=== PATIENT | female | born 1960 | race Caucasian/White ===

== ENCOUNTER 2022-03-09 12:44 | Observation (INO) | payer OTHER, SELFPAY ==
[2022-03-09] VITALS (26 sets, daily range): BP systolic 130–159; BP diastolic 63–118; PULSE 62–88; RESP 18–22; TEMP 36.6–36.8; O2SAT 92–100; BMI 20.3
--- NOTE | ~2022-03-09 | XR_ITS ---
XR chest 1V portable DATE: 03/10/2022 11:59 INDICATION: Shortness of breath. History of COPD, bronchitis TECHNIQUE: Portable upright AP chest on 03/10/2022 at 1153 hours COMPARISON: 03/09/2022 PA and lateral chest 03/04/2019 2 view chest FINDINGS: There is 11 mm soft tissue mass overlying the right apical area. On 2 previous chest radiog raphic examinations of 03/09/2022 and 03/04/2019 this corresponded in location to the first costochondral junction, but with different angulation on this portable view this does not project over the first c ostochondral junction and is presumably pulmonary. CT thorax is recommended. It does not appear to apple ve changed in size since 03/04/2019 and may be calcified, but CT thorax is recommended for more definit rodo assessment, particularly given the history of COPD. Bilateral hyperinflation, consistent with history of COPD. No pulmonary infiltrate or consolidation, pleural effusion or pulmonary vascular congestion or pneumothorax is detected. Heart size is within normal limits. No hilar or mediastinal enlargement is noted. There is diffuse osteopenia. IMPRESSION: 11 mm right apical mass; CT thorax is recommended COPD Osteopenia Reviewed, dictated and finalized at location A.
--- NOTE | ~2022-03-09 | XR_ITS ---
EXAMINATION: XR chest 2V DATE: 03/09/2022 14:20 INDICATION: Shortness of breath. Cough. TECHNIQUE: Frontal and lateral views of the chest were obtained. COMPARISON: None. FINDINGS: The lungs are hyperexpanded, consistent with emphysema. There is mild scarring at the lung apices. No pleural effusion or pneumothorax. The heart size is normal. Again seen is sclerosis of the junction of the right first rib and sternum. There is a chronic compression fracture at thoracolumba r junction. IMPRESSION: 1. Emphysema. 2. Stable mild scarring at the lung apices. Reviewed, dictated and finalized at location A.
--- NOTE | 2022-03-09 13:20 | ECG_ITS ---
Measurements Intervals [place] Rate: 62 P: 43 KS: 141 QRS: 40 QRSD: 102 T: 56 QT: 358 QTc: 364 Interpretive Statements SINUS RHYTHM NONSPECIFIC T-WAVE ABNORMALITY COMPARED TO ECG 03/04/2019 16:17:13 SINUS RHYTHM NOW PRESENT T-WAVE ABNORMALITY NOW PRESENT Electronically Signed On 03-09-2022 15:38:56 CDT by Cristi Meyer MD
[2022-03-09 13:36] LABS: Basophils Percent Auto 0.3 % (0.2-1.2); Eosinophils Absolute Auto 0.1 K/mm3 (0-0.3); Eosinophils Percent Auto 0.9 % (0-4.4); Hematocrit 33.3 % (37.0-47.0); Hemoglobin 10.6 g/dL (12.0-15.0); Immature Granulocyte Absolute 0.02 K/mm3 (0.00-0.031); Immature Granulocyte Percent A 0.3 % (0-0.5); Lymphocytes Absolute Auto 1.39 K/mm3 (0.9-3.2); Lymphocytes Percent Auto 17.5 % (18.3-44.2); Mean Corpuscular HGB Conc 31.8 g/dl (32-36); Mean Corpuscular Hemoglobin 27.5 pg (26-34); Mean Corpuscular Volume 86.5 fl (80-100); Mean Platelet Volume 9.5 fl (7.4-10.4); Monocytes Absolute Auto 0.6 K/mm3 (0.1-0.6); Monocytes Percent Auto 8.1 % (2.6-8.5); Neutrophils Absolute Auto 5.8 K/mm3 (1.3-6.7); Neutrophils Percent Auto 72.9 % (45.5-73.1); Platelet Count Result 259 k/mm3 (150-375); Red Blood Count 3.85 M/mm3 (4.2-5.4)
[2022-03-09 13:49] LABS: Alanine Aminotransferase 22 U/L (6-35); Albumin Level 3.4 g/dL (3.5-5.1); Alkaline Phosphatase 67 U/L (38-126); Anion Gap 5 mmol/L (8-16); Aspartate Amino Transferase 29 U/L (14-36); Bilirubin,Total 0.4 mg/dL (0.2-1.3); Blood Urea Nitrogen 3 mg/dL (7-17); Calcium 7.9 mg/dL (8.4-10.2); Carbon Dioxide 30 mmol/L (22-30); Chloride 105 mmol/L (98-107); Estimated CRCL calculation 82 ml/min; Estimated Glomerular Filt Rate > 60; Glucose 103 mg/dL (65-110); Potassium 2.7 mmol/L (3.4-5.0); Sodium 140 mmol/L (137-145)
--- NOTE | 2022-03-09 14:40 | ED.SOB ---
HPI - SOB/Dyspnea General Chief Complaint: Shortness of Breath/Dyspnea Stated Complaint: cough up phlegm Time Seen by Provider: 03/09/22 14:13 Source: RN notes reviewed History of Present Illness HPI Narrative: Patient presents emergency department from home for shortness of breath. Patient states that she is had an upper respiratory infection for the past 1 week. States that she has had a cough this been productive of green phlegm also states has had subjective fevers at home but does not have a thermometer patient states that she was concerned she was developing pneumonia and came to the emergency department for further evaluation. She denies any chest pain abdominal pain nausea vomiting or any other symptoms. States she has had the COVID vaccination and booster Related Data Allergies Allergy/AdvReac Type Severity Reaction Status Date / Time meperidine Allergy Unknown anaphlaxis Verified 11/19/21 16:52 orange Allergy Unknown Verified 11/19/21 16:52 Review of Systems Review of Systems: Gen.: Denies fevers or chills ENT: Denies congestion Respiratory: See HPI CV: Denies chest pain or palpitations GI: Denies abdominal pain nausea, emesis or diarrhea Musculoskeletal: Denies back pain or muscle pain Neuro: Denies numbness, tingling, weakness or focal weakness Skin: Denies rash Except as documented, all other systems reviewed and negative [facility] Past Medical History Medical History (Updated 03/09/22 @ 16:46 by Zuhair Cruz DO) COPD (chronic obstructive pulmonary disease) Social History Social History (Updated 03/09/22 @ 14:41 by Zuhair Cruz DO) Smoking status: Former smoker Exam Narrative: APPEARANCE: No acute distress, nontoxic, resting in bed EYES: EOMI HEENT: Normocephalic, atraumatic, OMM RESPIRATORY: No respiratory distress decreased breath sounds at the bilateral lung waddell with mild wheezing in the upper lung waddell no rhonchi CARDIOVASCULAR: Regular rate and rhythm without murmurs rubs or gallops. ABDOMINAL: Soft, nontender, nondistended, no rebound or guarding MUSCULOSKELETAl: Moves all extremities. No clubbing, cyanosis or edema. NEURO: Awake and alert. Following commands, speech normal, no focal deficits SKIN:: Warm, dry. No rashes lesions or abrasions PSYCHIATRIC: Normal affect/mood, Course Course Emergency Course: Discussed with MAUREEN Patricia for Dr. Murrell presentation work-up agrees with plan for admission with replacement of potassium Discussed with patient and family results of workup and diagnosis. Discussed need for admission. Patient and family understand and agree to current treatment plan Vital Signs Vital signs: Vital Signs Temperature 97.9 F 03/09/22 13:16 Pulse Rate 76 03/09/22 13:16 Respiratory Rate 22 H 03/09/22 13:16 Blood Pressure 156/80 H 03/09/22 13:16 Pulse Oximetry 95 03/09/22 13:16 Oxygen Delivery Room Air 03/09/22 13:16 Temperature 97.9 F 03/09/22 13:16 Pulse Rate 75 03/09/22 15:37 Respiratory Rate 18 03/09/22 15:37 Blood Pressure 130/106 H 03/09/22 16:33 Pulse Oximetry 92 03/09/22 16:33 Oxygen Delivery Room Air 03/09/22 13:16 MDM - SOB/Dyspnea Lab Data Result diagrams: 03/09/22 13:28 03/09/22 13:28 Labs: Lab Results 03/09/22 03/09/22 03/09/22 Range/Units 13:28 13:28 13:28 WBC 8.0 (4.5-10.0) K/mm3 RBC 3.85 L (4.2-5.4) M/mm3 Hgb 10.6 L (12.0-15.0) g/dL Hct 33.3 L (37.0-47.0) % MCV 86.5 (80-100) fl MCH 27.5 (26-34) pg MCHC 31.8 L (32-36) g/dl RDW 15.0 H (11.5-14.5) % Plt Count 259 (150-375) k/mm3 MPV 9.5 (7.4-10.4) fl Immature Gran % (Auto) 0.3 (0-0.5) % Neut % (Auto) 72.9 (45.5-73.1) % Lymph % (Auto) 17.5 L (18.3-44.2) % [place] % (Auto) 8.1 (2.6-8.5) % Eos % (Auto) 0.9 (0-4.4) % Baso % (Auto) 0.3 (0.2-1.2) % Lymph # (Auto) 1.39 (0.9-3.2) K/mm3 [place] # (Auto) 0.6 (0.1-0.6) K/mm3 Eos
[2022-03-09 14:50] LABS: Magnesium 1.8 mg/dL (1.6-2.3)
[2022-03-09] MEDS: KCL 40 MEQ/WATER 100 ML 100 ML 25 ML IVPB (14:55)
[2022-03-09] MEDS: POTASSIUM CHLORIDE 20 MEQ TABLET 40 MEQ PO (14:56)
[2022-03-09 15:14] LABS: SARS-CoV-2 RNA PCR Negative
[2022-03-09] MEDS: ALBUTEROL SULFATE NEB 2.5 MG/3 ML INH 5 MG INHALATION ×2 (15:25→21:00)
[2022-03-09] MEDS: IPRATROPIUM BR 0.02% INH SOLN 0.5 MG/2.5 ML VIAL INHALATION ×2 (15:25→21:01)
[2022-03-09] MEDS: methylPREDNISolone SOD SUCC 125 MG VIAL IV PUSH (17:10)
--- NOTE | 2022-03-09 17:41 | ADMGEN ---
This patient, Roxanne Zavala, was admitted to Medical Room 347-. Patient/family oriented to hospital policies and general routines including ID bracelet, bed and alarms, visiting hours, pain management, procedures, bathroom and other care routines, personal items, smoking policy, room service/diet, and visiting hours. Information on how to activate the Rapid Response Team has been discussed. Patient/Family are encouraged to report perceived risks to care and to ask questions if they do not understand what they are told or what they should do.
[2022-03-09] MEDS: SODIUM CHLORIDE 0.9% IV 250 ML 10 ML (19:42)
--- NOTE | 2022-03-09 20:29 | PM.IMHP ---
H&P: HPI History of Present Illness Date/Time: Patient was placed observation status for expected length of stay less than 23 hours for management, will plan to re-evaluate tomorrow for improvement. 03/09/22 20:29 Chief Complaint: Shortness of breath Narrative: Ms. Zavala is a 62-year-old female who presented emergency room with complaints shortness of breath and cough x1 week. Patient states she has a known history of COPD and she has had increasing cough over the last week. Patient states her COPD has been very well controlled with daily MDI eyes, but over the last week she has had used her rescue nebulizer 3 times, which she has not had a doing quite some time. Patient denies any fever or chills. Patient denies having to use any oxygen at home. Patient states that 3 days ago she did have multiple episodes of diarrhea, but she has had no recurrence of this. Patient denies any nausea vomiting. Patient denies any chest pain, lightheadedness, dizziness, syncopal, or near syncopal episodes. Patient states she has been taking all medications without difficulty. Patient states she has a known history of COPD, HIV, and cavernous hemangioma. Patient does have very erratic movements of her upper and lower extremities and she states that she sees neurology for this and it is secondary to this cavernous hemangioma. Review of Systems Review of Systems: A 12 point review of systems was completed patient all pertinent positive and negative per HPI the remainder are unremarkable. [facility] Past Medical History Medical History (Updated 03/09/22 @ 20:39 by Belem Macario APRN) Cavernous hemangioma COPD (chronic obstructive pulmonary disease) HIV (human immunodeficiency virus infection) Surgical History Surgical History (Updated 03/09/22 @ 20:39 by Belem Macario APRN) History of hysterectomy History of tonsillectomy Social History Social History Smoking packs per day: 1 Smoking cigarettes per day: 20.0 Years smoked: 55 Smoking pack-years: 55.00 Smoking status: Former smoker Tobacco type: cigarettes Second hand tobacco smoke exposure: Yes Smoking end date: 02/01/22 Alcohol intake: former Substance use: never Spiritual care concerns: No Meds Home Medications and Allergies Home Medications Medication Instructions Recorded Confirmed Type budesonide-formoterol HFA 80 2 puff inhalation BID 03/09/22 03/09/22 History mcg-4.5 mcg/actuation aerosol inhaler (Symbicort) darunavir ethanolate 800 mg tablet 800 mg PO DAILY 03/09/22 03/09/22 History (Prezista) emtricitabine-tenofovir (TDF) See Rx Instructions .Route .COMPLEX 03/09/22 03/09/22 History ritonavir 100 mg capsule 100 mg PO DAILY 03/09/22 03/09/22 History Allergies Allergy/AdvReac Type Severity Reaction Status Date / Time meperidine Allergy Unknown anaphlaxis Verified 11/19/21 16:52 orange Allergy Unknown Verified 11/19/21 16:52 Vital Signs Vital Signs - 24 hr 03/09/22 13:16 03/09/22 14:23 03/09/22 15:25 Temperature 36.6 C Pulse Rate 76 62 Respiratory Rate 22 H 22 H 20 Blood Pressure 156/80 H 145/63 H Pulse Oximetry 95 92 Oxygen Delivery Room Air 03/09/22 15:37 03/09/22 14:28 03/09/22 14:30 Temperature Pulse Rate 75 Respiratory Rate 18 Blood Pressure 155/72 H Pulse Oximetry 96 96 Oxygen Delivery 03/09/22 14:31 03/09/22 14:32 03/09/22 14:45 Temperature Pulse Rate Respiratory Rate Blood Pressure 150/92 H Pulse Oximetry 92 95 92 Oxygen Delivery 03/09/22 14:47 03/09/22 15:00 03/09/22 15:01 Temperature Pulse Rate Respiratory Rate Blood Pressure 145/79 H 159/92 H Pulse Oximetry 93 92 93 Oxygen Delivery 03/09/22 15:25 03/09/22 15:30 03/09/22 15:32 Temperature Pulse Rate Respiratory Rate Blood Pressure 145/99 H Pulse Oximetry 93 100 100 Oxygen Delivery 03/09/22
[2022-03-09] MEDS: EMTRICITABINE-TENOFOVIR 100 MG-150 MG TABLET 2 TAB PO (22:04)
[2022-03-09] MEDS: methylPREDNISolone SOD SUCC 125 MG VIAL 60 MG IV PUSH (22:05)
[2022-03-10] VITALS (15 sets, daily range): BP systolic 126–142; BP diastolic 63–80; PULSE 68–91; RESP 16–22; TEMP 36.6–37; O2SAT 91–98
[2022-03-10] MEDS: ALBUTEROL SULFATE NEB 2.5 MG/3 ML INH 5 MG INHALATION ×4 (02:36→19:50)
[2022-03-10] MEDS: IPRATROPIUM BR 0.02% INH SOLN 0.5 MG/2.5 ML VIAL INHALATION ×4 (02:36→19:51)
[2022-03-10] MEDS: methylPREDNISolone SOD SUCC 125 MG VIAL 60 MG IV PUSH (05:41)
[2022-03-10 05:42] LABS: Hematocrit 36.7 % (37.0-47.0); Hemoglobin 11.5 g/dL (12.0-15.0); Mean Corpuscular HGB Conc 31.3 g/dl (32-36); Mean Corpuscular Hemoglobin 27.1 pg (26-34); Mean Corpuscular Volume 86.4 fl (80-100); Mean Platelet Volume 9.8 fl (7.4-10.4); Platelet Count Result 276 k/mm3 (150-375); Red Blood Count 4.25 M/mm3 (4.2-5.4); Red Cell Distribution Width 15.2 % (11.5-14.5); White Blood Count 5.9 K/mm3 (4.5-10.0)
[2022-03-10 05:52] LABS: Alanine Aminotransferase 23 U/L (6-35); Albumin Level 3.7 g/dL (3.5-5.1); Alkaline Phosphatase 70 U/L (38-126); Anion Gap 3 mmol/L (8-16); Aspartate Amino Transferase 27 U/L (14-36); Bilirubin,Total 0.2 mg/dL (0.2-1.3); Blood Urea Nitrogen 3 mg/dL (7-17); Calcium 8.3 mg/dL (8.4-10.2); Carbon Dioxide 29 mmol/L (22-30); Chloride 106 mmol/L (98-107); Estimated CRCL calculation 100 ml/min; Estimated Glomerular Filt Rate > 60; Glucose 177 mg/dL (65-110); Potassium 3.9 mmol/L (3.4-5.0); Sodium 138 mmol/L (137-145)
[2022-03-10 06:49] LABS: Anisocytosis 1+ (NORMAL); Band Neutrophils Percent 5 % (0-6); Hypochromasia 1+ (NORMAL); Lymphocytes Absolute Manual 0.23 K/mm3 (1.1-4.5); Monocytes Absolute Manual 0.05 K/mm3 (0.1-0.90); Monocytes Percent Manual 1 % (3-9); Neutrophils Percent Manual 90 % (46-73); Platelet Estimate Adequate (Adequate); Poikilocytosis 1+ (NORMAL); Total Cells Counted 100
[2022-03-10] MEDS: FLUTICASONE/SALMETEROL 45-21 MCG INHALER 1 PUFF 2 PUFF INHALATION ×2 (08:18→19:51)
--- NOTE | 2022-03-10 09:00 | PM.IMPN ---
Progress Note: A&P Assessment and Plan (1) Acute hypokalemia: Code(s): E87.6 - Hypokalemia Status: Acute Assessment and Plan: K is 2.7 IV and PO supplementations given in ED Currently K is 3.9 Could be secondary to diarrhea from a few days ago Trend labs (2) Acute exacerbation of chronic obstructive airways disease: Code(s): J44.1 - Chronic obstructive pulmonary disease with (acute) exacerbation Status: Acute Assessment and Plan: Reports increased shortness of breath, sputum production, and wheezes Change to prednisone 40mg PO x 4 days Neb treatments Restart home Symbicort and albuterol when symptoms improves No notable hypoxia, currently on room air Chest xray shows ?Emphysema, Stable mild scarring at the lung apices. Chest xray repeat due to shortness of breath WBC normal Start azithromycin PO (3) HIV (human immunodeficiency virus infection): Code(s): B20 - Human immunodeficiency virus [HIV] disease Status: Acute Assessment and Plan: Continue home medications will follow up outpatient for further management Time Spent With Patient Time with patient: Greater than 35 minutes Subjective Date/time seen: 03/10/22 09:00 Interval history: 03/10/22 09 Patient stated that she is feeling better. However she is still having some shortness of breath issues along with thick green alejo sputum. She also claims have increased wheezes and she has been urinating a lot. She denies any urinating symptoms like frequency or urgency she does states that she urinates quite a bit and she does feel like she fully empties. She does deny chest pain, weakness or fatigue. She does have an active productive cough. Labs and vital signs appear stable at this time patient should be stable for discharge tomorrow. 03/09/22? 20:29 Ms. Zavala is a 62-year-old female who presented emergency room with complaints shortness of breath and cough x1 week.? Patient states she has a known history of COPD and she has had increasing cough over the last week.? Patient states her COPD has been very well controlled with daily MDI eyes, but over the last week she has had used her rescue nebulizer 3 times, which she has not had a doing quite some time.? Patient denies any fever or chills.? Patient denies having to use any oxygen at home.? Patient states that 3 days ago she did have multiple episodes of diarrhea, but she has had no recurrence of this.? Patient denies any nausea vomiting.? Patient denies any chest pain, lightheadedness, dizziness, syncopal, or near syncopal episodes.? Patient states she has been taking all medications without difficulty. Patient states she has a known history of COPD, HIV, and cavernous hemangioma.? Patient does have very erratic movements of her upper and lower extremities and she states that she sees neurology for this and it is secondary to this cavernous hemangioma. Review of Systems Review of Systems: All systems reviewed & are unremarkable except as noted in HPI and below Exam Const: General: cooperative, no acute distress, well developed, alert and awake Nutritional Appearance: well nourished Orientation/consciousness: oriented to person, oriented to place, oriented to time and patient oriented x3 Limitations: no limitations HENMT: Head: normal to inspection Ears: hearing grossly normal bilaterally General nose exam: Normal external nose present Mouth: Yes Normal oral and palatal mucosa present, Yes lip normal and Yes tongue normal Teeth and gingiva: abnormal tooth and associated gingiva and poor dentition Eyes: General: appearance normal, both eyes and all related structures Neck: Neck: normal visual inspection, full ROM, trachea midline and supple Chest: Chest palpation & inspection: normal inspection of the chest Resp: Effort & Inspection: able to speak in complete sentences, Actively coughing productive
--- NOTE | 2022-03-10 09:32 | PM.DS ---
DS: Admitting Diagnosis Discharge Date 03/10/22 DS: Summary Time Spent with Patient Time attestation: Total time spent providing and/or coordinating discharge services: DS: Data Data Completed and Pending Labs on day of discharge: Labs from last 24 hours 03/10/22 03/10/22 03/09/22 05:30 05:30 14:27 WBC 5.9 RBC 4.25 Hgb 11.5 L Hct 36.7 L MCV 86.4 MCH 27.1 MCHC 31.3 L RDW 15.2 H Plt Count 276 MPV 9.8 Immature Gran % (Auto) Not Reportable Neut % (Auto) Not Reportable Lymph % (Auto) Not Reportable [place] % (Auto) Not Reportable Eos % (Auto) Not Reportable Baso % (Auto) Not Reportable Lymph # (Auto) Not Reportable [place] # (Auto) Not Reportable Eos # (Auto) Not Reportable Baso # (Auto) Not Reportable Abs Immat Gran (auto) Not Reportable Absolute Neuts (auto) Not Reportable Absolute Nucleated RBC Not Reportable Total Counted 100 Neutrophils % (Manual) 90 H Band Neutrophils % 5 Lymphocytes % (Manual) 4.0 L Monocytes % (Manual) 1 L Nucleated RBC % Not Reportable Abs Neuts (Manual) 5.60 Abs Lymphs (Manual) 0.23 L Abs Monocytes (Manual) 0.05 L Platelet Estimate Adequate Hypochromasia 1+ Poikilocytosis 1+ Anisocytosis 1+ Sodium 138 Potassium 3.9 Chloride 106 Carbon Dioxide 29 Anion Gap 3 L BUN 3 L Creatinine 0.40 L Estim Creat Clear Calc 100 Estimated GFR > 60 Glucose 177 H Calcium 8.3 L Magnesium Total Bilirubin 0.2 AST 27 ALT 23 Alkaline Phosphatase 70 Total Protein 7.0 Albumin 3.7 SARS-CoV-2 RNA (RT-PCR) Negative 03/09/22 03/09/22 03/09/22 13:28 13:28 13:28 WBC 8.0 RBC 3.85 L Hgb 10.6 L Hct 33.3 L MCV 86.5 MCH 27.5 MCHC 31.8 L RDW 15.0 H Plt Count 259 MPV 9.5 Immature Gran % (Auto) 0.3 Neut % (Auto) 72.9 Lymph % (Auto) 17.5 L [place] % (Auto) 8.1 Eos % (Auto) 0.9 Baso % (Auto) 0.3 Lymph # (Auto) 1.39 [place] # (Auto) 0.6 Eos # (Auto) 0.1 Baso # (Auto) 0.0 Abs Immat Gran (auto) 0.02 Absolute Neuts (auto) 5.8 Absolute Nucleated RBC 0.0 Total Counted Neutrophils % (Manual) Band Neutrophils % Lymphocytes % (Manual) Monocytes % (Manual) Nucleated RBC % 0.0 Abs Neuts (Manual) Abs Lymphs (Manual) Abs Monocytes (Manual) Platelet Estimate Hypochromasia Poikilocytosis Anisocytosis Sodium 140 Potassium 2.7 L* Chloride 105 Carbon Dioxide 30 Anion Gap 5 L BUN 3 L Creatinine 0.50 L Estim Creat Clear Calc 82 Estimated GFR > 60 Glucose 103 Calcium 7.9 L Magnesium 1.8 Total Bilirubin 0.4 AST 29 ALT 22 Alkaline Phosphatase 67 Total Protein 7.0 Albumin 3.4 L SARS-CoV-2 RNA (RT-PCR) Discharge Plan Discharge Consulting providers: Stevo Johnson Patient Instructions: Pain Management (DC) Discharge Medications: No Action ritonavir 100 mg Capsule 100 mg PO DAILY budesonide-formoterol [Symbicort] 80-4.5 mcg/actuation Hfa Aerosol Inhaler 2 puff INHALATION BID Prezista 800 mg Tablet 800 mg PO DAILY emtricitabine-tenofovir (TDF) See Rx Instructions .ROUTE .COMPLEX Rx Instructions: Take one 200mg/300mg tablet by mouth once daily Date of admission: 03/09/22 16:16 Primary Care Provider: PHYSICIAN,OFFICE AUTOMATION CLERK Admitting Provider: Brenton Murrell Attending physician on admission: Brenton Murrell Condition: Stable Quality VTE Prophylaxis VTE prophylaxis: mechanical ordered and pharmacologic ordered (Lovenox)
[2022-03-10] MEDS: AZITHROMYCIN 250 MG TABLET 500 MG PO (11:11)
[2022-03-10] MEDS: guaiFENesin/DEXTROMETHORPHAN 10 ML UDC PO ×2 (14:48→20:39)
[2022-03-10] MEDS: EMTRICITABINE-TENOFOVIR 100 MG-150 MG TABLET 2 TAB PO (20:38)
[2022-03-11] VITALS (7 sets, daily range): BP systolic 121; BP diastolic 71; PULSE 65–88; RESP 12–18; TEMP 36.3; O2SAT 91
[2022-03-11] MEDS: ALBUTEROL SULFATE NEB 2.5 MG/3 ML INH 5 MG INHALATION ×3 (01:26→13:42)
[2022-03-11] MEDS: IPRATROPIUM BR 0.02% INH SOLN 0.5 MG/2.5 ML VIAL INHALATION ×3 (01:27→13:42)
[2022-03-11 05:37] LABS: Basophils Percent Auto 0.2 % (0.2-1.2); Hematocrit 33.6 % (37.0-47.0); Immature Granulocyte Absolute 0.08 K/mm3 (0.00-0.031); Immature Granulocyte Percent A 0.7 % (0-0.5); Lymphocytes Absolute Auto 0.87 K/mm3 (0.9-3.2); Lymphocytes Percent Auto 7.3 % (18.3-44.2); Mean Corpuscular HGB Conc 32.7 g/dl (32-36); Mean Corpuscular Hemoglobin 27.7 pg (26-34); Mean Corpuscular Volume 84.6 fl (80-100); Mean Platelet Volume 9.4 fl (7.4-10.4); Monocytes Absolute Auto 0.6 K/mm3 (0.1-0.6); Monocytes Percent Auto 5.2 % (2.6-8.5); Neutrophils Absolute Auto 10.3 K/mm3 (1.3-6.7); Neutrophils Percent Auto 86.6 % (45.5-73.1); Platelet Count Result 277 k/mm3 (150-375); Red Blood Count 3.97 M/mm3 (4.2-5.4); Red Cell Distribution Width 15.3 % (11.5-14.5); White Blood Count 11.9 K/mm3 (4.5-10.0)
[2022-03-11 05:56] LABS: Alanine Aminotransferase 21 U/L (6-35); Albumin Level 3.3 g/dL (3.5-5.1); Alkaline Phosphatase 56 U/L (38-126); Anion Gap 2 mmol/L (8-16); Aspartate Amino Transferase 25 U/L (14-36); Bilirubin,Total 0.1 mg/dL (0.2-1.3); Blood Urea Nitrogen 9 mg/dL (7-17); Calcium 8.1 mg/dL (8.4-10.2); Carbon Dioxide 32 mmol/L (22-30); Chloride 103 mmol/L (98-107); Estimated CRCL calculation 100 ml/min; Estimated Glomerular Filt Rate > 60; Glucose 141 mg/dL (65-110); Magnesium 1.8 mg/dL (1.6-2.3); Potassium 3.4 mmol/L (3.4-5.0); Sodium 137 mmol/L (137-145)
[2022-03-11] MEDS: predniSONE 20 MG TABLET 40 MG PO (08:09)
[2022-03-11] MEDS: AZITHROMYCIN 250 MG TABLET PO (08:10)
[2022-03-11] MEDS: guaiFENesin/DEXTROMETHORPHAN 10 ML UDC PO (08:13)
[2022-03-11] MEDS: FLUTICASONE/SALMETEROL 45-21 MCG INHALER 1 PUFF 2 PUFF INHALATION (08:51)
--- NOTE | 2022-03-11 12:59 | PM.DS ---
DS: Admitting Diagnosis Discharge Date 03/11/2022 Admitting Diagnosis COPD exacerbation DS: Discharge Diagnosis Discharge Diagnosis (1) Acute exacerbation of chronic obstructive airways disease: Code(s): J44.1 - Chronic obstructive pulmonary disease with (acute) exacerbation Status: Acute Assessment and Plan: Patient presented with increased dyspnea, wheezing, and sputum production Received IV Solu-Medrol. Weaned to prednisone She will continue p.o. prednisone 40 mg to complete a total 5 days Given changes sputum quality, she was started on azithromycin which she will continue for 5 days Symptomatic improvement following DuoNebs Maintained adequate oxygenation on room air Continue home Symbicort BID and rescue albuterol inhaler She will need to follow up with PCP. Appt was made for her to establish with PCP. She may benefit from pulmonology referral. (2) Acute hypokalemia: Code(s): E87.6 - Hypokalemia Status: Acute Assessment and Plan: Potassium was 2.7 on arrival Patient reports diarrhea prior to presentation which is the likely etiology Potassium was supplemented and levels normalized. No further episodes of diarrhea and anticipate potassium levels to remain stable with appropriate PO intake. (3) HIV (human immunodeficiency virus infection): Code(s): B20 - Human immunodeficiency virus [HIV] disease Status: Acute Assessment and Plan: Previously established with ID but her doctor has moved and she needs to be established. Continue emtrictabine-tenofovir and ritonavir Will need ID referral per PCP DS: Summary Hospital Course Hospital Course: Date of admission: 03/09/2022 Date of discharge: 03/11/2022 Roxanne Zavala is a 62-year-old female with a history of HIV and COPD presented to the emergency department or 03/09/2022 with complaints of increased shortness of breath following upper respiratory infection 1 week prior. On presentation to the ED, she remains un to be hypokalemic, CXR showed emphysema with stable mild scarring at the lung apices. She was admitted to the hospitalist service for further evaluation and management. Please see above for further details. She had symptomatic improvement following IV steroids and was transition to p.o. prednisone. Her symptoms were greatly improved. Given her overall improvement, she was determined to no longer require inpatient care and was discharged in hemodynamically stable condition on 03/11/2022. Discussed with the patient worrisome signs and symptoms for which to return and she was educated on her medications. Status at Discharge Functional status at discharge: independent ambulation Overall status at discharge: patient is progressing back to baseline Time Spent with Patient Time attestation: Total time spent providing and/or coordinating discharge services: 45 minutes Time spent: Greater than 30 minutes Exam Narrative: General: Well-nourished, chronically ill-appearing 62-year-old female, sitting up in bed, comfortable, NARD Neuro: awake, alert and oriented x4, speech clear, no focal neuro deficits noted HEENMT: normocephalic, atraumatic, EOMI, sclerae anicteric Respiratory: Faint inspiratory wheezes in right upper lung field, otherwise clear to auscultation, nonlabored breathing, able to speak in complete sentences Cardio: regular rate, regular rhythm with S1-S2 Abdomen: nondistended, normoactive bowel sounds, soft, nontender to palpation Extremities: no edema, erythema, or tenderness to palpation, DP pulses 2+ bilaterally Skin: no rashes or lesions, warm and dry Psych: appropriate mood and affect, judgment and insight intact DS: Data Data Completed and Pending Labs on day of discharge: Labs from last 24 hours 03/11/22 03/11/22 05:31 05:31 WBC 11.9 H RBC 3.97 L Hgb 11.0 L Hct 33.6 L MCV 84.6 MCH 27.7 MCHC 32.7 RDW 15.3 H Plt Count 277 MPV 9.4 Immature G
== END 2022-03-11 14:49 | disposition home or self-care (01) ==
LOC: ANHED 16:46 → ANH3MED 17:19
PROVIDERS: Nurse Practitioner; Admitting Provider Chiropractor; Emergency Provider Emergency Medicine; Visit Provider Internal Medicine
DX: J44.1 Chronic obstructive pulmonary disease with (acute) exacerbation (principal); E87.6 Hypokalemia; Z87.891 Personal history of nicotine dependence; B20 Human immunodeficiency virus [HIV] disease; Z20.822 Contact with and (suspected) exposure to COVID-19
CPT/HCPCS: 36415; 71045; 71046; 80053; 83735; 85025; 87070; 87077; 87185; 87205; 93005; 94640; 96365; 96366; 96374; 96375; 96376; 99285; A9270; C9803; G0378; G0379; J2930; J3480; J7050; J7512; U0003; U0005

== ENCOUNTER 2022-06-14 15:07 | Emergency (ER) | payer OTHER, SELFPAY ==
--- NOTE | ~2022-06-14 | XR_ITS ---
EXAM: XR elbow RT min 3V DATE: 06/14/2022 15:44 HISTORY: pain,SWELLING . COMPARISON: None available. FINDINGS: Decreased mineralization. No fracture or dislocation. No lytic or blastic lesion. Mild deg enerative change in the elbow. Enthesopathy at the radial tuberosity. Smoothly marginated, nonaggress rodo osseous excrescence posteriorly off the humerus, possible osteochondroma. No erosion or periostea l change. Soft tissues within normal limits. IMPRESSION: No acute osseous finding in the right elbow. Reviewed, dictated and finalized at location K.
[2022-06-14 15:10] VITALS: BP 137/93; PULSE 70; RESP 18; TEMP 36.7
--- NOTE | 2022-06-14 15:33 | ED.GENADULT ---
HPI - General Adult General Chief complaint: Extremity Problem,Nontraumatic Stated complaint: need my arm looked at right arm, chronic issue Time Seen by Provider: 06/14/22 15:15 History of Present Illness HPI narrative: Patient is a 8-year-old female who presents ER with right elbow pain. Ongoing for years. She is seeing Dr. Fraias and had injections in her arm which do not help. She reports when she is performing supination or pronation she feels clicking and discomfort which is just continuing to worsen. No new trauma. No new numbness or tingling. Patient reports she recently had an IV in the same arm and had some potassium infused. She feels a little swelling in the area but no palpable cords. She reports that when she had the IV it did not extravasate. Related Data Home Medications Medication Instructions Recorded Confirmed budesonide-formoterol HFA 80 2 puff inhalation BID 03/09/22 03/09/22 mcg-4.5 mcg/actuation aerosol inhaler (Symbicort) darunavir ethanolate 800 mg tablet 800 mg PO DAILY 03/09/22 03/09/22 (Prezista) emtricitabine-tenofovir (TDF) See Rx Instructions .Route .COMPLEX 03/09/22 03/09/22 ritonavir 100 mg capsule 100 mg PO DAILY 03/09/22 03/09/22 Allergies Allergy/AdvReac Type Severity Reaction Status Date / Time meperidine Allergy Unknown anaphlaxis Verified 11/19/21 16:52 orange Allergy Unknown Verified 11/19/21 16:52 [facility] Past Medical History Medical History (Updated 06/14/22 @ 17:19 by Balaji Harrington MD) Cavernous hemangioma COPD (chronic obstructive pulmonary disease) HIV (human immunodeficiency virus infection) Surgical History Surgical History (Updated 03/09/22 @ 20:39 by Belem Macario APRN) History of hysterectomy History of tonsillectomy Social History Social History Smoking packs per day: 1 Smoking cigarettes per day: 20.0 Years smoked: 55 Smoking pack-years: 55.00 Smoking status: Former smoker Tobacco type: cigarettes Second hand tobacco smoke exposure: Yes Smoking end date: 02/01/22 Alcohol intake: former Substance use: never Spiritual care concerns: No Exam Narrative: GENERAL: Well-appearing, well-nourished, and in no acute distress. HEAD: Normocephalic, atraumatic. HEART: Regular rate and rhythm. Normal peripheral pulses. EXTREMITIES: Normal range of motion. No edema. Left elbow with pronation and supination you can feel some clicking and movement. No point tenderness at the radial head or olecranon or epicondyles. No palpable cord in the antecubital fossa. Area of swelling of the forearm seems to be at a muscle that is nontender, no erythema or evidence of abscess. SKIN: Warm, dry, no rash. NEURO: Alert and oriented x3. PSYCH: Normal mood and affect. Course Course Emergency Course: Patient informed of results. Suspect patient has a ligamentous tear that is causing some instability of the radial head. Will give Ortho clinic number. Vital Signs Vital signs: Vital Signs Temperature 98.1 F 06/14/22 15:10 Pulse Rate 70 06/14/22 15:10 Respiratory Rate 18 06/14/22 15:10 Blood Pressure 137/93 H 06/14/22 15:10 Oxygen Delivery Room Air 06/14/22 15:10 Temperature 98.1 F 06/14/22 15:10 Pulse Rate 70 06/14/22 15:10 Respiratory Rate 18 06/14/22 15:10 Blood Pressure 137/93 H 06/14/22 15:10 Oxygen Delivery Room Air 06/14/22 15:10 Medical Decision Making Vital Signs Vital Signs: Vital Signs Temperature 98.1 F 06/14/22 15:10 Pulse Rate 70 06/14/22 15:10 Respiratory Rate 18 06/14/22 15:10 Blood Pressure 137/93 H 06/14/22 15:10 Oxygen Delivery Room Air 06/14/22 15:10 Temperature 98.1 F 06/14/22 15:10 Pulse Rate 70 06/14/22 15:10 Respiratory Rate 18 06/14/22 15:10 Blood Pressure 137/93 H 06/14/22 15:10 Oxygen Delivery Room Air 06/14/22 15:10 Imaging Data Radiologist's alberto
== END 2022-06-14 17:25 | disposition home or self-care (01) ==
PROVIDERS: Emergency Provider Emergency Medicine; PCP Physician Assistant
DX: M25.521 Pain in right elbow (principal); J44.9 Chronic obstructive pulmonary disease, unspecified; Z21 Asymptomatic human immunodeficiency virus [HIV] infection status; Z90.710 Acquired absence of both cervix and uterus; Z87.891 Personal history of nicotine dependence
CPT/HCPCS: 73080; 99283

== ENCOUNTER 2022-08-05 12:31 | Outpatient (CLI) | payer OTHER, SELFPAY ==
--- NOTE | 2022-08-05 | ECHO_ITS ---
Patient Info Name: Roxanne Zavala Age: 62 years : 1960 Gender: Female Ht: 63 in Wt: 104 lbs BSA: 1.44 m2 HR: 67 bpm BP: 157 / 97 mmHg Heart Rhythm: Sinus Rhythm Exam Date: 08/05/2022 1:32 PM Exam Location: [facility] Patient Status: Outpatient Admit Date: 08/05/2022 Staff Ordering Physician: JoshDaria APRN Licensing Director: Mehdi Aviles RDCS Attending Provider: Daria Castellanos APRN Exam Type: CA echo doppler color flow Study Info Indications - COPD Complete two-dimensional, color flow and Doppler transthoracic echocardiogram is performed. Summary 1. Complete two-dimensional, color flow and Doppler transthoracic echocardiogram is performed. 2. Left ventricular systolic function is normal, estimated at 50-55%. 3. The left ventricular diastolic function is grade I diastolic dysfunction. 4. Right ventricular systolic function is normal. 5. There is mild mitral valve regurgitation. 6. There is mild tricuspid valve regurgitation. Left Ventricle Left ventricular chamber dimension is normal. Left ventricular systolic function is normal, estimated at 50-55%. There is no increased left ventricular wall thickness. The left ventricular diastolic function is grade I diastolic dysfunction. Right Ventricle Right ventricular chamber dimension is normal. Right ventricular systolic function is normal. Left Atria Left atrial chamber dimension is normal. Right Atria Right atrial chamber dimension is normal. Atrial Septum Intact interatrial septum visualized by color flow imaging. Aortic Valve The aortic valve is not well visualized. There is no aortic valve stenosis. There is no aortic valve regurgitation. Pulmonic Valve The pulmonic valve is not well visualized. Mitral Valve The mitral valve has normal leaflets. There is no mitral valve stenosis. There is mild mitral valve regurgitation. Tricuspid Valve The tricuspid valve leaflets are normal. There is no significant tricuspid valve stenosis. There is mild tricuspid valve regurgitation. Pericardium/Pleural There is no pericardial effusion. Inferior Vena Cava Normal inferior vena cava with >50% collapse upon inspiration consistent with normal right atrial pressure. Aorta The aortic root size at the sinus of Valsalva is normal. Left Ventricular Outflow Tract Name Value Normal LVOT 2D LVOT Diameter 1.8 cm LVOT Doppler LVOT Peak Gradient 3 mmHg LVOT Mean Gradient 2 mmHg LVOT VTI 17 cm LVOT VTI/AV VTI Ratio 0.7 LVOT Stroke Volume 44 ml LVOT CO 3.0 l/min LVOT CI 2.1 l/min/m2 Mitral Valve Name Value Normal MV Doppler MV Peak Gradient
--- NOTE | 2022-08-06 09:34 | WPDPFTINT ---
PFT Procedure Performed PFT Procedure Performed Spirometry with Pre/Post Bronchodilator Plethysmography (Lung Vol) Diffusing Cap (DLCO) Flow Vol Loop PFT Interpretation Lung volumes were measured with the body plethysmography method. The elevated FRC and RV could be related to air trapping. Spirometry showed diminished expiratory flow rates and a diminished FEV1 to FVC ratio 43%, indicative of obstructive airway disease. Following administration of a bronchodilator, there was no significant change in the expiratory flow rates. Lung diffusion capacity is moderately reduced at 43% predicted. The flow volume loop is consistent with emphysema. Impression: Moderately severe obstructive airway disease with evidence of air trapping and no response to bronchodilators on this testing. Moderately reduced lung diffusion capacity.
--- NOTE | 2022-08-06 09:39 | WPDSIXMINUTE ---
Six Minute Walk Procedure Procedure Performed Pulmonary Stress Test (6 min walk) Six Minute Walk Six Minute Walk: This 6 minute walk test was carried out with the patient breathing ambient air. The pre walk oxyhemoglobin saturation was 95%. The patient walked over 365 m with no stops during testing. During the walk, His is the oxyhemoglobin saturation remained 94% or higher. Impression: No evidence of oxyhemoglobin desaturation on this testing.
== END 2022-08-05 12:32 | disposition home or self-care (01) ==
LOC: ANHCARD 12:35
PROVIDERS: PCP Physician Assistant; Visit Provider Nurse Practitioner Gerontology
DX: J44.9 Chronic obstructive pulmonary disease, unspecified (principal); R94.2 Abnormal results of pulmonary function studies
CPT/HCPCS: 93306; 94060; 94726; 94729

== ENCOUNTER 2024-02-01 11:27 | Outpatient (CLI) | payer OTHER, SELFPAY ==
--- NOTE | ~2024-02-01 | CT_ITS ---
CT Scan of the Chest without Contrast: Clinical Indication: Lung cancer screening, nicotine dependence Technique: Contiguous sections were acquired throughout the chest without intravenous contrast. Dose reduction technique was used on this scan by utilizing automated exposure control and iterative recon struction technique. The dose-length product (DLP) was 66.12 mGy-cm. Findings: There is no evidence of any significant mediastinal, hilar or axillary lymphadenopathy. Coronary tarik ry calcifications are present.. There is no evidence of pleural or pericardial effusion. There is severe emphysema with biapical scarring and biapical calcified granulomas. There is a 4 mm r ight upper lobe pulmonary nodule (axial image 52). Images through the upper abdomen reveal 2.9 cm hypodense, noncystic hepatic mass in the right hepatic lobe there is an additional 1.6 cm hypodense mass in the anterior left hepatic lobe.. Chronic compre ssion deformity of L1 noted. Impression: Lung RADS 2-S: Benign appearance. 12 month follow-up screening CT advised. 2 hypodense hepatic masses, measuring 2.9 cm and 1.6 cm in size respectively. These are indeterminate . Pre and postcontrast hepatic MR recommended to further assess. Reviewed, dictated and finalized at location . Impression: Lung RADS 2-S: Benign appearance. 12 month follow-up screening CT advised. 2 hypodense hepatic masses, measuring 2.9 cm and 1.6 cm in size respectively. T hese are indeterminate. Pre and postcontrast hepatic MR recommended to further assess.
== END 2024-02-01 11:28 | disposition home or self-care (01) ==
LOC: ANHIMG 11:33
PROVIDERS: PCP Physician Assistant; Visit Provider Physician Assistant
DX: Z12.2 Encounter for screening for malignant neoplasm of respiratory organs (principal); Z87.891 Personal history of nicotine dependence
CPT/HCPCS: 71271

== ENCOUNTER 2024-03-01 16:33 | Outpatient (CLI) | payer OTHER, SELFPAY ==
--- NOTE | ~2024-03-01 | MR_ITS ---
EXAMINATION: MR abdomen wo/w con DATE: 03/01/2024 18:11 INDICATION: Liver mass. TECHNIQUE: Magnetic resonance imaging (MRI) of the abdomen was performed without and with 9 mL MultiH ance intravenous contrast. COMPARISON: Chest CT 02/01/2024 FINDINGS: There are 5 hemangiomas in the liver measuring up to 3.2 cm characterized by interrupted peripheral p uddling of contrast. There is an 8 mm arterially hyperenhancing mass in left hepatic lobe without was hout, likely a hemangioma or focal nodular hyperplasia. There are a few cysts in the liver measuring up to 7 mm. The gallbladder, spleen, pancreas, adrenal glands, and kidneys are normal. There are no d ilated loops of bowel. IMPRESSION: 1. Benign masses in the liver. Reviewed, dictated and finalized at location A.
== END 2024-03-01 16:34 | disposition home or self-care (01) ==
PROVIDERS: PCP Physician Assistant; Visit Provider Physician Assistant
DX: D13.4 Benign neoplasm of liver (principal)
CPT/HCPCS: 74183; A9577

== ENCOUNTER 2024-04-04 07:12 | Observation (INO) | payer OTHER, SELFPAY ==
[2024-04-04] VITALS (29 sets, daily range): BP systolic 99–160; BP diastolic 67–95; PULSE 84–115; RESP 16–24; TEMP 36.3–37.3; O2SAT 88–99; BMI 16.7
--- NOTE | ~2024-04-04 | XR_ITS ---
EXAMINATION: XR chest 2V DATE: 04/04/2024 08:40 INDICATION: Respiratory distress with cough and shortness of breath TECHNIQUE: frontal and lateral views of the chest were obtained. COMPARISON: Chest radiograph dated 03/10/[address] dated 02/01/2024 FINDINGS: Emphysema with increased lucency and architectural distortion in the bilateral upper lung zones. Larg e calcified pulmonary nodules seen at the bilateral apices on prior CT are partially obscured by the anterior first ribs. Bandlike discoid atelectasis at the medial left lung base. There is increased in terstitial pattern in the bilateral mid and lower lung zones. No other pulmonary consolidation or mor e focal airspace opacities. No pleural effusion or pneumothorax. The cardiomediastinal silhouette is normal. IMPRESSION: 1. Emphysema with increased interstitial pattern in the bilateral mid and lower lung zones appears to primarily to bronchovascular crowding resulting hyperexpansion of the upper lungs and bronchial wall thickening likely chronic bronchitis. Superimposed mild pulmonary edema or early pneumonia not exclu dable. Reviewed, dictated and finalized at location B. IMPRESSION: 1. Emphysema with increased interstitial pattern in the bilateral mid and lower lung zones appears to primarily to bronchovascular crowding resulting hyperexp ansion of the upper lungs and bronchial wall thickening likely chronic bronchit is. Superimposed mild pulmonary edema or early pneumonia not excludable.
--- NOTE | 2024-04-04 07:29 | ECG_ITS ---
Test Date: 2024-04-04 07:25:58 Measurements Intervals [place] Rate: 94 P: 81 ID: [id number] QRS: 71 QRSD: 98 T: 63 QT: 357 QTc: 448 Interpretive Statements SINUS RHYTHM DELAYED PRECORDIAL R/S TRANSITION BORDERLINE ECG No previous ECG available for comparison Electronically Signed On 04-04-2024 11:41:01 CDT by Jimmie Gordon D.O.
[2024-04-04] MEDS: IPRATROPIUM 0.5 MG/ALBUTEROL SULFATE 2.5 MG AMPUL.NEB 3 ML 12 ML INHALATION (08:04)
[2024-04-04] MEDS: MAGNESIUM SULF 2 GM/WATER 50ML 2 GM/50 ML BAG IVPB (08:05)
[2024-04-04] MEDS: dexAMETHasone SOD PHOS INJ 10 MG/ML 1 ML VIAL IV PUSH (08:06)
[2024-04-04 08:12] LABS: Alveolar/Arterial O2 Gradient 82.2 mmHg; Base Excess ABG 2.2 mEq/l (+/-2.0); Fractional Inspired Oxygen 28 %; HCO3 ABG 26.7 mEq/l (22.0-26.0); Oxygen Content ABG 16.2 %vol (16.0-22.0); Oxygen Saturation ABG 94.3 % (95.0-100.0); Oxyhemoglobin 92.1 % THb (90.0-100.0); PCO2 ABG 41.1 mmHg (35.0-45.0); PO2 ABG 68.9 mmHg (80.0-100.0); PO2 FiO2 Ratio Arterial Blood 2.46 %; Site Drawn RIGHT BRACHIAL; Total Hemoglobin 12.5 g/dL (12.0-18.0); pH ABG 7.431 (7.350-7.450)
[2024-04-04 08:13] LABS: Device NASAL CANNULA
[2024-04-04 08:14] LABS: Basophils Percent Auto 0.3 % (0.2-1.2); Eosinophils Absolute Auto 0.2 K/mm3 (0-0.3); Eosinophils Percent Auto 1.4 % (0-4.4); Hematocrit 38.8 % (37.0-47.0); Hemoglobin 12.5 g/dL (12.0-15.0); Immature Granulocyte Percent A 0.7 % (0-0.5); Lymphocytes Percent Auto 5.7 % (18.3-44.2); Mean Corpuscular HGB Conc 32.2 g/dl (32-36); Mean Corpuscular Hemoglobin 26.7 pg (26-34); Mean Corpuscular Volume 82.7 fl (80-100); Mean Platelet Volume 8.9 fl (7.4-10.4); Monocytes Absolute Auto 0.7 K/mm3 (0.1-0.6); Monocytes Percent Auto 5.2 % (2.6-8.5); Neutrophils Absolute Auto 12.1 K/mm3 (1.3-6.7); Neutrophils Percent Auto 86.7 % (45.5-73.1); Platelet Count Result 371 k/mm3 (150-375); Red Blood Count 4.69 M/mm3 (4.2-5.4); Red Cell Distribution Width 13.3 % (11.5-14.5)
--- NOTE | 2024-04-04 08:19 | ED.GENADULT ---
HPI - General Adult General Chief complaint: Shortness of Breath/Dyspnea Stated complaint: sob Time Seen by Provider: 04/04/24 07:26 History of Present Illness HPI narrative: this is a 64-year-old female with history of HIV and emphysema (on 2lpm o2 prn/nighttime) presenting with shortness of breath. patient is noticed that she has had fever and chills and increased mucus production. She says this feels similar when she has had pneumonia in the past. Patient is still taking her HAART therapy but does not follow with an Infectious Disease doctor anymore and believes her medication has . Unknown CD4 count. No lower extremity edema or history of heart failure. Related Data Home Medications Medication Instructions Recorded Confirmed budesonide-formoterol HFA 80 2 puff inhalation BID 03/09/22 03/09/22 mcg-4.5 mcg/actuation aerosol inhaler (Symbicort) darunavir 800 mg tablet (Prezista) 800 mg PO DAILY 03/09/22 03/09/22 emtricitabine-tenofovir (TDF) See Rx Instructions .Route .COMPLEX 03/09/22 03/09/22 ritonavir 100 mg capsule 100 mg PO DAILY 03/09/22 03/09/22 Allergies Allergy/AdvReac Type Severity Reaction Status Date / Time meperidine Allergy Unknown anaphlaxis Verified 04/04/24 07:23 orange Allergy Unknown Hives Verified 04/04/24 07:23 [facility] Past Medical History Medical History Cavernous hemangioma COPD (chronic obstructive pulmonary disease) HIV (human immunodeficiency virus infection) Surgical History Surgical History (Updated 03/09/22 @ 20:39 by Belem Macario APRN) History of hysterectomy History of tonsillectomy Social History Social History Smoking packs per day: 1 Smoking cigarettes per day: 20.0 Years smoked: 55 Smoking pack-years: 55.00 Smoking status: Former smoker Tobacco type: cigarettes Second hand tobacco smoke exposure: Yes Smoking end date: 02/01/22 Alcohol intake: former Substance use: never Spiritual care concerns: No Exam Narrative: APPEARANCE: No apparent distress. Patient appears older than her stated age Head: atraumatic. EYES: EOMI, NOSE: Atraumatic NECK: Trachea midline RESPIRATORY: no increased rate of breathing, speaking in full sentences, decreased air entry in all [place] CARDIOVASCULAR: RRR, ABDOMINAL: Non-distended MUSCULOSKELETAl: No obvious deformities NEURO: Alert. Moving 4/4 extremities SKIN:: Warm, dry. Normal color PSYCHIATRIC: Normal affect Course Vital Signs Vital signs: Vital Signs Temperature 99.2 F 04/04/24 07:16 Pulse Rate 99 04/04/24 07:16 Respiratory Rate 20 04/04/24 07:16 Blood Pressure 142/95 H 04/04/24 07:16 Pulse Oximetry 96 04/04/24 07:16 Oxygen Delivery Nasal Cannula 04/04/24 07:16 Oxygen Flow Rate 2 04/04/24 07:16 Temperature 99.2 F 04/04/24 07:16 Pulse Rate 103 H 04/04/24 10:16 Respiratory Rate 22 H 04/04/24 10:16 Blood Pressure 119/70 04/04/24 10:16 Pulse Oximetry 89 L 04/04/24 10:16 Oxygen Delivery Nasal Cannula 04/04/24 07:27 Oxygen Flow Rate 2 04/04/24 07:27 Medical Decision Making MDM Narrative Medical decision making narrative: -Course: 64-year-old female with emphysema and HIV presenting with SANDI, increased sputum production, increased oxygen requirements. White count 14. X-ray showed chronic lung disease and possibly early pneumonia. Patient started on ceftriaxone and azithromycin. Given an hour long breathing treatment with dexamethasone magnesium. Patient be admitted hospital for further management. CD4 is pending. lab is a send out. -DDX includes but is not limited to: COPD exacerbation, pneumonia, pneumothorax, -Co-morbidities complicating care: HIV, emphysema -Independent interpretation of studies: White count 14. ABG 7.43/41/68.9/26.7 metabolic panel shows CO2 retention pattern. CD4 pending. Viral
[2024-04-04 08:22] LABS: Alanine Aminotransferase 17 U/L (6-35); Alkaline Phosphatase 77 U/L (38-126); Anion Gap 5 mmol/L (4-12); Aspartate Amino Transferase 28 U/L (14-36); Bilirubin,Total 0.6 mg/dL (0.2-1.3); Blood Urea Nitrogen 10 mg/dL (7-17); Calcium 8.6 mg/dL (8.4-10.2); Carbon Dioxide 32 mmol/L (22-30); Chloride 96 mmol/L (98-107); Estimated CRCL calculation 77 ml/min; Estimated Glomerular Filt Rate > 60; Glucose 111 mg/dL (65-110); Potassium 3.7 mmol/L (3.4-5.0); Sodium 133 mmol/L (137-145)
[2024-04-04 08:42] LABS: Lactate Dehydrogenase 180 U/L (120-246)
[2024-04-04 08:45] LABS: Influenza A QL RT-PCR Negative (Negative); Influenza B QL RT-PCR Negative (Negative); RSV RNA, RT-PCR Negative (Negative); SARS-CoV-2 RNA PCR Negative (Negative)
[2024-04-04 11:38] LABS: Procalcitonin 0.1 ng/mL
[2024-04-04] MEDS: methylPREDNISolone SOD SUCC 125 MG VIAL 60 MG IV PUSH ×3 (13:26→23:26)
[2024-04-04] MEDS: AZITHROMYCIN 500 MG/NS 250 ML 500 MG/250 ML BAG 250 MG IVPB (13:27)
--- NOTE | 2024-04-04 13:46 | ADMGEN ---
This patient, Roxanne Zavala, was admitted to [facility] Surg Room 321-02. Patient/family oriented to hospital policies and general routines including ID bracelet, bed and alarms, visiting hours, pain management, procedures, bathroom and other care routines, personal items, smoking policy, room service/diet, and visiting hours. Information on how to activate the Rapid Response Team has been discussed. Patient/Family are encouraged to report perceived risks to care and to ask questions if they do not understand what they are told or what they should do. Report from Leti in ER.
[2024-04-04] MEDS: IPRATROPIUM 0.5 MG/ALBUTEROL SULFATE 2.5 MG AMPUL.NEB 3 ML INHALATION ×2 (15:19→20:30)
--- NOTE | 2024-04-04 15:39 | PM.IMHP ---
H&P: HPI History of Present Illness Date/Time: 04/04/24 15:39 Chief Complaint: shortness of breath Narrative: This is a 64-year-old female with emphysema, chronic hypoxic respiratory failure on 2 L nasal cannula as needed and at nighttime, and he may on immunodeficiency virus who presented to the emergency department via EMS from home for evaluation of shortness of breath. The patient provides the following history. She endorses an increase in cough over the past month or so with increased mucus production more recently. She is becoming increasingly short of breath and she reports having fever and chills. Regarding her HIV status, she reports that she takes antivirals but does not follow with and infectious disease specialists and believes her medications has . She does not know her last CD4 count. In the ED: SpO2 has been as low as 88% on her typical 2 L. she was afebrile on arrival. Blood pressures have been stable. Labs are significant for a WBC count of 14.0 sodium 133, chloride 96, carbon dioxide 32, BUN 0.40, procalcitonin 0.1. Respiratory panel was negative. Chest x-ray showed emphysema with findings suggestive of chronic bronchitis however superimposed mild pulmonary edema or early pneumonia not excludable. She received an hour long DuoNeb treatment, dexamethasone, magnesium, azithromycin, and ceftriaxone and she is being admitted in this setting for further treatment. Review of Systems Review of Systems: - CONSTITUTIONAL: Denies weight loss, fever and chills. - HEENT: Denies changes in vision and hearing - RESPIRATORY: reports SOB and cough. - CV: Denies palpitations and CP. - GI: Denies abdominal pain, nausea, vomiting and diarrhea. - : Denies dysuria and urinary frequency. - MSK: Denies myalgia and joint pain. - SKIN: Denies rash and pruritus. - NEUROLOGICAL: Denies headache and syncope. - PSYCHIATRIC: Denies recent changes in mood. Denies anxiety and depression. [facility] Past Medical History Medical History Cavernous hemangioma COPD (chronic obstructive pulmonary disease) HIV (human immunodeficiency virus infection) Surgical History Surgical History (Updated 03/09/22 @ 20:39 by Belem Macario APRN) History of hysterectomy History of tonsillectomy Family History Family History (Updated 04/04/24 @ 13:49 by Janet Dasilva RN) Grandparent Diabetes mellitus Mother Diabetes mellitus Social History Social History Smoking packs per day: 1 Smoking cigarettes per day: 20.0 Years smoked: 55 Smoking pack-years: 55.00 Smoking status: Former smoker Tobacco type: cigarettes Second hand tobacco smoke exposure: Yes Smoking end date: 02/01/22 Alcohol intake: never Substance use: never Do You Feel Safe in your Home?: Yes Lack of Transportation: No Lack of Food: Never True Current Housing: I Have Housing Concerned About Future Housing: No Difficulty Paying Gas/Electric Bills: No Difficulty Paying for Meds: No Currently Unemployed: No Education: Don't Know Difficulty w/ Childcare or Family Care: No Spiritual care concerns: No Meds Home Medications and Allergies Home Medications Medication Instructions Recorded Confirmed Type budesonide-formoterol HFA 80 2 puff inhalation BID 03/09/22 04/04/24 History mcg-4.5 mcg/actuation aerosol inhaler (Symbicort) darunavir 800 mg tablet (Prezista) 800 mg PO DAILY 03/09/22 04/04/24 History emtricitabine-tenofovir (TDF) See Rx Instructions .Route .COMPLEX 03/09/22 04/04/24 History ritonavir 100 mg capsule 100 mg PO DAILY 03/09/22 04/04/24 History albuterol sulfate 90 mcg/actuation 1 inh inhalation QID PRN shortness 03/11/22 04/04/24 Rx aerosol inhaler of breath or wheezing #6.7 grams losartan 25 mg tablet 25 mg PO DAILY 04/04/24 04/04/24 History Allergies Allergy/AdvReac T
[2024-04-04] MEDS: EMTRICITABINE-TENOFOVIR 100 MG-150 MG TABLET 2 TAB PO (17:58)
[2024-04-04] MEDS: FLUTICASONE/SALMETEROL 45-21 MCG INHALER 1 PUFF 2 PUFF INHALATION (20:30)
[2024-04-04] MEDS: BENZOCAINE/MENTHOL (*BKC) 18 EA LOZENGE 1 LOZENGE PO (23:26)
[2024-04-05] VITALS (11 sets, daily range): BP systolic 118–140; BP diastolic 76–80; PULSE 79–105; RESP 18–22; TEMP 36.4–36.7; O2SAT 91–96; BMI 16.7
[2024-04-05] MEDS: IPRATROPIUM 0.5 MG/ALBUTEROL SULFATE 2.5 MG AMPUL.NEB 3 ML INHALATION ×4 (02:05→20:09)
[2024-04-05] MEDS: methylPREDNISolone SOD SUCC 125 MG VIAL 60 MG IV PUSH ×4 (05:19→21:10)
[2024-04-05] MEDS: FLUTICASONE/SALMETEROL 45-21 MCG INHALER 1 PUFF 2 PUFF INHALATION ×2 (07:05→20:09)
[2024-04-05] MEDS: EMTRICITABINE-TENOFOVIR 100 MG-150 MG TABLET 2 TAB PO (08:52)
[2024-04-05] MEDS: LOSARTAN POTASSIUM 25 MG TABLET PO (08:53)
[2024-04-05] MEDS: BENZOCAINE/MENTHOL (*BKC) 18 EA LOZENGE 1 LOZENGE PO (08:55)
[2024-04-05] MEDS: AZITHROMYCIN 500 MG/NS 250 ML 500 MG/250 ML BAG 250 MG IVPB (13:01)
--- NOTE | 2024-04-05 16:38 | WPDPN ---
Progress Note: A&P Assessment and Plan (1) Hypoxic respiratory failure: Code(s): J96.91 - Respiratory failure, unspecified with hypoxia Status: Acute (2) PNA (pneumonia): Code(s): J18.9 - Pneumonia, unspecified organism Status: Acute (3) HIV (human immunodeficiency virus infection): Code(s): B20 - Human immunodeficiency virus [HIV] disease Status: Acute Plan Interval history 04/05/2023: patient with history of severe COPD stats has been doing well until last few days developed cough, shortness of breathe and wheezing, patient was treated with steroids, bronchodilators in ER stats feeling little better now, will continue steroids and bronchodilators and monitor. Subjective Date/time seen: 04/05/24 16:38 Interval history: Chief Complaint: shortness of breath [id number]: This is a 64-year-old female with emphysema, chronic hypoxic respiratory failure on 2 L nasal cannula as needed and at nighttime, and he may on immunodeficiency virus who presented to the emergency department via EMS from home for evaluation of shortness of breath. The patient provides the following history. She endorses an increase in cough over the past month or so with increased mucus production more recently. She is becoming increasingly short of breath and she reports having fever and chills. Regarding her HIV status, she reports that she takes antivirals but does not follow with and infectious disease specialists and believes her medications has . She does not know her last CD4 count. In the ED: SpO2 has been as low as 88% on her typical 2 L. she was afebrile on arrival. Blood pressures have been stable. Labs are significant for a WBC count of 14.0 sodium 133, chloride 96, carbon dioxide 32, BUN 0.40, procalcitonin 0.1. Respiratory panel was negative. Chest x-ray showed emphysema with findings suggestive of chronic bronchitis however superimposed mild pulmonary edema or early pneumonia not excludable. She received an hour long DuoNeb treatment, dexamethasone, magnesium, azithromycin, and ceftriaxone and she is being admitted in this setting for further treatment. Interval history 04/05/2023: patient with history of severe COPD stats has been doing well until last few days developed cough, shortness of breathe and wheezing, patient was treated with steroids, bronchodilators in ER stats feeling little better now, will continue steroids and bronchodilators and monitor. Review of Systems Review of Systems: - CONSTITUTIONAL: Denies weight loss, fever and chills. - HEENT: Denies changes in vision and hearing - RESPIRATORY: reports SOB and cough. - CV: Denies palpitations and CP. - GI: Denies abdominal pain, nausea, vomiting and diarrhea. - : Denies dysuria and urinary frequency. - MSK: Denies myalgia and joint pain. - SKIN: Denies rash and pruritus. - NEUROLOGICAL: Denies headache and syncope. - PSYCHIATRIC: Denies recent changes in mood. Denies anxiety and depression. Exam Narrative: General: patient is comfortable NAD HEENT: eyes are clear nonicteric, normocephalic, atraumatic. Oral mucosa moist. RESP: CTA HEART: RR S1S2 LUNGS: CTA ABD: obese BS+, difffusely tender. SKIN: no obevious rash EXTREMITIES: no edema NEURO:A&O grossly intact PSYCH: Pleasant and cooperative with normal mood and affect Objective Data Vital Signs Vital Signs: Vital Signs - 24 hr 04/04/24 20:30 04/04/24 20:30 04/04/24 20:42 Temperature Pulse Rate 96 96 93 Respiratory Rate 20 22 H Blood Pressure Pulse Oximetry 94 Oxygen Delivery Nasal Cannula Oxygen Flow Rate 2 Fraction of Inspired Oxygen 28 04/04/24 21:17 04/05/24 02:05 04/05/24 02:13 Temperature 36.5 C Pulse Rate 91 83 85 Respiratory Rate 17 20 20 Blood Pressure 125/81 Pulse Oximetry 94 Oxygen Delivery Oxygen Flow Rate Fraction of Inspired Oxygen 04/05/24 06:08 04/05/24 07:05 04/05/24 07
[2024-04-06] VITALS (9 sets, daily range): BP systolic 122–131; BP diastolic 77–86; PULSE 81–110; RESP 18–22; TEMP 36.4–36.5; O2SAT 91–94
[2024-04-06] MEDS: IPRATROPIUM 0.5 MG/ALBUTEROL SULFATE 2.5 MG AMPUL.NEB 3 ML INHALATION ×3 (02:15→13:51)
[2024-04-06] MEDS: methylPREDNISolone SOD SUCC 125 MG VIAL 60 MG IV PUSH (05:31)
[2024-04-06] MEDS: FLUTICASONE/SALMETEROL 45-21 MCG INHALER 1 PUFF 2 PUFF INHALATION (07:35)
[2024-04-06] MEDS: LOSARTAN POTASSIUM 25 MG TABLET PO (09:13)
[2024-04-06] MEDS: EMTRICITABINE-TENOFOVIR 100 MG-150 MG TABLET 2 TAB PO (09:13)
--- NOTE | 2024-04-06 11:52 | PM.DS ---
DS: Admitting Diagnosis Discharge Date 04/06/2024 Admitting Diagnosis Shortness of breath DS: Discharge Diagnosis Discharge Diagnosis (1) Hypoxic respiratory failure: Code(s): J96.91 - Respiratory failure, unspecified with hypoxia Status: Acute DS: Summary Hospital Course Reason for hospitalization: shortness of breath Hospital Course: Chief Complaint: shortness of breath [id number]: This is a 64-year-old female with emphysema, chronic hypoxic respiratory failure on 2 L nasal cannula as needed and at nighttime, and he may on immunodeficiency virus who presented to the emergency department via EMS from home for evaluation of shortness of breath. The patient provides the following history. She endorses an increase in cough over the past month or so with increased mucus production more recently. She is becoming increasingly short of breath and she reports having fever and chills. Regarding her HIV status, she reports that she takes antivirals but does not follow with and infectious disease specialists and believes her medications has . She does not know her last CD4 count. In the ED: SpO2 has been as low as 88% on her typical 2 L. she was afebrile on arrival. Blood pressures have been stable. Labs are significant for a WBC count of 14.0 sodium 133, chloride 96, carbon dioxide 32, BUN 0.40, procalcitonin 0.1. Respiratory panel was negative. Chest x-ray showed emphysema with findings suggestive of chronic bronchitis however superimposed mild pulmonary edema or early pneumonia not excludable. She received an hour long DuoNeb treatment, dexamethasone, magnesium, azithromycin, and ceftriaxone and she is being admitted in this setting for further treatment. Interval history 04/05/2023: patient with history of severe COPD stats has been doing well until last few days developed cough, shortness of breathe and wheezing, patient was treated with steroids, bronchodilators in ER stats feeling little better now, will continue steroids and bronchodilators and monitor. Today patient symptoms have improved and stats able to breath on RA, and does not have any shortness of breath, patient is clinically stable, will discharge patient on tapering dose of steroids, bronchodilators and antibiotics, patient to follow up with primary care provider as soon as possible. Time Spent with Patient Time attestation: Total time spent providing and/or coordinating discharge services: DS: Data Data Completed and Pending Labs on day of discharge: Preliminary micro results at discharge 04/04/24 12:14 Blood Culture - Preliminary Blood 04/04/24 12:14 Blood Culture - Preliminary Blood Discharge Plan Discharge Attending physician on discharge: Shirley Sargent Discharging Clinician: Shirley Sargent Patient Disposition: Home, Self-Care Activity: as tolerated Diet: heart healthy Discharge Instructions: Patient to follow up with her primary care provider, her manager requirements and her Infectious disease doctor as soon as possible, patient is instructed if any symptoms redevelop to go to nearest ER. Patient Instructions: Antibiotic Form Stand Alone Forms: General Discharge Information Follow-up/Referrals: Jackie,KIMBERLI Naqvi [Primary Care Provider] - Discharge Medications: New Chloraseptic Sore Throat 6-10 mg Lozenge 1 gloria PO PER PKG DIR PRN (Reason: Cough) Qty: 30 0RF levofloxacin 500 mg tablet 500 mg PO DAILY 5 Days Qty: 5 0RF prednisone 10 mg tablet 10 mg PO DIRECTED Qty: 62 0RF Rx Instructions: 6Tx3d, 5Tx3d, 4Tx3d, 3Tx3d, 2Tx3d, 1Tx3d ipratropium-albuterol 0.5 mg-3 mg(2.5 mg base)/3 mL solution for nebulization 3 ml inhalation Q6H PRN (Reason: shortness of breath or wheezing) Qty: 90 0RF Continued ritonavir 100 mg Capsule 100 mg PO DAILY budesonide-formoterol [Symbicort] 80-4.5 mcg/actuation Hfa Aerosol Inhaler 2 puff INHALATION BID darunavir [Maximus
[2024-04-06] MEDS: AZITHROMYCIN 500 MG/NS 250 ML 500 MG/250 ML BAG 250 MG IVPB (12:37)
[2024-04-08 04:38] LABS: Absolute CD4 Count 176 cells/uL (490-1740); Lymphocytes, Absolute 763 cells/uL (850-3900); Percent CD4 Cells 23 % (30-61)
[2024-04-10 12:14] LABS: HIV DNA PCR (Qual) Detected (Not Detected)
== END 2024-04-06 14:40 | disposition home or self-care (01) ==
LOC: ANHED 10:51 → ANH3MEDSUR 12:52
PROVIDERS: Admitting Provider Internal Medicine; Emergency Provider Emergency Medicine; PCP Physician Assistant; Visit Provider Internal Medicine
DX: J18.9 Pneumonia, unspecified organism (principal); J96.11 Chronic respiratory failure with hypoxia; J43.9 Emphysema, unspecified; Z99.81 Dependence on supplemental oxygen; Z21 Asymptomatic human immunodeficiency virus [HIV] infection status; Z87.891 Personal history of nicotine dependence; Z79.51 Long term (current) use of inhaled steroids; Z79.899 Other long term (current) drug therapy; Z20.822 Contact with and (suspected) exposure to COVID-19
CPT/HCPCS: 36415; 36600; 71046; 80053; 82805; 83615; 84145; 85025; 86361; 87040; 87535; 87637; 93005; 94640; 96365; 96367; 96374; 96375; 96376; 99285; A9270; G0378; J0456; J0696; J1100; J2919; J3475

== ENCOUNTER 2024-06-21 09:02 | Outpatient (CLI) | payer OTHER, SELFPAY ==
--- NOTE | 2024-06-22 08:43 | WPDPFTINT ---
PFT Procedure Performed PFT Procedure Performed Plethysmography (Lung Vol) Diffusing Cap (DLCO) Flow Vol Loop Spirometry w/o Bronchodil PFT Interpretation Lung volumes were measured using the body plethysmography method. The elevated FRC and RV indicate air trapping. The elevated total lung capacity indicates lung hyperinflation. Spirometry revealed diminished expiratory flow rates and a reduced FEV1 to FVC ratio of 39%, consistent with severe obstructive airway disease. No post-bronchodilator study was conducted. Lung diffusion capacity is severely reduced at 29% of predicted. The flow-volume loop is consistent with severe emphysema. Compared to the previous study in 2021, the FEV1 and FVC are lower by approximately 0.35 L and 0.8 L, respectively. Lung diffusion capacity is similarly reduced to 29% of predicted from a previous measurement of 43% of predicted. Impression: Very severe obstructive airway disease with lung hyperinflation, air trapping, and severely reduced lung diffusion capacity.
== END 2024-06-21 09:03 | disposition home or self-care (01) ==
PROVIDERS: PCP Physician Assistant
DX: R05.3 Chronic cough (principal); R94.2 Abnormal results of pulmonary function studies
CPT/HCPCS: 94375; 94726; 94729

== ENCOUNTER 2025-03-14 12:54 | Outpatient (CLI) | payer OTHER, SELFPAY ==
[2025-03-14 13:00] VITALS: PULSE 98; O2SAT 92
[2025-03-14 13:05] VITALS: PULSE 101; O2SAT 86
[2025-03-14 13:10] VITALS: PULSE 103; O2SAT 88
[2025-03-14 13:15] VITALS: PULSE 106; O2SAT 90
[2025-03-14 13:35] VITALS: PULSE 99; O2SAT 92
--- NOTE | 2025-03-14 13:54 | HOMEO2EVAL ---
Evaluation was performed at [facility] Home Oxygen Evaluation RC: Home Oxygen (O2) Evaluation Start: 03/14/25 13:49 Freq: Status: Active Protocol: RPE Activity Type Activity Date Activity User E-sign Co-sign Detail Recorded Client Recorded Date Recorded By Document 03/14/25 13:00 PK [email or web address] 03/14/25 13:53 PK Document 03/14/25 13:05 PK [email or web address] 03/14/25 13:53 PK Document 03/14/25 13:10 PK [email or web address] 03/14/25 13:53 PK Document 03/14/25 13:15 PK [email or web address] 03/14/25 13:53 [facility] Document 03/14/25 13:35 PK [email or web address] 03/14/25 13:53 [facility] 03/14/25 03/14/25 03/14/25 13:00 13:05 13:10 Home O2 Evaluation [Oxygen] -Test Phase Resting Exercise Exercise -Oxygen Delivery Room Air Room Air Nasal Cannula -Oxygen Flow Rate (L/min) 1 [Pulse Oximetry] -Pulse Oximetry (90-100 %) 92 86 L 88 L [Pulse Rate] -Pulse Rate (60-100 beats/min) 98 101 H 103 H [Exercise] -Ambulation Distance (feet) -Ambulation Distance (meters) [Comments] -Home Oxygen Evaluation Comments [Charges] -Evaluation Charges O2 Evaluation by Pulmonary 03/14/25 03/14/25 13:15 13:35 Home O2 Evaluation [Oxygen] -Test Phase Exercise Resting -Oxygen Delivery Nasal Cannula Room Air -Oxygen Flow Rate (L/min) 2 [Pulse Oximetry] -Pulse Oximetry (90-100 %) 90 92 [Pulse Rate] -Pulse Rate (60-100 beats/min) 106 H 99 [Exercise] -Ambulation Distance (feet) 200 -Ambulation Distance (meters) 60.95 [Comments] -Home Oxygen Evaluation Comments Patient has NOC home O2. [Charges] -Evaluation Charges
--- OUTSIDE RECORDS SUMMARY | 2025-03-14 14:54 | XMS_ITS | Data Portability ---
Author Organization [facility] Pardo Address [address] [place] [address] Care Team Providers Care Insurance Marketing Rep Name Role Phone DONYA JOHNSON Primary Care Provider Assessment Encounter Date Assessment Date Assessment LastModified by Organization Details LastModified Time 03/14/2025 03/14/2025 65-year-old white female with chronic HIV disease, who has been out of care, she has recent oral candidiasis which is an AIDS defining illness. I will obtain her records, labs and restart oral therapy once they are reviewed. HIV risk counseling was done, she states that she is but she is not sexually active. oajao Not available 03/14/2025 14:08:01 Plan of Treatment Reminders Order Date Submit Date Provider Last Modified By Organization Details Last Modified Time Details Appointments NEW PATIENT 2024 09:30A Bay Go MD Not available Not available Not available ANY 15 2024 03:30P KIMBERLI PINA Not available Not available Not available ANY 30 2024 01:30P Bay Go MD Not available Not available Not available ANY 2024 02:15P Bay Salas MD Not available Not available Not available Lab cd4 T-cells, blood 2024 025 [facility], [address], [address] [address], [place], [address], 03/14/2025 11:05:54 Hepatiti s C IgG Ab, qual, serum 2024 025 ROSALVAJOSIAS [facility], [address], [address], [place], [address], 03/14/2025 11:05:52 chlamydi a trachoma tis + neisseri a gonorrho eae + trichomo maverick vaginali s rRNA panel, JOSH+prob e 2024 025 ROSALVA Ramirez, [address], [address], [place], [address], 03/14/2025 11:05:51 RPR (rapid plasma reagin), serum 2024 025 ROSALVA Ramirez, [address], [address], [place], [address], 03/14/2025 11:05:54 HIV-1 RNA, quantita tive, PCR, serum or plasma 2024 025 ROSALVA aRmirez, [address], [address], [place], [address], 03/14/2025 11:05:53 CMP, serum or plasma 2024 025 ROSALVA Ramirez, [address], [address], [place], [address], 03/14/2025 11:05:52 CBC w/ auto diff 2024 025 ROSALVA Ramirez, [address], [address], [place], [address], 03/14/2025 11:05:54 Mycobact erium tubercul osis stimulat ed gamma interfer on, qual, blood 2024 025 ROSALVA Ramirez, [address], [address], [place], [address], 03/14/2025 11:05:53 hepatiti s B surface Ab, quantita tive, serum 2024 025 ROSALVA Ramirez, [address], [address], [place], [address], 03/14/2025 11:05:51 lipid panel, serum 2024 025 ROSALVAJOSIAS Ramirez, [address], [address], [place], [address], 03/14/2025 11:05:53 HIV 1 + 2, meaningf ul use set 2024 025 ROSALVAJOSIAS Aliciam[facility]alli, [address], [address], [place], [address], 03/14/2025 11:05:52 HIV 1 RNA reverse transcri ptase and protease and integras e gene mutation s detected , sequenci ng, plasma 2024 025 [place] [facility], [address], [address], [place], [address], 03/14/2025 11:26:47 noninvas felicita colorect al cancer DNA + occult blood screenin g, QL, stool 2023 024 [place] [facility] (Cologuard Orders Only), [address], [address], [place], [address], 06/06/2024 10:43:24 CMP, serum or plasma 2023 024 [facility], [address], [address], [place], [address], 03/30/2024 17:16:23 lipid panel, serum 2023 024 [facility] [address], [address], [place], [address], 03/30/2024 17:16:23 CBC w/ auto diff 2023 024 [facility], [address], [address], [place], [address], 04/10/2024 17:05:05 TSH + free T4, serum 2023 024 [place] [facility], [address], [address], [place], [address], 03/30/2024 17:16:24 HbA1c (hemoglo bin A1c), blood 2023 024 [place] [facility], [address], [address], [place], [address], 03/30/2024 17:16:24 Referral ophthalm ologist referral 2024 025 [facility], [address] , [place], [address], 03/14/2025 11:13:01 infect[address] us disease speciali st referral 2023 024 [email or web address] Cinda Go MD, [address] [place] [address], [address], 04/19/2024 07:53:26 Procedures None recorded . Surgeries None recorded . Imaging MAMMO, screenin g, digital, bilatera l 2024 025 [facility], [facility] [address], [place], [address], 03/14/2025 11:12:27 PFT, complete 2023 024 [facility] (Cardiology & Emg), [facility] [address], [place], [address], 07/03/2024 15:47:41 LDCT, chest, for lung cancer screenin g 2023 024 [facility] (Rad), [address] , [place], [address], 03/17/2024 12:21:27 PFT, complete [email or web address] [place] [address] (Cardio Ekg), [address] [place], [address], 05/17/2024 14:03:00 Medication Orders ipratrop ium 0.5 mg-albut ambrocio 3 mg (2.5 mg base)/3 mL nebuliza tion soln 2023 024 [facility]/Pharmacy #[id number], [address], [place], [address], 06/14/2024 14:14:33 predniso ne 10 mg tablet 2023 024 [facility]/Pharmacy #[id number], [address], [place], [address], 06/14/2024 14:14:35 Patient TargetsNo targets recorded. Patient Instructions Encounter Date Encounter Id Patient Instructions Last Modified By Organization Details Last Modified Time 03/30/2024 [id number] eating healthy foods: care instructions kbarbero Not available 03/30/2024 17:16:15 02/21/2025 [id number] 6 minute walk test* [email or web address] Not avai lable 02/21/2025 16:51:08 03/14/2025 [id number] mammogram: about this test oajao Not available 03/14/2025 11:07:09 acquired immunodeficiency syndrome (AIDS): care instructions oajao Not available 03/14/2025 11:01:02 Most recent HIV labs from [facility] Records [facility] Ophthal[facility] Follow up in 6 weeks oajao Not available 03/14/2025 11:09:02 HIV risk behavioral health counselor ing was done oajao Not available 03/14/2025 14:08:59 Reason for Referral Infectious Disease Specialis t Referral for Human immunodeficiency virus infection Referring Physician: Donya Johnson, Family Medicine, Encounter Date: 03/30/2024 Inker Referral for Blurring of visual image Blurred vision, L. eye. Hx of cataracts and HIV disease Referring Physician: Cinda Go, Internal Medicine, Encounter Date: 03/14/2025 Results Created Date Observation Date Name Description Value Unit Range Abnormal Flag Note LastModifiedBy Organization Detail LastModifiedTime 05/30/20 24 05/30/2024 COLOG UARD cologuard result reportable NEGATI VE negati ve normal NEGAT FELICITA TEST RESUL T. A negat felicita Colog uard resul t indic ates a low likel ihood that a color ectal cance r (CRC) or advan moon adeno ma (wicho omato us polyp s with more advan moon pre-m align ant featu res) is prese nt. The chanc e that a perso n with a negat felicita Colog uard test has a color ectal cance r is less than 1 in 1500 (nega tive predi ctive value >99.9 %) or has an advan moon adeno ma is less than 5.3% (nega tive predi ctive value 94.7% ). These data are based on a prosp ectiv e cross -sect ional study of 10,00 0 indiv idual s at [facility] risk for color ectal cance r who were scree stacy with both Colog uard and colon oscop y. (Lanette Vincent. et al, N Engl J Med 2014; 370(1 4):12 86-12 97) The lisa l value (refe rence range ) for this assay is negat felicita. COLOG UARD RE-SC REENI NG RECOM MENDA TION: Perio dic color ectal cance r scree rosa m is an impor tant part of preve ntive healt hcare for asymp tomat ic indiv idual s at cuero ge risk for color ectal cance r. Follo wing a negat felicita Colog uard resul t, the Ameri can Cance r Socie ty and U.S. Multi -Soci ety Task Force scree rosa m guide lines recom mend a Colog uard re-sc reeni ng inter maricarmen of 3 years . Refer ences : Ameri can Cance r Socie ty Guide line for Color ectal Cance r Scree rosa m: https ://makayla w.can cer.o rg/ca ncer/ colon -rect al-ca ncer/ detec tion- diagn osis- stagi ng/ac s-rec ommen datio ns.ht ml.; Lino DK, Amber d CR, Noni loza JK, Color ectal Cance r Scree rosa m: Recom menda tions for Physi cians and Patie nts from the U.S. Multi -Soci ety Task Force on Color ectal Cance r Scree rosa m , Mar haines rolog y 2017; 112:1 016-1 030. TEST DESCR IPTIO N: [place] site algor ithmi c ezequiel sis of stool DNA-b iocooper kers with hemog lobin immun oassa y. Quant itati ve value s of indiv idual bioma rkers are not repor table and are not assoc iated with [facility] idual bioma rker resul t refer ence range s. Colog uard is inten ded for color ectal cance r scree rosa m of adult s of eithe r sex, 45 years or older , who are at [facility] for color ectal cance r (CRC) . Colog uard has been appro liss for use by the U.S. FDA. The perfo rmanc e of Colog uard was estab lishe d in a cross secti onal study of [facility] adult s aged 50-84 . Colog uard perfo rmanc e in patie nts ages 45 to 49 years was estim ated by sub-g roup ezequiel sis of near- age group s. Colon oscop ies perfo rmed for a posit felicita resul t may find as the most clini maye signi sharifa vincent lesio n: color ectal cance r [4.0% ], advan moon adeno ma (incl uding sessi le chay harry polyp s great er than or equal to 1cm diame ter) [20%] or non- advan moon adeno ma [31%] ; or no color ectal neopl karla [45%] . These estim ates are deriv ed from a prosp ectiv e cross -sect ional scree rosa m study of 10,00 0 indiv idual s at [facility] risk for color ectal cance r who were scree stacy with both Colog uard and colon oscop y. (Lanette Lambert et al, N Engl J Med 2014; 370(1 4):12 86-12 97.) Colog uard may produ ce a false negat felicita or false posit felicita resul t (no color ectal cance r or preca ncero us polyp prese nt at colon oscop y follo w up). A negat felicita Colog uard test resul t does not guara ntee the absen ce of CRC or advan moon adeno ma (pre- cance r). The curre nt Colog uard scree rosa m inter maricarmen is every 3 years . (Amer ican Cance r Socie ty and U.S. Multi -Soci ety Task Force ). Colog uard perfo rmanc e data in a ,00 0 patie nt pivot al study using colon oscop y as the refer ence metho d can be acces sed at the follo wing locat ion: www.e xactl abs.c om/re sulesthela . Addit ional descr iptio n of the Colog uard test proce ss, warni ngs and preca ution s can be found at www.c ologu gianna.c om. Not Available [facility] (Cologuard Orders Only) [address], [place], [address], 06/06/2024 10:43:24 03/02/20 24 03/01/2024 MRI, liver , w/wo contr ast No observ ation record ed. [email or web address], [address], 03/08/2024 12:15:26 04/04/20 24 04/04/2024 XR, chest , 2 view No observ ation record ed. [address], [address], 04/05/2024 10:43:28 07/03/20 24 06/21/2024 PFT, compl ete No observ ation record ed. [facility] (Cardiology & Emg) [address] [place] [address], [address], 07/03/2024 15:47:41 Result Notes None recorded. Problems Name Problem SNOMED Code Status Onset Date Resolution Date Notes Provider Name and Address Organization Details Recorded Time Chronic obstructiv e pulmonary disease 40793379 Active 2021 KIMBERLI SALDANA Attn: Narendra nixon,[address], [place], [address], [place] [facility] 2 11:05:32 Human immunodefi ciency virus infection 05630491 Active 2021 Cinda Go MD Attn: Accountin g,[address] [facility], [place], [address], [place] [facility] 5 11:28:54 Cavernous hemangioma of brain 629809631 Active 2021 KIMBERLI SALDANA Attn: Accountdutch nixon,[address] [facility], [place], [address], [place] [facility] 2 11:48:59 Tobacco dependence in remission 553949337 Active 2021 quit 01/2022 KIMBERLI SALDANA Attn: Accountdutch nixon,[address] [facility], [place], [address], [place] [facility] 2 11:49:16 Prediabete s 910860879 Active 2021 a1c 6.4 KIMBERLI SALDANA Attn: Accountdutch g,[address] [facility], [place], [address], [place] [facility] 2 11:15:00 Liver mass 298058058 Active 2023 MRI nl KIMBERLI SALDANA Attn: Accountdutch g,[address] [facility], [place], [address], [place] [facility] 4 09:17:42 Pulmonary emphysema 27863788 Active 2023 KIMBERLI SALDANA Attn: Accountdutch g,[address] [facility], [place], [address], [place] [facility] 4 09:25:28 Screening for malignant neoplasm of colon Active 2023 cologuard negative 06/2024, repeat 2026 KIMBERLI SALDANA Attn: Narendra nixon,[address] [facility], [place], [address], [facility] 4 10:56:13 Problem Notes None recorded. Procedures Surgical History Date Name Laterality Status Provider Name and Address Organization Details Recorded Time Partial hysterectomy completed Danni Chowdary MA [facility] 03/20/2022 11:01:10 tonsilectomy/wicho oids completed Danni Chowdary MA [facility] 03/20/2022 11:01:18 Imaging Results None recorded. Procedure Notes None recorded. Medical Equipment None Reported. Allergies Allergen ID Allergen Name Allergen Category Reaction Reaction Severity Criticality Documentation Date Start Date Code Code System Note Provider Name and Address Organization Details Recorded Time 101449 Demerol medicatio n Not available Not available Not available 03/20/2022 59498 1 RxNorm Danni Chowdary MA null, [place] - [facility] 2 10:55:01 Medications Name Sig Start Date Stop Date Status Note LastModified by Organization Details LastModified Time Prescriptio n - Renewal 05/20 completed Not Available Not Available Not Available Prescriptio n - New 05/20 completed Not Available Not Available Not Available Prescriptio n - Prior Authorizati on Request 05/20 completed Not Available Not Available Not Available nystatin 100,000 unit/mL oral suspension SHAKE WELL, TAKE 5 MLS BY MOUTH 4 TIMES A DAY NEEDED FOR 7 DAYS, FOR THRUSH. 03/14 completed Not Available Not Available Not Available prednisone 10 mg tablet TAKE 1 TABLET BY MOUTH EVERY DAY active Not Available Not Available No t Available naproxen 375 mg tablet TAKE 1 TABLET BY MOUTH TWICE A DAY 10/21 completed Not Available Not Available Not Available ipratropium 0.5 mg-albutero l 3 mg (2.5 mg base)/3 mL nebulizatio n soln INHALE THE CONTENTS OF 1 VIAL EVERY 4 TO 6 HOURS PER NEBULIZER NEEDED active Not Available Not Available No t Available prednisolon e sodium phosphate 15 mg/5 mL (3 mg/mL) oral solution TAKE 5 ML BY MOUTH 3 TIMES A DAY WITH MEALS FOR 7 DAYS. 05/20 completed Not Available Not Available Not Available azithromyci n 250 mg tablet TAKE 2 TABLETS BY MOUTH TODAY, THEN TAKE 1 TABLET DAILY FOR 4 DAYS 12/08 completed Not Available Not Available Not Available prednisone 20 mg tablet TAKE 1 TABLET BY MOUTH EVERY DAY FOR 7 DAYS 10/12 completed Not Available Not Available Not Available losartan 25 mg tablet TAKE 1 TABLET BY MOUTH EVERY DAY IN THE MORNING active Not Available Not Available No t Available prednisolon e 15 mg/5 mL oral solution Take 5 mL 3 times a day by oral route with meals for 5 days. 02/16 completed Not Available Not Available Not Available cefuroxime axetil 500 mg tablet TAKE 1 TABLET BY MOUTH TWICE A DAY FOR 14 DAYS 03/20 completed Not Available Not Available Not Available levofloxaci n 500 mg tablet TAKE 1 TABLET BY MOUTH DAILY X 5 DAYS 03/14 completed Not Available Not Available Not Available methylpredn isolone 4 mg tablets in a dose pack TAKE 6 TABLETS ON DAY 1 DIRECTED ON PACKAGE AND DECREASE BY 1 TAB EACH DAY FOR A TOTAL OF 6 DAYS 03/14 completed Not Available Not Available Not Available albuterol sulfate HFA 90 mcg/actuati on aerosol inhaler INHALE 1 PUFF FOUR TIMES DAILY NEEDED FOR SHORTNESS OF BREATH OR WHEEZING active Not Available Not Available No t Available amoxicillin 875 mg-potassiu m clavulanate 125 mg tablet TAKE 1 TABLET BY MOUTH EVERY 12 HOURS WITH MEALS FOR 7 DAYS 02/02 completed Not Available Not Available Not Available Spiriva with HandiHaler 18 mcg and inhalation capsules active Not Available Not Available Not Available emtricitabi ne 200 mg-tenofovi r disoproxil fumarate 300 mg tablet TAKE 1 TABLET BY MOUTH EVERY DAY 02/16 completed Not Available Not Available Not Available Truvada 03/20 completed Not Available Not Available Not Available Symbicort 160 mcg-4.5 mcg/actuati on HFA aerosol inhaler INHALE 2 PUFFS INTO THE LUNGS TWICE A DAY active Not Available Not Available No t Available ritonavir 100 mg tablet TAKE 1 TABLET BY MOUTH EVERY DAY 02/16 completed Not Available Not Available Not Available Mucus Relief ER 600 mg tablet, extended release TAKE 1 TABLET BY MOUTH EVERY 12 HOURS FOR 7 DAYS 02/16 completed Not Available Not Available Not Available Prezista 800 mg tablet TAKE 1 TABLET BY MOUTH EVERY DAY 03/14 completed Not Available Not Available Not Available Spiriva Respimat 2.5 mcg/actuati on solution for inhalation INHALE 2 PUFFS INTO LUNGS EVERY DAY X30 DAYS active Not Available Not Available No t Available Incruse Ellipta 62.5 mcg/actuati on powder for inhalation INHALE 1 PUFF INTO THE LUNGS EVERY DAY FOR 30 DAYS 04/22 completed Not Available Not Available Not Available Stiolto Respimat 2.5 mcg-2.5 mcg/actuati on solution for inhalation INHALE 2 PUFFS EVERY DAY BY INHALATIO N ROUTE DIRECTED FOR 30 DAYS. 06/25 completed Not Available Not Available Not Available Spiriva Respimat 1.25 mcg/actuati on solution for inhalation INHALE 2 PUFFS EVERY DAY BY INHALATIO N ROUTE FOR 30 DAYS. 04/22 completed Not Available Not Available Not Available Breztri Aerosphere 160 mcg-9mcg-4. 8mcg/actuat ion HFA aerosol inhaler Inhale by inhalatio n route for 30 days. 05/20 completed Not Available Not Available Not Available Vitals Date Recorded Body height Body mass index (BMI) Body weight Body temperature Respiratory rate Oxygen saturation Oxygen saturation in Arterial blood by Pulse oximetry Heart rate Systolic blood pressure Diastolic blood pressure Provider Name and Address Organization Details Last Updated DateTime 5 160.02 cm 16.7 kg/m2 27357.6 8 g 96.6 [degF] 22 /min 96 % 96 % 96 /min 162 mm[Hg] 86 mm[Hg] Renate Fraser LPN [place] - [facility] 5 15:31:05 Date Recorded Body height Body mass index (BMI) Body weight Heart rate Oxygen saturation Oxygen saturation in Arterial blood by Pulse oximetry Respiratory rate Body temperature Systolic blood pressure Diastolic blood pressure Provider Name and Address Organization Details Last Updated DateTime 5 160.02 cm 16.5 kg/m2 48412.0 9 g 86 /min 90 % 90 % 18 /min 97.5 [degF] 130 mm[Hg] 80 mm[Hg] Vaishali [place] YorkDAV[place] dior [facility] 5 10:44:49 Date Recorded Body height Body mass index (BMI) Body weight Body temperature Respiratory rate Oxygen saturation Oxygen saturation in Arterial blood by Pulse oximetry Heart rate Systolic blood pressure Diastolic blood pressure Provider Name and Address Organization Details Last Updated DateTime 4 160.02 cm 15.8 kg/m2 31769.7 2 g 97.5 [degF] 18 /min 94 % 94 % 86 /min 142 mm[Hg] 82 mm[Hg] Renate Fraser LPN [facility] 4 11:35:24 Date Recorded Body height Body mass index (BMI) Body weight Oxygen saturation Oxygen saturation in Arterial blood by Pulse oximetry Heart rate Respiratory rate Systolic blood pressure Diastolic blood pressure Provider Name and Address Organization Details Last Updated DateTime 4 160.02 cm 16.2 kg/m2 96559.3 1 g 94 % 94 % 78 /min 18 /min 138 mm[Hg] 87 mm[Hg] Poppy Cazares MA [facility] 4 16:52:10 Date Recorded Body height Heart rate Oxygen saturation Oxygen saturation in Arterial blood by Pulse oximetry Respiratory rate Body temperature Body mass index (BMI) Body weight Systolic blood pressure Diastolic blood pressure Provider Name and Address Organization Details Last Updated DateTime 4 160.02 cm 96 /min 90 % 90 % 18 /min 97.5 [degF] 16.5 kg/m2 46703.0 9 g 106 mm[Hg] 70 mm[Hg] Renate Fraser LPN [facility] 4 14:01:32 Social History Question Answer Notes LastModified by Organizat ion Details LastModified Time Tobacco Smoking Status Former Smoker Quit smoking in 10/[address] [facility] 06/25/2022 10:53:32 Do You Have An Advance Directive? No Information not available 06/25/2022 Are You Blind Or Do You Have Difficulty Seeing? No Information not available 03/20/2022 What Is Your Level Of Caffeine Consumption? Occasional Information not available 03/20/2022 In The 14 Days Before Symptom Onset, Have You Had Close Contact With A Laboratory-confi rmed COVID-19 While That Case Was Ill? No Information not available 03/20/2022 In The 14 Days Before Symptom Onset, Have You Had Close Contact With A Person Who Is Under Investigation For COVID-19 While That Person Was Ill? No Information not available 03/20/2022 Have You Been To An Area Known To Be High Risk For COVID-19? No Information not available 03/20/2022 Are You Deaf Or Do You Have Serious Difficulty Hearing? No Information not available 03/20/2022 What Type Of Diet Are You Following? REGULAR Information not available 03/20/2022 Are There Any Guns Present In Your Home? No Information not available 03/20/2022 HIV Dx By [facility] No Informatio n not available 03/14/2025 HIV Risk Counseling #1 03/14/2025 Information not available 03/14/2025 HIV QI Project No Information not available 03/14/2025 Dental Provider None Information not available 03/14/2025 Do You Feel Physically And Emotionally Safe In Your Neighborhood Or Other Public Places? Yes Information not available 03/14/2025 Current Gender Identity Female Information not available 03/14/2025 Risk Factor 1 Heterosexual Contact Information not available 03/14/2025 HIV Diagnosis Date 10/04/1999 Information not available 03/14/2025 Do You Have A Medical Power Of Bulk Mail Clerk? No [email or web address] Information not available 12/08/2022 What Was The Date Of Your Most Recent Tobacco Screening? 03/14/2025 [email or web address] Information not available 03/14/2025 What Is Your Current Pack Years? 30ormorepackyea rs Information not available 03/14/2025 What Is Your Relationship Status? Domestic Partner Information not available 03/20/2022 Do You Use Your Seat Belt Or Car Seat Routinely? Yes Information not available 03/20/2022 Do You Have Smoke And Carbon Monoxide Detectors In Your Home? Yes Information not available 03/20/2022 At What Age Did You Start Smoking Tobacco? 7 Information not available 06/25/2022 Are You Passively Exposed To Smoke? Yes Information not available 03/20/2022 How Much Tobacco Do You Smoke? No Information not available 03/14/2025 Do You Use Sunscreen Routinely? Yes Information not available 03/20/2022 Has Tobacco Cessation Counseling Been Provided? Yes Information not available 03/14/2025 On What Date Was Tobacco Cessation Counseling Provided? 03/14/2025 Information not available 03/14/2025 How Many Years Have You Smoked Tobacco? 55 Information not available 06/25/2022 Sex: Female Functional Status Question Answer Note LastModified by Organizat ion Details LastModified Time Do you use any illicit or recreational drugs? No Information not available 03/20/2022 Do you or have you ever used any other forms of tobacco or nicotine? No Information not available 03/20/2022 What is your level of alcohol consumption? None Information not available 03/20/2022 Are you currently employed? No Information not available 03/20/2022 Are you able to care for yourself? Yes Information n ot available 03/20/2022 What is your exercise level? Moderate Information not available 03/20/2022 Mental Status Question Answer Note LastModified by Organization D etails LastModified Time Do you feel stressed (tense, restless, nervous, or anxious, or unable to sleep at night)? [id number] Information not available 03/20/2022 Family History Relationship Description Onset Age of this Age Resolved Age Notes LastModified by Organization Details LastModified Time Mother Malignant neoplasm of lung [email or web address] Not available 2021 10:48:48 Notes:Mother had Lung Cancer Medical History Condition Response Coronary Artery Disease N Other Y Atrial Fibrillation N High Blood Pressure Y Depression N COPD Y Blood Clots N Anxiety Disorder N Muscle, Joint, or Bone Problems N Acid Reflux (GERD) N Cancer N Stroke N ADHD N High Cholesterol N Liver Disease N Schizophrenia N Headaches N Thyroid Problems N Kidney or Bladder Problems N GI Problems N Eating Disorder N Skin Problems N Anemia N Heart Attack (AL) N Diabetes N Seizures/Epilepsy N Asthma N Allergies N Substance Abuse N Hepatitis N Heart Failure N Osteoporosis N Gynecological History Statement/Question Response Current Control Method Hysterectom y Obstetrics History GPAL:G 2 P 2 0 0 2 Type Value Full Term 2 Living 2 Total 2 Immunizations Vaccine Type Date Status Note Provider Nam e and Address Organization Details Recorded Time COVID-19, mRNA, LNP-S, PF, 30 mcg/0.3 mL dose 2 completed Mimi Edouard RMA [place], [place] [facility] 04/14/2024 12:17:23 COVID-19, mRNA, LNP-S, PF, 30 mcg/0.3 mL dose 1 completed Mimi Edouard R[place] [facility] 04/14/2024 12:17:23 COVID-19, mRNA, LNP-S, PF, 30 mcg/0.3 mL dose 1 completed Mimi Edouard R[place] [facility] 04/14/2024 12:17:23 zoster recombinant 8 completed Mimi Edouard R[place] [facility] 04/14/2024 12:17:22 zoster recombinant 8 completed HEATHER DuncanA [place] [facility] 04/14/2024 12:17:22 COVID-19, mRNA, LNP-S, PF, 30 mcg/0.3 mL dose 1 completed Mimi Edouard RMA [place] [facility] 04/14/2024 12:17:23 Pneumococcal conjugate PCV20, polysaccharide [id number] conjugate, adjuvant, PF 2 completed Mimi Edouard RMA [place] [facility] 04/14/2024 12:17:23 pneumococcal polysaccharide PPV23 9 completed HEATHER DuncanA [place] [facility] 04/14/2024 12:17:23 Tdap 5 completed Vaishali Clifford [place], [place] [facility] 03/14/2025 13:55:16 Past Encounters Encounter ID Performer Location Encounter Start Date Encounter Closed Date Diagnosis/Indication Diagnosis SNOMED-CT Code Diagnosis ICD10 Code Diagnosis Note [id number] Nitin gracia MD [facility] [address] [place] [address] 03/20/2022 10:38:00 03/24/2022 09:14:28 Chronic obstructive pulmonary disease 81152815 J44.9 quit smoking 2 months ago1/2 ppd since age 7not controlled with symbicortu sing neb every 6 hours and albuterol inhaler dailyc/o productive cough and SOBPEx- nl, lungs CTABtrial LAMAPFTsLD CTrefer to pulm Human immunodeficiency virus infection 59039386 B20 diagnosed 20 yrs ago, states her levels are undetecta bleon truvada, prezista, and ritonavirp t of Dr. 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- half of her body went numb due to brain bleedingha s not seen neurology in years, unknown last imaging studyrefer to neuro to establish [id number] Nitin gracia MD [facility] [address] [place] [address] 04/21/2022 15:26:41 04/22/2022 12:53:49 Chronic obstructive pulmonary disease 10748722 J44.9 04/21/22:c/ o worsening cough with incruse powder, difficulty swallowing up all night coughingus ing neb and albuterol TIDPFTs were scheduled this AM, but was advised to re-schedul e due to persistent coughO2 93%PEx- mild rhonchi to bilateral lower lobessched uled appt archsandeep w/ Marielena Moreno [employer] on 04/30/22 @ 9:45 AMtrial spiriva w/o powder, LAMAsteroi d 20mg BID x7 days- CI with jose carlos mccormick trial oral prednisolo ne rec'd by pharmacy to have less interactio npneumonia vaccine done 03/05/22 03/20/22qui t smoking 2 months ago1/2 ppd since age 7not controlled with symbicortu sing neb every 6 hours and albuterol inhaler dailyc/o productive cough and SOBPEx- nl, lungs CTABtrial LAMAPFTsLD CTrefer to pulm Cavernous hemangioma of brain 744197397 D18.02 04/21/22:pr inted off referral and encouraged pt to call to schedule appt 03/20/22:19 95- half of her body went numb due to brain bleedingha s not seen neurology in years, unknown last imaging studyrefer to neuro to establish Human immunodeficiency virus infection 36132508 B20 04/21/22:pr inted off referral and encouraged pt to call to schedule appt 03/20/22:di agnosed 20 yrs ago, states her levels are undetecta bleon truvada, prezista, and ritonavirp t of Dr. Franco, moved to [facility] to establish with infectious disease provider Screening for malignant neoplasm of breast 282456304 Z12.39 due for mammo [id number] Bassam Salas MD [facility] [address] [place] [address] 06/25/2022 10:45:56 06/25/2022 14:00:18 Chronic obstructive pulmonary disease 47854113 J44.9 Stable on Symbicort 160 mcg as maintenanc eContinue MDI, albuterol as needed, duonebsPFT , 6 min walkWill check AATEchoove rnight oximetry on room air Human immunodeficiency virus infection 13125031 B20 Taking truvada, prezista, and ritonavir Body mass index less than 20 037082239 Z68.1 Nicotine d ependence in remission 422138717 F17.201 stopped smoking mok ing for 55 years, 1 ppd - 57 PYHWill order LDCT, lung cancer screening. Discussed risk/benef its, importance of annual screening adherence, and smoking cessation. [id number] Nitin gracia MD [facility] [address] [place] [address] 07/13/2022 10:05:38 07/14/2022 16:26:46 Chronic obstructive pulmonary disease 91832300 J44.9 07/13/22:e nico gracia today, see abovesaw Pulm 06/25/22:S table on Symbicort 160 mcg as maintenanc e, previously using Stiolto respimat but reports increased coughing and intoleranc e of mist, Continue MDI, albuterol as needed, duonebs, PFT, 6 min walk , Will check AAT (negative) , Echo, overnight oximetry on room air, LDCT scan 05/20/22:ap proved for stiolto respimatif pt does not tolerate will need send another PA before trial robbie appt with pulm 06/03/22 04/24/22: failed incruseins urance will not cover spiriva respimat and stiolto respimatpt cannot tolerate powder inhalation swill trial jw arnett, per pharmacy she will need PA 04/21/22:c/ o worsening cough with incruse powder, difficulty swallowing up all night coughingus ing neb and albuterol TIDPFTs were scheduled this AM, but was advised to re-schedul e due to persistent coughO2 93%PEx- mild rhonchi to bilateral lower lobessched uled appt francisco w/ Marielena Moreno [employer] on 04/30/22 @ 9:45 AMtrial spiriva w/o powder, LAMA, insurance will not coverstero id 20mg BID x7 days- CI with prezistawi ll trial oral prednisolo ne rec'd by pharmacy to have less interactio npneumonia vaccine done 03/05/22 03/20/22qui t smoking 2 months ago1/2 ppd since age 7not controlled with symbicortu sing neb every 6 hours and albuterol inhaler dailyc/o productive cough and SOBPEx- nl, lungs CTABtrial LAMAPFTsLD CTrefer to pulm Candidiasis of mouth 797 21693 B37.0 due to symbicorto ral nystatin mouth wash Elevated blood-pressure reading without diagnosis of hypertension 224872832 R03.0 150/80 t1vmeadh at [place], 150s/80sst art losartan 25advised to check BP at home, goal BP <130/80, f/u with BP log in 1 wk Acute exac erbation of chronic obstructive pulmonary disease 861239864 J44.1 c/o productive cough with sputum x3 wksno improvemen t with symbicort 160 mcgcough is worse at nighttakin g OTC robitussin and nyquil w/o reliefsput um was green, currently yellowdeni es fever, chills or SOBPEx- lungs CTABencour aged to use neb treatment more frequently if neededtria l prednisone and augmentina dvised pt if no improvemen t in 5 days, need to f/u with pulmcannot give PO steroid with prezista, changed to liquid form Pain in right arm 202778 [address] 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 I have recommende d referral to the elbow specialist at [place] as this is a very unusual and difficult case and I have no personal experience with this type of surgery.Ad dendum: Patient called on 07/03/2022 concerned that she would not be able to be seen until August at [place]. as it is possible that her exacerbati on of pain and new onset of pronounced popping catching may be due to conversion of a sessile osteo chondroma to a chondrosar coma which could be life or limb threatenin g, I will proceed with obtaining an MRI scan of her right elbow. She had mentioned that she had had a problem with gadolinium in the past accumulati ng in her body. We will order MRI without gadolinium . [id number] Bassam Salas MD [facility] [address] [place] [address] 12/08/2022 14:05:32 12/09/2022 11:30:12 Chronic obstructive pulmonary disease 08712255 J44.9 StableSymb icort 160 mcg as maintenanc eContinue MDI, albuterol as needed, duonebsmary rnight oximetry on room air Nicotine d ependence in remission 277015521 F17.201 stopped smoking mok ing for 55 years, 1 ppd - 57 PYHWill re-order LDCT, lung cancer screening ordered prior and approved, not completed. Discussed risk/benef its, importance of annual screening adherence, and smoking cessation. Human immunodeficiency virus infection 83224884 B20 Taking truvada, prezista, and ritonavir Body mass index less than 20 482328245 Z68.1 [id number] MARIELENA MORENO NP [address] [address] 02/16/2023 14:45:29 02/17/2023 07:19:09 Chronic obstructive pulmonary disease 50167120 J44.9 StableSymb icort 160 mcg and spiriva respimatCo ntinue MDI, albuterol as needed, duonebs Nicotine d ependence in remission 473296176 F17.201 stopped smoking mok ing for 55 years, 1 ppd - 57 PYH Will re-order LDCT, lung cancer screening ordered prior and approved, not completed. Discussed risk/benef its, importance of annual screening adherence, and smoking cessation. Human immunodeficiency virus infection 48193562 B20 Taking truvada, prezista, and ritonavir Body mass index less than 20 954798807 Z68.1 Dependence on nocturnal oxygen therapy 2472780799 9108 Z99.81 increase to 2L/min O2 with sleepWill repeat oximetry study on 2l/min [id number] KIMBERLI SALDANA [facility] [address] [place] [address] 10/21/2023 12:28:56 10/22/2023 13:00:02 Chronic obstructive pulmonary disease 54702735 J44.9 10/21/23: 08/2022- PFT and 6 Minute Walk with numbers- moderately severe obstructiv e airway disease with air trapping and no response to bronchodil ators, 6 minute walk test- no evidence of oxyhemoglo bin desaturati onVSS- O2 91%out of symbicortn eeds pulm referralf/ u in 1 mo for routine labs 07/13/22:e xacerbatio n today, see abovesaw Pulm 06/25/22:S table on Symbicort 160 mcg as maintenanc e, previously using Stiolto respimat but reports increased coughing and intoleranc e of mist, Continue MDI, albuterol as needed, duonebs, PFT, 6 min walk , Will check AAT (negative) , Echo, overnight oximetry on room air, LDCT scan 05/20/22:ap proved for stiolto respimatif pt does not tolerate will need send another PA before trial robbie appt with pulm 06/03/22 04/24/22: failed incruseins urance will not cover spiriva respimat and stiolto respimatpt cannot tolerate powder inhalation swill trial jw tri, per pharmacy she will need PA 04/21/22:c/ o worsening cough with incruse powder, difficulty swallowing up all night coughingus ing neb and albuterol TIDPFTs were scheduled this AM, but was advised to re-schedul e due to persistent coughO2 93%PEx- mild rhonchi to bilateral lower lobessched uled appt francisco w/ Marielena Moreno [employer] on 04/30/22 @ 9:45 AMtrial spiriva w/o powder, LAMA, insurance will not coverstero id 20mg BID x7 days- CI with prezistawi ll trial oral prednisolo ne rec'd by pharmacy to have less interactio npneumonia vaccine done 03/05/22 03/20/22qui t smoking 2 months ago1/2 ppd since age 7not controlled with symbicortu sing neb every 6 hours and albuterol inhaler dailyc/o productive cough and SOBPEx- nl, lungs CTABtrial LAMAPFTsLD CTrefer to pulm Human immunodeficiency virus infection 72413994 B20 10/21/23: taking HIV medication needs new HIV referral, sent to Dr. Solorzano npt declined labs today 04/21/22:pr inted off referral and encouraged pt to call to schedule appt 03/20/22:di agnosed 20 yrs ago, states her levels are undetecta bleon truvada, prezista, and ritonavirp t of Dr. Franco, moved to [facility] to establish with infectious disease provider Acute exac erbation of chronic obstructive pulmonary disease 792998459 J44.1 10/21/23:pr oductive cough with yellow sputum for 3 monthsSOB with walking long distancesV SS O2- 91%PEx- decreased breath sounds to all lung fieldstria l augmentin x7 days 07/13/22:c /o productive cough with sputum x3 wksno improvemen t with symbicort 160 mcgcough is worse at nighttakin g OTC robitussin and nyquil w/o reliefsput um was green, currently yellowdeni es fever, chills or SOBPEx- lungs CTABencour aged to use neb treatment more frequently if neededtria l prednisone and augmentina dvised pt if no improvemen t in 5 days, need to f/u with pulmcannot give PO steroid with prezista, changed to liquid form Essential hypertension 54297677 I10 BP 132/60refi l losartan 25 Tobacco de pendence in remission 013715283 F17.201 quit smoking 01/2022, 1/2 ppd since age 7ordered LDCT scanf/u in 1 mo Depression screening 171 777099 Z13.31 PHQ 0 [id number] Bassam Salas MD [facility] [address] [place] [address] 03/15/2024 11:19:56 03/27/2024 12:40:30 Chronic obstructive pulmonary disease 47455411 J44.9 symbicort/ spirivaMDI teachingLD CT Chronic cough 97446118 R 05.3 Nicotine dependence 5629 4008 F17.023 [id number] Nitin gracia MD [facility] [address] [place] [address] 03/30/2024 16:45:55 03/30/2024 17:29:12 Underweight 002317213 R63.6 routine labs- will complete outpatient or come back for nurse visitBMI 16.2severe emphysema Human immunodeficiency virus infection 66961452 B20 03/30/24: needs new referral to ID 10/21/23: taking HIV medication needs new HIV referral, sent to Dr. Solorzano npt declined labs today 04/21/22:pr inted off referral and encouraged pt to call to schedule appt 03/20/22:di agnosed 20 yrs ago, states her levels are undetecta bleon truvada, prezista, and ritonavirp t of Dr. Franco, moved to [facility] to establish with infectious disease provider Screening for malignant neoplasm of breast 691680615 Z12.39 declines Screening for malignant neoplasm of colon 473745090 Z12.11 declines colonoscop y, will send Cologuard Pulmonary emphysema 8743 3001 J43.9 found on LDCT 01/2024OV with Dr. Salas 03/15/24- Doing well on symbicort 160 and spiriva respimatde nies increased SOB or coughdenie s wheezingha s not required nebsdue for repeat PFTs Excessive thirst 2659241 7 R63.1 x3 monthsoccu rs once a day, lasts 15 minutessp ell of something coming over my body and then I'm dying for thirstImp rovement with eating something sweetAdmit s to drinking 2 gallons of water daily, eats 2-3 meals/day, but always feels thirstyden ies cp or SOB with episodesst ates that she felt thirsty before started using power inhalerwil l check a1c and electrolyt es todayencou raged to drink juice or tea when episode occurs to see if sx improverec 'd pt buy BS meter to r/o hypoglycem ia Depression screening 171 006418 Z13.31 PHQ 0 [id number] Bassam Salas MD [facility] [address] [place] [address] 06/14/2024 13:50:31 06/14/2024 14:23:20 Chronic obstructive pulmonary disease 05578426 J44.9 symbicort/ spirivaMDI teaching Chronic cough 17554891 R 05.3 Nicotine dependence 5629 4008 F17.175 [id number] Bassam Salas MD [facility] [address] [place] [address] 02/21/2025 15:22:53 02/21/2025 16:01:19 Chronic obstructive pulmonary disease 06956957 J44.9 symbicort/ spirivaMDI teachingpr ednisone at 10 mg Chronic bronchitis 63022 004 J42 symbicort/ spirivaMDI teaching Essential hypertension 02100709 I10 home meds [id number] MD Aris Blackmon (Adult Med) [address] [place] [address] 03/14/2025 10:30:02 03/14/2025 14:10:51 Requires tetanus and diphtheria vaccination 863078616 Z23 Human immunodeficiency virus infection 49571051 B20 Screening mammography 24 343940 Z12.31 Blurring o f visual image 002770425 H53.8 Health Concerns Section Related Observation LastModified by Organization Detai ls LastModified Time None Recorded Concern Status LastModified by Organization Details LastModified Time None Recorded Advance Directives Directive N: Payers Encounter Date Sequence Insurance Name Policy Number Policy Lundberg Covered Member ID Lundberg Member ID Guarantor Name 03/15/2024 1 [facility] (MEDICAID HMO) [id number] Roxanne Hoese [id number] Roxanne Cotton 03/30/2024 1 [facility] (MEDICAID HMO) [id number] Roxanne Cotton [id number] Roxanne Cotton 06/14/2024 1 [facility] (MEDICAID HMO) [id number] Roxanne Hoese [id number] Roxanne Cotton 02/21/2025 1 [facility] (MEDICAID HMO) [id number] 0003 Roxanne Hoese [id number] Roxanne Cotton 03/14/2025 1 [facility] (MEDICAID HMO) [id number] 0003 Roxanne Cotton [id number] Roxanne Cotton Notes Date Note Type Note Provider Name and Address Organization Details Recorded Time 4 text/html f/u for COPDCOPD, tobacco use, HIV, prediabetes, cavernous hemangioma of brainDoing well on symbicort 160 and spiriva respimatdenies increased SOB or coughdenies wheezinghas not required nebsPFT 08/05/22:no significant change post bronchoFEV1/FVC ratio:43 %DLCO: 43 %LDCT,reviewedstopped smoking 10/2021uses nocturnal J4hsvngaf in hom[place]en[place] 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 Reports that she appt with Dr. Salas 2 wks ago, doing well on spiriva and symbicort and he would like to repeat her PFTs.C/o spell of something coming over my body and then I'm dying for thirst, for the past couple of months. Occurs once a day, lasts 15 minutes, feels like I'm doing to pass out. Improvement with eating something sweet. Admits to drinking 2 gallons of water daily, eats 2-3 meals/day, but always feels thirsty. KIMBERLI SALADNA Attn: Accounting,[address] 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, [place] [employer] [place] [address] st[place] Salas MD [address] [place], [address], [facility] 06/14/2024 14:15:09 5 text/html f/u for COPDCOPD, tobacco use, HIV, prediabetes, cavernous hemangioma of brainDoing well on symbicort 160 and spiriva respimatdenies increased SOB or coughdenies wheezingPFT reviewed from 06/21/2024LDCT,reviewedsto pped smoking 10/2021uses nocturnal [id number] in [place]en[place] 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 She has always been under the care of Dr. Franco, who has moved out of the area and her regimen was, Prezista, Ritonavir and Truvada which she has not taken for probably a year. She denies any complications from HIV, although in the last few years her respiratory status has worsened and she was admitted to [facility] last year with pneumonia. She is not sexually active, but she has had oral candidiasis and worsening of the vision in the left eye, she apparently has history of cataracts. PMHX. COPD, HTN, HIV disease, Hypercholesterolemia. PCP Dr Underwoodmonologist Dr Maritza Go MD Attn: Accounting,[address] [facility], [place], [address], [facility] 03/14/2025 14:10:47 OBGyn Episode No OBEpisode recorded.
--- OUTSIDE RECORDS SUMMARY | 2025-03-14 14:54 | XMS_ITS | Clinical Summary ---
Author Organization [facility] Address [address] [place] [address] Care Team Providers Care Associate Accountant Name Role Phone Donya Mejia Primary Care Provider [phone] Allergies Active Allergy Reactions Criticality Noted Date Comments Meperidine Anaphylaxis High 08/17/2022 [place] Rash Medium 08/17/2022 Medications albuterol HFA (PROVENTIL HFA,VENTOLIN HFA,PROAIR HFA) 90 mcg/actuation inhaler albuterol sulfate HFA 90 mcg/actuation aerosol inhaler INHALE TWO PUFFS BY MOUTH FOUR TIMES A DAY BY INHALATION ROUTE NEEDED Active darunavir ethanolate (Prezista) 800 mg tablet Prezista 800 mg tablet Take 1 tablet(s) every day by oral route. Active budesonide-form oteroL (SYMBICORT) 160-4.5 mcg/actuation inhaler every 12 hours Activ e ritonavir (NORVIR) 100 mg tablet ritonavir 100 mg tablet TAKE ONE TABLET BY MOUTH ONCE DAILY Active azithromycin (ZITHROMAX) 250 mg tablet Take 1 tablet (250 mg total) by mouth daily Active Active Problems Problem Noted Date Diagnosed Date Hernia of anterior abdominal wall 08/17/2022 Human immunodeficiency virus infection 2 Medial epicondylitis 08/17/2022 Pain in limb 08/17/2022 Right wrist pain 07/02/2022 Surgical History Surgery Date Site/Laterality Comments HYSTERECTOMY TONSILLECTOMY Medical History Medical History Date Comments HIV disease (HCC) Cavernous angioma brain stem Family History Medical History Relation Name Comments Cancer Father Cancer Mother Diabetes Mother Relation Name Status Comments Father Mother Social History Tobacco Use Types Packs/Day Years Used Date Smoking Tobacco: Former Cigarettes Tobacco Cessation:Counseling Given: Not Answered Personal Safety Answer Date Recorded Getting School Help Needed Not on file 11/28 Comments Unknown Sex and Gender Information Value Date Recorded Sex Assigned at Not on file Legal Sex Female 1:28 PM 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 Gender Identity Not on file Sexual Orientation Not on file Obstetrics History Last Filed Vital Signs Vital Sign Reading Time Taken Comments Blood Pressure - - Pulse - - Temperature - - Respiratory Rate - - Oxygen Saturation - - Inhaled Oxygen Concentration - - Weight 49.9 kg (110 lb) 08/17/2022 12:54 PM 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 Height 160 cm (5' 3) 08/17/2022 12:54 PM 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 Body Mass Index 19.49 08/17/2022 12:54 PM 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 Plan of Treatment Health Maintenance Due Date Last Done Comments Breast Cancer Screening-Mammogram 1962 Cervical Cancer Screening-Pap and HPV 1962 Colon Cancer Screening-Colonoscopy 1962 Depression Screening 1962 HLA B 5701 Typing 1962 Proteinuria screening Urinalysis (UA) 1962 T Spot (quantiferon gold) 1962 Lipid Panel 01/02/1972 DTaP/Tdap/Td Vaccine (1 - Tdap) 1973 HIV+ Chlamydia and Gonorrhea Screening (Rectal) 1972 HIV + Chlamydia and Gonorrhea Screening (Urine) 1974 HIV+ Chlamydia and Gonorrhea Screening (Throat) 1974 Hepatitis C Screening 1975 RPR Screening 1975 G6PD 01/02/1980 Hemoglobin A1C 01/02/1980 Hepatitis A Screening 01/02/1980 Hepatitis B Screening 01/02/1980 Regular Well Visit/Exam 18-64 01/02/1980 Hepatitis A Vaccines (1 of 2 - Risk 2-dose series) Zoster Vaccine (1 of 2) 1981 Osteoporosis Screening-Bone Density Scan 01/02/2012 Pneumococcal vaccine <65 (2 of 2 - PCV) 10/11/2019 0 10/11/2018 Hepatitis B Vaccines (1 of 3 - Risk 3-dose series) Influenza Vaccine (Season Ended) 2025 Insurance [facility] [place] [facility] [place] Care Teams Associate Accountant Relationship Specialty Start Date End Date Donya Mejia PA [address] [place] [id number] PCP - General Physician Financial Operations Consultant 03/26/22
--- OUTSIDE RECORDS SUMMARY | 2025-03-14 14:54 | XMS_ITS | Continuity of Care Document ---
Author Organization [facility] Address [address] [place] [address] [facility] [address] [place] [address] Phone Care Team Providers Care E Commerce Analyst Name Role Phone Seamus Quinn Unavailable Unavailable Procedures Procedure Date Eye Exam, New Patient Advance Directives Directive Yes / No Effective Date File Name No Information Encounters Encounter Description Practice Location Reason(s) For Visit Diagnoses Date Provider Providers Copied on Encounter [facility], [address] [place] [address] [address], [place], [place], [id number], [place] tel:[phone] [facility] No Information [address] [facility] [address], [place], [address], [place]. tel:[phone] Family History Family Member Type Diagnosis Age At Onset No Information Payers Payer name Insurance type Covered constitution party ID Authoriza tion(s) Medicaid [place] CI [id number] Social History Type Description Quantity Date Captured [...]
--- OUTSIDE RECORDS SUMMARY | 2025-03-14 14:54 | XMS_ITS | Continuity of Care Document ---
Author Organization [facility] Address [address] [place] [address] Care Team Providers Care Informatics Physician Liaison Name Role Phone CRYSTAL JOHNSON Primary Care Provider Assessment Encounter Date [...] available Not available Not available ANY 2024 03:30P KIMBERLI PINA Not available Not available Not available ANY 2024 01:30P Bay Go MD Not available Not available Not available ANY 2024 02:15P Bay Salas MD Not available Not available Not available Lab cd4 T-cells, blood 2024 025 [facility], [address], [address] [address], [place], [address], 03/14/2025 11:05:54 Hepatitis C IgG Ab, qual, serum 2024 025 [facility], [address], [place], [address], 03/14/2025 11:05:52 chlamydia trachomat is + neisseria gonorrhoe ae + trichomon as vaginalis rRNA panel, JOSH+probe 2024 025 ROSALVA [facility], [address], [place], [address], 03/14/2025 11:05:51 RPR (rapid plasma reagin), serum 2024 025 ROSALVA Ramirez, [address], [place], [address], 03/14/2025 11:05:54 HIV-1 RNA, quantitat rodo, PCR, serum or plasma 2024 025 ROSALVA Ramirez, [address], [place], [address], 03/14/2025 11:05:53 CMP, serum or plasma 2024 025 ROSALVA Ramirez, [address], [place], [address], 03/14/2025 11:05:52 CBC w/ auto diff 2024 025 ROSALVA Ramirez, [address], [place], [address], 03/14/2025 11:05:54 Mycobacte rium tuberculo sis stimulate d gamma interfero n, qual, blood 2024 025 [facility]VA Ramirez, [address], [place], [address], 03/14/2025 11:05:53 hepatitis B surface Ab, quantitat rodo, serum 2024 025 ROSALVA Ramirez, [address], [place], [address], 03/14/2025 11:05:51 lipid panel, serum 2024 025 [facility], [address], [place], [address], 03/14/2025 11:05:53 HIV 1 + 2, meaningfu l use set 2024 [facility], [address], [place], [address], 03/14/2025 11:05:52 HIV 1 RNA reverse transcrip tase and protease and integrase gene mutations detected, sequencin g, plasma 2024 025 [facility], [address], [place], [address], 03/14/2025 11:26:47 Referral ophthalmo logist referral 2024 025 [facility], [address], [place], [address], 03/14/2025 11:13:01 Procedures None recorded. Surgeries None recorded. Imaging MAMMO, screening , digital, bilateral 2024 025 [facility], [address], [place], [address], 03/14/2025 11:12:27 Medication Orders None recorded. Patient TargetsNo targets recorded. 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 eye. Hx of cataracts and HIV disease Referring Physician: Cinda Go, Internal Medicine, Encounter Date: 03/14/2025 Problems Name Problem SNOMED Code Status Onset Date Resolution Date Notes Provider Name and Address Organization Details Recorded Time Chronic obstructiv e pulmonary disease 81625399 Active 2021 KIMBERLI SALDANA Attn: Accountin g,[address], [place], [address], [place] [facility] 2 11:05:32 Human immunodefi ciency virus infection 68887707 Active 2021 Cinda Go MD Attn: Accountin g,[address], [place], [address], [place] [facility] 5 11:28:54 Cavernous hemangioma of brain 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 2021 KIMBERLI SALDANA Attn: Accountin g,[address], [place], [address], [place] [facility] 2 11:48:59 Tobacco dependence in remission 659813592 Active 2021 quit 01/2022 KIMBERLI SALDANA Attn: Accountin g,[address], [place], [address], [place] [facility] 2 11:49:16 Prediabete s 063327856 Active 2021 a1c 6.4 KIMBERLI SALDANA Attn: Accountin g,[address], [place], [address], [place] [facility] 2 11:15:00 Liver mass 701763722 Active 2023 MRI nl KIMBERLI SALDANA Attn: Accountin g,[address], [place], [address], [place] [facility] 4 09:17:42 Pulmonary emphysema 19687458 Active 2023 KIMBERLI SALDANA Attn: Accountin g,[address], [place], [address], [facility] - [facility] 4 09:25:28 Screening for malignant neoplasm of colon Active 2023 cologuard negative 06/2024, repeat 2026 KIMBERLI SALDANA Attn: Narendra g,[address], [place], [address], [facility] - [facility] 4 10:56:13 Problem Notes None recorded. Procedures Surgical History Date Name Laterality Status Provider Name and Address Organization Details Recorded Time Partial hysterectomy completed Danni Chowdary MA [facility] 03/20/2022 11:01:10 tonsilectomy/wicho oids completed Danni Chowdary MA [facility] 03/20/2022 11:01:18 Imaging Results None recorded. Procedure Notes None recorded. Medical Equipment None Reported. Allergies Allergen ID Allergen Name Allergen Category Reaction Reaction Severity Criticality Documentation Date Start Date Code Code System Note Provider Name and Address Organization Details Recorded Time 14720512 Demerol medicatio n Not available Not available Not available 03/20/2022 37819 1 RxNorm Danni Chowdary MA null, [facility] 2 10:55:01 Medications Name Sig Start [...] Updated DateTime 5 160.02 cm 16.5 kg/m2 74452.0 9 g 86 /min 90 % 90 % 18 /min 97.5 [degF] 130 mm[Hg] 80 mm[Hg] DAVID Ruiz [facility] 5 10:44:49 Social History Question Answer Notes LastModified by Bettyvisionat ion Details LastModified Time Tobacco Smoking Status Former Smoker Quit smoking in 10/2021 Chiqui Barahona LPN null, [place] - [facility] 06/25/2022 10:53:32 Do You Have An Advance [...] Information not available 03/20/2022 HIV Dx By [facility] No Informatio n not available 03/14/2025 [...] Do You Have A Medical Power Of Bank Compliance Officer? No [email or web address] Information not available 12/08/2022 What [...] anxious, or unable to sleep at night)? [id number] Information not available 03/20/2022 Family History Relationship Description Onset Age of this Age Resolved Age Notes LastModified by Organization Details LastModified Time Mother Malignant neoplasm of lung [email or web address] Not available 2021 10:48:48 Notes:Mother had Lung Cancer Medical History Condition Response Coronary Artery Disease N Other Y High Blood Pressure Y Atrial Fibrillation N Thyroid Problems N Kidney or Bladder Problems N GI Problems N Depression N COPD Y Blood Clots N Skin Problems N Eating Disorder N Anemia N Heart Attack ([place]) N Anxiety Disorder N Diabetes N Muscle, Joint, or Bone Problems N Seizures/Epilepsy N Acid Reflux (GERD) N Cancer N Stroke N Asthma N Allergies N ADHD N Substance Abuse N High Cholesterol N Hepatitis N Liver Disease N Schizophrenia N Headaches N Heart Failure N Osteoporosis N Gynecological [...] PF, 30 mcg/0.3 mL dose 1 completed HEATHER DuncanA [place], [place] [facility] 04/14/2024 12:17:23 COVID-19, mRNA, LNP-S, PF, 30 mcg/0.3 mL dose 1 completed CHENG [place] [facility] 04/14/2024 12:17:23 zoster recombinant 8 completed HEATH[place]A [place] [facility] 04/14/2024 12:17:22 zoster recombinant 8 completed CHENG [place] [facility] 04/14/2024 12:17:22 COVID-19, mRNA, LNP-S, PF, 30 mcg/0.3 mL dose 1 completed CHENG [place] [facility] 04/14/2024 12:17:23 Pneumococcal conjugate PCV20, polysaccharide [id number] conjugate, adjuvant, PF 2 completed CHENG [place] [facility] 04/14/2024 12:17:23 pneumococcal polysaccharide PPV23 9 jadyn Edouard, RMA null, [place] - [facility] 04/14/2024 12:17:23 Tdap 5 completed Vaishali Clifford MA rafael, [place] - [facility] 03/14/2025 13:55:16 Past Encounters Encounter ID Performer Location Encounter Start Date Encounter Closed Date Diagnosis/Indication Diagnosis SNOMED-CT Code Diagnosis ICD10 Code Diagnosis Note [id number] Bassam Salas MD [facility] [address] [place] [address] 02/21/2025 15:22:53 02/21/2025 16:01:19 Chronic obstructive pulmonary disease 41440053 J44.9 symbicort/ spirivaMDI teachingpr ednisone at 10 mg Chronic bronchitis 11643 004 J42 symbicort/ spirivaMDI teaching Essential hypertension 12971188 I10 home meds [id number] Cinda Go MD [facility] ([facility]) [address] [place] [address] 03/14/2025 10:30:02 03/14/2025 14:10:51 Requires tetanus and diphtheria vaccination 897529970 Z23 Human immunodeficiency virus infection 87076817 B20 Screening mammography 24 768604 Z12.31 Blurring o f visual image 586728859 H53.8 Health Concerns Section Related Observation LastModified by Organization Detai ls LastModified Time None Recorded Concern Status LastModified by Organization Details LastModified Time None Recorded Payers Encounter Date Sequence Insurance Name Policy Number Policy Lundberg Covered Member ID Lundberg Member ID Guarantor Name 03/14/2025 1 [facility] (MEDICAID HMO) [id number] Roxanne Zavala [id number] Roxanne Zavala Notes Date Note Type Note Provider Name and Address Organization Details Recorded Time 5 text/html HIV care only Help, I [...] has worsened and she was admitted to [facility] last year with pneumonia. She is not sexually active, but she has had oral candidiasis and worsening of the vision in the left eye, she apparently has history of cataracts. PMHX. COPD, HTN, HIV disease, Hypercholesterolemia. PCP Dr Underwoodmonologist Dr Maritza Go MD Attn: Accounting,[address] [facility], [place], [address], [facility] 03/14/2025 14:10:47 OBGyn Episode No OBEpisode recorded.
--- OUTSIDE RECORDS SUMMARY | 2025-03-14 14:55 | XMS_ITS | Referral Summary ---
Author Organization [facility] Address [address] [place] [address] Care Team Providers Care Product Support Engineer Name Role Phone Donya Mejia Primary Care Provider [phone] Allergies Active Allergy Reactions Criticality Noted Date Comments Meperidine Anaphylaxis High 08/17/2022 [place] Rash Medium 08/17/2022 Medications albuterol HFA (PROVENTIL [...] abdominal wall 08/17/2022 Human immunodeficiency virus infection Medial epicondylitis 08/17/2022 Pain in limb 08/17/2022 Right wrist pain 07/02/2022 Social History Tobacco Use Types Packs/Day Years Used Date Smoking Tobacco: Former Cigarettes Tobacco Cessation:Counseling Given: Not Answered Personal Safety Answer Date Recorded Getting School Help Needed Not on file 11/28 Comments Unknown Sex and Gender Information Value Date Recorded Sex Assigned at Not on file Legal Sex Female 1:28 PM OUTSIDE UPHOLSTERER Gender Identity Not on file Sexual Orientation Not on file Last Filed Vital Signs Vital Sign Reading Time Taken Comments Blood Pressure - - Pulse - - Temperature - - Respiratory Rate - - Oxygen Saturation - - Inhaled Oxygen Concentration - - Weight 49.9 kg (110 lb) 08/17/2022 12:54 PM OUTSIDE UPHOLSTERER Height 160 cm (5' 3) 08/17/2022 12:54 PM OUTSIDE UPHOLSTERER Body Mass Index 19.49 08/17/2022 12:54 PM OUTSIDE UPHOLSTERER Plan of Treatment Not on file Insurance [facility] Care Teams Product Support Engineer Relationship Specialty Start Date End Date Donya Mejia PA [address] [place] [id number] PCP - General Physician Wedding Decorator 03/26/22
== END 2025-03-14 12:55 | disposition home or self-care (01) ==
PROVIDERS: PCP Physician Assistant; Visit Provider Internal Medicine Critical Care Medicine
DX: J44.9 Chronic obstructive pulmonary disease, unspecified (principal)
CPT/HCPCS: 94618

== ENCOUNTER 2025-04-12 09:57 | Observation (INO) | payer OTHER, SELFPAY ==
[2025-04-12] VITALS (13 sets, daily range): BP systolic 137–166; BP diastolic 72–103; PULSE 74–99; RESP 15–24; TEMP 36.2–37.3; O2SAT 83–98; BMI 16.4
--- NOTE | ~2025-04-12 | XR_ITS ---
EXAM/PROCEDURE: XR chest 2V - 04/12/2025 11:06 CDT HISTORY: 65 years old Female with chest wall pain, PT STATES RT SIDE RIB PAIN, NO KNOWN INJURY TECHNIQUE: Two view(s) of the chest. COMPARISON: None available. FINDINGS: LUNGS/ PLEURA: Airspace opacity in right midlung zone and airspace opacity in the left lung base, con cerning for pneumonia. No pleural effusions or pneumothorax. HEART/ MEDIASTINUM: Heart appears normal in size. BONES: Degenerative changes. OTHER: Visualized upper abdomen is unremarkable. IMPRESSION: Findings concerning for bilateral pneumonia number in right midlung zone and left lung base), as deta iled above. Short-term follow-up chest radiograph is recommended after appropriate clinical therapy. Reviewed, dictated and finalized at location A. IMPRESSION: Findings concerning for bilateral pneumonia number in right midlung zone and le ft lung base), as detailed above. Short-term follow-up chest radiograph is john mmended after appropriate clinical therapy.
[2025-04-12 11:05] LABS: Hematocrit 39.9 % (37.0-47.0); Hemoglobin 12.1 g/dL (12.0-15.0); Immature Granulocyte Percent A 0.7 % (0-0.5); Lymphocytes Absolute Auto 1.10 K/mm3 (0.9-3.2); Mean Corpuscular HGB Conc 30.3 g/dl (32-36); Mean Corpuscular Hemoglobin 25.0 pg (26-34); Mean Corpuscular Volume 82.4 fl (80-100); Nucleated Red Blood Cells Absolute Auto 0.000 K/mm3 (0.0-0.012); Nucleated Red Blood Cells Perc 0.0 % (0.0-0.2); Platelet Count Result 349 k/mm3 (150-375); Red Blood Count 4.84 M/mm3 (4.2-5.4); White Blood Count 15.1 K/mm3 (4.5-10.0)
--- OUTSIDE RECORDS SUMMARY | 2025-04-12 11:16 | XMS_ITS | Data Portability ---
Author Organization [facility] Address [address] [place] [address] Care Team Providers Care Wetlands Technician Name Role Phone DONYA JOHNSON Primary Care Provider [phone] Assessment Encounter Date Assessment Date Assessment LastModified [...] Organization Details Last Modified Time Details Appointments ANY 30 2024 01:30P Bay Go MD Not available Not available Not available ANY 15 2024 02:15P Bay Salas MD Not available Not available Not available Lab cd4 T-cells , blood 2024 025 [facility], [address], [place], [address], 03/22/2025 09:39:56 Hepatit is C IgG Ab, qual, serum 2024 025 ROS[facility]VA [facility], [address], [place], [address], 03/22/2025 09:39:52 chlamyd ia trachom atis + neisser ia gonorrh oeae + trichom onas vaginal is rRNA panel, JOSH+pro be 2024 025 [facility], [address], [place], [address], 03/22/2025 09:39:53 RPR (rapid plasma reagin) , serum 2024 [facility], [address], [place], [address], 03/22/2025 09:39:59 HIV-1 RNA, quantit ative, PCR, serum or plasma 2024 025 [facility], [address], [place], [address], 03/16/2025 19:09:33 CMP, serum or plasma 2024 025 [facility], [address], [place], [address], 03/22/2025 09:39:55 CBC w/ auto diff 2024 025 [facility], [address], [place], [address], 04/04/2025 11:14:23 Mycobac terium tubercu losis stimula harry gamma interfe jose de jesus, qual, blood 2024 025 [facility], [address], [place], [address], 03/17/2025 06:15:26 hepatit is B surface Ab, quantit ative, serum 2024 025 [facility], [address], [place], [address], 03/22/2025 09:39:58 lipid panel, serum 2024 025 [facility], [address], [place], [address], 03/22/2025 09:39:54 HIV 1 + 2, meaning ful use set 2024 025 [facility], [address], [place], [address], 03/22/2025 09:40:00 HIV 1 RNA reverse transcr iptase and proteas e and integra se gene mutatio ns detecte d, sequenc ing, plasma 2024 025 [facility], [address], [place], [address], 03/22/2025 09:39:57 noninva sive colorec clay cancer DNA + occult blood screeni ng, QL, stool 2023 024 [facility] (Colog[facility]ard Orders Only), [address], [address], [place], [address], 06/06/2024 10:43:24 CMP, serum or plasma 2023 024 [facility], [address], [place], [address], 03/30/2024 17:16:23 lipid panel, serum 2023 024 [facility], [address], [place], [address], 03/30/2024 17:16:23 CBC w/ auto diff 2023 024 [facility], [address], [place], [address], 04/10/2024 17:05:05 TSH + free T4, serum 2023 024 [facility], [address], [place], [address], 03/30/2024 17:16:24 HbA1c (hemogl obin A1c), blood 2023 024 [facility], [address], [place], [address], 03/30/2024 17:16:24 Referral ophthal mologis t referra l 2024 025 [email or web address] [facility], [address], [place], [address], 04/02/2025 15:33:14 infecti ous disease special ist referra l 2023 024 [email or web address] Cinda Go MD, [address] [facility], [place], [address], 04/19/2024 07:53:26 Procedures None recorde d. Surgeries None recorde d. Imaging MAMMO, screeni ng, digital , bilater al 2024 025 [facility], [address], [place], [address], 04/11/2025 12:04:58 PFT, complet e 2023 024 [facility] (Cardiology & Emg), [address], [place], [address], 07/03/2024 15:47:41 LDCT, chest, for lung cancer screeni ng 2023 024 [facility] (Rad), [address] [facility] [address] [facility] , [place], [address], 03/17/2024 12:21:27 PFT, complet e 2023 024 [email or web address] [facility] (Cardio Ekg), [address], [place], [address], 05/17/2024 14:03:00 Medication Orders ipratro pium 0.5 mg-albu terol 3 mg (2.5 mg base)/3 mL nebuliz ation soln 2023 024 [facility] #[id number], [address], [place], [address], 06/14/2024 14:14:33 prednis one 10 mg tablet 2023 024 [facility] #[id number], [address], [place], [address], 06/14/2024 14:14:35 Patient TargetsNo targets recorded. Patient Instructions Encounter Date Encounter Id Patient Instructions Last Modified By Organization Details Last Modified Time 03/30/2024 [id number] eating healthy foods: care instructions [email or web address] Not available 03/30/2024 17:16:15 02/21/2025 [id number] 6 minute walk test* [email or web address] Not avai lable 02/21/2025 16:51:08 03/14/2025 [id number] mammogram: about this test oajao Not available 03/14/2025 11:07:09 acquired immunodeficiency syndrome (AIDS): care instructions oajao Not available 03/14/2025 11:01:02 Most recent HIV labs from [facility] Records Dr Painter [facility] Follow up in 6 weeks oajao Not available 03/14/2025 11:09:02 HIV risk dependency counselor ing was done oajao Not available 03/14/2025 14:08:59 Reason for Referral Infectious Disease Specialis t Referral for Human immunodeficiency virus infection Referring Physician: Donya Johnson, Family Medicine, Encounter Date: 03/30/2024 Quill Stripper Referral for Blurring of visual image Blurred [...] ant featu res) is prese nt. The [facility] e that a perso n with a negat felicita Colog uard test has a color ectal cance r is less than 1 in 1500 (nega tive predi ctive value >99.9 %) or has an advan moon adeno ma is less than 5.3% (nega tive predi ctive value 94.7% ). These data are based on a prosp ectiv e cross -sect ional study of 0 indiv idual s at [place] risk for color ectal cance r who were scree stacy with both Colog uard and colon oscop y. (Lanette Lambert et al, N Engl J Med 2014; 370(1 4):12 86-12 97) The lisa l value (refe rence range ) for this assay is negat felicita. COLOG UARD RE-SC REECAROL NUNEZ RECOM MENDA TION: Perio dic color ectal cance r scree rosa m is an impor tant part of preve ntive healt hcare for asymp tomat ic indiv idual s at [place] risk for color ectal cance r. [...] diagn osis- stagi ng/ac s-rec ommen datio ns.aimee ml.; Lino WADSWORTH, Amber BERGERON, Noni CARBALLO, Color ectal Cance r Scree rosa m: Recom menda tions for Physi cians and Patie nts from the [place]. Multi -Soci ety Task Force on Color ectal Cance r Scree Mar mederos y 2017; 112:1 016-1 030. TEST DESCR IPTIO N: [place] site algor ithmi c ezequiel sis of stool DNA-b iomar kers with hemog lobin immun oassa y. Quant itati ve value s of indiv idual bioma rkers are not repor table and are not assoc iated with indiv idual bioma rker resul t refer ence range s. Colog uard is inten ded for color ectal cance r scree rosa m of adult s of eithe r sex, 45 years or older , who are at [facility] for color ectal cance r (CRC) . Colog uard has been appro liss for use by the [place]. FDA. The perfo rmanc e of Colog uard was estab lishe d in a cross secti onal study of [facility] adult s aged 50-84 . Colog uard perfo rmanc e in patie nts ages 45 to 49 years was estim ated by kevin-g nabeelp ezequiel sis of near- age group s. Colon oscop ies perfo rmed for a posit felicita resul t may find as the most clini maye signi sharifa t lesio n: color ectal cance r [4.0% ], advan omon adeno ma (incl uding sessi le chay harry polyp s great er than or equal to 1cm diame ter) [20%] or non- advan moon adeno ma [31%] ; or no color ectal neopl karal [45%] . These estim ates are deriv ed from a prosp ectiv e cross -sect ional scree rosa m study of 10,00 0 indiv idual s at [facility] risk for color ectal cance r who [...] uard perfo rmanc e data in a 10,00 0 patie nt pivot al study using colon oscop y as the refer ence metho d can be acces sed at the follo wing locat ion: www.e xactl abs.c om/re sults . Addit ional descr iptio n of the Colog uard test proce ss, warni ngs and preca ution s can be found at www.c richar gianna.c om. Not Available [facility] (Cologuard Orders Only) [address], [place], [address], 06/06/2024 10:43:24 03/14/20 25 03/16/2025 RNA, REAL TIME PCR (NON- GRAPH ) HIV-1 RNA by PCR 29958 copie s/mL The repor table range for this assay is 20 to 10,00 0,000 copie s HIV-1 RNA/m L. Not Available [facility] ([facility]) [address] [facility], [place], [address], 03/16/2025 19:09:33 03/14/20 25 03/16/2025 RNA, REAL TIME PCR (NON- GRAPH ) log10 HIV-1 RNA 4.852 log10 copy/ mL Not Available [facility] ([facility]) [address] [facility], [place], [address], 03/16/2025 19:09:33 03/14/20 25 03/15/2025 QUANT IFERO N-TB GOLD PLUS quantiferon incubation INCUBA TION PERFOR MED. Not Available [facility] ([facility]) [address] [facility], [place], [address], 03/17/2025 06:15:26 03/14/2003/15/2025 QUANT IFERO N-TB GOLD PLUS quantiferon criteria COMMEN T Quant iFERO N-TB Gold Plus is a quali tativ e indir ect test for M tuber culos is infec tion (incl uding disea se) and is inten ded for use in conju nctio n with risk asses sment , radio graph y, and other medic al and diagn ostic evalu ation s. The Quant iFERO N-TB Gold Plus resul t is deter mined by subtr actin g the Nil value from eithe r TB antig en (Ag) value . The Mitog en tube serve s as a contr ol for the test. Not Available [facility] ([facility]) [address] [facility], [place], [address], 03/17/2025 06:15:26 03/14/20 25 03/16/2025 QUANT IFERO N-TB GOLD PLUS quantiferon- TB gold plus NEGATI VE negati ve No respo nse to M tuber culos is antig ens detec harry. Infec tion with M tuber culos is is unlik stanislaw, but high risk indiv idual s shoul d be consi dered for addit ional testi ng (ATS/ IDSA/ CDC Clini vaishali Pract ice Guide lines , 2017) . The refer ence range is an Antig en minus Nil resul t of <0.35 IU/mL . Chemi lumin escen ce immun oassa y metho dolog y Not Available [facility] ([facility]) [address] [facility], [place], [address], 03/17/2025 06:15:26 03/14/2003/16/2025 QUANT IFERO N-TB GOLD PLUS quantiferon TB1 Ag value 0.04 IU/mL Not Available [facility] ([facility]) [address] [facility], [place], [address], 03/17/2025 06:15:26 03/14/20 25 03/16/2025 QUANT IFERO N-TB GOLD PLUS quantiferon TB2 Ag value 0.04 IU/mL Not Available [facility] ([facility]) [address] [facility], [place], [address], 03/17/2025 06:15:26 03/14/20 25 03/16/2025 QUANT IFERO N-TB GOLD PLUS quantiferon nil value 0.04 IU/mL Not Available [facility] ([facility]) [address] [place], [address], 03/17/2025 06:15:26 03/14/20 25 03/16/2025 QUANT IFERO N-TB GOLD PLUS quantiferon mitogen value >10.00 IU/mL Not Available [facility] ([facility]) [address] [place], [address], 03/17/2025 06:15:26 03/14/20 25 03/15/2025 HCV ANTIB JALEN hep C virus Ab NON REACTI VE nonrea ctive HCV antib jalen alone does not diffe renti ate betwe en previ ously resol liss infec tion and activ e infec tion. Equiv ocal and React felicita HCV antib jalen resul ts shoul d be follo wed up with an HCV RNA test to suppo rt the diagn osis of activ e HCV infec tion. Not Available [facility] ([facility]) [address] [facility], [place], [address], 03/22/2025 09:39:52 03/14/20 25 03/16/2025 CT, NG, TRICH VAG BY JOSH chlamydia by JOSH NEGATI VE negati ve Not Available [facility] ([facility]) [address] [place], [address], 03/22/2025 09:39:53 03/14/20 25 03/16/2025 CT, NG, TRICH VAG BY JOSH gonococcus by JOSH NEGATI VE negati ve Not Available [facility] ([facility]) [address] [place], [address], 03/22/2025 09:39:53 03/14/20 25 03/16/2025 CT, NG, TRICH VAG BY JOSH trich vag by JSOH NEGATI VE negati ve Not Available [facility] ([facility]) [address] [place], [address], 03/22/2025 09:39:53 03/14/20 25 03/15/2025 LIPID PANEL cholesterol, total 170 mg/dL 100-19 9 Not Available [facility] ([facility]) [address] [place], [address], 03/22/2025 09:39:54 03/14/20 25 03/15/2025 LIPID PANEL triglyceride s 48 mg/dL 0-149 Not Available [facility] ([facility]) [address] [place], [address], 03/22/2025 09:39:54 03/14/20 25 03/15/2025 LIPID PANEL HDL cholesterol 70 mg/dL >39 Not Available [facility] ([facility]) [address] [place], [address], 03/22/2025 09:39:54 03/14/20 25 03/15/2025 LIPID PANEL VLDL cholesterol vaishali 10 mg/dL 5-40 Not Available [facility] ([facility]) [address] [place], [address], 03/22/2025 09:39:54 03/14/20 25 03/15/2025 LIPID PANEL LDL chol calc ([facility]) 90 mg/dL 0-99 Not Available [facility] ([facility]) [address] [place], [address], 03/22/2025 09:39:54 03/14/20 25 03/15/2025 COMP. METAB OLIC PANEL (14) glucose 81 mg/dL 70-99 Not Available [facility] ([facility]) [address] [place], [address], 03/22/2025 09:39:55 03/14/20 25 03/15/2025 COMP. METAB OLIC PANEL (14) BUN 8 mg/dL 8-27 Not Available [facility] ([facility]) [address] [place], [address], 03/22/2025 09:39:55 03/14/20 25 03/15/2025 COMP. METAB OLIC PANEL (14) creatinine 0.63 mg/dL 0.57-1 .00 Not Available [facility] ([facility]) [address] [place], [address], 03/22/2025 09:39:55 03/14/20 25 03/15/2025 COMP. METAB OLIC PANEL (14) eGFR 100 mL/mi n/1.7 3 >59 Not Available [facility] ([facility]) [address] [place], [address], 03/22/2025 09:39:55 03/14/20 25 03/15/2025 COMP. METAB OLIC PANEL (14) BUN/creatini ne ratio 13 12-28 Not Available [facility] ([facility]) [address] [place], [address], 03/22/2025 09:39:55 03/14/20 25 03/15/2025 COMP. METAB OLIC PANEL (14) sodium 134 mmol/ L 134-14 4 Not Available [facility] ([facility]) [address] [place], [address], 03/22/2025 09:39:55 03/14/20 25 03/15/2025 COMP. METAB OLIC PANEL (14) potassium 4.9 mmol/ L 3.5-5. 2 Not Available [facility] ([facility]) [address] [place], [address], 03/22/2025 09:39:55 03/14/20 25 03/15/2025 COMP. METAB OLIC PANEL (14) chloride 94 mmol/ L 96-106 below low normal Not Available [facility] ([facility]) [address] [place], [address], 03/22/2025 09:39:55 03/14/20 25 03/15/2025 COMP. METAB OLIC PANEL (14) carbon dioxide, total 27 mmol/ L 20-29 Not Available [facility] ([facility]) [address] [place], [address], 03/22/2025 09:39:55 03/14/20 25 03/15/2025 COMP. METAB OLIC PANEL (14) calcium 9.1 mg/dL 8.7-10 .3 Not Available [facility] ([facility]) [address] [place], [address], 03/22/2025 09:39:55 03/14/20 25 03/15/2025 COMP. METAB OLIC PANEL (14) protein, total 6.9 g/dL 6.0-8. 5 Not Available [facility] ([facility]) [address] [place], [address], 03/22/2025 09:39:55 03/14/20 25 03/15/2025 COMP. METAB OLIC PANEL (14) albumin 4.0 g/dL 3.9-4. 9 Not Available [facility] ([facility]) [address] [place], [address], 03/22/2025 09:39:55 03/14/20 25 03/15/2025 COMP. METAB OLIC PANEL (14) globulin, total 2.9 g/dL 1.5-4. 5 Not Available [facility] ([facility]) [address] [place], [address], 03/22/2025 09:39:55 03/14/20 25 03/15/2025 COMP. METAB OLIC PANEL (14) bilirubin, total <0.2 mg/dL 0.0-1. 2 Not Available [facility] ([facility]) [address] [facility], [place], [address], 03/22/2025 09:39:55 03/14/20 25 03/15/2025 COMP. METAB OLIC PANEL (14) alkaline phosphatase 78 IU/L 44-121 Not Available [facility] ([facility]) [address] [facility], [place], [address], 03/22/2025 09:39:55 03/14/20 25 03/15/2025 COMP. METAB OLIC PANEL (14) AST (SGOT) 21 IU/L 0-40 Not Available [facility] ([facility]) [address] [facility], [place], [address], 03/22/2025 09:39:55 03/14/20 25 03/15/2025 COMP. METAB OLIC PANEL (14) ALT (SGPT) 13 IU/L 0-32 Not Available [facility] ([facility]) [address] [facility], [place], [address], 03/22/2025 09:39:55 03/14/20 25 03/14/2025 HELPE R T-LYM PH-CD 4 WBC 6.6 x10e3 /uL 3.4-10 .8 Not Available [facility] ([facility]) [address] [facility], [place], [address], 03/22/2025 09:39:56 03/14/20 25 03/14/2025 HELPE R T-LYM PH-CD 4 RBC 4.89 x10e6 /uL 3.77-5 .28 Not Available [facility] ([facility]) [address] [facility], [place], [address], 03/22/2025 09:39:56 03/14/20 25 03/14/2025 HELPE R T-LYM PH-CD 4 hemoglobin 12.2 g/dL 11.1-1 5.9 Not Available [facility] ([facility]) [address] [facility], [place], [address], 03/22/2025 09:39:56 03/14/20 25 03/14/2025 HELPE R T-LYM PH-CD 4 hematocrit 40.6 % 34.0-4 6.6 Not Available [facility] ([facility]) [address] [facility], [place], [address], 03/22/2025 09:39:56 03/14/2003/14/2025 HELPE R T-LYM PH-CD 4 MCV 83 fL 79-97 Not Available [facility] ([facility]) [address] [facility], [place], [address], 03/22/2025 09:39:56 03/14/2003/14/2025 HELPE R T-LYM PH-CD 4 MCH 24.9 pg 26.6-3 3.0 below low normal Not Available [facility] ([facility]) [address] [facility], [place], [address], 03/22/2025 09:39:56 03/14/20 25 03/14/2025 HELPE R T-LYM PH-CD 4 MCHC 30.0 g/dL 31.5-3 5.7 below low normal Not Available [facility] ([facility]) [address] [facility], [place], [address], 03/22/2025 09:39:56 03/14/2003/14/2025 HELPE R T-LYM PH-CD 4 RDW 13.6 % 11.7-1 5.4 Not Available [facility] ([facility]) [address] [place], [address], 03/22/2025 09:39:56 03/14/2003/14/2025 HELPE R T-LYM PH-CD 4 platelets 339 x10e3 /uL 150-45 0 Not Available [facility] ([facility]) [address] [facility], [place], [address], 03/22/2025 09:39:56 03/14/20 25 03/14/2025 HELPE R T-LYM PH-CD 4 neutrophils 73 % notest ab. Not Available [facility] ([facility]) [address] [facility], [place], [address], 03/22/2025 09:39:56 03/14/20 25 03/14/2025 HELPE R T-LYM PH-CD 4 lymphs 17 % notest ab. Not Available [facility] ([facility]) [address] [facility], [place], [address], 03/22/2025 09:39:56 03/14/20 25 03/14/2025 HELPE R T-LYM PH-CD 4 monocytes 7 % notest ab. Not Available [facility] ([facility]) [address] [facility], [place], [address], 03/22/2025 09:39:56 03/14/20 25 03/14/2025 HELPE R T-LYM PH-CD 4 eos 3 % notest ab. Not Available [facility] ([facility]) [address] [facility], [place], [address], 03/22/2025 09:39:56 03/14/20 25 03/14/2025 HELPE R T-LYM PH-CD 4 basos 0 % notest ab. Not Available [facility] ([facility]) [address] [place], [address], 03/22/2025 09:39:56 03/14/20 25 03/14/2025 HELPE R T-LYM PH-CD 4 neutrophils (absolute) 4.8 x10e3 /uL 1.4-7. 0 Not Available [facility] ([facility]) [address] [facility], [place], [address], 03/22/2025 09:39:56 03/14/20 25 03/14/2025 HELPE R T-LYM PH-CD 4 lymphs (absolute) 1.1 x10e3 /uL 0.7-3. 1 Not Available [facility] ([facility]) [address] [facility], [place], [address], 03/22/2025 09:39:56 03/14/20 25 03/14/2025 HELPE R T-LYM PH-CD 4 monocytes(ab solute) 0.5 x10e3 /uL 0.1-0. 9 Not Available [facility] ([facility]) [address] [facility], [place], [address], 03/22/2025 09:39:56 03/14/20 25 03/14/2025 HELPE R T-LYM PH-CD 4 eos (absolute) 0.2 x10e3 /uL 0.0-0. 4 Not Available [facility] ([facility]) [address] [facility], [place], [address], 03/22/2025 09:39:56 03/14/20 25 03/14/2025 HELPE R T-LYM PH-CD 4 baso (absolute) 0.0 x10e3 /uL 0.0-0. 2 Not Available [facility] ([facility]) [address] [facility], [place], [address], 03/22/2025 09:39:56 03/14/20 25 03/14/2025 HELPE R T-LYM PH-CD 4 immature granulocytes 0 % notest ab. Not Available [facility] ([facility]) [address] [facility], [place], [address], 03/22/2025 09:39:56 03/14/20 25 03/14/2025 HELPE R T-LYM PH-CD 4 immature grans (abs) 0.0 x10e3 /uL 0.0-0. 1 Not Available [facility] ([facility]) [address] [facility], [place], [address], 03/22/2025 09:39:56 03/14/20 25 03/15/2025 HELPE R T-LYM PH-CD 4 absolute cd 4 helper 219 /uL 359-15 19 below low normal Not Available [facility] ([facility]) [address] [facility], [place], [address], 03/22/2025 09:39:56 03/14/20 25 03/15/2025 HELPE R T-LYM PH-CD 4 % cd 4 pos. lymph. 19.9 % 30.8-5 8.5 below low normal Not Available [facility] ([facility]) [address] [facility], [place], [address], 03/22/2025 09:39:56 03/14/20 25 03/22/2025 GENOS URE PRIME (R) pdf . Not Available [facility] ([facility]) [address] [facility], [place], [address], 03/22/2025 09:39:57 03/14/2003/22/2025 GENOS URE PRIME (R) HIV genosure prime(R) COMMEN T Adonis gene ampli con adequ ate for seque ncing Not Available [facility] ([facility]) [address] [place], [address], 03/22/2025 09:39:57 03/14/2003/22/2025 GENOS URE PRIME (R) HIV genosure prime(R) COMMEN T The HIV-1 GenoS ure PRIme (R) for this speci men has been compl eted. GenoS ure PRIme (R) HIV-1 Subty pe: B Drug Genot ypic Gener ic Name Brand Name Asses sment Comme nts ----- ----- ----- ----- ----- - ----- ----- ----- --- NRTI [place] vir Ziage n Sensi tive Chucho* : None Didan osine Videx Sensi tive Chucho* : None Emtri citab ine Emtri va Sensi tive Chucho* : None Lamiv udine Epivi r Sensi tive Chucho* : None Stavu dine Zerit Sensi tive Chucho* : None Tenof ovir Virea d Sensi tive Chucho* : None Zidov udine Retro vir Sensi tive Chucho* : None NNRTI Dorav irine Pifel tro Sensi tive Chucho* : [id number] /M Efavi alyssa Susti va Sensi tive Chucho* : None Etrav irine Intel ence Sensi tive Chucho* : None Nevir apine Viram une Sensi tive Chucho* : None Rilpi virin e Edura nt Sensi tive Chucho* : None INI Bicte gravi r Bicte gravi r Sensi tive Chucho* : None [place] egrav ir [place] egrav ir Sensi tive Chucho* : None Dolut egrav ir Tivic ay Sensi tive Chucho* : None Elvit egrav ir Vitek ta Sensi tive Chucho* : None Ralte gravi r Isent ress Sensi tive Chucho* : None PI Ataza navir /r Reyat az / r Sensi tive Chucho* : L10L/ I Darun avir/ r Prezi sta / r Sensi tive Chucho* : L10L/ I Fosam prena vir/r Lexiv a / r Sensi tive Chucho* : L10L/ I Indin avir/ r Crixi van / r Sensi tive Chucho* : L10L/ I Lopin avir Kalet ra Sensi tive Chucho* : L10L/ I Nelfi navir Virac ept Sensi tive Chucho* : L10L/ I Riton avir Norvi r Sensi tive Chucho* : L10L/ I Saqui navir /r Invir ase / r Sensi tive Chucho* : L10L/ I Tipra navir /r Aptiv us / r Sensi tive Chucho* : None *[facility] = [facility] Mutat ions obser liss [facility] [facility] Obser liss: RT: E40E/ D, S48T, Q102K , K122P , D123D /E, C162S , D177D /E, I178I /M, R211Q , V245L /M, V276V /I, Q278E [place]: S17N, V31V/ I, V113V /I, T124G , T125P , K156N , V201I , V234L [place]: L10L/ I, L63P, I72I/ V, V77V/ I, I93L Asses sment of drug susce ptibi lity is based upon detec harry mutat ions and inter prete d using an advan moon propr ietar y algor ithm (vers ion 19). Not Available [facility] ([facility]) [address] [facility], [place], [address], 03/22/2025 09:39:57 03/14/20 25 03/22/2025 GENOS URE PRIME (R) HIV genosure prime(R) interp COMMEN T Inter preta tion algor ithms for riton avir- boost ed prote ase inhib itors appro priat e for the follo wing dosag es: AMP/r 600mg /100m g BID; ATV/r 300mg /100m g QD; IDV/r 800mg /200m g BID; LPV/r 400mg /100m g BID; SQV/r 1000m g/100 mg BID; TPV/r 500mg /200m g BID; and DRV/r 600mg /100m g BID. Mixtu res are indic ated by amino acids separ ated by a slash . Assay Perfo rmanc e Henry [employer] st[employer] - Assay is highl y repro ducib le and suffi cient ly sensi tive to allow testi ng of patie nt sampl es with viral loads as low as 500 copie s/mL. - Detec ts mixtu res of wild- type and drug- resis tant virus es when prese nt at level s as low as 10% of the total popul ation . - Uses Bind[employer] florian's HIV genot yping algor ithm, which is based on a large datab ase of over 100,0 00 match ed HIV genot ype-p henot ype resul ts and is revie wed and updat ed on a regul ar basis . - Inclu elsa HIV-1 subty pe which provi elsa infor matio n that can be impor tant for long- term drug treat ment strat egy and genot ype inter preta tion. For more infor matio n on inter preti ng this repor t, pleas e call [employer] [facility] [employer] ce at [phone] betwe en the hours of 7:00a m to 6:30p m EST Mon y throu gh y or 8:00a m to 5:00p m EST . GenoS ure PRIme is a DNA seque nce assay based on prime r exten viet and chain termi natio n that ezequiel zes the prote ase (barksdale o acids 1-99) , rever se trans cript ase (barksdale o acids 1-320 ) and integ rase (barksdale o acids 1-288 ) codin g regio ns in HIV-1 . Subty pe is deter mined using the prote ase and rever se trans cript ase seque nce infor matio n. This test is valid ated for testi ng speci mens with HIV-1 viral loads equal to or above 500 copie s/mL and shoul d be inter prete d only on such speci mens. This test was devel oped and its perfo rmanc e henry cteri stics deter mined by [employer]. It has not been clear ed or appro liss by the Food and Drug Admin istra tion. [employer] is a subsi diary of [employer] atory [employer], using the brand [employer]. The resul ts shoul d not be used as the sole crite miguel for patie nt manag ement . This docum ent conta ins priva te and confi denti al healt h infor matio n prote cted by state and bud al law. If you have recei liss this docum ent in error , felicity e call [phone]. Not Available [facility] ([facility]) [address] [facility], [place], [address], 03/22/2025 09:39:57 03/14/20 25 03/15/2025 HEPAT ITIS B SURF AB QUANT hepatitis B surf Ab quant <3.5 below low normal Statu s of Immun ity Anti- HBs Level ----- ----- ----- --- ----- ----- ---- Incon siste nt with Immun ity 0.0 - 10.0 Consi stent with Immun ity >10.0 Not Available [facility] ([facility]) [address] [facility], [place], [address], 03/22/2025 09:39:58 03/14/2003/14/2025 RPR, RFX QN RPR/C ONFIR M TP interpretati on: COMMEN T Syphi lis: RPR with Refle x to RPR Titer and Trepo nemal Antib odies , Tradi radha l Scree rosa m and Diagn osis Algor ithm ----- ----- ----- ----- ----- ----- ----- ----- ----- ----- ----- ----- Trepo nemal RPR RPR, Qn Ab Final Inter preta tion ----- --- ----- ---- ----- ----- ----- ----- ----- ----- ---- Non N/A N/A No labor atory evide nce React felicita of syphi lis. Retes t in 2-4 weeks if recen t expos ure us suspe cted. ----- --- ----- ---- ----- ----- ----- ----- ----- ----- ---- React felicita >/=1: 1 Non Nontr epone mal antib odies React felicita detec harry. Syphi lis unlik stanislaw; biolo gical false posit felicita possi ble. Retes t in 2-4 weeks if recen t expos ure is suspe cted. ----- --- ----- ---- ----- ----- ----- ----- ----- ----- ---- React felicita >/=1: 1 React felicita Trepo nemal and nontr epone mal antib odies detec harry. Consi stent with past or curre nt (pote ntial early ) syphi lis. Not Available [facility] ([facility]) [address] [facility], [place], [address], 03/22/2025 09:39:59 03/14/2003/15/2025 RPR, RFX QN RPR/C ONFIR M TP RPR NON REACTI VE nonrea ctive Not Available [facility] ([facility]) [address] [facility], [place], [address], 03/22/2025 09:39:59 03/14/2003/15/2025 HIV AB/P2 4 AG WITH REFLE X HIV Ab/P24 Ag screen PRELIM INARY REACTI VE Pleas e refer to the Final Inter preta tion. Resul ts react felicita by HIV Antig en/An tibod y EIA must be confi rmed by the HIV testi [facility] to be consi dered indic ative of a true HIV infec tion. Not Available [facility] ([facility]) [address] [facility], [place], [address], 03/22/2025 09:39:59 03/14/2003/15/2025 HIV 1/2 AB DIFFE RENTI ATION HIV 1 Ab REACTI VE nonrea ctive Not Available [facility] [address], [place], [address], 03/22/2025 09:40:01 03/14/20 25 03/15/2025 HIV 1/2 AB DIFFE RENTI ATION HIV 2 Ab NON REACTI VE nonrea ctive Not Available [facility] [address], [place], [address], 03/22/2025 09:40:01 03/14/20 25 03/15/2025 HIV 1/2 AB DIFFE RENTI ATION interpretati on: HIV-1 POSITI VE abnormal Labor atory evide nce consi stent with HIV-1 infec tion. Not Available [facility] [address], [place], [address], 03/22/2025 09:40:01 03/02/20 24 03/01/2024 MRI, liver , w/wo contr ast No observ ation record ed. [email or web address] [address], [place], [address], 03/08/2024 12:15:26 04/04/20 24 04/04/2024 XR, chest , 2 view No observ ation record ed. [address] [id number], [place], [address], 04/05/2024 10:43:28 07/03/20 24 06/21/2024 PFT, compl ete No observ ation record ed. [facility] ([facility]iology [facility]) [address] [place] [address], [place], [address], 07/03/2024 15:47:41 04/04/20 25 03/14/2025 6 minut e walk test* No observ ation record ed. [address], [place], [address], 04/11/2025 13:58:22 Result Notes None recorded. Problems Name Problem SNOMED Code Status Onset Date Resolution Date Notes Provider Name and Address Organization Details Recorded Time Chronic obstructiv e pulmonary disease 96456604 Active 2021 KIMBERLI SALDANA Attn: Accountdutch g,[address] [facility], [place], [address], [place] [facility] 2 11:05:32 Human immunodefi ciency virus infection 27567739 Active 2021 Cinda Go MD Attn: Accountdutch g,[address] [facility], [place], [address], [place] [facility] 5 11:28:54 Cavernous hemangioma of brain 697613210 Active 2021 KIMBERLI SALDANA Attn: Accountdutch g,[address] [facility], [place], [address], [place] [facility] 2 11:48:59 Tobacco dependence in remission 071924480 Active 2021 quit 01/2022 KIMBERLI SALDANA Attn: Accountdutch g,[address] [facility], [place], [address], [place] [facility] 2 11:49:16 Prediabete s 986706691 Active 2021 a1c 6.4 KIMBERLI SALDANA Attn: Accountdutch g,[address] [facility], [place], [address], [place] [facility] 2 11:15:00 Liver mass 393648686 Active 2023 MRI nl KIMBERLI SALDANA Attn: Accountdutch g,[address] [facility], [place], [address], [place] [facility] 4 09:17:42 Pulmonary emphysema 42260323 Active 2023 KIMBERLI SALDANA Attn: Accountin g,[address] [facility], [place], [address], [place] [facility] 4 09:25:28 Screening for malignant neoplasm of colon Active 2023 cologuard negative 06/2024, repeat 2026 KIMBERLI SALDANA Attn: Accountin g,[address] [place], [address], [facility] 4 10:56:13 Problem Notes None recorded. Procedures Surgical History Date Name Laterality Status Provider Name and Address Organization Details Recorded Time Partial hysterectomy completed Danni Chowdary MA [facility] 03/20/2022 11:01:10 tonsilectomy/wicho oids completed Danni Chowdary MA [facility] 03/20/2022 11:01:18 Imaging Results None recorded. Procedure Notes None recorded. Medical Equipment None Reported. Allergies Allergen ID Allergen Name Allergen Category Reaction Reaction Severity Criticality Documentation Date Start Date Code Code System Note Provider Name and Address Organization Details Recorded Time 011809 Demerol medicatio n Not available Not available Not available 03/20/2022 60823 1 RxNorm Danni Chowdary MA null, [facility] 2 10:55:01 Medications Name Sig Start Date [...] completed Not Available Not Available Not Available fluconazole 200 mg tablet TAKE 1 TABLET EVERY DAY BY ORAL ROUTE DIRECTED FOR 7 DAYS, FOR THRUSH. active Not Available Not Available No t Available prednisone 20 mg tablet TAKE 1 [...] HFA 90 mcg/actuati on aerosol inhaler INHALE 2 PUFFS INTO LUNGS EVERY 4 HOURS active Not Available Not Available No t Available amoxicillin 875 mg-potassiu m clavulanate 125 mg tablet TAKE 1 TABLET BY MOUTH EVERY 12 HOURS WITH MEALS FOR 7 DAYS 02/02 completed Not Available Not Available Not Available Spiriva with HandiHaler 18 mcg and inhalation capsules active Not Available Not Available Not Available Truvada 200 mg-300 mg tablet TAKE 1 TABLET BY MOUTH EVERY DAY active Not Available Not Available No t Available Truvada 03/20 completed Not Available Not Available Not Available Symbicort 160 mcg-4.5 mcg/actuati on HFA aerosol inhaler INHALE 2 PUFFS INTO THE LUNGS TWICE A DAY active Not Available Not Available No t Available ritonavir 100 mg tablet TAKE 1 TABLET BY MOUTH EVERY DAY active Not Available Not Available No t Available Mucus Relief ER 600 mg tablet, extended release TAKE 1 TABLET BY MOUTH EVERY 12 HOURS FOR 7 DAYS 02/16 completed Not Available Not Available Not Available darunavir 800 mg tablet TAKE 1 TABLET BY MOUTH EVERY DAY active Not Available Not Available No t Available Spiriva Respimat 2.5 mcg/actuati on solution [...] blood by Pulse oximetry Heart rate Systolic And Diastolic Provider Name and Address Organization Details Last Updated DateTime 5 160.02 cm 16.7 kg/m2 68752.6 8 g 96.6 [degF] 22 /min 96 % 96 % 96 /min 162/86 mm[Hg] Renate Fraser LPN [place] [facility] 5 15:31:05 Date Recorded Body height Body mass index (BMI) Body weight Heart rate Oxygen saturation Oxygen saturation in Arterial blood by Pulse oximetry Respiratory rate Body temperature Systolic And Diastolic Provider Name and Address Organization Details Last Updated DateTime 5 160.02 cm 16.5 kg/m2 09228.0 9 g 86 /min 90 % 90 % 18 /min 97.5 [degF] 130/80 mm[Hg] Vaishali Clifford MA [place] [facility] 5 10:44:49 Date Recorded Body height Body mass index (BMI) Body weight Body temperature Respiratory rate Oxygen saturation Oxygen saturation in Arterial blood by Pulse oximetry Heart rate Systolic And Diastolic Provider Name and Address Organization Details Last Updated DateTime 4 160.02 cm 15.8 kg/m2 33016.7 2 g 97.5 [degF] 18 /min 94 % 94 % 86 /min 142/82 mm[Hg] Renate Fraser LPN [facility] 4 11:35:24 Date Recorded Body height Body mass index (BMI) Body weight Oxygen saturation Oxygen saturation in Arterial blood by Pulse oximetry Heart rate Respiratory rate Systolic And Diastolic Provider Name and Address Organization Details Last Updated DateTime 4 160.02 cm 16.2 kg/m2 82690.3 1 g 94 % 94 % 78 /min 18 /min 138/87 mm[Hg] Poppy Cazares MA [facility] 4 16:52:10 Date Recorded Body height Heart rate Oxygen saturation Oxygen saturation in Arterial blood by Pulse oximetry Respiratory rate Body temperature Body mass index (BMI) Body weight Systolic And Diastolic Provider Name and Address Organization Details Last Updated DateTime 4 160.02 cm 96 /min 90 % 90 % 18 /min 97.5 [degF] 16.5 kg/m2 96188.0 9 g 106/70 mm[Hg] Renate Fraser LPN [facility] 4 14:01:32 Social History Question Answer Notes LastModified by Organizat ion Details LastModified Time Tobacco Smoking Status Former Smoker Quit smoking in 10/2021 Chiqui Barahona LPN [facility] 06/25/2022 10:53:32 Do You Have An [...] Information not available 03/20/2022 [facility] No Informatio n not available 03/14/2025 RW HIV Risk Counseling #1 03/14/2025 Information not available 03/14/2025 RW HIV QI Project No Information not available 03/14/2025 RW Dental Provider None Information not available 03/14/2025 Do You Feel Physically And Emotionally Safe In Your Neighborhood Or Other Public Places? Yes Information not available 03/14/2025 Current Gender Identity Female Information not available 03/14/2025 Risk Factor 1 Heterosexual Contact Information not available 03/14/2025 Program Designation Orlando Hernandez Information not available 03/15/2025 HIV Diagnosis Date 10/04/1999 Information not available 03/14/2025 Do You Have A Medical Power Of Boot And Shoe Repairman? No [email or web address] Information not available 12/08/2022 What [...] Many Years Have You Sm[facility] Tobacco? [facility] Information not available 06/25/2022 Sex: Female Functional [...] anxious, or unable to sleep at night)? [id number] Information not available 03/20/2022 Family History Relationship Description Onset Age of this Age Resolved Age Notes LastModified by Organization Details LastModified Time Mother Malignant neoplasm of lung [facility] Not available 2021 10:48:48 Notes:Mother had Lung Cancer Medical History Condition Response Coronary Artery Disease N Other Y High Blood Pressure Y Atrial Fibrillation N Thyroid Problems N Kidney or Bladder Problems N GI Problems N Depression N COPD Y Blood Clots N Skin Problems N Eating Disorder N Anemia N Heart Attack ([place]) N Anxiety Disorder N Diabetes N Muscle, [...] [facility] 04/14/2024 12:17:22 zoster recombinant 8 completed Mimi Edouard RMA [place], [place] [facility] 04/14/2024 12:17:22 COVID-19, mRNA, LNP-S, PF, 30 mcg/0.3 mL dose 1 completed M[place] Edou[place] R[place] [facility] 04/14/2024 12:17:23 Pneumococcal conjugate PCV20, polysaccharide BTL328 conjugate, adjuvant, PF 2 completed M[place] Edouard R[place] [facility] 04/14/2024 12:17:23 pneumococcal polysaccharide PPV23 9 completed M[place] Edouard R[place] [facility] 04/14/2024 12:17:23 Tdap 5 completed Vaishali Clifford [place], [place] [facility] 03/14/2025 13:55:16 Past Encounters Encounter ID Performer Location Encounter Start Date Encounter Closed Date Diagnosis/Indication Diagnosis SNOMED-CT Code Diagnosis ICD10 Code Diagnosis Note [id number] Nitin gracia MD [facility] [address] [place] [address] 03/20/2022 10:38:00 03/24/2022 09:14:28 Chronic obstructive pulmonary disease 54561014 J44.9 quit smoking 2 months ago1/2 ppd since age 7not controlled with symbicortu sing neb every 6 hours and albuterol inhaler dailyc/o productive cough and SOBPEx- nl, lungs CTABtrial LAMAPFTsLD CTrefer to pulm Human immunodeficiency virus infection 91454489 B20 diagnosed 20 yrs ago, states her levels are undetecta bleon truvada, prezista, and ritonavirp t of Dr. Franco, moved to [facility] to establish with infectious disease provider Adult heal th examination 126318397 Z00.00 hospitaliz ed x3 days at [facility] for hypokalemi a and acute COPD exacerbati onput on IV potassiumc /o leg cramping and SOB, eating bananaswil l re-check labs today to see if need to start PO potassium Depression screening 171 231110 Z13.31 PHQ 3 Cavernous hemangioma of brain 450523542 D18.02 1994- half of her body went numb due to brain bleedingha s not seen neurology in years, unknown last imaging studyrefer to neuro to establish [id number] Nitin gracia MD [facility] [address] [place] [address] 04/21/2022 15:26:41 04/22/2022 12:53:49 Chronic obstructive pulmonary disease 84642087 J44.9 04/21/22:c/ o worsening cough with incruse powder, difficulty swallowing up all night coughingus ing neb and albuterol TIDPFTs were scheduled this AM, but was advised to re-schedul e due to persistent coughO2 93%PEx- mild rhonchi to bilateral lower lobessched uled appt [facility] w/ Marielena Moreno [employer] MACHINE [employer]EDER on 04/30/22 @ 9:45 AMtrial spiriva w/o powder, LAMAsteroi d 20mg BID x7 days- CI with prezistgemma ll trial oral prednisolo ne rec'd by pharmacy to have less interactio npneumonia vaccine done 03/05/22 03/20/22qui t smoking 2 months ago1/2 ppd since age 7not controlled with symbicortu sing neb every 6 hours and albuterol inhaler dailyc/o productive cough and SOBPEx- nl, lungs CTABtrial LAMAPFTsLD CTrefer to pulm Cavernous hemangioma of brain 907383253 D18.02 04/21/22:pr inted off referral and encouraged pt to call to schedule appt 03/20/22:19 95- half of her body went numb due to brain bleedingha s not seen neurology in years, unknown last imaging studyrefer to neuro to establish Human immunodeficiency virus infection 79725977 B20 04/21/22:pr inted off referral and encouraged pt to call to schedule appt 03/20/22:di agnosed 20 yrs ago, states her levels are undetecta bleon truvada, prezista, and ritonavirp t of Dr. Franco, moved to [facility] to establish with infectious disease provider Screening for malignant neoplasm of breast 439517619 Z12.39 due for mammo [id number] [facility] [address] [address] 06/25/2022 10:45:56 06/25/2022 14:00:18 Chronic obstructive pulmonary disease 38257951 J44.9 Stable on Symbicort 160 mcg as maintenanc eContinue MDI, albuterol as needed, duonebsPFT , 6 min walkWill check AATEchoove rnight oximetry on room air Human immunodeficiency virus infection 88383848 B20 Taking truvada, prezista, and ritonavir Body mass index less than 20 254270097 Z68.1 Nicotine d ependence in remission 249908849 F17.201 stopped smoking mok ing for 55 years, 1 ppd - 57 PYHWill order LDCT, lung cancer screening. Discussed risk/benef its, importance of annual screening adherence, and smoking cessation. [id number] Nitin gracia MD [facility] [address] [place] [address] 07/13/2022 10:05:38 07/14/2022 16:26:46 Chronic obstructive pulmonary disease 47651297 J44.9 07/13/22:e nico gracia today, see abovesaw [...] lobessched uled appt [facility] w/ Marielena Moreno [employer] MACHINE FEEDER on 04/30/22 @ 9:45 AMtrial spiriva w/o [...] CTrefer to pulm Candidiasis of mouth 797 29799 B37.0 due to symbicorto ral nystatin mouth wash Elevated blood-pressure reading without diagnosis of hypertension 714808243 R03.0 150/80 v5fwmkbs at [facility], 150s/80sst art losartan 25advised to check BP at home, goal BP <130/80, f/u with BP log in 1 wk Acute exac erbation of chronic obstructive pulmonary disease 999932133 J44.1 c/o productive cough with sputum x3 [...] to liquid form Pain in right arm 764128 [address] 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 I have recommende d referral to the elbow specialist at [facility] as this is a very unusual and difficult case and I have no personal experience with this type of surgery.Ad dendum: Patient called on 07/03/2022 concerned that she would not be able to be seen until August at [facility]. as it is possible that her exacerbati [...] We will order MRI without gadolinium . [id number] Bassam Salas MD [facility] [address] [address] 12/08/2022 14:05:32 12/09/2022 11:30:12 Chronic obstructive pulmonary disease 23973829 J44.9 StableSymb icort 160 mcg as maintenanc eContinue I, albuterol as needed, duonebsove rnight oximetry on room air Nicotine d ependence in remission 443080060 F17.201 stopped smoking mok ing for 55 years, 1 ppd - 57 PYHWill re-order LDCT, lung cancer screening ordered prior and approved, not completed. Discussed risk/benef its, importance of annual screening adherence, and smoking cessation. Human immunodeficiency virus infection 15238937 B20 Taking truvada, prezista, and ritonavir Body mass index less than 20 435705438 Z68.1 [id number] MARIELENA MORENO NP [facility] [address] [address] 02/16/2023 14:45:29 02/17/2023 07:19:09 Chronic obstructive pulmonary disease 64050037 J44.9 StableSymb icort 160 mcg and spiriva respimatCo ntinue MDI, albuterol as needed, duonebs Nicotine d ependence in remission 734788604 F17.201 stopped smoking mok ing for 55 years, 1 ppd - 57 PYH Will re-order LDCT, lung cancer screening ordered prior and approved, not completed. Discussed risk/benef its, importance of annual screening adherence, and smoking cessation. Human immunodeficiency virus infection 76002504 B20 Taking truvada, prezista, and ritonavir Body mass index less than 20 573478233 Z68.1 Dependence on nocturnal oxygen therapy 8588697681 9108 Z99.81 increase to 2L/min O2 with sleepWill repeat oximetry study on 2l/min [id number] KIMBERLI SALDANA [facility] [address] [place] [address] 10/21/2023 12:28:56 10/22/2023 13:00:02 Chronic obstructive pulmonary disease 13510351 J44.9 10/21/23: 08/2022- PFT and 6 Minute [...] lobessched uled appt [facility] w/ Marielena Moreno [employer] M[employer]INE FEEDER on 04/30/22 @ 9:45 AMtrial spiriva w/o [...] CTrefer to pulm Human immunodeficiency virus infection 35510508 B20 10/21/23: taking HIV medication needs new HIV referral, sent to Dr. Solorzano npt declined labs today 04/21/22:pr inted off referral and encouraged pt to call to schedule appt 03/20/22:di agnosed 20 yrs ago, states her levels are undetecta bleon truvada, prezista, and ritonavirp t of Dr. Franco, moved to [facility] to establish with infectious disease provider Acute exac erbation of chronic obstructive pulmonary disease 697218195 J44.1 10/21/23:pr oductive cough with yellow sputum [...] prezista, changed to liquid form Essential hypertension 65914832 I10 BP 132/60refi l losartan 25 Tobacco de pendence in remission 250458226 F17.201 quit smoking 01/2022, 1/2 ppd since age 7ordered LDCT scanf/u in 1 mo Depression screening 171 066981 Z13.31 PHQ 0 [id number] Bassam Salas MD [facility] [address] [place] [address] 03/15/2024 11:19:56 03/27/2024 12:40:30 Chronic obstructive pulmonary disease 18647670 J44.9 symbicort/ spirivaMDI teachingLD CT Chronic cough 97471391 R 05.3 Nicotine dependence 5629 4008 F17.091 [id number] Nitin gracia MD [facility] [address] [place] [address] 03/30/2024 16:45:55 03/30/2024 17:29:12 Underweight 518891130 R63.6 routine labs- will complete outpatient or come back for nurse visitBMI 16.2severe emphysema Human immunodeficiency virus infection 10578514 B20 03/30/24: needs new referral to ID 10/21/23: taking HIV medication needs new HIV referral, sent to Dr. Solorzano npt declined labs today 04/21/22:pr inted off referral and encouraged pt to call to schedule appt 03/20/22:di agnosed 20 yrs ago, states her levels are undetecta bleon truvada, prezista, and ritonavirp t of Dr. Franco, moved to [facility] to establish with infectious disease provider Screening for malignant neoplasm of breast 005228749 Z12.39 declines Screening for malignant neoplasm of colon 474518076 Z12.11 declines colonoscop y, will send Cologuard Pulmonary emphysema 8743 3001 J43.9 found on LDCT 01/2024OV with Dr. Salas 03/15/24- Doing well on symbicort 160 and spiriva respimatde nies increased SOB or coughdenie s wheezingha s not required nebsdue for repeat PFTs Excessive thirst 4227269 7 R63.1 x3 monthsoccu rs once a [...] to r/o hypoglycem ia Depression screening 171 272790 Z13.31 PHQ 0 [id number] Bassam Salas MD [facility] [address] [place] [address] 06/14/2024 13:50:31 06/14/2024 14:23:20 Chronic obstructive pulmonary disease 95346428 J44.9 symbicort/ spirivaMDI teaching Chronic cough 55124143 R 05.3 Nicotine dependence 5629 4008 F17.687 [id number] Bassam Salas MD [facility] [address] [place] [address] 02/21/2025 15:22:53 02/21/2025 16:01:19 Chronic obstructive pulmonary disease 13014767 J44.9 symbicort/ spirivaMDI teachingpr ednisone at 10 mg Chronic bronchitis 19198 004 J42 symbicort/ spirivaMDI teaching Essential hypertension 11615131 I10 home meds [id number] Cinda Go MD [facility] (Adult Med) [address] [place] [address] 03/14/2025 10:30:02 03/15/2025 09:49:31 Requires tetanus and diphtheria vaccination [id number] Z23 Human immunodeficiency virus infection [id number] B20 Screening mammography 24 355180 Z12.31 Blurring o f visual image [id number] H53.8 Health Concerns Section Related Observation LastModified by Organization Detai ls LastModified Time None Recorded Concern Status LastModified by Organization Details LastModified Time None Recorded Advance Directives Directive N: Payers Insurance Date Sequence Insurance Name Policy Number Policy Lundberg Covered Member ID Lundberg Member ID Guarantor Name 03/24/2025 1 [facility] (MEDICAID HMO) [id number] Roxanne Zavala [id number] Roxanne Zavala 03/24/2022 1 *SELF PAY* Tr nav Zavala Notes Date Note Type Note Provider Name and Address Organization Details Recorded Time 4 text/html f/u for COPDCOPD, tobacco use, HIV, prediabetes, cavernous hemangioma of brainDoing well on symbicort 160 and spiriva respimatdenies increased SOB or coughdenies wheezinghas not required nebsPFT 08/05/22:no significant change post bronchoFEV1/FVC ratio:43 %DLCO: 43 %LDCT,reviewedstopped smoking 10/2021uses nocturnal Q1yeqmbky in hom[place]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, lives by [employer] [place] stanton Salas MD [address] [place], [address], [facility] 06/14/2024 14:15:09 5 text/html f/u for COPDCOPD, tobacco use, HIV, prediabetes, cavernous hemangioma of brainDoing well on symbicort 160 and spiriva respimatdenies increased SOB or coughdenies wheezingPFT reviewed from 06/21/2024LDCT,reviewedsto pped smoking 10/2021uses nocturnal G5bplvnlf in [place] 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 She is not sexually active, but she has had oral candidiasis and worsening of the vision in the left eye, she apparently has history of cataracts. PMHX. COPD, HTN, HIV disease, Hypercholesterolemia. PCP Dr BarberoPulmonologist Dr Maritza Go MD Attn: Accounting,[address] [place], [address], [place] [facility] 03/14/2025 14:10:47 OBGyn Episode No OBEpisode recorded.
--- OUTSIDE RECORDS SUMMARY | 2025-04-12 11:16 | XMS_ITS | Referral Summary ---
Author Organization [facility] Address [address] [place] [phone] Care Team Providers Care Digital Photographer Name Role Phone Donya Mejia Primary Care Provider [phone] Allergies Active Allergy Reactions Criticality Noted Date Comments Meperidine Anaphylaxis High 08/17/2022 [place] Rash Medium 08/17/2022 Medications albuterol HFA (PROVENTIL [...] on file Legal Sex Female 1:28 PM INSTRUMENT TECHNICIAN APPRENTICE Gender Identity Not on file Sexual Orientation Not on file Last Filed Vital Signs Vital Sign Reading Time Taken Comments Blood Pressure - - Pulse - - Temperature - - Respiratory Rate - - Oxygen Saturation - - Inhaled Oxygen Concentration - - Weight 49.9 kg (110 lb) 08/17/2022 12:54 PM INSTRUMENT TECHNICIAN APPRENTICE Height 160 cm (5' 3) 08/17/2022 12:54 PM INSTRUMENT TECHNICIAN APPRENTICE Body Mass Index 19.49 08/17/2022 12:54 PM INSTRUMENT TECHNICIAN APPRENTICE Plan of Treatment Not on file Insurance [facility] Care Teams Digital Photographer Relationship Specialty Start Date End Date Donya Mejia PA [address] [place] [address] PCP - General Physician Maintenance Analyst 03/26/22
--- OUTSIDE RECORDS SUMMARY | 2025-04-12 11:16 | XMS_ITS | Clinical Summary ---
Author Organization [facility] Address [address] [place] [address] Care Team Providers Care Grinder Set Up Operator Thread Name Role Phone Donya Mejia Primary Care Provider [phone] Allergies Active Allergy Reactions Criticality Noted Date Comments Meperidine Anaphylaxis High 08/17/2022 [place] Rash Medium 08/17/2022 Medications albuterol HFA (PROVENTIL [...] on file Legal Sex Female 1:28 PM REFRIGERATING TECHNICIAN Gender Identity Not on file Sexual Orientation Not on file Obstetrics History Last Filed Vital Signs Vital Sign Reading Time Taken Comments Blood Pressure - - Pulse - - Temperature - - Respiratory Rate - - Oxygen Saturation - - Inhaled Oxygen Concentration - - Weight 49.9 kg (110 lb) 08/17/2022 12:54 PM REFRIGERATING TECHNICIAN Height 160 cm (5' 3) 08/17/2022 12:54 PM REFRIGERATING TECHNICIAN Body Mass Index 19.49 08/17/2022 12:54 PM REFRIGERATING TECHNICIAN Plan of Treatment Health Maintenance Due Date [...] series) Influenza Vaccine (Season Ended) 2025 Insurance [facility] [place] [facility] [place] Care Teams Grinder Set Up Operator Thread Relationship Specialty Start Date End Date Donya Mejia PA [address] [place] [address] PCP - General Physician Global Supply Chain Vice President 03/26/22
--- OUTSIDE RECORDS SUMMARY | 2025-04-12 11:16 | XMS_ITS | Continuity of Care Document ---
Author Organization [facility] Address [address] [place] [address] utive [facility] [address] [place] [address] Phone Care Team Providers Care Deburrer Name Role Phone Seamus Quinn Unavailable Unavailable Procedures Procedure Date Eye Exam, New Patient Advance Directives Directive Yes / No Effective Date File Name No Information Encounters Encounter Description Practice Location Reason(s) For Visit Diagnoses Date Provider Providers Copied on Encounter [facility], [address] [place] [address] [address], [place], [place], [id number], [place] tel:[phone] [facility] No Information [address] [facility] [address], [place], [address], [place]. tel:[phone] Family History Family Member Type Diagnosis Age At Onset No Information Payers Payer name Insurance type Covered libertarian ID Authoriza tion(s) Medicaid [place] [id number] Social History Type Description Quantity Date Captured [...]
[2025-04-12 11:18] LABS: Alanine Aminotransferase 25 U/L (6-35); Albumin Level 3.8 g/dL (3.5-5.1); Alkaline Phosphatase 63 U/L (38-126); Anion Gap 6 mmol/L (4-12); Aspartate Amino Transferase 34 U/L (14-36); Bilirubin,Total 0.2 mg/dL (0.2-1.3); Blood Urea Nitrogen 10 mg/dL (7-17); Calcium 8.4 mg/dL (8.4-10.2); Carbon Dioxide 37 mmol/L (22-30); Chloride 92 mmol/L (98-107); Estimated Glomerular Filt Rate > 60; Glucose 104 mg/dL (65-110); Magnesium 1.9 mg/dL (1.6-2.3); Potassium 3.7 mmol/L (3.4-5.0); Sodium 135 mmol/L (137-145); Total Protein 7.5 g/dL (6.3-8.2)
[2025-04-12 11:23] LABS: INR 0.8; Prothrombin Time 11.3 Seconds (11.1-14.7)
[2025-04-12 11:24] LABS: Partial Thromboplastin Time 24.0 Seconds (22.3-36.8)
[2025-04-12] MEDS: KETOROLAC 15 MG/ML VIAL (*BKC) IV PUSH (11:34)
--- NOTE | 2025-04-12 12:07 | ED.SOB ---
HPI - SOB/Dyspnea General Chief Complaint: Shortness of Breath/Dyspnea Stated Complaint: SOB, hx COPD Time Seen by Provider: 04/12/25 10:44 History of Present Illness HPI Narrative: Pt presents with pain in right ribs and productive cough. Pt has COPD and always has some SOB and this is unchanged. Pt denies fever. Pt says her sputum is cheng. Pt denies chills. Related Data Home Medications ?Medication ?Instructions ?Recorded ?Confirmed ?Last Taken ?Type budesonide-formoterol HFA 80 2 puff inhalation BID 03/09/22 04/12/25 04/12/25 History mcg-4.5 mcg/actuation aerosol inhaler (Symbicort) tiotropium bromide 1.25 2 puff inhalation DAILY 07/12/24 04/12/25 04/12/25 History mcg/actuation mist for inhalation (Spiriva Respimat) darunavir 800 mg tablet 800 mg PO DAILY 04/12/25 04/12/25 04/12/25 History emtricitabine 200 mg-tenofovir 1 tablet PO DAILY 04/12/25 04/12/25 04/12/25 History disoproxil fumarate 300 mg tablet (Truvada) ritonavir 100 mg tablet 100 mg PO DAILY 04/12/25 04/12/25 04/12/25 History sodium chloride 0.65 % nasal spray 2 spray intranasal QID PRN nasal 04/12/25 04/12/25 04/12/25 History aerosol ([place] Saline) congestion Allergies Allergy/AdvReac Type Severity Reaction Status Date / Time meperidine Allergy Unknown anaphlaxis Verified 04/12/25 17:57 orange Allergy Unknown Hives Verified 04/12/25 17:57 Review of Systems Review of Systems: All systems reviewed & are unremarkable except as noted in HPI and below PMFSH Past Medical History Medical History Cavernous hemangioma COPD (chronic obstructive pulmonary disease) HIV (human immunodeficiency virus infection) Surgical History Surgical History History of hysterectomy History of tonsillectomy Family History Family History Grandparent Diabetes mellitus Mother Diabetes mellitus Social History Social History Smoking packs per day: 1 Smoking cigarettes per day: 20.0 Years smoked: 55 Smoking pack-years: 55.00 Smoking status: Former smoker Second hand tobacco smoke exposure: Yes Alcohol intake: never Substance use: never Substance use type: does not use Do You Feel Safe in your Home?: Yes Lack of Transportation: No Lack of Food: Never True Current Housing: I Have Housing Concerned About Future Housing: No Difficulty Paying Gas/Electric Bills: No Difficulty Paying for Meds: No Currently Unemployed: No Education: Bachelor's Degree Difficulty w/ Childcare or Family Care: No Spiritual care concerns: No Exam Const: General: healthy appearing and no acute distress Nutritional Appearance: well nourished Orientation/consciousness: patient oriented x3 Limitations: no limitations Chest: Chest palpation & inspection: normal inspection of the chest Resp: Effort & Inspection: normal respiratory effort Auscultation: clear to auscultation bilaterally Cardio: Rate: regular rate Rhythm: regular rhythm GI: GI Palp: Yes Soft to palpation and No Tenderness to palpation present (GI) Auscultation: normal bowel sounds Back/Spine/Pelvis: Back: no CVA tenderness Skin: General skin exam: normal color Wounds: no wounds Neuro: General: patient oriented x3, moves all extremities and no focal motor deficits Cranial nerves: Yes Nystagmus not present Speech: normal speech Extrem: General: normal to inspection and no clubbing, cyanosis or edema Psych: Mental Status: mental status grossly normal Affect: normal affect Attitude: cooperative Course Vital Signs Vital signs: Vital Signs Temperature 97.7 F 04/12/25 10:16 Pulse Rate 96 04/12/25 10:16 Respiratory Rate 21 H 04/12/25 10:16 Blood Pressure 159/90 H 04/12/25 10:16 Pulse Oximetry 97 04/12/25 10:16 Oxygen Delivery Nasal Cannula 04/12/25 10:16 Oxygen Flow Rate 4 04/12/25 10:16 Temperature 99.2 F 04/12/25 14:00 Pulse Rate 89 04/12/25 14:00 Respiratory Rate 20 04/12/25 14:00 Blood Pressure 141/103 H 04/12/25 14:00 Pulse Oximetry 95 04/12/25 14:00 Oxygen Delivery Nasal Cannula 04/12/25 13:55 Oxygen Flow Rate 4 04/12/25 13:55 MDM - SOB/Dyspnea MDM Narrative Medical decision making narrative: Pt here with chest wall pain on right but also productive cough. Pt could have a cracked rib but also ppneumonia or copd exac. will get labs and cxr and treat pain. Pt has pneumonia on cxr. will contact for admission. discussed with Nichole Grossman and agrees to admit. asked to start solmedrol. Lab Data 04/12/25 11:00 04/12/25 10:59 Labs: Lab Results 04/12/25 04/12/25 Range/Units 10:59 11:00 WBC 15.1 H (4.5-10.0) K/mm3 RBC 4.84 (4.2-5.4) M/mm3 Hgb 12.1 (12.0-15.0) g/dL Hct 39.9 (37.0-47.0) % MCV 82.4 (80-100) fl MCH 25.0 L (26-34) pg MCHC 30.3 L (32-36) g/dl RDW 15.2 H (11.5-14.5) % Plt Count 349 (150-375) k/mm3 MPV 9.3 (7.4-10.4) fl Immature Gran % (Auto) 0.7 H (0-0.5) % Neut % (Auto) 85.7 H (45.5-73.1) % Lymph % (Auto) 7.3 L (18.3-44.2) % [place] % (Auto) 5.6 (2.6-8.5) % Eos % (Auto) 0.4 (0-4.4) % Baso % (Auto) 0.3 (0.2-1.2) % Lymph # (Auto) 1.10 (0.9-3.2) K/mm3 [place] # (Auto) 0.9 H (0.1-0.6) K/mm3 Eos # (Auto) 0.1 (0-0.3) K/mm3 Baso # (Auto) 0.0 (0.0-0.1) K/mm3 Abs Immat Gran (auto) 0.10 H (0.00-0.031) K/mm3 Absolute Neuts (auto) 12.9 H (1.3-6.7) K/mm3 Absolute Nucleated RBC 0.000 (0.0-0.012) K/mm3 Nucleated RBC % 0.0 (0.0-0.2) % PT 11.3 (11.1-14.7) Seconds INR 0.8 APTT 24.0 (22.3-36.8) Seconds Sodium 135 L (137-145) mmol/L Potassium 3.7 (3.4-5.0) mmol/L Chloride 92 L (98-107) mmol/L Carbon Dioxide 37 H (22-30) mmol/L Anion Gap 6 (4-12) mmol/L BUN 10 (7-17) mg/dL Creatinine 0.44 L (0.7-1.0) mg/dL Estim Creat Clear Calc Not Reportable Estimated GFR > 60 (59 - ) Glucose 104 (65-110) mg/dL Calcium 8.4 (8.4-10.2) mg/dL Magnesium 1.9 (1.6-2.3) mg/dL Total Bilirubin 0.2 (0.2-1.3) mg/dL AST 34 (14-36) U/L ALT 25 (6-35) U/L Alkaline Phosphatase 63 (38-126) U/L Total Protein 7.5 (6.3-8.2) g/dL Albumin 3.8 (3.5-5.1) g/dL Imaging Data My impression: pneumonia Radiologist's impression: pneumonia Discharge Plan Discharge Clinical Impression: PNA (pneumonia) Patient Disposition: Still a Patient Condition: Stable
--- NOTE | 2025-04-12 12:20 | P.HP_ITS ---
H&P: HPI History of Present Illness Date/Time: 04/12/25 12:20 Chief Complaint: Shortness of breath Narrative: 65-year-old female past medical history of COPD, HIV presents the hospital with increased shortness of breath and productive sputum. Patient states that her breathing has worsened in over the last few days. She states that her breathing treatments at home were not working. She is on 2 L oxygen at home. She denies fever chills. Lab work shows leukocytosis at 15.1, sodium of 135, chloride of 92, carbon dioxide of 37, creatinine of 0.44, chest x-ray shows bilateral pneumonia, patient was started on azithromycin, Rocephin and Solu-Medrol. Review of Systems Review of Systems: 12 systems were reviewed and are negativ e except for as per HPI. [facility] Past Medical History Medical History Cavernous hemangioma COPD (chronic obstructive pulmonary disease) HIV (human immunodeficiency virus infection) Surgical History Surgical History History of hysterectomy History of tonsillectomy Family History Family History Grandparent Diabetes mellitus Mother Diabetes mellitus Social History Social History Smoking packs per day: 1 Smoking cigarettes per day: 20.0 Years smoked: 55 Smoking pack-years: 55.00 Smoking status: Former smoker Second hand tobacco smoke exposure: Yes Alcohol intake: never Substance use: never Substance use type: does not use Do You Feel Safe in your Home?: Yes Lack of Transportation: No Lack of Food: Never True Current Housing: I Have Housing Concerned About Future Housing: No Difficulty Paying Gas/Electric Bills: No Difficulty Paying for Meds: No Currently Unemployed: No Education: Bachelor's Degree Difficulty w/ Childcare or Family Care: No Spiritual care concerns: No Meds Home Medications and Allergies Home Medications ?Medication ?Instructions ?Recorded ?Confirmed ?Type budesonide-formoterol HFA 80 2 puff inhalation BID 03/09/22 04/12/25 History mcg-4.5 mcg/actuation aerosol inhaler (Symbicort) albuterol sulfate 90 mcg/actuation 1 inh inhalation QID PRN shortness 04/06/24 04/12/25 Rx aerosol inhaler of breath or wheezing #6.7 grams ipratropium 0.5 mg-albuterol 3 mg 3 ml inhalation Q6H PRN shortness 04/06/24 04/12/25 Rx (2.5 mg base)/3 mL nebulization of breath or wheezing #90 mL soln losartan 25 mg tablet 25 mg PO DAILY #30 tabs 04/06/24 04/12/25 Rx prednisone 10 mg tablet 10 mg PO DIRECTED #62 tabs 04/06/24 04/12/25 Rx tiotropium bromide 1.25 2 puff inhalation DAILY 07/12/24 04/12/25 History mcg/actuation mist for inhalation (Spiriva Respimat) darunavir 800 mg tablet 800 mg PO DAILY 04/12/25 04/12/25 History emtricitabine 200 mg-tenofovir 1 tablet PO DAILY 04/12/25 04/12/25 History disoproxil fumarate 300 mg tablet (Truvada) ritonavir 100 mg tablet 100 mg PO DAILY 04/12/25 04/12/25 History sodium chloride 0.65 % nasal spray 2 spray intranasal QID PRN nasal 04/12/25 04/12/25 History aerosol ([place] Saline) congestion Allergies Allergy/AdvReac Type Severity Reaction Status Date / Time meperidine Allergy Unknown anaphlaxis Verified 04/12/25 17:57 orange Allergy Unknown Hives Verified 04/12/25 17:57 Vital Signs Vital Signs - 24 hr 04/12/25 10:16 04/12/25 10:21 04/12/25 10:23 Temperature 97.7 F Pulse Rate 96 Respiratory Rate 21 H Blood Pressure 159/90 H Pulse Oximetry 97 83 L 97 Oxygen Delivery Nasal Cannula Nasal Cannula Nasal Cannula Oxygen Flow Rate 4 2 4 04/12/25 10:45 Temperature Pulse Rate 99 Respiratory Rate 20 Blood Pressure 166/92 H Pulse Oximetry 98 Oxygen Delivery Oxygen Flow Rate Exam Narrative: General: well appearing, appears stated age. HEENT: normocephalic, atraumatic. Mucous membranes moist. EOMI, PERRLA, bilateral sclera anicteric, no conjunctival injection. Neck supple without JVD, lymphadenopathy, or bruit. Respiratory: clear to ascultation bilaterally. No rales/rhonic/wheezes. Cardiovascular: Regular rate and rhythm, normal S1-S2 upon ascultation. No m urmurs, rubs, or clicks. PMI is nondisplaced, capillary refill less than 3 second. Abdomen: Soft, round, no pulsatile masses, nondistended and nontender. No rebound, no guarding. No CVA tenderness, no hepatosplenomegaly. Bowel sounds present to all four quadrants. No high pitch or tinkling sounds, resonant to percussion. Extremities: No cyanosis, clubbing, or edema present. Pulses are palpable 2/2. Active ROM to all four extremities. Neuro: Alert and orientated x 4. PERRLA. Cranial nerves 2-12 intact without focal deficit. Skin: Warm, dry, and intact, without rash, erythema, or lesion. Psych: pleasant, cooperative, normal speech, normal affect, no hallucinations, no dysarthia H&P: Results Labs Labs: Short CBC 04/12/25 Range/Units 11:00 WBC 15.1 H (4.5-10.0) K/mm3 Hgb 12.1 (12.0-15.0) g/dL Hct 39.9 (37.0-47.0) % Plt Count 349 (150-375) k/mm3 BMP 04/12/25 10:59 Sodium 135 L Potassium 3.7 Chloride 92 L Carbon Dioxide 37 H BUN 10 Creatinine 0.44 L Glucose 104 Calcium 8.4 Liver Function 04/12/25 Range/Units 10:59 Total Bilirubin 0.2 (0.2-1.3) mg/dL AST 34 (14-36) U/L ALT 25 (6-35) U/L Alkaline Phosphatase 63 (38-126) U/L Albumin 3.8 (3.5-5.1) g/dL Assessment and Plan Assessment and plan (1) COPD exacerbation: Code(s): J44.1 - Chronic obstructive pulmonary disease with (acute) exacerbation Status: Acute Assessment and Plan: Solu-Medrol Guaifenesin Breathing treatment Wean oxygen as able Patient is on home prednisone of 10 mg will increase to 40 while in hospital (2) PNA (pneumonia): Code(s): J18.9 - Pneumonia, unspecified organism Status: Acute Assessment and Plan: Rocephin and azithromycin (3) Hypoxic respiratory failure: Code(s): J96.91 - Respiratory failure, unspecified with hypoxia Status: Acute Assessment and Plan: See above (4) HIV (human immunodeficiency virus infection): Code(s): B20 - Human immunodeficiency virus [HIV] disease Status: Acute Assessment and Plan: Continue antivirals Quality VTE Prophylaxis VTE prophylaxis: mechanical ordered and pharmacologic ordered Hospitalist MIPS Advance Care Plan I have confirmed that the patient's Advanced Care Plan is present, code status is documented, or surrogate decision maker is listed in patient medical record.: Yes Medication Reconciliation I have utilized all available resources to obtain, update and review the patients current medications (includes all prescriptions, OTC, herbals, cannabis, and nutritional supplements).: Yes
[2025-04-12] MEDS: cefTRIAXone 1 GM in SODIUM CHLORIDE 0.9% IV 50 ML 100 ML IVPB (13:03)
--- NOTE | 2025-04-12 13:49 | PC.NURSE ---
report called and given to Ivory FRANCIS at 1344, requested per insulation cupola charger.
--- NOTE | 2025-04-12 13:56 | ADMGEN ---
This patient, Roxanne Davey, was admitted to [facility] Surg Room 324-02. Patient/family oriented to hospital policies and general routines including ID bracelet, bed and alarms, visiting hours, pain management, procedures, bathroom and other care routines, personal items, smoking policy, room service/diet, and visiting hours. Information on how to activate the Rapid Response Team has been discussed. Patient/Family are encouraged to report perceived risks to care and to ask questions if they do not understand what they are told or what they should do.
--- OUTSIDE RECORDS SUMMARY | 2025-04-12 13:59 | XMS_ITS | Continuity of Care Document ---
Author Organization [facility] Address [address] [place] [address] utive [facility] [address] [place] [address] Phone Care Team Providers Care Vessel Scrapper Name Role Phone Seamus Quinn Unavailable Unavailable Procedures Procedure Date Eye Exam, New Patient Advance Directives Directive Yes / No Effective Date File Name No Information Encounters Encounter Description Practice Location Reason(s) For Visit Diagnoses Date Provider Providers Copied on Encounter [facility], [address] [place] [address] [address], [place], [place], [address], [place] tel:[phone] SEC [facility] No Information [address] [facility] [address], [place], [address], [place]. tel:[phone] Family History Family Member Type Diagnosis Age At Onset No Information Payers Payer name Insurance type Covered constitution party ID Authoriza tion(s) [place] [id number] Social History Type Description Quantity Date Captured [...]
--- OUTSIDE RECORDS SUMMARY | 2025-04-12 13:59 | XMS_ITS | Referral Summary ---
Author Organization [facility] Address [address] [place] [address] Care Team Providers Care Small Business Banking Officer Name Role Phone Donya Mejia Primary Care Provider [phone] Allergies Active Allergy Reactions Criticality Noted Date Comments Meperidine Anaphylaxis High 08/17/2022 [place] Rash Medium 08/17/2022 Medications albuterol HFA (PROVENTIL [...] on file Legal Sex Female 1:28 PM CLINICAL IMMUNOLOGIST Gender Identity Not on file Sexual Orientation Not on file Last Filed Vital Signs Vital Sign Reading Time Taken Comments Blood Pressure - - Pulse - - Temperature - - Respiratory Rate - - Oxygen Saturation - - Inhaled Oxygen Concentration - - Weight 49.9 kg (110 lb) 08/17/2022 12:54 PM CLINICAL IMMUNOLOGIST Height 160 cm (5' 3) 08/17/2022 12:54 PM CLINICAL IMMUNOLOGIST Body Mass Index 19.49 08/17/2022 12:54 PM CLINICAL IMMUNOLOGIST Plan of Treatment Not on file Insurance [facility] Care Teams Small Business Banking Officer Relationship Specialty Start Date End Date Donya Mejia PA [address] [place] [phone] PCP - General Physician Research Editor 03/26/22
--- OUTSIDE RECORDS SUMMARY | 2025-04-12 13:59 | XMS_ITS | Clinical Summary ---
Author Organization [facility] Address [address] [place] [address] Care Team Providers Care Rail Transportation Operator Name Role Phone Donya Mejia Primary Care Provider [phone] Allergies Active Allergy Reactions Criticality Noted Date Comments Meperidine Anaphylaxis High 08/17/2022 [place] Rash Medium 08/17/2022 Medications albuterol HFA (PROVENTIL [...] on file Legal Sex Female 1:28 PM VARNISH MIXER Gender Identity Not on file Sexual Orientation Not on file Obstetrics History Last Filed Vital Signs Vital Sign Reading Time Taken Comments Blood Pressure - - Pulse - - Temperature - - Respiratory Rate - - Oxygen Saturation - - Inhaled Oxygen Concentration - - Weight 49.9 kg (110 lb) 08/17/2022 12:54 PM VARNISH MIXER Height 160 cm (5' 3) 08/17/2022 12:54 PM VARNISH MIXER Body Mass Index 19.49 08/17/2022 12:54 PM VARNISH MIXER Plan of Treatment Health Maintenance Due Date [...] series) Influenza Vaccine (Season Ended) 2025 Insurance [facility] [place] [facility] [place] Care Teams Rail Transportation Operator Relationship Specialty Start Date End Date Donya Mejia PA [address] [place] [address] PCP - General Physician Can Runner 03/26/22
--- OUTSIDE RECORDS SUMMARY | 2025-04-12 14:00 | XMS_ITS | Continuity of Care Document ---
Author Organization [facility] Address [address] [place] [address] utive [facility] [address] [place] [address] Phone Care Team Providers Care Turbo Operator Name Role Phone Seamus Quinn Unavailable Unavailable Procedures Procedure Date Eye Exam, New Patient Advance Directives Directive Yes / No Effective Date File Name No Information Encounters Encounter Description Practice Location Reason(s) For Visit Diagnoses Date Provider Providers Copied on Encounter [facility], [address] [place] [address] [address], [place], [place], [id number], [place] tel:[phone] SEC [facility] No Information [address] [facility] [address], [place], [address], [place]. tel:[phone] Family History Family Member Type Diagnosis Age At Onset No Information Payers Payer name Insurance type Covered libertarian ID Authoriza tion(s) [place] [id number] Social History Type Description Quantity Date Captured [...]
--- NOTE | 2025-04-12 14:57 | PHAR ---
home meds verified Truvada 200/300mg 1 daily ritonavir 100mg 1 daily Darunavir 800mg 1 daily
[2025-04-12] MEDS: AZITHROMYCIN IV 500 MG in SODIUM CHLORIDE 0.9% IV 250 ML IVPB (15:14)
[2025-04-12] MEDS: IPRATROPIUM 0.5 MG/ALBUTEROL SULFATE 2.5 MG AMPUL.NEB 3 ML INHALATION (19:44)
[2025-04-12] MEDS: FLUTICASONE/SALMETEROL 45-21 MCG INHALER 1 PUFF 2 PUFF INHALATION (19:45)
[2025-04-12] MEDS: guaiFENesin 12 HR 600 MG TABCR 1200 MG PO (20:04)
[2025-04-13] VITALS (14 sets, daily range): BP systolic 138–146; BP diastolic 76–90; PULSE 74–92; RESP 16–20; TEMP 35.8–36.4; O2SAT 94–98; BMI 16.4
[2025-04-13] MEDS: IPRATROPIUM 0.5 MG/ALBUTEROL SULFATE 2.5 MG AMPUL.NEB 3 ML INHALATION ×4 (01:48→21:15)
[2025-04-13 06:23] LABS: Hematocrit 37.5 % (37.0-47.0); Hemoglobin 11.3 g/dL (12.0-15.0); Immature Granulocyte Percent A 1.1 % (0-0.5); Lymphocytes Absolute Auto 0.35 K/mm3 (0.9-3.2); Mean Corpuscular HGB Conc 30.1 g/dl (32-36); Mean Corpuscular Hemoglobin 25.5 pg (26-34); Mean Corpuscular Volume 84.5 fl (80-100); Nucleated Red Blood Cells Absolute Auto 0.000 K/mm3 (0.0-0.012); Nucleated Red Blood Cells Perc 0.0 % (0.0-0.2); Platelet Count Result 339 k/mm3 (150-375); Red Blood Count 4.44 M/mm3 (4.2-5.4); White Blood Count 16.0 K/mm3 (4.5-10.0)
[2025-04-13 06:41] LABS: Anion Gap 5 mmol/L (4-12); Blood Urea Nitrogen 10 mg/dL (7-17); Calcium 8.6 mg/dL (8.4-10.2); Carbon Dioxide 33 mmol/L (22-30); Chloride 95 mmol/L (98-107); Estimated CRCL calculation 70 ml/min; Estimated Glomerular Filt Rate > 60; Glucose 192 mg/dL (65-110); Potassium 4.0 mmol/L (3.4-5.0); Sodium 133 mmol/L (137-145)
[2025-04-13] MEDS: guaiFENesin 12 HR 600 MG TABCR 1200 MG PO ×2 (08:39→21:23)
[2025-04-13] MEDS: LOSARTAN POTASSIUM 25 MG TABLET PO (08:39)
[2025-04-13] MEDS: DARUNAVIR 800 MG 800 EACH PO (08:42)
[2025-04-13] MEDS: EMTRICITABINE TENOFOVIR 1 EACH PO (08:42)
[2025-04-13] MEDS: RITONAVIR 100 MG 100 EACH PO (08:43)
[2025-04-13] MEDS: FLUTICASONE/SALMETEROL 45-21 MCG INHALER 1 PUFF 2 PUFF INHALATION ×2 (08:45→21:30)
--- NOTE | 2025-04-13 09:00 | P.CDI_ITS ---
CDI Query Clarification Request Please review the clinical information below and clarify the respiratory diagn osis the patient is being treated for: Hypoxia or hypoxemia without respiratory failure Respiratory distress without respiratory failure Acute respiratory failure with hypoxia Acute respiratory failure with hypercapnia Acute respiratory failure with hypoxia and hypercapnia Acute on chronic respiratory failure with hypoxia Acute on chronic respiratory failure with hypercapnia Acute on chronic respiratory failure with hypoxia and hypercapnia Acute respiratory distress syndrome (ARDS) Chronic respiratory failure with hypoxia Chronic respiratory failure with hypercapnia Chronic respiratory failure with hypoxia and hypercapnia Other explanation clinical findings, please specify Unable to determine The medical chart reflects the following: (1) COPD exacerbation: Code(s): J44.1 - Chronic obstructive pulmonary disease with (acute) exacerbation Status: Acute Assessment and Plan: Solu-Medrol Guaifenesin Breathing treatment Wean oxygen as able Patient is on home prednisone of 10 mg will increase to 40 while in hospital (2) PNA (pneumonia): Code(s): J18.9 - Pneumonia, unspecified organism Status: Acute Assessment and Plan: Rocephin and azithromycin (3) Hypoxic respiratory failure: Code(s): J96.91 - Respiratory failure, unspecified with hypoxia Status: Acute Assessment and Plan: See above 7/10 o2 sat drop to 83% on 2 L NC currently 4L 02 NC <Karine Kim RN - Last Filed: 04/13/25 09:03> Provider Comments Acute on chronic respiratory failure with hypoxia <Shane Barahona MD - Last Filed: 04/16/25 16:05>
[2025-04-13] MEDS: cefTRIAXone 1 GM in SODIUM CHLORIDE 0.9% IV 50 ML 100 ML IVPB (14:02)
[2025-04-13] MEDS: AZITHROMYCIN IV 500 MG in SODIUM CHLORIDE 0.9% IV 250 ML IVPB (14:47)
--- NOTE | 2025-04-13 15:24 | P.PNIM_ITS ---
Progress Note: A&P Assessment and Plan (1) COPD exacerbation: Code(s): J44.1 - Chronic obstructive pulmonary disease with (acute) exacerbation Status: Acute Assessment and Plan: Solu-Medrol Guaifenesin Breathing treatment Wean oxygen as able Patient is on home prednisone of 10 mg will increase to 40 while in hospital (2) PNA (pneumonia): Code(s): J18.9 - Pneumonia, unspecified organism Status: Acute Assessment and Plan: Rocephin and azithromycin (3) Hypoxic respiratory failure: Code(s): J96.91 - Respiratory failure, unspecified with hypoxia Status: Acute Assessment and Plan: See above (4) HIV (human immunodeficiency virus infection): Code(s): B20 - Human immunodeficiency virus [HIV] disease Status: Acute Assessment and Plan: Continue antivirals Subjective Date/time seen: 04/13/25 15:24 Interval history: No overnight events. Feeling a little better. Shortness of breath with exertion. Cough. Chest pain on the right side is getting better Review of Systems Review of Systems: All systems reviewed & are unremarkable except as noted in HPI and below Exam Narrative: General: well appearing, appears stated age. HEENT: normocephalic, atraumatic. Mucous membranes moist. EOMI, PERRLA Respiratory: clear to ascultation bilaterally. No rales/rhonic/wheezes. Cardiovascular: Regular rate and rhythm, normal S1-S2 upon ascultation. No murmurs, rubs, or clicks. Abdomen: Soft, round, no pulsatile masses, nondistended and nontender. No rebo und, no guarding. Extremities: No cyanosis, clubbing, or edema present. Pulses are palpable 2/2. Active ROM to all four extremities. Neuro: Alert and orientated x 4. PERRLA. Cranial nerves 2-12 intact without focal deficit. Skin: Warm, dry, and intact, without rash, erythema, or lesion. Psych: pleasant, cooperative, normal speech, normal affect, no hallucinations, no dysarthia Objective Data Vital Signs Vital Signs: Vital Signs - 24 hr 04/12/25 18:36 04/12/25 19:51 04/12/25 19:51 Temperature Pulse Rate 74 83 Respiratory Rate 20 20 Blood Pressure 142/88 H Pulse Oximetry 98 96 Oxygen Delivery Nasal Cannula Oxygen Flow Rate 4 04/12/25 19:56 04/12/25 20:00 04/12/25 20:40 Temperature 97.1 F L Pulse Rate 87 78 Respiratory Rate 20 18 Blood Pressure 149/72 H Pulse Oximetry 97 97 Oxygen Delivery Nasal Cannula Oxygen Flow Rate 4 04/13/25 01:50 04/13/25 01:55 04/13/25 05:30 Temperature 96.8 F L Pulse Rate 74 77 83 Respiratory Rate 18 18 20 Blood Pressure 138/90 Pulse Oximetry 97 Oxygen Delivery Oxygen Flow Rate 04/13/25 08:10 04/13/25 08:45 04/13/25 08:45 Temperature Pulse Rate Respiratory Rate Blood Pressure Pulse Oximetry 98 94 96 Oxygen Delivery Nasal Cannula Nasal Cannula Nasal Cannula Oxygen Flow Rate 3 2 2 04/13/25 08:50 04/13/25 14:02 04/13/25 14:27 Temperature 96.5 F L Pulse Rate 82 85 77 Respiratory Rate 16 18 Blood Pressure 142/76 H Pulse Oximetry 97 Oxygen Delivery Oxygen Flow Rate 04/13/25 14:38 Temperature Pulse Rate 77 Respiratory Rate 18 Blood Pressure Pulse Oximetry Oxygen Delivery Oxygen Flow Rate Intake/Output Intake/Output: Intake & Output 04/10/25 04/11/25 04/12/25 04/13/25 23:59 23:59 23:59 23:59 Intake Total 1080 1380 Balance 1080 1380 Meds/Results Medications: Active Medications Generic Name Dose Route Start Last Admin Trade Name Freq PRN Reason Stop Dose Admin Acetaminophen 650 mg 04/12/25 14:20 Acetaminophen 325 Mg Tablet PO Q4H PRN Mild Pain (1-3) or Fever Hydrocodone Bitart/Acetaminophen 1 tab 04/12/25 14:20 Hydrocodone/Acetaminophen (*Crx) 5-325 Mg Tablet PO Q4H PRN Moderate Pain (4-6) Albuterol/Ipratropium 3 ml 04/12/25 20:00 04/13/25 14:34 Ipratropium 0.5 Mg/Albuterol Sulfate 2.5 Mg Ampul.Neb 3 Ml INHALATION 3 ml Q6HRT SOHAM Administration Docusate Sodium 100 mg 04/12/25 21:00 04/13/25 08:41 Docusate Sodium 100 Mg Capsule PO Not Given Q12HR SOHAM Enoxaparin Sodium 40 mg 04/13/25 09:00 04/13/25 08:41 Enoxaparin 40 Mg/0.4 Ml Syringe SUB-Q Not Given DAILY SOHAM Guaifenesin 1,200 mg 04/12/25 21:00 04/13/25 08:39 Guaifenesin 12 Hr 600 Mg Tabcr PO 1,200 mg Q12HR SOHAM Administration Azithromycin 500 mg/ Sodium 250 mls @ 250 mls/hr 04/13/25 15:00 04/13/25 14:47 Chloride IVPB 250 mls/hr Q24H SOHAM Administration Ceftriaxone Sodium 1 gm/ 50 mls @ 100 mls/hr 04/13/25 13:00 04/13/25 14:02 Sodium Chloride IVPB 100 mls/hr Q24H SOHAM Administration Losartan Potassium 25 mg 04/13/25 09:00 04/13/25 08:39 Losartan Potassium 25 Mg Tablet PO 25 mg DAILY SOHAM Administration Home Med (Darunavir 800 mg 04/13/25 09:00 04/13/25 08:42 800 Mg Tablet) PO 05/13/25 08:59 800 mg DAILY SOHAM Administration Home Med ( 1 tablet 04/13/25 09:00 04/13/25 08:42 Emtricitabine- PO 05/13/25 08:59 1 tablet Tenofovir (Tdf) [ DAILY SOHAM Administration Truvada] 200-300 Mg Tablet) Home Med (Ritonavir 100 mg 04/13/25 09:00 04/13/25 08:43 100 Mg) PO 05/13/25 08:59 100 mg DAILY SOHAM Administration Prednisone 40 mg 04/13/25 08:00 04/13/25 08:40 Prednisone 20 Mg Tablet PO 40 mg DAILY@0800 SOHAM Administration Fluticasone/Salmeterol 2 puff 04/12/25 20:00 04/13/25 08:45 Fluticasone/Salmeterol 45-21 Mcg Inhaler 1 Puff INHALATION 2 puff Q12HRT SOHAM Administration Umeclidinium [place] 1 puff 04/13/25 08:00 Umeclidinium [place] 62.5 Mcg Ellipta INHALATION [facility] Radiology Results: ITS Impressions Chest X-Ray 04/12/25 11:45 IMPRESSION: Findings concerning for bilateral pneumonia number in right midlung zone and left lung base), as detailed above. Short-term follow-up chest radiograph is recommended after appropriate clinical therapy. Labs Labs: Laboratory Results - last 24 hr 04/13/25 05:41 WBC 16.0 H RBC 4.44 Hgb 11.3 L Hct 37.5 MCV 84.5 MCH 25.5 L MCHC 30.1 L RDW 15.3 H Plt Count 339 MPV 9.4 Immature Gran % (Auto) 1.1 H Neut % (Auto) 95.0 H Lymph % (Auto) 2.2 L [place] % (Auto) 1.6 L Eos % (Auto) 0.0 Baso % (Auto) 0.1 L Lymph # (Auto) 0.35 L [place] # (Auto) 0.3 Eos # (Auto) 0.0 Baso # (Auto) 0.0 Abs Immat Gran (auto) 0.17 H Absolute Neuts (auto) 15.2 H Absolute Nucleated RBC 0.000 Nucleated RBC % 0.0 Sodium 133 L Potassium 4.0 Chloride 95 L Carbon Dioxide 33 H Anion Gap 5 BUN 10 Creatinine 0.45 L Estim Creat Clear Calc 70 Estimated GFR > 60 Glucose 192 H Calcium 8.6
[2025-04-13] MEDS: DOCUSATE SODIUM 100 MG CAPSULE PO (21:23)
[2025-04-14] VITALS (14 sets, daily range): BP systolic 148–184; BP diastolic 74–94; PULSE 85–102; RESP 16–24; TEMP 36–36.2; O2SAT 92–97
[2025-04-14] MEDS: IPRATROPIUM 0.5 MG/ALBUTEROL SULFATE 2.5 MG AMPUL.NEB 3 ML INHALATION ×4 (02:03→20:32)
[2025-04-14 06:41] LABS: Hematocrit 34.4 % (37.0-47.0); Hemoglobin 10.3 g/dL (12.0-15.0); Immature Granulocyte Percent A 1.0 % (0-0.5); Lymphocytes Absolute Auto 1.16 K/mm3 (0.9-3.2); Mean Corpuscular HGB Conc 29.9 g/dl (32-36); Mean Corpuscular Hemoglobin 25.1 pg (26-34); Mean Corpuscular Volume 83.7 fl (80-100); Nucleated Red Blood Cells Absolute Auto 0.000 K/mm3 (0.0-0.012); Nucleated Red Blood Cells Perc 0.0 % (0.0-0.2); Platelet Count Result 326 k/mm3 (150-375); Red Blood Count 4.11 M/mm3 (4.2-5.4); White Blood Count 15.1 K/mm3 (4.5-10.0)
[2025-04-14 07:07] LABS: Alanine Aminotransferase 18 U/L (6-35); Albumin Level 3.0 g/dL (3.5-5.1); Alkaline Phosphatase 52 U/L (38-126); Anion Gap 3 mmol/L (4-12); Aspartate Amino Transferase 30 U/L (14-36); Bilirubin,Total < 0.1 mg/dL (0.2-1.3); Blood Urea Nitrogen 10 mg/dL (7-17); Calcium 8.2 mg/dL (8.4-10.2); Carbon Dioxide 35 mmol/L (22-30); Chloride 95 mmol/L (98-107); Estimated CRCL calculation 77 ml/min; Estimated Glomerular Filt Rate > 60; Glucose 112 mg/dL (65-110); Magnesium 2.0 mg/dL (1.6-2.3); Potassium 4.3 mmol/L (3.4-5.0); Sodium 133 mmol/L (137-145); Total Protein 6.1 g/dL (6.3-8.2)
[2025-04-14 07:40] LABS: Hypochromasia 1+
[2025-04-14 07:41] LABS: Schistocytes None Seen
[2025-04-14] MEDS: guaiFENesin 12 HR 600 MG TABCR 1200 MG PO ×2 (08:20→21:24)
[2025-04-14] MEDS: LOSARTAN POTASSIUM 25 MG TABLET PO (08:20)
[2025-04-14] MEDS: DOCUSATE SODIUM 100 MG CAPSULE PO (08:20)
[2025-04-14] MEDS: DARUNAVIR 800 MG 800 EACH PO (08:21)
[2025-04-14] MEDS: EMTRICITABINE TENOFOVIR 1 EACH PO (08:21)
[2025-04-14] MEDS: RITONAVIR 100 MG 100 EACH PO (08:22)
[2025-04-14] MEDS: FLUTICASONE/SALMETEROL 45-21 MCG INHALER 1 PUFF 2 PUFF INHALATION ×2 (09:00→20:32)
[2025-04-14] MEDS: UMECLIDINIUM BROMIDE 62.5 MCG ELLIPTA 1 PUFF INHALATION (09:04)
--- NOTE | 2025-04-14 12:40 | P.PNIM_ITS ---
Progress Note: A&P Assessment and Plan (1) COPD exacerbation: Code(s): J44.1 - Chronic obstructive pulmonary disease with (acute) exacerbation Status: Acute Assessment and Plan: Solu-Medrol Guaifenesin Breathing treatment Wean oxygen as able Patient is on home prednisone of 10 mg will increase to 40 while in hospital (2) PNA (pneumonia): Code(s): J18.9 - Pneumonia, unspecified organism Status: Acute Assessment and Plan: Rocephin and azithromycin (3) Hypoxic respiratory failure: Code(s): J96.91 - Respiratory failure, unspecified with hypoxia Status: Acute Assessment and Plan: See above (4) HIV (human immunodeficiency virus infection): Code(s): B20 - Human immunodeficiency virus [HIV] disease Status: Acute Assessment and Plan: Continue antivirals Subjective Date/time seen: 04/14/25 12:40 Interval history: Having some difficulty breathing today. This is with exertion. Still has some cough. Denies any chest pain. Review of Systems Review of Systems: All systems reviewed & are unremarkable except as noted in HPI and below Exam Narrative: General: well appearing, appears stated age. HEENT: normocephalic, atraumatic. Mucous membranes moist. EOMI, PERRLA Respiratory: clear to ascultation bilaterally. No rales/rhonic/wheezes. Cardiovascular: Regular rate and rhythm, normal S1-S2 upon ascultation. No murmurs, rubs, or clicks. Abdomen: Soft, round, no pulsatile masses, nondistended and nontender. No rebound, no guarding. Extremities: No cyanosis, clubbing, or edema present. Pulses are palpable 2/2. Active ROM to all four extremities. Neuro: Alert and orientated x 4. PERRLA. Cranial nerves 2-12 intact without focal deficit. Skin: Warm, dry, and intact, without rash, erythema, or lesion. Psych: pleasant, cooperative, normal speech, normal affect, no hallucinations, no dysarthia Objective Data Vital Signs Vital Signs: Vital Signs - 24 hr 04/13/25 14:02 04/13/25 14:27 04/13/25 14:38 Temperature 96.5 F L Pulse Rate 85 77 77 Respiratory Rate 16 18 18 Blood Pressure 142/76 H Pulse Oximetry 97 Oxygen Delivery Oxygen Flow Rate 04/13/25 20:00 04/13/25 20:53 04/13/25 21:15 Temperature 97.6 F Pulse Rate 89 89 Respiratory Rate 18 20 Blood Pressure 146/87 H Pulse Oximetry 94 97 Oxygen Delivery Nasal Cannula Oxygen Flow Rate 3 04/13/25 21:22 04/13/25 21:36 04/14/25 02:03 Temperature Pulse Rate 92 89 90 Respiratory Rate 20 20 16 Blood Pressure Pulse Oximetry 94 Oxygen Delivery Nasal Cannula Oxygen Flow Rate 3 04/14/25 02:10 04/14/25 02:10 04/14/25 05:00 Temperature 96.8 F L Pulse Rate 89 90 85 Respiratory Rate 18 16 16 Blood Pressure 148/85 H Pulse Oximetry 96 96 Oxygen Delivery Nasal Cannula Oxygen Flow Rate 2 04/14/25 08:15 04/14/25 09:00 04/14/25 09:00 Temperature Pulse Rate 94 Respiratory Rate 20 Blood Pressure Pulse Oximetry 93 92 Oxygen Delivery Nasal Cannula Nasal Cannula Oxygen Flow Rate 3 2 04/14/25 09:11 Temperature Pulse Rate 102 H Respiratory Rate 24 H Blood Pressure Pulse Oximetry Oxygen Delivery Oxygen Flow Rate Intake/Output Intake/Output: Intake & Output 04/11/25 04/12/25 04/13/25 04/14/25 23:59 23:59 23:59 23:59 Intake Total 1080 2170 740 Balance 1080 2170 740 Meds/Results Medications: Active Medications Generic Name Dose Route Start Last Admin Trade Name Freq PRN Reason Stop Dose Admin Acetaminophen 650 mg 04/12/25 14:20 Acetaminophen 325 Mg Tablet PO Q4H PRN Mild Pain (1-3) or Fever Hydrocodone Bitart/Acetaminophen 1 tab 04/12/25 14:20 Hydrocodone/Acetaminophen (*Crx) 5-325 Mg Tablet PO Q4H PRN Moderate Pain (4-6) Albuterol/Ipratropium 3 ml 04/12/25 20:00 04/14/25 09:00 Ipratropium 0.5 Mg/Albuterol Sulfate 2.5 Mg Ampul.Neb 3 Ml INHALATION 3 ml Q6HRT SOHAM Administration Benzocaine 1 lozenge 04/14/25 12:23 Benzocaine/Menthol (*Bkc) 18 Ea Lozenge PO PRN PRN Cough Docusate Sodium 100 mg 04/12/25 21:00 04/14/25 08:20 Docusate Sodium 100 Mg Capsule PO 100 mg Q12HR SOHAM Administration Enoxaparin Sodium 40 mg 04/13/25 09:00 04/14/25 08:22 Enoxaparin 40 Mg/0.4 Ml Syringe SUB-Q Not Given DAILY SOHAM Guaifenesin 1,200 mg 04/12/25 21:00 04/14/25 08:20 Guaifenesin 12 Hr 600 Mg Tabcr PO 1,200 mg Q12HR SOHAM Administration Azithromycin 500 mg/ Sodium 250 mls @ 250 mls/hr 04/13/25 15:00 04/13/25 14:47 Chloride IVPB 250 mls/hr Q24H SOHAM Administration Ceftriaxone Sodium 1 gm/ 50 mls @ 100 mls/hr 04/13/25 13:00 04/13/25 14:02 Sodium Chloride IVPB 100 mls/hr Q24H SOHAM Administration Losartan Potassium 25 mg 04/13/25 09:00 04/14/25 08:20 Losartan Potassium 25 Mg Tablet PO 25 mg DAILY SOHAM Administration Home Med (Darunavir 800 mg 04/13/25 09:00 04/14/25 08:21 800 Mg Tablet) PO 05/13/25 08:59 800 mg DAILY SOHAM Administration Home Med ( 1 tablet 04/13/25 09:00 04/14/25 08:21 Emtricitabine- PO 05/13/25 08:59 1 tablet Tenofovir (Tdf) [ DAILY SOHAM Administration Truvada] 200-300 Mg Tablet) Home Med (Ritonavir 100 mg 04/13/25 09:00 04/14/25 08:22 100 Mg) PO 05/13/25 08:59 100 mg DAILY SOHAM Administration Prednisone 40 mg 04/13/25 08:00 04/14/25 08:20 Prednisone 20 Mg Tablet PO 40 mg DAILY@0800 SOHAM Administration Fluticasone/Salmeterol 2 puff 04/12/25 20:00 04/14/25 09:00 Fluticasone/Salmeterol 45-21 Mcg Inhaler 1 Puff INHALATION 2 puff Q12HRT SOHAM Administration Umeclidinium [place] 1 puff 04/13/25 08:00 04/14/25 09:04 Umeclidinium [place] 62.5 Mcg Ellipta INHALATION 1 puff DAILYRT SOHAM Administration Radiology Results: ITS Impressions Chest X-Ray 04/12/25 11:45 IMPRESSION: Findings concerning for bilateral pneumonia number in right midlung zone and left lung base), as detailed above. Short-term follow-up chest radiograph is recommended after appropriate clinical therapy. Labs Labs: Laboratory Results - last 24 hr 04/13/25 04/14/25 16:52 05:57 WBC 15.1 H RBC 4.11 L Hgb 10.3 L Hct 34.4 L MCV 83.7 MCH 25.1 L MCHC 29.9 L RDW 15.5 H Plt Count 326 MPV 9.4 Immature Gran % (Auto) 1.0 H Neut % (Auto) 86.6 H Lymph % (Auto) 7.7 L [place] % (Auto) 4.6 Eos % (Auto) 0.0 Baso % (Auto) 0.1 L Lymph # (Auto) 1.16 [place] # (Auto) 0.7 H Eos # (Auto) 0.0 Baso # (Auto) 0.0 Abs Immat Gran (auto) 0.15 H Absolute Neuts (auto) 13.1 H Absolute Nucleated RBC 0.000 Band Neutrophils % Not Reportable Nucleated RBC % 0.0 Platelet Estimate Adequate Hypochromasia 1+ Schistocytes None seen Sodium 133 L Potassium 4.3 Chloride 95 L Carbon Dioxide 35 H Anion Gap 3 L BUN 10 Creatinine 0.40 L Estim Creat Clear Calc 77 Estimated GFR > 60 Glucose 112 H Calcium 8.2 L Magnesium 2.0 Total Bilirubin < 0.1 L AST 30 ALT 18 Alkaline Phosphatase 52 Total Protein 6.1 L Albumin 3.0 L Absolute Lymphocytes Cancelled % CD4 Cells Cancelled Absolute CD4 Count Cancelled
[2025-04-14] MEDS: cefTRIAXone 1 GM in SODIUM CHLORIDE 0.9% IV 50 ML 100 ML IVPB (13:39)
[2025-04-14] MEDS: BENZOCAINE/MENTHOL (*BKC) 18 EA LOZENGE 1 LOZENGE PO (13:53)
[2025-04-14] MEDS: AZITHROMYCIN IV 500 MG in SODIUM CHLORIDE 0.9% IV 250 ML IVPB (14:41)
[2025-04-15] VITALS (13 sets, daily range): BP systolic 147–185; BP diastolic 73–92; PULSE 82–107; RESP 16–20; TEMP 36.4–36.6; O2SAT 86–98
[2025-04-15] MEDS: IPRATROPIUM 0.5 MG/ALBUTEROL SULFATE 2.5 MG AMPUL.NEB 3 ML INHALATION ×4 (03:09→20:17)
[2025-04-15 06:49] LABS: Hematocrit 36.9 % (37.0-47.0); Hemoglobin 11.0 g/dL (12.0-15.0); Immature Granulocyte Percent A 0.8 % (0-0.5); Lymphocytes Absolute Auto 2.00 K/mm3 (0.9-3.2); Mean Corpuscular HGB Conc 29.8 g/dl (32-36); Mean Corpuscular Hemoglobin 25.1 pg (26-34); Mean Corpuscular Volume 84.2 fl (80-100); Nucleated Red Blood Cells Absolute Auto 0.000 K/mm3 (0.0-0.012); Nucleated Red Blood Cells Perc 0.0 % (0.0-0.2); Platelet Count Result 314 k/mm3 (150-375); Red Blood Count 4.38 M/mm3 (4.2-5.4); White Blood Count 9.0 K/mm3 (4.5-10.0)
[2025-04-15 07:06] LABS: Alanine Aminotransferase 19 U/L (6-35); Albumin Level 3.1 g/dL (3.5-5.1); Alkaline Phosphatase 49 U/L (38-126); Anion Gap 3 mmol/L (4-12); Aspartate Amino Transferase 25 U/L (14-36); Bilirubin,Total < 0.1 mg/dL (0.2-1.3); Blood Urea Nitrogen 11 mg/dL (7-17); Calcium 8.1 mg/dL (8.4-10.2); Carbon Dioxide 39 mmol/L (22-30); Chloride 93 mmol/L (98-107); Estimated CRCL calculation 81 ml/min; Estimated Glomerular Filt Rate > 60; Glucose 89 mg/dL (65-110); Magnesium 2.3 mg/dL (1.6-2.3); Potassium 4.6 mmol/L (3.4-5.0); Sodium 135 mmol/L (137-145); Total Protein 6.2 g/dL (6.3-8.2)
[2025-04-15 07:19] LABS: Hypochromasia 1+; Schistocytes None Seen
[2025-04-15] MEDS: FLUTICASONE/SALMETEROL 45-21 MCG INHALER 1 PUFF 2 PUFF INHALATION ×2 (07:36→20:17)
[2025-04-15] MEDS: UMECLIDINIUM BROMIDE 62.5 MCG ELLIPTA 1 PUFF INHALATION (07:36)
[2025-04-15] MEDS: LOSARTAN POTASSIUM 25 MG TABLET PO (09:07)
[2025-04-15] MEDS: DOCUSATE SODIUM 100 MG CAPSULE PO (09:07)
[2025-04-15] MEDS: guaiFENesin 12 HR 600 MG TABCR 1200 MG PO ×2 (09:07→21:54)
[2025-04-15] MEDS: EMTRICITABINE TENOFOVIR 1 EACH PO (09:09)
[2025-04-15] MEDS: DARUNAVIR 800 MG 800 EACH PO (09:09)
[2025-04-15] MEDS: RITONAVIR 100 MG 100 EACH PO (09:10)
--- NOTE | 2025-04-15 12:11 | P.PNIM_ITS ---
Progress Note: A&P Assessment and Plan (1) COPD exacerbation: Code(s): J44.1 - Chronic obstructive pulmonary disease with (acute) exacerbation Status: Acute Assessment and Plan: Solu-Medrol Guaifenesin Breathing treatment Wean oxygen as able Patient is on home prednisone of 10 mg will increase to 40 while in hospital (2) PNA (pneumonia): Code(s): J18.9 - Pneumonia, unspecified organism Status: Acute Assessment and Plan: Rocephin and azithromycin (3) Hypoxic respiratory failure: Code(s): J96.91 - Respiratory failure, unspecified with hypoxia Status: Acute Assessment and Plan: See above (4) HIV (human immunodeficiency virus infection): Code(s): B20 - Human immunodeficiency virus [HIV] disease Status: Acute Assessment and Plan: Continue antivirals Subjective Date/time seen: 04/15/25 12:11 Interval history: Feeling a little better today. Still has some cough and shortness of breath with exertion. Review of Systems Review of Systems: All systems reviewed & are unremarkable except as noted in HPI and below Exam Narrative: General: well appearing, appears stated age. HEENT: normocephalic, atraumatic. Mucous membranes moist. EOMI, PERRLA Respiratory: clear to ascultation bilaterally. No rales/rhonic/wheezes. Cardiovascular: Regular rate and rhythm, normal S1-S2 upon ascultation. No murmurs, rubs, or clicks. Abdomen: Soft, round, no pulsatile masses, nondistended and nontender. No rebound, no guarding. Extremities: No cyanosis, clubbing, or edema present. Pulses are palpable 2/2. Active ROM to all four extremities. Neuro: Alert and orientated x 4. PERRLA. Cranial nerves 2-12 intact without focal deficit. Skin: Warm, dry, and intact, without rash, erythema, or lesion. Psych: pleasant, cooperative, normal speech, normal affect, no hallucinations, no dysarthia Objective Data Vital Signs Vital Signs: Vital Signs - 24 hr 04/14/25 13:22 04/14/25 13:28 04/14/25 14:00 Temperature 96.8 F L Pulse Rate 101 H 100 100 Respiratory Rate 20 18 18 Blood Pressure 184/74 H Pulse Oximetry 93 Oxygen Delivery Oxygen Flow Rate 04/14/25 20:00 04/14/25 20:40 04/14/25 20:45 Temperature Pulse Rate 97 Respiratory Rate 20 Blood Pressure Pulse Oximetry 97 94 Oxygen Delivery Nasal Cannula Nasal Cannula Oxygen Flow Rate 2 2 04/14/25 20:50 04/14/25 21:44 04/15/25 03:10 Temperature 97.2 F L Pulse Rate 99 89 88 Respiratory Rate 20 20 18 Blood Pressure 151/94 H Pulse Oximetry 97 Oxygen Delivery Oxygen Flow Rate 04/15/25 03:16 04/15/25 05:11 04/15/25 07:37 Temperature 97.6 F Pulse Rate 89 82 86 Respiratory Rate 18 16 18 Blood Pressure 157/92 H Pulse Oximetry 86 L Oxygen Delivery Oxygen Flow Rate 04/15/25 07:39 04/15/25 07:45 04/15/25 08:30 Temperature Pulse Rate 86 91 Respiratory Rate 18 20 Blood Pressure Pulse Oximetry 95 95 Oxygen Delivery Nasal Cannula Nasal Cannula Oxygen Flow Rate 2 80 Intake/Output Intake/Output: Intake & Output 04/12/25 04/13/25 04/14/25 04/15/25 23:59 23:59 23:59 23:59 Intake Total 1080 2470 1180 1040 Balance 1080 2470 1180 1040 Meds/Results Medications: Active Medications Generic Name Dose Route Start Last Admin Trade Name Freq PRN Reason Stop Dose Admin Acetaminophen 650 mg 04/12/25 14:20 Acetaminophen 325 Mg Tablet PO Q4H PRN Mild Pain (1-3) or Fever Hydrocodone Bitart/Acetaminophen 1 tab 04/12/25 14:20 Hydrocodone/Acetaminophen (*Crx) 5-325 Mg Tablet PO Q4H PRN Moderate Pain (4-6) Albuterol/Ipratropium 3 ml 04/12/25 20:00 04/15/25 07:33 Ipratropium 0.5 Mg/Albuterol Sulfate 2.5 Mg Ampul.Neb 3 Ml INHALATION 3 ml Q6HRT SOHAM Administration Benzocaine 1 lozenge 04/14/25 12:23 04/14/25 13:53 Benzocaine/Menthol (*Bkc) 18 Ea Lozenge PO 1 lozenge PRN PRN Administration Cough Docusate Sodium 100 mg 04/12/25 21:00 04/15/25 09:07 Docusate Sodium 100 Mg Capsule PO 100 mg Q12HR SOHAM Administration Enoxaparin Sodium 40 mg 04/13/25 09:00 04/15/25 09:08 Enoxaparin 40 Mg/0.4 Ml Syringe SUB-Q Not Given DAILY SOHAM Guaifenesin 1,200 mg 04/12/25 21:00 04/15/25 09:07 Guaifenesin 12 Hr 600 Mg Tabcr PO 1,200 mg Q12HR SOHAM Administration Azithromycin 500 mg/ Sodium 250 mls @ 250 mls/hr 04/13/25 15:00 04/14/25 14:41 Chloride IVPB 250 mls/hr Q24H SOHAM Administration Ceftriaxone Sodium 1 gm/ 50 mls @ 100 mls/hr 04/13/25 13:00 04/14/25 13:39 Sodium Chloride IVPB 100 mls/hr Q24H SOHAM Administration Losartan Potassium 25 mg 04/13/25 09:00 04/15/25 09:07 Losartan Potassium 25 Mg Tablet PO 25 mg DAILY SOHAM Administration Home Med (Darunavir 800 mg 04/13/25 09:00 04/15/25 09:09 800 Mg Tablet) PO 05/13/25 08:59 800 mg DAILY SOHAM Administration Home Med ( 1 tablet 04/13/25 09:00 04/15/25 09:09 Emtricitabine- PO 05/13/25 08:59 1 tablet Tenofovir (Tdf) [ DAILY SOHAM Administration Truvada] 200-300 Mg Tablet) Home Med (Ritonavir 100 mg 04/13/25 09:00 04/15/25 09:10 100 Mg) PO 05/13/25 08:59 100 mg DAILY SOHAM Administration Prednisone 40 mg 04/13/25 08:00 04/15/25 09:07 Prednisone 20 Mg Tablet PO 40 mg DAILY@0800 SOHAM Administration Fluticasone/Salmeterol 2 puff 04/12/25 20:00 04/15/25 07:36 Fluticasone/Salmeterol 45-21 Mcg Inhaler 1 Puff INHALATION 2 puff Q12HRT SOHAM Administration Umeclidinium [place] 1 puff 04/13/25 08:00 04/15/25 07:36 Umeclidinium [place] 62.5 Mcg Ellipta INHALATION 1 puff DAILYRT SOHAM Administration Radiology Results: ITS Impressions Chest X-Ray 04/12/25 11:45 IMPRESSION: Findings concerning for bilateral pneumonia number in right midlung zone and left lung base), as detailed above. Short-term follow-up chest radiograph is recommended after appropriate clinical therapy. Labs Labs: Laboratory Results - last 24 hr 04/15/25 06:09 WBC 9.0 RBC 4.38 Hgb 11.0 L Hct 36.9 L MCV 84.2 MCH 25.1 L MCHC 29.8 L RDW 15.7 H Plt Count 314 MPV 9.0 Immature Gran % (Auto) 0.8 H Neut % (Auto) 70.0 Lymph % (Auto) 22.2 [place] % (Auto) 6.3 Eos % (Auto) 0.6 Baso % (Auto) 0.1 L Lymph # (Auto) 2.00 [place] # (Auto) 0.6 Eos # (Auto) 0.1 Baso # (Auto) 0.0 Abs Immat Gran (auto) 0.07 H Absolute Neuts (auto) 6.3 Absolute Nucleated RBC 0.000 Band Neutrophils % Not Reportable Nucleated RBC % 0.0 Platelet Estimate Adequate Hypochromasia 1+ Schistocytes None seen Sodium 135 L Potassium 4.6 Chloride 93 L Carbon Dioxide 39 H Anion Gap 3 L BUN 11 Creatinine 0.38 L Estim Creat Clear Calc 81 Estimated GFR > 60 Glucose 89 Calcium 8.1 L Magnesium 2.3 Total Bilirubin < 0.1 L AST 25 ALT 19 Alkaline Phosphatase 49 Total Protein 6.2 L Albumin 3.1 L
[2025-04-15] MEDS: cefTRIAXone 1 GM in SODIUM CHLORIDE 0.9% IV 50 ML 100 ML IVPB (12:40)
[2025-04-15] MEDS: AZITHROMYCIN IV 500 MG in SODIUM CHLORIDE 0.9% IV 250 ML IVPB (14:43)
[2025-04-16] VITALS (13 sets, daily range): BP systolic 141–146; BP diastolic 85–86; PULSE 80–115; RESP 18–20; TEMP 36.4; O2SAT 85–100
[2025-04-16] MEDS: IPRATROPIUM 0.5 MG/ALBUTEROL SULFATE 2.5 MG AMPUL.NEB 3 ML INHALATION ×3 (01:34→13:37)
[2025-04-16] MEDS: FLUTICASONE/SALMETEROL 45-21 MCG INHALER 1 PUFF 2 PUFF INHALATION (08:00)
[2025-04-16 08:57] LABS: Hematocrit 39.7 % (37.0-47.0); Hemoglobin 11.8 g/dL (12.0-15.0); Immature Granulocyte Percent A 1.4 % (0-0.5); Lymphocytes Absolute Auto 2.26 K/mm3 (0.9-3.2); Mean Corpuscular HGB Conc 29.7 g/dl (32-36); Mean Corpuscular Hemoglobin 25.1 pg (26-34); Mean Corpuscular Volume 84.3 fl (80-100); Nucleated Red Blood Cells Absolute Auto 0.000 K/mm3 (0.0-0.012); Nucleated Red Blood Cells Perc 0.0 % (0.0-0.2); Platelet Count Result 314 k/mm3 (150-375); Red Blood Count 4.71 M/mm3 (4.2-5.4); White Blood Count 8.1 K/mm3 (4.5-10.0)
[2025-04-16] MEDS: DOCUSATE SODIUM 100 MG CAPSULE PO (09:18)
[2025-04-16] MEDS: guaiFENesin 12 HR 600 MG TABCR 1200 MG PO (09:18)
[2025-04-16] MEDS: LOSARTAN POTASSIUM 25 MG TABLET PO (09:18)
[2025-04-16] MEDS: DARUNAVIR 800 MG 800 EACH PO (09:19)
[2025-04-16] MEDS: EMTRICITABINE TENOFOVIR 1 EACH PO (09:19)
[2025-04-16] MEDS: RITONAVIR 100 MG 100 EACH PO (09:20)
[2025-04-16 09:25] LABS: Alanine Aminotransferase 20 U/L (6-35); Albumin Level 3.4 g/dL (3.5-5.1); Alkaline Phosphatase 55 U/L (38-126); Anion Gap 4 mmol/L (4-12); Aspartate Amino Transferase 25 U/L (14-36); Bilirubin,Total < 0.1 mg/dL (0.2-1.3); Blood Urea Nitrogen 14 mg/dL (7-17); Calcium 8.3 mg/dL (8.4-10.2); Carbon Dioxide 38 mmol/L (22-30); Chloride 91 mmol/L (98-107); Estimated CRCL calculation 71 ml/min; Estimated Glomerular Filt Rate > 60; Glucose 136 mg/dL (65-110); Potassium 4.1 mmol/L (3.4-5.0); Sodium 133 mmol/L (137-145); Total Protein 6.6 g/dL (6.3-8.2)
[2025-04-16 09:27] LABS: Hypochromasia 1+
[2025-04-16 09:28] LABS: Schistocytes None Seen
[2025-04-16] MEDS: cefTRIAXone 1 GM in SODIUM CHLORIDE 0.9% IV 50 ML 100 ML IVPB (12:44)
--- NOTE | 2025-04-16 13:54 | PCRCNOTE ---
Home o2 eval done, pt requires 2 liters resting and exertion/activity. Tank in room for transport home. [facility] [place] company, contact Josh [phone]
--- NOTE | 2025-04-16 15:01 | P.DS_ITS ---
DS: Admitting Diagnosis Discharge Date 04/16/2025 Admitting Diagnosis shortness of breath DS: Discharge Diagnosis Discharge Diagnosis (1) COPD exacerbation: Code(s): J44.1 - Chronic obstructive pulmonary disease with (acute) exacerbation Status: Acute (2) PNA (pneumonia): Code(s): J18.9 - Pneumonia, unspecified organism Status: Acute (3) Hypoxic respiratory failure: Code(s): J96.91 - Respiratory failure, unspecified with hypoxia Status: Acute (4) HIV (human immunodeficiency virus infection): Code(s): B20 - Human immunodeficiency virus [HIV] disease Status: Acute DS: Summary Hospital Course Hospital Course: # COPD exacerbation: Solu-Medrol Guaifenesin Breathing treatment Wean oxygen as able Patient is on home prednisone of 10 mg will increase to 40 while in hospital Home oxygen evaluation with stable oxygen requirement. Steroid taper at discharge # PNA (pneumonia): Rocephin and azithromycin Oral at discharge # Hypoxic respiratory failure: See above # HIV (human immunodeficiency virus infection): Continue antivirals Time Spent with Patient Time attestation: Total time spent providing and/or coordinating discharge services: 40 minutes Exam Narrative: General: well appearing, appears stated age. HEENT: normocephalic, atraumatic. Mucous membranes moist. EOMI, PERRLA Respiratory: clear to ascultation bilaterally. No rales/rhonic/wheezes. Cardiovascular: Regular rate and rhythm, normal S1-S2 upon ascultation. No murmurs, rubs, or clicks. Abdomen: Soft, round, no pulsatile masses, nondistended and nontender. No rebound, no guarding. Extremities: No cyanosis, clubbing, or edema present. Pulses are palpable 2/2. Active ROM to all four extremities. Neuro: Alert and orientated x 4. PERRLA. Cranial nerves 2-12 intact without focal deficit. Skin: Warm, dry, and intact, without rash, erythema, or lesion. Psych: pleasant, cooperative, normal speech, normal affect, no hallucinations, no dysarthia DS: Data Data Completed and Pending Labs on day of discharge: Labs from last 24 hours 04/16/25 08:46 WBC 8.1 RBC 4.71 Hgb 11.8 L Hct 39.7 MCV 84.3 MCH 25.1 L MCHC 29.7 L RDW 15.6 H Plt Count 314 MPV 9.1 Immature Gran % (Auto) 1.4 H Neut % (Auto) 62.4 Lymph % (Auto) 27.8 [place] % (Auto) 6.9 Eos % (Auto) 1.1 Baso % (Auto) 0.4 Lymph # (Auto) 2.26 [place] # (Auto) 0.6 Eos # (Auto) 0.1 Baso # (Auto) 0.0 Abs Immat Gran (auto) 0.11 H Absolute Neuts (auto) 5.1 Absolute Nucleated RBC 0.000 Band Neutrophils % Not Reportable Nucleated RBC % 0.0 Platelet Estimate Adequate Hypochromasia 1+ Schistocytes None seen Sodium 133 L Potassium 4.1 Chloride 91 L Carbon Dioxide 38 H Anion Gap 4 BUN 14 Creatinine 0.44 L Estim Creat Clear Calc 71 Estimated GFR > 60 Glucose 136 H Calcium 8.3 L Total Bilirubin < 0.1 L AST 25 ALT 20 Alkaline Phosphatase 55 Total Protein 6.6 Albumin 3.4 L Preliminary micro results at discharge 04/12/25 12:53 Blood Culture - Preliminary Blood 04/12/25 12:51 Blood Culture - Preliminary Blood Imaging Radiologist's impression: ITS Impressions Chest X-Ray 04/12/25 11:45 IMPRESSION: Findings concerning for bilateral pneumonia number in right midlung zone and left lung base), as detailed above. Short-term follow-up chest radiograph is recommended after appropriate clinical therapy. Discharge Plan Discharge Attending physician on discharge: Shane Barahona Discharging Clinician: Shane Barahona Anticipated Discharge Date/Time: 04/16/25 15:12 Patient Disposition: Home Activity: as tolerated Diet: heart healthy Discharge Instructions: oxygen 2l at rest and activity Patient Instructions: Antibiotic Form Patient Language: Citizen Of [place] Stand Alone Forms: General Discharge Information Follow-up/Referrals: Jackie,KIMBERLI Naqvi [Primary Care Provider] - 1 Week Discharge Medications: New guaifenesin [Mucus Relief ER] 600 mg Tablet Extended Release 12hr 1,200 mg PO Q12HR Qty: 30 0RF amoxicillin-pot clavulanate 875-125 mg tablet 1 tablet PO Q12H Qty: 4 0RF prednisone 10 mg tablet 10 mg PO DIRECTED Qty: 18 0RF Rx Instructions: take 3 tabs daily x 3 days then 2 tabs daily x 3 days then 1 tab daily x 3 days Continued Spiriva Respimat 1.25 mcg/actuation mist 2 puff inhalation DAILY budesonide-formoterol [Symbicort] 80-4.5 mcg/actuation Hfa Aerosol Inhaler 2 puff INHALATION BID prednisone 10 mg tablet 10 mg PO DIRECTED Qty: 62 0RF Rx Instructions: 6Tx3d, 5Tx3d, 4Tx3d, 3Tx3d, 2Tx3d, 1Tx3d ipratropium-albuterol 0.5 mg-3 mg(2.5 mg base)/3 mL solution for nebulization 3 ml inhalation Q6H PRN (Reason: shortness of breath or wheezing) Qty: 90 0RF losartan 25 mg tablet 25 mg PO DAILY Qty: 30 0RF albuterol sulfate 90 mcg/actuation HFA aerosol inhaler 1 inh inhalation QID PRN (Reason: shortness of breath or wheezing) Qty: 6.7 0RF darunavir 800 mg tablet 800 mg PO DAILY emtricitabine-tenofovir (TDF) [Truvada] 200-300 mg tablet 1 tablet PO DAILY [place] Saline 0.65 % aerosol,spray 2 spray intranasal QID PRN (Reason: nasal congestion) ritonavir 100 mg tablet 100 mg PO DAILY Date of admission: 04/12/25 13:48 Primary Care Provider: AliyahDonya Admitting Provider: Celine Guerra Attending physician on admission: Celine Guerra Condition: Stable
[2025-04-16] MEDS: AZITHROMYCIN 250 MG TABLET 500 MG PO (15:12)
== END 2025-04-16 17:34 | disposition home or self-care (01) ==
LOC: ANHED 12:15 → ANH3MEDSUR 04-13 15:45
PROVIDERS: Nurse Practitioner Gerontology; Admitting Provider Internal Medicine; Emergency Provider Emergency Medicine; PCP Physician Assistant; Visit Provider Internal Medicine
DX: J18.9 Pneumonia, unspecified organism (principal); J44.1 Chronic obstructive pulmonary disease with (acute) exacerbation; J96.91 Respiratory failure, unspecified with hypoxia; B20 Human immunodeficiency virus [HIV] disease; Z87.891 Personal history of nicotine dependence; Z99.81 Dependence on supplemental oxygen
CPT/HCPCS: 36415; 71046; 80048; 80053; 83735; 85025; 85610; 85730; 86361; 87040; 87536; 94618; 94640; 94667; 96365; 96367; 96374; 96375; 99285; A9270; G0378; G0379; J0456; J0696; J1650; J1885; J2919; J7050; J7512

== ENCOUNTER 2025-05-27 18:12 | Inpatient (IN) | payer OTHER, SELFPAY ==
--- OUTSIDE RECORDS SUMMARY | 2008-05-22 07:57 | XMS_ITS | Continuity of Care Document ---
Author Organization [facility] Address [address] [place] [address] utive [facility] [address] [place] [address] Phone Care Team Providers Care Professor Of Management Name Role Phone Seamus Quinn Unavailable Unavailable Procedures Procedure Date Eye Exam, New Patient Advance Directives Directive Yes / No Effective Date File Name No Information Encounters Encounter Description Practice Location Reason(s) For Visit Diagnoses Date Provider Providers Copied on Encounter [facility], [address] [place] [address] [address], [place], [place], [id number], [place] tel:[phone] [facility] No Information [address] [facility] [address], [place], [address], [place]. tel:[phone] Family History Family Member Type Diagnosis Age At Onset No Information Payers Payer name Insurance type Covered democrat ID Authoriza tion(s) [place] CI [id number] Social History Type Description Quantity Date Captured Comments Sex Female Smoking Status No Information Chief Complaint And Reason For Visit No Information Reason For Referral Reason For Referral No Information History Of Present Illness Encounter Date Complaint History Of Prese nt Illness No Information Functional Status Date Functional Assessmen t No Information Instructions Date Instruction Additional Infor mation No Information Assessments Type Assessment Date No Information Patient Care Teams Name Effective Dates (start - stop) Status Members No Information
--- NOTE | ~2025-05-27 | CT_ITS ---
EXAMINATION: CTA chest PE protocol DATE: 05/27/2025 20:02 CDT INDICATION: Right-sided pleuritic chest pain. TECHNIQUE: Computed tomographic angiography (CTA) of the chest was performed with 100 mL Omnipaque-350 intravenous contrast. The dose-length product was 168.95 mGy-cm. Maximum intensity projection 3D-reconstructions of the aorta and other arteries were constructed by the technologist on a separate workstation. COMPARISON: CT dated 02/01/2024. FINDINGS: Study is technically adequate. No evidence for pulmonary embolism. There is bilateral hilar lymphadenopathy. There is subcarinal lymphadenopathy. Right hilar lymph node measuring 4.1 x 2.1 cm. No significant pleural or pericardial effusion. There is a densely calcified granuloma in the right upper lobe. There is scarring in the left upper lobe with calcified granuloma. There is a new mass in the right upper lobe, image 69, measuring 2.4 x 1.8 cm, concerning for bronchogenic carcinoma. There is a new mass in the lingula with irregular configuration measuring 2 x 1.1 cm. There is right middle lobe and lingular airspace consolidation. No pneumothorax. There is emphysema. There is 2.9 cm hypodense mass of the right hepatic lobe with marginal enhancement. Mild thoracic spondylosis with accentuated kyphosis. There is a second peripherally enhancing mass in the left hepatic lobe measuring 1.8 cm. IMPRESSION: 1. New bilateral upper lobe masses, largest measuring up to 2.4 cm, concerning for bronchogenic carcinoma. Abnormal hilar lymphadenopathy, suspicious for metastatic disease. 2: Right middle lobe and lingular airspace consolidation, consistent with pneumonia. 3: No large central pulmonary embolism. Evaluation of peripheral pulmonary arteries somewhat limited due to motion artifact and contrast bolus timing. Reviewed, dictated and finalized at location O. IMPRESSION: 1. New bilateral upper lobe masses, largest measuring up to 2.4 cm, concerning for bronchogenic carcinoma. Abnormal hilar lymphadenopathy, suspicious for meta static disease. 2: Right middle lobe and lingular airspace consolidation, consistent with pneu monia. 3: No large central pulmonary embolism. Evaluation of peripheral pulmonary tarik nessa somewhat limited due to motion artifact and contrast bolus timing.
--- NOTE | ~2025-05-27 | XR_ITS ---
EXAMINATION: XR chest 1V portable, 05/30/2025 8:50 CDT HISTORY: COPD, pneumonia, SOB COMPARISON: Comparison 05/27/2025. Technique: Single view. Findings: Scattered calcified granulomas of the lung parenchyma. Small right basilar infiltrate and effusion. Minimal residual left basilar infiltrate. No pneumothorax. Mild cardiomegaly. Mediastinal and hilar contours are within normal limits. Bony thorax no acute abnormality. Impression: Compared to the prior study probable pneumonic process appears slightly improved, there is a new small right pleural effusion. Reviewed, dictated and finalized at location A. Impression: Compared to the prior study probable pneumonic process appears slightly improve d, there is a new small right pleural effusion.
--- NOTE | ~2025-05-27 | XR_ITS ---
XR chest 2V 05/27/2025 18:41 Indication: Dyspnea Procedure: 2 view chest Comparison: Comparison to multiple prior studies sequentially, with oldest reviewed study dated 03/09/2022. Findings: There is bibasilar airspace disease, compatible with pneumonia. There is a calcified nodule in the right upper lobe is unchanged dating back to 03/09/2022. The lungs are hyperinflated which is consistent with, but not diagnostic of chronic obstructive pulmonary disease. Impression: 1: Bibasilar airspace disease, compatible with pneumonia. Reviewed, dictated and finalized at location O. Impression: 1: Bibasilar airspace disease, compatible with pneumonia.
[2025-05-27 18:19] VITALS: BP 159/98; PULSE 102; RESP 35; TEMP 37.1; O2SAT 96
--- NOTE | 2025-05-27 18:19 | ECG_ITS ---
Test Date: 2025-05-27 18:20:21 Measurements Intervals Conception Rate: 100 P: 52 AR: 135 QRS: 64 QRSD: 89 T: 44 QT: 320 QTc: 413 Interpretive Statements SINUS TACHYCARDIA CANNOT R/O SEPTAL INFARCT, AGE INDETERMINATE BASELINE ARTIFACT- I, II, AVR, AVL, AVF, V3-V6 ABNORMAL ECG No previous ECG available for comparison Electronically Signed On 05-27-2025 20:15:34 CDT by Jimmie Gordon D.O.
[2025-05-27 18:23] VITALS: O2SAT 95
[2025-05-27 18:31] LABS: Hematocrit 38.7 % (37.0-47.0); Hemoglobin 11.8 g/dL (12.0-15.0); Immature Granulocyte Percent A 0.4 % (0-0.5); Lymphocytes Absolute Auto 1.29 K/mm3 (0.9-3.2); Mean Corpuscular HGB Conc 30.5 g/dl (32-36); Mean Corpuscular Hemoglobin 25.8 pg (26-34); Mean Corpuscular Volume 84.7 fl (80-100); Nucleated Red Blood Cells Absolute Auto 0.000 K/mm3 (0.0-0.012); Nucleated Red Blood Cells Perc 0.0 % (0.0-0.2); Platelet Count Result 314 k/mm3 (150-375); Red Blood Count 4.57 M/mm3 (4.2-5.4); White Blood Count 12.9 K/mm3 (4.5-10.0)
--- NOTE | 2025-05-27 18:42 | ED.GENADULT ---
HPI - General Adult General Chief complaint: Shortness of Breath/Dyspnea <Florian Garza MD - Last Filed: 05/27/25 19:49> Stated complaint: SOB <Florian Garza MD - Last Filed: 05/27/25 19:49> Time Seen by Provider: 05/27/25 18:27 <Florian Garza MD - Last Filed: 05/27/25 19:49> History of Present Illness HPI narrative: Patient is 65-year-old female who presents emergency department with chief complaint right-sided chest pain patient reports that she has history of COPD also has had pneumonia patient states she started having pain on right side her chest felt somewhat whenever she has had pneumonia patient reports hurts whenever she takes deep breath the patient was found to be saturating 89% on her normal 3 L at home by EMS <Florian Garza MD - Last Filed: 05/27/25 19:49> Related Data Home medications: Home Medications ?Medication ?Instructions ?Recorded ?Confirmed ?Last Taken ?Type budesonide-formoterol HFA 80 2 puff inhalation BID 03/09/22 04/12/25 04/12/25 History mcg-4.5 mcg/actuation aerosol inhaler (Symbicort) tiotropium bromide 1.25 2 puff inhalation DAILY 07/12/24 04/12/25 04/12/25 History mcg/actuation mist for inhalation (Spiriva Respimat) darunavir 800 mg tablet 800 mg PO DAILY 04/12/25 04/12/25 04/12/25 History emtricitabine 200 mg-tenofovir 1 tablet PO DAILY 04/12/25 04/12/25 04/12/25 History disoproxil fumarate 300 mg tablet (Truvada) ritonavir 100 mg tablet 100 mg PO DAILY 04/12/25 04/12/25 04/12/25 History sodium chloride 0.65 % nasal spray 2 spray intranasal QID PRN nasal 04/12/25 04/12/25 04/12/25 History aerosol ([place] Saline) congestion <Florian Garza MD - Last Filed: 05/27/25 19:49> Allergies/adverse reactions: Allergies Allergy/AdvReac Type Severity Reaction Status Date / Time meperidine Allergy Unknown anaphlaxis Verified 04/12/25 17:57 orange Allergy Unknown Hives Verified 04/12/25 17:57 <Florian Garza MD - Last Filed: 05/27/25 19:49> Review of Systems Review of Systems: A 10 system review of systems was completed on the patient and is negative except for what is stated in the HPI. Nursing and ancillary documentation was reviewed. <Florian Garza MD - Last Filed: 05/27/25 19:49> [facility] Past Medical History Medical History: Medical History Cavernous hemangioma HIV (human immunodeficiency virus infection) COPD (chronic obstructive pulmonary disease) <Florian Garza MD - Last Filed: 05/27/25 19:49> Surgical History Surgical History: Surgical History History of tonsillectomy History of hysterectomy <Florian Garza MD - Last Filed: 05/27/25 19:49> Family History Family History: Family History Grandparent Diabetes mellitus Mother Diabetes mellitus <Florian Garza MD - Last Filed: 05/27/25 19:49> Social History Social History: Social History Smoking packs per day: 1 Smoking cigarettes per day: 20.0 Years smoked: 55 Smoking pack-years: 55.00 Smoking status: Former smoker Second hand tobacco smoke exposure: Yes Alcohol intake: never Substance use: never Substance use type: does not use Do You Feel Safe in your Home?: Yes Lack of Transportation: No Lack of Food: Never True Current Housing: I Have Housing Concerned About Future Housing: No Difficulty Paying Gas/Electric Bills: No Difficulty Paying for Meds: No Currently Unemployed: No Education: Bachelor's Degree Difficulty w/ Childcare or Family Care: No Spiritual care concerns: No <Florian Garza MD - Last Filed: 05/27/25 19:49> Exam Narrative: GENERAL: Ill-appearing, thin, and in mild acute distress. HEAD: Normocephalic, atraumatic. EYES: PERRLA and EOMI. ENT: Nares clear, no rhinorrhea or epistaxis. Mucous membranes moist. NECK: Supple. CHEST: Clear to auscultation. No respiratory distress. HEART: Regular rate and rhythm. No murmur heard. Normal peripheral pulses. ABDOMEN: Soft, nontender, nondistended, normal active bowel sounds. EXTREMITIES: Normal range of motion. No edema. SKIN: Warm, dry, no rash. NEURO: No focal deficits. Alert and oriented x3. PSYCH: Normal mood and affect. <Florian Garza MD - Last Filed: 05/27/25 19:49> Course Vital Signs Vital signs: Vital Signs Temperature 98.8 F 05/27/25 18:19 Pulse Rate 102 H 05/27/25 18:19 Respiratory Rate 35 H 05/27/25 18:19 Blood Pressure 159/98 H 05/27/25 18:19 Pulse Oximetry 96 05/27/25 18:19 Oxygen Delivery Nasal Cannula 05/27/25 18:19 Oxygen Flow Rate 5 05/27/25 18:19 Temperature 98.8 F 05/27/25 18:19 Pulse Rate 104 H 05/27/25 18:46 Respiratory Rate 28 H 05/27/25 18:46 Blood Pressure 159/98 H 05/27/25 18:19 Pulse Oximetry 95 05/27/25 18:23 Oxygen Delivery Nasal Cannula 05/27/25 18:23 Oxygen Flow Rate 5 05/27/25 18:23 <Florian Garza MD - Last Filed: 05/27/25 19:49> Vital Signs Temperature 98.8 F 05/27/25 18:19 Pulse Rate 102 H 05/27/25 18:19 Respiratory Rate 35 H 05/27/25 18:19 Blood Pressure 159/98 H 05/27/25 18:19 Pulse Oximetry 96 05/27/25 18:19 Oxygen Delivery Nasal Cannula 05/27/25 18:19 Oxygen Flow Rate 5 05/27/25 18:19 Temperature 98.8 F 05/27/25 18:19 Pulse Rate 104 H 05/27/25 18:46 Respiratory Rate 28 H 05/27/25 18:46 Blood Pressure 159/98 H 05/27/25 18:19 Pulse Oximetry 95 05/27/25 18:23 Oxygen Delivery Nasal Cannula 05/27/25 18:23 Oxygen Flow Rate 5 05/27/25 18:23 <Mart Ortiz MD - Last Filed: 05/27/25 20:49> Medical Decision Making MDM Narrative Medical decision making narrative: Differential diagnosis includes pneumonia, pneumothorax, COPD exacerbation Laboratory studies were obtained the patient showed a blood gas with pH 7.388 pCO2 of 60 White blood cell count was 12.9 electrolytes are within normal limits lactate is pending troponin is negative BNP is 5 1 4 COVID flu and RSV are pending chest x-ray shows improved infiltrates from previous chest x-ray in April of PE study is currently pending I will be signing out care to the overnight provider <Florian Garza MD - Last Filed: 05/27/25 19:49> Differential diagnosis includes pneumonia, pneumothorax, COPD exacerbation Laboratory studies were obtained the patient showed a blood gas with pH 7.388 pCO2 of 60 White blood cell count was 12.9 electrolytes are within normal limits lactate is pending troponin is negative BNP is 5 1 4 COVID flu and RSV are pending chest x-ray shows improved infiltrates from previous chest x-ray in April PE study is currently pending I will be signing out care to the overnight provider. Diana: Patient was signed out to me pending CTA PE protocol. CT was obtained and bili interpreted by me revealing: IMPRESSION: 1. New bilateral upper lobe masses, largest measuring up to 2.4 cm, concerning for bronchogenic carcinoma. Abnormal hilar lymphadenopathy, suspicious for metastatic disease. 2: Right middle lobe and lingular airspace consolidation, consistent with pneumonia. 3: No large central pulmonary embolism. Evaluation of peripheral pulmonary arteries somewhat limited due to motion artifact and contrast bolus timing. Patient was started on IV antibiotics with Rocephin/active some icing to cover her for pneumonia after blood cultures were obtained. On repeat assessment, she is satting 94% on 3.5 L which is her home oxygen. States that she feels significantly better after the breathing treatment. No increased work of breathing. History discussed with the on-call hospitalist Dr. Sierra at 2039 who accepted admission. Patient was admitted in stable condition. Critical care time of 57 minutes, exclusive of separately performed procedures, necessary for treating or preventing eminent or life-threatening deterioration of patient's condition of sepsis, focused on patient care provided personally by me and time spent during initial evaluation, physical examination, ordering and performing treatments and interventions, ordering and reviewing laboratory studies, ordering and reviewing radiographic studies, re-evaluation of the patient's condition, evaluation of the patient's response to treatment, and discussion of patient case with multiple consultants. <Mart Ortiz MD - Last Filed: 05/27/25 20:49> Vital Signs Vital Signs: Vital Signs Temperature 98.8 F 05/27/25 18:19 Pulse Rate 102 H 05/27/25 18:19 Respiratory Rate 35 H 05/27/25 18:19 Blood Pressure 159/98 H 05/27/25 18:19 Pulse Oximetry 96 05/27/25 18:19 Oxygen Delivery Nasal Cannula 05/27/25 18:19 Oxygen Flow Rate 5 05/27/25 18:19 Temperature 98.8 F 05/27/25 18:19 Pulse Rate 104 H 05/27/25 18:46 Respiratory Rate 28 H 05/27/25 18:46 Blood Pressure 159/98 H 05/27/25 18:19 Pulse Oximetry 95 05/27/25 18:23 Oxygen Delivery Nasal Cannula 05/27/25 18:23 Oxygen Flow Rate 5 05/27/25 18:23 <Florian Garza MD - Last Filed: 05/27/25 19:49> Vital Signs Temperature 98.8 F 05/27/25 18:19 Pulse Rate 102 H 05/27/25 18:19 Respiratory Rate 35 H 05/27/25 18:19 Blood Pressure 159/98 H 05/27/25 18:19 Pulse Oximetry 96 05/27/25 18:19 Oxygen Delivery Nasal Cannula 05/27/25 18:19 Oxygen Flow Rate 5 05/27/25 18:19 Temperature 98.8 F 05/27/25 18:19 Pulse Rate 104 H 05/27/25 18:46 Respiratory Rate 28 H 05/27/25 18:46 Blood Pressure 159/98 H 05/27/25 18:19 Pulse Oximetry 95 05/27/25 18:23 Oxygen Delivery Nasal Cannula 05/27/25 18:23 Oxygen Flow Rate 5 05/27/25 18:23 <Mart Ortiz MD - Last Filed: 05/27/25 20:49> Lab Data Result diagrams: 05/27/25 18:26 05/27/25 18:26 <Florian Garza MD - Last Filed: 05/27/25 19:49> Labs: Lab Results 05/27/25 05/27/25 Range/Units 18:26 19:01 WBC 12.9 H (4.5-10.0) K/mm3 RBC 4.57 (4.2-5.4) M/mm3 Hgb 11.8 L (12.0-15.0) g/dL Hct 38.7 (37.0-47.0) % MCV 84.7 (80-100) fl MCH 25.8 L (26-34) pg MCHC 30.5 L (32-36) g/dl RDW 16.1 H (11.5-14.5) % Plt Count 314 (150-375) k/mm3 MPV 9.3 (7.4-10.4) fl Immature Gran % (Auto) 0.4 (0-0.5) % Neut % (Auto) 80.7 H (45.5-73.1) % Lymph % (Auto) 10.0 L (18.3-44.2) % [place] % (Auto) 8.1 (2.6-8.5) % Eos % (Auto) 0.6 (0-4.4) % Baso % (Auto) 0.2 (0.2-1.2) % Lymph # (Auto) 1.29 (0.9-3.2) K/mm3 [place] # (Auto) 1.0 H (0.1-0.6) K/mm3 Eos # (Auto) 0.1 (0-0.3) K/mm3 Baso # (Auto) 0.0 (0.0-0.1) K/mm3 Abs Immat Gran (auto) 0.05 H (0.00-0.031) K/mm3 Absolute Neuts (auto) 10.4 H (1.3-6.7) K/mm3 Absolute Nucleated RBC 0.000 (0.0-0.012) K/mm3 Nucleated RBC % 0.0 (0.0-0.2) % PT 12.2 (11.1-14.7) Seconds INR 0.9 APTT 27.0 (22.3-36.8) Seconds Sodium 134 L (137-145) mmol/L Potassium 3.6 (3.4-5.0) mmol/L Chloride 94 L (98-107) mmol/L Carbon Dioxide 37 H (22-30) mmol/L Anion Gap 3 L (4-12) mmol/L BUN 10 (7-17) mg/dL Creatinine 0.39 L (0.7-1.0) mg/dL Estim Creat Clear Calc 82 ml/min Estimated GFR > 60 (59 - ) Glucose 103 (65-110) mg/dL Lactic Acid 1.3 (0.7-2.0) mmol/L Calcium 8.3 L (8.4-10.2) mg/dL Magnesium 2.0 (1.6-2.3) mg/dL Total Bilirubin 0.2 (0.2-1.3) mg/dL AST 50 H (14-36) U/L ALT 32 (6-35) U/L Alkaline Phosphatase 76 (38-126) U/L Troponin I < 0.012 (0.000-0.034) ng/mL NT-Pro-B Natriuret Pep 514 H (19.9-100) pg/mL Total Protein 6.9 (6.3-8.2) g/dL Albumin 3.6 (3.5-5.1) g/dL Lipase 80 (23-300) U/L Procalcitonin 0.0 ng/mL Influenza A (RT-PCR) Negative (Negative) Influenza B (RT-PCR) Negative (Negative) RSV (RT-PCR) Negative (Negative) SARS-CoV-2 RNA (RT-PCR) Negative (Negative) <Florian Garza MD - Last Filed: 05/27/25 19:49> Lab Results 05/27/25 05/27/25 Range/Units 18:26 19:01 WBC 12.9 H (4.5-10.0) K/mm3 RBC 4.57 (4.2-5.4) M/mm3 Hgb 11.8 L (12.0-15.0) g/dL Hct 38.7 (37.0-47.0) % MCV 84.7 (80-100) fl MCH 25.8 L (26-34) pg MCHC 30.5 L (32-36) g/dl RDW 16.1 H (11.5-14.5) % Plt Count 314 (150-375) k/mm3 MPV 9.3 (7.4-10.4) fl Immature Gran % (Auto) 0.4 (0-0.5) % Neut % (Auto) 80.7 H (45.5-73.1) % Lymph % (Auto) 10.0 L (18.3-44.2) % [place] % (Auto) 8.1 (2.6-8.5) % Eos % (Auto) 0.6 (0-4.4) % Baso % (Auto) 0.2 (0.2-1.2) % Lymph # (Auto) 1.29 (0.9-3.2) K/mm3 [place] # (Auto) 1.0 H (0.1-0.6) K/mm3 Eos # (Auto) 0.1 (0-0.3) K/mm3 Baso # (Auto) 0.0 (0.0-0.1) K/mm3 Abs Immat Gran (auto) 0.05 H (0.00-0.031) K/mm3 Absolute Neuts (auto) 10.4 H (1.3-6.7) K/mm3 Absolute Nucleated RBC 0.000 (0.0-0.012) K/mm3 Nucleated RBC % 0.0 (0.0-0.2) % PT 12.2 (11.1-14.7) Seconds INR 0.9 APTT 27.0 (22.3-36.8) Seconds Sodium 134 L (137-145) mmol/L Potassium 3.6 (3.4-5.0) mmol/L Chloride 94 L (98-107) mmol/L Carbon Dioxide 37 H (22-30) mmol/L Anion Gap 3 L (4-12) mmol/L BUN 10 (7-17) mg/dL Creatinine 0.39 L (0.7-1.0) mg/dL Estim Creat Clear Calc 82 ml/min Estimated GFR > 60 (59 - ) Glucose 103 (65-110) mg/dL Lactic Acid 1.3 (0.7-2.0) mmol/L Calcium 8.3 L (8.4-10.2) mg/dL Magnesium 2.0 (1.6-2.3) mg/dL Total Bilirubin 0.2 (0.2-1.3) mg/dL AST 50 H (14-36) U/L ALT 32 (6-35) U/L Alkaline Phosphatase 76 (38-126) U/L Troponin I < 0.012 (0.000-0.034) ng/mL NT-Pro-B Natriuret Pep 514 H (19.9-100) pg/mL Total Protein 6.9 (6.3-8.2) g/dL Albumin 3.6 (3.5-5.1) g/dL Lipase 80 (23-300) U/L Procalcitonin 0.0 ng/mL Influenza A (RT-PCR) Negative (Negative) Influenza B (RT-PCR) Negative (Negative) RSV (RT-PCR) Negative (Negative) SARS-CoV-2 RNA (RT-PCR) Negative (Negative) <Mart Ortiz MD - Last Filed: 05/27/25 20:49> ABG Data ABG results: 05/27/25 18:53 Puncture Site Right radial ABG pH 7.388 ABG pCO2 60.4 H* ABG pO2 50.5 L ABG PO2/FiO2 Ratio 1.58 ABG HCO3 35.6 H ABG O2 Saturation 84.3 L* ABG O2 Content 14.6 L ABG Base Excess 8.6 A-a Gradient 107.0 Oxyhemoglobin 82.2 L* Total Hemoglobin 12.6 O2 Delivery Device Nasal cannula O2 Liters/Min 3.0 FiO2 32 <Florian Garza MD - Last Filed: 05/27/25 19:49> 05/27/25 18:53 Puncture Site Right radial ABG pH 7.388 ABG pCO2 60.4 H* ABG pO2 50.5 L ABG PO2/FiO2 Ratio 1.58 ABG HCO3 35.6 H ABG O2 Saturation 84.3 L* ABG O2 Content 14.6 L ABG Base Excess 8.6 A-a Gradient 107.0 Oxyhemoglobin 82.2 L* Total Hemoglobin 12.6 O2 Delivery Device Nasal cannula O2 Liters/Min 3.0 FiO2 32 <Mart Ortiz MD - Last Filed: 05/27/25 20:49> Critical Care Time Critical Care Time Critical Care Time: Yes <Mart Ortiz MD - Last Filed: 05/27/25 20:49> Total Critical Care Time: 57 (Please refer to [facility] for attestation.) <Mart Ortiz MD - Last Filed: 05/27/25 20:49> Discharge Plan Discharge Clinical Impression: COPD (chronic obstructive pulmonary disease), Community acquired pneumonia, Sepsis, Lung mass <Florian Garza MD - Last Filed: 05/27/25 19:49> Patient Disposition: Still a Patient <Florian Garza MD - Last Filed: 05/27/25 19:49> Condition: Stable <Florian Garza MD - Last Filed: 05/27/25 19:49> Patient Language: Georgian <Florian Garza MD - Last Filed: 05/27/25 19:49> Prescriptions: No Action Spiriva Respimat 1.25 mcg/actuation mist 2 puff inhalation DAILY budesonide-formoterol [Symbicort] 80-4.5 mcg/actuation Hfa Aerosol Inhaler 2 puff INHALATION BID prednisone 10 mg tablet 10 mg PO DIRECTED Qty: 62 0RF Rx Instructions: 6Tx3d, 5Tx3d, 4Tx3d, 3Tx3d, 2Tx3d, 1Tx3d ipratropium-albuterol 0.5 mg-3 mg(2.5 mg base)/3 mL solution for nebulization 3 ml inhalation Q6H PRN (Reason: shortness of breath or wheezing) Qty: 90 0RF losartan 25 mg tablet 25 mg PO DAILY Qty: 30 0RF albuterol sulfate 90 mcg/actuation HFA aerosol inhaler 1 inh inhalation QID PRN (Reason: shortness of breath or wheezing) Qty: 6.7 0RF darunavir 800 mg tablet 800 mg PO DAILY emtricitabine-tenofovir (TDF) [Truvada] 200-300 mg tablet 1 tablet PO DAILY [place] Saline 0.65 % aerosol,spray 2 spray intranasal QID PRN (Reason: nasal congestion) ritonavir 100 mg tablet 100 mg PO DAILY guaifenesin [Mucus Relief ER] 600 mg Tablet Extended Release 12hr 1,200 mg PO Q12HR Qty: 30 0RF prednisone 10 mg tablet 10 mg PO DIRECTED Qty: 18 0RF Rx Instructions: take 3 tabs daily x 3 days then 2 tabs daily x 3 days then 1 tab daily x 3 days amoxicillin-pot clavulanate 875-125 mg tablet 1 tablet PO Q12H Qty: 4 0RF <Florian Garza MD - Last Filed: 05/27/25 19:49> Follow-up/Referrals: Jackie,KIMBERLI Naqvi [Primary Care Provider, Unknown] <Florian Garza MD - Last Filed: 05/27/25 19:49>
[2025-05-27] MEDS: IPRATROPIUM 0.5 MG/ALBUTEROL SULFATE 2.5 MG AMPUL.NEB 3 ML INHALATION (18:43)
[2025-05-27 18:46] VITALS: PULSE 104; RESP 28
[2025-05-27] MEDS: MORPHINE SULFATE (*CRX) 4 MG/ML INJ 2 MG IV PUSH (18:49)
[2025-05-27 18:53] LABS: Alanine Aminotransferase 32 U/L (6-35); Albumin Level 3.6 g/dL (3.5-5.1); Alkaline Phosphatase 76 U/L (38-126); Anion Gap 3 mmol/L (4-12); Aspartate Amino Transferase 50 U/L (14-36); Bilirubin,Total 0.2 mg/dL (0.2-1.3); Blood Urea Nitrogen 10 mg/dL (7-17); Calcium 8.3 mg/dL (8.4-10.2); Carbon Dioxide 37 mmol/L (22-30); Chloride 94 mmol/L (98-107); Estimated CRCL calculation 82 ml/min; Estimated Glomerular Filt Rate > 60; Glucose 103 mg/dL (65-110); Potassium 3.6 mmol/L (3.4-5.0); Sodium 134 mmol/L (137-145); Total Protein 6.9 g/dL (6.3-8.2)
[2025-05-27 18:55] LABS: Lipase 80 U/L (23-300); Magnesium 2.0 mg/dL (1.6-2.3)
[2025-05-27 18:56] LABS: Alveolar/Arterial O2 Gradient 107.0 mmHg; Fractional Inspired Oxygen 32 %; HCO3 ABG 35.6 mEq/l (22.0-26.0); Oxygen Content ABG 14.6 %vol (16.0-22.0); PO2 ABG 50.5 mmHg (80.0-100.0); PO2 FiO2 Ratio Arterial Blood 1.58 %
[2025-05-27 18:59] LABS: PCO2 ABG 60.4 mmHg (35.0-45.0)
[2025-05-27 19:00] LABS: Oxygen Saturation ABG 84.3 % (95.0-100.0)
[2025-05-27 19:01] LABS: Liters per Minute 3.0 LPM; Modified Allen's Test Pass; Site Drawn RIGHT RADIAL
[2025-05-27 19:01] LABS: INR 0.9; Prothrombin Time 12.2 Seconds (11.1-14.7)
[2025-05-27 19:02] LABS: Partial Thromboplastin Time 27.0 Seconds (22.3-36.8)
[2025-05-27 19:05] LABS: NT Pro B Type Natriuretic Pept 514 pg/mL (19.9-100); Troponin I < 0.012 ng/mL (0.000-0.034)
[2025-05-27 19:48] LABS: Influenza A QL RT-PCR Negative (Negative); Influenza B QL RT-PCR Negative (Negative); RSV RNA, RT-PCR Negative (Negative); SARS-CoV-2 RNA PCR Negative (Negative)
[2025-05-27 20:03] LABS: Procalcitonin 0.0 ng/mL
[2025-05-27] MEDS: cefTRIAXone 1 GM in SODIUM CHLORIDE 0.9% IV 50 ML 100 ML IVPB (20:50)
--- NOTE | 2025-05-27 20:51 | PM.IMHP ---
H&P: HPI History of Present Illness Date/Time: 05/27/25 20:51 Chief Complaint: Increased shortness of breath Narrative: 65-year-old female with a past medical history of COPD with chronic hypoxic respiratory failure on home O2 of 2 L, chronic prednisone therapy of 10 mg daily,, HV and essential hypertension who presented to the ER from home via EMS due to increased shortness of breath. Patient is usually on 2L home O2 but has been told by her classifying machine operator that she can increase up to 3 L if she is having trouble breathing. On EMS arrival to her residence she was satting 89% on 3 L. Her O2 sat improved from 89% up to 95% on 5 L. Her ABG in the ER on 3 L O2 demonstrated pH of 7.38 pCO2 of 60 PO2 of 50 with bicarb of 35.6 and O2 sat of 84.3. She received DuoNeb treatment and IV Solu-Medrol. She was sent for imaging with chest x-ray demonstrating right lower lobe pneumonia and subsequent CT for rule out of pulmonary embolism given tachycardia, tachypnea and pleuritic right-sided chest pain with CT demonstrating right middle lobe and lingular airspace consolidation consistent with pneumonia. She also had new bilateral upper lobe masses noted on my my review with Radiology suggesting abnormal hilar lymphadenopathy concerning for bronchogenic carcinoma and suspicious for metastatic disease to the lymph nodes. Given the pneumonia finding and the fact that patient met sepsis criteria blood cultures of were obtained and the patient was started on Rocephin and azithromycin. Patient had recently been hospitalized 04/12 through 04/16 in treated with Rocephin and azithromycin in subsequently discharged on Augmentin. She reports that she felt better after last hospitalization was started to develop some recurrent pleuritic right-sided chest pain about 3 days ago. Then today she noticed increased shortness of breath and increased cough. She reports that she always has a cough productive of dark sputum. Her sputum production is unchanged from baseline. She denies any fevers or chills. She reports a fair appetite. She has not had any nausea or vomiting. She denies any recent ill contacts. She has noticed increased wheezing. She reports that she always has labored respirations but was more so today. She did try using her home nebulizer treatments with only minimal improvement in symptoms. She reports that she feels moderately better since receiving steroids and breathing treatments in the ER. She reports that she is still having some pleuritic chest pain but did not like the side effects of the morphine. She stated that she did well in the past with Toradol. I offered her Toradol an option but told her that she would need to be on SCDs for DVT prophylaxis instead of Lovenox and then she declined the use of Toradol because she does not want SCDs. Review of Systems Review of Systems: 12 systems were reviewed with pertinent positives and negatives per HPI. Except as documented in the HPI, all other systems were reviewed and are negative. [facility] Past Medical History Medical History (Updated 05/27/25 @ 21:29 by Char Sierra DO) Diastolic dysfunction Without diagnosis of CHF. Echo 08/2022: EF 50 55%, grade 1 diastolic dysfunction, normal right ventricular systolic function, mild mitral and tricuspid valve regurgitation Rupture long head biceps tendon Chronic steroid use 10 mg prednisone daily Essential hypertension Chronic hypoxic respiratory failure, on home oxygen therapy Cavernous hemangioma HIV (human immunodeficiency virus infection) COPD (chronic obstructive pulmonary disease) Surgical History Surgical History History of tonsillectomy History of hysterectomy Family History Family History Grandparent Diabetes mellitus Mother Diabetes mellitus Social History Social History (Updated 05/27/25 @ 23:55 by Char Sierra DO) Social History: She lives at home with her . She states that they been for few years. Her daughter recently moved in with the patient's 2 grand children and the daughters 2 dogs and 1 cat. She reports she used to smoke 1 pack of cigarettes per day from the time she was 7 years old in till 2020. She denies any illicit substance use. It sounds as if the patient likely drink at least a moderate amount of alcohol if not drinking on a daily basis for many years but quit drinking in 1994. 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 Code status: Full code Surrogate decision maker: Tha () Smoking packs per day: 1 Smoking cigarettes per day: 20.0 Years smoked: 55 Smoking pack-years: 55.00 Smoking status: Former smoker Second hand tobacco smoke exposure: Yes Alcohol intake: former Alcohol use details: She used to drink somewhat frequently when she was a software quality analyst but quit in 1994. Substance use: never Substance use type: does not use Do You Feel Safe in your Home?: Yes Lack of Transportation: No Lack of Food: Never True Current Housing: I Have Housing Concerned About Future Housing: No Difficulty Paying Gas/Electric Bills: No Difficulty Paying for Meds: No Currently Unemployed: No Education: Bachelor's Degree Difficulty w/ Childcare or Family Care: No Spiritual care concerns: No Meds Home Medications and Allergies Home Medications ?Medication ?Instructions ?Recorded ?Confirmed ?Type budesonide-formoterol HFA 80 2 puff inhalation BID 03/09/22 04/12/25 History mcg-4.5 mcg/actuation aerosol inhaler (Symbicort) albuterol sulfate 90 mcg/actuation 1 inh inhalation QID PRN shortness 04/06/24 04/12/25 Rx aerosol inhaler of breath or wheezing #6.7 grams ipratropium 0.5 mg-albuterol 3 mg 3 ml inhalation Q6H PRN shortness 04/06/24 04/12/25 Rx (2.5 mg base)/3 mL nebulization of breath or wheezing #90 mL soln losartan 25 mg tablet 25 mg PO DAILY #30 tabs 04/06/24 04/12/25 Rx prednisone 10 mg tablet 10 mg PO DIRECTED #62 tabs 04/06/24 04/12/25 Rx tiotropium bromide 1.25 2 puff inhalation DAILY 07/12/24 04/12/25 History mcg/actuation mist for inhalation (Spiriva Respimat) darunavir 800 mg tablet 800 mg PO DAILY 04/12/25 04/12/25 History emtricitabine 200 mg-tenofovir 1 tablet PO DAILY 04/12/25 04/12/25 History disoproxil fumarate 300 mg tablet (Truvada) ritonavir 100 mg tablet 100 mg PO DAILY 04/12/25 04/12/25 History sodium chloride 0.65 % nasal spray 2 spray intranasal QID PRN nasal 04/12/25 04/12/25 History aerosol ([employer] [place]) congestion amoxicillin 875 mg-potassium 1 tablet PO Q12H #4 tabs 04/16/25 Rx clavulanate 125 mg tablet guaifenesin 600 mg tablet, 1,200 mg (2 x 600 mg) PO Q12HR #30 04/16/25 Rx extended release 12 hr (Mucus tabs Relief ER) prednisone 10 mg tablet 10 mg PO DIRECTED #18 tabs 04/16/25 Rx Allergies Allergy/AdvReac Type Severity Reaction Status Date / Time meperidine Allergy Unknown anaphlaxis Verified 04/12/25 17:57 orange Allergy Unknown Hives Verified 04/12/25 17:57 Vital Signs Vital Signs - 24 hr 05/27/25 18:19 05/27/25 18:23 05/27/25 18:46 Temperature 98.8 F Pulse Rate 102 H 104 H Respiratory Rate 35 H 28 H Blood Pressure 159/98 H Pulse Oximetry 96 95 Oxygen Delivery Nasal Cannula Nasal Cannula Oxygen Flow Rate 5 5 Exam Narrative: Weight 43.7 kg BMI 17.1 Const: Other: Appears older than stated age, cachectic, acutely ill-appearing, sitting up in bed with head of bed at almost 90? HENMT: Other: Head is normocephalic atraumatic, eyes are some what sunken, mucous membranes are moist, no oral pharyngeal erythema Eyes: Other: Pupils are equal and reactive, bilateral cataracts noted Neck: Other: No lymphadenopathy, no JVD Resp: Other: Conversational tachypnea, accessory muscle use, abdominal respirations speaking in 3-4 word sentences, end-expiratory wheezing bilateral anterior waddell Cardio: Other: Mildly tachycardic, 2+ bilateral radial pedal pulses, no murmur GI: Other: Firm, nontender, normoactive bowel sounds Skin: Other: Generalized pallor, non jaundice, 3-4 second cap refill, no mottling Neuro: Other: Alert oriented x4, speech is clear, no facial asymmetry, no localizing neurologic deficits noted during the course of conversation Extrem: Other: No cyanosis, no edema, moves all extremities equally, generalized muscle wasting Psych: Other: Appropriate mood and affect, pleasant and cooperative, judgment and insight intact H&P: Results Labs Labs: Laboratory Tests 05/27/25 18:26 05/27/25 18:26 05/27/25 05/27/25 05/27/25 18:26 18:53 19:01 WBC 12.9 H RBC 4.57 Hgb 11.8 L Hct 38.7 MCV 84.7 MCH 25.8 L MCHC 30.5 L RDW 16.1 H Plt Count 314 MPV 9.3 Immature Gran % (Auto) 0.4 Neut % (Auto) 80.7 H Lymph % (Auto) 10.0 L Stark % (Auto) 8.1 Eos % (Auto) 0.6 Baso % (Auto) 0.2 Lymph # (Auto) 1.29 Stark # (Auto) 1.0 H Eos # (Auto) 0.1 Baso # (Auto) 0.0 Abs Immat Gran (auto) 0.05 H Absolute Neuts (auto) 10.4 H Absolute Nucleated RBC 0.000 Nucleated RBC % 0.0 PT 12.2 INR 0.9 APTT 27.0 Puncture Site Right radial ABG pH 7.388 ABG pCO2 60.4 H* ABG pO2 50.5 L ABG PO2/FiO2 Ratio 1.58 ABG HCO3 35.6 H ABG O2 Saturation 84.3 L* ABG O2 Content 14.6 L ABG Base Excess 8.6 A-a Gradient 107.0 Oxyhemoglobin 82.2 L* Total Hemoglobin 12.6 O2 Delivery Device Nasal cannula O2 Liters/Min 3.0 FiO2 32 Sodium 134 L Potassium 3.6 Chloride 94 L Carbon Dioxide 37 H Anion Gap 3 L BUN 10 Creatinine 0.39 L Estim Creat Clear Calc 82 Estimated GFR > 60 Glucose 103 Lactic Acid 1.3 Calcium 8.3 L Magnesium 2.0 Total Bilirubin 0.2 AST 50 H ALT 32 Alkaline Phosphatase 76 Troponin I < 0.012 NT-Pro-B Natriuret Pep 514 H Total Protein 6.9 Albumin 3.6 Lipase 80 Procalcitonin 0.0 Influenza A (RT-PCR) Negative Influenza B (RT-PCR) Negative RSV (RT-PCR) Negative SARS-CoV-2 RNA (RT-PCR) Negative Impressions Chest X-Ray 05/27/25 19:52 Impression: 1: Bibasilar airspace disease, compatible with pneumonia. Chest CTA 05/27/25 20:02 IMPRESSION: 1. New bilateral upper lobe masses, largest measuring up to 2.4 cm, concerning for bronchogenic carcinoma. Abnormal hilar lymphadenopathy, suspicious for metastatic disease. 2: Right middle lobe and lingular airspace consolidation, consistent with pneumonia. 3: No large central pulmonary embolism. Evaluation of peripheral pulmonary arteries somewhat limited due to motion artifact and contrast bolus timing. EKG: Test Date: 2025-05-27 18:20:21 Measurements Intervals [place] Rate: 100 P: 52 NJ: 135 QRS: 64 QRSD: 89 T: 44 QT: 320 QTc: 413 Interpretive Statements SINUS TACHYCARDIA CANNOT R/O SEPTAL INFARCT, AGE INDETERMINATE BASELINE ARTIFACT- I, II, AVR, AVL, AVF, V3-V6 ABNORMAL ECG No previous ECG available for comparison All imaging and EKGs personally reviewed and interpreted. And unless stated otherwise agree with radiologic and cardiology interpretation. Assessment and Plan Assessment and plan (1) Sepsis: Qualifiers: Acute respiratory failure type: unspecified Sepsis acute organ dysfunction status: with acute organ dysfunction Sepsis type: sepsis due to unspecified organism Severe sepsis acute organ dysfunction type: acute respiratory failure Severe sepsis shock status: without septic shock Qualified Code(s): A41.9 - Sepsis, unspecified organism; R65.20 - Severe sepsis without septic shock; J96.00 - Acute respiratory failure, unspecified whether with hypoxia or hypercapnia Code(s): A41.9 - Sepsis, unspecified organism Status: Acute (2) Community acquired pneumonia: Qualifiers: Laterality: unspecified laterality Qualified Code(s): J18.9 - Pneumonia, unspecified organism Code(s): J18.9 - Pneumonia, unspecified organism Status: Acute (3) COPD with acute lower respiratory infection: Code(s): J44.0 - Chronic obstructive pulmonary disease with (acute) lower respiratory infection Status: Acute (4) Acute on chronic respiratory failure with hypoxia and hypercapnia: Code(s): J96.21 - Acute and chronic respiratory failure with hypoxia; J96.22 - Acute and chronic respiratory failure with hypercapnia Status: Acute (5) Lung mass: Code(s): R91.8 - Other nonspecific abnormal finding of lung field Status: Acute (6) HIV (human immunodeficiency virus infection): Qualifiers: HIV symptom status: unspecified Qualified Code(s): Z21 - Asymptomatic human immunodeficiency virus [HIV] infection status Code(s): B20 - Human immunodeficiency virus [HIV] disease Status: Acute (7) Chronic steroid use: Status: Acute Plan Patient presents with bilateral pneumonia complicated by underlying chronic hypoxic respiratory failure with development of acute on chronic hypoxic respiratory failure and acute hypercapnic respiratory failure of this hospitalization due to lower respiratory tract infection with associated sepsis. Patient meets sepsis criteria with tachycardia, tachypnea and leukocytosis but has a negative procalcitonin. Her condition is more complicated to treat due to her underlying chronic HIV and chronic steroid dependent respiratory failure. Blood cultures were obtained prior to antibiotic administration. Patient was initially started on Rocephin and azithromycin but given that she was recently treated within the last 4 weeks with the same antibiotic regimen in given her multiple cor morbidities will change antibiotic coverage to cefepime and vancomycin with continued azithromycin. Will check MRSA screen. Will check HIV viral load and CD4 count. Will continue the patient's home anti-retroviral medications and Symbicort. Will place patient on scheduled nebulizer treatments with DuoNeb q.6 hours. Will wean oxygen as tolerated. The patient did not receive IV fluid bolus in the ER will give patient 1 L IV fluid bolus this is near her 30 mL/kilos fluid bolus given her chronic low body weight. Will place patient on a regular diet and consult dietitian for nutritional supplements. Patient's highest weight within our system was documented around 50 kg in 2021. Her weight in April of 2024 was 41 kg her weight has remained relatively stable for the last year. Her low body weight is likely due to component of her HIV and chronic respiratory failure with respiratory cachexia. Will attempt to obtain sputum specimen and send for Gram stain and culture. Will consult pulmonology in a.m. for further recommendations. Patient is mildly hypercapnic compared to baseline but pH is compensated. Will hold off on BiPAP at this time as patient's respiratory status has improved. Will consider repeat ABG in a.m. depending on response to treatment. Will repeat CBC and electrolyte panel in a.m. MEDICAL DECISION MAKING NARRATIVE -Spoke with the ED provider in detail regarding patient's evaluation, workup and management -Patient seen and examined at bedside -Collaborated with patient's nurse at the bedside in detail and addressed all concerns -Labs, electrolytes, radiology, investigations and test results personally reviewed and interpreted unless otherwise specified -ED/Consult/Nursing/Ancilliary notes on the chart reviewed and appreciated -Spoke with patient at bedside and diagnosis and plan of care was discussed. All questions answered. Quality VTE Prophylaxis VTE prophylaxis: pharmacologic ordered (Lovenox 30 mg subQ daily. Lower dose was utilized given patient's weight is only 43 kg) Hospitalist MIPS Advance Care Plan I have confirmed that the patient's Advanced Care Plan is present, code status is documented, or surrogate decision maker is listed in patient medical record.: Yes Medication Reconciliation I have utilized all available resources to obtain, update and review the patients current medications (includes all prescriptions, OTC, herbals, cannabis, and nutritional supplements).: Yes
[2025-05-27 21:27] LABS: Add Urine Microscopic? YES; Appearance Urine Clear (Clear); Glucose Urine UA Negative (Negative); Leukocyte Esterase Ur Negative LEU/UL (Negative); Nitrate Urine Negative (Negative); Non Pathogenic Casts 0-2; Specific Grav Ur > 1.045 (1.001-1.035)
[2025-05-27] MEDS: SODIUM CHLORIDE 0.9% IV 1,000 ML 999 ML IV CONT (21:30)
[2025-05-27] MEDS: AZITHROMYCIN IV 500 MG in SODIUM CHLORIDE 0.9% IV 250 ML IVPB (21:30)
[2025-05-27 22:35] VITALS: BMI 17.2
--- NOTE | 2025-05-27 22:39 | ADMGEN ---
This patient, Roxanne Davey, was admitted to Medical Room 251-01. Patient/family oriented to hospital policies and general routines including ID bracelet, bed and alarms, visiting hours, pain management, procedures, bathroom and other care routines, personal items, smoking policy, room service/diet, and visiting hours. Information on how to activate the Rapid Response Team has been discussed. Patient/Family are encouraged to report perceived risks to care and to ask questions if they do not understand what they are told or what they should do.
[2025-05-28] VITALS (22 sets, daily range): BP systolic 128–165; BP diastolic 78–99; PULSE 69–101; RESP 20–24; TEMP 36.1–36.7; O2SAT 91–96; BMI 17.2
[2025-05-28] MEDS: KETOROLAC 15 MG/ML VIAL (*BKC) IV PUSH (00:07)
[2025-05-28] MEDS: VANCOMYCIN HCL 1,000 MG in SODIUM CHLORIDE 0.9% IV 250 ML 250 MG IVPB (00:09)
[2025-05-28] MEDS: IPRATROPIUM 0.5 MG/ALBUTEROL SULFATE 2.5 MG AMPUL.NEB 3 ML INHALATION ×4 (01:01→19:46)
[2025-05-28 01:09] LABS: MRSA (PCR) DETECTED (NOT DETECTE)
[2025-05-28] MEDS: CEFEPIME 2 GM in SODIUM CHLORIDE 0.9% IV 50 ML 100 ML IVPB ×3 (01:43→18:01)
[2025-05-28] MEDS: SODIUM CHLOR 3% 15 ML NEB (RESPIRATORY THERAPY) 6 ML INHALATION (04:26)
--- NOTE | 2025-05-28 04:36 | PCRCNOTE ---
unable to produce sputum.
--- NOTE | 2025-05-28 04:40 | PCRCNOTE ---
Sputum was produced small byrne
[2025-05-28 05:04] LABS: Hematocrit 36.8 % (37.0-47.0); Hemoglobin 11.3 g/dL (12.0-15.0); Mean Corpuscular HGB Conc 30.7 g/dl (32-36); Mean Corpuscular Hemoglobin 26.5 pg (26-34); Mean Corpuscular Volume 86.4 fl (80-100); Platelet Count Result 306 k/mm3 (150-375); Red Blood Count 4.26 M/mm3 (4.2-5.4); White Blood Count 13.7 K/mm3 (4.5-10.0)
[2025-05-28 05:16] LABS: Anion Gap 3 mmol/L (4-12); Blood Urea Nitrogen 9 mg/dL (7-17); Calcium 8.7 mg/dL (8.4-10.2); Carbon Dioxide 35 mmol/L (22-30); Chloride 96 mmol/L (98-107); Estimated CRCL calculation 83 ml/min; Estimated Glomerular Filt Rate > 60; Glucose 166 mg/dL (65-110); Potassium 4.2 mmol/L (3.4-5.0); Sodium 134 mmol/L (137-145)
[2025-05-28 05:45] LABS: Anisocytosis 1+; Band Neutrophils Percent 6 % (0-6); Eosinophils Absolute Manual 0.13 K/mm3 (0.02-0.50); Eosinophils Percent Manual 1 % (0-4); Lymphocytes Absolute Manual 0.13 K/mm3 (1.1-4.5); Lymphocytes Percent Manual 1.0 % (18-44); Neutrophils Absolute Manual 13.42 K/mm3 (1.3-6.7); Neutrophils Percent Manual 92 % (46-73); Total Cells Counted 100
[2025-05-28 05:46] LABS: Schistocytes None Seen; Smudge Cells PRESENT
--- NOTE | 2025-05-28 07:09 | P.PNIM_ITS ---
Progress Note: A&P Assessment and Plan (1) Sepsis: Qualifiers: Acute respiratory failure type: unspecified Sepsis acute organ dysfunction status: with acute organ dysfunction Sepsis type: sepsis due to unspecified organism Severe sepsis acute organ dysfunction type: acute respiratory failure Severe sepsis shock status: without septic shock Qualified Code(s): A41.9 - Sepsis, unspecified organism; R65.20 - Severe sepsis without septic shock; J96.00 - Acute respiratory failure, unspecified whether with hypoxia or hypercapnia Code(s): A41.9 - Sepsis, unspecified organism Status: Acute Assessment and Plan: - sepsis present on admission evidenced by tachycardia, tachypnea, increased hypoxia, leukocytosis - LA WNL, BP stable - received 1L NS in ED - source: pneumonia, continue management as below - follow-up blood cultures (2) Community acquired pneumonia: Qualifiers: Laterality: unspecified laterality Qualified Code(s): J18.9 - Pneumonia, unspecified organism Code(s): J18.9 - Pneumonia, unspecified organism Status: Acute Assessment and Plan: - recent admission 04/2025 for pneumonia, treated with Rocephin and azithromycin, discharged on Levaquin - CTA chest with RML and lingular airspace consolidation consistent with pneumonia - MRSA DNA positive - continue cefepime, azithromycin, vancomycin - blood cultures, sputum culture, legionella/strep antigens and mycoplasma antibodies pending - infectious disease consulted in light of history of HIV and recurrent pneumonia, appreciate recs (3) COPD with acute lower respiratory infection: Code(s): J44.0 - Chronic obstructive pulmonary disease with (acute) lower respiratory infection Status: Acute Assessment and Plan: - no wheezing this AM. Has some minimally increased sputum production and dyspnea - on IV solumedrol - will defer to pulmonology, but likely can stop steroids - continue home Symbicort, Spiriva - continue Duonebs, Mucinex. (4) Acute on chronic respiratory failure with hypoxia and hypercapnia: Code(s): J96.21 - Acute and chronic respiratory failure with hypoxia; J96.22 - Acute and chronic respiratory failure with hypercapnia Status: Acute Assessment and Plan: - on 2-3L NC O2 baseline - ABG with pH 7.38, pCO2 60.4, pO2 50.5. pCO2 higher than baseline, but work of breathing improved so BiPAP was deferred. - required up to 5L in ED, now back to baseline 3L - monitor O2 sat (5) Lung mass: Code(s): R91.8 - Other nonspecific abnormal finding of lung field Status: Acute Assessment and Plan: - CTA chest with new bilateral upper lobe masses, largest 2.4 cm concerning for bronchogenic carcinoma - has history of liver - pulmonology consulted (6) HIV (human immunodeficiency virus infection): Qualifiers: HIV symptom status: unspecified Qualified Code(s): Z21 - Asymptomatic human immunodeficiency virus [HIV] infection status Code(s): B20 - Human immunodeficiency virus [HIV] disease Status: Acute Assessment and Plan: - managed on darunavir, ritonavir, and Truvada - viral load and CD4 count pending - ID consulted (7) Chronic steroid use: Status: Acute Assessment and Plan: - on prednisone 10mg daily Subjective Date/time seen: 05/28/25 07:09 Interval history: 65-year-old female with a past medical history of COPD with chronic hypoxic respiratory failure on home O2 of 2 L, chronic prednisone therapy of 10 mg daily, HIV and essential hypertension who presented to the ER from home via EMS due to increased shortness of breath. Patient seen and examined at bedside. Feeling better, dyspnea improved. Review of Systems Review of Systems: All systems reviewed & are unremarkable except as noted in HPI and below Exam Narrative: General: NAD, chronically ill-appearing Eyes: EOMI ENT: neck supple Cardiovascular: Regular rate and rhythm Respiratory: + rhonchi of RLL, respirations even and unlabored on 3L NC Gastrointestinal: Soft, non tender Genitourinary: no suprapubic tenderness Musculoskeletal: No edema Skin: warm, dry Neuro: Alert. Psych: Mood appropriate Objective Data Vital Signs Vital Signs: Vital Signs - 24 hr 05/27/25 18:19 05/27/25 18:23 05/27/25 18:46 Temperature 98.8 F Pulse Rate 102 H 104 H Respiratory Rate 35 H 28 H Blood Pressure 159/98 H Pulse Oximetry 96 95 Oxygen Delivery Nasal Cannula Nasal Cannula Oxygen Flow Rate 5 5 Fraction of Inspired Oxygen 05/28/25 00:00 05/28/25 00:07 05/28/25 01:03 Temperature 97.5 F L Pulse Rate 87 93 95 Respiratory Rate 20 20 Blood Pressure 130/99 H Pulse Oximetry 94 Oxygen Delivery Oxygen Flow Rate Fraction of Inspired Oxygen 05/28/25 01:06 05/28/25 01:12 05/28/25 04:00 Temperature Pulse Rate 98 94 71 Respiratory Rate 20 20 Blood Pressure Pulse Oximetry 91 Oxygen Delivery Nasal Cannula Oxygen Flow Rate 2 Fraction of Inspired Oxygen 28 05/28/25 04:12 Temperature 98.0 F Pulse Rate 69 Respiratory Rate 20 Blood Pressure 128/78 Pulse Oximetry 91 Oxygen Delivery Oxygen Flow Rate Fraction of Inspired Oxygen Intake/Output Intake/Output: Intake & Output 05/25/25 05/26/25 05/27/25 05/28/25 23:59 23:59 23:59 23:59 Intake Total 50 450 Balance 50 450 Meds/Results Medications: Active Medications Generic Name Dose Route Start Last Admin Trade Name Freq PRN Reason Stop Dose Admin Albuterol/Ipratropium 3 ml 05/28/25 02:00 05/28/25 01:01 Ipratropium 0.5 Mg/Albuterol Sulfate 2.5 Mg Ampul.Neb 3 Ml INHALATION 3 ml Q6HRT [facility] Administration Enoxaparin Sodium 30 mg 05/28/25 09:00 Enoxaparin 30 Mg/0.3 Ml Syringe SUB-Q DAILY [facility] Azithromycin 500 mg/ Sodium 250 mls @ 250 mls/hr 05/28/25 21:00 Chloride IVPB 05/31/25 21:59 Q24H [facility] Vancomycin HCl 750 mg in 250 mls @ 250 mls/hr 05/28/25 11:00 Vancomycin 750 Mg/Ns 250 Ml IVPB Q12H [facility] Cefepime HCl 2 gm/ Sodium 50 mls @ 100 mls/hr 05/28/25 10:00 Chloride IVPB Q8H [facility] Methylprednisolone Sodium Succinate 60 mg 05/28/25 00:00 05/28/25 05:40 Methylprednisolone Sod Succ 125 Mg Vial IV PUSH 60 mg Q6HR SOHAM Administration Nystatin 5 ml 05/28/25 09:00 Nystatin 100,000 Units/Ml Susp 5 Ml Oral.Susp PO QID [facility] Radiology Results: ITS Impressions Chest X-Ray 05/27/25 19:52 Impression: 1: Bibasilar airspace disease, compatible with pneumonia. Chest CTA 05/27/25 20:02 IMPRESSION: 1. New bilateral upper lobe masses, largest measuring up to 2.4 cm, concerning for bronchogenic carcinoma. Abnormal hilar lymphadenopathy, suspicious for metastatic disease. 2: Right middle lobe and lingular airspace consolidation, consistent with pneumonia. 3: No large central pulmonary embolism. Evaluation of peripheral pulmonary arteries somewhat limited due to motion artifact and contrast bolus timing. Labs Labs: Laboratory Results - last 24 hr 05/27/25 05/27/25 05/27/25 18:26 18:53 19:01 WBC 12.9 H RBC 4.57 Hgb 11.8 L Hct 38.7 MCV 84.7 MCH 25.8 L MCHC 30.5 L RDW 16.1 H Plt Count 314 MPV 9.3 Immature Gran % (Auto) 0.4 Neut % (Auto) 80.7 H Lymph % (Auto) 10.0 L Ralls % (Auto) 8.1 Eos % (Auto) 0.6 Baso % (Auto) 0.2 Lymph # (Auto) 1.29 Ralls # (Auto) 1.0 H Eos # (Auto) 0.1 Baso # (Auto) 0.0 Abs Immat Gran (auto) 0.05 H Absolute Neuts (auto) 10.4 H Absolute Nucleated RBC 0.000 Total Counted Neutrophils % (Manual) Band Neutrophils % Lymphocytes % (Manual) Eosinophils % (Manual) Nucleated RBC % 0.0 Abs Neuts (Manual) Abs Lymphs (Manual) Absolute Eos (Manual) Smudge Cells Platelet Estimate Clumped Platelets Anisocytosis Schistocytes PT 12.2 INR 0.9 APTT 27.0 Puncture Site Right radial ABG pH 7.388 ABG pCO2 60.4 H* ABG pO2 50.5 L ABG PO2/FiO2 Ratio 1.58 ABG HCO3 35.6 H ABG O2 Saturation 84.3 L* ABG O2 Content 14.6 L ABG Base Excess 8.6 A-a Gradient 107.0 Oxyhemoglobin 82.2 L* Total Hemoglobin 12.6 O2 Delivery Device Nasal cannula O2 Liters/Min 3.0 FiO2 32 Sodium 134 L Potassium 3.6 Chloride 94 L Carbon Dioxide 37 H Anion Gap 3 L BUN 10 Creatinine 0.39 L Estim Creat Clear Calc 82 Estimated GFR > 60 Glucose 103 Lactic Acid 1.3 Calcium 8.3 L Magnesium 2.0 Total Bilirubin 0.2 AST 50 H ALT 32 Alkaline Phosphatase 76 Troponin I < 0.012 NT-Pro-B Natriuret Pep 514 H Total Protein 6.9 Albumin 3.6 Lipase 80 Procalcitonin 0.0 Urine Color Urine Appearance Urine pH Ur Specific [place] Urine Protein Urine Glucose (UA) Urine Ketones Ur Blood (Man) Urine Nitrate Urine Bilirubin Urine Urobilinogen Leukocyte Esterase Rfl Urine RBC Urine WBC Ur Squamous Epith Cells Urine Bacteria Urine Casts Nasal MRSA (PCR) Influenza A (RT-PCR) Negative Influenza B (RT-PCR) Negative RSV (RT-PCR) Negative SARS-CoV-2 RNA (RT-PCR) Negative 05/27/25 05/27/25 05/28/25 21:16 23:26 04:37 WBC 13.7 H RBC 4.26 Hgb 11.3 L Hct 36.8 L MCV 86.4 MCH 26.5 MCHC 30.7 L RDW 16.4 H Plt Count 306 MPV 9.2 Immature Gran % (Auto) Not Reportable Neut % (Auto) Not Reportable Lymph % (Auto) Not Reportable Ralls % (Auto) Not Reportable Eos % (Auto) Not Reportable Baso % (Auto) Not Reportable Lymph # (Auto) Not Reportable Ralls # (Auto) Not Reportable Eos # (Auto) Not Reportable Baso # (Auto) Not Reportable Abs Immat Gran (auto) Not Reportable Absolute Neuts (auto) Not Reportable Absolute Nucleated RBC Not Reportable Total Counted 100 Neutrophils % (Manual) 92 H Band Neutrophils % 6 Lymphocytes % (Manual) 1.0 L Eosinophils % (Manual) 1 Nucleated RBC % Not Reportable Abs Neuts (Manual) 13.42 H Abs Lymphs (Manual) 0.13 L Absolute Eos (Manual) 0.13 Smudge Cells Present Platelet Estimate Adequate Clumped Platelets Present Anisocytosis 1+ Schistocytes None seen PT INR APTT Puncture Site ABG pH ABG pCO2 ABG pO2 ABG PO2/FiO2 Ratio ABG HCO3 ABG O2 Saturation ABG O2 Content ABG Base Excess A-a Gradient Oxyhemoglobin Total Hemoglobin O2 Delivery Device O2 Liters/Min FiO2 Sodium 134 L Potassium 4.2 Chloride 96 L Carbon Dioxide 35 H Anion Gap 3 L BUN 9 Creatinine 0.39 L Estim Creat Clear Calc 83 Estimated GFR > 60 Glucose 166 H Lactic Acid Calcium 8.7 Magnesium Total Bilirubin AST ALT Alkaline Phosphatase Troponin I NT-Pro-B Natriuret Pep Total Protein Albumin Lipase Procalcitonin Urine Color Yellow Urine Appearance Clear Urine pH 7.5 Ur Specific [place] > 1.045 H Urine Protein Trace Urine Glucose (UA) Negative Urine Ketones Negative Ur Blood (Man) Trace Urine Nitrate Negative Urine Bilirubin Negative Urine Urobilinogen 2.0 H Leukocyte Esterase Rfl Negative Urine RBC 3-5 H Urine WBC 0-5 Ur Squamous Epith Cells Occasional Urine Bacteria None seen Urine Casts 0-2 Nasal MRSA (PCR) Detected A* Influenza A (RT-PCR) Influenza B (RT-PCR) RSV (RT-PCR) SARS-CoV-2 RNA (RT-PCR) Quality VTE Prophylaxis VTE prophylaxis: mechanical ordered
[2025-05-28 08:04] LABS: CRP 14.7 mg/dL (<1.0)
[2025-05-28] MEDS: NYSTATIN 100,000 UNITS/ML SUSP 5 ML ORAL.SUSP PO ×4 (09:03→20:09)
--- NOTE | 2025-05-28 09:07 | PM.CNPUL ---
Assessment and Plan Assessment and plan (1) Community acquired pneumonia: Qualifiers: Laterality: unspecified laterality Qualified Code(s): J18.9 - Pneumonia, unspecified organism Code(s): J18.9 - Pneumonia, unspecified organism Status: Acute Assessment and Plan: Patient with a history of COPD and severe apical predominant panlobular emphysema, HIV positive, treated for pneumonia ceftriaxone and azithromycin in the hospital from 04/12 to 04/16 and discharged on Augmentin. She did improved back to her baseline. Currently she has 7 days of shortness of breath, change in her phlegm, right-sided pleuritic chest pain, worsening cough and shortness of breath with a leukocytosis at 12.[address] angiogram of the chest that shows infiltrates and consolidation in the right middle lobe and lingula. She has MRSA swab positive, COVID, influenza, RSV RT PCR assay negative. 05/28/25 Plan: Patient was changed to vancomycin, cefepime and azithromycin was continued. She is feeling better today and says that her pleuritic pain is now resolved, her phlegm is gone from green to yellow, she is afebrile but remains with a leukocytosis 13.7. I have sent for urine pneumococcal, urine Legionella, extended respiratory pathogen panel and serum mycoplasma IgM. Infectious Disease has been consulted. I will attempt to wean her steroids quickly back to her baseline of 10 mg of prednisone a day. Will continue these antibiotics currently. Id consult pending for management of antibiotics as well as antiretrovirals. (2) COPD (chronic obstructive pulmonary disease): Code(s): J44.9 - Chronic obstructive pulmonary disease, unspecified Status: Acute Assessment and Plan: Regarding her COPD the patient was diagnosed about 5 years ago. She has been on oxygen 2 years. She has been on home prednisone 10 mg a day for 2-3 years and has never been attempted to be weaned off. PFTs 06/21/2024 with an FEV1 of 0.82 L, 35% predicted, ratio 39%, hyperinflation, severely decreased DLCO at remain moderately decreased when adjusted for alveolar volume and in comparison to 08/05/2022 there is worsening in her FVC, FEV1 and diffusing capacity and increase in her total lung capacity, functional residual capacity and residual volume. She tells me she uses 2 L at rest, 3 L with activity and 2-1/2 L when she sleeps. 2 L NC ABG 04/04/2024 7.43/41/69. On a good day she can walk 1.5 room lengths. Patient was initially wheezing but currently has no wheezes. ABG on 3 L in the emergency room 7.39/60/51. 05/28/25: Plan: Patient receive Solu-Medrol 60 mg IV q.6 hours x3 doses, last at 5:40 AM this morning. Given her bilateral pneumonia I will attempt to quickly wean her steroids back to her baseline and will place her on 40 mg p.o. q.day starting on 05/29/2025. I will continue ipratropium and albuterol nebulizers q.6 hours. This will provide adequate beta agonist and muscarinic antagonist and I will discontinue her home Advair and incruse ellipta. Will start guaifenesin 1200 mg p.o. b.i.d.. I will treat the patient for pneumonia and or COPD exacerbation and eventually repeat a blood gas to determine if she remains hypercarbic. Goal saturation 90-94%, adjust oxygen accordingly. (3) Lung mass: Code(s): R91.8 - Other nonspecific abnormal finding of lung field Status: Acute Assessment and Plan: Patient with 55 pack year tobacco use, quit in 2021. CT angiogram of the chest was reviewed with Radiology and was negative for PE, and compared to 02/01/2024 there was unchanged upper lobe calcified granulomas and severe panlobular emphysema, there were new right middle lobe and lingula dense infiltrates with consolidation and a new right upper lobe 2.4 cm nodule with right hilar lymph node measuring 4.1 x 2.1 cm that was not associated with infiltrates. There is a new mass in the lingula measuring 2 x 1.1 cm and this was associated with adjacent infiltrates. 05/28/2025: Plan: Patient does desire further workup of this right lung mass. patient cannot undergo a CT-guided biopsy at [facility] as she is on supplemental oxygen and deemed too high risk to perform the procedure at [place]. Furthermore the mass is centrally located. Patient has a right hilar mass and ideally she would undergo bronchoscopy with EBUS and sampling of the right hilar mass which should be performed after she has been treated for her acute pneumonia. Bronchoscopy with EBUS cannot be done at [facility]. Patient is willing to be referred to a higher level of care facility and at this point will treat the patient for her acute pneumonia and when she is recovered will refer to [facility] in [place], Dr. Smallwood, as an outpatient. History of Present Illness History of Present Illness Consult date: 05/28/25 Chief complaint: COPD, pneumonia Narrative: 65-year-old with a history of GOLD grade 3 group E COPD on home oxygen 2 L and home prednisone 10 a day, HIV on antiretrovirals, HTN. Regarding her COPD the patient was diagnosed about 5 years ago. She has been on oxygen 2 years. She has been on home prednisone 10 mg a day for 2-3 years and has never been attempted to be weaned off. PFTs 06/21/2024 with an FEV1 of 0.82 L, 35% predicted, ratio 39%, hyperinflation, severely decreased DLCO at remain moderately decreased when adjusted for alveolar volume and in comparison to 08/05/2022 there is worsening in her FVC, FEV1 and diffusing capacity and increase in her total lung capacity, functional residual capacity and residual volume. She tells me she uses 2 L at rest, 3 L with activity and 2-1/2 L when she sleeps. 2 L NC ABG 04/04/2024 7.43/41/69. On a good day she can walk 1.5 room lengths. patient smoked tobacco from age 7 to age 62 at 1 pack per day. 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 She lives in [place] but never worked in the [employer], denies sand blasting, welding, asbestos were, professional painting, mining, quarry work or construction work. Patient is HIV and previously saw Dr. Franco and was on antiretroviral medications and she tells me her levels were undetectable. Dr. Franco than retired and she could not find a physician but continued to take medicines. Currently she is seeing a PCP who prescribes her medicines. She does not know the status of her viral load. Patient states that she does have continued problems with thrush. Recently admitted to [facility] 04/12/2025 through 04/16/2025. treated for COPD exacerbation and pneumonia. Discharged on Augmentin and to continue her Symbicort, Spiriva and prednisone 10 Ed. continue her retrovirals. Patient tells me she her got back to her normal from a respiratory viewpoint. Approximately 7 days ago the patient developed shortness of breath initially with no change in her phlegm. over the last 3 days she developed right-sided pleuritic chest pain. Over the last 2 days she developed cough with worsening phlegm that was now dark green. She had increased wheezing and shortness of breath. Her dyspnea on exertion worsened and she presented to the emergency department. in the emergency in her blood pressure is 159/98, heart rate 102, respirations 35, she is placed on 5 L nasal cannula saturations 96%. She had end expiratory wheezes. Procalcitonin 0.0. BNP 514. MRSA nasal swab positive. COVID influenza and RSV RT PCR assay negative. CT angiogram of the chest was reviewed with Radiology and was negative for PE, and compared to 02/01/2024 there was unchanged upper lobe calcified granulomas and severe panlobular emphysema, there were new right middle lobe and lingula dense infiltrates with consolidation and a new right upper lobe 2.4 cm nodule with right hilar lymph node measuring 4.1 x 2.1 cm that was not associated with infiltrates. There is a new mass in the lingula measuring 2 x 1.1 cm and this was associated with adjacent infiltrates. She was treated for COPD exacerbation and pneumonia with Solu-Medrol, bronchodilators, ceftriaxone and azithromycin. ceftriaxone and azithromycin were changed to cefepime and vanco on admission to the hospital. 05/28/2025: The patient tells me she is feeling better, she has 50% back to her normal, her phlegm is gone from dark green to yellow and her right-sided pleuritic pain is resolved. She is afebrile. Currently she is on 3 L nasal cannula saturations 93%. Her white blood cell count is 13.7, her creatinine is 0.39, her CRP is 14.7. DATA: 05/27/25: EXAMINATION: CTA chest PE protocol INDICATION: Right-sided pleuritic chest pain. COMPARISON: CT dated 02/01/2024. FINDINGS: Study is technically adequate. No evidence for pulmonary embolism. There is bilateral hilar lymphadenopathy. There is subcarinal lymphadenopathy. Right hilar lymph node measuring 4.1 x 2.1 cm. No significant pleural or pericardial effusion. There is a densely calcified granuloma in the right upper lobe. There is scarring in the left upper lobe with calcified granuloma. There is a new mass in the right upper lobe, image 69, measuring 2.4 x 1.8 cm, concerning for bronchogenic carcinoma. There is a new mass in the lingula with irregular configuration measuring 2 x 1.1 cm. There is right middle lobe and lingular airspace consolidation. No pneumothorax. There is emphysema. There is 2.9 cm hypodense mass of the right hepatic lobe with marginal enhancement. Mild thoracic spondylosis with accentuated kyphosis. There is a second peripherally enhancing mass in the left hepatic lobe measuring 1.8 cm. IMPRESSION: 1. New bilateral upper lobe masses, largest measuring up to 2.4 cm, concerning for bronchogenic carcinoma. Abnormal hilar lymphadenopathy, suspicious for metastatic disease. 2: Right middle lobe and lingular airspace consolidation, consistent with pneumonia. 3: No large central pulmonary embolism. Evaluation of peripheral pulmonary arteries somewhat limited due to motion artifact and contrast bolus timing. 06/21/2024: This is a pulmonary function test with spirometry, plethysmography and diffusing capacity. The test was performed and results interpreted in accordance with the 2019 and 2005 ATS/ERS Task Force guidelines respectively using the Global Lung Function Initiative-2012 reference equations. Patient demonstrated good effort and cooperation. Reproducibility criteria were met. The quality of the spirometry maneuver was Grade A. Findings: Spirometry: There is decreased maximal expiratory airflow at all lung volumes with concave expiratory flow tracing. The FVC is 2.09 L, 70% predicted. The FEV1 is 0.82 L, 35% predicted. The FEV1: FVC ratio is 39%. Plethysmography: The total lung capacity is 6.74 L, 137% predicted. The functional residual capacity is 4.62 L, 167% predicted. The residual volume is 4.59 L, 232% predicted. The residual volume: Total lung capacity ratio 68%. Diffusing capacity: The diffusing capacity unadjusted for hemoglobin and carboxy hemoglobin is 6.1, 29% predicted. The diffusing capacity adjusted for alveolar volume is 2.06, 46% predicted. In comparison to previous pulmonary function testing on 08/05/2022, the pre bronchodilator FVC has decreased from 2.80 L to 2.09 L. The pre bronchodilator FEV1 has decreased from 1.19 L to 0.82 L. The total lung capacity is unchanged from 6.30 L to 6.74 L. The functional residual capacity is increased from 3.81 L to 4.62 L. the residual volume has increased from 3.45 L to 4.59 L. the residual volume: Total lung capacity ratio has increased from 55% to 68%. The diffusing capacity unadjusted for hemoglobin and carboxyhemoglobin is decreased from 9.1 to 6.1. The diffusing capacity adjusted for alveolar volume has decreased from 2.55 to 2.06 Impression: There is a severe obstructive abnormality. The increase in residual volume to total lung volume ratio is consistent with hyperinflation from an obstructive abnormality. The diffusing capacity unadjusted for hemoglobin and carboxyhemoglobin is severely decreased and remains moderately decreased when adjusted for alveolar volume. In compared to previous pulmonary function testing on 08/05/2022, there has been a greater than anticipated time dependent decrease in the FVC, FEV1, and diffusing capacity. There has been a greater than anticipated time dependent increase in the total lung capacity, functional residual capacity, residual volume, and the residual volume: Total lung capacity ratio. clinical correlation is recommended. 03/02/24: EXAMINATION: MR abdomen wo/w con INDICATION: Liver mass. TECHNIQUE: Magnetic resonance imaging (MRI) of the abdomen was performed without and with 9 mL MultiHance intravenous contrast. COMPARISON: Chest CT 02/01/2024 FINDINGS: There are 5 hemangiomas in the liver measuring up to 3.2 cm characterized by interrupted peripheral puddling of contrast. There is an 8 mm arterially hyperenhancing mass in left hepatic lobe without washout, likely a hemangioma or focal nodular hyperplasia. There are a few cysts in the liver measuring up to 7 mm. The gallbladder, spleen, pancreas, adrenal glands, and kidneys are normal. There are no dilated loops of bowel. IMPRESSION: 1. Benign masses in the liver. 02/01/2024: CT Scan of the Chest without Contrast: Clinical Indication: Lung cancer screening, nicotine dependence Technique: Contiguous sections were acquired throughout the chest without intravenous contrast. Dose reduction technique was used on this scan by utilizing automated exposure control and iterative reconstruction technique. The dose-length product (DLP) was 66.12 mGy-cm. Findings: There is no evidence of any significant mediastinal, hilar or axillary lymphadenopathy. Coronary artery calcifications are present.. There is no evidence of pleural or pericardial effusion. There is severe emphysema with biapical scarring and biapical calcified granulomas. There is a 4 mm right upper lobe pulmonary nodule (axial image 52). Images through the upper abdomen reveal 2.9 cm hypodense, noncystic hepatic mass in the right hepatic lobe there is an additional 1.6 cm hypodense mass in the anterior left hepatic lobe.. Chronic compression deformity of L1 noted. Impression: Lung RADS 2-S: Benign appearance. 12 month follow-up screening CT advised. 2 hypodense hepatic masses, measuring 2.9 cm and 1.6 cm in size respectively. These are indeterminate. Pre and postcontrast hepatic MR recommended to further assess. 08/05/2022: This is a 6 minute walk test. The test was performed and interpreted in accordance with the 2014 ERS/ATS task force guidelines. Findings: The patient's resting room air oxygen saturation measured by pulse oximetry was 95%, the heart rate was 68 bpm, and the modified Stevie dyspnea score was 0. Patient ambulated for 366 meters and oxygen saturation remained 94 to 96%. At the end of the study the heart rate was 74 bpm and the modified Stevie dyspnea score was 0. The patient did not qualify for supplemental oxygen at rest or with ambulation. There are no prior studies for comparison. 08/05/2022: Echo Summary 1. Complete two-dimensional, color flow and Doppler transthoracic echocardiogram is performed. 2. Left ventricular systolic function is normal, estimated at 50-55%. 3. The left ventricular diastolic function is grade I diastolic dysfunction. 4. Right ventricular systolic function is normal. 5. There is mild mitral valve regurgitation. 6. There is mild tricuspid valve regurgitation. Right Ventricle Right ventricular chamber dimension is normal. Right ventricular systolic function is normal. Right Atria Right atrial chamber dimension is normal. Atrial Septum Intact interatrial septum visualized by color flow imaging. Review of Systems Constitutional: Constitutional: Reports no additional constitutional complaints Eyes: Eyes: Reports no additional eye complaints ENT: Reports system reviewed and no additional complaints, except as documented Cardiovascular: Cardiovascular: Reports no additional cardiovascular complaints Respiratory: Respiratory: Reports no additional respiratory complaints Gastrointestinal: Gastrointestinal: Reports no additional gastrointestinal complaints Musculoskeletal: Musculoskeletal: Reports no additional musculoskeletal complaints Neurologic: Reports system reviewed and no additional complaints, except as documented Psychiatric: Psychiatric: Reports no additional psychiatric complaints Endocrine: Endocrine: Reports no additional endocrine complaints Hematologic/Lymphatic: Hematologic/Lymphatic: Reports no additional hematologic/lymphatic complaints Allergic/Immunologic: Allergic/Immunologic: Reports no additional allergic/immunologic complaints [facility] Past Medical History Medical History (Updated 05/27/25 @ 21:29 by Char Sierra DO) Diastolic dysfunction Without diagnosis of CHF. Echo 08/2022: EF 50 55%, grade 1 diastolic dysfunction, normal right ventricular systolic function, mild mitral and tricuspid valve regurgitation Rupture long head biceps tendon Chronic steroid use 10 mg prednisone daily Essential hypertension Chronic hypoxic respiratory failure, on home oxygen therapy Cavernous hemangioma HIV (human immunodeficiency virus infection) COPD (chronic obstructive pulmonary disease) Surgical History Surgical History History of tonsillectomy History of hysterectomy Family History Family History Grandparent Diabetes mellitus Mother Diabetes mellitus Social History Social History (Updated 05/27/25 @ 23:55 by Char Sierra DO) Social History: She lives at home with her . She states that they been for few years. Her daughter recently moved in with the patient's 2 grand children and the daughters 2 dogs and 1 cat. She reports she used to smoke 1 pack of cigarettes per day from the time she was 7 years old in till 2020. She denies any illicit substance use. It sounds as if the patient likely drink at least a moderate amount of alcohol if not drinking on a daily basis for many years but quit drinking in 1994. 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 Code status: Full code Surrogate decision maker: Tha () Smoking packs per day: 1 Smoking cigarettes per day: 20.0 Years smoked: 55 Smoking pack-years: 55.00 Smoking status: Former smoker Second hand tobacco smoke exposure: Yes Alcohol intake: former Alcohol use details: She used to drink somewhat frequently when she was a blending machine feeder but quit in 1994. Substance use: never Substance use type: does not use Do You Feel Safe in your Home?: Yes Lack of Transportation: No Lack of Food: Never True Current Housing: I Have Housing Concerned About Future Housing: No Difficulty Paying Gas/Electric Bills: No Difficulty Paying for Meds: No Currently Unemployed: No Education: Bachelor's Degree Difficulty w/ Childcare or Family Care: No Spiritual care concerns: No Meds Home Medications and Allergies Home Medications ?Medication ?Instructions ?Recorded ?Confirmed ?Type budesonide-formoterol HFA 80 2 puff inhalation BID 03/09/22 05/28/25 History mcg-4.5 mcg/actuation aerosol inhaler (Symbicort) albuterol sulfate 90 mcg/actuation 1 inh inhalation QID PRN shortness 04/06/24 05/28/25 Rx aerosol inhaler of breath or wheezing #6.7 grams ipratropium 0.5 mg-albuterol 3 mg 3 ml inhalation Q6H PRN shortness 04/06/24 05/28/25 Rx (2.5 mg base)/3 mL nebulization of breath or wheezing #90 mL soln losartan 25 mg tablet 25 mg PO DAILY #30 tabs 04/06/24 05/28/25 Rx prednisone 10 mg tablet 10 mg PO DIRECTED #62 tabs 04/06/24 05/28/25 Rx tiotropium bromide 1.25 2 puff inhalation DAILY 07/12/24 05/28/25 History mcg/actuation mist for inhalation (Spiriva Respimat) darunavir 800 mg tablet 800 mg PO DAILY 04/12/25 05/28/25 History emtricitabine 200 mg-tenofovir 1 tablet PO DAILY 04/12/25 05/28/25 History disoproxil fumarate 300 mg tablet (Truvada) ritonavir 100 mg tablet 100 mg PO DAILY 04/12/25 05/28/25 History sodium chloride 0.65 % nasal spray 2 spray intranasal QID PRN nasal 04/12/25 05/28/25 History aerosol ([place] Saline) congestion guaifenesin 600 mg tablet, 1,200 mg (2 x 600 mg) PO Q12HR #30 04/16/25 05/28/25 Rx extended release 12 hr (Mucus tabs Relief ER) prednisone 10 mg tablet 10 mg PO DIRECTED #18 tabs 04/16/25 05/28/25 Rx Allergies Allergy/AdvReac Type Severity Reaction Status Date / Time meperidine Allergy Unknown anaphlaxis Verified 04/12/25 17:57 orange Allergy Unknown Hives Verified 04/12/25 17:57 Vital Signs Vital Signs - 24 hr 05/27/25 18:19 05/27/25 18:23 05/27/25 18:46 Temperature 37.1 C Pulse Rate 102 H 104 H Respiratory Rate 35 H 28 H Blood Pressure 159/98 H Pulse Oximetry 96 95 Oxygen Delivery Nasal Cannula Nasal Cannula Oxygen Flow Rate 5 5 Fraction of Inspired Oxygen 05/28/25 00:00 05/28/25 00:07 05/28/25 01:03 Temperature 36.4 C L Pulse Rate 87 93 95 Respiratory Rate 20 20 Blood Pressure 130/99 H Pulse Oximetry 94 Oxygen Delivery Oxygen Flow Rate Fraction of Inspired Oxygen 05/28/25 01:06 05/28/25 01:12 05/28/25 04:00 Temperature Pulse Rate 98 94 71 Respiratory Rate 20 20 Blood Pressure Pulse Oximetry 91 Oxygen Delivery Nasal Cannula Oxygen Flow Rate 2 Fraction of Inspired Oxygen 28 05/28/25 04:12 05/28/25 07:34 05/28/25 07:34 Temperature 36.7 C Pulse Rate 69 96 Respiratory Rate 20 20 Blood Pressure 128/78 Pulse Oximetry 91 92 Oxygen Delivery Nasal Cannula Oxygen Flow Rate 3 Fraction of Inspired Oxygen 05/28/25 07:43 05/28/25 08:58 Temperature 36.3 C L Pulse Rate 89 89 Respiratory Rate 20 Blood Pressure 155/82 H Pulse Oximetry 93 Oxygen Delivery Oxygen Flow Rate Fraction of Inspired Oxygen Exam Const: General: cooperative, healthy appearing and comfortable Orientation/consciousness: oriented to person, oriented to place and oriented to time HENMT: Head: normal to inspection Ears: hearing grossly normal bilaterally Eyes: General: appearance normal, both eyes and all related structures Neck: Neck: normal visual inspection Chest: Chest palpation & inspection: normal inspection of the chest Resp: Effort & Inspection: normal respiratory effort and able to speak in complete sentences Auscultation: crackles, no rales, no rhonchi, no wheezes and lung sounds not diminished Other: Bibasilar crackles. Cardio: Jugular venous distension: no JVD GI: Inspection: normal to inspection GI Palp: No abdominal tenderness Skin: General skin exam: normal color Neuro: General: oriented to person, oriented to place and oriented to time Extrem: General: normal to inspection Psych: Appearance: grossly normal Results Laboratory Findings 05/28/25 04:37 05/28/25 04:37 ABG, PT/INR, D-dimer: ABG ABG pH 7.388 (7.350-7.450) 05/27/25 18:53 ABG pCO2 60.4 mmHg (35.0-45.0) H* 05/27/25 18:53 ABG pO2 50.5 mmHg (80.0-100.0) L 05/27/25 18:53 ABG O2 Saturation 84.3 % (95.0-100.0) L* 05/27/25 18:53 PT/INR, D-dimer PT 12.2 Seconds (11.1-14.7) 05/27/25 18:26 INR 0.9 05/27/25 18:26 Abnormal lab findings: Abnormal Labs 05/27/25 05/27/25 05/27/25 18:26 18:53 21:16 WBC 12.9 H Hgb 11.8 L Hct MCH 25.8 L MCHC 30.5 L RDW 16.1 H Neut % (Auto) 80.7 H Lymph % (Auto) 10.0 L [place] # (Auto) 1.0 H Abs Immat Gran (auto) 0.05 H Absolute Neuts (auto) 10.4 H Neutrophils % (Manual) Lymphocytes % (Manual) Abs Neuts (Manual) Abs Lymphs (Manual) ABG pCO2 60.4 H* ABG pO2 50.5 L ABG HCO3 35.6 H ABG O2 Saturation 84.3 L* ABG O2 Content 14.6 L Oxyhemoglobin 82.2 L* Sodium 134 L Chloride 94 L Carbon Dioxide 37 H Anion Gap 3 L Creatinine 0.39 L Glucose Calcium 8.3 L AST 50 H C-Reactive Protein NT-Pro-B Natriuret Pep 514 H Ur Specific [place] > 1.045 H Urine Urobilinogen 2.0 H Urine RBC 3-5 H Nasal MRSA (PCR) 05/27/25 05/28/25 23:26 04:37 WBC 13.7 H Hgb 11.3 L Hct 36.8 L MCH MCHC 30.7 L RDW 16.4 H Neut % (Auto) Lymph % (Auto) [place] # (Auto) Abs Immat Gran (auto) Absolute Neuts (auto) Neutrophils % (Manual) 92 H Lymphocytes % (Manual) 1.0 L Abs Neuts (Manual) 13.42 H Abs Lymphs (Manual) 0.13 L ABG pCO2 ABG pO2 ABG HCO3 ABG O2 Saturation ABG O2 Content Oxyhemoglobin Sodium 134 L Chloride 96 L Carbon Dioxide 35 H Anion Gap 3 L Creatinine 0.39 L Glucose 166 H Calcium AST C-Reactive Protein 14.7 H NT-Pro-B Natriuret Pep Ur Specific [place] Urine Urobilinogen Urine RBC Nasal MRSA (PCR) Detected A* Diagnostic Findings Additional studies: ITS Impressions Chest X-Ray 05/27/25 19:52 Impression: 1: Bibasilar airspace disease, compatible with pneumonia. Chest CTA 05/27/25 20:02
[2025-05-28] MEDS: FLUTICASONE/SALMETEROL 45-21 MCG INHALER 1 PUFF 2 PUFF INHALATION (10:38)
[2025-05-28] MEDS: UMECLIDINIUM BROMIDE 62.5 MCG ELLIPTA 1 PUFF INHALATION (10:39)
[2025-05-28] MEDS: VANCOMYCIN 750 MG/NS 250 ML 750 MG/250 ML BAG 250 MG IVPB ×2 (10:42→22:04)
[2025-05-28] MEDS: SALINE 0.65% NAS SOLN 44 ML BTL 2 SPRAY NASAL (10:43)
[2025-05-28] MEDS: EMTRICITABINE-TENOFOVIR 100 MG-150 MG TABLET 2 TAB PO (10:45)
[2025-05-28] MEDS: LOSARTAN POTASSIUM 25 MG TABLET PO (10:45)
--- NOTE | 2025-05-28 11:10 | P.CONINF_ITS ---
Assessment and Plan Assessment and plan (1) HIV (human immunodeficiency virus infection): Qualifiers: HIV symptom status: unspecified Qualified Code(s): Z21 - Asymptomatic human immunodeficiency virus [HIV] infection status Code(s): B20 - Human immunodeficiency virus [HIV] disease Status: Acute (2) Community acquired pneumonia: Qualifiers: Laterality: unspecified laterality Qualified Code(s): J18.9 - Pneumonia, unspecified organism Code(s): J18.9 - Pneumonia, unspecified organism Status: Acute (3) Acute on chronic respiratory failure with hypoxia and hypercapnia: Code(s): J96.21 - Acute and chronic respiratory failure with hypoxia; J96.22 - Acute and chronic respiratory failure with hypercapnia Status: Acute (4) COPD with acute lower respiratory infection: Code(s): J44.0 - Chronic obstructive pulmonary disease with (acute) lower respiratory infection Status: Acute (5) Lung mass: Code(s): R91.8 - Other nonspecific abnormal finding of lung field Status: Acute (6) Chronic steroid use: Status: Acute Plan # HIV with CD4 count 1 year ago 176 ( 23%) and current viral load less than 300 while on Truvada and darunavir / ritonavir. # Acute on chronic hypoxic / hypercapnic respiratory failure in the setting of chronic COPD requiring home O2 of 2 L. -- consider exacerbation COPD. -- chest x-ray and CT evidence of acute pneumonia which may be recurrent after recent treatment for same. -- also with bilateral upper lobe masses and lymphadenopathy and may be suggestive of metastatic malignancy. Long history of tobacco use. -- depending on current CD4 count may be at risk for HIV-associated opportunistic infection. Plan: -- need current CD4 count. -- obtain an expectorated sputum for routine Gram stain and culture, fungal culture, cytopathology, and special stains for PJP. -- send urine for Legionella, pneumococcus, blastomycosis, and histo antigens. -- may need bronchoscopy as workup for possible malignancy and opportunistic infection. -- decision to consider PJP treatment will be based on additional information such as CD4 count. -- for now, continue cefepime and vancomycin and azithromycin. -- further recommendations to follow. Thank you for the consult. Patient was seen via video telehealth consultation with the assistance of staff. Chart, data, and patient independently reviewed. Patient was located at [facility] while I was located in my [place] office. Received verbal consent from patient. HPI Data of Consult Date/Time: 05/28/25 11:10 Requesting Physician: Char Sierra DO Primary Care Provider: Donya Mejia, PA Consult Narrative Reason for consult: recurrent pneumonia in the setting of HIV. Narrative: Roxanne Davey is a 65 year old female with COPD and 2 L home oxygen, chronic daily prednisone use at 10 mg, hypertension, and HIV for which she takes Truvada plus darunavir/ ritonavir. HIV RNA level 280 copies last month. CD4 count 1 year ago 176 or 23%. She states she was diagnosed HIV positive for 30 years ago. She also admits to a 55 year tobacco history starting at age 7 but ending several years ago. Recent hospitalization 04/12 through 04/16 for community-acquired pneumonia treated with ceftriaxone/azithromycin transitioned to Augmentin. Over the last 3 days she has developed increasing shortness of breath, cough, and recurrent right-sided pleuritic chest pain. She has a chronic productive cough. Presented to the ED 05/27/2025. Found to be afebrile with low-grade leukocytosis 12.9. Hypoxemic over baseline and now requiring 3 L O2. Chest x- ray consider compatible with bibasilar pneumonia. CT of chest with new bilateral upper lobe masses, largest measuring up to 2.4 cm, concerning for bronchogenic carcinoma. Abnormal hilar lymphadenopathy also suspicious for metastatic disease. In addition there was right middle lobe and lingular airspace consolidation consistent with pneumonia. No large central PE. No known antibiotic allergies. Currently placed on cefepime, vancomycin, and azithromycin. Continues with HAART. Review of Systems 2 Review of Systems: Notes baseline cough with some recent worsening. All systems reviewed & are unremarkable except as noted in HPI and below PMFSH Past Medical History Medical History (Updated 05/27/25 @ 21:29 by Char Sierra DO) Diastolic dysfunction Without diagnosis of CHF. Echo 08/2022: EF 50 55%, grade 1 diastolic dysfunction, normal right ventricular systolic function, mild mitral and tricuspid valve regurgitation Rupture long head biceps tendon Chronic steroid use 10 mg prednisone daily Essential hypertension Chronic hypoxic respiratory failure, on home oxygen therapy Cavernous hemangioma HIV (human immunodeficiency virus infection) COPD (chronic obstructive pulmonary disease) Surgical History Surgical History History of tonsillectomy History of hysterectomy Family History Family History Grandparent Diabetes mellitus Mother Diabetes mellitus Social History Social History (Updated 05/27/25 @ 23:55 by Char Sierra DO) Social History: She lives at home with her . She states that they been for few years. Her daughter recently moved in with the patient's 2 grand children and the daughters 2 dogs and 1 cat. She reports she used to smoke 1 pack of cigarettes per day from the time she was 7 years old in till 2020. She denies any illicit substance use. It sounds as if the patient likely drink at least a moderate amount of alcohol if not drinking on a daily basis for many years but quit drinking in 1994. 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 Code status: Full code Surrogate decision maker: Tha () Smoking packs per day: 1 Smoking cigarettes per day: 20.0 Years smoked: 55 Smoking pack-years: 55.00 Smoking status: Former smoker Second hand tobacco smoke exposure: Yes Alcohol intake: former Alcohol use details: She used to drink somewhat frequently when she was a backhaul driver but quit in 1994. Substance use: never Substance use type: does not use Do You Feel Safe in your Home?: Yes Lack of Transportation: No Lack of Food: Never True Current Housing: I Have Housing Concerned About Future Housing: No Difficulty Paying Gas/Electric Bills: No Difficulty Paying for Meds: No Currently Unemployed: No Education: Bachelor's Degree Difficulty w/ Childcare or Family Care: No Spiritual care concerns: No Meds Home Medications and Allergies Home Medications ?Medication ?Instructions ?Recorded ?Confirmed ?Type budesonide-formoterol HFA 80 2 puff inhalation BID 03/2505/28/25 History mcg-4.5 mcg/actuation aerosol inhaler (Symbicort) albuterol sulfate 90 mcg/actuation 1 inh inhalation QI D PRN shortness 04/06/24 05/28/25 Rx aerosol inhaler of breath or wheezing #6.7 g jonnie ipratropium 0.5 mg-albuterol 3 mg 3 ml inhalation Q6H PRN shortness 04/06/24 05/28/25 Rx (2.5 mg base)/3 mL nebulization of breath or wheezing #90 mL soln losartan 25 mg tablet 25 mg PO DAILY #30 tabs 01/2505/28/25 Rx prednisone 10 mg tablet 10 mg PO DIRECTED #62 tab s 04/06/24 05/28/25 Rx tiotropium bromide 1.25 2 puff inhalation DAILY 06/2705/28/25 History mcg/actuation mist for inhalation (Spiriva Respimat) darunavir 800 mg tablet 800 mg PO DAILY 04/12/25 History emtricitabine 200 mg-tenofovir 1 tablet PO DAILY 04/1205/28/25 History disoproxil fumarate 300 mg tablet (Truvada) ritonavir 100 mg tablet 100 mg PO DAILY 04/12/25 History sodium chloride 0.65 % nasal spray 2 spray intranasal QID PRN nasal 04/12/25 05/28/25 History aerosol ([place] Saline) congestion guaifenesin 600 mg tablet, 1,200 mg (2 x 600 mg) PO Q1 2HR #30 04/16/25 05/28/25 Rx extended release 12 hr (Mucus tabs Relief ER) prednisone 10 mg tablet 10 mg PO DIRECTED #18 tab s 04/16/25 05/28/25 Rx Allergies Allergy/AdvReac Type Severity Reaction Status Date / Time meperidine Allergy Unknown anaphlaxis Verified 04/12/25 17:57 orange Allergy Unknown Hives Verified 04/12/25 17:57 Vital Signs Vital Signs - 24 hr 05/27/25 18:19 05/27/25 18:23 05/27/25 18:46 Temperature 98.8 F Pulse Rate 102 H 104 H Respiratory Rate 35 H 28 H Blood Pressure 159/98 H Pulse Oximetry 96 95 Oxygen Delivery Nasal Cannula Nasal Cannula Oxygen Flow Rate 5 5 Fraction of Inspired Oxygen 05/28/25 00:00 05/28/25 00:07 05/28/25 01:03 Temperature 97.5 F L Pulse Rate 87 93 95 Respiratory Rate 20 20 Blood Pressure 130/99 H Pulse Oximetry 94 Oxygen Delivery Oxygen Flow Rate Fraction of Inspired Oxygen 05/28/25 01:06 05/28/25 01:12 05/28/25 04:00 Temperature Pulse Rate 98 94 71 Respiratory Rate 20 20 Blood Pressure Pulse Oximetry 91 Oxygen Delivery Nasal Cannula Oxygen Flow Rate 2 Fraction of Inspired Oxygen 28 05/28/25 04:12 05/28/25 07:34 05/28/25 07:34 Temperature 98.0 F Pulse Rate 69 96 Respiratory Rate 20 20 Blood Pressure 128/78 Pulse Oximetry 91 92 Oxygen Delivery Nasal Cannula Oxygen Flow Rate 3 Fraction of Inspired Oxygen 05/28/25 07:43 05/28/25 08:00 05/28/25 08:58 Temperature 97.4 F L Pulse Rate 89 78 89 Respiratory Rate 20 Blood Pressure 155/82 H Pulse Oximetry 93 Oxygen Delivery Oxygen Flow Rate Fraction of Inspired Oxygen Exam 2 Narrative: Awake, alert, and interactive. No distress. Normocephalic. No conjunctivitis. No respiratory distress. Abdomen not significantly distended. No rash. Results Labs 05/28/25 04:37 05/28/25 04:37 Labs: Short CBC 05/27/25 05/28/25 Range/Units 18:26 04:37 WBC 12.9 H 13.7 H (4.5-10.0) K/mm3 Hgb 11.8 L 11.3 L (12.0-15.0) g/dL Hct 38.7 36.8 L (37.0-47.0) % Plt Count 314 306 (150-375) k/mm3 [facility] 05/27/25 05/28/25 18:26 04:37 Sodium 134 L 134 L Potassium 3.6 4.2 Chloride 94 L 96 L Carbon Dioxide 37 H 35 H BUN 10 9 Creatinine 0.39 L 0.39 L Glucose 103 166 H Calcium 8.3 L 8.7 Cardiac Enzymes 05/27/25 Range/Units 18:26 Troponin I < 0.012 (0.000-0.034) ng/mL Liver Function 05/27/25 Range/Units 18:26 Total Bilirubin 0.2 (0.2-1.3) mg/dL AST 50 H (14-36) U/L ALT 32 (6-35) U/L Alkaline Phosphatase 76 (38-126) U/L Albumin 3.6 (3.5-5.1) g/dL Urine 05/27/25 Range/Units 21:16 Urine Color Yellow (Yellow) Urine Appearance Clear (Clear) Urine pH 7.5 (5.0-9.0) Ur Specific [place] > 1.045 H (1.001-1.035) Urine Protein Trace (Negative) mg/dL Urine Glucose (UA) Negative (Negative) mg/dL
[2025-05-28] MEDS: guaiFENesin 12 HR 600 MG TABCR 1200 MG PO ×2 (14:29→20:09)
--- NOTE | 2025-05-28 15:22 | PHAR ---
Drug Name:?Darunavir Color:?Beige Shape:?Oval Imprint:??1217 Form:?Oral Tablet Drug Name:?Ritonavir Color:?White to off-white Shape:?Capsule-shape Imprint:??H?;?R9 Form:?Oral Tablet
[2025-05-28] MEDS: DARUNAVIR 800 MG 800 EACH PO (15:55)
[2025-05-28] MEDS: RITONAVIR 100 MG 100 EACH PO (15:56)
[2025-05-28] MEDS: ALBUTEROL SULFATE (*SP) AEROSOL 1 PUFF INHALATION (16:23)
--- NOTE | 2025-05-28 16:32 | P.CONPL_ITS ---
History of Present Illness History of Present Illness Consult date: 05/28/25 Chief complaint: COPD, pneumonia Narrative: NEW: Roxanne andres a 65-year-old woman admitted 05/27 with right sided chest pain, PMFSH Past Medical History Medical History (Updated 05/27/25 @ 21:29 by Char Sierra DO) Diastolic dysfunction Without diagnosis of CHF. Echo 08/2022: EF 50 55%, grade 1 diastolic dysfunction, normal right ventricular systolic function, mild mitral and tricuspid valve regurgitation Rupture long head biceps tendon Chronic steroid use 10 mg prednisone daily Essential hypertension Chronic hypoxic respiratory failure, on home oxygen therapy Cavernous hemangioma HIV (human immunodeficiency virus infection) COPD (chronic obstructive pulmonary disease) Surgical History Surgical History History of tonsillectomy History of hysterectomy Family History Family History Grandparent Diabetes mellitus Mother Diabetes mellitus Social History Social History (Updated 05/27/25 @ 23:55 by Char Sierra DO) Social History: She lives at home with her . She states that they been for few years. Her daughter recently moved in with the patient's 2 grand children and the daughters 2 dogs and 1 cat. She reports she used to smoke 1 pack of cigarettes per day from the time she was 7 years old in till 2020. She denies any illicit substance use. It sounds as if the patient likely drink at least a moderate amount of alcohol if not drinking on a daily basis for many years but quit drinking in 1994. 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 Substance use: never Substance use type: does not use Do You Feel Safe in your Home?: Yes Lack of Transportation: No Lack of Food: Never True Current Housing: I Have Housing Concerned About Future Housing: No Difficulty Paying Gas/Electric Bills: No Difficulty Paying for Meds: No Currently Unemployed: No Education: Bachelor's Degree Difficulty w/ Childcare or Family Care: No Spiritual care concerns: No Meds Home Medications and Allergies Home Medications ?Medication ?Instructions ?Recorded ?Confirmed ?Type budesonide-formoterol HFA 80 2 puff inhalation BID 03/2505/28/25 History mcg-4.5 mcg/actuation aerosol inhaler (Symbicort) albuterol sulfate 90 mcg/actuation 1 inh inhalation QI D PRN shortness 04/06/24 05/28/25 Rx aerosol inhaler of breath or wheezing #6.7 g jonnie ipratropium 0.5 mg-albuterol 3 mg 3 ml inhalation Q6H PRN shortness 04/06/24 05/28/25 Rx (2.5 mg base)/3 mL nebulization of breath or wheezing #90 mL soln losartan 25 mg tablet 25 mg PO DAILY #30 tabs 01/2505/28/25 Rx prednisone 10 mg tablet 10 mg PO DIRECTED #62 tab s 04/06/24 05/28/25 Rx tiotropium bromide 1.25 2 puff inhalation DAILY 06/2705/28/25 History mcg/actuation mist for inhalation (Spiriva Respimat) darunavir 800 mg tablet 800 mg PO DAILY 04/12/25 History emtricitabine 200 mg-tenofovir 1 tablet PO DAILY 04/1205/28/25 History disoproxil fumarate 300 mg tablet (Truvada) ritonavir 100 mg tablet 100 mg PO DAILY 04/12/25 History sodium chloride 0.65 % nasal spray 2 spray intranasal QID PRN nasal 04/12/25 05/28/25 History aerosol ([place] Saline) congestion guaifenesin 600 mg tablet, 1,200 mg (2 x 600 mg) PO Q1 2HR #30 04/16/25 05/28/25 Rx extended release 12 hr (Mucus tabs Relief ER) prednisone 10 mg tablet 10 mg PO DIRECTED #18 tab s 04/16/25 05/28/25 Rx Allergies Allergy/AdvReac Type Severity Reaction Status Date / Time meperidine Allergy Unknown anaphlaxis Verified 04/12/25 17:57 orange Allergy Unknown Hives Verified 04/12/25 17:57 Vital Signs Vital Signs - 24 hr 05/27/25 18:19 05/27/25 18:23 05/27/25 18:46 Temperature 37.1 C Pulse Rate 102 H 104 H Respiratory Rate 35 H 28 H Blood Pressure 159/98 H Pulse Oximetry 96 95 Oxygen Delivery Nasal Cannula Nasal Cannula Oxygen Flow Rate 5 5 Fraction of Inspired Oxygen 05/28/25 00:00 05/28/25 00:07 05/28/25 01:03 Temperature 36.4 C L Pulse Rate 87 93 95 Respiratory Rate 20 20 Blood Pressure 130/99 H Pulse Oximetry 94 Oxygen Delivery Oxygen Flow Rate Fraction of Inspired Oxygen 05/28/25 01:06 05/28/25 01:12 05/28/25 04:00 Temperature Pulse Rate 98 94 71 Respiratory Rate 20 20 Blood Pressure Pulse Oximetry 91 Oxygen Delivery Nasal Cannula Oxygen Flow Rate 2 Fraction of Inspired Oxygen 28 05/28/25 04:12 05/28/25 07:34 05/28/25 07:34 Temperature 36.7 C Pulse Rate 69 96 Respiratory Rate 20 20 Blood Pressure 128/78 Pulse Oximetry 91 92 Oxygen Delivery Nasal Cannula Oxygen Flow Rate 3 Fraction of Inspired Oxygen 05/28/25 07:43 05/28/25 08:00 05/28/25 08:58 Temperature 36.3 C L Pulse Rate 89 78 89 Respiratory Rate 20 Blood Pressure 155/82 H Pulse Oximetry 93 Oxygen Delivery Oxygen Flow Rate Fraction of Inspired Oxygen 05/28/25 12:07 05/28/25 14:10 05/28/25 14:12 Temperature 36.3 C L 36.1 C L Pulse Rate 90 90 Respiratory Rate 20 20 Blood Pressure 160/79 H Pulse Oximetry 95 Oxygen Delivery Oxygen Flow Rate Fraction of Inspired Oxygen 05/28/25 14:21 Temperature Pulse Rate 95 Respiratory Rate 20 Blood Pressure Pulse Oximetry Oxygen Delivery Oxygen Flow Rate Fraction of Inspired Oxygen Results Laboratory Findings 05/28/25 04:37 05/28/25 04:37 ABG, PT/INR, D-dimer: ABG ABG pH 7.388 (7.350-7.450) 05/27/25 18:53 ABG pCO2 60.4 mmHg (35.0-45.0) H* 05/27/25 18:53 ABG pO2 50.5 mmHg (80.0-100.0) L 05/27/25 18:53 ABG O2 Saturation 84.3 % (95.0-100.0) L* 05/27/25 18:53 PT/INR, D-dimer PT 12.2 Seconds (11.1-14.7) 05/27/25 18:26 INR 0.9 05/27/25 18:26 Abnormal lab findings: Abnormal Labs 05/27/25 05/27/25 05/27/25 18:26 18:53 21:16 WBC 12.9 H Hgb 11.8 L Hct MCH 25.8 L MCHC 30.5 L RDW 16.1 H Neut % (Auto) 80.7 H Lymph % (Auto) 10.0 L [place] # (Auto) 1.0 H Abs Immat Gran (auto) 0.05 H Absolute Neuts (auto) 10.4 H Neutrophils % (Manual) Lymphocytes % (Manual) Abs Neuts (Manual) Abs Lymphs (Manual) ABG pCO2 60.4 H* ABG pO2 50.5 L ABG HCO3 35.6 H ABG O2 Saturation 84.3 L* ABG O2 Content 14.6 L Oxyhemoglobin 82.2 L* Sodium 134 L Chloride 94 L Carbon Dioxide 37 H Anion Gap 3 L Creatinine 0.39 L Glucose Calcium 8.3 L AST 50 H C-Reactive Protein NT-Pro-B Natriuret Pep 514 H Ur Specific [place] > 1.045 H Urine Urobilinogen 2.0 H Urine RBC 3-5 H Nasal MRSA (PCR) 05/27/25 05/28/25 23:26 04:37 WBC 13.7 H Hgb 11.3 L Hct 36.8 L MCH MCHC 30.7 L RDW 16.4 H Neut % (Auto) Lymph % (Auto) [place] # (Auto) Abs Immat Gran (auto) Absolute Neuts (auto) Neutrophils % (Manual) 92 H Lymphocytes % (Manual) 1.0 L Abs Neuts (Manual) 13.42 H Abs Lymphs (Manual) 0.13 L ABG pCO2 ABG pO2 ABG HCO3 ABG O2 Saturation ABG O2 Content Oxyhemoglobin Sodium 134 L Chloride 96 L Carbon Dioxide 35 H Anion Gap 3 L Creatinine 0.39 L Glucose 166 H Calcium AST C-Reactive Protein 14.7 H NT-Pro-B Natriuret Pep Ur Specific [place] Urine Urobilinogen Urine RBC Nasal MRSA (PCR) Detected A*
[2025-05-28] MEDS: AZITHROMYCIN IV 500 MG in SODIUM CHLORIDE 0.9% IV 250 ML IVPB (20:09)
[2025-05-29] VITALS (20 sets, daily range): BP systolic 130–155; BP diastolic 70–88; PULSE 80–107; RESP 16–28; TEMP 36.5–37; O2SAT 95–98
[2025-05-29] MEDS: IPRATROPIUM 0.5 MG/ALBUTEROL SULFATE 2.5 MG AMPUL.NEB 3 ML INHALATION ×4 (01:29→21:01)
[2025-05-29] MEDS: CEFEPIME 2 GM in SODIUM CHLORIDE 0.9% IV 50 ML 100 ML IVPB ×3 (01:29→17:03)
[2025-05-29 05:03] LABS: Hematocrit 35.1 % (37.0-47.0); Hemoglobin 10.6 g/dL (12.0-15.0); Mean Corpuscular HGB Conc 30.2 g/dl (32-36); Mean Corpuscular Hemoglobin 26.3 pg (26-34); Mean Corpuscular Volume 87.1 fl (80-100); Platelet Count Result 332 k/mm3 (150-375); Red Blood Count 4.03 M/mm3 (4.2-5.4); White Blood Count 15.5 K/mm3 (4.5-10.0)
[2025-05-29 05:24] LABS: Alanine Aminotransferase 29 U/L (6-35); Albumin Level 3.2 g/dL (3.5-5.1); Alkaline Phosphatase 66 U/L (38-126); Anion Gap 3 mmol/L (4-12); Aspartate Amino Transferase 30 U/L (14-36); Bilirubin,Total 0.1 mg/dL (0.2-1.3); Blood Urea Nitrogen 15 mg/dL (7-17); Calcium 8.6 mg/dL (8.4-10.2); Carbon Dioxide 38 mmol/L (22-30); Chloride 96 mmol/L (98-107); Estimated CRCL calculation 83 ml/min; Estimated Glomerular Filt Rate > 60; Glucose 159 mg/dL (65-110); Potassium 3.7 mmol/L (3.4-5.0); Sodium 137 mmol/L (137-145); Total Protein 6.5 g/dL (6.3-8.2)
[2025-05-29 05:35] LABS: Band Neutrophils Percent 6 % (0-6); Lymphocytes Absolute Manual 0.77 K/mm3 (1.1-4.5); Lymphocytes Percent Manual 5.0 % (18-44); Monocytes Absolute Manual 0.15 K/mm3 (0.1-0.90); Monocytes Percent Manual 1 % (3-9); Neutrophils Absolute Manual 14.57 K/mm3 (1.3-6.7); Neutrophils Percent Manual 88 % (46-73); Total Cells Counted 100
[2025-05-29 05:36] LABS: Hypochromasia 1+; Ovalocytes 1+; Schistocytes None Seen
--- NOTE | 2025-05-29 07:05 | P.PNIM_ITS ---
Progress Note: A&P Assessment and Plan (1) Sepsis: Qualifiers: Acute respiratory failure type: unspecified Sepsis acute organ dysfunction status: with acute organ dysfunction Sepsis type: sepsis due to unspecified organism Severe sepsis acute organ dysfunction type: acute respiratory failure Severe sepsis shock status: without septic shock Qualified Code(s): A41.9 - Sepsis, unspecified organism; R65.20 - Severe sepsis without septic shock; J96.00 - Acute respiratory failure, unspecified whether with hypoxia or hypercapnia Code(s): A41.9 - Sepsis, unspecified organism Status: Acute Assessment and Plan: - sepsis present on admission evidenced by tachycardia, tachypnea, increased hypoxia, leukocytosis - LA WNL, BP stable - received 1L NS in ED - source: pneumonia, continue management as below - WBC trending up likely due to steroids. Clinically improving. - follow-up blood cultures (2) Community acquired pneumonia: Qualifiers: Laterality: unspecified laterality Qualified Code(s): J18.9 - Pneumonia, unspecified organism Code(s): J18.9 - Pneumonia, unspecified organism Status: Acute Assessment and Plan: - recent admission 04/2025 for pneumonia, treated with Rocephin and azithromycin, discharged on Levaquin - CTA chest with RML and lingular airspace consolidation consistent with pneumonia - MRSA DNA positive - blood cultures, sputum culture, legionella, strep, blastomycosis and histo antigens and mycoplasma antibodies pending - infectious disease consulted in light of history of HIV and recurrent pneumoni a, recommended to continue cefepime, vanc and azithromycin. Await CD4 count (miscellaneous test in EMR) to determine if PJP treatment needed. Needs bronchoscopy - inpatient vs. outpatient depending clinical course. (3) COPD with acute lower respiratory infection: Code(s): J44.0 - Chronic obstructive pulmonary disease with (acute) lower respiratory infection Status: Acute Assessment and Plan: - no wheezing this AM. Has some increased sputum production and dyspnea - pulmonology following, transitioned to IV solumedrol to prednisone 40 mg with plans to resume home prednisone 10mg after acute treatment. Started inhaled budesonide. - continue scheduked Dubri, Mucinex. (4) Acute on chronic respiratory failure with hypoxia and hypercapnia: Code(s): J96.21 - Acute and chronic respiratory failure with hypoxia; J96.22 - Acute and chronic respiratory failure with hypercapnia Status: Acute Assessment and Plan: - on 2-3L NC O2 baseline - ABG with pH 7.38, pCO2 60.4, pO2 50.5. pCO2 higher than baseline, but work of breathing improved so BiPAP was deferred. - required up to 5L in ED, now back to baseline 3L - monitor O2 sat (5) Lung mass: Code(s): R91.8 - Other nonspecific abnormal finding of lung field Status: Acute Assessment and Plan: - CTA chest with new bilateral upper lobe masses, largest 2.4 cm concerning for bronchogenic carcinoma - pulmonology consulted, will need outpatient bronchoscopy with EUS at tertiary center likely as outpatient (6) HIV (human immunodeficiency virus infection): Qualifiers: HIV symptom status: unspecified Qualified Code(s): Z21 - Asymptomatic human immunodeficiency virus [HIV] infection status Code(s): B20 - Human immunodeficiency virus [HIV] disease Status: Acute Assessment and Plan: - managed on darunavir, ritonavir, and Truvada - continue - CD4 count 176 04/2024 - patient was off medication at this time. Reports she restarted ART 2 months ago. - viral load and CD4 count pending - ID following (7) Chronic steroid use: Status: Acute Assessment and Plan: - on prednisone 10mg daily Subjective Date/time seen: 05/29/25 07:05 Interval history: 65-year-old female with a past medical history of COPD with chronic hypoxic respiratory failure on home O2 of 2 L, chronic prednisone therapy of 10 mg daily, HIV and essential hypertension who presented to the ER from home via EMS due to increased shortness of breath. Patient seen and examined at bedside. Feeling a little more SOB this AM. Reported productive cough. Review of Systems Review of Systems: All systems reviewed & are unremarkable except as noted in HPI and below Exam Narrative: General: NAD, chronically ill-appearing Eyes: EOMI ENT: neck supple Cardiovascular: Regular rate and rhythm Respiratory: + rhonchi of RLL, respirations even and unlabored on 3L NC Gastrointestinal: Soft, non tender Genitourinary: no suprapubic tenderness Musculoskeletal: No edema Skin: warm, dry Neuro: Alert. Psych: Mood appropriate Objective Data Vital Signs Vital Signs: Vital Signs - 24 hr 05/28/25 07:34 05/28/25 07:34 05/28/25 07:43 Temperature Pulse Rate 96 89 Respiratory Rate 20 20 Blood Pressure Pulse Oximetry 92 Oxygen Delivery Nasal Cannula Oxygen Flow Rate 3 05/28/25 08:00 05/28/25 08:00 05/28/25 08:58 Temperature 97.4 F L Pulse Rate 78 89 Respiratory Rate Blood Pressure 155/82 H Pulse Oximetry 95 93 Oxygen Delivery Nasal Cannula Oxygen Flow Rate 3 05/28/25 12:00 05/28/25 12:07 05/28/25 14:10 Temperature 97.4 F L 96.9 F L Pulse Rate 101 H 90 Respiratory Rate 20 Blood Pressure 160/79 H Pulse Oximetry 95 Oxygen Delivery Oxygen Flow Rate 05/28/25 14:12 05/28/25 14:21 05/28/25 16:00 Temperature Pulse Rate 90 95 94 Respiratory Rate 20 20 Blood Pressure Pulse Oximetry Oxygen Delivery Oxygen Flow Rate 05/28/25 19:48 05/28/25 19:49 05/28/25 19:53 Temperature Pulse Rate 95 95 Respiratory Rate 20 20 Blood Pressure Pulse Oximetry 92 Oxygen Delivery Nasal Cannula Oxygen Flow Rate 3 05/28/25 19:55 05/28/25 20:00 05/29/25 00:00 Temperature 97.7 F Pulse Rate 95 97 80 Respiratory Rate 24 H Blood Pressure 165/90 H Pulse Oximetry 96 Oxygen Delivery Oxygen Flow Rate 05/29/25 01:30 05/29/25 01:37 05/29/25 03:25 Temperature 97.7 F Pulse Rate 95 95 84 Respiratory Rate 20 20 20 Blood Pressure 130/70 Pulse Oximetry 97 Oxygen Delivery Oxygen Flow Rate 05/29/25 04:00 Temperature Pulse Rate 85 Respiratory Rate Blood Pressure Pulse Oximetry Oxygen Delivery Oxygen Flow Rate Intake/Output Intake/Output: Intake & Output 05/26/25 05/27/25 05/28/25 05/29/25 23:59 23:59 23:59 23:59 Intake Total 50 2260 290 Output Total 250 Balance 50 2009 Meds/Results Medications: Active Medications Generic Name Dose Route Start Last Admin Trade Name Freq PRN Reason Stop Dose Admin Albuterol 1 puff 05/28/25 09:10 05/28/25 16:23 Albuterol Sulfate (*Sp) Aerosol 1 Puff INHALATION 1 puff QID PRN Administration Shortness Of Breath Or Wheezing Albuterol/Ipratropium 3 ml 05/28/25 02:00 05/29/25 01:29 Ipratropium 0.5 Mg/Albuterol Sulfate 2.5 Mg Ampul.Neb 3 Ml INHALATION 3 ml Q6HRT SOHAM Administration Emtricitabine/Tenofovir 2 tab 05/28/25 09:00 05/28/25 10:45 Emtricitabine-Tenofovir 100 Mg-150 Mg Tablet PO 2 tab DAILY SOHAM Administration Guaifenesin 1,200 mg 05/28/25 13:30 05/28/25 20:09 Guaifenesin 12 Hr 600 Mg Tabcr PO 1,200 mg Q12HR SOHAM Administration Azithromycin 500 mg/ Sodium 250 mls @ 250 mls/hr 05/28/25 21:00 05/28/25 21: 09 Chloride IVPB 05/31/25 21:59 Infused Q24H SOHAM Infusion Vancomycin HCl 750 mg in 250 mls @ 250 mls/hr 05/28/25 11:00 05/28/25 23:04 Vancomycin 750 Mg/Ns 250 Ml IVPB Infused Q12H SOHAM Infusion Cefepime HCl 2 gm/ Sodium 50 mls @ 100 mls/hr 05/28/25 10:00 05/29/25 01:59 Chloride IVPB Infused Q8H SOHAM Infusion Losartan Potassium 25 mg 05/28/25 09:00 05/28/25 10:45 Losartan Potassium 25 Mg Tablet PO 25 mg DAILY SOHAM Administration Darunavir 800 Mg 800 mg 05/28/25 15:50 05/28/25 15:55 Tablet Home Med PO 06/27/25 15:49 800 mg DAILY SOHAM Administration Ritonavir 100 Mg 100 mg 05/28/25 15:50 05/28/25 15:56 Tablet Homemed PO 06/27/25 15:49 100 mg DAILY SOHAM Administration Nystatin 5 ml 05/28/25 09:00 05/28/25 20:09 Nystatin 100,000 Units/Ml Susp 5 Ml Oral.Susp PO 5 ml QID SOHAM Administration Prednisone 40 mg 05/29/25 08:00 Prednisone 20 Mg Tablet PO DAILY@0800 SOHAM Sodium Chloride 2 spray 05/28/25 09:10 05/28/25 10:43 Saline 0.65% James Soln 44 Ml Btl NASAL 2 spray QID PRN Administration Nasal Congestion Radiology Results: ITS Impressions Chest X-Ray 05/27/25 19:52 Impression: 1: Bibasilar airspace disease, compatible with pneumonia. Chest CTA 05/27/25 20:02 IMPRESSION: 1. New bilateral upper lobe masses, largest measuring up to 2.4 cm, concerning for bronchogenic carcinoma. Abnormal hilar lymphadenopathy, suspicious for metastatic disease. 2: Right middle lobe and lingular airspace consolidation, consistent with pneumonia. 3: No large central pulmonary embolism. Evaluation of peripheral pulmonary arteries somewhat limited due to motion artifact and contrast bolus timing. Labs Labs: Laboratory Results - last 24 hr 05/27/25 05/28/25 05/29/25 21:40 04:37 04:44 WBC 15.5 H RBC 4.03 L Hgb 10.6 L Hct 35.1 L MCV 87.1 MCH 26.3 MCHC 30.2 L RDW 16.5 H Plt Count 332 MPV 9.5 Immature Gran % (Auto) Not Reportable Neut % (Auto) Not Reportable Lymph % (Auto) Not Reportable [place] % (Auto) Not Reportable Eos % (Auto) Not Reportable Baso % (Auto) Not Reportable Lymph # (Auto) Not Reportable [place] # (Auto) Not Reportable Eos # (Auto) Not Reportable Baso # (Auto) Not Reportable Abs Immat Gran (auto) Not Reportable Absolute Neuts (auto) Not Reportable Absolute Nucleated RBC Not Reportable Total Counted 100 Neutrophils % (Manual) 88 H Band Neutrophils % 6 Lymphocytes % (Manual) 5.0 L Monocytes % (Manual) 1 L Nucleated RBC % Not Reportable Abs Neuts (Manual) 14.57 H Abs Lymphs (Manual) 0.77 L Abs Monocytes (Manual) 0.15 Platelet Estimate Adequate Hypochromasia 1+ Ovalocytes 1+ Schistocytes None seen Sodium 137 Potassium 3.7 Chloride 96 L Carbon Dioxide 38 H Anion Gap 3 L BUN 15 D Creatinine 0.39 L Estim Creat Clear Calc 83 Estimated GFR > 60 Glucose 159 H Calcium 8.6 Total Bilirubin 0.1 L AST 30 ALT 29 Alkaline Phosphatase 66 C-Reactive Protein 14.7 H Total Protein 6.5 Albumin 3.2 L Absolute Lymphocytes Cancelled % CD4 Cells Cancelled Absolute CD4 Count Cancelled Quality VTE Prophylaxis VTE prophylaxis: mechanical ordered
--- NOTE | 2025-05-29 08:06 | P.CDI_ITS ---
CDI Query Clarification Request BMI: 17.2 Nutritional Diagnostic Statement: Please refer to the comprehensive nutrition assessment for further information. If you agree with diagnosis of Moderate protein calorie malnutrition related to chronic COPD as evidenced by moderate fat loss and severe muscle wasting. Please specify severity if known: * Mild * Moderate * Severe * Other/Unknown <Karine Kim RN - Last Filed: 05/29/25 08:09> Clarified Diagnosis Clarified Diagnosis: severe protein-calorie malnutrition <KIMBERLI Omer - Last Filed: 05/29/25 16:19>
--- NOTE | 2025-05-29 08:27 | PM.PNPUL ---
Progress Note: A&P Assessment and Plan (1) Community acquired pneumonia: Qualifiers: Laterality: unspecified laterality Qualified Code(s): J18.9 - Pneumonia, unspecified organism Code(s): J18.9 - Pneumonia, unspecified organism Status: Acute Assessment and Plan: Patient with a history of COPD and severe apical predominant panlobular emphysema, HIV positive, treated for pneumonia ceftriaxone and azithromycin in the hospital from 04/12 to 04/16 and discharged on Augmentin. She did improved back to her baseline. Currently she has 7 days of shortness of breath, change in her phlegm, right-sided pleuritic chest pain, worsening cough and shortness of breath with a leukocytosis at 12.[address] angiogram of the chest that shows infiltrates and consolidation in the right middle lobe and lingula. She has MRSA swab positive, COVID, influenza, RSV RT PCR assay negative. 05/28/25 Plan: Patient was changed to vancomycin, cefepime and azithromycin was continued. She is feeling better today and says that her pleuritic pain is now resolved, her phlegm is gone from green to yellow, she is afebrile but remains with a leukocytosis 13.7. I have sent for urine pneumococcal, urine Legionella, extended respiratory pathogen panel and serum mycoplasma IgM. Infectious Disease has been consulted. I will attempt to wean her steroids quickly back to her baseline of 10 mg of prednisone a day. Will continue these antibiotics currently. Id consult pending for management of antibiotics as well as antiretrovirals. 05/29/25: patient tells me she is improved. Overall she states she is breathing 60% back to her normal. Her cough is increased since yesterday but it is dry and her phlegm is back to her baseline. She has no hemoptysis, fever, chills. Currently she is on 3 L nasal cannula with saturations 94% I decreased her to 2 L and her saturations were 93%. She is afebrile. White blood cell count 15.5, creatinine 0.39. Cumulative she is +2.3 L since admission. Plan: patient improving on vancomycin, cefepime and azithromycin all started on 05/28/2025. respiratory pathogen panel, urine pneumococcal, urine Legionella, urine blasto pending. Oxygenation improving with goal saturation 90-94%. Will follow with you. (2) COPD (chronic obstructive pulmonary disease): Code(s): J44.9 - Chronic obstructive pulmonary disease, unspecified Status: Acute Assessment and Plan: Regarding her COPD the patient was diagnosed about 5 years ago. She has been on oxygen 2 years. She has been on home prednisone 10 mg a day for 2-3 years and has never been attempted to be weaned off. PFTs 06/21/2024 with an FEV1 of 0.82 L, 35% predicted, ratio 39%, hyperinflation, severely decreased DLCO at remain moderately decreased when adjusted for alveolar volume and in comparison to 08/05/2022 there is worsening in her FVC, FEV1 and diffusing capacity and increase in her total lung capacity, functional residual capacity and residual volume. She tells me she uses 2 L at rest, 3 L with activity and 2-1/2 L when she sleeps. 2 L NC ABG 04/04/2024 7.43/41/69. On a good day she can walk 1.5 room lengths. Patient was initially wheezing but currently has no wheezes. ABG on 3 L in the emergency room 7.39/60/51. 05/28/25: Plan: Patient receive Solu-Medrol 60 mg IV q.6 hours x3 doses, last at 5:40 AM this morning. Given her bilateral pneumonia I will attempt to quickly wean her steroids back to her baseline and will place her on 40 mg p.o. q.day starting on 05/29/2025. I will continue ipratropium and albuterol nebulizers q.6 hours. This will provide adequate beta agonist and muscarinic antagonist and I will discontinue her home Advair and incruse ellipta. Will start guaifenesin 1200 mg p.o. b.i.d.. I will treat the patient for pneumonia and or COPD exacerbation and eventually repeat a blood gas to determine if she remains hypercarbic. Goal saturation 90-94%, adjust oxygen accordingly. 05/29/25: Patient with wheezes left upper lobe but otherwise states her breathing is improving. Plan: The patient is receiving prednisone 40 mg p.o. today. I will decrease her to prednisone 10 mg p.o. q.day starting 05/30/2025. I will start budesonide 500 mcg nebulizers b.i.d. today. Continue ipratropium and albuterol nebulizers q.6 hours. Continue guaifenesin 1200 p.o. b.i.d.. Will add Tessalon Perles 200 mg p.o. t.i.d. for her cough. (3) Lung mass: Code(s): R91.8 - Other nonspecific abnormal finding of lung field Status: Acute Assessment and Plan: Patient with 55 pack year tobacco use, quit in 2021. CT angiogram of the chest was reviewed with Radiology and was negative for PE, and compared to 02/01/2024 there was unchanged upper lobe calcified granulomas and severe panlobular emphysema, there were new right middle lobe and lingula dense infiltrates with consolidation and a new right upper lobe 2.4 cm nodule with right hilar lymph node measuring 4.1 x 2.1 cm that was not associated with infiltrates. There is a new mass in the lingula measuring 2 x 1.1 cm and this was associated with adjacent infiltrates. 05/28/2025: Plan: Patient does desire further workup of this right lung mass. patient cannot undergo a CT-guided biopsy at [facility] as she is on supplemental oxygen and deemed too high risk to perform the procedure at [place]. Furthermore the mass is centrally located. Patient has a right hilar mass and ideally she would undergo bronchoscopy with EBUS and sampling of the right hilar mass which should be performed after she has been treated for her acute pneumonia. Bronchoscopy with EBUS cannot be done at [facility]. Patient is willing to be referred to a higher level of care facility and at this point will treat the patient for her acute pneumonia and when she is recovered will refer to [facility] in [place], Dr. Owen, as an outpatient. 05/29: I have pushed the CT scan from 05/27/2025 and 02/01/2024 to [facility] Plan: I discussed with Dr. Owen and he prefers to complete treatment for pneumonia and then his staff will call him to set up an outpatient bronchoscopy with EBUS. Patient's best phone number is [phone] and I forwarded this phone number to him. Subjective Date/time seen: 05/29/25 08:27 Interval history: 02/20/2025: This is a new pulmonary consult for COPD and lung mass 65-year-old with a history of GOLD grade 3 group E COPD on home oxygen 2 L and home prednisone 10 a day, HIV on antiretrovirals, HTN. Regarding her COPD the patient was diagnosed about 5 years ago. She has been on oxygen 2 years. She has been on home prednisone 10 mg a day for 2-3 years and has never been attempted to be weaned off. PFTs 06/21/2024 with an FEV1 of 0.82 L, 35% predicted, ratio 39%, hyperinflation, severely decreased DLCO at remain moderately decreased when adjusted for alveolar volume and in comparison to 08/05/2022 there is worsening in her FVC, FEV1 and diffusing capacity and increase in her total lung capacity, functional residual capacity and residual volume. She tells me she uses 2 L at rest, 3 L with activity and 2-1/2 L when she sleeps. 2 L NC ABG 04/04/2024 7.43/41/69. On a good day she can walk 1.5 room lengths. patient smoked tobacco from age 7 to age 62 at 1 pack per day. 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 She lives in [place] but never worked in the [employer], denies sand blasting, welding, asbestos were, professional painting, mining, quarry work or construction work. Patient is HIV and previously saw Dr. Franco and was on antiretroviral medications and she tells me her levels were undetectable. Dr. Franco than retired and she could not find a physician but continued to take medicines. Currently she is seeing a PCP who prescribes her medicines. She does not know the status of her viral load. Patient states that she does have continued problems with thrush. Recently admitted to [facility] 04/12/2025 through 04/16/2025. treated for COPD exacerbation and pneumonia. Discharged on Augmentin and to continue her Symbicort, Spiriva and prednisone 10 Ed. continue her retrovirals. Patient tells me she her got back to her normal from a respiratory viewpoint. Approximately 7 days ago the patient developed shortness of breath initially with no change in her phlegm. over the last 3 days she developed right-sided pleuritic chest pain. Over the last 2 days she developed cough with worsening phlegm that was now dark green. She had increased wheezing and shortness of breath. Her dyspnea on exertion worsened and she presented to the emergency department. in the emergency in her blood pressure is 159/98, heart rate 102, respirations 35, she is placed on 5 L nasal cannula saturations 96%. She had end expiratory wheezes. Procalcitonin 0.0. BNP 514. MRSA nasal swab positive. COVID influenza and RSV RT PCR assay negative. CT angiogram of the chest was reviewed with Radiology and was negative for PE, and compared to 02/01/2024 there was unchanged upper lobe calcified granulomas and severe panlobular emphysema, there were new right middle lobe and lingula dense infiltrates with consolidation and a new right upper lobe 2.4 cm nodule with right hilar lymph node measuring 4.1 x 2.1 cm that was not associated with infiltrates. There is a new mass in the lingula measuring 2 x 1.1 cm and this was associated with adjacent infiltrates. She was treated for COPD exacerbation and pneumonia with Solu-Medrol, bronchodilators, ceftriaxone and azithromycin. ceftriaxone and azithromycin were changed to cefepime and vanco on admission to the hospital. 05/28/2025: The patient tells me she is feeling better, she has 50% back to her normal, her phlegm is gone from dark green to yellow and her right-sided pleuritic pain is resolved. She is afebrile. Currently she is on 3 L nasal cannula saturations 93%. Her white blood cell count is 13.7, her creatinine is 0.39, her CRP is 14.7. 05/29/25: patient tells me she is improved. Overall she states she is breathing 60% back to her normal. Her cough is increased since yesterday but it is dry and her phlegm is back to her baseline. She has no hemoptysis, fever, chills. Currently she is on 3 L nasal cannula with saturations 94% I decreased her to 2 L and her saturations were 93%. She is afebrile. White blood cell count 15.5, creatinine 0.39. Cumulative she is +2.3 L since admission. DATA: 05/27/25: EXAMINATION: CTA chest PE protocol INDICATION: Right-sided pleuritic chest pain. COMPARISON: CT dated 02/01/2024. FINDINGS: Study is technically adequate. No evidence for pulmonary embolism. There is bilateral hilar lymphadenopathy. There is subcarinal lymphadenopathy. Right hilar lymph node measuring 4.1 x 2.1 cm. No significant pleural or pericardial effusion. There is a densely calcified granuloma in the right upper lobe. There is scarring in the left upper lobe with calcified granuloma. There is a new mass in the right upper lobe, image 69, measuring 2.4 x 1.8 cm, concerning for bronchogenic carcinoma. There is a new mass in the lingula with irregular configuration measuring 2 x 1.1 cm. There is right middle lobe and lingular airspace consolidation. No pneumothorax. There is emphysema. There is 2.9 cm hypodense mass of the right hepatic lobe with marginal enhancement. Mild thoracic spondylosis with accentuated kyphosis. There is a second peripherally enhancing mass in the left hepatic lobe measuring 1.8 cm. IMPRESSION: 1. New bilateral upper lobe masses, largest measuring up to 2.4 cm, concerning for bronchogenic carcinoma. Abnormal hilar lymphadenopathy, suspicious for metastatic disease. 2: Right middle lobe and lingular airspace consolidation, consistent with pneumonia. 3: No large central pulmonary embolism. Evaluation of peripheral pulmonary arteries somewhat limited due to motion artifact and contrast bolus timing. 06/21/2024: This is a pulmonary function test with spirometry, plethysmography and diffusing capacity. The test was performed and results interpreted in accordance with the 2019 and 2005 ATS/ERS Task Force guidelines respectively using the Global Lung Function Initiative-2012 reference equations. Patient demonstrated good effort and cooperation. Reproducibility criteria were met. The quality of the spirometry maneuver was Grade A. Findings: Spirometry: There is decreased maximal expiratory airflow at all lung volumes with concave expiratory flow tracing. The FVC is 2.09 L, 70% predicted. The FEV1 is 0.82 L, 35% predicted. The FEV1: FVC ratio is 39%. Plethysmography: The total lung capacity is 6.74 L, 137% predicted. The functional residual capacity is 4.62 L, 167% predicted. The residual volume is 4.59 L, 232% predicted. The residual volume: Total lung capacity ratio 68%. Diffusing capacity: The diffusing capacity unadjusted for hemoglobin and carboxy hemoglobin is 6.1, 29% predicted. The diffusing capacity adjusted for alveolar volume is 2.06, 46% predicted. In comparison to previous pulmonary function testing on 08/05/2022, the pre bronchodilator FVC has decreased from 2.80 L to 2.09 L. The pre bronchodilator FEV1 has decreased from 1.19 L to 0.82 L. The total lung capacity is unchanged from 6.30 L to 6.74 L. The functional residual capacity is increased from 3.81 L to 4.62 L. the residual volume has increased from 3.45 L to 4.59 L. the residual volume: Total lung capacity ratio has increased from 55% to 68%. The diffusing capacity unadjusted for hemoglobin and carboxyhemoglobin is decreased from 9.1 to 6.1. The diffusing capacity adjusted for alveolar volume has decreased from 2.55 to 2.06 Impression: There is a severe obstructive abnormality. The increase in residual volume to total lung volume ratio is consistent with hyperinflation from an obstructive abnormality. The diffusing capacity unadjusted for hemoglobin and carboxyhemoglobin is severely decreased and remains moderately decreased when adjusted for alveolar volume. In compared to previous pulmonary function testing on 08/05/2022, there has been a greater than anticipated time dependent decrease in the FVC, FEV1, and diffusing capacity. There has been a greater than anticipated time dependent increase in the total lung capacity, functional residual capacity, residual volume, and the residual volume: Total lung capacity ratio. clinical correlation is recommended. 03/02/24: EXAMINATION: MR abdomen wo/w con INDICATION: Liver mass. TECHNIQUE: Magnetic resonance imaging (MRI) of the abdomen was performed without and with 9 mL MultiHance intravenous contrast. COMPARISON: Chest CT 02/01/2024 FINDINGS: There are 5 hemangiomas in the liver measuring up to 3.2 cm characterized by interrupted peripheral puddling of contrast. There is an 8 mm arterially hyperenhancing mass in left hepatic lobe without washout, likely a hemangioma or focal nodular hyperplasia. There are a few cysts in the liver measuring up to 7 mm. The gallbladder, spleen, pancreas, adrenal glands, and kidneys are normal. There are no dilated loops of bowel. IMPRESSION: 1. Benign masses in the liver. 02/01/2024: CT Scan of the Chest without Contrast: Clinical Indication: Lung cancer screening, nicotine dependence Technique: Contiguous sections were acquired throughout the chest without intravenous contrast. Dose reduction technique was used on this scan by utilizing automated exposure control and iterative reconstruction technique. The dose-length product (DLP) was 66.12 mGy-cm. Findings: There is no evidence of any significant mediastinal, hilar or axillary lymphadenopathy. Coronary artery calcifications are present.. There is no evidence of pleural or pericardial effusion. There is severe emphysema with biapical scarring and biapical calcified granulomas. There is a 4 mm right upper lobe pulmonary nodule (axial image 52). Images through the upper abdomen reveal 2.9 cm hypodense, noncystic hepatic mass in the right hepatic lobe there is an additional 1.6 cm hypodense mass in the anterior left hepatic lobe.. Chronic compression deformity of L1 noted. Impression: Lung RADS 2-S: Benign appearance. 12 month follow-up screening CT advised. 2 hypodense hepatic masses, measuring 2.9 cm and 1.6 cm in size respectively. These are indeterminate. Pre and postcontrast hepatic MR recommended to further assess. 08/05/2022: This is a 6 minute walk test. The test was performed and interpreted in accordance with the 2014 ERS/ATS task force guidelines. Findings: The patient's resting room air oxygen saturation measured by pulse oximetry was 95%, the heart rate was 68 bpm, and the modified Stevie dyspnea score was 0. Patient ambulated for 366 meters and oxygen saturation remained 94 to 96%. At the end of the study the heart rate was 74 bpm and the modified Stevie dyspnea score was 0. The patient did not qualify for supplemental oxygen at rest or with ambulation. There are no prior studies for comparison. 08/05/2022: Echo Summary 1. Complete two-dimensional, color flow and Doppler transthoracic echocardiogram is performed. 2. Left ventricular systolic function is normal, estimated at 50-55%. 3. The left ventricular diastolic function is grade I diastolic dysfunction. 4. Right ventricular systolic function is normal. 5. There is mild mitral valve regurgitation. 6. There is mild tricuspid valve regurgitation. Right Ventricle Right ventricular chamber dimension is normal. Right ventricular systolic function is normal. Right Atria Right atrial chamber dimension is normal. Atrial Septum Intact interatrial septum visualized by color flow imaging. Review of Systems Constitutional: Constitutional: Reports no additional constitutional complaints Eyes: Eyes: Reports no additional eye complaints ENT: Reports system reviewed and no additional complaints, except as documented Cardiovascular: Cardiovascular: Reports no additional cardiovascular complaints Respiratory: Respiratory: Reports no additional respiratory complaints Gastrointestinal: Gastrointestinal: Reports no additional gastrointestinal complaints Musculoskeletal: Musculoskeletal: Reports no additional musculoskeletal complaints Neurologic: Reports system reviewed and no additional complaints, except as documented Psychiatric: Psychiatric: Reports no additional psychiatric complaints Endocrine: Endocrine: Reports no additional endocrine complaints Hematologic/Lymphatic: Hematologic/Lymphatic: Reports no additional hematologic/lymphatic complaints Allergic/Immunologic: Allergic/Immunologic: Reports no additional allergic/immunologic complaints Exam Const: General: cooperative, healthy appearing and comfortable Orientation/consciousness: oriented to person, oriented to place and oriented to time HENMT: Head: normal to inspection Ears: hearing grossly normal bilaterally Eyes: General: appearance normal, both eyes and all related structures Neck: Neck: normal visual inspection Chest: Chest palpation & inspection: normal inspection of the chest Resp: Effort & Inspection: normal respiratory effort and able to speak in complete sentences Auscultation: crackles, no rales, no rhonchi, wheezes and lung sounds not diminished Other: Improved Bibasilar crackles. expiratory wheezes left upper lobe Cardio: Jugular venous distension: no JVD GI: Inspection: normal to inspection Skin: General skin exam: normal color Neuro: General: oriented to person, oriented to place and oriented to time Extrem: General: normal to inspection Psych: Appearance: grossly normal Objective Data Vital Signs Vital Signs: Vital Signs - 24 hr 05/28/25 08:58 05/28/25 12:00 05/28/25 12:07 Temperature 36.3 C L 36.3 C L Pulse Rate 89 101 H Respiratory Rate Blood Pressure 155/82 H Pulse Oximetry 93 Oxygen Delivery Oxygen Flow Rate 05/28/25 14:10 05/28/25 14:12 05/28/25 14:21 Temperature 36.1 C L Pulse Rate 90 90 95 Respiratory Rate 20 20 20 Blood Pressure 160/79 H Pulse Oximetry 95 Oxygen Delivery Oxygen Flow Rate 05/28/25 16:00 05/28/25 19:48 05/28/25 19:49 Temperature Pulse Rate 94 95 Respiratory Rate 20 Blood Pressure Pulse Oximetry 92 Oxygen Delivery Nasal Cannula Oxygen Flow Rate 3 05/28/25 19:53 05/28/25 19:55 05/28/25 20:00 Temperature 36.5 C Pulse Rate 95 95 97 Respiratory Rate 20 24 H Blood Pressure 165/90 H Pulse Oximetry 96 Oxygen Delivery Oxygen Flow Rate 05/29/25 00:00 05/29/25 01:30 05/29/25 01:37 Temperature Pulse Rate 80 95 95 Respiratory Rate 20 20 Blood Pressure Pulse Oximetry Oxygen Delivery Oxygen Flow Rate 05/29/25 03:25 05/29/25 04:00 Temperature 36.5 C Pulse Rate 84 85 Respiratory Rate 20 Blood Pressure 130/70 Pulse Oximetry 97 Oxygen Delivery Oxygen Flow Rate Intake/Output Intake/Output: Intake & Output 05/26/25 05/27/25 05/28/25 05/29/25 23:59 23:59 23:59 23:59 Intake Total 50 2260 290 Output Total 250 Balance 50 2009 290 Meds/Results Medications: Active Medications Generic Name Dose Route Start Last Admin Trade Name Freq PRN Reason Stop Dose Admin Albuterol 1 puff 05/28/25 09:10 05/28/25 16:23 Albuterol Sulfate (*Sp) Aerosol 1 Puff INHALATION 1 puff QID PRN Administration Shortness Of Breath Or Wheezing Albuterol/Ipratropium 3 ml 05/28/25 02:00 05/29/25 01:29 Ipratropium 0.5 Mg/Albuterol Sulfate 2.5 Mg Ampul.Neb 3 Ml INHALATION 3 ml Q6HRT SOHAM Administration Emtricitabine/Tenofovir 2 tab 05/28/25 09:00 05/28/25 10:45 Emtricitabine-Tenofovir 100 Mg-150 Mg Tablet PO 2 tab DAILY SOHAM Administration Guaifenesin 1,200 mg 05/28/25 13:30 05/28/25 20:09 Guaifenesin 12 Hr 600 Mg Tabcr PO 1,200 mg Q12HR SOHAM Administration Azithromycin 500 mg/ Sodium 250 mls @ 250 mls/hr 05/28/25 21:00 05/28/25 21:09 Chloride IVPB 05/31/25 21:59 Infused Q24H SOHAM Infusion Vancomycin HCl 750 mg in 250 mls @ 250 mls/hr 05/28/25 11:00 05/28/25 23:04 Vancomycin 750 Mg/Ns 250 Ml IVPB Infused Q12H SOHAM Infusion Cefepime HCl 2 gm/ Sodium 50 mls @ 100 mls/hr 05/28/25 10:00 05/29/25 01:59 Chloride IVPB Infused Q8H SOHAM Infusion Losartan Potassium 25 mg 05/28/25 09:00 05/28/25 10:45 Losartan Potassium 25 Mg Tablet PO 25 mg DAILY SOHAM Administration Darunavir 800 Mg 800 mg 05/28/25 15:50 05/28/25 15:55 Tablet Home Med PO 06/27/25 15:49 800 mg DAILY SOHAM Administration Ritonavir 100 Mg 100 mg 05/28/25 15:50 05/28/25 15:56 Tablet Homemed PO 06/27/25 15:49 100 mg DAILY SOHAM Administration Nystatin 5 ml 05/28/25 09:00 05/28/25 20:09 Nystatin 100,000 Units/Ml Susp 5 Ml Oral.Susp PO 5 ml QID SOHAM Administration Prednisone 40 mg 05/29/25 08:00 Prednisone 20 Mg Tablet PO DAILY@0800 SOHAM Sodium Chloride 2 spray 05/28/25 09:10 05/28/25 10:43 Saline 0.65% James Soln 44 Ml Btl NASAL 2 spray QID PRN Administration Nasal Congestion Radiology Results: ITS Impressions Chest X-Ray 05/27/25 19:52 Impression: 1: Bibasilar airspace disease, compatible with pneumonia. Chest CTA 05/27/25 20:02 IMPRESSION: 1. New bilateral upper lobe masses, largest measuring up to 2.4 cm, concerning for bronchogenic carcinoma. Abnormal hilar lymphadenopathy, suspicious for metastatic disease. 2: Right middle lobe and lingular airspace consolidation, consistent with pneumonia. 3: No large central pulmonary embolism. Evaluation of peripheral pulmonary arteries somewhat limited due to motion artifact and contrast bolus timing. Labs Labs: Laboratory Results - last 24 hr 05/27/25 05/29/25 21:40 04:44 WBC 15.5 H RBC 4.03 L Hgb 10.6 L Hct 35.1 L MCV 87.1 MCH 26.3 MCHC 30.2 L RDW 16.5 H Plt Count 332 MPV 9.5 Immature Gran % (Auto) Not Reportable Neut % (Auto) Not Reportable Lymph % (Auto) Not Reportable [place] % (Auto) Not Reportable Eos % (Auto) Not Reportable Baso % (Auto) Not Reportable Lymph # (Auto) Not Reportable [place] # (Auto) Not Reportable Eos # (Auto) Not Reportable Baso # (Auto) Not Reportable Abs Immat Gran (auto) Not Reportable Absolute Neuts (auto) Not Reportable Absolute Nucleated RBC Not Reportable Total Counted 100 Neutrophils % (Manual) 88 H Band Neutrophils % 6 Lymphocytes % (Manual) 5.0 L Monocytes % (Manual) 1 L Nucleated RBC % Not Reportable Abs Neuts (Manual) 14.57 H Abs Lymphs (Manual) 0.77 L Abs Monocytes (Manual) 0.15 Platelet Estimate Adequate Hypochromasia 1+ Ovalocytes 1+ Schistocytes None seen Sodium 137 Potassium 3.7 Chloride 96 L Carbon Dioxide 38 H Anion Gap 3 L BUN 15 D Creatinine 0.39 L Estim Creat Clear Calc 83 Estimated GFR > 60 Glucose 159 H Calcium 8.6 Total Bilirubin 0.1 L AST 30 ALT 29 Alkaline Phosphatase 66 Total Protein 6.5 Albumin 3.2 L Absolute Lymphocytes Cancelled % CD4 Cells Cancelled Absolute CD4 Count Cancelled
[2025-05-29] MEDS: EMTRICITABINE-TENOFOVIR 100 MG-150 MG TABLET 2 TAB PO (09:19)
[2025-05-29] MEDS: guaiFENesin 12 HR 600 MG TABCR 1200 MG PO ×2 (09:19→20:13)
[2025-05-29] MEDS: LOSARTAN POTASSIUM 25 MG TABLET PO (09:19)
[2025-05-29] MEDS: NYSTATIN 100,000 UNITS/ML SUSP 5 ML ORAL.SUSP PO ×4 (09:20→20:13)
[2025-05-29] MEDS: RITONAVIR 100 MG 100 EACH PO (09:20)
[2025-05-29] MEDS: DARUNAVIR 800 MG 800 EACH PO (09:20)
--- NOTE | 2025-05-29 09:53 | P.PNINF_ITS ---
Progress Note: A&P Assessment and Plan (1) HIV (human immunodeficiency virus infection): Qualifiers: HIV symptom status: unspecified Qualified Code(s): Z21 - Asymptomatic human immunodeficiency virus [HIV] infection status Code(s): B20 - Human immunodeficiency virus [HIV] disease Status: Acute (2) Community acquired pneumonia: Qualifiers: Laterality: unspecified laterality Qualified Code(s): J18.9 - Pneumonia, unspecified organism Code(s): J18.9 - Pneumonia, unspecified organism Status: Acute (3) Acute on chronic respiratory failure with hypoxia and hypercapnia: Code(s): J96.21 - Acute and chronic respiratory failure with hypoxia; J96.22 - Acute and chronic respiratory failure with hypercapnia Status: Acute (4) COPD with acute lower respiratory infection: Code(s): J44.0 - Chronic obstructive pulmonary disease with (acute) lower respiratory infection Status: Acute (5) Lung mass: Code(s): R91.8 - Other nonspecific abnormal finding of lung field Status: Acute (6) Chronic steroid use: Status: Acute Plan # HIV with CD4 count 1 year ago 176 ( 23%) and current viral load less than 300 while on Truvada and darunavir / ritonavir. # Acute on chronic hypoxic / hypercapnic respiratory failure in the setting of chronic COPD requiring home O2 of 2 L. -- consider exacerbation COPD. -- chest x-ray and CT evidence of acute pneumonia which may be recurrent after recent treatment for same. -- also with bilateral upper lobe masses and lymphadenopathy and may be suggestive of metastatic malignancy. Long history of tobacco use. -- depending on current CD4 count may be at risk for HIV-associated opportunis tic infection. # Leukocytosis. -- increased but receiving prednisone. Plan: -- Await current CD4 count. -- await expectorated sputum for routine Gram stain and culture, fungal culture, cytopathology, and special stains for PJP. -- await urine for Legionella, pneumococcus, blastomycosis, and histo antigens. -- may need bronchoscopy as workup for possible malignancy and opportunistic infection. Pulmonary input noted and appreciated. -- decision to consider PJP treatment will be based on additional information such as CD4 count. -- for now, continue cefepime and vancomycin and azithromycin. Would complete 1500 mg of azithromycin -- last dose later today. -- if she clinically improves will direct therapy toward completion of bacterial, non-opportunistic, pulmonary infection. However, she will eventually need outpatient bronchoscopy scheduled to further evaluate upper lobe masses which may involve malignancy. -- further recommendations to follow. Patient was seen via video telehealth consultation with the assistance of staff. Chart, data, and patient independently reviewed. Patient was located at [facility] while I was located in my [place] office. Received verbal consent from patient. Subjective Date/time seen: 05/29/25 09:53 Interval history: 05/29/2025: Afebrile. Vital signs stable. Some increase in dry cough. Appreciate Pulmonary input. They point out, however, specific bronchoscopy to assess upper lobe masses could not be performed at this institution. Review of Systems Review of Systems: Notes baseline cough with some recent worsening. Cough is dry. All systems reviewed & are unremarkable except as noted in HPI and below Exam Narrative: Awake, alert, and interactive. No distress. Normocephalic. No conjunctivitis. No respiratory distress. Occasional cough. Abdomen not significantly distended. No rash. Objective Data Vital Signs Vital Signs: Vital Signs - 24 hr 05/28/25 12:00 05/28/25 12:07 05/28/25 14:10 Temperature 97.4 F L 96.9 F L Pulse Rate 101 H 90 Respiratory Rate 20 Blood Pressure 160/79 H Pulse Oximetry 95 Oxygen Delivery Oxygen Flow Rate 05/28/25 14:12 05/28/25 14:21 05/28/25 16:00 Temperature Pulse Rate 90 95 94 Respiratory Rate 20 20 Blood Pressure Pulse Oximetry Oxygen Delivery Oxygen Flow Rate 05/28/25 19:48 05/28/25 19:49 05/28/25 19:53 Temperature Pulse Rate 95 95 Respiratory Rate 20 20 Blood Pressure Pulse Oximetry 92 Oxygen Delivery Nasal Cannula Oxygen Flow Rate 3 05/28/25 19:55 05/28/25 20:00 05/29/25 00:00 Temperature 97.7 F Pulse Rate 95 97 80 Respiratory Rate 24 H Blood Pressure 165/90 H Pulse Oximetry 96 Oxygen Delivery Oxygen Flow Rate 05/29/25 01:30 05/29/25 01:37 05/29/25 03:25 Temperature 97.7 F Pulse Rate 95 95 84 Respiratory Rate 20 20 20 Blood Pressure 130/70 Pulse Oximetry 97 Oxygen Delivery Oxygen Flow Rate 05/29/25 04:00 05/29/25 08:35 05/29/25 08:35 Temperature Pulse Rate 85 96 96 Respiratory Rate 18 18 Blood Pressure Pulse Oximetry 98 Oxygen Delivery Nasal Cannula Oxygen Flow Rate 3 05/29/25 08:43 05/29/25 09:17 Temperature Pulse Rate 100 95 Respiratory Rate 21 H Blood Pressure 155/88 H Pulse Oximetry 98 Oxygen Delivery Oxygen Flow Rate Intake/Output Intake/Output: Intake & Output 05/26/25 05/27/25 05/28/25 05/29/25 23:59 23:59 23:59 23:59 Intake Total 50 2260 290 Output Total 250 Balance 50 2009 290 Meds/Results Medications: Active Medications Generic Name Dose Route Start Last Admin Trade Name Freq PRN Reason Stop Dose Admin Albuterol 1 puff 05/28/25 09:10 05/28/25 16:23 Albuterol Sulfate (*Sp) Aerosol 1 Puff INHALATION 1 puff QID PRN Administration Shortness Of Breath Or Wheezing Albuterol/Ipratropium 3 ml 05/28/25 02:00 05/29/25 08:35 Ipratropium 0.5 Mg/Albuterol Sulfate 2.5 Mg Ampul.Neb 3 Ml INHALATION 3 ml Q6HRT SOHAM Administration Budesonide 0.5 mg 05/29/25 10:00 Budesonide Respule Neb 0.5 Mg/2 Ml Amp INHALATION Q12HRT SOHAM Emtricitabine/Tenofovir 2 tab 05/28/25 09:00 05/29/25 09:19 Emtricitabine-Tenofovir 100 Mg-150 Mg Tablet PO 2 tab DAILY SOHAM Administration Guaifenesin 1,200 mg 05/28/25 13:30 05/29/25 09:19 Guaifenesin 12 Hr 600 Mg Tabcr PO 1,200 mg Q12HR SOHAM Administration Azithromycin 500 mg/ Sodium 250 mls @ 250 mls/hr 05/28/25 21:00 05/28/25 21:09 Chloride IVPB 05/31/25 21:59 Infused Q24H SOHAM Infusion Vancomycin HCl 750 mg in 250 mls @ 250 mls/hr 05/28/25 11:00 05/28/25 23:04 Vancomycin 750 Mg/Ns 250 Ml IVPB Infused Q12H SOHAM Infusion Cefepime HCl 2 gm/ Sodium 50 mls @ 100 mls/hr 05/28/25 10:00 05/29/25 09:20 Chloride IVPB 100 mls/hr Q8H SOHAM Administration Losartan Potassium 25 mg 05/28/25 09:00 05/29/25 09:19 Losartan Potassium 25 Mg Tablet PO 25 mg DAILY SOHAM Administration Darunavir 800 Mg 800 mg 05/28/25 15:50 05/29/25 09:20 Tablet Home Med PO 06/27/25 15:49 800 mg DAILY SOHAM Administration Ritonavir 100 Mg 100 mg 05/28/25 15:50 05/29/25 09:20 Tablet Homemed PO 06/27/25 15:49 100 mg DAILY SOHAM Administration Nystatin 5 ml 05/28/25 09:00 05/29/25 09:20 Nystatin 100,000 Units/Ml Susp 5 Ml Oral.Susp PO 5 ml QID SOHAM Administration Prednisone 40 mg 05/29/25 08:00 05/29/25 09:19 Prednisone 20 Mg Tablet PO 40 mg DAILY@0800 SOHAM Administration Sodium Chloride 2 spray 05/28/25 09:10 05/28/25 10:43 Saline 0.65% James Soln 44 Ml Btl NASAL 2 spray QID PRN Administration Nasal Congestion Radiology Results: ITS Impressions Chest X-Ray 05/27/25 19:52 Impression: 1: Bibasilar airspace disease, compatible with pneumonia. Chest CTA 05/27/25 20:02 IMPRESSION: 1. New bilateral upper lobe masses, largest measuring up to 2.4 cm, concerning for bronchogenic carcinoma. Abnormal hilar lymphadenopathy, suspicious for metastatic disease. 2: Right middle lobe and lingular airspace consolidation, consistent with pneumonia. 3: No large central pulmonary embolism. Evaluation of peripheral pulmonary arteries somewhat limited due to motion artifact and contrast bolus timing. Labs Labs: Laboratory Results - last 24 hr 05/29/25 04:44 WBC 15.5 H RBC 4.03 L Hgb 10.6 L Hct 35.1 L MCV 87.1 MCH 26.3 MCHC 30.2 L RDW 16.5 H Plt Count 332 MPV 9.5 Immature Gran % (Auto) Not Reportable Neut % (Auto) Not Reportable Lymph % (Auto) Not Reportable [place] % (Auto) Not Reportable Eos % (Auto) Not Reportable Baso % (Auto) Not Reportable Lymph # (Auto) Not Reportable [place] # (Auto) Not Reportable Eos # (Auto) Not Reportable Baso # (Auto) Not Reportable Abs Immat Gran (auto) Not Reportable Absolute Neuts (auto) Not Reportable Absolute Nucleated RBC Not Reportable Total Counted 100 Neutrophils % (Manual) 88 H Band Neutrophils % 6 Lymphocytes % (Manual) 5.0 L Monocytes % (Manual) 1 L Nucleated RBC % Not Reportable Abs Neuts (Manual) 14.57 H Abs Lymphs (Manual) 0.77 L Abs Monocytes (Manual) 0.15 Platelet Estimate Adequate Hypochromasia 1+ Ovalocytes 1+ Schistocytes None seen Sodium 137 Potassium 3.7 Chloride 96 L Carbon Dioxide 38 H Anion Gap 3 L BUN 15 D Creatinine 0.39 L Estim Creat Clear Calc 83 Estimated GFR > 60 Glucose 159 H Calcium 8.6 Total Bilirubin 0.1 L AST 30 ALT 29 Alkaline Phosphatase 66 Total Protein 6.5 Albumin 3.2 L
[2025-05-29] MEDS: BENZONATATE 100 MG CAPSULE 200 MG PO ×2 (12:09→17:02)
[2025-05-29] MEDS: VANCOMYCIN 1,500 MG/NS 500 ML 1,500 MG/500 ML BAG 250 MG IVPB ×2 (12:09→22:54)
--- NOTE | 2025-05-29 13:17 | PCPTNOTE ---
Pt declines to participate with evaluation today due to breathing difficulties. Asks therapist to return tomorrow because she is having a hard day. Will recheck patient for evaluatio maverick able.
[2025-05-29] MEDS: AZITHROMYCIN IV 500 MG in SODIUM CHLORIDE 0.9% IV 250 ML IVPB (20:14)
[2025-05-29] MEDS: BUDESONIDE RESPULE NEB 0.5 MG/2 ML AMP INHALATION (21:01)
[2025-05-30] VITALS (14 sets, daily range): BP systolic 146–161; BP diastolic 84–96; PULSE 78–97; RESP 16–20; TEMP 36.4–36.8; O2SAT 90–94
[2025-05-30] MEDS: CEFEPIME 2 GM in SODIUM CHLORIDE 0.9% IV 50 ML 100 ML IVPB ×3 (01:33→17:14)
--- NOTE | 2025-05-30 04:20 | PCRCNOTE ---
0200 neb tx omitted due to oximetry study
[2025-05-30 05:24] LABS: Hematocrit 33.1 % (37.0-47.0); Hemoglobin 10.0 g/dL (12.0-15.0); Immature Granulocyte Percent A 1.3 % (0-0.5); Lymphocytes Absolute Auto 1.50 K/mm3 (0.9-3.2); Mean Corpuscular HGB Conc 30.2 g/dl (32-36); Mean Corpuscular Hemoglobin 26.2 pg (26-34); Mean Corpuscular Volume 86.6 fl (80-100); Nucleated Red Blood Cells Absolute Auto 0.000 K/mm3 (0.0-0.012); Nucleated Red Blood Cells Perc 0.0 % (0.0-0.2); Platelet Count Result 327 k/mm3 (150-375); Red Blood Count 3.82 M/mm3 (4.2-5.4); White Blood Count 11.9 K/mm3 (4.5-10.0)
[2025-05-30 05:47] LABS: Alanine Aminotransferase 23 U/L (6-35); Albumin Level 2.8 g/dL (3.5-5.1); Alkaline Phosphatase 62 U/L (38-126); Anion Gap 1 mmol/L (4-12); Aspartate Amino Transferase 28 U/L (14-36); Bilirubin,Total < 0.1 mg/dL (0.2-1.3); Blood Urea Nitrogen 12 mg/dL (7-17); Calcium 8.0 mg/dL (8.4-10.2); Carbon Dioxide 39 mmol/L (22-30); Chloride 95 mmol/L (98-107); Estimated CRCL calculation 79 ml/min; Estimated Glomerular Filt Rate > 60; Glucose 94 mg/dL (65-110); Potassium 3.4 mmol/L (3.4-5.0); Sodium 135 mmol/L (137-145); Total Protein 5.8 g/dL (6.3-8.2)
--- NOTE | 2025-05-30 07:07 | P.PNIM_ITS ---
Progress Note: A&P Assessment and Plan (1) Sepsis: Qualifiers: Acute respiratory failure type: unspecified Sepsis acute organ dysfunction status: with acute organ dysfunction Sepsis type: sepsis due to unspecified organism Severe sepsis acute organ dysfunction type: acute respiratory failure Severe sepsis shock status: without septic shock Qualified Code(s): A41.9 - Sepsis, unspecified organism; R65.20 - Severe sepsis without septic shock; J96.00 - Acute respiratory failure, unspecified whether with hypoxia or hypercapnia Code(s): A41.9 - Sepsis, unspecified organism Status: Acute Assessment and Plan: * sepsis present on admission evidenced by tachycardia, tachypnea, increased hypoxia, leukocytosis * LA WNL, BP stable * received 1L NS in ED * source: pneumonia, continue management as below * WBC trending up likely due to steroids. Clinically improving. * follow-up blood cultures - NGTD * WBC down trending, 15.5 -> 11.9 * Remains afebrile (2) Community acquired pneumonia: Qualifiers: Laterality: unspecified laterality Qualified Code(s): J18.9 - Pneumonia, unspecified organism Code(s): J18.9 - Pneumonia, unspecified organism Status: Acute Assessment and Plan: * recent admission 04/2025 for pneumonia, treated with Rocephin and azithromycin, discharged on Levaquin * CTA chest with RML and lingular airspace consolidation consistent with pneumonia * MRSA DNA positive * blood cultures, sputum culture, legionella, strep, blastomycosis and histo antigens and mycoplasma antibodies pending * infectious disease consulted in light of history of HIV and recurrent pneumonia, recommended to continue cefepime, vanc and azithromycin. Await CD4 count (miscellaneous test in EMR) to determine if PJP treatment needed. Needs bronchoscopy - inpatient vs. outpatient depending clinical course. * Pulmonology following * Repeat chest x-ray and echocardiogram to assess cardiac function * Pending urine Legionella, pneumococcal, mycoplasma IgM, sputum for fungus and sputum for PJP (3) COPD with acute lower respiratory infection: Code(s): J44.0 - Chronic obstructive pulmonary disease with (acute) lower respiratory infection Status: Acute Assessment and Plan: * no wheezing this AM. Has some increased sputum production and dyspnea * pulmonology following, transitioned to IV solumedrol to prednisone 40 mg with plans to resume home prednisone 10mg after acute treatment. Started inhaled budesonide. * continue scheduled Duoneisaura, Mucinex, prednisone 40 mg p.o. q.day 3 (4) Acute on chronic respiratory failure with hypoxia and hypercapnia: Code(s): J96.21 - Acute and chronic respiratory failure with hypoxia; J96.22 - Acute and chronic respiratory failure with hypercapnia Status: Acute Assessment and Plan: * on 2-3L NC O2 baseline * ABG with pH 7.38, pCO2 60.4, pO2 50.5. pCO2 higher than baseline, but work of breathing improved so BiPAP was deferred. * required up to 5L in ED, now back to baseline 3L * monitor O2 sat (5) Lung mass: Code(s): R91.8 - Other nonspecific abnormal finding of lung field Status: Acute Assessment and Plan: * CTA chest with new bilateral upper lobe masses, largest 2.4 cm concerning for bronchogenic carcinoma * pulmonology consulted, will need outpatient bronchoscopy with EUS at tertiary center likely as outpatient (6) HIV (human immunodeficiency virus infection): Qualifiers: HIV symptom status: unspecified Qualified Code(s): Z21 - Asymptomatic human immunodeficiency virus [HIV] infection status Code(s): B20 - Human immunodeficiency virus [HIV] disease Status: Acute Assessment and Plan: * managed on darunavir, ritonavir, and Truvada - continue * CD4 count 176 04/2024 - patient was off medication at this time. Reports she restarted ART 2 months ago. * viral load and CD4 count pending * ID following * Begin empiric PJP coverage with Bactrim double-strength p.o. 2 tablets q.8 hours * Pending expectorated sputum for routine Gram stain and culture, fungal culture, cytopathology and special stains for PJP * Await viral load and obtain genotype analysis (7) Chronic steroid use: Status: Acute Assessment and Plan: * on prednisone 10mg daily Subjective Date/time seen: 05/30/25 07:07 Interval history: 65-year-old female with a past medical history of COPD with chronic hypoxic respiratory failure on home O2 of 2 L, chronic prednisone therapy of 10 mg daily, HIV and essential hypertension who presented to the ER from home via EMS due to increased shortness of breath. 05/30/2025 Patient sitting comfortably in bed at time of examination. Denies any chest pain, nausea/vomiting or abdominal pain at this time. Still endorsing some shortness of breath, but improved since yesterday. Still does not feel 100% but reports continually improving. Remains on 3 L nasal cannula which is reportedly her baseline O2 requirement. Remains afebrile, leukocytosis improving, 11.9 down from 15.5 yesterday. Pulmonology continues to follow - repeat chest x-ray and echo today to assess cardiac function. Review of Systems Review of Systems: 12 systems were reviewed with pertinent positives and negatives per HPI. Except as documented in the HPI, all other systems were reviewed and are negative. All systems reviewed & are unremarkable except as noted in HPI and below Exam Narrative: General: NAD, chronically ill-appearing Eyes: EOMI ENT: neck supple Cardiovascular: Regular rate and rhythm Respiratory: + rhonchi of RLL, respirations even and unlabored on 3L NC Gastrointestinal: Soft, non tender Genitourinary: no suprapubic tenderness Musculoskeletal: No edema Skin: warm, dry Neuro: Alert. Psych: Mood appropriate Objective Data Vital Signs Vital Signs: Vital Signs - 24 hr 05/29/25 08:00 05/29/25 08:00 05/29/25 08:35 Temperature Pulse Rate 95 96 Respiratory Rate 18 Blood Pressure Pulse Oximetry 98 Oxygen Delivery Nasal Cannula Oxygen Flow Rate 3 05/29/25 08:35 05/29/25 08:43 05/29/25 09:17 Temperature Pulse Rate 96 100 95 Respiratory Rate 18 21 H Blood Pressure 155/88 H Pulse Oximetry 98 98 Oxygen Delivery Nasal Cannula Oxygen Flow Rate 3 05/29/25 12:00 05/29/25 13:03 05/29/25 13:09 Temperature Pulse Rate 94 104 H 107 H Respiratory Rate 24 H 28 H Blood Pressure Pulse Oximetry Oxygen Delivery Oxygen Flow Rate 05/29/25 14:00 05/29/25 16:00 05/29/25 20:00 Temperature 98.6 F Pulse Rate 97 99 Respiratory Rate 16 Blood Pressure 147/77 H Pulse Oximetry 98 95 Oxygen Delivery Nasal Cannula Oxygen Flow Rate 3 05/29/25 20:00 05/29/25 20:03 05/29/25 21:03 Temperature 98.0 F Pulse Rate 97 84 Respiratory Rate 16 Blood Pressure 146/81 H Pulse Oximetry 96 96 Oxygen Delivery Nasal Cannula Oxygen Flow Rate 3 05/29/25 21:04 05/29/25 21:12 05/29/25 22:50 Temperature Pulse Rate 88 91 Respiratory Rate 18 18 Blood Pressure Pulse Oximetry 95 Oxygen Delivery Nasal Cannula Oxygen Flow Rate 3 05/30/25 00:00 05/30/25 04:00 05/30/25 05:03 Temperature 98.3 F Pulse Rate 78 79 86 Respiratory Rate 16 Blood Pressure 161/96 H Pulse Oximetry 94 Oxygen Delivery Oxygen Flow Rate Intake/Output Intake/Output: Intake & Output 05/27/25 05/28/25 05/29/25 05/30/25 23:59 23:59 23:59 23:59 Intake Total 50 2260 2502 1100 Output Total 250 500 800 Balance 50 2009 2001 300 Meds/Results Medications: Active Medications Generic Name Dose Route Start Last Admin Trade Name Freq PRN Reason Stop Dose Admin Albuterol 1 puff 05/28/25 09:10 05/28/25 16:23 Albuterol Sulfate (*Sp) Aerosol 1 Puff INHALATION 1 puff QID PRN Administration Shortness Of Breath Or Wheezing Albuterol/Ipratropium 3 ml 05/28/25 02:00 05/30/25 04:20 Ipratropium 0.5 Mg/Albuterol Sulfate 2.5 Mg Ampul.Neb 3 Ml INHALATION Not Given Q6HRT [facility] Benzonatate 200 mg 05/29/25 13:00 05/29/25 17:02 Benzonatate 100 Mg Capsule PO 200 mg TID SOHAM Administration Budesonide 0.5 mg 05/29/25 10:00 05/29/25 21:01 Budesonide Respule Neb 0.5 Mg/2 Ml Amp INHALATION 0.5 mg Q12HRT SOHAM Administration Emtricitabine/Tenofovir 2 tab 05/28/25 09:00 05/29/25 09:19 Emtricitabine-Tenofovir 100 Mg-150 Mg Tablet PO 2 tab DAILY SOHAM Administration Guaifenesin 1,200 mg 05/28/25 13:30 05/29/25 20:13 Guaifenesin 12 Hr 600 Mg Tabcr PO 1,200 mg Q12HR SOHAM Administration Cefepime HCl 2 gm/ Sodium 50 mls @ 100 mls/hr 05/28/25 10:00 05/30/25 02:03 Chloride IVPB Infused Q8H SOHAM Infusion Vancomycin HCl 1,500 mg in 500 mls @ 250 mls/hr 05/29/25 12:00 05/30/25 00:54 Vancomycin 1,500 Mg/Ns 500 Ml IVPB Infused Q12H SOHAM Infusion Losartan Potassium 25 mg 05/28/25 09:00 05/29/25 09:19 Losartan Potassium 25 Mg Tablet PO 25 mg DAILY SOHAM Administration Darunavir 800 Mg 800 mg 05/28/25 15:50 05/29/25 09:20 Tablet Home Med PO 06/27/25 15:49 800 mg DAILY SOHAM Administration Ritonavir 100 Mg 100 mg 05/28/25 15:50 05/29/25 09:20 Tablet Homemed PO 06/27/25 15:49 100 mg DAILY SOHAM Administration Nystatin 5 ml 05/28/25 09:00 05/29/25 20:13 Nystatin 100,000 Units/Ml Susp 5 Ml Oral.Susp PO 5 ml QID SOHAM Administration Prednisone 40 mg 05/29/25 08:00 05/29/25 09:19 Prednisone 20 Mg Tablet PO 40 mg DAILY@0800 SOHAM Administration Sodium Chloride 2 spray 05/28/25 09:10 05/28/25 10:43 Saline 0.65% James Soln 44 Ml Btl NASAL 2 spray QID PRN Administration Nasal Congestion Radiology Results: ITS Impressions Chest X-Ray 05/27/25 19:52 Impression: 1: Bibasilar airspace disease, compatible with pneumonia. Chest CTA 05/27/25 20:02 IMPRESSION: 1. New bilateral upper lobe masses, largest measuring up to 2.4 cm, concerning for bronchogenic carcinoma. Abnormal hilar lymphadenopathy, suspicious for metastatic disease. 2: Right middle lobe and lingular airspace consolidation, consistent with pneumonia. 3: No large central pulmonary embolism. Evaluation of peripheral pulmonary arteries somewhat limited due to motion artifact and contrast bolus timing. Labs Labs: Laboratory Results - last 24 hr 05/27/25 05/28/25 05/28/25 21:16 09:31 14:26 WBC RBC Hgb Hct MCV MCH MCHC RDW Plt Count MPV Immature Gran % (Auto) Neut % (Auto) Lymph % (Auto) [place] % (Auto) Eos % (Auto) Baso % (Auto) Lymph # (Auto) [place] # (Auto) Eos # (Auto) Baso # (Auto) Abs Immat Gran (auto) Absolute Neuts (auto) Absolute Nucleated RBC Nucleated RBC % Sodium Potassium Chloride Carbon Dioxide Anion Gap BUN Creatinine Estim Creat Clear Calc Estimated GFR Glucose Calcium Total Bilirubin AST ALT Alkaline Phosphatase Total Protein Albumin Vancomycin Trough Chlamy pneumoniae PCR Not detected Adenovirus (PCR) Not detected B. pertussis DNA (PCR) Not detected B.parapertussis DNA PCR Not detected Coronavirus OC43 (PCR) Not detected Coronavirus HKU1 (PCR) Not detected Coronavirus 229E (PCR) Not detected Coronavirus NL63 (PCR) Not detected Human Metapneumovir PCR Not detected Influenza A (H1) PCR Not detected Influ A (H1/09) PCR Not detected Influenza A (H3) PCR Not detected Influenza Type A (PCR) Not detected Influenza Type B (PCR) Not detected M. pneumoniae (PCR) Not detected Parainfluenza 1 (PCR) Not detected Parainfluenza 2 (PCR) Not detected Parainfluenza 3 (PCR) Not detected Parainfluenza 4 (PCR) Not detected RSV (PCR) Not detected Entero/Rhino (PCR) Not detected SARS-CoV-2 (PCR) Not detected Urine Pneumococcal Ag Cancelled Miscellaneous Test Comment 05/29/25 05/30/25 09:52 04:56 WBC 11.9 H RBC 3.82 L Hgb 10.0 L Hct 33.1 L MCV 86.6 MCH 26.2 MCHC 30.2 L RDW 16.4 H Plt Count 327 MPV 9.3 Immature Gran % (Auto) 1.3 H Neut % (Auto) 80.0 H Lymph % (Auto) 12.6 L [place] % (Auto) 5.8 Eos % (Auto) 0.0 Baso % (Auto) 0.3 Lymph # (Auto) 1.50 [place] # (Auto) 0.7 H Eos # (Auto) 0.0 Baso # (Auto) 0.0 Abs Immat Gran (auto) 0.16 H Absolute Neuts (auto) 9.5 H Absolute Nucleated RBC 0.000 Nucleated RBC % 0.0 Sodium 135 L Potassium 3.4 Chloride 95 L Carbon Dioxide 39 H Anion Gap 1 L BUN 12 Creatinine 0.41 L Estim Creat Clear Calc 79 Estimated GFR > 60 Glucose 94 Calcium 8.0 L Total Bilirubin < 0.1 L AST 28 ALT 23 Alkaline Phosphatase 62 Total Protein 5.8 L Albumin 2.8 L Vancomycin Trough < 5.0 L Chlamy pneumoniae PCR Adenovirus (PCR) B. pertussis DNA (PCR) B.parapertussis DNA PCR Coronavirus OC43 (PCR) Coronavirus HKU1 (PCR) Coronavirus 229E (PCR) Coronavirus NL63 (PCR) Human Metapneumovir PCR Influenza A (H1) PCR Influ A (H1/09) PCR Influenza A (H3) PCR Influenza Type A (PCR) Influenza Type B (PCR) M. pneumoniae (PCR) Parainfluenza 1 (PCR) Parainfluenza 2 (PCR) Parainfluenza 3 (PCR) Parainfluenza 4 (PCR) RSV (PCR) Entero/Rhino (PCR) SARS-CoV-2 (PCR) Urine Pneumococcal Ag Miscellaneous Test Quality VTE Prophylaxis VTE prophylaxis: pharmacologic ordered
[2025-05-30 08:05] LABS: CRP 3.1 mg/dL (<1.0)
[2025-05-30 08:10] LABS: NT Pro B Type Natriuretic Pept 805 pg/mL (19.9-100)
[2025-05-30 08:17] LABS: Procalcitonin 0.0 ng/mL
--- NOTE | 2025-05-30 08:21 | ECHO_ITS ---
Patient Info Name: Roxanne Davey Age: 65 years : 1960 Gender: Female Ht: 63 in Wt: 97 lbs BSA: 1.39 m2 HR: 86 bpm BP: 161 / 91 mmHg Heart Rhythm: Sinus Rhythm Technical Quality: Fair Exam Date: 05/30/2025 9:38 AM Patient Status: I Admit Date: 05/27/2025 Exam Type: CA echo doppler color flow Complete two-dimensional, color flow and Doppler transthoracic echocardiogram is performed. Staff Referring Physician: Brenton Kebede Care Giver: Winston Pan III Attending Provider: Char Sierra DO Summary 1. Complete two-dimensional, color flow and Doppler transthoracic echocardiogram is performed. 2. Left ventricular chamber dimension is mildly enlarged. 3. Left ventricular systolic function is mildly reduced, estimated at 45-50. 4. There is mildly increased left ventricular wall thickness. 5. The left ventricular diastolic function is grade I diastolic dysfunction. 6. Left atrial chamber dimension is mildly enlarged. 7. There is mild aortic valve regurgitation. 8. There is moderate mitral valve regurgitation. 9. The mitral valve has thickened leaflets. 10. There is mild tricuspid valve regurgitation. Left Ventricle Left ventricular chamber dimension is mildly enlarged. Left ventricular systolic function is mildly reduced, estimated at 45-50. There is mildly increased left ventricular wall thickness. The left ventricular diastolic function is grade I diastolic dysfunction. Right Ventricle Right ventricular chamber dimension is normal. Right ventricular systolic function is normal. Left Atria Left atrial chamber dimension is mildly enlarged. Right Atria Right atrial chamber dimension is normal. Atrial Septum Intact interatrial septum visualized by color flow imaging. Aortic Valve The aortic valve is trileaflet. There is mild aortic valve sclerosis. There is no aortic valve stenosis. There is mild aortic valve regurgitation. Pulmonic Valve The pulmonic valve is normal. There is no pulmonic valve stenosis. There is trace pulmonic regurgitation. Mitral Valve The mitral valve has thickened leaflets. There is no mitral valve stenosis. There is moderate mitral valve regurgitation. Tricuspid Valve The tricuspid valve leaflets are normal. There is no significant tricuspid valve stenosis. There is mild tricuspid valve regurgitation. No pulmonary hypertension, estimated pulmonary arterial systolic pressure is 32 mmHg. Pericardium/Pleural The pericardium appears normal. There is no pericardial effusion. Inferior Vena Cava Dilated inferior vena cava with >50% collapse upon inspiration consistent with elevated right atrial pressure, 10 mmHg. Aorta The aortic root size at the sinus of Valsalva is normal. Left Ventricular Outflow Tract Name Value Normal LVOT 2D LVOT Diameter 2.1 cm LVOT Doppler LVOT Peak Velocity 96 cm/s LVOT Peak Gradient 4 mmHg LVOT Mean Gradient 2 mmHg LVOT VTI 19 cm LVOT VTI/AV VTI Ratio 0.8 LVOT Stroke Volume 69 ml LVOT CO 14.9 l/min LVOT CI 10.7 l/min/m2 Pulmonic Valve Name Value Normal PV Doppler PV Peak Velocity 119 cm/s PV Peak Gradient 6 mmHg Mitral Valve Name Value Normal MV Doppler MV Peak Gradient 5 mmHg MV Mean Gradient 2 mmHg MV Area (Cont Eq VTI) 3.9 cm2 MV Regurgitation Doppler MR Peak Gradient 200 mmHg MV Diastolic Function MV E Peak Velocity 76 cm/s MV A Peak Velocity 79 cm/s MV E/A 1.0 MV Decel Time (PW) 123 ms MV Annular TDI MV E/e' (Septal) 9.4 MV E/e' (Lateral) 9.1 MV E/e' (Average) 9.3 Tricuspid Valve Name Value Normal TV Regurgitation Doppler TR Peak Velocity 232 cm/s TR Peak Gradient 22 mmHg Estimated PAP/RSVP RA Pressure 10 mmHg <=5 PA Systolic Pressure 32 mmHg <36 RV Systolic Pressure 32 mmHg <36 Aortic Valve Name Value Normal AV Doppler AV Peak Velocity 125 cm/s AV Peak Gradient 6 mmHg AV Mean Gradient 3 mmHg AV VTI 25 cm AV Area (Cont Eq VTI) 2.7 cm2 >=3.0 AV Area (Cont Eq Jack) 2.8 cm2 AV DI (Jack) 0.77 AV Regurgitation 2D LVOT Area 3.6 cm2 Ventricles Name Value Normal LV Dimensions 2D/MM LVOT Diameter 2.1 cm LV Fractional Shortening/Ejection Fraction 2D/MM LV Diastolic Volume (4C MOD) 89 ml LV EF (4C MOD) 45 % LV Diastolic Volume (2C MOD) 89 ml LV EF (2C MOD) 46 % LV Diastolic Volume (BP MOD) 89 ml 46-106 LV Diastolic Volume Index (BP MOD) 64 ml/m2 29-61 LV Systolic Volume (BP MOD) 51 ml 14-42 LV Systolic Volume Index (BP MOD) 37 ml/m2 8-24 LV EF (BP MOD) 42 % 54-74 LV Diastolic Length (4C) 7.2 cm LV Systolic Length (4C) 6.2 cm LV Stroke Volume (4C MOD) 40 ml Atria Name Value Normal LA Dimensions LA Volume (4C A-L) 35 ml LA Volume (BP A-L) 38 ml RA Dimensions RA Systolic Major [place] Length (4C) 4.6 cm 2.2-2.8 RA Area (4C) 15.3 cm2 <=18.0 Report Signatures
--- NOTE | 2025-05-30 08:23 | P.PNPL_ITS ---
Progress Note: A&P Assessment and Plan (1) Community acquired pneumonia: Qualifiers: Laterality: unspecified laterality Qualified Code(s): J18.9 - Pneumonia, unspecified organism Code(s): J18.9 - Pneumonia, unspecified organism Status: Acute Assessment and Plan: Patient with a history of COPD and severe apical predominant panlobular emphysema, HIV positive, treated for pneumonia ceftriaxone and azithromycin in the hospital from 04/12 to 04/16 and discharged on Augmentin. She did improved back to her baseline. Currently she has 7 days of shortness of breath, change in her phlegm, right-sided pleuritic chest pain, worsening cough and shortness of breath with a leukocytosis at 12.[address] angiogram of the chest that shows infiltrates and consolidation in the right middle lobe and lingula. She has MRSA swab positive, COVID, influenza, RSV RT PCR assay negative. 05/28/25 Plan: Patient was changed to vancomycin, cefepime and azithromycin was continued. She is feeling better today and says that her pleuritic pain is now resolved, her phlegm is gone from green to yellow, she is afebrile but remains with a leukocytosis 13.7. I have sent for urine pneumococcal, urine Legionella, extended respiratory pathogen panel and serum mycoplasma IgM. Infectious Disease has been consulted. I will attempt to wean her steroids quickly back to her baseline of 10 mg of prednisone a day. Will continue these antibiotics currently. Id consult pending for management of antibiotics as w ell as antiretrovirals. 05/29/25: patient tells me she is improved. Overall she states she is breathing 60% back to her normal. Her cough is increased since yesterday but it is dry and her phlegm is back to her baseline. She has no hemoptysis, fever, chills. Currently she is on 3 L nasal cannula with saturations 94% I decreased her to 2 L and her saturations were 93%. She is afebrile. White blood cell count 15.5, creatinine 0.39. Cumulative she is +2.3 L since admission. Plan: patient improving on vancomycin, cefepime and azithromycin all started on 05/28/2025. respiratory pathogen panel, urine pneumococcal, urine Legionella, urine blasto pending. Oxygenation improving with goal saturation 90-94%. 05/30/2025: Patient tells me she continues to slowly improve. States she fee ls okay. Breathing is 70% back to her normal. She has a severe cough with light yellow phlegm and no hemoptysis. When I enter the room she was sleeping on 3 L nasal cannula and I decreased her to room air and after 6 minutes her saturations decreased to 89%. I placed her on 2 L nasal cannula her saturations were 95%. White blood cell count 11.9, creatinine 0.41. Procalcitonin was 0 on 05/27/2025 and is 0 today. Her COPD was 14.7 on 05/28/2025 and today is 3.1. Her BNP was 514 on 05/27/2025 and today is 805. CD4 count is 56. Patient had an overnight oximetry on 3 L nasal cannula with recording duration of 6 hours and 9 minutes. Average saturation 95%. Low saturation 85%. Time with saturation less than or equal to 88% was 13 minutes, oxygen desaturation index 1.2. Yesterday she was positive 2.0 L, cumulative she is positive 4.3 L since admission, Her weight today is 44 kg. Plan: slowly improving on vancomycin, cefepime and has completed azithromycin. Respiratory pathogen panel negative. Urine Legionella, urine pneumococcal, sputum for fungus, sputum for PJP, mycoplasma IgM urine histo all pending. Her CRP is improved, she remains afebrile and her white blood cell count is improving. I will perform a chest x-ray today and an echocardiogram to assess cardiac function. Will follow with you. (2) COPD (chronic obstructive pulmonary disease): Code(s): J44.9 - Chronic obstructive pulmonary disease, unspecified Status: Acute Assessment and Plan: Regarding her COPD the patient was diagnosed about 5 years ago. She has been on oxygen 2 years. She has been on home prednisone 10 mg a day for 2-3 years and has never been attempted to be weaned off. PFTs 06/21/2024 with an FEV1 of 0.82 L, 35% predicted, ratio 39%, hyperinflation, severely decreased DLCO at remain moderately decreased when adjusted for alveolar volume and in comparison to 08/05/2022 there is worsening in her FVC, FEV1 and diffusing capacity and increase in her total lung capacity, functional residual capacity and residual volume. She tells me she uses 2 L at rest, 3 L with activity and 2-1/2 L when she sleeps. 2 L NC ABG 04/04/2024 7.43/41/69. On a good day she can walk 1.5 room lengths. Patient was initially wheezing but currently has no wheezes. ABG on 3 L in the emergency room 7.39/60/51. 05/28/25: Plan: Patient receive Solu-Medrol 60 mg IV q.6 hours x3 doses, last at 5:40 AM this morning. Given her bilateral pneumonia I will attempt to quickly wean her steroids back to her baseline and will place her on 40 mg p.o. q.day starting on 05/29/2025. I will continue ipratropium and albuterol nebulizers q.6 hours. This will provide adequate beta agonist and muscarinic antagonist and I will discontinue her home Advair and incruse ellipta. Will start guaifenesin 1200 mg p.o. b.i.d.. I will treat the patient for pneumonia and or COPD exacerbation and eventually repeat a blood gas to determine if she remains hypercarbic. Goal saturation 90-94%, adjust oxygen accordingly. 05/29/25: Patient with wheezes left upper lobe but otherwise states her breathing is improving. Plan: The patient is receiving prednisone 40 mg p.o. today. I will decrease her to prednisone 10 mg p.o. q.day starting 05/30/2025. I will start budesonide 500 mcg nebulizers b.i.d. today. Continue ipratropium and albuterol nebulizers q.6 hours. Continue guaifenesin 1200 p.o. b.i.d.. Will add Tessalon Perles 200 mg p.o. t.i.d. for her cough. 05/30/25: No wheezes today. She has persistent coughing. She has minimal phlegm and no difficulty expectorating. Plan: I will continue prednisone 40 mg p.o. q.day day 3 of steroids. Continue DuoNebs q.6, budesonide nebs b.i.d., guaifenesin 1200 p.o. b.i.d. and Tessalon Perles 200 t.i.d.. (3) Lung mass: Code(s): R91.8 - Other nonspecific abnormal finding of lung field Status: Acute Assessment and Plan: Patient with 55 pack year tobacco use, quit in 2021. CT angiogram of the chest was reviewed with Radiology and was negative for PE, and compared to 02/01/2024 there was unchanged upper lobe calcified granulomas and severe panlobular emphysema, there were new right middle lobe and lingula dense infiltrates with consolidation and a new right upper lobe 2.4 cm nodule with right hilar lymph node measuring 4.1 x 2.1 cm that was not associated with infiltrates. There is a new mass in the lingula measuring 2 x 1.1 cm and this was associated with adjacent infiltrates. 05/28/2025: Plan: Patient does desire further workup of this right lung mass. patient cannot undergo a CT-guided biopsy at [facility] as she is on supplemental oxygen and deemed too high risk to perform the procedure at [facility]. Furthermore the mass is centrally located. Patient has a right hilar mass and ideally she would undergo bronchoscopy with EBUS and sampling of the right hilar mass which should be performed after she has been treated for her acute pneumonia. Bronchoscopy with EBUS cannot be done at [facility]. Patient is willing to be referred to a higher level of care facility and at this point will treat the patient for her acute pneumonia and when she is recovered will refer to [facility] in [place], Dr. Owen, as an outpatient. 05/29: I have pushed the CT scan from 05/27/2025 and 02/01/2024 to [facility] Plan: I discussed with Dr. Owen and he prefers to complete treatment for pneumonia and then his staff will call him to set up an outpatient bronchoscopy with EBUS. Patient's best phone number is [phone] and I forwarded this phone number to him. Subjective Date/time seen: 05/30/25 08:23 Interval history: 02/20/2025: This is a new pulmonary consult for COPD and lung mass 65-year-old with a history of GOLD grade 3 group E COPD on home oxygen 2 L and home prednisone 10 a day, HIV on antiretrovirals, HTN. Regarding her COPD the patient was diagnosed about 5 years ago. She has been on oxygen 2 years. She has been on home prednisone 10 mg a day for 2-3 years and has never been attempted to be weaned off. PFTs 06/21/2024 with an FEV1 of 0.82 L, 35% predicted, ratio 39%, hyperinflation, severely decreased DLCO at remain moderately decreased when adjusted for alveolar volume and in comparison to 08/05/2022 there is worsening in her FVC, FEV1 and diffusing capacity and increase in her total lung capacity, functional residual capacity and residual volume. She tells me she uses 2 L at rest, 3 L with activity and 2-1/2 L when she sleeps. 2 L NC ABG 04/04/2024 7.43/41/69. On a good day she can walk 1.5 room lengths. patient smoked tobacco from age 7 to age 62 at 1 pack per day. 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 She lives in [place] but never worked in the [employer], denies sand blasting, welding, asbestos were, professional painting, mining, quarry work or construction work. Patient is HIV and previously saw Dr. Franco and was on antiretroviral medications and she tells me her levels were undetectable. Dr. Franco than retired and she could not find a physician but continued to take medicines. Currently she is seeing a PCP who prescribes her medicines. She does not know the status of her viral load. Patient states that she does have continued problems with thrush. Recently admitted to [facility] 04/12/2025 through 04/16/2025. treated for COPD exacerbation and pneumonia. Discharged on Augmentin and to continue her Symbicort, Spiriva and prednisone 10 Ed. continue her retrovirals. Patient tells me she her got back to her normal from a respiratory viewpoint. Approximately 7 days ago the patient developed shortness of breath initially with no change in her phlegm. over the last 3 days she developed right-sided pleuritic chest pain. Over the last 2 days she developed cough with worsening phlegm that was now dark green. She had increased wheezing and shortness of breath. Her dyspnea on exertion worsened and she presented to the emergency department. in the emergency in her blood pressure is 159/98, heart rate 102, respirations 35, she is placed on 5 L nasal cannula saturations 96%. She had end expiratory wheezes. Procalcitonin 0.0. BNP 514. MRSA nasal swab p ositive. COVID influenza and RSV RT PCR assay negative. CT angiogram of the chest was reviewed with Radiology and was negative for PE, and compared to 02/01/2024 there was unchanged upper lobe calcified granulomas and severe panlobular emphysema, there were new right middle lobe and lingula dense infiltrates with consolidation and a new right upper lobe 2.4 cm nodule with right hilar lymph node measuring 4.1 x 2.1 cm that was not associated with infiltrates. There is a new mass in the lingula measuring 2 x 1.1 cm and this was associated with adjacent infiltrates. She was treated for COPD exacerbation and pneumonia with Solu-Medrol, bronchodilators, ceftriaxone and azithromycin. ceftriaxone and azithromycin were changed to cefepime and vanco on admission to the hospital. 05/28/2025: The patient tells me she is feeling better, she has 50% back to her normal, her phlegm is gone from dark green to yellow and her right-sided pleuritic pain is resolved. She is afebrile. Currently she is on 3 L nasal cannula saturations 93%. Her white blood cell count is 13.7, her creatinine is 0.39, her CRP is 14.7. 05/29/25: patient tells me she is improved. Overall she states she is breathing 60% back to her normal. Her cough is increased since yesterday but it is dry and her phlegm is back to her baseline. She has no hemoptysis, fever, chills. Currently she is on 3 L nasal cannula with saturations 94% I decreased her to 2 L and her saturations were 93%. She is afebrile. White blood cell count 15.5, creatinine 0.39. Cumulative she is +2.3 L since admission. 05/30/2025: Patient tells me she continues to slowly improve. States she feels okay. Breathing is 70% back to her normal. She has a severe cough with light yellow phlegm and no hemoptysis. When I enter the room she was sleeping on 3 L nasal cannula and I decreased her to room air and after 6 minutes her saturations decreased to 89%. I placed her on 2 L nasal cannula her saturations were 95%. White blood cell count 11.9, creatinine 0.41. Procalcitonin was 0 on 05/27/2025 and is 0 today. Her COPD was 14.7 on 05/28/2025 and today is 3.1. Her BNP was 514 on 05/27/2025 and today is 805. Patient had an overnight oximetry on 3 L nasal cannula with recording duration of 6 hours and 9 minutes. Average saturation 95%. Low saturation 85%. Time with saturation less than or equal to 88% was 13 minutes, oxygen desaturation index 1.2. Yesterday she was positive 2.0 L, cumulative she is positive 4.3 L since admission, Her weight today is 44 kg. DATA: 05/27/25: EXAMINATION: CTA chest PE protocol INDICATION: Right-sided pleuritic chest pain. COMPARISON: CT dated 02/01/2024. FINDINGS: Study is technically adequate. No evidence for pulmonary embolism. There is bilateral hilar lymphadenopathy. There is subcarinal lymphadenopathy. Right hilar lymph node measuring 4.1 x 2.1 cm. No significant pleural or pericardial effusion. There is a densely calcified granuloma in the right upper lobe. There is scarring in the left upper lobe with calcified granuloma. There is a new mass in the right upper lobe, image 69, measuring 2.4 x 1.8 cm, concerning for bronchogenic carcinoma. There is a new mass in the lingula with irregular configuration measuring 2 x 1.1 cm. There is right middle lobe and lingular airspace consolidation. No pneumothorax. There is emphysema. There is 2.9 cm hypodense mass of the right hepatic lobe with marginal enhancement. Mild thoracic spondylosis with accentuated kyphosis. There is a second peripherally enhancing mass in the left hepatic lobe measuring 1.8 cm. IMPRESSION: 1. New bilateral upper lobe masses, largest measuring up to 2.4 cm, concerning for bronchogenic carcinoma. Abnormal hilar lymphadenopathy, suspicious for metastatic disease. 2: Right middle lobe and lingular airspace consolidation, consistent with pneumonia. 3: No large central pulmonary embolism. Evaluation of peripheral pulmonary arteries somewhat limited due to motion artifact and contrast bolus timing. 06/21/2024: This is a pulmonary function test with spirometry, plethysmography and diffusing capacity. The test was performed and results interpreted in accordance with the 2019 and 2005 ATS/ERS Task Force guidelines respectively using the Global Lung Function Initiative-2012 reference equations. Patient demonstrated good effort and cooperation. Reproducibility criteria were met. The quality of the spirometry maneuver was Grade A. Findings: Spirometry: There is decreased maximal expiratory airflow at all lung volumes with concave expiratory flow tracing. The FVC is 2.09 L, 70% predicted. The FEV1 is 0.82 L, 35% predicted. The FEV1: FVC ratio is 39%. Plethysmography: The total lung capacity is 6.74 L, 137% predicted. The functional residual capacity is 4.62 L, 167% predicted. The residual volume is 4.59 L, 232% predicted. The residual volume: Total lung capacity ratio 68%. Diffusing capacity: The diffusing capacity unadjusted for hemoglobin and carboxy hemoglobin is 6.1, 29% predicted. The diffusing capacity adjusted for alveolar volume is 2.06, 46% predicted. In comparison to previous pulmonary function testing on 08/05/2022, the pre bronchodilator FVC has decreased from 2.80 L to 2.09 L. The pre bronchodilator FEV1 has decreased from 1.19 L to 0.82 L. The total lung capacity is unchanged from 6.30 L to 6.74 L. The functional residual capacity is increased from 3.81 L to 4.62 L. the residual volume has increased from 3.45 L to 4.59 L. the residual volume: Total lung capacity ratio has increased from 55% to 68%. The diffusing capacity unadjusted for hemoglobin and carboxyhemoglobin is decreased from 9.1 to 6.1. The diffusing capacity adjusted for alveolar volume has decreased from 2.55 to 2.06 Impression: There is a severe obstructive abnormality. The increase in residual volume to total lung volume ratio is consistent with hyperinflation from an obstructive abnormality. The diffusing capacity unadjusted for hemoglobin and carboxyhemoglobin is severely decreased and remains moderately decreased when adjusted for alveolar volume. In compared to previous pulmonary function testing on 08/05/2022, there has been a greater than anticipated time dependent decrease in the FVC, FEV1, and diffusing capacity. There has been a greater than anticipated time dependent increase in the total lung capacity, functional residual capacity, residual volume, and the residual volume: Total lung capacity ratio. clinical correlation is recommended. 03/02/24: EXAMINATION: MR abdomen wo/w con INDICATION: Liver mass. TECHNIQUE: Magnetic resonance imaging (MRI) of the abdomen was performed without and with 9 mL MultiHance intravenous contrast. COMPARISON: Chest CT 02/01/2024 FINDINGS: There are 5 hemangiomas in the liver measuring up to 3.2 cm characterized by interrupted peripheral puddling of contrast. There is an 8 mm arterially hyperenhancing mass in left hepatic lobe without washout, likely a hemangioma or focal nodular hyperplasia. There are a few cysts in the liver measuring up to 7 mm. The gallbladder, spleen, pancreas, adrenal glands, and kidneys are normal. There are no dilated loops of bowel. IMPRESSION: 1. Benign masses in the liver. 02/01/2024: CT Scan of the Chest without Contrast: Clinical Indication: Lung cancer screening, nicotine dependence Technique: Contiguous sections were acquired throughout the chest without intravenous contrast. Dose reduction technique was used on this scan by utilizing automated exposure control and iterative reconstruction technique. The dose-length product (DLP) was 66.12 mGy-cm. Findings: There is no evidence of any significant mediastinal, hilar or axillary lymphadenopathy. Coronary artery calcifications are present.. There is no evidence of pleural or pericardial effusion. There is severe emphysema with biapical scarring and biapical calcified granulomas. There is a 4 mm right upper lobe pulmonary nodule (axial image 52). Images through the upper abdomen reveal 2.9 cm hypodense, noncystic hepatic mass in the right hepatic lobe there is an additional 1.6 cm hypodense mass in the anterior left hepatic lobe.. Chronic compression deformity of L1 noted. Impression: Lung RADS 2-S: Benign appearance. 12 month follow-up screening CT advised. 2 hypodense hepatic masses, measuring 2.9 cm and 1.6 cm in size respectively. These are indeterminate. Pre and postcontrast hepatic MR recommended to further assess. 08/05/2022: This is a 6 minute walk test. The test was performed and interpreted in accordance with the 2014 ERS/ATS task force guidelines. Findings: The patient's resting room air oxygen saturation measured by pulse oximetry was 95%, the heart rate was 68 bpm, and the modified Stevie dyspnea score was 0. Patient ambulated for 366 meters and oxygen saturation remained 94 to 96%. At the end of the study the heart rate was 74 bpm and the modified Stevie dyspnea score was 0. The patient did not qualify for supplemental oxygen at rest or with ambulation. There are no prior studies for comparison. 08/05/2022: Echo Summary 1. Complete two-dimensional, color flow and Doppler transthoracic echocardiogram is performed. 2. Left ventricular systolic function is normal, estimated at 50-55%. 3. The left ventricular diastolic function is grade I diastolic dysfunction. 4. Right ventricular systolic function is normal. 5. There is mild mitral valve regurgitation. 6. There is mild tricuspid valve regurgitation. Right Ventricle Right ventricular chamber dimension is normal. Right ventricular systolic function is normal. Right Atria Right atrial chamber dimension is normal. Atrial Septum Intact interatrial septum visualized by color flow imaging. Review of Systems Constitutional: Constitutional: Reports no additional constitutional complaints Eyes: Eyes: Reports no additional eye complaints ENT: Reports system reviewed and no additional complaints, except as documented Cardiovascular: Cardiovascular: Reports no additional cardiovascular complaints Respiratory: Respiratory: Reports no additional respiratory complaints Gastrointestinal: Gastrointestinal: Reports no additional gastrointestinal complaints Musculoskeletal: Musculoskeletal: Reports no additional musculoskeletal complaints Neurologic: Reports system reviewed and no additional complaints, except as documented Psychiatric: Psychiatric: Reports no additional psychiatric complaints Endocrine: Endocrine: Reports no additional endocrine complaints Hematologic/Lymphatic: Hematologic/Lymphatic: Reports no additional hematologic/lymphatic complaints Allergic/Immunologic: Allergic/Immunologic: Reports no additional allergic/immunologic complaints Exam Const: General: cooperative, healthy appearing and comfortable Orientation/consciousness: oriented to person, oriented to place and oriented to time HENMT: Head: normal to inspection Ears: hearing grossly normal bilaterally Eyes: General: appearance normal, both eyes and all related structures Neck: Neck: normal visual inspection Chest: Chest palpation & inspection: normal inspection of the chest Resp: Effort & Inspection: normal respiratory effort and able to speak in complete sentences Auscultation: crackles, no rales, no rhonchi, wheezes and lung sounds not diminished Other: No Bibasilar crackles. no wheezes today Cardio: Jugular venous distension: no JVD GI: Inspection: normal to inspection Skin: General skin exam: normal color Neuro: General: oriented to person, oriented to place and oriented to time Extrem: General: normal to inspection Psych: Appearance: grossly normal Objective Data Vital Signs Vital Signs: Vital Signs - 24 hr 05/29/25 08:35 05/29/25 08:35 05/29/25 08:43 Temperature Pulse Rate 96 96 100 Respiratory Rate 18 18 21 H Blood Pressure Pulse Oximetry 98 Oxygen Delivery Nasal Cannula Oxygen Flow Rate 3 05/29/25 09:17 05/29/25 12:00 05/29/25 13:03 Temperature Pulse Rate 95 94 104 H Respiratory Rate 24 H Blood Pressure 155/88 H Pulse Oximetry 98 Oxygen Delivery Oxygen Flow Rate 05/29/25 13:09 05/29/25 14:00 05/29/25 16:00 Temperature 37.0 C Pulse Rate 107 H 97 99 Respiratory Rate 28 H 16 Blood Pressure 147/77 H Pulse Oximetry 98 Oxygen Delivery Oxygen Flow Rate 05/29/25 20:00 05/29/25 20:00 05/29/25 20:03 Temperature 36.7 C Pulse Rate 97 84 Respiratory Rate 16 Blood Pressure 146/81 H Pulse Oximetry 95 96 Oxygen Delivery Nasal Cannula Oxygen Flow Rate 3 05/29/25 21:03 05/29/25 21:04 05/29/25 21:12 Temperature Pulse Rate 88 91 Respiratory Rate 18 18 Blood Pressure Pulse Oximetry 96 Oxygen Delivery Nasal Cannula Oxygen Flow Rate 3 05/29/25 22:50 05/30/25 00:00 05/30/25 04:00 Temperature Pulse Rate 78 79 Respiratory Rate Blood Pressure Pulse Oximetry 95 Oxygen Delivery Nasal Cannula Oxygen Flow Rate 3 05/30/25 05:03 Temperature 36.8 C Pulse Rate 86 Respiratory Rate 16 Blood Pressure 161/96 H Pulse Oximetry 94 Oxygen Delivery Oxygen Flow Rate Intake/Output Intake/Output: Intake & Output 05/27/25 05/28/25 05/29/25 05/30/25 23:59 23:59 23:59 23:59 Intake Total 50 2260 2502 1100 Output Total 250 500 800 Balance 50 2009 2001 300 Meds/Results Medications: Active Medications Generic Name Dose Route Start Last Admin Trade Name Freq PRN Reason Stop Dose Admin Albuterol 1 puff 05/28/25 09:10 05/28/25 16:23 Albuterol Sulfate (*Sp) Aerosol 1 Puff INHALATION 1 puff QID PRN Administration Shortness Of Breath Or Wheezing Albuterol/Ipratropium 3 ml 05/28/25 02:00 05/30/25 04:20 Ipratropium 0.5 Mg/Albuterol Sulfate 2.5 Mg Ampul.Neb 3 Ml INHALATION Not Given Q6HRT SOHAM Benzonatate 200 mg 05/29/25 13:00 05/29/25 17:02 Benzonatate 100 Mg Capsule PO 200 mg TID SOHAM Administration Budesonide 0.5 mg 05/29/25 10:00 05/29/25 21:01 Budesonide Respule Neb 0.5 Mg/2 Ml Amp INHALATION 0.5 mg Q12HRT SOHAM Administration Emtricitabine/Tenofovir 2 tab 05/28/25 09:00 05/29/25 09:19 Emtricitabine-Tenofovir 100 Mg-150 Mg Tablet PO 2 tab DAILY SOHAM Administration Guaifenesin 1,200 mg 05/28/25 13:30 05/29/25 20:13 Guaifenesin 12 Hr 600 Mg Tabcr PO 1,200 mg Q12HR SOHAM Administration Cefepime HCl 2 gm/ Sodium 50 mls @ 100 mls/hr 05/28/25 10:00 05/30/25 02:03 Chloride IVPB Infused Q8H SOHAM Infusion Vancomycin HCl 1,500 mg in 500 mls @ 250 mls/hr 05/29/25 12:00 05/30/25 00:54 Vancomycin 1,500 Mg/Ns 500 Ml IVPB Infused Q12H SOHAM Infusion Losartan Potassium 25 mg 05/28/25 09:00 05/29/25 09:19 Losartan Potassium 25 Mg Tablet PO 25 mg DAILY SOHAM Administration Darunavir 800 Mg 800 mg 05/28/25 15:50 05/29/25 09:20 Tablet Home Med PO 06/27/25 15:49 800 mg DAILY SOHAM Administration Ritonavir 100 Mg 100 mg 05/28/25 15:50 05/29/25 09:20 Tablet Homemed PO 06/27/25 15:49 100 mg DAILY SOHAM Administration Nystatin 5 ml 05/28/25 09:00 05/29/25 20:13 Nystatin 100,000 Units/Ml Susp 5 Ml Oral.Susp PO 5 ml QID SOHAM Administration Perflutren Lipid Microsphere 0 ml 05/30/25 08:21 Perflutren Lipid Microspheres 1.5 Ml Vial Diluted To 10 Ml Total Volume IV PUSH 06/02/25 08:21 ONCE PRN adequate visualization Protocol Prednisone 40 mg 05/29/25 08:00 05/29/25 09:19 Prednisone 20 Mg Tablet PO 40 mg DAILY@0800 SOHAM Administration Sodium Chloride 2 spray 05/28/25 09:10 05/28/25 10:43 Saline 0.65% James Soln 44 Ml Btl NASAL 2 spray QID PRN Administration Nasal Congestion Radiology Results: ITS Impressions Chest X-Ray 05/27/25 19:52 Impression: 1: Bibasilar airspace disease, compatible with pneumonia. Chest CTA 05/27/25 20:02 IMPRESSION: 1. New bilateral upper lobe masses, largest measuring up to 2.4 cm, concerning for bronchogenic carcinoma. Abnormal hilar lymphadenopathy, suspicious for metastatic disease. 2: Right middle lobe and lingular airspace consolidation, consistent with pneumonia. 3: No large central pulmonary embolism. Evaluation of peripheral pulmonary arteries somewhat limited due to motion artifact and contrast bolus timing. Labs Labs: Laboratory Results - last 24 hr 05/27/25 05/28/25 05/28/25 21:16 09:31 14:26 WBC RBC Hgb Hct MCV MCH MCHC RDW Plt Count MPV Immature Gran % (Auto) Neut % (Auto) Lymph % (Auto) [place] % (Auto) Eos % (Auto) Baso % (Auto) Lymph # (Auto) [place] # (Auto) Eos # (Auto) Baso # (Auto) Abs Immat Gran (auto) Absolute Neuts (auto) Absolute Nucleated RBC Nucleated RBC % Sodium Potassium Chloride Carbon Dioxide Anion Gap BUN Creatinine Estim Creat Clear Calc Estimated GFR Glucose Calcium Total Bilirubin AST ALT Alkaline Phosphatase C-Reactive Protein NT-Pro-B Natriuret Pep Total Protein Albumin Gmqml-6-Gpzsypywwda Procalcitonin Vancomycin Trough Chlamy pneumoniae PCR Not detected Adenovirus (PCR) Not detected B. pertussis DNA (PCR) Not detected B.parapertussis DNA PCR Not detected Coronavirus OC43 (PCR) Not detected Coronavirus HKU1 (PCR) Not detected Coronavirus 229E (PCR) Not detected Coronavirus NL63 (PCR) Not detected Human Metapneumovir PCR Not detected Influenza A (H1) PCR Not detected Influ A (H1/09) PCR Not detected Influenza A (H3) PCR Not detected Influenza Type A (PCR) Not detected Influenza Type B (PCR) Not detected M. pneumoniae (PCR) Not detected Parainfluenza 1 (PCR) Not detected Parainfluenza 2 (PCR) Not detected Parainfluenza 3 (PCR) Not detected Parainfluenza 4 (PCR) Not detected RSV (PCR) Not detected Entero/Rhino (PCR) Not detected SARS-CoV-2 (PCR) Not detected Urine Pneumococcal Ag Cancelled Miscellaneous Test Comment 05/29/25 05/29/25 05/30/25 04:44 09:52 04:56 WBC 11.9 H RBC 3.82 L Hgb 10.0 L Hct 33.1 L MCV 86.6 MCH 26.2 MCHC 30.2 L RDW 16.4 H Plt Count 327 MPV 9.3 Immature Gran % (Auto) 1.3 H Neut % (Auto) 80.0 H Lymph % (Auto) 12.6 L [place] % (Auto) 5.8 Eos % (Auto) 0.0 Baso % (Auto) 0.3 Lymph # (Auto) 1.50 [place] # (Auto) 0.7 H Eos # (Auto) 0.0 Baso # (Auto) 0.0 Abs Immat Gran (auto) 0.16 H Absolute Neuts (auto) 9.5 H Absolute Nucleated RBC 0.000 Nucleated RBC % 0.0 Sodium 135 L Potassium 3.4 Chloride 95 L Carbon Dioxide 39 H Anion Gap 1 L BUN 12 Creatinine 0.41 L Estim Creat Clear Calc 79 Estimated GFR > 60 Glucose 94 Calcium 8.0 L Total Bilirubin < 0.1 L AST 28 ALT 23 Alkaline Phosphatase 62 C-Reactive Protein 3.1 H NT-Pro-B Natriuret Pep 805 H Total Protein 5.8 L Albumin 2.8 L Axswl-0-Fsjxekidewa 188 H Procalcitonin 0.0 Vancomycin Trough < 5.0 L Chlamy pneumoniae PCR Adenovirus (PCR) B. pertussis DNA (PCR) B.parapertussis DNA PCR Coronavirus OC43 (PCR) Coronavirus HKU1 (PCR) Coronavirus 229E (PCR) Coronavirus NL63 (PCR) Human Metapneumovir PCR Influenza A (H1) PCR Influ A (H1/09) PCR Influenza A (H3) PCR Influenza Type A (PCR) Influenza Type B (PCR) M. pneumoniae (PCR) Parainfluenza 1 (PCR) Parainfluenza 2 (PCR) Parainfluenza 3 (PCR) Parainfluenza 4 (PCR) RSV (PCR) Entero/Rhino (PCR) SARS-CoV-2 (PCR) Urine Pneumococcal Ag Miscellaneous Test
[2025-05-30 08:57] LABS: Alveolar/Arterial O2 Gradient 67.6 mmHg; Fractional Inspired Oxygen 28 %; HCO3 ABG 36.1 mEq/l (22.0-26.0); Oxygen Content ABG 15.7 %vol (16.0-22.0); Oxygen Saturation ABG 93.5 % (95.0-100.0); PCO2 ABG 55.1 mmHg (35.0-45.0); PO2 ABG 67.0 mmHg (80.0-100.0); PO2 FiO2 Ratio Arterial Blood 2.39 %
[2025-05-30] MEDS: LOSARTAN POTASSIUM 25 MG TABLET PO (09:00)
[2025-05-30] MEDS: BENZONATATE 100 MG CAPSULE 200 MG PO ×3 (09:00→17:14)
[2025-05-30] MEDS: guaiFENesin 12 HR 600 MG TABCR 1200 MG PO ×2 (09:00→21:11)
[2025-05-30 09:01] LABS: Liters per Minute 2.0 LPM; Modified Allen's Test Pass; Site Drawn RIGHT RADIAL
[2025-05-30] MEDS: SULFAMETHOXAZOLE/TRIMETHOPRIM 800/160 MG DS TABLET 2 TAB PO ×3 (09:01→21:11)
[2025-05-30] MEDS: EMTRICITABINE-TENOFOVIR 100 MG-150 MG TABLET 2 TAB PO (09:01)
[2025-05-30] MEDS: NYSTATIN 100,000 UNITS/ML SUSP 5 ML ORAL.SUSP PO ×4 (09:01→21:14)
[2025-05-30] MEDS: DARUNAVIR 800 MG 800 EACH PO (09:02)
[2025-05-30] MEDS: RITONAVIR 100 MG 100 EACH PO (09:02)
[2025-05-30] MEDS: IPRATROPIUM 0.5 MG/ALBUTEROL SULFATE 2.5 MG AMPUL.NEB 3 ML INHALATION ×2 (09:18→19:56)
[2025-05-30] MEDS: BUDESONIDE RESPULE NEB 0.5 MG/2 ML AMP INHALATION ×2 (09:18→19:56)
--- NOTE | 2025-05-30 10:32 | WPDINFPN2 ---
Progress Note: A&P Assessment and Plan (1) HIV (human immunodeficiency virus infection): Qualifiers: HIV symptom status: unspecified Qualified Code(s): Z21 - Asymptomatic human immunodeficiency virus [HIV] infection status Code(s): B20 - Human immunodeficiency virus [HIV] disease Status: Acute (2) Community acquired pneumonia: Qualifiers: Laterality: unspecified laterality Qualified Code(s): J18.9 - Pneumonia, unspecified organism Code(s): J18.9 - Pneumonia, unspecified organism Status: Acute (3) Acute on chronic respiratory failure with hypoxia and hypercapnia: Code(s): J96.21 - Acute and chronic respiratory failure with hypoxia; J96.22 - Acute and chronic respiratory failure with hypercapnia Status: Acute (4) COPD with acute lower respiratory infection: Code(s): J44.0 - Chronic obstructive pulmonary disease with (acute) lower respiratory infection Status: Acute (5) Lung mass: Code(s): R91.8 - Other nonspecific abnormal finding of lung field Status: Acute (6) Chronic steroid use: Status: Acute Plan # HIV with CD4 count 1 year ago 176 ( 23%) but now decreased to 56. Recent viral load less than 300 while on Truvada and darunavir / ritonavir but repeat pending. -- patient claims compliance with antiretrovirals. # Acute on chronic hypoxic / hypercapnic respiratory failure in the setting of chronic COPD requiring home O2 of 2 L. -- consider exacerbation COPD. -- chest x-ray and CT evidence of acute pneumonia which may be recurrent after recent treatment for same. -- also with bilateral upper lobe masses and lymphadenopathy and may be suggestive of metastatic malignancy. Long history of tobacco use. -- at risk for HIV-associated opportunistic infection with current CD4 count 56. # Leukocytosis. -- increased but receiving prednisone. Improved. Plan: -- Await viral load and will also obtain genotype analysis. -- await expectorated sputum for routine Gram stain and culture, fungal culture, cytopathology, and special stains for PJP. -- await urine for Legionella, pneumococcus, blastomycosis, and histo antigens. -- may need bronchoscopy as workup for possible malignancy and opportunistic infection. Pulmonary input noted and appreciated. -- will begin empiric PJP coverage with Bactrim double strength p.o. 2 tablets q.8 hours. Patient already receiving prednisone. -- for now, continue cefepime. With the addition of Bactrim will discontinue vancomycin. Has completed azithromycin. -- she will eventually need outpatient bronchoscopy scheduled to further evaluate upper lobe masses which may involve malignancy. -- further recommendations to follow. Patient was seen via video telehealth consultation with the assistance of staff. Chart, data, and patient independently reviewed. Patient was located at [facility] while I was located in my [place] office. Received verbal consent from patient. Subjective Date/time seen: 05/30/25 10:32 Interval history: 05/29/2025: Afebrile. Vital signs stable. Some increase in dry cough. Appreciate Pulmonary input. They point out, however, specific bronchoscopy to assess upper lobe masses could not be performed at this institution. 05/30/2025: Increasing shortness of breath today. CD4 count now down to 56. Review of Systems Review of Systems: Notes baseline cough with some recent worsening. Cough is dry. Increased shortness of breath. All systems reviewed & are unremarkable except as noted in HPI and below Exam Narrative: Awake, alert, and interactive. No distress But with increased shortness of breath today. Normocephalic. No conjunctivitis. No respiratory distress with increased shortness of breath. Occasional cough. Abdomen not significantly distended. No rash. Objective Data Vital Signs Vital Signs: Vital Signs - 24 hr 05/29/25 12:00 05/29/25 13:03 05/29/25 13:09 Temperature Pulse Rate 94 104 H 107 H Respiratory Rate 24 H 28 H Blood Pressure Pulse Oximetry Oxygen Delivery Oxygen Flow Rate 05/29/25 14:00 05/29/25 16:00 05/29/25 20:00 Temperature 98.6 F Pulse Rate 97 99 Respiratory Rate 16 Blood Pressure 147/77 H Pulse Oximetry 98 95 Oxygen Delivery Nasal Cannula Oxygen Flow Rate 3 05/29/25 20:00 05/29/25 20:03 05/29/25 21:03 Temperature 98.0 F Pulse Rate 97 84 Respiratory Rate 16 Blood Pressure 146/81 H Pulse Oximetry 96 96 Oxygen Delivery Nasal Cannula Oxygen Flow Rate 3 05/29/25 21:04 05/29/25 21:12 05/29/25 22:50 Temperature Pulse Rate 88 91 Respiratory Rate 18 18 Blood Pressure Pulse Oximetry 95 Oxygen Delivery Nasal Cannula Oxygen Flow Rate 3 05/30/25 00:00 05/30/25 04:00 05/30/25 05:03 Temperature 98.3 F Pulse Rate 78 79 86 Respiratory Rate 16 Blood Pressure 161/96 H Pulse Oximetry 94 Oxygen Delivery Oxygen Flow Rate 05/30/25 08:00 05/30/25 09:18 05/30/25 09:19 Temperature Pulse Rate 89 Respiratory Rate 18 Blood Pressure Pulse Oximetry 94 94 Oxygen Delivery Nasal Cannula Nasal Cannula Oxygen Flow Rate 3 3 Intake/Output Intake/Output: Intake & Output 05/27/25 05/28/25 05/29/25 05/30/25 23:59 23:59 23:59 23:59 Intake Total 50 2260 2502 1340 Output Total 250 500 800 Balance 50 2009 2001 540 Meds/Results Medications: Active Medications Generic Name Dose Route Start Last Admin Trade Name Freq PRN Reason Stop Dose Admin Albuterol 1 puff 05/28/25 09:10 05/28/25 16:23 Albuterol Sulfate (*Sp) Aerosol 1 Puff INHALATION 1 puff QID PRN Administration Shortness Of Breath Or Wheezing Albuterol/Ipratropium 3 ml 05/28/25 02:00 05/30/25 09:18 Ipratropium 0.5 Mg/Albuterol Sulfate 2.5 Mg Ampul.Neb 3 Ml INHALATION 3 ml Q6HRT SOHAM Administration Benzonatate 200 mg 05/29/25 13:00 05/30/25 09:00 Benzonatate 100 Mg Capsule PO 200 mg TID SOHAM Administration Budesonide 0.5 mg 05/29/25 10:00 05/30/25 09:18 Budesonide Respule Neb 0.5 Mg/2 Ml Amp INHALATION 0.5 mg Q12HRT SOHAM Administration Emtricitabine/Tenofovir 2 tab 05/28/25 09:00 05/30/25 09:01 Emtricitabine-Tenofovir 100 Mg-150 Mg Tablet PO 2 tab DAILY SOHAM Administration Guaifenesin 1,200 mg 05/28/25 13:30 05/30/25 09:00 Guaifenesin 12 Hr 600 Mg Tabcr PO 1,200 mg Q12HR SOHAM Administration Cefepime HCl 2 gm/ Sodium 50 mls @ 100 mls/hr 05/28/25 10:00 05/30/25 09:02 Chloride IVPB 100 mls/hr Q8H SOHAM Administration Losartan Potassium 25 mg 05/28/25 09:00 05/30/25 09:00 Losartan Potassium 25 Mg Tablet PO 25 mg DAILY SOHAM Administration Darunavir 800 Mg 800 mg 05/28/25 15:50 05/30/25 09:02 Tablet Home Med PO 06/27/25 15:49 800 mg DAILY SOHAM Administration Ritonavir 100 Mg 100 mg 05/28/25 15:50 05/30/25 09:02 Tablet Homemed PO 06/27/25 15:49 100 mg DAILY SOHAM Administration Nystatin 5 ml 05/28/25 09:00 05/30/25 09:01 Nystatin 100,000 Units/Ml Susp 5 Ml Oral.Susp PO 5 ml QID SOHAM Administration Perflutren Lipid Microsphere 0 ml 05/30/25 08:21 Perflutren Lipid Microspheres 1.5 Ml Vial Diluted To 10 Ml Total Volume IV PUSH 06/02/25 08:21 ONCE PRN adequate visualization Protocol Prednisone 40 mg 05/29/25 08:00 05/30/25 09:00 Prednisone 20 Mg Tablet PO 40 mg DAILY@0800 SOHAM Administration Sodium Chloride 2 spray 05/28/25 09:10 05/28/25 10:43 Saline 0.65% James Soln 44 Ml Btl NASAL 2 spray QID PRN Administration Nasal Congestion Trimethoprim/Sulfamethoxazole 2 tab 05/30/25 09:00 05/30/25 09:01 Sulfamethoxazole/Trimethoprim 800/160 Mg Ds Tablet PO 2 tab Q8HR SOHAM Administration Radiology Results: ITS Impressions Chest CTA 05/27/25 20:02 IMPRESSION: 1. New bilateral upper lobe masses, largest measuring up to 2.4 cm, concerning for bronchogenic carcinoma. Abnormal hilar lymphadenopathy, suspicious for metastatic disease. 2: Right middle lobe and lingular airspace consolidation, consistent with pneumonia. 3: No large central pulmonary embolism. Evaluation of peripheral pulmonary arteries somewhat limited due to motion artifact and contrast bolus timing. Chest X-Ray 05/30/25 09:10 Impression: Compared to the prior study probable pneumonic process appears slightly improved, there is a new small right pleural effusion. Labs Labs: Laboratory Results - last 24 hr 05/27/25 05/28/25 05/28/25 21:16 09:31 14:26 WBC RBC Hgb Hct MCV MCH MCHC RDW Plt Count MPV Immature Gran % (Auto) Neut % (Auto) Lymph % (Auto) [place] % (Auto) Eos % (Auto) Baso % (Auto) Lymph # (Auto) [place] # (Auto) Eos # (Auto) Baso # (Auto) Abs Immat Gran (auto) Absolute Neuts (auto) Absolute Nucleated RBC Nucleated RBC % Puncture Site ABG pH ABG pCO2 ABG pO2 ABG PO2/FiO2 Ratio ABG HCO3 ABG O2 Saturation ABG O2 Content ABG Base Excess A-a Gradient Oxyhemoglobin Total Hemoglobin O2 Delivery Device O2 Liters/Min FiO2 Sodium Potassium Chloride Carbon Dioxide Anion Gap BUN Creatinine Estim Creat Clear Calc Estimated GFR Glucose Calcium Total Bilirubin AST ALT Alkaline Phosphatase C-Reactive Protein NT-Pro-B Natriuret Pep Total Protein Albumin Mxncn-6-Qmymkjabrfo Procalcitonin Vancomycin Trough Chlamy pneumoniae PCR Not detected Adenovirus (PCR) Not detected B. pertussis DNA (PCR) Not detected B.parapertussis DNA PCR Not detected Coronavirus OC43 (PCR) Not detected Coronavirus HKU1 (PCR) Not detected Coronavirus 229E (PCR) Not detected Coronavirus NL63 (PCR) Not detected Human Metapneumovir PCR Not detected Influenza A (H1) PCR Not detected Influ A (H1/09) PCR Not detected Influenza A (H3) PCR Not detected Influenza Type A (PCR) Not detected Influenza Type B (PCR) Not detected M. pneumoniae (PCR) Not detected Parainfluenza 1 (PCR) Not detected Parainfluenza 2 (PCR) Not detected Parainfluenza 3 (PCR) Not detected Parainfluenza 4 (PCR) Not detected RSV (PCR) Not detected Entero/Rhino (PCR) Not detected SARS-CoV-2 (PCR) Not detected Urine Pneumococcal Ag Cancelled Miscellaneous Test Comment 05/29/25 05/29/25 05/30/25 04:44 09:52 04:56 WBC 11.9 H RBC 3.82 L Hgb 10.0 L Hct 33.1 L MCV 86.6 MCH 26.2 MCHC 30.2 L RDW 16.4 H Plt Count 327 MPV 9.3 Immature Gran % (Auto) 1.3 H Neut % (Auto) 80.0 H Lymph % (Auto) 12.6 L [place] % (Auto) 5.8 Eos % (Auto) 0.0 Baso % (Auto) 0.3 Lymph # (Auto) 1.50 [place] # (Auto) 0.7 H Eos # (Auto) 0.0 Baso # (Auto) 0.0 Abs Immat Gran (auto) 0.16 H Absolute Neuts (auto) 9.5 H Absolute Nucleated RBC 0.000 Nucleated RBC % 0.0 Puncture Site ABG pH ABG pCO2 ABG pO2 ABG PO2/FiO2 Ratio ABG HCO3 ABG O2 Saturation ABG O2 Content ABG Base Excess A-a Gradient Oxyhemoglobin Total Hemoglobin O2 Delivery Device O2 Liters/Min FiO2 Sodium 135 L Potassium 3.4 Chloride 95 L Carbon Dioxide 39 H Anion Gap 1 L BUN 12 Creatinine 0.41 L Estim Creat Clear Calc 79 Estimated GFR > 60 Glucose 94 Calcium 8.0 L Total Bilirubin < 0.1 L AST 28 ALT 23 Alkaline Phosphatase 62 C-Reactive Protein 3.1 H NT-Pro-B Natriuret Pep 805 H Total Protein 5.8 L Albumin 2.8 L Lvqsk-1-Eqrbpfoksww 188 H Procalcitonin 0.0 Vancomycin Trough < 5.0 L Chlamy pneumoniae PCR Adenovirus (PCR) B. pertussis DNA (PCR) B.parapertussis DNA PCR Coronavirus OC43 (PCR) Coronavirus HKU1 (PCR) Coronavirus 229E (PCR) Coronavirus NL63 (PCR) Human Metapneumovir PCR Influenza A (H1) PCR Influ A (H1/09) PCR Influenza A (H3) PCR Influenza Type A (PCR) Influenza Type B (PCR) M. pneumoniae (PCR) Parainfluenza 1 (PCR) Parainfluenza 2 (PCR) Parainfluenza 3 (PCR) Parainfluenza 4 (PCR) RSV (PCR) Entero/Rhino (PCR) SARS-CoV-2 (PCR) Urine Pneumococcal Ag Miscellaneous Test 05/30/25 08:45 WBC RBC Hgb Hct MCV MCH MCHC RDW Plt Count MPV Immature Gran % (Auto) Neut % (Auto) Lymph % (Auto) [place] % (Auto) Eos % (Auto) Baso % (Auto) Lymph # (Auto) [place] # (Auto) Eos # (Auto) Baso # (Auto) Abs Immat Gran (auto) Absolute Neuts (auto) Absolute Nucleated RBC Nucleated RBC % Puncture Site Right radial ABG pH 7.434 ABG pCO2 55.1 H ABG pO2 67.0 L ABG PO2/FiO2 Ratio 2.39 ABG HCO3 36.1 H ABG O2 Saturation 93.5 L ABG O2 Content 15.7 L ABG Base Excess 10.1 A-a Gradient 67.6 Oxyhemoglobin 92.8 Total Hemoglobin 12.0 O2 Delivery Device Nasal cannula O2 Liters/Min 2.0 FiO2 28 Sodium Potassium Chloride Carbon Dioxide Anion Gap BUN Creatinine Estim Creat Clear Calc Estimated GFR Glucose Calcium Total Bilirubin AST ALT Alkaline Phosphatase C-Reactive Protein NT-Pro-B Natriuret Pep Total Protein Albumin Sgvbu-6-Aocyoodmynw Procalcitonin Vancomycin Trough Chlamy pneumoniae PCR Adenovirus (PCR) B. pertussis DNA (PCR) B.parapertussis DNA PCR Coronavirus OC43 (PCR) Coronavirus HKU1 (PCR) Coronavirus 229E (PCR) Coronavirus NL63 (PCR) Human Metapneumovir PCR Influenza A (H1) PCR Influ A (H1/09) PCR Influenza A (H3) PCR Influenza Type A (PCR) Influenza Type B (PCR) M. pneumoniae (PCR) Parainfluenza 1 (PCR) Parainfluenza 2 (PCR) Parainfluenza 3 (PCR) Parainfluenza 4 (PCR) RSV (PCR) Entero/Rhino (PCR) SARS-CoV-2 (PCR) Urine Pneumococcal Ag Miscellaneous Test
--- NOTE | 2025-05-30 10:47 | PCNFU ---
Nutrition Follow-Up Complete: Moderate protein calorie malnutrition related to chronic COPD as evidenced by moderate fat loss and severe muscle wasting Goal: Adequate PO intake >75% Patient is progressing towards goal. We will continue current goal. Pt current nutrition is Regular with diet supplements. Last recorded weight is 44 kg Bowel Motility: Last reported BM 05/29 Labs Reviewed: Na 135, Cr 0.41, Hct 33.1, Hgb 10.1 Meds Noted: Mucinex Skin: WNL Additional Notes: Patient remains on a regular diet. Calorie count ordered on 05/28-no data to collect for 05/28. On 05/29 reporting breakfast aprox. 180 kcal, Lunch aprox. 645 kcal, no dinner receipt to calculate. 05/30 breakfast aprox. 400 kcal. Spoke with Hospitalist today. MD orders to discontinue calorie count. Will continue with a regular diet and diet supplements which are providing an additional 350 kcal and 20 gm protein. Agree with diet order. Monitoring intakes, weights, labs, supplement tolerance, plan of care Follow up in 5 days
--- NOTE | 2025-05-30 11:08 | PCPTNOTE ---
Attempted PT evaluation, pt refused stating she has had too many tests this morning. Pt requested therapist return at later time. Will follow. Nursing aware.
[2025-05-31] VITALS (19 sets, daily range): BP systolic 133–155; BP diastolic 52–83; PULSE 74–96; RESP 16–20; TEMP 36.3–36.6; O2SAT 93–97
[2025-05-31] MEDS: CEFEPIME 2 GM in SODIUM CHLORIDE 0.9% IV 50 ML 100 ML IVPB ×3 (01:20→17:24)
[2025-05-31] MEDS: IPRATROPIUM 0.5 MG/ALBUTEROL SULFATE 2.5 MG AMPUL.NEB 3 ML INHALATION ×4 (01:54→20:36)
[2025-05-31] MEDS: SULFAMETHOXAZOLE/TRIMETHOPRIM 800/160 MG DS TABLET 2 TAB PO ×3 (05:24→20:51)
[2025-05-31 05:26] LABS: Hematocrit 35.0 % (37.0-47.0); Hemoglobin 10.9 g/dL (12.0-15.0); Immature Granulocyte Percent A 3.2 % (0-0.5); Lymphocytes Absolute Auto 1.99 K/mm3 (0.9-3.2); Mean Corpuscular HGB Conc 31.1 g/dl (32-36); Mean Corpuscular Hemoglobin 26.1 pg (26-34); Mean Corpuscular Volume 83.9 fl (80-100); Nucleated Red Blood Cells Absolute Auto 0.000 K/mm3 (0.0-0.012); Nucleated Red Blood Cells Perc 0.0 % (0.0-0.2); Platelet Count Result 332 k/mm3 (150-375); Red Blood Count 4.17 M/mm3 (4.2-5.4); White Blood Count 10.0 K/mm3 (4.5-10.0)
[2025-05-31 05:42] LABS: Alanine Aminotransferase 22 U/L (6-35); Albumin Level 3.1 g/dL (3.5-5.1); Alkaline Phosphatase 66 U/L (38-126); Anion Gap 3 mmol/L (4-12); Aspartate Amino Transferase 29 U/L (14-36); Bilirubin,Total < 0.1 mg/dL (0.2-1.3); Blood Urea Nitrogen 13 mg/dL (7-17); Calcium 8.1 mg/dL (8.4-10.2); Carbon Dioxide 35 mmol/L (22-30); Chloride 93 mmol/L (98-107); Estimated CRCL calculation 66 ml/min; Estimated Glomerular Filt Rate > 60; Glucose 89 mg/dL (65-110); Potassium 3.7 mmol/L (3.4-5.0); Sodium 131 mmol/L (137-145); Total Protein 6.1 g/dL (6.3-8.2)
--- NOTE | 2025-05-31 07:00 | P.PNIM_ITS ---
Progress Note: A&P Assessment and Plan (1) Sepsis: Qualifiers: Acute respiratory failure type: unspecified Sepsis acute organ dysfunction status: with acute organ dysfunction Sepsis type: sepsis due to unspecified organism Severe sepsis acute organ dysfunction type: acute respiratory failure Severe sepsis shock status: without septic shock Qualified Code(s): A41.9 - Sepsis, unspecified organism; R65.20 - Severe sepsis without septic shock; J96.00 - Acute respiratory failure, unspecified whether with hypoxia or hypercapnia Code(s): A41.9 - Sepsis, unspecified organism Status: Acute Assessment and Plan: * sepsis present on admission evidenced by tachycardia, tachypnea, increased hypoxia, leukocytosis * LA WNL, BP stable * received 1L NS in ED * source: pneumonia, continue management as below * WBC trending up likely due to steroids. Clinically improving. * follow-up blood cultures - NGTD * WBC down trending, 15.5 -> 11.9 -> 10.0 * Remains afebrile (2) Community acquired pneumonia: Qualifiers: Laterality: unspecified laterality Qualified Code(s): J18.9 - Pne umonia, unspecified organism Code(s): J18.9 - Pneumonia, unspecified organism Status: Acute Assessment and Plan: * recent admission 04/2025 for pneumonia, treated with Rocephin and azithromycin, discharged on Levaquin * CTA chest with RML and lingular airspace consolidation consistent with pneumonia * MRSA DNA positive * blood cultures NGTD * sputum culture, legionella, strep, blastomycosis and histo antigens and mycoplasma antibodies pending * infectious disease consulted in light of history of HIV and recurrent pneumonia, recommended to continue cefepime, vanc and azithromycin. * CD4 count 56 * awaiting viral load. Genotype analysis sent * * Pulmonology following * Repeat CXR: Compared to the prior study probable pneumonic process appears slightly improved, there is a new small right pleural effusion * Repeat Echo: EF 45-50, mildly enlarged LV dimension, G1DD, Mild AVR/TVR, moderate MVR * Pending urine Legionella, pneumococcal, mycoplasma IgM, sputum for fungus and sputum for PJP * Has completed azithromycin, added bactrim and d/cd Vanc, continue Cefepime (3) COPD with acute lower respiratory infection: Code(s): J44.0 - Chronic obstructive pulmonary disease with (acute) lower respiratory infection Status: Acute Assessment and Plan: * no wheezing this AM. Improving cough * Pulm following * decreased the prednisone to 10 mg p.o. q.day, continue DuoNebs q.6, budesonide nebs b.i.d., guaifenesin 1200 p.o. b.i.d. and Tessalon Perles 200 t.i.d. (4) Acute on chronic respiratory failure with hypoxia and hypercapnia: Code(s): J96.21 - Acute and chronic respiratory failure with hypoxia; J96.22 - Acute and chronic respiratory failure with hypercapnia Status: Acute Assessment and Plan: * on 2-3L NC O2 baseline * ABG with pH 7.38, pCO2 60.4, pO2 50.5. pCO2 higher than baseline, but work of breathing improved so BiPAP was deferred. * required up to 5L in ED, now back to baseline 3L * monitor O2 sat (5) Lung mass: Code(s): R91.8 - Other nonspecific abnormal finding of lung field Status: Acute Assessment and Plan: * CTA chest with new bilateral upper lobe masses, largest 2.4 cm concerning for bronchogenic carcinoma * pulmonology consulted, will need outpatient bronchoscopy with EUS at tertiary center likely as outpatient (6) HIV (human immunodeficiency virus infection): Qualifiers: HIV symptom status: unspecified Qualified Code(s): Z21 - Asymptomatic human immunodeficiency virus [HIV] infection status Code(s): B20 - Human immunodeficiency virus [HIV] disease Status: Acute Assessment and Plan: * managed on darunavir, ritonavir, and Truvada - continue * CD4 count 176 04/2024 - patient was off medication at this time. Reports she restarted ART 2 months ago. * viral load pending * CD4 count 56 * ID following * Begin empiric PJP coverage with Bactrim double-strength p.o. 2 tablets q.8 hours * Pending expectorated sputum for routine Gram stain and culture, fungal culture, cytopathology and special stains for PJP * Await viral load and obtain genotype analysis * Now on empiric PJP coverage with Bactrim DS (7) Chronic steroid use: Status: Acute Assessment and Plan: * on prednisone 10mg daily Subjective Date/time seen: 05/31/25 07:00 Interval history: 65-year-old female with a past medical history of COPD with chronic hypoxic respiratory failure on home O2 of 2 L, chronic prednisone therapy of 10 mg daily, HIV and essential hypertension who presented to the ER from home via EMS due to increased shortness of breath. 05/31/2025 Patient sitting comfortably in bed at time of examination. Denies any chest pain, N/V, abd pain at this time. Still has some shortness of breath - pulm has decreased her O2 supp to 1L, pt endorsing some increase work of breathing. Remains afebrile, leukocytosis has resolved. Prednisone decreased to 10mg. Urine pneumococcal, sputum for fungus, sputum for PJP, mycoplasma IgM urine histo all pending Review of Systems Review of Systems: 12 systems were reviewed with pertinent positives and negatives per HPI. Except as documented in the HPI, all other systems were reviewed and are negative. All systems reviewed & are unremarkable except as noted in HPI and below Exam Narrative: General: NAD, chronically ill-appearing Eyes: EOMI ENT: neck supple Cardiovascular: Regular rate and rhythm Respiratory: + rhonchi of RLL, respirations even and unlabored on 3L NC Gastrointestinal: Soft, non tender Genitourinary: no suprapubic tenderness Musculoskeletal: No edema Skin: warm, dry Neuro: Alert. Psych: Mood appropriate Const: Other: Appears older than stated age, cachectic, acutely ill-appearing, sitting up in bed with head of bed at almost 90? HENMT: Other: Head is normocephalic atraumatic, eyes are some what sunken, mucous membranes are moist, no oral pharyngeal erythema Eyes: Other: Pupils are equal and reactive, bilateral cataracts noted Neck: Other: No lymphadenopathy, no JVD Resp: Other: Conversational tachypnea, accessory muscle use, abdominal respirations speaking in 3-4 word sentences, end-expiratory wheezing bilateral anterior waddell Cardio: Other: Mildly tachycardic, 2+ bilateral radial pedal pulses, no murmur GI: Other: Firm, nontender, normoactive bowel sounds Skin: Other: Generalized pallor, non jaundice, 3-4 second cap refill, no mottling Neuro: Other: Alert oriented x4, speech is clear, no facial asymmetry, no localizing neuro logic deficits noted during the course of conversation Extrem: Other: No cyanosis, no edema, moves all extremities equally, generalized muscle wasting Psych: Other: Appropriate mood and affect, pleasant and cooperative, judgment and insight intact Objective Data Vital Signs Vital Signs: Vital Signs - 24 hr 05/30/25 08:00 05/30/25 08:00 05/30/25 09:18 Temperature Pulse Rate 94 89 Respiratory Rate 18 Blood Pressure Pulse Oximetry 94 Oxygen Delivery Nasal Cannula Oxygen Flow Rate 3 05/30/25 09:19 05/30/25 12:00 05/30/25 14:00 Temperature 97.6 F Pulse Rate 85 91 Respiratory Rate 18 Blood Pressure 147/86 H Pulse Oximetry 94 93 Oxygen Delivery Nasal Cannula Oxygen Flow Rate 3 05/30/25 16:00 05/30/25 19:56 05/30/25 19:56 Temperature Pulse Rate 92 87 87 Respiratory Rate 18 18 Blood Pressure Pulse Oximetry 90 Oxygen Delivery Nasal Cannula Oxygen Flow Rate 3 05/30/25 20:00 05/30/25 20:00 05/30/25 20:10 Temperature Pulse Rate 90 97 Respiratory Rate 20 Blood Pressure Pulse Oximetry 94 Oxygen Delivery Nasal Cannula Oxygen Flow Rate 3 05/30/25 20:46 05/30/25 23:06 05/31/25 00:00 Temperature 98.1 F Pulse Rate 85 94 83 Respiratory Rate 18 Blood Pressure 146/84 H Pulse Oximetry 94 91 Oxygen Delivery Nasal Cannula Oxygen Flow Rate 3 05/31/25 01:54 05/31/25 01:54 05/31/25 02:05 Temperature Pulse Rate 82 82 86 Respiratory Rate 20 20 20 Blood Pressure Pulse Oximetry 94 Oxygen Delivery Nasal Cannula Oxygen Flow Rate 4 05/31/25 04:00 05/31/25 04:57 Temperature 97.8 F Pulse Rate 74 78 Respiratory Rate 17 Blood Pressure 155/52 H Pulse Oximetry 97 Oxygen Delivery Oxygen Flow Rate Intake/Output Intake/Output: Intake & Output 05/28/25 05/29/25 05/30/25 05/31/25 23:59 23:59 23:59 23:59 Intake Total 2260 2502 1920 850 Output Total 543 842 2931 800 Balance 2009 2001 -480 50 Meds/Results Medications: Active Medications Generic Name Dose Route Start Last Admin Trade Name Freq PRN Reason Stop Dose Admin Albuterol 1 puff 05/28/25 09:10 05/28/25 16:23 Albuterol Sulfate (*Sp) Aerosol 1 Puff INHALATION 1 puff QID PRN Administration Shortness Of Breath Or Wheezing Albuterol/Ipratropium 3 ml 05/28/25 02:00 05/31/25 01:54 Ipratropium 0.5 Mg/Albuterol Sulfate 2.5 Mg Ampul.Neb 3 Ml INHALATION 3 ml Q6HRT SOHAM Administration Benzonatate 200 mg 05/29/25 13:00 05/30/25 17:14 Benzonatate 100 Mg Capsule PO 200 mg TID SOHAM Administration Budesonide 0.5 mg 05/29/25 10:00 05/30/25 19:56 Budesonide Respule Neb 0.5 Mg/2 Ml Amp INHALATION 0.5 mg Q12HRT SOHAM Administration Emtricitabine/Tenofovir 2 tab 05/28/25 09:00 05/30/25 09:01 Emtricitabine-Tenofovir 100 Mg-150 Mg Tablet PO 2 tab DAILY SOHAM Administration Enoxaparin Sodium 40 mg 05/31/25 09:00 Enoxaparin 40 Mg/0.4 Ml Syringe SUB-Q DAILY SOHAM Guaifenesin 1,200 mg 05/28/25 13:30 05/30/25 21:11 Guaifenesin 12 Hr 600 Mg Tabcr PO 1,200 mg Q12HR SOHAM Administration Cefepime HCl 2 gm/ Sodium 50 mls @ 100 mls/hr 05/28/25 10:00 05/31/25 01:50 Chloride IVPB Infused Q8H SOHAM Infusion Losartan Potassium 25 mg 05/28/25 09:00 05/30/25 09:00 Losartan Potassium 25 Mg Tablet PO 25 mg DAILY SOHAM Administration Darunavir 800 Mg 800 mg 05/28/25 15:50 05/30/25 09:02 Tablet Home Med PO 06/27/25 15:49 800 mg DAILY SOHAM Administration Ritonavir 100 Mg 100 mg 05/28/25 15:50 05/30/25 09:02 Tablet Homemed PO 06/27/25 15:49 100 mg DAILY SOHAM Administration Nystatin 5 ml 05/28/25 09:00 05/30/25 21:14 Nystatin 100,000 Units/Ml Susp 5 Ml Oral.Susp PO 5 ml QID SOHAM Administration Perflutren Lipid Microsphere 0 ml 05/30/25 08:21 Perflutren Lipid Microspheres 1.5 Ml Vial Diluted To 10 Ml Total Volume IV PUSH 06/02/25 08:21 ONCE PRN adequate visualization Protocol Prednisone 40 mg 05/29/25 08:00 05/30/25 09:00 Prednisone 20 Mg Tablet PO 40 mg DAILY@0800 SOHAM Administration Sodium Chloride 2 spray 05/28/25 09:10 05/28/25 10:43 Saline 0.65% James Soln 44 Ml Btl NASAL 2 spray QID PRN Administration Nasal Congestion Trimethoprim/Sulfamethoxazole 2 tab 05/30/25 09:00 05/31/25 05:24 Sulfamethoxazole/Trimethoprim 800/160 Mg Ds Tablet PO 2 tab Q8HR SOHAM Administration Radiology Results: ITS Impressions Chest CTA 05/27/25 20:02 IMPRESSION: 1. New bilateral upper lobe masses, largest measuring up to 2.4 cm, concerning for bronchogenic carcinoma. Abnormal hilar lymphadenopathy, suspicious for metastatic disease. 2: Right middle lobe and lingular airspace consolidation, consistent with pneumonia. 3: No large central pulmonary embolism. Evaluation of peripheral pulmonary arteries somewhat limited due to motion artifact and contrast bolus timing. Chest X-Ray 05/30/25 09:10 Impression: Compared to the prior study probable pneumonic process appears slightly improved, there is a new small right pleural effusion. Labs Labs: Laboratory Results - last 24 hr 05/27/25 05/29/25 05/30/25 21:40 04:44 04:56 WBC RBC Hgb Hct MCV MCH MCHC RDW Plt Count MPV Immature Gran % (Auto) Neut % (Auto) Lymph % (Auto) [place] % (Auto) Eos % (Auto) Baso % (Auto) Lymph # (Auto) [place] # (Auto) Eos # (Auto) Baso # (Auto) Abs Immat Gran (auto) Absolute Neuts (auto) Absolute Nucleated RBC Nucleated RBC % Puncture Site ABG pH ABG pCO2 ABG pO2 ABG PO2/FiO2 Ratio ABG HCO3 ABG O2 Saturation ABG O2 Content ABG Base Excess A-a Gradient Oxyhemoglobin Total Hemoglobin O2 Delivery Device O2 Liters/Min FiO2 Sodium Potassium Chloride Carbon Dioxide Anion Gap BUN Creatinine Estim Creat Clear Calc Estimated GFR Glucose Calcium Total Bilirubin AST ALT Alkaline Phosphatase C-Reactive Protein 3.1 H NT-Pro-B Natriuret Pep 805 H Total Protein Albumin [id number] 188 H Procalcitonin 0.0 HIV-1 RNA (PCR) 90 HIV-1 RNA (PCR) log10 1.954 M.pneumoniae IgM Titer <770 Urine Pneumococcal Ag 05/30/25 05/30/25 05/31/25 08:45 12:42 04:47 WBC 10.0 RBC 4.17 L Hgb 10.9 L Hct 35.0 L MCV 83.9 MCH 26.1 MCHC 31.1 L RDW 16.2 H Plt Count 332 MPV 9.1 Immature Gran % (Auto) 3.2 H Neut % (Auto) 70.7 Lymph % (Auto) 19.8 [place] % (Auto) 5.7 Eos % (Auto) 0.2 Baso % (Auto) 0.4 Lymph # (Auto) 1.99 [place] # (Auto) 0.6 Eos # (Auto) 0.0 Baso # (Auto) 0.0 Abs Immat Gran (auto) 0.32 H Absolute Neuts (auto) 7.1 H Absolute Nucleated RBC 0.000 Nucleated RBC % 0.0 Puncture Site Right radial ABG pH 7.434 ABG pCO2 55.1 H ABG pO2 67.0 L ABG PO2/FiO2 Ratio 2.39 ABG HCO3 36.1 H ABG O2 Saturation 93.5 L ABG O2 Content 15.7 L ABG Base Excess 10.1 A-a Gradient 67.6 Oxyhemoglobin 92.8 Total Hemoglobin 12.0 O2 Delivery Device Nasal cannula O2 Liters/Min 2.0 FiO2 28 Sodium 131 L Potassium 3.7 Chloride 93 L Carbon Dioxide 35 H Anion Gap 3 L BUN 13 Creatinine 0.52 L Estim Creat Clear Calc 66 Estimated GFR > 60 Glucose 89 Calcium 8.1 L Total Bilirubin < 0.1 L AST 29 ALT 22 Alkaline Phosphatase 66 C-Reactive Protein NT-Pro-B Natriuret Pep Total Protein 6.1 L Albumin 3.1 L [id number] Procalcitonin HIV-1 RNA (PCR) HIV-1 RNA (PCR) log10 M.pneumoniae IgM Titer Urine Pneumococcal Ag Cancelled Quality VTE Prophylaxis VTE prophylaxis: pharmacologic ordered
[2025-05-31] MEDS: BUDESONIDE RESPULE NEB 0.5 MG/2 ML AMP INHALATION ×2 (08:17→20:36)
[2025-05-31] MEDS: ONDANSETRON HCL ODT 4 MG TABLET PO (09:07)
--- NOTE | 2025-05-31 09:30 | PCPTNOTE ---
Attempted PT evaluation. Pt refused stating she was too nauseated to participate. Per nursing, [facility]. Therapy orders discontinued due to pt refusing 3 days now.
--- NOTE | 2025-05-31 09:33 | PM.PNPUL ---
Progress Note: A&P Assessment and Plan (1) Community acquired pneumonia: Qualifiers: Laterality: unspecified laterality Qualified Code(s): J18.9 - Pneumonia, unspecified organism Code(s): J18.9 - Pneumonia, unspecified organism Status: Acute Assessment and Plan: Patient with a history of COPD and severe apical predominant panlobular emphysema, HIV positive, treated for pneumonia ceftriaxone and azithromycin in the hospital from 04/12 to 04/16 and discharged on Augmentin. She did improved back to her baseline. Currently she has 7 days of shortness of breath, change in her phlegm, right-sided pleuritic chest pain, worsening cough and shortness of breath with a leukocytosis at 12.[address] angiogram of the chest that shows infiltrates and consolidation in the right middle lobe and lingula. She has MRSA swab positive, COVID, influenza, RSV RT PCR assay negative. 05/28/25 Plan: Patient was changed to vancomycin, cefepime and azithromycin was continued. She is feeling better today and says that her pleuritic pain is now resolved, her phlegm is gone from green to yellow, she is afebrile but remains with a leukocytosis 13.7. I have sent for urine pneumococcal, urine Legionella, extended respiratory pathogen panel and serum mycoplasma IgM. Infectious Disease has been consulted. I will attempt to wean her steroids quickly back to her baseline of 10 mg of prednisone a day. Will continue these antibiotics currently. Id consult pending for management of antibiotics as well as antiretrovirals. 05/29/25: patient tells me she is improved. Overall she states she is breathing 60% back to her normal. Her cough is increased since yesterday but it is dry and her phlegm is back to her baseline. She has no hemoptysis, fever, chills. Currently she is on 3 L nasal cannula with saturations 94% I decreased her to 2 L and her saturations were 93%. She is afebrile. White blood cell count 15.5, creatinine 0.39. Cumulative she is +2.3 L since admission. Plan: patient improving on vancomycin, cefepime and azithromycin all started on 05/28/2025. respiratory pathogen panel, urine pneumococcal, urine Legionella, urine blasto pending. Oxygenation improving with goal saturation 90-94%. 05/30/2025: Patient tells me she continues to slowly improve. States she feels okay. Breathing is 70% back to her normal. She has a severe cough with light yellow phlegm and no hemoptysis. When I enter the room she was sleeping on 3 L nasal cannula and I decreased her to room air and after 6 minutes her saturations decreased to 89%. I placed her on 2 L nasal cannula her saturations were 95%. White blood cell count 11.9, creatinine 0.41. Procalcitonin was 0 on 05/27/2025 and is 0 today. Her COPD was 14.7 on 05/28/2025 and today is 3.1. Her BNP was 514 on 05/27/2025 and today is 805. CD4 count is 56. Patient had an overnight oximetry on 3 L nasal cannula with recording duration of 6 hours and 9 minutes. Average saturation 95%. Low saturation 85%. Time with saturation less than or equal to 88% was 13 minutes, oxygen desaturation index 1.2. Yesterday she was positive 2.0 L, cumulative she is positive 4.3 L since admission, Her weight today is 44 kg. Plan: slowly improving on vancomycin, cefepime and has completed azithromycin. Respiratory pathogen panel negative. Urine Legionella negative, urine pneumococcal, sputum for fungus, sputum for PJP, mycoplasma IgM urine histo all pending. Her CRP is improved, she remains afebrile and her white blood cell count is improving. I will perform a chest x-ray today and an echocardiogram to assess cardiac function. later in the day chest x-ray with minimally improved bibasilar infiltrates. Later in the day started on Septra per ID. Vancomycin discontinued 05/31/2025: Patient tells me she slept well. She is 75% breathing back to her normal. Her cough is better today. She has a little bit of light yellow phlegm. No wheezing. When I enter the room she was on 4 L with saturations 97%. I decreased her to 1 L and her saturations were 93%. she is afebrile. White blood cell count 10.0, creatinine 0.52. Yesterday she was -480 mL, cumulative she was positive 3.6 L since admission. Patient had an overnight oximetry on 4 L nasal cannula with recording duration of 5 hours and 20 minutes, average saturation 93%. Low saturation 88%. Time with saturation less than or equal to 88% was 2 minutes, oxygen desaturation index 2.4. Plan: patient is afebrile, leukocytosis improving and respiratory status slowly improving. Currently on cefepime and Septra. Patient currently on 1 L oxygen and her baseline oxygen was 2 L at home. Patient has been on Solu-Medrol followed by prednisone 40 mg p.o. since 05/27/2025, today is day 4. I will defer steroids for PCP to Infectious Disease. As below from a COPD perspective I have decreased her to prednisone 10 which is her home dose. Urine pneumococcal, sputum for fungus, sputum for PJP, mycoplasma IgM urine histo all pending Discussed with Dr. Vigil. Will follow with you. (2) COPD (chronic obstructive pulmonary disease): Code(s): J44.9 - Chronic obstructive pulmonary disease, unspecified Status: Acute Assessment and Plan: Regarding her COPD the patient was diagnosed about 5 years ago. She has been on oxygen 2 years. She has been on home prednisone 10 mg a day for 2-3 years and has never been attempted to be weaned off. PFTs 06/21/2024 with an FEV1 of 0.82 L, 35% predicted, ratio 39%, hyperinflation, severely decreased DLCO at remain moderately decreased when adjusted for alveolar volume and in comparison to 08/05/2022 there is worsening in her FVC, FEV1 and diffusing capacity and increase in her total lung capacity, functional residual capacity and residual volume. She tells me she uses 2 L at rest, 3 L with activity and 2-1/2 L when she sleeps. 2 L NC ABG 04/04/2024 7.43/41/69. On a good day she can walk 1.5 room lengths. Patient was initially wheezing but currently has no wheezes. ABG on 3 L in the emergency room 7.39/60/51. 05/28/25: Plan: Patient receive Solu-Medrol 60 mg IV q.6 hours x3 doses, last at 5:40 AM this morning. Given her bilateral pneumonia I will attempt to quickly wean her steroids back to her baseline and will place her on 40 mg p.o. q.day starting on 05/29/2025. I will continue ipratropium and albuterol nebulizers q.6 hours. This will provide adequate beta agonist and muscarinic antagonist and I will discontinue her home Advair and incruse ellipta. Will start guaifenesin 1200 mg p.o. b.i.d.. I will treat the patient for pneumonia and or COPD exacerbation and eventually repeat a blood gas to determine if she remains hypercarbic. Goal saturation 90-94%, adjust oxygen accordingly. 05/29/25: Patient with wheezes left upper lobe but otherwise states her breathing is improving. Plan: The patient is receiving prednisone 40 mg p.o. today. I will decrease her to prednisone 10 mg p.o. q.day starting 05/30/2025. I will start budesonide 500 mcg nebulizers b.i.d. today. Continue ipratropium and albuterol nebulizers q.6 hours. Continue guaifenesin 1200 p.o. b.i.d.. Will add Tessalon Perles 200 mg p.o. t.i.d. for her cough. 05/30/25: No wheezes today. She has persistent coughing. She has minimal phlegm and no difficulty expectorating. Plan: I will continue prednisone 40 mg p.o. q.day day 3 of steroids. Continue DuoNebs q.6, budesonide nebs b.i.d., guaifenesin 1200 p.o. b.i.d. and Tessalon Perles 200 t.i.d.. Later in the day ABG on 2 L nasal cannula 7.43/55/67. 05/31/25: No wheezes today. Cough is improved. No difficulty expectorating. Plan: From a COPD perspective, I have decreased the prednisone to 10 mg p.o. q.day, continue DuoNebs q.6, budesonide nebs b.i.d., guaifenesin 1200 p.o. b.i.d. and Tessalon Perles 200 t.i.d.. Patient remains with hypercarbic respiratory failure but this has improved as she is improving from her pneumonia. I will continue to follow the patient clinically and repeat a blood gas in the future to determine if she remains hypercarbic. I will not initiate noninvasive ventilation at night at this time. (3) Lung mass: Code(s): R91.8 - Other nonspecific abnormal finding of lung field Status: Acute Assessment and Plan: Patient with 55 pack year tobacco use, quit in 2021. CT angiogram of the chest was reviewed with Radiology and was negative for PE, and compared to 02/01/2024 there was unchanged upper lobe calcified granulomas and severe panlobular emphysema, there were new right middle lobe and lingula dense infiltrates with consolidation and a new right upper lobe 2.4 cm nodule with right hilar lymph node measuring 4.1 x 2.1 cm that was not associated with infiltrates. There is a new mass in the lingula measuring 2 x 1.1 cm and this was associated with adjacent infiltrates. 05/28/2025: Plan: Patient does desire further workup of this right lung mass. patient cannot undergo a CT-guided biopsy at [facility] as she is on supplemental oxygen and deemed too high risk to perform the procedure at [facility]. Furthermore the mass is centrally located. Patient has a right hilar mass and ideally she would undergo bronchoscopy with EBUS and sampling of the right hilar mass which should be performed after she has been treated for her acute pneumonia. Bronchoscopy with EBUS cannot be done at [facility]. Patient is willing to be referred to a higher level of care facility and at this point will treat the patient for her acute pneumonia and when she is recovered will refer to [facility] in [place], Dr. Owen, as an outpatient. 05/29: I have pushed the CT scan from 05/27/2025 and 02/01/2024 to [facility] Plan: I discussed with Dr. Owen and he prefers to complete treatment for pneumonia and then his staff will call him to set up an outpatient bronchoscopy with EBUS. Patient's best phone number is [phone] and I forwarded this phone number to him. Subjective Date/time seen: 05/31/25 09:33 Interval history: 02/20/2025: This is a new pulmonary consult for COPD and lung mass 65-year-old with a history of GOLD grade 3 group E COPD on home oxygen 2 L and home prednisone 10 a day, HIV on antiretrovirals, HTN. Regarding her COPD the patient was diagnosed about 5 years ago. She has been on oxygen 2 years. She has been on home prednisone 10 mg a day for 2-3 years and has never been attempted to be weaned off. PFTs 06/21/2024 with an FEV1 of 0.82 L, 35% predicted, ratio 39%, hyperinflation, severely decreased DLCO at remain moderately decreased when adjusted for alveolar volume and in comparison to 08/05/2022 there is worsening in her FVC, FEV1 and diffusing capacity and increase in her total lung capacity, functional residual capacity and residual volume. She tells me she uses 2 L at rest, 3 L with activity and 2-1/2 L when she sleeps. 2 L NC ABG 04/04/2024 7.43/41/69. On a good day she can walk 1.5 room lengths. patient smoked tobacco from age 7 to age 62 at 1 pack per day. 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 She lives in [place] but never worked in the [employer], denies sand blasting, welding, asbestos were, professional painting, mining, quarry work or construction work. Patient is HIV and previously saw Dr. Franco and was on antiretroviral medications and she tells me her levels were undetectable. Dr. Franco than retired and she could not find a physician but continued to take medicines. Currently she is seeing a PCP who prescribes her medicines. She does not know the status of her viral load. Patient states that she does have continued problems with thrush. Recently admitted to [facility] 04/12/2025 through 04/16/2025. treated for COPD exacerbation and pneumonia. Discharged on Augmentin and to continue her Symbicort, Spiriva and prednisone 10 Ed. continue her retrovirals. Patient tells me she her got back to her normal from a respiratory viewpoint. Approximately 7 days ago the patient developed shortness of breath initially with no change in her phlegm. over the last 3 days she developed right-sided pleuritic chest pain. Over the last 2 days she developed cough with worsening phlegm that was now dark green. She had increased wheezing and shortness of breath. Her dyspnea on exertion worsened and she presented to the emergency department. in the emergency in her blood pressure is 159/98, heart rate 102, respirations 35, she is placed on 5 L nasal cannula saturations 96%. She had end expiratory wheezes. Procalcitonin 0.0. BNP 514. MRSA nasal swab positive. COVID influenza and RSV RT PCR assay negative. CT angiogram of the chest was reviewed with Radiology and was negative for PE, and compared to 02/01/2024 there was unchanged upper lobe calcified granulomas and severe panlobular emphysema, there were new right middle lobe and lingula dense infiltrates with consolidation and a new right upper lobe 2.4 cm nodule with right hilar lymph node measuring 4.1 x 2.1 cm that was not associated with infiltrates. There is a new mass in the lingula measuring 2 x 1.1 cm and this was associated with adjacent infiltrates. She was treated for COPD exacerbation and pneumonia with Solu-Medrol, bronchodilators, ceftriaxone and azithromycin. ceftriaxone and azithromycin were changed to cefepime and vanco on admission to the hospital. 05/28/2025: The patient tells me she is feeling better, she has 50% back to her normal, her phlegm is gone from dark green to yellow and her right-sided pleuritic pain is resolved. She is afebrile. Currently she is on 3 L nasal cannula saturations 93%. Her white blood cell count is 13.7, her creatinine is 0.39, her CRP is 14.7. 05/29/25: patient tells me she is improved. Overall she states she is breathing 60% back to her normal. Her cough is increased since yesterday but it is dry and her phlegm is back to her baseline. She has no hemoptysis, fever, chills. Currently she is on 3 L nasal cannula with saturations 94% I decreased her to 2 L and her saturations were 93%. She is afebrile. White blood cell count 15.5, creatinine 0.39. Cumulative she is +2.3 L since admission. 05/30/2025: Patient tells me she continues to slowly improve. States she feels okay. Breathing is 70% back to her normal. She has a severe cough with light yellow phlegm and no hemoptysis. When I enter the room she was sleeping on 3 L nasal cannula and I decreased her to room air and after 6 minutes her saturations decreased to 89%. I placed her on 2 L nasal cannula her saturations were 95%. White blood cell count 11.9, creatinine 0.41. Procalcitonin was 0 on 05/27/2025 and is 0 today. Her COPD was 14.7 on 05/28/2025 and today is 3.1. Her BNP was 514 on 05/27/2025 and today is 805. Patient had an overnight oximetry on 3 L nasal cannula with recording duration of 6 hours and 9 minutes. Average saturation 95%. Low saturation 85%. Time with saturation less than or equal to 88% was 13 minutes, oxygen desaturation index 1.2. Yesterday she was positive 2.0 L, cumulative she is positive 4.3 L since admission, Her weight today is 44 kg. Later in the day ABG on 2 L nasal cannula 7.43/. Later in the day started on Septra per ID. 05/31/2025: Patient tells me she slept well. She is 75% breathing back to her normal. Her cough is better today. She has a little bit of light yellow phlegm. No wheezing. When I enter the room she was on 4 L with saturations 97%. I decreased her to 1 L and her saturations were 93%. she is afebrile. White blood cell count 10.0, creatinine 0.52. Yesterday she was -480 mL, cumulative she was positive 3.6 L since admission. Patient had an overnight oximetry on 4 L nasal cannula with recording duration of 5 hours and 20 minutes, average saturation 93%. Low saturation 88%. Time with saturation less than or equal to 88% was 2 minutes, oxygen desaturation index 2.4. DATA: 05/27/25: EXAMINATION: CTA chest PE protocol INDICATION: Right-sided pleuritic chest pain. COMPARISON: CT dated 02/01/2024. FINDINGS: Study is technically adequate. No evidence for pulmonary embolism. There is bilateral hilar lymphadenopathy. There is subcarinal lymphadenopathy. Right hilar lymph node measuring 4.1 x 2.1 cm. No significant pleural or pericardial effusion. There is a densely calcified granuloma in the right upper lobe. There is scarring in the left upper lobe with calcified granuloma. There is a new mass in the right upper lobe, image 69, measuring 2.4 x 1.8 cm, concerning for bronchogenic carcinoma. There is a new mass in the lingula with irregular configuration measuring 2 x 1.1 cm. There is right middle lobe and lingular airspace consolidation. No pneumothorax. There is emphysema. There is 2.9 cm hypodense mass of the right hepatic lobe with marginal enhancement. Mild thoracic spondylosis with accentuated kyphosis. There is a second peripherally enhancing mass in the left hepatic lobe measuring 1.8 cm. IMPRESSION: 1. New bilateral upper lobe masses, largest measuring up to 2.4 cm, concerning for bronchogenic carcinoma. Abnormal hilar lymphadenopathy, suspicious for metastatic disease. 2: Right middle lobe and lingular airspace consolidation, consistent with pneumonia. 3: No large central pulmonary embolism. Evaluation of peripheral pulmonary arteries somewhat limited due to motion artifact and contrast bolus timing. 06/21/2024: This is a pulmonary function test with spirometry, plethysmography and diffusing capacity. The test was performed and results interpreted in accordance with the 2019 and 2005 ATS/ERS Task Force guidelines respectively using the Global Lung Function Initiative-2012 reference equations. Patient demonstrated good effort and cooperation. Reproducibility criteria were met. The quality of the spirometry maneuver was Grade A. Findings: Spirometry: There is decreased maximal expiratory airflow at all lung volumes with concave expiratory flow tracing. The FVC is 2.09 L, 70% predicted. The FEV1 is 0.82 L, 35% predicted. The FEV1: FVC ratio is 39%. Plethysmography: The total lung capacity is 6.74 L, 137% predicted. The functional residual capacity is 4.62 L, 167% predicted. The residual volume is 4.59 L, 232% predicted. The residual volume: Total lung capacity ratio 68%. Diffusing capacity: The diffusing capacity unadjusted for hemoglobin and carboxy hemoglobin is 6.1, 29% predicted. The diffusing capacity adjusted for alveolar volume is 2.06, 46% predicted. In comparison to previous pulmonary function testing on 08/05/2022, the pre bronchodilator FVC has decreased from 2.80 L to 2.09 L. The pre bronchodilator FEV1 has decreased from 1.19 L to 0.82 L. The total lung capacity is unchanged from 6.30 L to 6.74 L. The functional residual capacity is increased from 3.81 L to 4.62 L. the residual volume has increased from 3.45 L to 4.59 L. the residual volume: Total lung capacity ratio has increased from 55% to 68%. The diffusing capacity unadjusted for hemoglobin and carboxyhemoglobin is decreased from 9.1 to 6.1. The diffusing capacity adjusted for alveolar volume has decreased from 2.55 to 2.06 Impression: There is a severe obstructive abnormality. The increase in residual volume to total lung volume ratio is consistent with hyperinflation from an obstructive abnormality. The diffusing capacity unadjusted for hemoglobin and carboxyhemoglobin is severely decreased and remains moderately decreased when adjusted for alveolar volume. In compared to previous pulmonary function testing on 08/05/2022, there has been a greater than anticipated time dependent decrease in the FVC, FEV1, and diffusing capacity. There has been a greater than anticipated time dependent increase in the total lung capacity, functional residual capacity, residual volume, and the residual volume: Total lung capacity ratio. clinical correlation is recommended. 03/02/24: EXAMINATION: MR abdomen wo/w con INDICATION: Liver mass. TECHNIQUE: Magnetic resonance imaging (MRI) of the abdomen was performed without and with 9 mL MultiHance intravenous contrast. COMPARISON: Chest CT 02/01/2024 FINDINGS: There are 5 hemangiomas in the liver measuring up to 3.2 cm characterized by interrupted peripheral puddling of contrast. There is an 8 mm arterially hyperenhancing mass in left hepatic lobe without washout, likely a hemangioma or focal nodular hyperplasia. There are a few cysts in the liver measuring up to 7 mm. The gallbladder, spleen, pancreas, adrenal glands, and kidneys are normal. There are no dilated loops of bowel. IMPRESSION: 1. Benign masses in the liver. 02/01/2024: CT Scan of the Chest without Contrast: Clinical Indication: Lung cancer screening, nicotine dependence Technique: Contiguous sections were acquired throughout the chest without intravenous contrast. Dose reduction technique was used on this scan by utilizing automated exposure control and iterative reconstruction technique. The dose-length product (DLP) was 66.12 mGy-cm. Findings: There is no evidence of any significant mediastinal, hilar or axillary lymphadenopathy. Coronary artery calcifications are present.. There is no evidence of pleural or pericardial effusion. There is severe emphysema with biapical scarring and biapical calcified granulomas. There is a 4 mm right upper lobe pulmonary nodule (axial image 52). Images through the upper abdomen reveal 2.9 cm hypodense, noncystic hepatic mass in the right hepatic lobe there is an additional 1.6 cm hypodense mass in the anterior left hepatic lobe.. Chronic compression deformity of L1 noted. Impression: Lung RADS 2-S: Benign appearance. 12 month follow-up screening CT advised. 2 hypodense hepatic masses, measuring 2.9 cm and 1.6 cm in size respectively. These are indeterminate. Pre and postcontrast hepatic MR recommended to further assess. 08/05/2022: This is a 6 minute walk test. The test was performed and interpreted in accordance with the 2014 ERS/ATS task force guidelines. Findings: The patient's resting room air oxygen saturation measured by pulse oximetry was 95%, the heart rate was 68 bpm, and the modified Stevie dyspnea score was 0. Patient ambulated for 366 meters and oxygen saturation remained 94 to 96%. At the end of the study the heart rate was 74 bpm and the modified Stevie dyspnea score was 0. The patient did not qualify for supplemental oxygen at rest or with ambulation. There are no prior studies for comparison. 08/05/2022: Echo Summary 1. Complete two-dimensional, color flow and Doppler transthoracic echocardiogram is performed. 2. Left ventricular systolic function is normal, estimated at 50-55%. 3. The left ventricular diastolic function is grade I diastolic dysfunction. 4. Right ventricular systolic function is normal. 5. There is mild mitral valve regurgitation. 6. There is mild tricuspid valve regurgitation. Right Ventricle Right ventricular chamber dimension is normal. Right ventricular systolic function is normal. Right Atria Right atrial chamber dimension is normal. Atrial Septum Intact interatrial septum visualized by color flow imaging. Review of Systems Constitutional: Constitutional: Reports no additional constitutional complaints Eyes: Eyes: Reports no additional eye complaints ENT: Reports system reviewed and no additional complaints, except as documented Cardiovascular: Cardiovascular: Reports no additional cardiovascular complaints Respiratory: Respiratory: Reports no additional respiratory complaints Gastrointestinal: Gastrointestinal: Reports no additional gastrointestinal complaints Musculoskeletal: Musculoskeletal: Reports no additional musculoskeletal complaints Neurologic: Reports system reviewed and no additional complaints, except as documented Psychiatric: Psychiatric: Reports no additional psychiatric complaints Endocrine: Endocrine: Reports no additional endocrine complaints Hematologic/Lymphatic: Hematologic/Lymphatic: Reports no additional hematologic/lymphatic complaints Allergic/Immunologic: Allergic/Immunologic: Reports no additional allergic/immunologic complaints Exam Const: General: cooperative, healthy appearing and comfortable Orientation/consciousness: oriented to person, oriented to place and oriented to time HENMT: Head: normal to inspection Ears: hearing grossly normal bilaterally Eyes: General: appearance normal, both eyes and all related structures Neck: Neck: normal visual inspection Chest: Chest palpation & inspection: normal inspection of the chest Resp: Effort & Inspection: normal respiratory effort and able to speak in complete sentences Auscultation: crackles, no rales, no rhonchi, wheezes and lung sounds not diminished Other: No Bibasilar crackles. no wheezes today Cardio: Jugular venous distension: no JVD GI: Inspection: normal to inspection Skin: General skin exam: normal color Neuro: General: oriented to person, oriented to place and oriented to time Extrem: General: normal to inspection Psych: Appearance: grossly normal Objective Data Vital Signs Vital Signs: Vital Signs - 24 hr 05/30/25 12:00 05/30/25 14:00 05/30/25 16:00 Temperature 36.4 C Pulse Rate 85 91 92 Respiratory Rate 18 Blood Pressure 147/86 H Pulse Oximetry 93 Oxygen Delivery Oxygen Flow Rate 05/30/25 19:56 05/30/25 19:56 05/30/25 20:00 Temperature Pulse Rate 87 87 Respiratory Rate 18 18 Blood Pressure Pulse Oximetry 90 94 Oxygen Delivery Nasal Cannula Nasal Cannula Oxygen Flow Rate 3 3 05/30/25 20:00 05/30/25 20:10 05/30/25 20:46 Temperature 36.7 C Pulse Rate 90 97 85 Respiratory Rate 20 18 Blood Pressure 146/84 H Pulse Oximetry 94 Oxygen Delivery Oxygen Flow Rate 05/30/25 23:06 05/31/25 00:00 05/31/25 01:54 Temperature Pulse Rate 94 83 82 Respiratory Rate 20 Blood Pressure Pulse Oximetry 91 94 Oxygen Delivery Nasal Cannula Nasal Cannula Oxygen Flow Rate 3 4 05/31/25 01:54 05/31/25 02:05 05/31/25 04:00 Temperature Pulse Rate 82 86 74 Respiratory Rate 20 20 Blood Pressure Pulse Oximetry Oxygen Delivery Oxygen Flow Rate 05/31/25 04:57 05/31/25 08:20 05/31/25 08:20 Temperature 36.6 C Pulse Rate 78 86 Respiratory Rate 17 20 Blood Pressure 155/52 H Pulse Oximetry 97 93 Oxygen Delivery Nasal Cannula Oxygen Flow Rate 1 05/31/25 08:27 Temperature Pulse Rate 86 Respiratory Rate 20 Blood Pressure Pulse Oximetry Oxygen Delivery Oxygen Flow Rate Intake/Output Intake/Output: Intake & Output 05/28/25 05/29/25 05/30/25 05/31/25 23:59 23:59 23:59 23:59 Intake Total 2260 2502 1920 850 Output Total 177 465 5940 800 Balance 2009 2001 -480 50 Meds/Results Medications: Active Medications Generic Name Dose Route Start Last Admin Trade Name Freq PRN Reason Stop Dose Admin Albuterol 1 puff 05/28/25 09:10 05/28/25 16:23 Albuterol Sulfate (*Sp) Aerosol 1 Puff INHALATION 1 puff QID PRN Administration Shortness Of Breath Or Wheezing Albuterol/Ipratropium 3 ml 05/28/25 02:00 05/31/25 08:17 Ipratropium 0.5 Mg/Albuterol Sulfate 2.5 Mg Ampul.Neb 3 Ml INHALATION 3 ml Q6HRT SOHAM Administration Benzonatate 200 mg 05/29/25 13:00 05/30/25 17:14 Benzonatate 100 Mg Capsule PO 200 mg TID SOHAM Administration Budesonide 0.5 mg 05/29/25 10:00 05/31/25 08:17 Budesonide Respule Neb 0.5 Mg/2 Ml Amp INHALATION 0.5 mg Q12HRT SOHAM Administration Emtricitabine/Tenofovir 2 tab 05/28/25 09:00 05/30/25 09:01 Emtricitabine-Tenofovir 100 Mg-150 Mg Tablet PO 2 tab DAILY SOHAM Administration Enoxaparin Sodium 40 mg 05/31/25 09:00 Enoxaparin 40 Mg/0.4 Ml Syringe SUB-Q DAILY SOHAM Guaifenesin 1,200 mg 05/28/25 13:30 05/30/25 21:11 Guaifenesin 12 Hr 600 Mg Tabcr PO 1,200 mg Q12HR SOHAM Administration Cefepime HCl 2 gm/ Sodium 50 mls @ 100 mls/hr 05/28/25 10:00 05/31/25 09:08 Chloride IVPB 100 mls/hr Q8H SOHAM Administration Losartan Potassium 25 mg 05/28/25 09:00 05/30/25 09:00 Losartan Potassium 25 Mg Tablet PO 25 mg DAILY SOHAM Administration Darunavir 800 Mg 800 mg 05/28/25 15:50 05/30/25 09:02 Tablet Home Med PO 06/27/25 15:49 800 mg DAILY SOHAM Administration Ritonavir 100 Mg 100 mg 05/28/25 15:50 05/30/25 09:02 Tablet Homemed PO 06/27/25 15:49 100 mg DAILY SOHAM Administration Nystatin 5 ml 05/28/25 09:00 05/30/25 21:14 Nystatin 100,000 Units/Ml Susp 5 Ml Oral.Susp PO 5 ml QID SOHAM Administration Ondansetron HCl 4 mg 05/31/25 08:58 05/31/25 09:07 Ondansetron Hcl Odt 4 Mg Tablet PO 4 mg Q6H PRN Administration Nausea And Vomiting Perflutren Lipid Microsphere 0 ml 05/30/25 08:21 Perflutren Lipid Microspheres 1.5 Ml Vial Diluted To 10 Ml Total Volume IV PUSH 06/02/25 08:21 ONCE PRN adequate visualization Protocol Prednisone 10 mg 05/31/25 09:00 Prednisone 10 Mg Tablet PO DAILY@0800 SOHAM Sodium Chloride 2 spray 05/28/25 09:10 05/28/25 10:43 Saline 0.65% James Soln 44 Ml Btl NASAL 2 spray QID PRN Administration Nasal Congestion Trimethoprim/Sulfamethoxazole 2 tab 05/30/25 09:00 05/31/25 05:24 Sulfamethoxazole/Trimethoprim 800/160 Mg Ds Tablet PO 2 tab Q8HR SOHAM Administration Radiology Results: ITS Impressions Chest CTA 05/27/25 20:02 IMPRESSION: 1. New bilateral upper lobe masses, largest measuring up to 2.4 cm, concerning for bronchogenic carcinoma. Abnormal hilar lymphadenopathy, suspicious for metastatic disease. 2: Right middle lobe and lingular airspace consolidation, consistent with pneumonia. 3: No large central pulmonary embolism. Evaluation of peripheral pulmonary arteries somewhat limited due to motion artifact and contrast bolus timing. Chest X-Ray 05/30/25 09:10 Impression: Compared to the prior study probable pneumonic process appears slightly improved, there is a new small right pleural effusion. Labs Labs: Laboratory Results - last 24 hr 08/05/29/25 05/30/25 21:40 04:44 12:42 WBC RBC Hgb Hct MCV MCH MCHC RDW Plt Count MPV Immature Gran % (Auto) Neut % (Auto) Lymph % (Auto) [place] % (Auto) Eos % (Auto) Baso % (Auto) Lymph # (Auto) [place] # (Auto) Eos # (Auto) Baso # (Auto) Abs Immat Gran (auto) Absolute Neuts (auto) Absolute Nucleated RBC Nucleated RBC % Sodium Potassium Chloride Carbon Dioxide Anion Gap BUN Creatinine Estim Creat Clear Calc Estimated GFR Glucose Calcium Total Bilirubin AST ALT Alkaline Phosphatase Total Protein Albumin HIV-1 RNA (PCR) 90 HIV-1 RNA (PCR) log10 1.954 M.pneumoniae IgM Titer <770 Urine Pneumococcal Ag Cancelled 05/31/25 04:47 WBC 10.0 RBC 4.17 L Hgb 10.9 L Hct 35.0 L MCV 83.9 MCH 26.1 MCHC 31.1 L RDW 16.2 H Plt Count 332 MPV 9.1 Immature Gran % (Auto) 3.2 H Neut % (Auto) 70.7 Lymph % (Auto) 19.8 [place] % (Auto) 5.7 Eos % (Auto) 0.2 Baso % (Auto) 0.4 Lymph # (Auto) 1.99 [place] # (Auto) 0.6 Eos # (Auto) 0.0 Baso # (Auto) 0.0 Abs Immat Gran (auto) 0.32 H Absolute Neuts (auto) 7.1 H Absolute Nucleated RBC 0.000 Nucleated RBC % 0.0 Sodium 131 L Potassium 3.7 Chloride 93 L Carbon Dioxide 35 H Anion Gap 3 L BUN 13 Creatinine 0.52 L Estim Creat Clear Calc 66 Estimated GFR > 60 Glucose 89 Calcium 8.1 L Total Bilirubin < 0.1 L AST 29 ALT 22 Alkaline Phosphatase 66 Total Protein 6.1 L Albumin 3.1 L HIV-1 RNA (PCR) HIV-1 RNA (PCR) log10 M.pneumoniae IgM Titer Urine Pneumococcal Ag
[2025-05-31] MEDS: guaiFENesin 12 HR 600 MG TABCR 1200 MG PO ×2 (09:45→20:52)
[2025-05-31] MEDS: BENZONATATE 100 MG CAPSULE 200 MG PO ×3 (09:45→17:24)
[2025-05-31] MEDS: DARUNAVIR 800 MG 800 EACH PO (09:45)
[2025-05-31] MEDS: LOSARTAN POTASSIUM 25 MG TABLET PO (09:45)
[2025-05-31] MEDS: EMTRICITABINE-TENOFOVIR 100 MG-150 MG TABLET 2 TAB PO (09:45)
[2025-05-31] MEDS: ENOXAPARIN 40 MG/0.4 ML SYRINGE SUB-Q (09:46)
[2025-05-31] MEDS: NYSTATIN 100,000 UNITS/ML SUSP 5 ML ORAL.SUSP PO ×4 (09:46→20:52)
[2025-05-31] MEDS: RITONAVIR 100 MG 100 EACH PO (09:46)
--- NOTE | 2025-05-31 10:40 | WPDINFPN2 ---
Progress Note: A&P Assessment and Plan (1) HIV (human immunodeficiency virus infection): Qualifiers: HIV symptom status: unspecified Qualified Code(s): Z21 - Asymptomatic human immunodeficiency virus [HIV] infection status Code(s): B20 - Human immunodeficiency virus [HIV] disease Status: Acute (2) Community acquired pneumonia: Qualifiers: Laterality: unspecified laterality Qualified Code(s): J18.9 - Pneumonia, unspecified organism Code(s): J18.9 - Pneumonia, unspecified organism Status: Acute (3) Acute on chronic respiratory failure with hypoxia and hypercapnia: Code(s): J96.21 - Acute and chronic respiratory failure with hypoxia; J96.22 - Acute and chronic respiratory failure with hypercapnia Status: Acute (4) COPD with acute lower respiratory infection: Code(s): J44.0 - Chronic obstructive pulmonary disease with (acute) lower respiratory infection Status: Acute (5) Lung mass: Code(s): R91.8 - Other nonspecific abnormal finding of lung field Status: Acute (6) Chronic steroid use: Status: Acute Plan # HIV with CD4 count 1 year ago 176 ( 23%) but now decreased to 56. despite this, viral load, although not undetectable, has improved since last evaluation and is now at 90. Remains on Truvada plus darunavir/ ritonavir. -- patient claims compliance with antiretrovirals. # Acute on chronic hypoxic / hypercapnic respiratory failure in the setting of chronic COPD requiring home O2 of 2 L. -- consider exacerbation COPD. -- chest x-ray and CT evidence of acute pneumonia which may be recurrent after recent treatment for same. -- also with bilateral upper lobe masses and lymphadenopathy and may be suggestive of metastatic malignancy. Long history of tobacco use. -- at risk for HIV-associated opportunistic infection with current CD4 count 56. Consider PJP. Bactrim at PJP treatment dose added yesterday. # Leukocytosis. -- increased but receiving prednisone. Improved. Plan: -- await other outstanding studies such as special stain for PJP and urine antigen analysis. -- await urine for pneumococcus, blastomycosis, and histo antigens. -- may need bronchoscopy as workup for possible malignancy and opportunistic infection. Pulmonary input noted and appreciated. -- now on empiric PJP coverage with Bactrim double strength p.o. 2 tablets q.8 hours. Patient already receiving prednisone. anticipate a 21 day course of currently dosed Bactrim with transition to 1 double-strength tablet daily ( or 1 tablet every Wednesday - Wednesday- Wednesday ) after completing treatment dose. -- Continue cefepime --day 4 of 7. -- she will eventually need outpatient bronchoscopy scheduled to further evaluate upper lobe masses which may involve malignancy. -- further recommendations to follow. Patient was seen via video telehealth consultation with the assistance of staff. Chart, data, and patient independently reviewed. Patient was located at [facility] while I was located in my [place] office. Received verbal consent from patient. Subjective Date/time seen: 05/31/25 10:40 Interval history: 05/29/2025: Afebrile. Vital signs stable. Some increase in dry cough. Appreciate Pulmonary input. They point out, however, specific bronchoscopy to assess upper lobe masses could not be performed at this institution. 05/30/2025: Increasing shortness of breath today. CD4 count now down to 56. 05/31/2025: Breathing may be improving. Seems to be tolerating baseline 2 L per nasal cannula. Despite a drop in her CD4 count viral load is only 90. MRSA screen: Positive Sputum culture: Normal respiratory nga Respiratory pathogen panel: Negative including chlamydia and mycoplasma. Urine Legionella antigen: Negative Urine pneumococcal antigen: Pending Urine Histoplasma antigen: Pending Blastomycosis: Pending PJP stain: Pending Viral load: 90 Review of Systems Review of Systems: All systems reviewed & are unremarkable except as noted in HPI and below Exam Narrative: Awake, alert, and interactive. No distress With decreased shortness of breath today. Normocephalic. No conjunctivitis. No respiratory distress. Abdomen not significantly distended. No rash. Objective Data Vital Signs Vital Signs: Vital Signs - 24 hr 05/30/25 12:00 05/30/25 14:00 05/30/25 16:00 Temperature 97.6 F Pulse Rate 85 91 92 Respiratory Rate 18 Blood Pressure 147/86 H Pulse Oximetry 93 Oxygen Delivery Oxygen Flow Rate 05/30/25 19:56 05/30/25 19:56 05/30/25 20:00 Temperature Pulse Rate 87 87 Respiratory Rate 18 18 Blood Pressure Pulse Oximetry 90 94 Oxygen Delivery Nasal Cannula Nasal Cannula Oxygen Flow Rate 3 3 05/30/25 20:00 05/30/25 20:10 05/30/25 20:46 Temperature 98.1 F Pulse Rate 90 97 85 Respiratory Rate 20 18 Blood Pressure 146/84 H Pulse Oximetry 94 Oxygen Delivery Oxygen Flow Rate 05/30/25 23:06 05/31/25 00:00 05/31/25 01:54 Temperature Pulse Rate 94 83 82 Respiratory Rate 20 Blood Pressure Pulse Oximetry 91 94 Oxygen Delivery Nasal Cannula Nasal Cannula Oxygen Flow Rate 3 4 05/31/25 01:54 05/31/25 02:05 05/31/25 04:00 Temperature Pulse Rate 82 86 74 Respiratory Rate 20 20 Blood Pressure Pulse Oximetry Oxygen Delivery Oxygen Flow Rate 05/31/25 04:57 05/31/25 08:20 05/31/25 08:20 Temperature 97.8 F Pulse Rate 78 86 Respiratory Rate 17 20 Blood Pressure 155/52 H Pulse Oximetry 97 93 Oxygen Delivery Nasal Cannula Oxygen Flow Rate 1 05/31/25 08:27 05/31/25 09:45 Temperature Pulse Rate 86 Respiratory Rate 20 Blood Pressure Pulse Oximetry 93 Oxygen Delivery Nasal Cannula Oxygen Flow Rate 2 Intake/Output Intake/Output: Intake & Output 05/28/25 05/29/25 05/30/25 05/31/25 23:59 23:59 23:59 23:59 Intake Total 2260 2502 1920 850 Output Total 287 634 8202 800 Balance 2009 50 Meds/Results Medications: Active Medications Generic Name Dose Route Start Last Admin Trade Name Freq PRN Reason Stop Dose Admin Albuterol 1 puff 05/28/25 09:10 05/28/25 16:23 Albuterol Sulfate (*Sp) Aerosol 1 Puff INHALATION 1 puff QID PRN Administration Shortness Of Breath Or Wheezing Albuterol/Ipratropium 3 ml 05/28/25 02:00 05/31/25 08:17 Ipratropium 0.5 Mg/Albuterol Sulfate 2.5 Mg Ampul.Neb 3 Ml INHALATION 3 ml Q6HRT SOHAM Administration Benzonatate 200 mg 05/29/25 13:00 05/31/25 09:45 Benzonatate 100 Mg Capsule PO 200 mg TID SOHAM Administration Budesonide 0.5 mg 05/29/25 10:00 05/31/25 08:17 Budesonide Respule Neb 0.5 Mg/2 Ml Amp INHALATION 0.5 mg Q12HRT SOHAM Administration Emtricitabine/Tenofovir 2 tab 05/28/25 09:00 05/31/25 09:45 Emtricitabine-Tenofovir 100 Mg-150 Mg Tablet PO 2 tab DAILY SOHAM Administration Enoxaparin Sodium 40 mg 05/31/25 09:00 05/31/25 09:46 Enoxaparin 40 Mg/0.4 Ml Syringe SUB-Q 40 mg DAILY SOHAM Administration Guaifenesin 1,200 mg 05/28/25 13:30 05/31/25 09:45 Guaifenesin 12 Hr 600 Mg Tabcr PO 1,200 mg Q12HR SOHAM Administration Cefepime HCl 2 gm/ Sodium 50 mls @ 100 mls/hr 05/28/25 10:00 05/31/25 09:08 Chloride IVPB 100 mls/hr Q8H SOHAM Administration Losartan Potassium 25 mg 05/28/25 09:00 05/31/25 09:45 Losartan Potassium 25 Mg Tablet PO 25 mg DAILY SOHAM Administration Darunavir 800 Mg 800 mg 05/28/25 15:50 05/31/25 09:45 Tablet Home Med PO 06/27/25 15:49 800 mg DAILY SOHAM Administration Ritonavir 100 Mg 100 mg 05/28/25 15:50 05/31/25 09:46 Tablet Homemed PO 06/27/25 15:49 100 mg DAILY SOHAM Administration Nystatin 5 ml 05/28/25 09:00 05/31/25 09:46 Nystatin 100,000 Units/Ml Susp 5 Ml Oral.Susp PO 5 ml QID SOHAM Administration Ondansetron HCl 4 mg 05/31/25 08:58 05/31/25 09:07 Ondansetron Hcl Odt 4 Mg Tablet PO 4 mg Q6H PRN Administration Nausea And Vomiting Perflutren Lipid Microsphere 0 ml 05/30/25 08:21 Perflutren Lipid Microspheres 1.5 Ml Vial Diluted To 10 Ml Total Volume IV PUSH 06/02/25 08:21 ONCE PRN adequate visualization Protocol Prednisone 10 mg 05/31/25 09:00 05/31/25 09:45 Prednisone 10 Mg Tablet PO 10 mg DAILY@0800 SOHAM Administration Sodium Chloride 2 spray 05/28/25 09:10 05/28/25 10:43 Saline 0.65% James Soln 44 Ml Btl NASAL 2 spray QID PRN Administration Nasal Congestion Trimethoprim/Sulfamethoxazole 2 tab 05/30/25 09:00 05/31/25 05:24 Sulfamethoxazole/Trimethoprim 800/160 Mg Ds Tablet PO 2 tab Q8HR SOHAM Administration Radiology Results: ITS Impressions Chest CTA 05/27/25 20:02 IMPRESSION: 1. New bilateral upper lobe masses, largest measuring up to 2.4 cm, concerning for bronchogenic carcinoma. Abnormal hilar lymphadenopathy, suspicious for metastatic disease. 2: Right middle lobe and lingular airspace consolidation, consistent with pneumonia. 3: No large central pulmonary embolism. Evaluation of peripheral pulmonary arteries somewhat limited due to motion artifact and contrast bolus timing. Chest X-Ray 05/30/25 09:10 Impression: Compared to the prior study probable pneumonic process appears slightly improved, there is a new small right pleural effusion. Labs Labs: Laboratory Results - last 24 hr 05/27/25 05/29/25 05/30/25 21:40 04:44 12:42 WBC RBC Hgb Hct MCV MCH MCHC RDW Plt Count MPV Immature Gran % (Auto) Neut % (Auto) Lymph % (Auto) [place] % (Auto) Eos % (Auto) Baso % (Auto) Lymph # (Auto) [place] # (Auto) Eos # (Auto) Baso # (Auto) Abs Immat Gran (auto) Absolute Neuts (auto) Absolute Nucleated RBC Nucleated RBC % Sodium Potassium Chloride Carbon Dioxide Anion Gap BUN Creatinine Estim Creat Clear Calc Estimated GFR Glucose Calcium Total Bilirubin AST ALT Alkaline Phosphatase Total Protein Albumin HIV-1 RNA (PCR) 90 HIV-1 RNA (PCR) log10 1.954 M.pneumoniae IgM Titer <770 Urine Pneumococcal Ag Cancelled 05/31/25 04:47 WBC 10.0 RBC 4.17 L Hgb 10.9 L Hct 35.0 L MCV 83.9 MCH 26.1 MCHC 31.1 L RDW 16.2 H Plt Count 332 MPV 9.1 Immature Gran % (Auto) 3.2 H Neut % (Auto) 70.7 Lymph % (Auto) 19.8 [place] % (Auto) 5.7 Eos % (Auto) 0.2 Baso % (Auto) 0.4 Lymph # (Auto) 1.99 [place] # (Auto) 0.6 Eos # (Auto) 0.0 Baso # (Auto) 0.0 Abs Immat Gran (auto) 0.32 H Absolute Neuts (auto) 7.1 H Absolute Nucleated RBC 0.000 Nucleated RBC % 0.0 Sodium 131 L Potassium 3.7 Chloride 93 L Carbon Dioxide 35 H Anion Gap 3 L BUN 13 Creatinine 0.52 L Estim Creat Clear Calc 66 Estimated GFR > 60 Glucose 89 Calcium 8.1 L Total Bilirubin < 0.1 L AST 29 ALT 22 Alkaline Phosphatase 66 Total Protein 6.1 L Albumin 3.1 L HIV-1 RNA (PCR) HIV-1 RNA (PCR) log10 M.pneumoniae IgM Titer Urine Pneumococcal Ag
[2025-06-01] VITALS (21 sets, daily range): BP systolic 122–126; BP diastolic 61–77; PULSE 75–119; RESP 16–20; TEMP 36.6–36.7; O2SAT 87–97
[2025-06-01] MEDS: IPRATROPIUM 0.5 MG/ALBUTEROL SULFATE 2.5 MG AMPUL.NEB 3 ML INHALATION ×4 (01:38→19:47)
[2025-06-01] MEDS: CEFEPIME 2 GM in SODIUM CHLORIDE 0.9% IV 50 ML 100 ML IVPB ×2 (03:48→09:35)
[2025-06-01] MEDS: SULFAMETHOXAZOLE/TRIMETHOPRIM 800/160 MG DS TABLET 2 TAB PO ×3 (05:12→20:50)
--- NOTE | 2025-06-01 06:55 | P.PNIM_ITS ---
Progress Note: A&P Assessment and Plan (1) Sepsis: Qualifiers: Acute respiratory failure type: unspecified Sepsis acute organ dysfunction status: with acute organ dysfunction Sepsis type: sepsis due to unspecified organism Severe sepsis acute organ dysfunction type: acute respiratory failure Severe sepsis shock status: without septic shock Qualified Code(s): A41.9 - Sepsis, unspecified organism; R65.20 - Severe sepsis without septic shock; J96.00 - Acute respiratory failure, unspecified whether with hypoxia or hypercapnia Code(s): A41.9 - Sepsis, unspecified organism Status: Acute Assessment and Plan: * sepsis present on admission evidenced by tachycardia, tachypnea, increased hypoxia, leukocytosis * LA WNL, BP stable * received 1L NS in ED * source: pneumonia, continue management as below * WBC trending up likely due to steroids. Clinically improving. * follow-up blood cultures - NGTD * WBC down trending, 15.5 -> 11.9 -> 10.0 * Remains afebrile (2) Community acquired pneumonia: Qualifiers: Laterality: unspecified laterality Qualified Code(s): J18.9 - Pne umonia, unspecified organism Code(s): J18.9 - Pneumonia, unspecified organism Status: Acute Assessment and Plan: * recent admission 04/2025 for pneumonia, treated with Rocephin and azithromycin, discharged on Levaquin * CTA chest with RML and lingular airspace consolidation consistent with pneumonia * MRSA DNA positive * blood cultures NGTD * sputum culture, legionella, strep, blastomycosis and histo antigens and mycoplasma antibodies pending * infectious disease consulted in light of history of HIV and recurrent pneumonia, recommended to continue cefepime, vanc and azithromycin. * CD4 count 56 * awaiting viral load. Genotype analysis sent * * Pulmonology/ID following * Repeat CXR: Compared to the prior study probable pneumonic process appears slightly improved, there is a new small right pleural effusion * Pending urine Legionella, pneumococcal, mycoplasma IgM, sputum for fungus and sputum for PJP * Anticipate a 21 day course of currently dosed Bactrim with transition to 1 double-strength tablet daily (or 1 tablet every Wednesday - Wednesday- Wednesday ) after completing treatment dose. * Continue Bactrim & Cefepime - switch to oral within next 24-48 hours, discuss with ID (3) COPD with acute lower respiratory infection: Code(s): J44.0 - Chronic obstructive pulmonary disease with (acute) lower respiratory infection Status: Acute Assessment and Plan: * no wheezing this AM. Improving cough * Pulm following * decreased the prednisone to 10 mg p.o. q.day, continue DuoNebs q.6, budesonide nebs b.i.d., guaifenesin 1200 p.o. b.i.d. and Tessalon Perles 200 t.i.d. * discontinue patient's prednisone today - will decrease to 7.5 p.o. q.day today and we continue this for 1 week and then decrease to 5 mg p.o. q.day * Per Pulm recommendations upon discharge: * Prednisone 7.5 mg p.o. q.day through 06/07/2025 then 5 mg p.o. q.day * Symbicort 80-4.5 at 2 puffs b.i.d. * Spiriva Respimat 1.25 mcg at 2 puffs q.day * Rescue albuterol inhaler 2 puffs q.4 hours p.r.n. shortness of breath or wheezing * Rescue albuterol nebulizer 2.5 mg Q 4 hours p.r.n. shortness of breath or wheezing * Oxygen per formal home O2 assessment which I have ordered today. * When she naps or sleeps: Oxygen 4 L nasal cannula. (4) Acute on chronic respiratory failure with hypoxia and hypercapnia: Code(s): J96.21 - Acute and chronic respiratory failure with hypoxia; J96.22 - Acute and chronic respiratory failure with hypercapnia Status: Acute Assessment and Plan: * on 2-3L NC O2 baseline * ABG with pH 7.38, pCO2 60.4, pO2 50.5. pCO2 higher than baseline, but work of breathing improved so BiPAP was deferred. * required up to 5L in ED, now back to baseline 3L * monitor O2 sat (5) Lung mass: Code(s): R91.8 - Other nonspecific abnormal finding of lung field Status: Acute Assessment and Plan: * CTA chest with new bilateral upper lobe masses, largest 2.4 cm concerning for bronchogenic carcinoma * pulmonology consulted, will need outpatient bronchoscopy with EUS at tertiary center likely as outpatient * Pulm discussed with Dr. Owen, [facility] * he prefers her to complete treatment for pneumonia and then his staff will call him to set up an outpatient bronchoscopy with EBUS (6) HIV (human immunodeficiency virus infection): Qualifiers: HIV symptom status: unspecified Qualified Code(s): Z21 - Asymptomatic human immunodeficiency virus [HIV] infection status Code(s): B20 - Human immunodeficiency virus [HIV] disease Status: Acute Assessment and Plan: * managed on darunavir, ritonavir, and Truvada - continue * CD4 count 176 04/2024 - patient was off medication at this time. Reports she restarted ART 2 months ago. * viral load pending * CD4 count 56 * ID following * Begin empiric PJP coverage with Bactrim double-strength p.o. 2 tablets q.8 hours * Pending expectorated sputum for routine Gram stain and culture, fungal culture, cytopathology and special stains for PJP * Await viral load and obtain genotype analysis * Now on empiric PJP coverage with Bactrim DS (7) Systolic heart failure: Code(s): I50.20 - Unspecified systolic (congestive) heart failure Status: Acute Assessment and Plan: * Echo 05/30: EF 45-50, mildly enlarged LV dimension, G1DD, Mild AVR/TVR, moderate MVR * Cardiology consulted * No chest pain, not in heart failure * continue losartan 25 mg p.o. daily and add metoprolol succinate 25 mg p.o. daily * Low dose diuretic if SOB worsens * f/u outpt (8) Chronic steroid use: Status: Acute Assessment and Plan: * on prednisone 10mg daily Subjective Date/time seen: 06/01/25 06:55 Interval history: 65-year-old female with a past medical history of COPD with chronic hypoxic respiratory failure on home O2 of 2 L, chronic prednisone therapy of 10 mg daily, HIV and essential hypertension who presented to the ER from home via EMS due to increased shortness of breath. 06/01/2025 Patient sitting comfortably in bed at time of examination. Reports mild improvement today in symptoms. 02 sat @ 91% on 2L NC. Cardiology consulted today regarding worsening Systolic HF - recommend continuing Losartan and adding Metoprolool succ 25mg daily, adding diuretic if SOB worsens - f/u outpt. Will follow Pulmonology/ID recommendations regarding Pneumonia. Review of Systems Review of Systems: 12 systems were reviewed with pertinent positives and negatives per HPI. Except as documented in the HPI, all other systems were reviewed and are negative. All systems reviewed & are unremarkable except as noted in HPI and below Exam Narrative: General: NAD, chronically ill-appearing Eyes: EOMI ENT: neck supple Cardiovascular: Regular rate and rhythm Respiratory: + rhonchi of RLL, respirations even and unlabored on 3L NC Gastrointestinal: Soft, non tender Genitourinary: no suprapubic tenderness Musculoskeletal: No edema Skin: warm, dry Neuro: Alert. Psych: Mood appropriate Const: Other: Appears older than stated age, cachectic, acutely ill-appearing, sitting up in bed with head of bed at almost 90? HENMT: Other: Head is normocephalic atraumatic, eyes are some what sunken, mucous membranes are moist, no oral pharyngeal erythema Eyes: Other: Pupils are equal and reactive, bilateral cataracts noted Neck: Other: No lymphadenopathy, no JVD Resp: Other: Conversational tachypnea, accessory muscle use, abdominal respirations speaking in 3-4 word sentences, end-expiratory wheezing bilateral anterior waddell Cardio: Other: Mildly tachycardic, 2+ bilateral radial pedal pulses, no murmur GI: Other: Firm, nontender, normoactive bowel sounds Skin: Other: Generalized pallor, non jaundice, 3-4 second cap refill, no mottling Neuro: Other: Alert oriented x4, speech is clear, no facial asymmetry, no localizing neurologic deficits noted during the course of conversation Extrem: Other: No cyanosis, no edema, moves all extremities equally, generalized muscle wasting Psych: Other: Appropriate mood and affect, pleasant and cooperative, judgment and insight intact Objective Data Vital Signs Vital Signs: Vital Signs - 24 hr 05/31/25 08:00 05/31/25 08:20 05/31/25 08:20 Temperature Pulse Rate 88 86 Respiratory Rate 20 Blood Pressure Pulse Oximetry 93 Oxygen Delivery Nasal Cannula Oxygen Flow Rate 1 Fraction of Inspired Oxygen 05/31/25 08:27 05/31/25 09:45 05/31/25 12:00 Temperature Pulse Rate 86 77 Respiratory Rate 20 Blood Pressure Pulse Oximetry 93 Oxygen Delivery Nasal Cannula Oxygen Flow Rate 2 Fraction of Inspired Oxygen 05/31/25 13:34 05/31/25 13:40 05/31/25 14:00 Temperature 97.6 F Pulse Rate 90 96 90 Respiratory Rate 20 20 16 Blood Pressure 134/83 Pulse Oximetry 94 Oxygen Delivery Oxygen Flow Rate Fraction of Inspired Oxygen 05/31/25 16:00 05/31/25 19:41 05/31/25 20:00 Temperature Pulse Rate 92 92 77 Respiratory Rate 16 Blood Pressure Pulse Oximetry 94 Oxygen Delivery Nasal Cannula Oxygen Flow Rate 2.5 Fraction of Inspired Oxygen 28 05/31/25 20:23 05/31/25 20:38 05/31/25 20:38 Temperature 97.3 F L Pulse Rate 83 82 Respiratory Rate 20 18 Blood Pressure 133/76 Pulse Oximetry 93 95 Oxygen Delivery Nasal Cannula Oxygen Flow Rate 3 Fraction of Inspired Oxygen 05/31/25 20:46 06/01/25 00:00 06/01/25 01:39 Temperature Pulse Rate 86 75 89 Respiratory Rate 18 18 Blood Pressure Pulse Oximetry Oxygen Delivery Oxygen Flow Rate Fraction of Inspired Oxygen 06/01/25 01:44 06/01/25 03:47 06/01/25 04:00 Temperature 97.8 F Pulse Rate 87 85 82 Respiratory Rate 18 18 Blood Pressure 126/75 Pulse Oximetry 96 Oxygen Delivery Oxygen Flow Rate Fraction of Inspired Oxygen Intake/Output Intake/Output: Intake & Output 05/29/25 05/30/25 05/31/25 06/01/25 23:59 23:59 23:59 23:59 Intake Total 2502 1920 1430 Output Total 500 2400 800 Balance [facility] [address] [place] [address] Meds/Results Medications: Active Medications Generic Name Dose Route Start Last Admin Trade Name Freq PRN Reason Stop Dose Admin Albuterol 1 puff 05/28/25 09:10 05/28/25 16:23 Albuterol Sulfate (*Sp) Aerosol 1 Puff INHALATION 1 puff QID PRN Administration Shortness Of Breath Or Wheezing Albuterol/Ipratropium 3 ml 05/28/25 02:00 06/01/25 01:38 Ipratropium 0.5 Mg/Albuterol Sulfate 2.5 Mg Ampul.Neb 3 Ml INHALATION 3 ml Q6HRT SOHAM Administration Benzonatate 200 mg 05/29/25 13:00 05/31/25 17:24 Benzonatate 100 Mg Capsule PO 200 mg TID SOHAM Administration Budesonide 0.5 mg 05/29/25 10:00 05/31/25 20:36 Budesonide Respule Neb 0.5 Mg/2 Ml Amp INHALATION 0.5 mg Q12HRT SOHAM Administration Emtricitabine/Tenofovir 2 tab 05/28/25 09:00 05/31/25 09:45 Emtricitabine-Tenofovir 100 Mg-150 Mg Tablet PO 2 tab DAILY SOHAM Administration Enoxaparin Sodium 40 mg 05/31/25 09:00 05/31/25 09:46 Enoxaparin 40 Mg/0.4 Ml Syringe SUB-Q 40 mg DAILY SOHAM Administration Guaifenesin 1,200 mg 05/28/25 13:30 05/31/25 20:52 Guaifenesin 12 Hr 600 Mg Tabcr PO 1,200 mg Q12HR SOHAM Administration Cefepime HCl 2 gm/ Sodium 50 mls @ 100 mls/hr 05/28/25 10:00 06/01/25 03:48 Chloride IVPB 100 mls/hr Q8H SOHAM Administration Losartan Potassium 25 mg 05/28/25 09:00 05/31/25 09:45 Losartan Potassium 25 Mg Tablet PO 25 mg DAILY SOHAM Administration Darunavir 800 Mg 800 mg 05/28/25 15:50 05/31/25 09:45 Tablet Home Med PO 06/27/25 15:49 800 mg DAILY SOHAM Administration Ritonavir 100 Mg 100 mg 05/28/25 15:50 05/31/25 09:46 Tablet Homemed PO 06/27/25 15:49 100 mg DAILY SOHAM Administration Nystatin 5 ml 05/28/25 09:00 05/31/25 20:52 Nystatin 100,000 Units/Ml Susp 5 Ml Oral.Susp PO 5 ml QID SOHAM Administration Ondansetron HCl 4 mg 05/31/25 08:58 05/31/25 09:07 Ondansetron Hcl Odt 4 Mg Tablet PO 4 mg Q6H PRN Administration Nausea And Vomiting Perflutren Lipid Microsphere 0 ml 05/30/25 08:21 Perflutren Lipid Microspheres 1.5 Ml Vial Diluted To 10 Ml Total Volume IV PUSH 06/02/25 08:21 ONCE PRN adequate visualization Protocol Prednisone 10 mg 05/31/25 09:00 05/31/25 09:45 Prednisone 10 Mg Tablet PO 10 mg DAILY@0800 SOHAM Administration Sodium Chloride 2 spray 05/28/25 09:10 05/28/25 10:43 Saline 0.65% James Soln 44 Ml Btl NASAL 2 spray QID PRN Administration Nasal Congestion Trimethoprim/Sulfamethoxazole 2 tab 05/30/25 09:00 06/01/25 05:12 Sulfamethoxazole/Trimethoprim 800/160 Mg Ds Tablet PO 2 tab Q8HR SOHAM Administration Radiology Results: ITS Impressions Chest CTA 05/27/25 20:02 IMPRESSION: 1. New bilateral upper lobe masses, largest measuring up to 2.4 cm, concerning for bronchogenic carcinoma. Abnormal hilar lymphadenopathy, suspicious for metastatic disease. 2: Right middle lobe and lingular airspace consolidation, consistent with pneumonia. 3: No large central pulmonary embolism. Evaluation of peripheral pulmonary arteries somewhat limited due to motion artifact and contrast bolus timing. Chest X-Ray 05/30/25 09:10 Impression: Compared to the prior study probable pneumonic process appears slightly improved, there is a new small right pleural effusion. Quality VTE Prophylaxis VTE prophylaxis: pharmacologic ordered
[2025-06-01] MEDS: BUDESONIDE RESPULE NEB 0.5 MG/2 ML AMP INHALATION ×2 (07:07→19:47)
[2025-06-01 07:53] LABS: Hematocrit 37.3 % (37.0-47.0); Hemoglobin 11.5 g/dL (12.0-15.0); Immature Granulocyte Percent A 4.4 % (0-0.5); Lymphocytes Absolute Auto 2.28 K/mm3 (0.9-3.2); Mean Corpuscular HGB Conc 30.8 g/dl (32-36); Mean Corpuscular Hemoglobin 26.0 pg (26-34); Mean Corpuscular Volume 84.4 fl (80-100); Nucleated Red Blood Cells Absolute Auto 0.000 K/mm3 (0.0-0.012); Nucleated Red Blood Cells Perc 0.0 % (0.0-0.2); Platelet Count Result 361 k/mm3 (150-375); Red Blood Count 4.42 M/mm3 (4.2-5.4); White Blood Count 9.5 K/mm3 (4.5-10.0)
[2025-06-01 08:16] LABS: Alanine Aminotransferase 22 U/L (6-35); Albumin Level 3.2 g/dL (3.5-5.1); Alkaline Phosphatase 66 U/L (38-126); Anion Gap 2 mmol/L (4-12); Aspartate Amino Transferase 26 U/L (14-36); Bilirubin,Total < 0.1 mg/dL (0.2-1.3); Blood Urea Nitrogen 19 mg/dL (7-17); Calcium 8.4 mg/dL (8.4-10.2); Carbon Dioxide 35 mmol/L (22-30); Chloride 93 mmol/L (98-107); Estimated CRCL calculation 56 ml/min; Estimated Glomerular Filt Rate > 60; Glucose 85 mg/dL (65-110); Potassium 4.0 mmol/L (3.4-5.0); Sodium 130 mmol/L (137-145); Total Protein 6.3 g/dL (6.3-8.2)
--- NOTE | 2025-06-01 08:29 | PM.PNPUL ---
Progress Note: A&P Assessment and Plan (1) COPD (chronic obstructive pulmonary disease): Code(s): J44.9 - Chronic obstructive pulmonary disease, unspecified Status: Acute Assessment and Plan: Regarding her COPD the patient was diagnosed about 5 years ago. She has been on oxygen 2 years. She has been on home prednisone 10 mg a day for 2-3 years and has never been attempted to be weaned off. PFTs 06/21/2024 with an FEV1 of 0.82 L, 35% predicted, ratio 39%, hyperinflation, severely decreased DLCO at remain moderately decreased when adjusted for alveolar volume and in comparison to 08/05/2022 there is worsening in her FVC, FEV1 and diffusing capacity and increase in her total lung capacity, functional residual capacity and residual volume. She tells me she uses 2 L at rest, 3 L with activity and 2-1/2 L when she sleeps. 2 L NC ABG 04/04/2024 7.43/41/69. On a good day she can walk 1.5 room lengths. Patient was initially wheezing but currently has no wheezes. ABG on 3 L in the emergency room 7.39/60/51. 05/28/25: Plan: Patient receive Solu-Medrol 60 mg IV q.6 hours x3 doses, last at 5:40 AM this morning. Given her bilateral pneumonia I will attempt to quickly wean her steroids back to her baseline and will place her on 40 mg p.o. q.day starting on 05/29/2025. I will continue ipratropium and albuterol nebulizers q.6 hours. This will provide adequate beta agonist and muscarinic antagonist and I will discontinue her home Advair and incruse ellipta. Will start guaifenesin 1200 mg p.o. b.i.d.. I will treat the patient for pneumonia and or COPD exacerbation and eventually repeat a blood gas to determine if she remains hypercarbic. Goal saturation 90-94%, adjust oxygen accordingly. 05/29/25: Patient with wheezes left upper lobe but otherwise states her breathing is improving. Plan: The patient is receiving prednisone 40 mg p.o. today. I will decrease her to prednisone 10 mg p.o. q.day starting 05/30/2025. I will start budesonide 500 mcg nebulizers b.i.d. today. Continue ipratropium and albuterol nebulizers q.6 hours. Continue guaifenesin 1200 p.o. b.i.d.. Will add Tessalon Perles 200 mg p.o. t.i.d. for her cough. 05/30/25: No wheezes today. She has persistent coughing. She has minimal phlegm and no difficulty expectorating. Plan: I will continue prednisone 40 mg p.o. q.day day 3 of steroids. Continue DuoNebs q.6, budesonide nebs b.i.d., guaifenesin 1200 p.o. b.i.d. and Tessalon Perles 200 t.i.d.. Later in the day ABG on 2 L nasal cannula 7./. 05/31/25: No wheezes today. Cough is improved. No difficulty expectorating. Plan: From a COPD perspective, I have decreased the prednisone to 10 mg p.o. q.day, continue DuoNebs q.6, budesonide nebs b.i.d., guaifenesin 1200 p.o. b.i.d. and Tessalon Perles 200 t.i.d.. Patient remains with hypercarbic respiratory failure but this has improved as she is improving from her pneumonia. I will continue to follow the patient clinically and repeat a blood gas in the future to determine if she remains hypercarbic. I will not initiate noninvasive ventilation at night at this time. 06/01/2025: No wheezing today, breathing continues to improve. plan: I would like to discontinue patient's prednisone from a COPD perspective. I will decrease to 7.5 p.o. q.day today and we continue this for 1 week and then decrease to 5 mg p.o. q.day, she will need a slower outpatient steroid taper. Patient is approaching discharge and from a COPD perspective she should be on these COPD medicines on discharge. Prednisone 7.5 mg p.o. q.day through 06/07/2025 then 5 mg p.o. q.day Symbicort 80-4.5 at 2 puffs b.i.d. Spiriva Respimat 1.25 mcg at 2 puffs q.day Rescue albuterol inhaler 2 puffs q.4 hours p.r.n. shortness of breath or wheezing Rescue albuterol nebulizer 2.5 mg Q 4 hours p.r.n. shortness of breath or wheezing Oxygen per formal home O2 assessment which I have ordered today. When she naps or sleeps: Oxygen 4 L nasal cannula. Outpatient antibiotics per infectious disease consult team Regarding her lung mass: I discussed with Dr. Owen, [facility] [place], and he prefers her to complete treatment for pneumonia and then his staff will call him to set up an outpatient bronchoscopy with EBUS. Patient's best phone number is [phone] and I forwarded this phone number to Dr. Owen. I discussed this plan with the patient again today. Patient tells me she will follow-up Dr. Estrada, [facility]. I have explained to the patient that we are trying to wean her prednisone but this will need to be done as an outpatient and that she should have a repeat blood gas in approximately 3-4 weeks after she recovers from her pneumonia to reassess her chronic hypercarbic respiratory failure. Discussed with Dr. Vigil. Will sign off, call with questions. (2) Community acquired pneumonia: Qualifiers: Laterality: unspecified laterality Qualified Code(s): J18.9 - Pneumonia, unspecified organism Code(s): J18.9 - Pneumonia, unspecified organism Status: Acute Assessment and Plan: Patient with a history of COPD and severe apical predominant panlobular emphysema, HIV positive, treated for pneumonia ceftriaxone and azithromycin in the hospital from 04/12 to 04/16 and discharged on Augmentin. She did improved back to her baseline. Currently she has 7 days of shortness of breath, change in her phlegm, right-sided pleuritic chest pain, worsening cough and shortness of breath with a leukocytosis at 12.[address] angiogram of the chest that shows infiltrates and consolidation in the right middle lobe and lingula. She has MRSA swab positive, COVID, influenza, RSV RT PCR assay negative. 05/28/25 Plan: Patient was changed to vancomycin, cefepime and azithromycin was continued. She is feeling better today and says that her pleuritic pain is now resolved, her phlegm is gone from green to yellow, she is afebrile but remains with a leukocytosis 13.7. I have sent for urine pneumococcal, urine Legionella, extended respiratory pathogen panel and serum mycoplasma IgM. Infectious Disease has been consulted. I will attempt to wean her steroids quickly back to her baseline of 10 mg of prednisone a day. Will continue these antibiotics currently. Id consult pending for management of antibiotics as well as antiretrovirals. 05/29/25: patient tells me she is improved. Overall she states she is breathing 60% back to her normal. Her cough is increased since yesterday but it is dry and her phlegm is back to her baseline. She has no hemoptysis, fever, chills. Currently she is on 3 L nasal cannula with saturations 94% I decreased her to 2 L and her saturations were 93%. She is afebrile. White blood cell count 15.5, creatinine 0.39. Cumulative she is +2.3 L since admission. Plan: patient improving on vancomycin, cefepime and azithromycin all started on 05/28/2025. respiratory pathogen panel, urine pneumococcal, urine Legionella, urine blasto pending. Oxygenation improving with goal saturation 90-94%. 05/30/2025: Patient tells me she continues to slowly improve. States she feels okay. Breathing is 70% back to her normal. She has a severe cough with light yellow phlegm and no hemoptysis. When I enter the room she was sleeping on 3 L nasal cannula and I decreased her to room air and after 6 minutes her saturations decreased to 89%. I placed her on 2 L nasal cannula her saturations were 95%. White blood cell count 11.9, creatinine 0.41. Procalcitonin was 0 on 05/27/2025 and is 0 today. Her COPD was 14.7 on 05/28/2025 and today is 3.1. Her BNP was 514 on 05/27/2025 and today is 805. CD4 count is 56. Patient had an overnight oximetry on 3 L nasal cannula with recording duration of 6 hours and 9 minutes. Average saturation 95%. Low saturation 85%. Time with saturation less than or equal to 88% was 13 minutes, oxygen desaturation index 1.2. Yesterday she was positive 2.0 L, cumulative she is positive 4.3 L since admission, Her weight today is 44 kg. Plan: slowly improving on vancomycin, cefepime and has completed azithromycin. Respiratory pathogen panel negative. Urine Legionella negative, urine pneumococcal, sputum for fungus, sputum for PJP, mycoplasma IgM urine histo all pending. Her CRP is improved, she remains afebrile and her white blood cell count is improving. I will perform a chest x-ray today and an echocardiogram to assess cardiac function. later in the day chest x-ray with minimally improved bibasilar infiltrates. Later in the day started on Septra per ID. Vancomycin discontinued 05/31/2025: Patient tells me she slept well. She is 75% breathing back to her normal. Her cough is better today. She has a little bit of light yellow phlegm. No wheezing. When I enter the room she was on 4 L with saturations 97%. I decreased her to 1 L and her saturations were 93%. she is afebrile. White blood cell count 10.0, creatinine 0.52. Yesterday she was -480 mL, cumulative she was positive 3.6 L since admission. Patient had an overnight oximetry on 4 L nasal cannula with recording duration of 5 hours and 20 minutes, average saturation 93%. Low saturation 88%. Time with saturation less than or equal to 88% was 2 minutes, oxygen desaturation index 2.4. Plan: patient is afebrile, leukocytosis improving and respiratory status slowly improving. Currently on cefepime and Septra. Patient currently on 1 L oxygen and her baseline oxygen was 2 L at home. Patient has been on Solu-Medrol followed by prednisone 40 mg p.o. since 05/27/2025, today is day 4. I will defer steroids for PJP to Infectious Disease. As below from a COPD perspective I have decreased her to prednisone 10 which is her home dose. Urine pneumococcal, sputum for fungus, sputum for PJP, mycoplasma IgM urine histo all pending. 06/01/25: patient said she felt really well this morning but then the blood draw clinical pharmacy technician came into the room and had strong perfume and this caused her to be nauseous and have some shortness of breath. I turned the fan on and ventilated the room and over the next 5 minutes the patient was feeling better. Overall she says she continues to improve and is 85% back to her baseline. She slept well. She has a normal cough with a little bit of phlegm and no hemoptysis. She is afebrile. When I enter the room she was on 3 L nasal cannula saturations 94%. I decreased her to 2 L and her saturations were 92%. Plan: Patient continues to improve and currently on cefepime started 05/28/2025 and Bactrim started 05/30/2025. I will defer steroid dose for possible PJP to Infectious Disease. I will continue to decrease her steroids from a COPD perspective to 7.5 today. (3) Lung mass: Code(s): R91.8 - Other nonspecific abnormal finding of lung field Status: Acute Assessment and Plan: Patient with 55 pack year tobacco use, quit in 2021. CT angiogram of the chest was reviewed with Radiology and was negative for PE, and compared to 02/01/2024 there was unchanged upper lobe calcified granulomas and severe panlobular emphysema, there were new right middle lobe and lingula dense infiltrates with consolidation and a new right upper lobe 2.4 cm nodule with right hilar lymph node measuring 4.1 x 2.1 cm that was not associated with infiltrates. There is a new mass in the lingula measuring 2 x 1.1 cm and this was associated with adjacent infiltrates. 05/28/2025: Plan: Patient does desire further workup of this right lung mass. patient cannot undergo a CT-guided biopsy at [facility] as she is on supplemental oxygen and deemed too high risk to perform the procedure at [place]. Furthermore the mass is centrally located. Patient has a right hilar mass and ideally she would undergo bronchoscopy with EBUS and sampling of the right hilar mass which should be performed after she has been treated for her acute pneumonia. Bronchoscopy with EBUS cannot be done at [facility]. Patient is willing to be referred to a higher level of care facility and at this point will treat the patient for her acute pneumonia and when she is recovered will refer to [facility] [place] in [place], Dr. Owen, as an outpatient. 05/29: I have pushed the CT scan from 05/27/2025 and 02/01/2024 to [facility] [place] Plan: I discussed with Dr. Owen and he prefers her to complete treatment for pneumonia and then his staff will call him to set up an outpatient bronchoscopy with EBUS. Patient's best phone number is [phone] and I forwarded this phone number to him. Subjective Date/time seen: 06/01/25 08:29 Interval history: 02/20/2025: This is a new pulmonary consult for COPD and lung mass 65-year-old with a history of GOLD grade 3 group E COPD on home oxygen 2 L and home prednisone 10 a day, HIV on antiretrovirals, HTN. Regarding her COPD the patient was diagnosed about 5 years ago. She has been on oxygen 2 years. She has been on home prednisone 10 mg a day for 2-3 years and has never been attempted to be weaned off. PFTs 06/21/2024 with an FEV1 of 0.82 L, 35% predicted, ratio 39%, hyperinflation, severely decreased DLCO at remain moderately decreased when adjusted for alveolar volume and in comparison to 08/05/2022 there is worsening in her FVC, FEV1 and diffusing capacity and increase in her total lung capacity, functional residual capacity and residual volume. She tells me she uses 2 L at rest, 3 L with activity and 2-1/2 L when she sleeps. 2 L NC ABG 04/04/2024 7.43/41/69. On a good day she can walk 1.5 room lengths. patient smoked tobacco from age 7 to age 62 at 1 pack per day. 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 She lives in [place] but never worked in the [employer], denies sand blasting, welding, asbestos were, professional painting, mining, quarry work or construction work. Patient is HIV and previously saw Dr. Franco and was on antiretroviral medications and she tells me her levels were undetectable. Dr. Franco than retired and she could not find a physician but continued to take medicines. Currently she is seeing a PCP who prescribes her medicines. She does not know the status of her viral load. Patient states that she does have continued problems with thrush. Recently admitted to [facility] 04/12/2025 through 04/16/2025. treated for COPD exacerbation and pneumonia. Discharged on Augmentin and to continue her Symbicort, Spiriva and prednisone 10 Ed. continue her retrovirals. Patient tells me she her got back to her normal from a respiratory viewpoint. Approximately 7 days ago the patient developed shortness of breath initially with no change in her phlegm. over the last 3 days she developed right-sided pleuritic chest pain. Over the last 2 days she developed cough with worsening phlegm that was now dark green. She had increased wheezing and shortness of breath. Her dyspnea on exertion worsened and she presented to the emergency department. in the emergency in her blood pressure is 159/98, heart rate 102, respirations 35, she is placed on 5 L nasal cannula saturations 96%. She had end expiratory wheezes. Procalcitonin 0.0. BNP 514. MRSA nasal swab positive. COVID influenza and RSV RT PCR assay negative. CT angiogram of the chest was reviewed with Radiology and was negative for PE, and compared to 02/01/2024 there was unchanged upper lobe calcified granulomas and severe panlobular emphysema, there were new right middle lobe and lingula dense infiltrates with consolidation and a new right upper lobe 2.4 cm nodule with right hilar lymph node measuring 4.1 x 2.1 cm that was not associated with infiltrates. There is a new mass in the lingula measuring 2 x 1.1 cm and this was associated with adjacent infiltrates. She was treated for COPD exacerbation and pneumonia with Solu-Medrol, bronchodilators, ceftriaxone and azithromycin. ceftriaxone and azithromycin were changed to cefepime and vanco on admission to the hospital. 05/28/2025: The patient tells me she is feeling better, she has 50% back to her normal, her phlegm is gone from dark green to yellow and her right-sided pleuritic pain is resolved. She is afebrile. Currently she is on 3 L nasal cannula saturations 93%. Her white blood cell count is 13.7, her creatinine is 0.39, her CRP is 14.7. 05/29/25: patient tells me she is improved. Overall she states she is breathing 60% back to her normal. Her cough is increased since yesterday but it is dry and her phlegm is back to her baseline. She has no hemoptysis, fever, chills. Currently she is on 3 L nasal cannula with saturations 94% I decreased her to 2 L and her saturations were 93%. She is afebrile. White blood cell count 15.5, creatinine 0.39. Cumulative she is +2.3 L since admission. 05/30/2025: Patient tells me she continues to slowly improve. States she feels okay. Breathing is 70% back to her normal. She has a severe cough with light yellow phlegm and no hemoptysis. When I enter the room she was sleeping on 3 L nasal cannula and I decreased her to room air and after 6 minutes her saturations decreased to 89%. I placed her on 2 L nasal cannula her saturations were 95%. White blood cell count 11.9, creatinine 0.41. Procalcitonin was 0 on 05/27/2025 and is 0 today. Her COPD was 14.7 on 05/28/2025 and today is 3.1. Her BNP was 514 on 05/27/2025 and today is 805. Patient had an overnight oximetry on 3 L nasal cannula with recording duration of 6 hours and 9 minutes. Average saturation 95%. Low saturation 85%. Time with saturation less than or equal to 88% was 13 minutes, oxygen desaturation index 1.2. Yesterday she was positive 2.0 L, cumulative she is positive 4.3 L since admission, Her weight today is 44 kg. Later in the day ABG on 2 L nasal cannula 7.43. Later in the day started on per ID. 05/31/2025: Patient tells me she slept well. She is 75% breathing back to her normal. Her cough is better today. She has a little bit of light yellow phlegm. No wheezing. When I enter the room she was on 4 L with saturations 97%. I decreased her to 1 L and her saturations were 93%. she is afebrile. White blood cell count 10.0, creatinine 0.52. Yesterday she was -480 mL, cumulative she was positive 3.6 L since admission. Patient had an overnight oximetry on 4 L nasal cannula with recording duration of 5 hours and 20 minutes, average saturation 93%. Low saturation 88%. Time with saturation less than or equal to 88% was 2 minutes, oxygen desaturation index 2.4. 06/01/25: patient said she felt really well this morning but then the blood draw clinical pharmacy technician came into the room and had strong perfume and this caused her to be nauseous and have some shortness of breath. I turned the fan on and ventilated the room and over the next 5 minutes the patient was feeling better. Overall she says she continues to improve and is 85% back to her baseline. She slept well. She has a normal cough with a little bit of phlegm and no hemoptysis. She is afebrile. When I enter the room she was on 3 L nasal cannula saturations 94%. I decreased her to 2 L and her saturations were 92%. DATA: 05/30/25: Echo Summary 1. Complete two-dimensional, color flow and Doppler transthoracic echocardiogram is performed. 2. Left ventricular chamber dimension is mildly enlarged. 3. Left ventricular systolic function is mildly reduced, estimated at 45-50. 4. There is mildly increased left ventricular wall thickness. 5. The left ventricular diastolic function is grade I diastolic dysfunction. 6. Left atrial chamber dimension is mildly enlarged. 7. There is mild aortic valve regurgitation. 8. There is moderate mitral valve regurgitation. 9. The mitral valve has thickened leaflets. 10. There is mild tricuspid valve regurgitation. Right Ventricle Right ventricular chamber dimension is normal. Right ventricular systolic function is normal. Left Atria Left atrial chamber dimension is mildly enlarged. Right Atria Right atrial chamber dimension is normal. RVSP 32. 05/27/25: EXAMINATION: CTA chest PE protocol INDICATION: Right-sided pleuritic chest pain. COMPARISON: CT dated 02/01/2024. FINDINGS: Study is technically adequate. No evidence for pulmonary embolism. There is bilateral hilar lymphadenopathy. There is subcarinal lymphadenopathy. Right hilar lymph node measuring 4.1 x 2.1 cm. No significant pleural or pericardial effusion. There is a densely calcified granuloma in the right upper lobe. There is scarring in the left upper lobe with calcified granuloma. There is a new mass in the right upper lobe, image 69, measuring 2.4 x 1.8 cm, concerning for bronchogenic carcinoma. There is a new mass in the lingula with irregular configuration measuring 2 x 1.1 cm. There is right middle lobe and lingular airspace consolidation. No pneumothorax. There is emphysema. There is 2.9 cm hypodense mass of the right hepatic lobe with marginal enhancement. Mild thoracic spondylosis with accentuated kyphosis. There is a second peripherally enhancing mass in the left hepatic lobe measuring 1.8 cm. IMPRESSION: 1. New bilateral upper lobe masses, largest measuring up to 2.4 cm, concerning for bronchogenic carcinoma. Abnormal hilar lymphadenopathy, suspicious for metastatic disease. 2: Right middle lobe and lingular airspace consolidation, consistent with pneumonia. 3: No large central pulmonary embolism. Evaluation of peripheral pulmonary arteries somewhat limited due to motion artifact and contrast bolus timing. 06/21/2024: This is a pulmonary function test with spirometry, plethysmography and diffusing capacity. The test was performed and results interpreted in accordance with the 2019 and 2005 ATS/ERS Task Force guidelines respectively using the Global Lung Function Initiative-2012 reference equations. Patient demonstrated good effort and cooperation. Reproducibility criteria were met. The quality of the spirometry maneuver was Grade A. Findings: Spirometry: There is decreased maximal expiratory airflow at all lung volumes with concave expiratory flow tracing. The FVC is 2.09 L, 70% predicted. The FEV1 is 0.82 L, 35% predicted. The FEV1: FVC ratio is 39%. Plethysmography: The total lung capacity is 6.74 L, 137% predicted. The functional residual capacity is 4.62 L, 167% predicted. The residual volume is 4.59 L, 232% predicted. The residual volume: Total lung capacity ratio 68%. Diffusing capacity: The diffusing capacity unadjusted for hemoglobin and carboxy hemoglobin is 6.1, 29% predicted. The diffusing capacity adjusted for alveolar volume is 2.06, 46% predicted. In comparison to previous pulmonary function testing on 08/05/2022, the pre bronchodilator FVC has decreased from 2.80 L to 2.09 L. The pre bronchodilator FEV1 has decreased from 1.19 L to 0.82 L. The total lung capacity is unchanged from 6.30 L to 6.74 L. The functional residual capacity is increased from 3.81 L to 4.62 L. the residual volume has increased from 3.45 L to 4.59 L. the residual volume: Total lung capacity ratio has increased from 55% to 68%. The diffusing capacity unadjusted for hemoglobin and carboxyhemoglobin is decreased from 9.1 to 6.1. The diffusing capacity adjusted for alveolar volume has decreased from 2.55 to 2.06 Impression: There is a severe obstructive abnormality. The increase in residual volume to total lung volume ratio is consistent with hyperinflation from an obstructive abnormality. The diffusing capacity unadjusted for hemoglobin and carboxyhemoglobin is severely decreased and remains moderately decreased when adjusted for alveolar volume. In compared to previous pulmonary function testing on 08/05/2022, there has been a greater than anticipated time dependent decrease in the FVC, FEV1, and diffusing capacity. There has been a greater than anticipated time dependent increase in the total lung capacity, functional residual capacity, residual volume, and the residual volume: Total lung capacity ratio. clinical correlation is recommended. 03/02/24: EXAMINATION: MR abdomen wo/w con INDICATION: Liver mass. TECHNIQUE: Magnetic resonance imaging (MRI) of the abdomen was performed without and with 9 mL MultiHance intravenous contrast. COMPARISON: Chest CT 02/01/2024 FINDINGS: There are 5 hemangiomas in the liver measuring up to 3.2 cm characterized by interrupted peripheral puddling of contrast. There is an 8 mm arterially hyperenhancing mass in left hepatic lobe without washout, likely a hemangioma or focal nodular hyperplasia. There are a few cysts in the liver measuring up to 7 mm. The gallbladder, spleen, pancreas, adrenal glands, and kidneys are normal. There are no dilated loops of bowel. IMPRESSION: 1. Benign masses in the liver. 02/01/2024: CT Scan of the Chest without Contrast: Clinical Indication: Lung cancer screening, nicotine dependence Technique: Contiguous sections were acquired throughout the chest without intravenous contrast. Dose reduction technique was used on this scan by utilizing automated exposure control and iterative reconstruction technique. The dose-length product (DLP) was 66.12 mGy-cm. Findings: There is no evidence of any significant mediastinal, hilar or axillary lymphadenopathy. Coronary artery calcifications are present.. There is no evidence of pleural or pericardial effusion. There is severe emphysema with biapical scarring and biapical calcified granulomas. There is a 4 mm right upper lobe pulmonary nodule (axial image 52). Images through the upper abdomen reveal 2.9 cm hypodense, noncystic hepatic mass in the right hepatic lobe there is an additional 1.6 cm hypodense mass in the anterior left hepatic lobe.. Chronic compression deformity of L1 noted. Impression: Lung RADS 2-S: Benign appearance. 12 month follow-up screening CT advised. 2 hypodense hepatic masses, measuring 2.9 cm and 1.6 cm in size respectively. These are indeterminate. Pre and postcontrast hepatic MR recommended to further assess. 08/05/2022: This is a 6 minute walk test. The test was performed and interpreted in accordance with the 2014 ERS/ATS task force guidelines. Findings: The patient's resting room air oxygen saturation measured by pulse oximetry was 95%, the heart rate was 68 bpm, and the modified Stevie dyspnea score was 0. Patient ambulated for 366 meters and oxygen saturation remained 94 to 96%. At the end of the study the heart rate was 74 bpm and the modified Stevie dyspnea score was 0. The patient did not qualify for supplemental oxygen at rest or with ambulation. There are no prior studies for comparison. 08/05/2022: Echo Summary 1. Complete two-dimensional, color flow and Doppler transthoracic echocardiogram is performed. 2. Left ventricular systolic function is normal, estimated at 50-55%. 3. The left ventricular diastolic function is grade I diastolic dysfunction. 4. Right ventricular systolic function is normal. 5. There is mild mitral valve regurgitation. 6. There is mild tricuspid valve regurgitation. Right Ventricle Right ventricular chamber dimension is normal. Right ventricular systolic function is normal. Right Atria Right atrial chamber dimension is normal. Atrial Septum Intact interatrial septum visualized by color flow imaging. Review of Systems Constitutional: Constitutional: Reports no additional constitutional complaints Eyes: Eyes: Reports no additional eye complaints ENT: Reports system reviewed and no additional complaints, except as documented Cardiovascular: Cardiovascular: Reports no additional cardiovascular complaints Respiratory: Respiratory: Reports no additional respiratory complaints Gastrointestinal: Gastrointestinal: Reports no additional gastrointestinal complaints Musculoskeletal: Musculoskeletal: Reports no additional musculoskeletal complaints Neurologic: Reports system reviewed and no additional complaints, except as documented Psychiatric: Psychiatric: Reports no additional psychiatric complaints Endocrine: Endocrine: Reports no additional endocrine complaints Hematologic/Lymphatic: Hematologic/Lymphatic: Reports no additional hematologic/lymphatic complaints Allergic/Immunologic: Allergic/Immunologic: Reports no additional allergic/immunologic complaints Exam Const: General: cooperative, healthy appearing and comfortable Orientation/consciousness: oriented to person, oriented to place and oriented to time HENMT: Head: normal to inspection Ears: hearing grossly normal bilaterally Eyes: General: appearance normal, both eyes and all related structures Neck: Neck: normal visual inspection Chest: Chest palpation & inspection: normal inspection of the chest Resp: Effort & Inspection: normal respiratory effort and able to speak in complete sentences Auscultation: crackles, no rales, no rhonchi, wheezes and lung sounds not diminished Other: No Bibasilar crackles. no wheezes today Cardio: Jugular venous distension: no JVD GI: Inspection: normal to inspection Skin: General skin exam: normal color Neuro: General: oriented to person, oriented to place and oriented to time Extrem: General: normal to inspection Psych: Appearance: grossly normal Objective Data Vital Signs Vital Signs: Vital Signs - 24 hr 05/31/25 09:45 05/31/25 12:00 05/31/25 13:34 Temperature Pulse Rate 77 90 Respiratory Rate 20 Blood Pressure Pulse Oximetry 93 Oxygen Delivery Nasal Cannula Oxygen Flow Rate 2 Fraction of Inspired Oxygen 05/31/25 13:40 05/31/25 14:00 05/31/25 16:00 Temperature 36.4 C Pulse Rate 96 90 92 Respiratory Rate 20 16 Blood Pressure 134/83 Pulse Oximetry 94 Oxygen Delivery Oxygen Flow Rate Fraction of Inspired Oxygen 05/31/25 19:41 05/31/25 20:00 05/31/25 20:23 Temperature 36.3 C L Pulse Rate 92 77 83 Respiratory Rate 16 20 Blood Pressure 133/76 Pulse Oximetry 94 93 Oxygen Delivery Nasal Cannula Oxygen Flow Rate 2.5 Fraction of Inspired Oxygen 05/31/25 20:38 05/31/25 20:38 05/31/25 20:46 Temperature Pulse Rate 82 86 Respiratory Rate 18 18 Blood Pressure Pulse Oximetry 95 Oxygen Delivery Nasal Cannula Oxygen Flow Rate 3 Fraction of Inspired Oxygen 06/01/25 00:00 06/01/25 01:39 06/01/25 01:44 Temperature Pulse Rate 75 89 87 Respiratory Rate 18 18 Blood Pressure Pulse Oximetry Oxygen Delivery Oxygen Flow Rate Fraction of Inspired Oxygen 06/01/25 03:47 06/01/25 04:00 06/01/25 07:08 Temperature 36.6 C Pulse Rate 85 82 88 Respiratory Rate 18 20 Blood Pressure 126/75 Pulse Oximetry 96 93 Oxygen Delivery Nasal Cannula Oxygen Flow Rate 3 Fraction of Inspired Oxygen 06/01/25 07:09 Temperature Pulse Rate 88 Respiratory Rate 20 Blood Pressure Pulse Oximetry Oxygen Delivery Oxygen Flow Rate Fraction of Inspired Oxygen Intake/Output Intake/Output: Intake & Output 05/29/25 05/30/25 05/31/25 06/01/25 23:59 23:59 23:59 23:59 Intake Total 2502 1920 1430 Output Total 500 2400 800 Balance 2001 -959 156 Meds/Results Medications: Active Medications Generic Name Dose Route Start Last Admin Trade Name Freq PRN Reason Stop Dose Admin Albuterol 1 puff 05/28/25 09:10 05/28/25 16:23 Albuterol Sulfate (*Sp) Aerosol 1 Puff INHALATION 1 puff QID PRN Administration Shortness Of Breath Or Wheezing Albuterol/Ipratropium 3 ml 05/28/25 02:00 06/01/25 07:06 Ipratropium 0.5 Mg/Albuterol Sulfate 2.5 Mg Ampul.Neb 3 Ml INHALATION 3 ml Q6HRT SOHAM Administration Benzonatate 200 mg 05/29/25 13:00 05/31/25 17:24 Benzonatate 100 Mg Capsule PO 200 mg TID SOHAM Administration Budesonide 0.5 mg 05/29/25 10:00 06/01/25 07:07 Budesonide Respule Neb 0.5 Mg/2 Ml Amp INHALATION 0.5 mg Q12HRT SOHAM Administration Emtricitabine/Tenofovir 2 tab 05/28/25 09:00 05/31/25 09:45 Emtricitabine-Tenofovir 100 Mg-150 Mg Tablet PO 2 tab DAILY SOHAM Administration Enoxaparin Sodium 40 mg 05/31/25 09:00 05/31/25 09:46 Enoxaparin 40 Mg/0.4 Ml Syringe SUB-Q 40 mg DAILY SOHAM Administration Cefepime HCl 2 gm/ Sodium 50 mls @ 100 mls/hr 05/28/25 10:00 06/01/25 03:48 Chloride IVPB 100 mls/hr Q8H SOHAM Administration Losartan Potassium 25 mg 05/28/25 09:00 05/31/25 09:45 Losartan Potassium 25 Mg Tablet PO 25 mg DAILY SOHAM Administration Darunavir 800 Mg 800 mg 05/28/25 15:50 05/31/25 09:45 Tablet Home Med PO 06/27/25 15:49 800 mg DAILY SOHAM Administration Ritonavir 100 Mg 100 mg 05/28/25 15:50 05/31/25 09:46 Tablet Homemed PO 06/27/25 15:49 100 mg DAILY SOHAM Administration Nystatin 5 ml 05/28/25 09:00 05/31/25 20:52 Nystatin 100,000 Units/Ml Susp 5 Ml Oral.Susp PO 5 ml QID SOHAM Administration Ondansetron HCl 4 mg 05/31/25 08:58 05/31/25 09:07 Ondansetron Hcl Odt 4 Mg Tablet PO 4 mg Q6H PRN Administration Nausea And Vomiting Perflutren Lipid Microsphere 0 ml 05/30/25 08:21 Perflutren Lipid Microspheres 1.5 Ml Vial Diluted To 10 Ml Total Volume IV PUSH 06/02/25 08:21 ONCE PRN adequate visualization Protocol Prednisone 7.5 mg 06/01/25 08:30 Prednisone 2.5 Mg Tablet PO DAILY@0800 SOHAM Sodium Chloride 2 spray 05/28/25 09:10 05/28/25 10:43 Saline 0.65% James Soln 44 Ml Btl NASAL 2 spray QID PRN Administration Nasal Congestion Trimethoprim/Sulfamethoxazole 2 tab 05/30/25 09:00 06/01/25 05:12 Sulfamethoxazole/Trimethoprim 800/160 Mg Ds Tablet PO 2 tab Q8HR SOHAM Administration Radiology Results: ITS Impressions Chest CTA 05/27/25 20:02 IMPRESSION: 1. New bilateral upper lobe masses, largest measuring up to 2.4 cm, concerning for bronchogenic carcinoma. Abnormal hilar lymphadenopathy, suspicious for metastatic disease. 2: Right middle lobe and lingular airspace consolidation, consistent with pneumonia. 3: No large central pulmonary embolism. Evaluation of peripheral pulmonary arteries somewhat limited due to motion artifact and contrast bolus timing. Chest X-Ray 05/30/25 09:10 Impression: Compared to the prior study probable pneumonic process appears slightly improved, there is a new small right pleural effusion. Labs Labs: Laboratory Results - last 24 hr 06/01/25 07:32 WBC 9.5 RBC 4.42 Hgb 11.5 L Hct 37.3 MCV 84.4 MCH 26.0 MCHC 30.8 L RDW 16.2 H Plt Count 361 MPV 8.8 Immature Gran % (Auto) 4.4 H Neut % (Auto) 65.7 Lymph % (Auto) 23.9 [place] % (Auto) 4.8 Eos % (Auto) 0.8 Baso % (Auto) 0.4 Lymph # (Auto) 2.28 [place] # (Auto) 0.5 Eos # (Auto) 0.1 Baso # (Auto) 0.0 Abs Immat Gran (auto) 0.42 H Absolute Neuts (auto) 6.3 Absolute Nucleated RBC 0.000 Nucleated RBC % 0.0 Sodium 130 L Potassium 4.0 Chloride 93 L Carbon Dioxide 35 H Anion Gap 2 L BUN 19 H Creatinine 0.61 L Estim Creat Clear Calc 56 Estimated GFR > 60 Glucose 85 Calcium 8.4 Total Bilirubin < 0.1 L AST 26 ALT 22 Alkaline Phosphatase 66 Total Protein 6.3 Albumin 3.2 L
[2025-06-01] MEDS: BENZONATATE 100 MG CAPSULE 200 MG PO ×3 (09:32→16:52)
[2025-06-01] MEDS: LOSARTAN POTASSIUM 25 MG TABLET PO (09:32)
[2025-06-01] MEDS: EMTRICITABINE-TENOFOVIR 100 MG-150 MG TABLET 2 TAB PO (09:33)
[2025-06-01] MEDS: ENOXAPARIN 40 MG/0.4 ML SYRINGE SUB-Q (09:33)
[2025-06-01] MEDS: NYSTATIN 100,000 UNITS/ML SUSP 5 ML ORAL.SUSP PO ×4 (09:33→20:50)
[2025-06-01] MEDS: RITONAVIR 100 MG 100 EACH PO (09:34)
[2025-06-01] MEDS: DARUNAVIR 800 MG 800 EACH PO (09:35)
[2025-06-01 09:39] LABS: NT Pro B Type Natriuretic Pept 170 pg/mL (19.9-100)
--- NOTE | 2025-06-01 10:24 | P.CONCA_ITS ---
Assessment and Plan Assessment and plan (1) Systolic heart failure: Code(s): I50.20 - Unspecified systolic (congestive) heart failure Status: Acute Plan 65-year-old woman with chronic hypoxic respiratory failure on home oxygen, COPD, HIV, and hypertension recently presented with shortness of breath New onset cardiomyopathy -she does not appear to be in heart failure -given her cardiomyopathy, would continue losartan 25 mg p.o. daily and add metoprolol succinate 25 mg p.o. daily -he can trial low-dose diuretics if shortness of breath worsens Can follow up outpatient History of Present Illness History of Present Illness Consult date/time: 06/01/25 10:24 Requesting physician: Andrzej Vigil PA-C Consult reason: congestive heart failure Reason For Visit: COPD, pneumonia Narrative: 65-year-old woman with chronic hypoxic respiratory failure on home oxygen, COPD, HIV, and hypertension recently presented with shortness of breath. She noticed that her shortness breath has been worsening over the last 6 months. She has had associated productive cough. She does notice some slight degree of orthopnea. No lower extremity swelling. Denies any syncopal events or chest discomfort. Her functional status has declined to the point where she no longer is able to ambulate outside of her house. She however can make her way around the house without significant shortness of breath. However if she needs to do any further strenuous tasks did decide her house, she would require oxygen. No chest pain. Review of Systems 2 Cardiovascular: Cardiovascular: Reports as per HPI Respiratory: Respiratory: Reports as per HPI [facility] Past Medical History Medical History (Updated 06/01/25 @ 10:38 by Jack Barragan MD) Diastolic dysfunction Without diagnosis of CHF. Echo 08/2022: EF 50 55%, grade 1 diastolic dysfunction, normal right ventricular systolic function, mild mitral and tricuspid valve regurgitation Rupture long head biceps tendon Chronic steroid use 10 mg prednisone daily Essential hypertension Chronic hypoxic respiratory failure, on home oxygen therapy Cavernous hemangioma HIV (human immunodeficiency virus infection) COPD (chronic obstructive pulmonary disease) Surgical History Surgical History History of tonsillectomy History of hysterectomy Family History Family History Grandparent Diabetes mellitus Mother Diabetes mellitus Social History Social History (Updated 05/27/25 @ 23:55 by Char Sierra DO) Social History: She lives at home with her . She states that they been for few years. Her daughter recently moved in with the patient's 2 grand children and the daughters 2 dogs and 1 cat. She reports she used to smoke 1 pack of cigarettes per day from the time she was 7 years old in till 2020. She denies any illicit substance use. It sounds as if the patient likely drink at least a moderate amount of alcohol if not drinking on a daily basis for many years but quit drinking in 1994. 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 Code status: Full code Surrogate decision maker: Tha () Smoking packs per day: 1 Smoking cigarettes per day: 20.0 Years smoked: 55 Smoking pack-years: 55.00 Smoking status: Former smoker Second hand tobacco smoke exposure: Yes Alcohol intake: former Alcohol use details: She used to drink somewhat frequently when she was a factory focus technician but quit in 1994. Substance use: never Substance use type: does not use Do You Feel Safe in your Home?: Yes Lack of Transportation: No Lack of Food: Never True Current Housing: I Have Housing Concerned About Future Housing: No Difficulty Paying Gas/Electric Bills: No Difficulty Paying for Meds: No Currently Unemployed: No Education: Bachelor's Degree Difficulty w/ Childcare or Family Care: No Spiritual care concerns: No Meds Home Medications and Allergies Home Medications ?Medication ?Instructions ?Recorded ?Confirmed ?Type budesonide-formoterol HFA 80 2 puff inhalation BID 03/2505/28/25 History mcg-4.5 mcg/actuation aerosol inhaler (Symbicort) albuterol sulfate 90 mcg/actuation 1 inh inhalation QI D PRN shortness 04/06/24 05/28/25 Rx aerosol inhaler of breath or wheezing #6.7 g jonnie ipratropium 0.5 mg-albuterol 3 mg 3 ml inhalation Q6H PRN shortness 04/06/24 05/28/25 Rx (2.5 mg base)/3 mL nebulization of breath or wheezing #90 mL soln losartan 25 mg tablet 25 mg PO DAILY #30 tabs 07/01/2525 Rx prednisone 10 mg tablet 10 mg PO DIRECTED #62 tab s 04/06/24 05/28/25 Rx tiotropium bromide 1.25 2 puff inhalation DAILY 06/2705/28/25 History mcg/actuation mist for inhalation (Spiriva Respimat) darunavir 800 mg tablet 800 mg PO DAILY 04/12/25 History emtricitabine 200 mg-tenofovir 1 tablet PO DAILY 04/1205/28/25 History disoproxil fumarate 300 mg tablet (Truvada) ritonavir 100 mg tablet 100 mg PO DAILY 04/12/25 History sodium chloride 0.65 % nasal spray 2 spray intranasal QID PRN nasal 04/12/25 05/28/25 History aerosol ([place] Saline) congestion guaifenesin 600 mg tablet, 1,200 mg (2 x 600 mg) PO Q1 2HR #30 04/16/25 05/28/25 Rx extended release 12 hr (Mucus tabs Relief ER) prednisone 10 mg tablet 10 mg PO DIRECTED #18 tab s 04/16/25 05/28/25 Rx Allergies Allergy/AdvReac Type Severity Reaction Status Date / Time meperidine Allergy Unknown anaphlaxis Verified 04/12/25 17:57 orange Allergy Unknown Hives Verified 04/12/25 17:57 Vital Signs Vital Signs - 24 hr 05/31/25 12:00 05/31/25 13:34 05/31/25 13:40 Temperature Pulse Rate 77 90 96 Respiratory Rate 20 20 Blood Pressure Pulse Oximetry Oxygen Delivery Oxygen Flow Rate Fraction of Inspired Oxygen 05/31/25 14:00 05/31/25 16:00 05/31/25 19:41 Temperature 36.4 C Pulse Rate 90 92 92 Respiratory Rate 16 16 Blood Pressure 134/83 Pulse Oximetry 94 94 Oxygen Delivery Nasal Cannula Oxygen Flow Rate 2.5 Fraction of Inspired Oxygen 05/31/25 20:00 05/31/25 20:23 05/31/25 20:38 Temperature 36.3 C L Pulse Rate 77 83 Respiratory Rate 20 Blood Pressure 133/76 Pulse Oximetry 93 95 Oxygen Delivery Nasal Cannula Oxygen Flow Rate 3 Fraction of Inspired Oxygen 05/31/25 20:38 05/31/25 20:46 06/01/25 00:00 Temperature Pulse Rate 82 86 75 Respiratory Rate 18 18 Blood Pressure Pulse Oximetry Oxygen Delivery Oxygen Flow Rate Fraction of Inspired Oxygen 06/01/25 01:39 06/01/25 01:44 06/01/25 03:47 Temperature 36.6 C Pulse Rate 89 87 85 Respiratory Rate 18 18 18 Blood Pressure 126/75 Pulse Oximetry 96 Oxygen Delivery Oxygen Flow Rate Fraction of Inspired Oxygen 06/01/25 04:00 06/01/25 07:08 06/01/25 07:09 Temperature Pulse Rate 82 88 88 Respiratory Rate 20 20 Blood Pressure Pulse Oximetry 93 Oxygen Delivery Nasal Cannula Oxygen Flow Rate 3 Fraction of Inspired Oxygen Exam 2 Const: General: comfortable HENMT: Mouth: Yes moist mucous membranes Eyes: EOM: EOMs intact bilaterally Neck: Neck: no JVD Resp: Effort & Inspection: normal respiratory effort Auscultation: rales Cardio: Rate: tachycardic Rhythm: regular rhythm Extrem: General: no pedal edema Results Labs and Meds 06/01/25 07:32 06/01/25 07:32 Lab results: Cardiac Enzymes 06/01/25 Range/Units 07:32 AST 26 (14-36) U/L CBC 06/01/25 Range/Units 07:32 WBC 9.5 (4.5-10.0) K/mm3 RBC 4.42 (4.2-5.4) M/mm3 Hgb 11.5 L (12.0-15.0) g/dL Hct 37.3 (37.0-47.0) % Plt Count 361 (150-375) k/mm3 Lymph # (Auto) 2.28 (0.9-3.2) K/mm3 [place] # (Auto) 0.5 (0.1-0.6) K/mm3 Eos # (Auto) 0.1 (0-0.3) K/mm3 Baso # (Auto) 0.0 (0.0-0.1) K/mm3 Comprehensive Metabolic Panel 06/01/25 Range/Units 07:32 Sodium 130 L (137-145) mmol/L Potassium 4.0 (3.4-5.0) mmol/L Chloride 93 L (98-107) mmol/L Carbon Dioxide 35 H (22-30) mmol/L BUN 19 H (7-17) mg/dL Creatinine 0.61 L (0.7-1.0) mg/dL Glucose 85 (65-110) mg/dL Calcium 8.4 (8.4-10.2) mg/dL AST 26 (14-36) U/L ALT 22 (6-35) U/L Alkaline Phosphatase 66 (38-126) U/L Total Protein 6.3 (6.3-8.2) g/dL Albumin 3.2 L (3.5-5.1) g/dL Intake and Output 05/31/25 06/01/25 06/01/25 23:59 07:59 15:59 Intake Total 290 50 Balance 290 50 Intake: IV 50 50 Cefepime 2 gm In Sodium 50 50 Chloride 0.9% IV 50 ml @ 100 mls/hr IVPB Q8H [facility] Rx#: [id number] Oral 240 Other: # Unmeasured Voids 3 6 Number of Bowel Movements Today 2 Patient Weight 06/01/25 23:59 Weight 43.8 kg
--- NOTE | 2025-06-01 10:51 | P.PNINF_ITS ---
Progress Note: A&P Assessment and Plan (1) HIV (human immunodeficiency virus infection): Qualifiers: HIV symptom status: unspecified Qualified Code(s): Z21 - Asymptomatic human immunodeficiency virus [HIV] infection status Code(s): B20 - Human immunodeficiency virus [HIV] disease Status: Acute (2) Community acquired pneumonia: Qualifiers: Laterality: unspecified laterality Qualified Code(s): J18.9 - Pneumonia, unspecified organism Code(s): J18.9 - Pneumonia, unspecified organism Status: Acute (3) Acute on chronic respiratory failure with hypoxia and hypercapnia: Code(s): J96.21 - Acute and chronic respiratory failure with hypoxia; J96.22 - Acute and chronic respiratory failure with hypercapnia Status: Acute (4) COPD with acute lower respiratory infection: Code(s): J44.0 - Chronic obstructive pulmonary disease with (acute) lower respiratory infection Status: Acute (5) Lung mass: Code(s): R91.8 - Other nonspecific abnormal finding of lung field Status: Acute (6) Chronic steroid use: Status: Acute Plan # HIV with CD4 count 1 year ago 176 ( 23%) but now decreased to 56. despite this, viral load, although not undetectable, has improved since last evaluation and is now at 90. Remains on Truvada plus darunavir/ ritonavir. -- patient claims compliance with antiretrovirals. # Acute on chronic hypoxic / hypercapnic respiratory failure in the setting of chronic COPD requiring home O2 of 2 L. -- consider exacerbation COPD. -- chest x-ray and CT evidence of acute pneumonia which may be recurrent after recent treatment for same. -- also with bilateral upper lobe masses and lymphadenopathy and may be suggestive of metastatic malignancy. Long history of tobacco use. -- at risk for HIV-associated opportunistic infection with current CD4 count 56. Consider PJP. Bactrim at PJP treatment dose added yesterday. # Leukocytosis , resolved. Plan: -- await other outstanding studies such as special stain for PJP and urine antigen analysis. -- day 3 of 21 treatment dose Bactrim ( 2 double-strength tablets p.o. q.8 hours ). Upon completing 21 days would transition Bactrim to 1 double-strength tablet daily as prophylaxis. -- Pulmonary to manage steroids now primarily directed towards COPD. -- will now change cefepime to levofloxacin 750 mg p.o. q.day x5 additional days. -- she may eventually need outpatient bronchoscopy scheduled to further evaluate upper lobe masses which may involve malignancy. -- encourage follow-up with her primary HIV physician in order to monitor CD4 count which has recently declined. Patient was seen via video telehealth consultation with the assistance of staff. Chart, data, and patient independently reviewed. Patient was located at [facility] while I was located in my [place] office. Received verbal consent from patient. Subjective Date/time seen: 06/01/25 10:51 Interval history: 05/29/2025: Afebrile. Vital signs stable. Some increase in dry cough. Appreciate Pulmonary input. They point out, however, specific bronchoscopy to assess upper lobe masses could not be performed at this institution. 05/30/2025: Increasing shortness of breath today. CD4 count now down to 56. 05/31/2025: Breathing may be improving. Seems to be tolerating baseline 2 L per nasal cannula. Despite a drop in her CD4 count viral load is only 90. 06/01/2025: Afebrile. Remains on 2-3 L per nasal cannula. Possibility of dis charge this weekend. MRSA screen: Positive Sputum culture: Normal respiratory nga Respiratory pathogen panel: Negative including chlamydia and mycoplasma. Urine Legionella antigen: Negative Urine pneumococcal antigen: Pending Urine Histoplasma antigen: Pending Blastomycosis: Pending PJP stain: Pending CD4 count: 56 Viral load: 90 Review of Systems Review of Systems: All systems reviewed & are unremarkable except as noted in HPI and below Exam Narrative: Awake, alert, and interactive. No distress. Normocephalic. No conjunctivitis. No respiratory distress. Abdomen not significantly distended. No rash. Objective Data Vital Signs Vital Signs: Vital Signs - 24 hr 05/31/25 12:00 05/31/25 13:34 05/31/25 13:40 Temperature Pulse Rate 77 90 96 Respiratory Rate 20 20 Blood Pressure Pulse Oximetry Oxygen Delivery Oxygen Flow Rate Fraction of Inspired Oxygen 05/31/25 14:00 05/31/25 16:00 05/31/25 19:41 Temperature 97.6 F Pulse Rate 90 92 92 Respiratory Rate 16 16 Blood Pressure 134/83 Pulse Oximetry 94 94 Oxygen Delivery Nasal Cannula Oxygen Flow Rate 2.5 Fraction of Inspired Oxygen 05/31/25 20:00 05/31/25 20:23 05/31/25 20:38 Temperature 97.3 F L Pulse Rate 77 83 Respiratory Rate 20 Blood Pressure 133/76 Pulse Oximetry 93 95 Oxygen Delivery Nasal Cannula Oxygen Flow Rate 3 Fraction of Inspired Oxygen 05/31/25 20:38 05/31/25 20:46 06/01/25 00:00 Temperature Pulse Rate 82 86 75 Respiratory Rate 18 18 Blood Pressure Pulse Oximetry Oxygen Delivery Oxygen Flow Rate Fraction of Inspired Oxygen 06/01/25 01:39 06/01/25 01:44 06/01/25 03:47 Temperature 97.8 F Pulse Rate 89 87 85 Respiratory Rate 18 18 18 Blood Pressure 126/75 Pulse Oximetry 96 Oxygen Delivery Oxygen Flow Rate Fraction of Inspired Oxygen 06/01/25 04:00 06/01/25 07:08 06/01/25 07:09 Temperature Pulse Rate 82 88 88 Respiratory Rate 20 20 Blood Pressure Pulse Oximetry 93 Oxygen Delivery Nasal Cannula Oxygen Flow Rate 3 Fraction of Inspired Oxygen Intake/Output Intake/Output: Intake & Output 05/29/25 05/30/25 05/31/25 06/01/25 23:59 23:59 23:59 23:59 Intake Total 2502 1920 1430 50 Output Total 500 2400 800 Balance [facility] 285 50 Meds/Results Medications: Active Medications Generic Name Dose Route Start Last Admin Trade Name Freq PRN Reason Stop Dose Admin Albuterol 1 puff 05/28/25 09:10 05/28/25 16:23 Albuterol Sulfate (*Sp) Aerosol 1 Puff INHALATION 1 puff QID PRN Administration Shortness Of Breath Or Wheezing Albuterol/Ipratropium 3 ml 05/28/25 02:00 06/01/25 07:06 Ipratropium 0.5 Mg/Albuterol Sulfate 2.5 Mg Ampul.Neb 3 Ml INHALATION 3 ml Q6HRT SOHAM Administration Benzonatate 200 mg 05/29/25 13:00 06/01/25 09:32 Benzonatate 100 Mg Capsule PO 200 mg TID SOHAM Administration Budesonide 0.5 mg 05/29/25 10:00 06/01/25 07:07 Budesonide Respule Neb 0.5 Mg/2 Ml Amp INHALATION 0.5 mg Q12HRT SOHAM Administration Emtricitabine/Tenofovir 2 tab 05/28/25 09:00 06/01/25 09:33 Emtricitabine-Tenofovir 100 Mg-150 Mg Tablet PO 2 tab DAILY SOHAM Administration Enoxaparin Sodium 40 mg 05/31/25 09:00 06/01/25 09:33 Enoxaparin 40 Mg/0.4 Ml Syringe SUB-Q 40 mg DAILY SOHAM Administration Cefepime HCl 2 gm/ Sodium 50 mls @ 100 mls/hr 05/28/25 10:00 06/01/25 09:35 Chloride IVPB 100 mls/hr Q8H SOHAM Administration Losartan Potassium 25 mg 05/28/25 09:00 06/01/25 09:32 Losartan Potassium 25 Mg Tablet PO 25 mg DAILY SOHAM Administration Darunavir 800 Mg 800 mg 05/28/25 15:50 06/01/25 09:35 Tablet Home Med PO 06/27/25 15:49 800 mg DAILY SOHAM Administration Ritonavir 100 Mg 100 mg 05/28/25 15:50 06/01/25 09:34 Tablet Homemed PO 06/27/25 15:49 100 mg DAILY SOHAM Administration Nystatin 5 ml 05/28/25 09:00 06/01/25 09:33 Nystatin 100,000 Units/Ml Susp 5 Ml Oral.Susp PO 5 ml QID SOHAM Administration Ondansetron HCl 4 mg 05/31/25 08:58 05/31/25 09:07 Ondansetron Hcl Odt 4 Mg Tablet PO 4 mg Q6H PRN Administration Nausea And Vomiting Perflutren Lipid Microsphere 0 ml 05/30/25 08:21 Perflutren Lipid Microspheres 1.5 Ml Vial Diluted To 10 Ml Total Volume IV PUSH 06/02/25 08:21 ONCE PRN adequate visualization Protocol Prednisone 7.5 mg 06/01/25 08:30 06/01/25 09:33 Prednisone 2.5 Mg Tablet PO 7.5 mg DAILY@0800 SOHAM Administration Sodium Chloride 2 spray 05/28/25 09:10 05/28/25 10:43 Saline 0.65% James Soln 44 Ml Btl NASAL 2 spray QID PRN Administration Nasal Congestion Trimethoprim/Sulfamethoxazole 2 tab 05/30/25 09:00 06/01/25 05:12 Sulfamethoxazole/Trimethoprim 800/160 Mg Ds Tablet PO 2 tab Q8HR SOHAM Administration Radiology Results: ITS Impressions Chest CTA 05/27/25 20:02 IMPRESSION: 1. New bilateral upper lobe masses, largest measuring up to 2.4 cm, concerning for bronchogenic carcinoma. Abnormal hilar lymphadenopathy, suspicious for metastatic disease. 2: Right middle lobe and lingular airspace consolidation, consistent with pneumonia. 3: No large central pulmonary embolism. Evaluation of peripheral pulmonary arteries somewhat limited due to motion artifact and contrast bolus timing. Chest X-Ray 05/30/25 09:10 Impression: Compared to the prior study probable pneumonic process appears slightly improved, there is a new small right pleural effusion. Labs Labs: Laboratory Results - last 24 hr 06/01/25 06/01/25 07:32 10:48 WBC 9.5 RBC 4.42 Hgb 11.5 L Hct 37.3 MCV 84.4 MCH 26.0 MCHC 30.8 L RDW 16.2 H Plt Count 361 MPV 8.8 Immature Gran % (Auto) 4.4 H Neut % (Auto) 65.7 Lymph % (Auto) 23.9 [place] % (Auto) 4.8 Eos % (Auto) 0.8 Baso % (Auto) 0.4 Lymph # (Auto) 2.28 [place] # (Auto) 0.5 Eos # (Auto) 0.1 Baso # (Auto) 0.0 Abs Immat Gran (auto) 0.42 H Absolute Neuts (auto) 6.3 Absolute Nucleated RBC 0.000 Nucleated RBC % 0.0 Sodium 130 L Potassium 4.0 Chloride 93 L Carbon Dioxide 35 H Anion Gap 2 L BUN 19 H Creatinine 0.61 L Estim Creat Clear Calc 56 Estimated GFR > 60 Glucose 85 POC Capillary Glucose 97 Calcium 8.4 Total Bilirubin < 0.1 L AST 26 ALT 22 Alkaline Phosphatase 66 NT-Pro-B Natriuret Pep 170 H Total Protein 6.3 Albumin 3.2 L
--- NOTE | 2025-06-01 11:30 | PCRCNOTE ---
HOME O2 EVAL COMPLETE, NO CHANGE FROM CURRENT SETTINGS. 2L REST AND ACTIVITY. PT'S FAMILY TO BRING IN PORTABLE O2 FOR DISCHARGE.
[2025-06-02] VITALS (20 sets, daily range): BP systolic 105–123; BP diastolic 61–74; PULSE 74–88; RESP 16–20; TEMP 36.6–36.9; O2SAT 92–96
[2025-06-02] MEDS: IPRATROPIUM 0.5 MG/ALBUTEROL SULFATE 2.5 MG AMPUL.NEB 3 ML INHALATION ×3 (02:37→20:34)
[2025-06-02 04:40] LABS: Hematocrit 35.0 % (37.0-47.0); Hemoglobin 11.0 g/dL (12.0-15.0); Mean Corpuscular HGB Conc 31.4 g/dl (32-36); Mean Corpuscular Hemoglobin 26.1 pg (26-34); Mean Corpuscular Volume 83.1 fl (80-100); Platelet Count Result 314 k/mm3 (150-375); Red Blood Count 4.21 M/mm3 (4.2-5.4); White Blood Count 9.1 K/mm3 (4.5-10.0)
[2025-06-02 05:11] LABS: Alanine Aminotransferase 21 U/L (6-35); Albumin Level 3.2 g/dL (3.5-5.1); Alkaline Phosphatase 67 U/L (38-126); Anion Gap 3 mmol/L (4-12); Aspartate Amino Transferase 28 U/L (14-36); Bilirubin,Total < 0.1 mg/dL (0.2-1.3); Blood Urea Nitrogen 12 mg/dL (7-17); Calcium 8.2 mg/dL (8.4-10.2); Carbon Dioxide 33 mmol/L (22-30); Chloride 92 mmol/L (98-107); Estimated CRCL calculation 63 ml/min; Estimated Glomerular Filt Rate > 60; Glucose 82 mg/dL (65-110); Potassium 4.5 mmol/L (3.4-5.0); Sodium 128 mmol/L (137-145); Total Protein 6.2 g/dL (6.3-8.2)
[2025-06-02 05:23] LABS: Anisocytosis 1+; Band Neutrophils Percent 2 % (0-6); Eosinophils Absolute Manual 0.36 K/mm3 (0.02-0.50); Eosinophils Percent Manual 4 % (0-4); Lymphocytes Absolute Manual 2.54 K/mm3 (1.1-4.5); Lymphocytes Percent Manual 28.0 % (18-44); Monocytes Absolute Manual 0.36 K/mm3 (0.1-0.90); Monocytes Percent Manual 4 % (3-9); Neutrophils Absolute Manual 5.82 K/mm3 (1.3-6.7); Neutrophils Percent Manual 62 % (46-73); Ovalocytes 1+; Schistocytes None Seen; Total Cells Counted 100
[2025-06-02 05:24] LABS: Hypochromasia 1+; Smudge Cells PRESENT; Spherocytes Occasional
[2025-06-02] MEDS: SULFAMETHOXAZOLE/TRIMETHOPRIM 800/160 MG DS TABLET 2 TAB PO ×3 (06:06→22:14)
[2025-06-02] MEDS: LOSARTAN POTASSIUM 25 MG TABLET PO (07:39)
[2025-06-02] MEDS: METOPROLOL SUCCINATE EXT REL 25 MG TABCR PO (07:39)
[2025-06-02] MEDS: EMTRICITABINE-TENOFOVIR 100 MG-150 MG TABLET 2 TAB PO (07:39)
[2025-06-02] MEDS: ONDANSETRON HCL ODT 4 MG TABLET PO ×2 (07:39→15:00)
[2025-06-02] MEDS: BENZONATATE 100 MG CAPSULE 200 MG PO ×3 (07:40→17:18)
[2025-06-02] MEDS: ENOXAPARIN 40 MG/0.4 ML SYRINGE SUB-Q (07:41)
[2025-06-02] MEDS: NYSTATIN 100,000 UNITS/ML SUSP 5 ML ORAL.SUSP PO ×4 (07:41→22:14)
[2025-06-02] MEDS: DARUNAVIR 800 MG 800 EACH PO (07:41)
[2025-06-02] MEDS: RITONAVIR 100 MG 100 EACH PO (07:42)
[2025-06-02 12:08] LABS: Blastomyces Abs, Qn, DID Negative (Neg:<1:1)
--- NOTE | 2025-06-02 13:03 | P.PNIM_ITS ---
Progress Note: A&P Assessment and Plan (1) Sepsis: Qualifiers: Acute respiratory failure type: unspecified Sepsis acute organ dysfunction status: with acute organ dysfunction Sepsis type: sepsis due to unspecified organism Severe sepsis acute organ dysfunction type: acute respiratory failure Severe sepsis shock status: without septic shock Qualified Code(s): A41.9 - Sepsis, unspecified organism; R65.20 - Severe sepsis without septic shock; J96.00 - Acute respiratory failure, unspecified whether with hypoxia or hypercapnia Code(s): A41.9 - Sepsis, unspecified organism Status: Acute Assessment and Plan: * sepsis present on admission evidenced by tachycardia, tachypnea, increased hypoxia, leukocytosis * LA WNL, BP stable * received 1L NS in ED * source: pneumonia, continue management as below * WBC trending up likely due to steroids. Clinically improving. * follow-up blood cultures - NGTD * WBC down trending, 15.5 -> 11.9 -> 10.0 -> 9.1 * Remains afebrile * Resolved (2) Community acquired pneumonia: Qualifiers: Laterality: unspecified laterality Qualified Code(s): J18.9 - Pneumonia, unspecified organism Code(s): J18.9 - Pneumonia, unspecified organism Status: Acute Assessment and Plan: * recent admission 04/2025 for pneumonia, treated with Rocephin and azithromycin, discharged on Levaquin * CTA chest with RML and lingular airspace consolidation consistent with pneumonia * MRSA DNA positive * blood cultures NGTD * sputum culture, legionella, strep, blastomycosis and histo antigens and mycoplasma antibodies pending * infectious disease consulted in light of history of HIV and recurrent pneumonia, recommended to continue cefepime, vanc and azithromycin. * CD4 count 56 * awaiting viral load. Genotype analysis sent * Pulmonology/ID following * Repeat CXR: Compared to the prior study probable pneumonic process appears slightly improved, there is a new small right pleural effusion * Pending urine Legionella, pneumococcal, mycoplasma IgM, sputum for fungus and sputum for PJP * Anticipate a 21 day course of currently dosed Bactrim with transition to 1 double-strength tablet daily (or 1 tablet every Wednesday - Wednesday- Wednesday ) after completing treatment dose. * 06/02: Per ID - switch Cefepime to Levofloxacin 750mg qdaily x5 days (3) COPD with acute lower respiratory infection: Code(s): J44.0 - Chronic obstructive pulmonary disease with (acute) lower respiratory infection Status: Acute Assessment and Plan: * no wheezing this AM. Improving cough * Pulm following * decreased the prednisone to 10 mg p.o. q.day, continue DuoNebs q.6, b udesonide nebs b.i.d., guaifenesin 1200 p.o. b.i.d. and Tessalon Perles 200 t.i.d. * discontinue patient's prednisone today - will decrease to 7.5 p.o. q.day today and we continue this for 1 week and then decrease to 5 mg p.o. q.day * Per Pulm recommendations upon discharge: * Prednisone 7.5 mg p.o. q.day through 06/07/2025 then 5 mg p.o. q.day * Symbicort 80-4.5 at 2 puffs b.i.d. * Spiriva Respimat 1.25 mcg at 2 puffs q.day * Rescue albuterol inhaler 2 puffs q.4 hours p.r.n. shortness of breath or wheezing * Rescue albuterol nebulizer 2.5 mg Q 4 hours p.r.n. shortness of breath or wheezing * Oxygen per formal home O2 assessment which I have ordered today. * When she naps or sleeps: Oxygen 4 L nasal cannula. (4) Acute on chronic respiratory failure with hypoxia and hypercapnia: Code(s): J96.21 - Acute and chronic respiratory failure with hypoxia; J96.22 - Acute and chronic respiratory failure with hypercapnia Status: Acute Assessment and Plan: * on 2-3L NC O2 baseline * ABG with pH 7.38, pCO2 60.4, pO2 50.5. pCO2 higher than baseline, but work of breathing improved so BiPAP was deferred. * required up to 5L in ED, now back to baseline 3L * monitor O2 sat - 95% on 2L (5) Lung mass: Code(s): R91.8 - Other nonspecific abnormal finding of lung field Status: Acute Assessment and Plan: * CTA chest with new bilateral upper lobe masses, largest 2.4 cm concerning for bronchogenic carcinoma * pulmonology consulted, will need outpatient bronchoscopy with EUS at tertiary center likely as outpatient * Pulm discussed with Dr. Owen, [facility] * he prefers her to complete treatment for pneumonia and then his staff will call him to set up an outpatient bronchoscopy with EBUS (6) HIV (human immunodeficiency virus infection): Qualifiers: HIV symptom status: unspecified Qualified Code(s): Z21 - Asymptomatic human immunodeficiency virus [HIV] infection status Code(s): B20 - Human immunodeficiency virus [HIV] disease Status: Acute Assessment and Plan: * managed on darunavir, ritonavir, and Truvada - continue * CD4 count 176 04/2024 - patient was off medication at this time. Reports she restarted ART 2 months ago. * viral load pending * CD4 count 56 * ID following * Begin empiric PJP coverage with Bactrim double-strength p.o. 2 tablets q.8 hours * Pending expectorated sputum for routine Gram stain and culture, fungal culture, cytopathology and special stains for PJP * Await viral load and obtain genotype analysis * Now on empiric PJP coverage with Bactrim DS (7) Systolic heart failure: Code(s): I50.20 - Unspecified systolic (congestive) heart failure Status: Acute Assessment and Plan: * Echo 05/30: EF 45-50, mildly enlarged LV dimension, G1DD, Mild AVR/TVR, moderate MVR * Cardiology consulted * No chest pain, not in heart failure * continue losartan 25 mg p.o. daily and add metoprolol succinate 25 mg p.o. daily * Low dose diuretic if SOB worsens * f/u outpt (8) Chronic steroid use: Status: Acute Assessment and Plan: * on prednisone 10mg daily (9) Hyponatremia: Code(s): E87.1 - Hypo-osmolality and hyponatremia Status: Acute Assessment and Plan: * Upon admission, Na 134 * Has been hovering around the low 130s throughout hospitalization * 06/02: Na 128 * Fluid restrict 1500ml daily, encourage increase salt intake * Will reasses on am labs Subjective Date/time seen: 06/02/25 13:03 Interval history: 65-year-old female with a past medical history of COPD with chronic hypoxic respiratory failure on home O2 of 2 L, chronic prednisone therapy of 10 mg daily, HIV and essential hypertension who presented to the ER from home via EMS due to increased shortness of breath. 06/02/2025 Patient sitting comfortably in bed at time of examination. Review of Systems Review of Systems: 12 systems were reviewed with pertinent positives and negatives per HPI. Except as documented in the HPI, all other systems were reviewed and are negative. All systems reviewed & are unremarkable except as noted in HPI and below Exam Narrative: General: NAD, chronically ill-appearing Eyes: EOMI ENT: neck supple Cardiovascular: Regular rate and rhythm Respiratory: + rhonchi of RLL, respirations even and unlabored on 3L NC Gastrointestinal: Soft, non tender Genitourinary: no suprapubic tenderness Musculoskeletal: No edema Skin: warm, dry Neuro: Alert. Psych: Mood appropriate Const: Other: Appears older than stated age, cachectic, acutely ill-appearing, sitting up in bed with head of bed at almost 90? HENMT: Other: Head is normocephalic atraumatic, eyes are some what sunken, mucous membranes are moist, no oral pharyngeal erythema Eyes: Other: Pupils are equal and reactive, bilateral cataracts noted Neck: Other: No lymphadenopathy, no JVD Resp: Other: Conversational tachypnea, accessory muscle use, abdominal respirations speaking in 3-4 word sentences, end-expiratory wheezing bilateral anterior waddell Cardio: Other: Mildly tachycardic, 2+ bilateral radial pedal pulses, no murmur GI: Other: Firm, nontender, normoactive bowel sounds Skin: Other: Generalized pallor, non jaundice, 3-4 second cap refill, no mottling Neuro: Other: Alert oriented x4, speech is clear, no facial asymmetry, no localizing neurologic deficits noted during the course of conversation Extrem: Other: No cyanosis, no edema, moves all extremities equally, generalized muscle wasting Psych: Other: Appropriate mood and affect, pleasant and cooperative, judgment and insight intact Objective Data Vital Signs Vital Signs: Vital Signs - 24 hr 06/01/25 13:04 06/01/25 13:29 06/01/25 16:00 Temperature 98.1 F Pulse Rate 92 99 89 Respiratory Rate 18 18 Blood Pressure 122/61 Pulse Oximetry 91 Oxygen Delivery Oxygen Flow Rate 06/01/25 19:40 06/01/25 19:47 06/01/25 19:47 Temperature 97.9 F Pulse Rate 80 85 Respiratory Rate 16 20 Blood Pressure 123/77 Pulse Oximetry 97 95 Oxygen Delivery Nasal Cannula Oxygen Flow Rate 2 06/01/25 19:55 06/01/25 20:00 06/01/25 20:00 Temperature Pulse Rate 87 83 Respiratory Rate 20 Blood Pressure Pulse Oximetry 95 Oxygen Delivery Nasal Cannula Oxygen Flow Rate 2.5 06/02/25 00:00 06/02/25 02:37 06/02/25 02:42 Temperature Pulse Rate 87 86 84 Respiratory Rate 20 20 Blood Pressure Pulse Oximetry Oxygen Delivery Oxygen Flow Rate 06/02/25 04:00 06/02/25 04:47 06/02/25 07:39 Temperature 97.8 F Pulse Rate 82 81 88 Respiratory Rate 16 Blood Pressure 123/74 Pulse Oximetry 94 Oxygen Delivery Oxygen Flow Rate 06/02/25 07:43 06/02/25 08:03 Temperature Pulse Rate 78 Respiratory Rate Blood Pressure Pulse Oximetry 92 Oxygen Delivery Nasal Cannula Oxygen Flow Rate 2 Intake/Output Intake/Output: Intake & Output 05/30/25 05/31/25 06/01/25 06/02/25 23:59 23:59 23:59 23:59 Intake Total 1920 1430 740 540 Output Total 2400 800 Balance -480 630 740 540 Meds/Results Medications: Active Medications Generic Name Dose Route Start Last Admin Trade Name Freq PRN Reason Stop Dose Admin Albuterol 1 puff 05/28/25 09:10 05/28/25 16:23 Albuterol Sulfate (*Sp) Aerosol 1 Puff INHALATION 1 puff QID PRN Administration Shortness Of Breath Or Wheezing Albuterol/Ipratropium 3 ml 05/28/25 02:00 06/02/25 07:43 Ipratropium 0.5 Mg/Albuterol Sulfate 2.5 Mg Ampul.Neb 3 Ml INHALATION Not Given Q6HRT SOHAM Benzonatate 200 mg 05/29/25 13:00 06/02/25 07:40 Benzonatate 100 Mg Capsule PO 200 mg TID SOHAM Administration Budesonide 0.5 mg 05/29/25 10:00 06/02/25 07:42 Budesonide Respule Neb 0.5 Mg/2 Ml Amp INHALATION Not Given Q12HRT [facility] Emtricitabine/Tenofovir 2 tab 05/28/25 09:00 06/02/25 07:39 Emtricitabine-Tenofovir 100 Mg-150 Mg Tablet PO 2 tab DAILY SOHAM Administration Enoxaparin Sodium 40 mg 05/31/25 09:00 06/02/25 07:41 Enoxaparin 40 Mg/0.4 Ml Syringe SUB-Q 40 mg DAILY SOHAM Administration Levofloxacin 750 mg 06/01/25 16:00 06/01/25 16:52 Levofloxacin 750 Mg Tablet PO 06/05/25 14:01 750 mg DAILY@1400 [facility] Administration Losartan Potassium 25 mg 05/28/25 09:00 06/02/25 07:39 Losartan Potassium 25 Mg Tablet PO 25 mg DAILY SOHAM Administration Metoprolol Succinate 25 mg 06/02/25 09:00 06/02/25 07:39 Metoprolol Succinate Ext Rel 25 Mg Tabcr PO 25 mg QAM SOHAM Administration Darunavir 800 Mg 800 mg 05/28/25 15:50 06/02/25 07:41 Tablet Home Med PO 06/27/25 15:49 800 mg DAILY [facility] Administration Ritonavir 100 Mg 100 mg 05/28/25 15:50 06/02/25 07:42 Tablet Homemed PO 06/27/25 15:49 100 mg DAILY [facility] Administration Nystatin 5 ml 05/28/25 09:00 06/02/25 07:41 Nystatin 100,000 Units/Ml Susp 5 Ml Oral.Susp PO 5 ml QID [facility] Administration Ondansetron HCl 4 mg 05/31/25 08:58 06/02/25 07:39 Ondansetron Hcl Odt 4 Mg Tablet PO 4 mg Q6H PRN Administration Nausea And Vomiting Prednisone 7.5 mg 06/01/25 08:30 06/02/25 07:39 Prednisone 2.5 Mg Tablet PO 7.5 mg DAILY@0800 [facility] Administration Sodium Chloride 2 spray 05/28/25 09:10 05/28/25 10:43 Saline 0.65% James Soln 44 Ml Btl NASAL 2 spray QID PRN Administration Nasal Congestion Trimethoprim/Sulfamethoxazole 2 tab 05/30/25 09:00 06/02/25 06:06 Sulfamethoxazole/Trimethoprim 800/160 Mg Ds Tablet PO 2 tab Q8HR SOHAM Administration Radiology Results: ITS Impressions Chest CTA 05/27/25 20:02 IMPRESSION: 1. New bilateral upper lobe masses, largest measuring up to 2.4 cm, concerning for bronchogenic carcinoma. Abnormal hilar lymphadenopathy, suspicious for metastatic disease. 2: Right middle lobe and lingular airspace consolidation, consistent with pneumonia. 3: No large central pulmonary embolism. Evaluation of peripheral pulmonary arteries somewhat limited due to motion artifact and contrast bolus timing. Chest X-Ray 05/30/25 09:10 Impression: Compared to the prior study probable pneumonic process appears slightly improved, there is a new small right pleural effusion. Labs Labs: Laboratory Results - last 24 hr 05/29/25 06/02/25 04:44 04:33 WBC 9.1 RBC 4.21 Hgb 11.0 L Hct 35.0 L MCV 83.1 MCH 26.1 MCHC 31.4 L RDW 16.2 H Plt Count 314 MPV 8.9 Immature Gran % (Auto) Not Reportable Neut % (Auto) Not Reportable Lymph % (Auto) Not Reportable [place] % (Auto) Not Reportable Eos % (Auto) Not Reportable Baso % (Auto) Not Reportable Lymph # (Auto) Not Reportable [place] # (Auto) Not Reportable Eos # (Auto) Not Reportable Baso # (Auto) Not Reportable Abs Immat Gran (auto) Not Reportable Absolute Neuts (auto) Not Reportable Absolute Nucleated RBC Not Reportable Total Counted 100 Neutrophils % (Manual) 62 Band Neutrophils % 2 Lymphocytes % (Manual) 28.0 Monocytes % (Manual) 4 Eosinophils % (Manual) 4 Nucleated RBC % Not Reportable Abs Neuts (Manual) 5.82 Abs Lymphs (Manual) 2.54 Abs Monocytes (Manual) 0.36 Absolute Eos (Manual) 0.36 Smudge Cells Present Platelet Estimate Adequate Hypochromasia 1+ Anisocytosis 1+ Spherocytes Occasional Ovalocytes 1+ Schistocytes None seen Sodium 128 L Potassium 4.5 Chloride 92 L Carbon Dioxide 33 H Anion Gap 3 L BUN 12 D Creatinine 0.54 L Estim Creat Clear Calc 63 Estimated GFR > 60 Glucose 82 Calcium 8.2 L Total Bilirubin < 0.1 L AST 28 ALT 21 Alkaline Phosphatase 67 Total Protein 6.2 L Albumin 3.2 L Blastomyces Antibody Negative Quality VTE Prophylaxis VTE prophylaxis: pharmacologic ordered
[2025-06-02] MEDS: BUDESONIDE RESPULE NEB 0.5 MG/2 ML AMP INHALATION (20:34)
[2025-06-03] VITALS (20 sets, daily range): BP systolic 119–142; BP diastolic 60–99; PULSE 69–93; RESP 16–20; TEMP 36.1–36.4; O2SAT 91–97
[2025-06-03] MEDS: IPRATROPIUM 0.5 MG/ALBUTEROL SULFATE 2.5 MG AMPUL.NEB 3 ML INHALATION ×3 (02:57→20:27)
[2025-06-03 04:48] LABS: Hematocrit 36.3 % (37.0-47.0); Hemoglobin 11.2 g/dL (12.0-15.0); Immature Granulocyte Percent A 5.8 % (0-0.5); Lymphocytes Absolute Auto 2.03 K/mm3 (0.9-3.2); Mean Corpuscular HGB Conc 30.9 g/dl (32-36); Mean Corpuscular Hemoglobin 25.9 pg (26-34); Mean Corpuscular Volume 83.8 fl (80-100); Nucleated Red Blood Cells Absolute Auto 0.000 K/mm3 (0.0-0.012); Nucleated Red Blood Cells Perc 0.0 % (0.0-0.2); Platelet Count Result 336 k/mm3 (150-375); Red Blood Count 4.33 M/mm3 (4.2-5.4); White Blood Count 9.8 K/mm3 (4.5-10.0)
[2025-06-03 05:05] LABS: Alanine Aminotransferase 23 U/L (6-35); Albumin Level 3.3 g/dL (3.5-5.1); Alkaline Phosphatase 70 U/L (38-126); Anion Gap 3 mmol/L (4-12); Aspartate Amino Transferase 33 U/L (14-36); Bilirubin,Total < 0.1 mg/dL (0.2-1.3); Blood Urea Nitrogen 12 mg/dL (7-17); Calcium 8.4 mg/dL (8.4-10.2); Carbon Dioxide 34 mmol/L (22-30); Chloride 90 mmol/L (98-107); Estimated CRCL calculation 57 ml/min; Estimated Glomerular Filt Rate > 60; Glucose 74 mg/dL (65-110); Potassium 4.4 mmol/L (3.4-5.0); Sodium 127 mmol/L (137-145); Total Protein 6.2 g/dL (6.3-8.2)
[2025-06-03] MEDS: SULFAMETHOXAZOLE/TRIMETHOPRIM 800/160 MG DS TABLET 2 TAB PO ×3 (05:13→20:59)
--- NOTE | 2025-06-03 07:00 | P.PNIM_ITS ---
Progress Note: A&P Assessment and Plan (1) Sepsis: Qualifiers: Acute respiratory failure type: unspecified Sepsis acute organ dysfunction status: with acute organ dysfunction Sepsis type: sepsis due to unspecified organism Severe sepsis acute organ dysfunction type: acute respiratory failure Severe sepsis shock status: without septic shock Qualified Code(s): A41.9 - Sepsis, unspecified organism; R65.20 - Severe sepsis without septic shock; J96.00 - Acute respiratory failure, unspecified whether with hypoxia or hypercapnia Code(s): A41.9 - Sepsis, unspecified organism Status: Acute Assessment and Plan: * sepsis present on admission evidenced by tachycardia, tachypnea, increased hypoxia, leukocytosis * LA WNL, BP stable * received 1L NS in ED * source: pneumonia, continue management as below * WBC trending up likely due to steroids. Clinically improving. * follow-up blood cultures - NGTD * WBC down trending, 15.5 -> 11.9 -> 10.0 -> 9.1 * Remains afebrile * Resolved (2) Community acquired pneumonia: Qualifiers: Laterality: unspecified laterality Qualified Code(s): J18.9 - Pneumonia, unspecified organism Code(s): J18.9 - Pneumonia, unspecified organism Status: Acute Assessment and Plan: * recent admission 04/2025 for pneumonia, treated with Rocephin and azithromycin, discharged on Levaquin * CTA chest with RML and lingular airspace consolidation consistent with pneumonia * MRSA DNA positive * blood cultures NGTD * sputum culture, legionella, strep, blastomycosis and histo antigens and mycoplasma antibodies pending * infectious disease consulted in light of history of HIV and recurrent pneumonia, recommended to continue cefepime, vanc and azithromycin. * CD4 count 56 * awaiting viral load. Genotype analysis sent * Pulmonology/ID following * Repeat CXR: Compared to the prior study probable pneumonic process appears slightly improved, there is a new small right pleural effusion * Pending urine Legionella, pneumococcal, mycoplasma IgM, sputum for fungus and sputum for PJP * Anticipate a 21 day course of currently dosed Bactrim with transition to 1 double-strength tablet daily (or 1 tablet every Wednesday - Wednesday- Wednesday ) after completing treatment dose. * 06/02: Per ID - switch Cefepime to Levofloxacin 750mg qdaily x5 days * MRSA + sputum - continue Levofloxacin (3) COPD with acute lower respiratory infection: Code(s): J44.0 - Chronic obstructive pulmonary disease with (acute) lower respiratory infection Status: Acute Assessment and Plan: * no wheezing this AM. Improving cough * Pulm following * decreased the prednisone to 10 mg p.o. q.day, continue DuoNebs q.6, budesonide nebs b.i.d., guaifenesin 1200 p.o. b.i.d. and Tessalon Perles 200 t.i.d. * discontinue patient's prednisone today - will decrease to 7.5 p.o. q.day today and we continue this for 1 week and then decrease to 5 mg p.o. q.day * Per Pulm recommendations upon discharge: * Prednisone 7.5 mg p.o. q.day through 06/07/2025 then 5 mg p.o. q.day * Symbicort 80-4.5 at 2 puffs b.i.d. * Spiriva Respimat 1.25 mcg at 2 puffs q.day * Rescue albuterol inhaler 2 puffs q.4 hours p.r.n. shortness of breath or wheezing * Rescue albuterol nebulizer 2.5 mg Q 4 hours p.r.n. shortness of breath or wheezing * Oxygen per formal home O2 assessment which I have ordered today. * When she naps or sleeps: Oxygen 4 L nasal cannula. (4) Hyponatremia: Code(s): E87.1 - Hypo-osmolality and hyponatremia Status: Acute Assessment and Plan: * Upon admission, Na 134 * Has been hovering around the low 130s throughout hospitalization * 06/03: Na 127 * Continue Fluid restrict 1500ml daily, encourage increase salt intake * Nephro consult * Multiple factors likely contributory to low sodium -underlying lung cancer, pneumonia, possible hypothyroidism * Check serum/urine osmolality, TSH, urine sodium, serum protein electr ophoresis to rule out pseudohyponatremia * Continue fluid restriction * Low recheck sodium tomorrow on fluid restriction and consider salt tablets plus Lasix if still low (5) MRSA (methicillin resistant staph aureus) culture positive: Code(s): Z22.322 - Carrier or suspected carrier of Methicillin resistant Staphylococcus aureus Status: Acute Assessment and Plan: * Respiratory pathogen panel taken on 05/28 positive for MRSA * Susceptibility to levofloxacin * Has already been switched to oral levofloxacin by ID * Monitor for fever, developing leukocytosis (6) Acute on chronic respiratory failure with hypoxia and hypercapnia: Code(s): J96.21 - Acute and chronic respiratory failure with hypoxia; J96.22 - Acute and chronic respiratory failure with hypercapnia Status: Acute Assessment and Plan: * on 2-3L NC O2 baseline * ABG with pH 7.38, pCO2 60.4, pO2 50.5. pCO2 higher than baseline, but work of breathing improved so BiPAP was deferred. * required up to 5L in ED, now back to baseline 3L * monitor O2 sat - 95% on 2L (7) Lung mass: Code(s): R91.8 - Other nonspecific abnormal finding of lung field Status: Acute Assessment and Plan: * CTA chest with new bilateral upper lobe masses, largest 2.4 cm concerning for bronchogenic carcinoma * pulmonology consulted, will need outpatient bronchoscopy with EUS at tertiary center likely as outpatient * Pulm discussed with Dr. Owen, [facility] * he prefers her to complete treatment for pneumonia and then his staff will call him to set up an outpatient bronchoscopy with EBUS (8) HIV (human immunodeficiency virus infection): Qualifiers: HIV symptom status: unspecified Qualified Code(s): Z21 - Asymptomatic human immunodeficiency virus [HIV] infection status Code(s): B20 - Human immunodeficiency virus [HIV] disease Status: Acute Assessment and Plan: * managed on darunavir, ritonavir, and Truvada - continue * CD4 count 176 04/2024 - patient was off medication at this time. Reports she restarted ART 2 months ago. * viral load pending * CD4 count 56 * ID following * Begin empiric PJP coverage with Bactrim double-strength p.o. 2 tablets q.8 hours * Pending expectorated sputum for routine Gram stain and culture, fungal culture, cytopathology and special stains for PJP * Await viral load and obtain genotype analysis * Now on empiric PJP coverage with Bactrim DS (9) Systolic heart failure: Code(s): I50.20 - Unspecified systolic (congestive) heart failure Status: Inactive Assessment and Plan: * Echo 05/30: EF 45-50, mildly enlarged LV dimension, G1DD, Mild AVR/TVR, mo derate MVR * Cardiology consulted * No chest pain, not in heart failure * continue losartan 25 mg p.o. daily and add metoprolol succinate 25 mg p.o. daily * Low dose diuretic if SOB worsens * f/u outpt (10) Chronic steroid use: Status: Acute Assessment and Plan: * on prednisone 10mg daily L Subjective Date/time seen: 06/03/25 07:00 Interval history: 65-year-old female with a past medical history of COPD with chronic hypoxic respiratory failure on home O2 of 2 L, chronic prednisone therapy of 10 mg daily, HIV and essential hypertension who presented to the ER from home via EMS due to increased shortness of breath. 06/02/2025 Na down trending (has been hovering in low 130s, now 127). Placed on minor fluid restriction yesterday, nephrology consulted. Hyponatremia could be due to multiple factors, advise checking serum/urine osmolality, TSH, urine sodium, serum protein electrophoresis to rule out pseudo hyponatremia. Remains afebrile, no leukocytosis. Maintain fluid restriction, check sodium level tomorrow and if sodium continues to drop will trial salt tablets plus Lasix. Respiratory pathogen positive for MRSA -continue levofloxacin and Bactrim as susceptibility indicates levofloxacin is appropriate for coverage. Review of Systems Review of Systems: 12 systems were reviewed with pertinent positives and negatives per HPI. Except as documented in the HPI, all other systems were reviewed and are negative. All systems reviewed & are unremarkable except as noted in HPI and below Exam Narrative: General: NAD, chronically ill-appearing Eyes: EOMI ENT: neck supple Cardiovascular: Regular rate and rhythm Respiratory: + rhonchi of RLL, respirations even and unlabored on 3L NC Gastrointestinal: Soft, non tender Genitourinary: no suprapubic tenderness Musculoskeletal: No edema Skin: warm, dry Neuro: Alert. Psych: Mood appropriate Const: Other: Appears older than stated age, cachectic, acutely ill-appearing, sitting up in bed with head of bed at almost 90? HENMT: Other: Head is normocephalic atraumatic, eyes are some what sunken, mucous membranes are moist, no oral pharyngeal erythema Eyes: Other: Pupils are equal and reactive, bilateral cataracts noted Neck: Other: No lymphadenopathy, no JVD Resp: Other: Conversational tachypnea, accessory muscle use, abdominal respirations speaking in 3-4 word sentences, end-expiratory wheezing bilateral anterior waddell Cardio: Other: Mildly tachycardic, 2+ bilateral radial pedal pulses, no murmur GI: Other: Firm, nontender, normoactive bowel sounds Skin: Other: Generalized pallor, non jaundice, 3-4 second cap refill, no mottling Neuro: Other: Alert oriented x4, speech is clear, no facial asymmetry, no localizing neurologic deficits noted during the course of conversation Extrem: Other: No cyanosis, no edema, moves all extremities equally, generalized muscle wasting Psych: Other: Appropriate mood and affect, pleasant and cooperative, judgment and insight intact Objective Data Vital Signs Vital Signs: Vital Signs - 24 hr 06/02/25 07:30 06/02/25 07:39 06/02/25 07:43 Temperature Pulse Rate 88 Respiratory Rate Blood Pressure Pulse Oximetry 95 92 Oxygen Delivery Nasal Cannula Nasal Cannula Oxygen Flow Rate 2 2 06/02/25 08:03 06/02/25 12:03 06/02/25 13:23 Temperature Pulse Rate 78 80 78 Respiratory Rate 20 Blood Pressure Pulse Oximetry 94 Oxygen Delivery Oxygen Flow Rate 2 06/02/25 13:23 06/02/25 13:29 06/02/25 13:45 Temperature Pulse Rate 78 76 78 Respiratory Rate 20 20 16 Blood Pressure 117/69 Pulse Oximetry 95 Oxygen Delivery Oxygen Flow Rate 06/02/25 16:03 06/02/25 20:00 06/02/25 20:34 Temperature Pulse Rate 78 75 88 Respiratory Rate 20 Blood Pressure Pulse Oximetry Oxygen Delivery Oxygen Flow Rate 06/02/25 20:44 06/02/25 20:45 06/02/25 21:25 Temperature 98.4 F Pulse Rate 88 85 74 Respiratory Rate 20 20 18 Blood Pressure 105/61 Pulse Oximetry 93 96 Oxygen Delivery Nasal Cannula Oxygen Flow Rate 2 06/02/25 22:08 06/03/25 00:00 06/03/25 02:57 Temperature Pulse Rate 73 69 Respiratory Rate 16 Blood Pressure Pulse Oximetry 96 Oxygen Delivery Nasal Cannula Oxygen Flow Rate 2 06/03/25 03:00 06/03/25 04:00 06/03/25 04:48 Temperature 97 F L Pulse Rate 69 76 78 Respiratory Rate 16 16 Blood Pressure 142/62 H Pulse Oximetry 95 97 Oxygen Delivery Nasal Cannula Oxygen Flow Rate 2 Intake/Output Intake/Output: Intake & Output 05/31/25 06/01/25 06/02/25 08/31/25 23:59 23:59 23:59 23:59 Intake Total 5229 767 3482 350 Output Total 800 Balance 909 201 9256 350 Meds/Results Medications: Active Medications Generic Name Dose Route Start Last Admin Trade Name Freq PRN Reason Stop Dose Admin Albuterol 1 puff 05/28/25 09:10 05/28/25 16:23 Albuterol Sulfate (*Sp) Aerosol 1 Puff INHALATION 1 puff QID PRN Administration Shortness Of Breath Or Wheezing Albuterol/Ipratropium 3 ml 05/28/25 02:00 06/03/25 02:57 Ipratropium 0.5 Mg/Albuterol Sulfate 2.5 Mg Ampul.Neb 3 Ml INHALATION 3 ml Q6HRT SOHAM Administration Benzonatate 200 mg 05/29/25 13:00 06/02/25 17:18 Benzonatate 100 Mg Capsule PO 200 mg TID SOHAM Administration Budesonide 0.5 mg 05/29/25 10:00 06/02/25 20:34 Budesonide Respule Neb 0.5 Mg/2 Ml Amp INHALATION 0.5 mg Q12HRT SOHAM Administration Emtricitabine/Tenofovir 2 tab 05/28/25 09:00 06/02/25 07:39 Emtricitabine-Tenofovir 100 Mg-150 Mg Tablet PO 2 tab DAILY SOHAM Administration Enoxaparin Sodium 40 mg 05/31/25 09:00 06/02/25 07:41 Enoxaparin 40 Mg/0.4 Ml Syringe SUB-Q 40 mg DAILY SOHAM Administration Levofloxacin 750 mg 06/01/25 16:00 06/02/25 14:05 Levofloxacin 750 Mg Tablet PO 06/05/25 14:01 750 mg DAILY@1400 SOHAM Administration Losartan Potassium 25 mg 05/28/25 09:00 06/02/25 07:39 Losartan Potassium 25 Mg Tablet PO 25 mg DAILY SOHAM Administration Metoprolol Succinate 25 mg 06/02/25 09:00 06/02/25 07:39 Metoprolol Succinate Ext Rel 25 Mg Tabcr PO 25 mg QAM SOHAM Administration Darunavir 800 Mg 800 mg 05/28/25 15:50 06/02/25 07:41 Tablet Home Med PO 06/27/25 15:49 800 mg DAILY SOHAM Administration Ritonavir 100 Mg 100 mg 05/28/25 15:50 06/02/25 07:42 Tablet Homemed PO 06/27/25 15:49 100 mg DAILY SOHAM Administration Nystatin 5 ml 05/28/25 09:00 06/02/25 22:14 Nystatin 100,000 Units/Ml Susp 5 Ml Oral.Susp PO 5 ml QID SOHAM Administration Ondansetron HCl 4 mg 05/31/25 08:58 06/02/25 15:00 Ondansetron Hcl Odt 4 Mg Tablet PO 4 mg Q6H PRN Administration Nausea And Vomiting Prednisone 7.5 mg 06/01/25 08:30 06/02/25 07:39 Prednisone 2.5 Mg Tablet PO 7.5 mg DAILY@0800 SOHAM Administration Sodium Chloride 2 spray 05/28/25 09:10 05/28/25 10:43 Saline 0.65% James Soln 44 Ml Btl NASAL 2 spray QID PRN Administration Nasal Congestion Trimethoprim/Sulfamethoxazole 2 tab 05/30/25 09:00 06/03/25 05:13 Sulfamethoxazole/Trimethoprim 800/160 Mg Ds Tablet PO 2 tab Q8HR SOHAM Administration Radiology Results: ITS Impressions Chest CTA 05/27/25 20:02 IMPRESSION: 1. New bilateral upper lobe masses, largest measuring up to 2.4 cm, concerning for bronchogenic carcinoma. Abnormal hilar lymphadenopathy, suspicious for metastatic disease. 2: Right middle lobe and lingular airspace consolidation, consistent with pneumonia. 3: No large central pulmonary embolism. Evaluation of peripheral pulmonary arteries somewhat limited due to motion artifact and contrast bolus timing. Chest X-Ray 05/30/25 09:10 Impression: Compared to the prior study probable pneumonic process appears slightly improved, there is a new small right pleural effusion. Labs Labs: Laboratory Results - last 24 hr 05/29/25 06/03/25 04:44 04:35 WBC 9.8 RBC 4.33 Hgb 11.2 L Hct 36.3 L MCV 83.8 MCH 25.9 L MCHC 30.9 L RDW 16.0 H Plt Count 336 MPV 8.6 Immature Gran % (Auto) 5.8 H Neut % (Auto) 63.4 Lymph % (Auto) 20.8 [place] % (Auto) 8.0 Eos % (Auto) 1.1 Baso % (Auto) 0.9 Lymph # (Auto) 2.03 [place] # (Auto) 0.8 H Eos # (Auto) 0.1 Baso # (Auto) 0.1 Abs Immat Gran (auto) 0.57 H Absolute Neuts (auto) 6.2 Absolute Nucleated RBC 0.000 Nucleated RBC % 0.0 Sodium 127 L Potassium 4.4 Chloride 90 L Carbon Dioxide 34 H Anion Gap 3 L BUN 12 Creatinine 0.61 L Estim Creat Clear Calc 57 Estimated GFR > 60 Glucose 74 Calcium 8.4 Total Bilirubin < 0.1 L AST 33 ALT 23 Alkaline Phosphatase 70 Total Protein 6.2 L Albumin 3.3 L Blastomyces Antibody Negative Quality VTE Prophylaxis VTE prophylaxis: pharmacologic ordered
[2025-06-03] MEDS: METOPROLOL SUCCINATE EXT REL 25 MG TABCR PO (08:55)
[2025-06-03] MEDS: EMTRICITABINE-TENOFOVIR 100 MG-150 MG TABLET 2 TAB PO (08:55)
[2025-06-03] MEDS: NYSTATIN 100,000 UNITS/ML SUSP 5 ML ORAL.SUSP PO ×4 (08:55→20:59)
[2025-06-03] MEDS: LOSARTAN POTASSIUM 25 MG TABLET PO (08:57)
[2025-06-03] MEDS: BENZONATATE 100 MG CAPSULE 200 MG PO ×3 (08:57→17:36)
[2025-06-03] MEDS: DARUNAVIR 800 MG 800 EACH PO (08:58)
[2025-06-03] MEDS: RITONAVIR 100 MG 100 EACH PO (08:58)
[2025-06-03] MEDS: SODIUM CHLORIDE 0.9% IV 1,000 ML 100 ML IV CONT (09:33)
--- NOTE | 2025-06-03 10:11 | P.CONNP_ITS ---
Assessment and Plan Assessment and plan (1) Hyponatremia: Code(s): E87.1 - Hypo-osmolality and hyponatremia Status: Acute Assessment and Plan: the patient has hyponatremia. She did not have any issues from 2018 through 2021. However in April of 2024 her sodium level was low the . The next blood draw was in April of 2025 which was also low throughout that hospital stay which was for pneumonia and the current stay. Things that could contribute to low sodium include: Medications but she is not on any of these. 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 We should consider an MRI of the brain. Cancer: The patient does have a lung mass with possible Mets to lymph nodes. Lung disorder: The patient has COPD and currently has pneumonia. Notably, this year, all the sodiums were low during periods were she had pneumonia. so this alone may be enough to make her sodium low. Hormonal disorders: The patient is already on chronic steroids so I doubt if she has adrenal insufficiency. Hypothyroidism can do this, though, so will check a TSH. Most likely the issue is her pneumonia/ COPD/ possible lung cancer causing the hyponatremia. Will check serum and urine osmolality, TSH, urine sodium, serum protein electrophoresis to rule out pseudo hyponatremia, and continue her fluid restriction. She has been on a fluid restriction since yesterday after lunch so she has not really had 24hours of fluid restriction to evaluate whether that is enough to treat her hyponatremia. Will check another sodium level tomorrow on the fluid restriction. If the level continues to drop we can try salt tablets plus Lasix. (2) Lung mass: Code(s): R91.8 - Other nonspecific abnormal finding of lung field Status: Acute Assessment and Plan: Noted on chest x-ray (3) Community acquired pneumonia: Qualifiers: Laterality: unspecified laterality Qualified Code(s): J18.9 - Pneumonia, unspecified organism Code(s): J18.9 - Pneumonia, unspecified organism Status: Acute Assessment and Plan: she is getting antibiotics (4) HIV (human immunodeficiency virus infection): Qualifiers: HIV symptom status: unspecified Qualified Code(s): Z21 - Asymptomatic human immunodeficiency virus [HIV] infection status Code(s): B20 - Human immunodeficiency virus [HIV] disease Status: Acute Assessment and Plan: the patient is on HAART Tx (5) COPD (chronic obstructive pulmonary disease): Code(s): J44.9 - Chronic obstructive pulmonary disease, unspecified Status: Acute Assessment and Plan: she is on home oxygen and chronic treatments from pulmonary (6) Diastolic dysfunction: Code(s): I51.89 - Other ill-defined heart diseases Status: Acute Assessment and Plan: the patient has grade 1 diastolic dysfunction but normal systolic function History of Present Illness Reason for Consult Consult date: 06/03/25 Chief Complaint Chief complaint: COPD, pneumonia History of Present Illness Narrative: Roxanne is a very pleasant 65-year-old lady who has multiple medical problems including HIV on HAART therapy, COPD having stopped smoking about 4 years ago, recurrent pneumonia, home oxygen therapy, a lung mass concerning for bronchogenic carcinoma with Mets to localize lymph nodes, diastolic dysfunction grade 1, hypertension, cavernous hemangioma which is inoperable, and history of hysterectomy. The patient came in the hospital because of shortness of breath. Chest x-ray showed pneumonia. She has been placed on IV antibiotics. She is also getting breathing treatments and steroids. She is gradually improving. On admission her sodium level was 134 and this gradually improved to 137 but since then has dropped gradually to 127. She says she has been drinking some fluid but not a whole lot. The patient is not on SSRIs or SNR eyes, no PPI treatment, no diuretics, and no narcotics. She is on multiple meds for her HAART Tx however none of them cause hyponatremia. she has no history of stroke or brain tumor or any symptoms thereof. She does have the lung mass suspicious for cancer and she does have chronic obstructive pulmonary disease The patient stopped smoking 4 years ago. She did smoke for decades before that. She does not drink alcohol. Review of Systems 2 Constitutional: Constitutional: Reports no additional constitutional complaints Eyes: Eyes: Reports no additional eye complaints ENT: Reports system reviewed and no additional complaints, except as documented Cardiovascular: Cardiovascular: Reports no additional cardiovascular complaints Respiratory: Respiratory: Reports no additional respiratory complaints Gastrointestinal: Gastrointestinal: Reports no additional gastrointestinal complaints Genitourinary: Genitourinary: Reports no additional female genitourinary complaints Musculoskeletal: Musculoskeletal: Reports no additional musculoskeletal complaints Integumentary/Breasts: Skin/Breast: Reports system reviewed and no additional complaints, except as docu Neurologic: Reports system reviewed and no additional complaints, except as documented Psychiatric: Psychiatric: Reports no additional psychiatric complaints Endocrine: Endocrine: Reports no additional endocrine complaints [facility] Past Medical History Medical History (Updated 06/03/25 @ 10:17 by Kenan Miller MD) Systolic heart failure Diastolic dysfunction Without diagnosis of CHF. Echo 08/2022: EF 50 55%, grade 1 diastolic dysfunction, normal right ventricular systolic function, mild mitral and tricuspid valve regurgitation Chronic steroid use 10 mg prednisone daily Essential hypertension Chronic hypoxic respiratory failure, on home oxygen therapy Rupture long head biceps tendon Cavernous hemangioma HIV (human immunodeficiency virus infection) COPD (chronic obstructive pulmonary disease) Surgical History Surgical History History of tonsillectomy History of hysterectomy Family History Family History Grandparent Diabetes mellitus Mother Diabetes mellitus Social History Social History (Updated 05/27/25 @ 23:55 by Char Sierra DO) Social History: She lives at home with her . She states that they been for few years. Her daughter recently moved in with the patient's 2 grand children and the daughters 2 dogs and 1 cat. She reports she used to smoke 1 pack of cigarettes per day from the time she was 7 years old in till 2020. She denies any illicit substance use. It sounds as if the patient likely drink at least a moderate amount of alcohol if not drinking on a daily basis for many years but quit drinking in 1994. 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 Code status: Full code Surrogate decision maker: Tha () Smoking packs per day: 1 Smoking cigarettes per day: 20.0 Years smoked: 55 Smoking pack-years: 55.00 Smoking status: Former smoker Second hand tobacco smoke exposure: Yes Alcohol intake: former Alcohol use details: She used to drink somewhat frequently when she was a panel fitter but quit in 1994. Substance use: never Substance use type: does not use Do You Feel Safe in your Home?: Yes Lack of Transportation: No Lack of Food: Never True Current Housing: I Have Housing Concerned About Future Housing: No Difficulty Paying Gas/Electric Bills: No Difficulty Paying for Meds: No Currently Unemployed: No Education: Bachelor's Degree Difficulty w/ Childcare or Family Care: No Spiritual care concerns: No Meds Home Medications and Allergies Home Medications ?Medication ?Instructions ?Recorded ?Confirmed ?Type budesonide-formoterol HFA 80 2 puff inhalation BID 03/2505/28/25 History mcg-4.5 mcg/actuation aerosol inhaler (Symbicort) albuterol sulfate 90 mcg/actuation 1 inh inhalation QI D PRN shortness 04/06/24 05/28/25 Rx aerosol inhaler of breath or wheezing #6.7 g jonnie ipratropium 0.5 mg-albuterol 3 mg 3 ml inhalation Q6H PRN shortness 04/06/24 05/28/25 Rx (2.5 mg base)/3 mL nebulization of breath or wheezing #90 mL soln losartan 25 mg tablet 25 mg PO DAILY #30 tabs 0701/2505/28/25 Rx prednisone 10 mg tablet 10 mg PO DIRECTED #62 tab s 04/06/24 05/28/25 Rx tiotropium bromide 1.25 2 puff inhalation DAILY 06/2705/28/25 History mcg/actuation mist for inhalation (Spiriva Respimat) darunavir 800 mg tablet 800 mg PO DAILY 04/12/25 History emtricitabine 200 mg-tenofovir 1 tablet PO DAILY 04/1205/28/25 History disoproxil fumarate 300 mg tablet (Truvada) ritonavir 100 mg tablet 100 mg PO DAILY 04/12/25 History sodium chloride 0.65 % nasal spray 2 spray intranasal QID PRN nasal 04/12/25 05/28/25 History aerosol ([place] Saline) congestion guaifenesin 600 mg tablet, 1,200 mg (2 x 600 mg) PO Q1 2HR #30 04/16/25 05/28/25 Rx extended release 12 hr (Mucus tabs Relief ER) prednisone 10 mg tablet 10 mg PO DIRECTED #18 tab s 04/16/25 05/28/25 Rx Allergies Allergy/AdvReac Type Severity Reaction Status Date / Time meperidine Allergy Unknown anaphlaxis Verified 04/12/25 17:57 orange Allergy Unknown Hives Verified 04/12/25 17:57 Vital Signs Vital Signs - 24 hr 06/02/25 12:03 06/02/25 13:23 06/02/25 13:23 Temperature Pulse Rate 80 78 78 Respiratory Rate 20 20 Blood Pressure Pulse Oximetry 94 Oxygen Delivery Oxygen Flow Rate 2 06/02/25 13:29 06/02/25 13:45 06/02/25 16:03 Temperature Pulse Rate 76 78 78 Respiratory Rate 20 16 Blood Pressure 117/69 Pulse Oximetry 95 Oxygen Delivery Oxygen Flow Rate 06/02/25 20:00 06/02/25 20:34 06/02/25 20:44 Temperature Pulse Rate 75 88 88 Respiratory Rate 20 20 Blood Pressure Pulse Oximetry 93 Oxygen Delivery Nasal Cannula Oxygen Flow Rate 2 06/02/25 20:45 06/02/25 21:25 06/02/25 22:08 Temperature 98.4 F Pulse Rate 85 74 Respiratory Rate 20 18 Blood Pressure 105/61 Pulse Oximetry 96 96 Oxygen Delivery Nasal Cannula Oxygen Flow Rate 2 06/03/25 00:00 06/03/25 02:57 06/03/25 03:00 Temperature Pulse Rate 73 69 69 Respiratory Rate 16 16 Blood Pressure Pulse Oximetry 95 Oxygen Delivery Nasal Cannula Oxygen Flow Rate 2 06/03/25 04:00 06/03/25 04:48 06/03/25 08:00 Temperature 97 F L Pulse Rate 76 78 72 Respiratory Rate 16 Blood Pressure 142/62 H Pulse Oximetry 97 Oxygen Delivery Oxygen Flow Rate 06/03/25 08:19 06/03/25 08:55 06/03/25 09:02 Temperature Pulse Rate 73 80 84 Respiratory Rate 20 Blood Pressure 122/73 Pulse Oximetry 94 96 Oxygen Delivery Nasal Cannula Oxygen Flow Rate 2 Exam 2 Narrative: Exam Narrative: Well developed well-nourished Female in no acute distress Skin is warm and dry without rash Head normocephalic atraumatic Eyes normal sclerae and conjunctivae Mouth normal lips teeth and gums Neck no nodes no thyromegaly no carotid bruits Axillae no nodes Back no CVA tenderness Lungs symmetric and clear to auscultation and percussion. Lung sounds are a bit distant diffusely. Heart regular rate and rhythm without rub or gallop Abdomen bowel sounds positive soft nontender, no HSM, masses, or bruits. Extremities no cyanosis, clubbing, or edema Pulses 2+ equal in radial arteries Psychological not anxious or depressed Neuro alert and oriented x3 motor 5/5 cranial nerves 2-12 intact reflexes 2+ and equal in the biceps and patellar tendons cerebellar normal rapid alternating movements Results Lab Results 06/03/25 04:35 06/03/25 04:35 Lab results: Most recent lab results ABG pH 7.434 (7.350-7.450) 05/30/25 08:45 ABG pCO2 55.1 mmHg (35.0-45.0) H 05/30/25 08:45 ABG pO2 67.0 mmHg (80.0-100.0) L 05/30/25 08:45 ABG HCO3 36.1 mEq/l (22.0-26.0) H 05/30/25 08:45 ABG O2 Saturation 93.5 % (95.0-100.0) L 05/30/25 08:45 Calcium 8.4 mg/dL (8.4-10.2) 06/03/25 04:35 Magnesium 2.0 mg/dL (1.6-2.3) 05/27/25 18:26
[2025-06-03 11:12] LABS: Thyroid Stimulating Hormone Reflex 2.610 uIU/mL (0.465-4.68)
[2025-06-03] MEDS: BUDESONIDE RESPULE NEB 0.5 MG/2 ML AMP INHALATION (20:27)
[2025-06-04] VITALS (12 sets, daily range): BP systolic 121; BP diastolic 75; PULSE 77–86; RESP 18–20; TEMP 36.7; O2SAT 91–96
[2025-06-04] MEDS: IPRATROPIUM 0.5 MG/ALBUTEROL SULFATE 2.5 MG AMPUL.NEB 3 ML INHALATION ×2 (03:06→08:01)
[2025-06-04 04:41] LABS: Hematocrit 34.0 % (37.0-47.0); Hemoglobin 10.6 g/dL (12.0-15.0); Immature Granulocyte Percent A 5.0 % (0-0.5); Lymphocytes Absolute Auto 1.93 K/mm3 (0.9-3.2); Mean Corpuscular HGB Conc 31.2 g/dl (32-36); Mean Corpuscular Hemoglobin 26.0 pg (26-34); Mean Corpuscular Volume 83.5 fl (80-100); Nucleated Red Blood Cells Absolute Auto 0.000 K/mm3 (0.0-0.012); Nucleated Red Blood Cells Perc 0.0 % (0.0-0.2); Platelet Count Result 330 k/mm3 (150-375); Red Blood Count 4.07 M/mm3 (4.2-5.4); White Blood Count 8.2 K/mm3 (4.5-10.0)
[2025-06-04 04:58] LABS: Alanine Aminotransferase 25 U/L (6-35); Albumin Level 3.0 g/dL (3.5-5.1); Alkaline Phosphatase 61 U/L (38-126); Anion Gap 2 mmol/L (4-12); Aspartate Amino Transferase 35 U/L (14-36); Bilirubin,Total < 0.1 mg/dL (0.2-1.3); Blood Urea Nitrogen 15 mg/dL (7-17); Calcium 8.0 mg/dL (8.4-10.2); Carbon Dioxide 31 mmol/L (22-30); Chloride 95 mmol/L (98-107); Estimated CRCL calculation 60 ml/min; Estimated Glomerular Filt Rate > 60; Glucose 82 mg/dL (65-110); Potassium 4.5 mmol/L (3.4-5.0); Sodium 128 mmol/L (137-145); Total Protein 5.9 g/dL (6.3-8.2)
[2025-06-04] MEDS: SULFAMETHOXAZOLE/TRIMETHOPRIM 800/160 MG DS TABLET 2 TAB PO (06:18)
[2025-06-04] MEDS: BUDESONIDE RESPULE NEB 0.5 MG/2 ML AMP INHALATION (08:01)
[2025-06-04] MEDS: ONDANSETRON HCL ODT 4 MG TABLET PO (08:35)
[2025-06-04] MEDS: EMTRICITABINE-TENOFOVIR 100 MG-150 MG TABLET 2 TAB PO (08:36)
[2025-06-04] MEDS: LOSARTAN POTASSIUM 25 MG TABLET PO (08:36)
[2025-06-04] MEDS: METOPROLOL SUCCINATE EXT REL 25 MG TABCR PO (08:37)
[2025-06-04] MEDS: BENZONATATE 100 MG CAPSULE 200 MG PO (08:37)
[2025-06-04] MEDS: NYSTATIN 100,000 UNITS/ML SUSP 5 ML ORAL.SUSP PO (08:38)
[2025-06-04] MEDS: DARUNAVIR 800 MG 800 EACH PO (08:38)
[2025-06-04] MEDS: RITONAVIR 100 MG 100 EACH PO (08:38)
--- NOTE | 2025-06-04 09:40 | P.PNNP_ITS ---
Progress Note: A&P Assessment and Plan (1) Hyponatremia: Code(s): E87.1 - Hypo-osmolality and hyponatremia Status: Acute Assessment and Plan: the patient has hyponatremia. this has been occurring since April of 2024. Urine sodium is 1.02 osmolality is and SPEP are pending the patient is on steroid TSH is normal Things that could contribute to low sodium include: Medications but she is not on any of these. 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 She has the lung mass so could there be brain Mets? I talked with Dr. Vigil about this. We could get an MRA and evaluate both issues but patient is eager for discharge and is stable for discharge otherwise. I do not know if an MRA could be done here on a holiday. It could be done as an ou tpatient as well since she has no symptoms. Cancer: The patient does have a lung mass with possible Mets to lymph nodes. Lung disorder: The patient has COPD and currently has pneumonia. It is possible it the sodium level may get easier to control once the pneumonia is improved but still has the lung mass in the background. At this point fluid restriction seems to be keeping the sodium at a reasonable level. I do not think we need to add any other medication for this. Okay for discharge as long she gets her MR angio as an outpatient long discussion with patient and with Dr. Vigil. (2) Lung mass: Code(s): R91.8 - Other nonspecific abnormal finding of lung field Status: Acute Assessment and Plan: Noted on chest x-ray (3) Community acquired pneumonia: Qualifiers: Laterality: unspecified laterality Qualified Code(s): J18.9 - Pneumonia, unspecified organism Code(s): J18.9 - Pneumonia, unspecified organism Status: Acute Assessment and Plan: she is getting antibiotics (4) HIV (human immunodeficiency virus infection): Qualifiers: HIV symptom status: unspecified Qualified Code(s): Z21 - Asymptomatic human immunodeficiency virus [HIV] infection status Code(s): B20 - Human immunodeficiency virus [HIV] disease Status: Acute Assessment and Plan: the patient is on HAART Tx (5) COPD (chronic obstructive pulmonary disease): Code(s): J44.9 - Chronic obstructive pulmonary disease, unspecified Status: Acute Assessment and Plan: she is on home oxygen and chronic treatments from pulmonary (6) Diastolic dysfunction: Code(s): I51.89 - Other ill-defined heart diseases Status: Acute Assessment and Plan: the patient has grade 1 diastolic dysfunction but normal systolic function Subjective Date/time seen: 06/04/25 09:40 Interval history: patient is alert. She feels better. Eager for discharge Review of Systems Cardiovascular: Cardiovascular: Reports no additional cardiovascular complaints Respiratory: Respiratory: Reports no additional respiratory complaints Gastrointestinal: Gastrointestinal: Reports no additional gastrointestinal complaints Genitourinary: Genitourinary: Reports no additional female genitourinary complaints Exam Narrative: WDWN in NAD skin no rash head ncat lungs clear cor reg no rub abd BS+ nontender and soft ext no edema. Objective Data Vital Signs Vital Signs: Vital Signs - 24 hr 06/03/25 12:00 06/03/25 13:18 06/03/25 13:54 Temperature Pulse Rate 69 89 89 Respiratory Rate 20 20 Blood Pressure 142/99 H Pulse Oximetry 92 91 Oxygen Delivery Nasal Cannula Oxygen Flow Rate 2 Fraction of Inspired Oxygen 06/03/25 13:54 06/03/25 14:02 06/03/25 16:00 Temperature Pulse Rate 89 93 78 Respiratory Rate 20 20 Blood Pressure Pulse Oximetry Oxygen Delivery Oxygen Flow Rate Fraction of Inspired Oxygen 06/03/25 20:00 06/03/25 20:00 06/03/25 20:10 Temperature 97.6 F Pulse Rate 88 82 79 Respiratory Rate 20 20 Blood Pressure 119/60 Pulse Oximetry 92 97 Oxygen Delivery Nasal Cannula Oxygen Flow Rate 2 Fraction of Inspired Oxygen 28 06/03/25 20:28 06/03/25 20:31 06/03/25 20:37 Temperature Pulse Rate 84 84 88 Respiratory Rate 20 20 20 Blood Pressure Pulse Oximetry 92 Oxygen Delivery Nasal Cannula Oxygen Flow Rate 2 Fraction of Inspired Oxygen 06/03/25 21:00 06/04/25 00:00 06/04/25 03:06 Temperature Pulse Rate 82 77 84 Respiratory Rate 20 20 Blood Pressure Pulse Oximetry 95 Oxygen Delivery Nasal Cannula Oxygen Flow Rate 2 Fraction of Inspired Oxygen 06/04/25 03:20 06/04/25 04:00 06/04/25 05:21 Temperature 98.1 F Pulse Rate 86 84 82 Respiratory Rate 20 18 Blood Pressure 121/75 Pulse Oximetry 93 Oxygen Delivery Oxygen Flow Rate Fraction of Inspired Oxygen 06/04/25 08:02 06/04/25 08:14 06/04/25 08:37 Temperature Pulse Rate 82 86 78 Respiratory Rate 20 20 Blood Pressure Pulse Oximetry Oxygen Delivery Oxygen Flow Rate Fraction of Inspired Oxygen Intake/Output Intake/Output: Intake & Output 06/01/25 06/02/25 06/03/25 06/04/25 23:59 23:59 23:59 23:59 Intake Total 740 1430 1979 460 Output Total 400 Balance 740 1430 1579 460 Meds/Results Medications: Active Medications Generic Name Dose Route Start Last Admin Trade Name Freq PRN Reason Stop Dose Admin Albuterol 1 puff 05/28/25 09:10 05/28/25 16:23 Albuterol Sulfate (*Sp) Aerosol 1 Puff INHALATION 1 puff QID PRN Administration Shortness Of Breath Or Wheezing Albuterol/Ipratropium 3 ml 05/28/25 02:00 06/04/25 08:01 Ipratropium 0.5 Mg/Albuterol Sulfate 2.5 Mg Ampul.Neb 3 Ml INHALATION 3 ml Q6HRT SOHAM Administration Benzonatate 200 mg 05/29/25 13:00 06/04/25 08:37 Benzonatate 100 Mg Capsule PO 200 mg TID SOHAM Administration Budesonide 0.5 mg 05/29/25 10:00 06/04/25 08:01 Budesonide Respule Neb 0.5 Mg/2 Ml Amp INHALATION 0.5 mg Q12HRT SOHAM Administration Emtricitabine/Tenofovir 2 tab 05/28/25 09:00 06/04/25 08:36 Emtricitabine-Tenofovir 100 Mg-150 Mg Tablet PO 2 tab DAILY SOHAM Administration Enoxaparin Sodium 40 mg 05/31/25 09:00 06/04/25 08:38 Enoxaparin 40 Mg/0.4 Ml Syringe SUB-Q Not Given DAILY SOHAM Levofloxacin 750 mg 06/01/25 16:00 06/03/25 15:17 Levofloxacin 750 Mg Tablet PO 06/05/25 14:01 750 mg DAILY@1400 SOHAM Administration Losartan Potassium 25 mg 05/28/25 09:00 06/04/25 08:36 Losartan Potassium 25 Mg Tablet PO 25 mg DAILY SOHAM Administration Metoprolol Succinate 25 mg 06/02/25 09:00 06/04/25 08:37 Metoprolol Succinate Ext Rel 25 Mg Tabcr PO 25 mg QAM SOHAM Administration Darunavir 800 Mg 800 mg 05/28/25 15:50 06/04/25 08:38 Tablet Home Med PO 06/27/25 15:49 800 mg DAILY SOHAM Administration Ritonavir 100 Mg 100 mg 05/28/25 15:50 06/04/25 08:38 Tablet Homemed PO 06/27/25 15:49 100 mg DAILY SOHAM Administration Nystatin 5 ml 05/28/25 09:00 06/04/25 08:38 Nystatin 100,000 Units/Ml Susp 5 Ml Oral.Susp PO 5 ml QID SOHAM Administration Ondansetron HCl 4 mg 05/31/25 08:58 06/04/25 08:35 Ondansetron Hcl Odt 4 Mg Tablet PO 4 mg Q6H PRN Administration Nausea And Vomiting Prednisone 7.5 mg 06/01/25 08:30 06/04/25 08:36 Prednisone 2.5 Mg Tablet PO 7.5 mg DAILY@0800 SOHAM Administration Sodium Chloride 2 spray 05/28/25 09:10 05/28/25 10:43 Saline 0.65% James Soln 44 Ml Btl NASAL 2 spray QID PRN Administration Nasal Congestion Trimethoprim/Sulfamethoxazole 2 tab 05/30/25 09:00 06/04/25 06:18 Sulfamethoxazole/Trimethoprim 800/160 Mg Ds Tablet PO 2 tab Q8HR SOHAM Administration Radiology Results: ITS Impressions Chest CTA 05/27/25 20:02 IMPRESSION: 1. New bilateral upper lobe masses, largest measuring up to 2.4 cm, concerning for bronchogenic carcinoma. Abnormal hilar lymphadenopathy, suspicious for metastatic disease. 2: Right middle lobe and lingular airspace consolidation, consistent with pneumonia. 3: No large central pulmonary embolism. Evaluation of peripheral pulmonary arteries somewhat limited due to motion artifact and contrast bolus timing. Chest X-Ray 05/30/25 09:10 Impression: Compared to the prior study probable pneumonic process appears slightly improved, there is a new small right pleural effusion. Labs Labs: Laboratory Results - last 24 hr 06/03/25 06/03/25 06/04/25 04:35 15:20 04:02 WBC 8.2 RBC 4.07 L Hgb 10.6 L Hct 34.0 L MCV 83.5 MCH 26.0 MCHC 31.2 L RDW 16.1 H Plt Count 330 MPV 9.1 Immature Gran % (Auto) 5.0 H Neut % (Auto) 60.6 Lymph % (Auto) 23.5 [place] % (Auto) 9.3 H Eos % (Auto) 1.0 Baso % (Auto) 0.6 Lymph # (Auto) 1.93 [place] # (Auto) 0.8 H Eos # (Auto) 0.1 Baso # (Auto) 0.1 Abs Immat Gran (auto) 0.41 H Absolute Neuts (auto) 5.0 Absolute Nucleated RBC 0.000 Nucleated RBC % 0.0 Sodium 128 L Potassium 4.5 Chloride 95 L Carbon Dioxide 31 H Anion Gap 2 L BUN 15 Creatinine 0.58 L Estim Creat Clear Calc 60 Estimated GFR > 60 Glucose 82 Serum Osmolality Cancelled Calcium 8.0 L Total Bilirubin < 0.1 L AST 35 ALT 25 Alkaline Phosphatase 61 Total Protein 5.9 L Albumin 3.0 L TSH (Reflex) 2.610 Ur Random Sodium 102
--- NOTE | 2025-06-04 10:28 | P.DS_ITS ---
DS: Admitting Diagnosis Discharge Date 06/04/2025 Admitting Diagnosis Sepsis, pneumonia DS: Discharge Diagnosis Discharge Diagnosis (1) Sepsis: Qualifiers: Acute respiratory failure type: unspecified Sepsis acute organ dysfunction status: with acute organ dysfunction Sepsis type: sepsis due to unspecified organism Severe sepsis acute organ dysfunction type: acute respiratory failure Severe sepsis shock status: without septic shock Qualified Code(s): A41.9 - Sepsis, unspecified organism; R65.20 - Severe sepsis without septic shock; J96.00 - Acute respiratory failure, unspecified whether with hypoxia or hypercapnia Code(s): A41.9 - Sepsis, unspecified organism Status: Acute Assessment and Plan: * sepsis present on admission evidenced by tachycardia, tachypnea, increased hypoxia, leukocytosis * LA WNL, BP stable * received 1L NS in ED * source: pneumonia, continue management as below * WBC trending up likely due to steroids. Clinically improving. * follow-up blood cultures - NGTD * WBC down trending, 15.5 -> 11.9 -> 10.0 -> 9.1 * Remains afebrile * Resolved (2) Community acquired pneumonia: Qualifiers: Laterality: unspecified laterality Qualified Code(s): J18.9 - Pneumonia, unspecified organism Code(s): J18.9 - Pneumonia, unspecified organism Status: Acute Assessment and Plan: * recent admission 04/2025 for pneumonia, treated with Rocephin and azithromycin, discharged on Levaquin * CTA chest with RML and lingular airspace consolidation consistent with pneumonia * MRSA DNA positive * blood cultures NGTD * sputum culture, legionella, strep, blastomycosis and histo antigens and mycoplasma antibodies pending * infectious disease consulted in light of history of HIV and recurrent pneumonia, recommended to continue cefepime, vanc and azithromycin. * CD4 count 56 * awaiting viral load. Genotype analysis sent * Pulmonology/ID following * Repeat CXR: Compared to the prior study probable pneumonic process appears slightly improved, there is a new small right pleural effusion * Pending urine Legionella, pneumococcal, mycoplasma IgM, sputum for fungus and sputum for PJP * Anticipate a 21 day course of currently dosed Bactrim with transition to 1 double-strength tablet daily (or 1 tablet every Wednesday - Wednesday- Wednesday ) after completing treatment dose. * 06/02: Per ID - switch Cefepime to Levofloxacin 750mg qdaily x5 days * MRSA + sputum - continue Levofloxacin (3) COPD with acute lower respiratory infection: Code(s): J44.0 - Chronic obstructive pulmonary disease with (acute) lower respiratory infection Status: Acute Assessment and Plan: * no wheezing this AM. Improving cough * Pulm following * decreased the prednisone to 10 mg p.o. q.day, continue DuoNebs q.6, budesonide nebs b.i.d., guaifenesin 1200 p.o. b.i.d. and Tessalon Perles 200 t.i.d. * discontinue patient's prednisone today - will decrease to 7.5 p.o. q.day today and we continue this for 1 week and then decrease to 5 mg p.o. q.day * Per Pulm recommendations upon discharge: * Prednisone 7.5 mg p.o. q.day through 06/07/2025 then 5 mg p.o. q.day * Symbicort 80-4.5 at 2 puffs b.i.d. * Spiriva Respimat 1.25 mcg at 2 puffs q.day * Rescue albuterol inhaler 2 puffs q.4 hours p.r.n. shortness of breath or wheezing * Rescue albuterol nebulizer 2.5 mg Q 4 hours p.r.n. shortness of breath or wheezing * Oxygen per formal home O2 assessment which I have ordered today. * When she naps or sleeps: Oxygen 4 L nasal cannula. (4) Hyponatremia: Code(s): E87.1 - Hypo-osmolality and hyponatremia Status: Acute Assessment and Plan: * Upon admission, Na 134 * Has been hovering around the low 130s throughout hospitalization * 06/03: Na 127 * Continue Fluid restrict 1500ml daily, encourage increase salt intake * Nephro consult * Multiple factors likely contributory to low sodium -underlying lung cancer, pneumonia, possible hypothyroidism * Check serum/urine osmolality, TSH, urine sodium, serum protein electrophoresis to rule out pseudohyponatremia * Continue fluid restriction * Low recheck sodium tomorrow on fluid restriction and consider salt tablets plus Lasix if still low (5) MRSA (methicillin resistant staph aureus) culture positive: Code(s): Z22.322 - Carrier or suspected carrier of Methicillin resistant Staphylococcus aureus Status: Acute Assessment and Plan: * Respiratory pathogen panel taken on 05/28 positive for MRSA * Susceptibility to levofloxacin * Has already been switched to oral levofloxacin by ID * Monitor for fever, developing leukocytosis (6) Acute on chronic respiratory failure with hypoxia and hypercapnia: Code(s): J96.21 - Acute and chronic respiratory failure with hypoxia; J96.22 - Acute and chronic respiratory failure with hypercapnia Status: Acute Assessment and Plan: * on 2-3L NC O2 baseline * ABG with pH 7.38, pCO2 60.4, pO2 50.5. pCO2 higher than baseline, but work of breathing improved so BiPAP was deferred. * required up to 5L in ED, now back to baseline 3L * monitor O2 sat - 95% on 2L (7) Lung mass: Code(s): R91.8 - Other nonspecific abnormal finding of lung field Status: Acute Assessment and Plan: * CTA chest with new bilateral upper lobe masses, largest 2.4 cm concerning for bronchogenic carcinoma * pulmonology consulted, will need outpatient bronchoscopy with EUS at tertiary center likely as outpatient * Pulm discussed with Dr. Owen, [facility] * he prefers her to complete treatment for pneumonia and then his staff will call him to set up an outpatient bronchoscopy with EBUS (8) HIV (human immunodeficiency virus infection): Qualifiers: HIV symptom status: unspecified Qualified Code(s): Z21 - Asymptomatic human immunodeficiency virus [HIV] infection status Code(s): B20 - Human immunodeficiency virus [HIV] disease Status: Acute Assessment and Plan: * managed on darunavir, ritonavir, and Truvada - continue * CD4 count 176 04/2024 - patient was off medication at this time. Reports she restarted ART 2 months ago. * viral load pending * CD4 count 56 * ID following * Begin empiric PJP coverage with Bactrim double-strength p.o. 2 tablets q.8 hours * Pending expectorated sputum for routine Gram stain and culture, fungal culture, cytopathology and special stains for PJP * Await viral load and obtain genotype analysis * Now on empiric PJP coverage with Bactrim DS (9) Systolic heart failure: Code(s): I50.20 - Unspecified systolic (congestive) heart failure Status: Inactive Assessment and Plan: * Echo 05/30: EF 45-50, mildly enlarged LV dimension, G1DD, Mild AVR/TVR, moderate MVR * Cardiology consulted * No chest pain, not in heart failure * continue losartan 25 mg p.o. daily and add metoprolol succinate 25 mg p.o. daily * Low dose diuretic if SOB worsens * f/u outpt (10) Chronic steroid use: Status: Acute Assessment and Plan: * on prednisone 10mg daily DS: Summary Hospital Course Reason for hospitalization: Increased shortness of breath Hospital Course: Per HPI: 65-year-old female with a past medical history of COPD with chronic hypoxic respiratory failure on home O2 of 2 L, chronic prednisone therapy of 10 mg daily,, HV and essential hypertension who presented to the ER from home via EMS due to increased shortness of breath. Patient is usually on 2L home O2 but has been told by her director of the biophysics facility that she can increase up to 3 L if she is having trouble breathing. On EMS arrival to her residence she was satting 89% on 3 L. Her O2 sat improved from 89% up to 95% on 5 L. Her ABG in the ER on 3 L O2 demonstrated pH of 7.38 pCO2 of 60 PO2 of 50 with bicarb of 35.6 and O2 sat of 84.3. She received DuoNeb treatment and IV Solu-Medrol. She was sent for imaging with chest x-ray demonstrating right lower lobe pneumonia and subsequent CT for rule out of pulmonary embolism given tachycardia, tachypnea and pleuritic right-sided chest pain with CT demonstrating right middle lobe and lingular airspace consolidation consistent with pneumonia. She also had new bilateral upper lobe masses noted on my my review with Radiology suggesting abnormal hilar lymphadenopathy concerning for bronchogenic carcinoma and suspicious for metastatic disease to the lymph nodes. Given the pneumonia finding and the fact that patient met sepsis criteria blood cultures of were obtained and the patient was started on Rocephin and azithromycin. Patient had recently been hospitalized 04/12 through 04/16 in treated with Rocephin and azithromycin in subsequently discharged on Augmentin. She reports that she felt better after last hospitalization was started to develop some recurrent pleuritic right-sided chest pain about 3 days ago. Then today she noticed increased shortness of breath and increased cough. She reports that she always has a cough productive of dark sputum. Her sputum production is unchanged from baseline. She denies any fevers or chills. She reports a fair appetite. She has not had any nausea or vomiting. She denies any recent ill contacts. She has noticed increased wheezing. She reports that she always has labored respirations but was more so today. She did try using her home nebulizer treatments with only minimal improvement in symptoms. She reports that she feels moderately better since receiving steroids and breathing treatments in the ER. She reports that she is still having some pleuritic chest pain but did not like the side effects of the morphine. She stated that she did well in the past with Toradol. I offered her Toradol an option but told her that she would need to be on SCDs for DVT prophylaxis instead of Lovenox and then she declined the use of Toradol because she does not want SCDs. Hospital Course: Pulmonology was consulted regarding community-acquired pneumonia with underlying history of COPD and diagnosis of severe apical predominant panlobular emphysema, HIV. She was recently discharged from the hospital after a stay on 04/12-04/16. Patient was initially switched to vanc, cefepime and azithromycin. Urine pneumococcal, urine Legionella, extended respiratory pathogen panel and serum mycoplasma IgM ordered. Infectious disease also consulted regarding underlying HIV with concomitant Pneumonia infection. Expectorated sputum for routine Gram stain and culture, fungal culture, cytopathology, and special stains for PJP were ordered by ID. CD4 count was also ordered as recent viral load was less than 300 while on Truvada and new CD4 count was 56. Patient therefore at risk for HIV associated hypertension stick infections. Infectious Disease began empiric PJP coverage with Bactrim double strength p.o. two tablets q.8 hours. Patient remained on prednisone but per pulmonology, we plan to decrease prednisone to 7.5 mg daily until 06/07 with a decrease to 5 mg daily after that. We continued IV antibiotics until Infectious Disease recommended switching to levofloxacin 750 mg p.o. daily x5 days, starting from 06/01. Infectious Disease also recommended continuing Bactrim for 21 total days, ending on 06/20. Patient continued to progress well throughout hospitalization, however she continued to have sodium levels in the low 130s until 06/03 when she had a sodium level of 128. Multiple factors likely causative for hyponatremia, including underlying pneumonia, COPD and possible lung cancer. Nephrology rec ommended continuing fluid restriction as this was set 06/02 at 1500 mL. The continue to monitor hyponatremia until 06/04, when sodium increased slightly. Urine sodium was 1.02, osmolality and SPEP are pending. TSH normal. Once again, multiple factors likely causative for hyponatremia, but Nephrology does not think any further hospitalization is required to correct sodium to baseline level. On 06/04, patient continued to endorse significant improvement of symptoms, O2 requirement still at 2 L nasal cannula, however the patient has been using baseline oxygen all the time for the past several months. Home O2 evaluation has been ordered. She denies any chest pain, shortness a breath, nausea/vomiting, abdominal pain at this time. Pulmonology wrote up specific discharge instructions regarding her COPD and Infectious Disease has outlined continued antibiotic coverage. Nephrology cleared patient for discharge from their standpoint as long as she gets in MR angiogram as an outpatient. I will have her follow-up with Hematology/Oncology as an outpatient to schedule a brain MRA. Patient is amenable to this plan. Status at Discharge Functional status at discharge: independent ambulation Overall status at discharge: patient is progressing back to baseline Time Spent with Patient Time attestation: Total time spent providing and/or coordinating discharge services: 42 Exam Narrative: General: NAD, chronically ill-appearing Eyes: EOMI ENT: neck supple Cardiovascular: Regular rate and rhythm Respiratory: Clear to auscultation, respirations even and unlabored on 2L NC Gastrointestinal: Soft, non tender Genitourinary: no suprapubic tenderness Musculoskeletal: No edema Skin: warm, dry Neuro: Alert. Psych: Mood appropriate Const: Other: Appears older than stated age, cachectic, acutely ill-appearing, sitting up in bed with head of bed at almost 90? HENMT: Other: Head is normocephalic atraumatic, eyes are some what sunken, mucous membranes are moist, no oral pharyngeal erythema Eyes: Other: Pupils are equal and reactive, bilateral cataracts noted Neck: Other: No lymphadenopathy, no JVD Resp: Other: No tachypnea, accessory muscle use. Speaking in full sentences, no adventitious lung sounds on exam Cardio: Other: Regular rate/rhythm, 2+ bilateral radial pedal pulses, no murmur GI: Other: Firm, nontender, normoactive bowel sounds Skin: Other: No pallor, non jaundice, 2-3 second cap refill, no mottling Neuro: Other: Alert oriented x4, speech is clear, no facial asymmetry, no localizing neurologic deficits noted during the course of conversation Extrem: Other: No cyanosis, no edema, moves all extremities equally, generalized muscle wasting Psych: Other: Appropriate mood and affect, pleasant and cooperative, judgment and insight intact DS: Data Data Completed and Pending Labs on day of discharge: Labs from last 24 hours 06/04/25 06/03/25 06/03/25 04:02 15:20 04:35 WBC 8.2 RBC 4.07 L Hgb 10.6 L Hct 34.0 L MCV 83.5 MCH 26.0 MCHC 31.2 L RDW 16.1 H Plt Count 330 MPV 9.1 Immature Gran % (Auto) 5.0 H Neut % (Auto) 60.6 Lymph % (Auto) 23.5 Alpine % (Auto) 9.3 H Eos % (Auto) 1.0 Baso % (Auto) 0.6 Lymph # (Auto) 1.93 Alpine # (Auto) 0.8 H Eos # (Auto) 0.1 Baso # (Auto) 0.1 Abs Immat Gran (auto) 0.41 H Absolute Neuts (auto) 5.0 Absolute Nucleated RBC 0.000 Nucleated RBC % 0.0 Sodium 128 L Potassium 4.5 Chloride 95 L Carbon Dioxide 31 H Anion Gap 2 L BUN 15 Creatinine 0.58 L Estim Creat Clear Calc 60 Estimated GFR > 60 Glucose 82 Serum Osmolality Pending Calcium 8.0 L Total Bilirubin < 0.1 L AST 35 ALT 25 Alkaline Phosphatase 61 Total Protein 5.9 L Total Protein (PEP) Pending Albumin 3.0 L Albumin (PEP) Pending Globulin (PEP) Pending Albumin/Globulin Ratio Pending [id number] Pending Msxuz-3-Vghaaoeuc Pending Beta Globulins Pending Gamma Globulins Pending TSH (Reflex) 2.610 Urine Osmolality Pending Ur Random Sodium 102 Pr Electrophoresis MSpike Pending 06/03/25 04:35 WBC RBC Hgb Hct MCV MCH MCHC RDW Plt Count MPV Immature Gran % (Auto) Neut % (Auto) Lymph % (Auto) Alpine % (Auto) Eos % (Auto) Baso % (Auto) Lymph # (Auto) Alpine # (Auto) Eos # (Auto) Baso # (Auto) Abs Immat Gran (auto) Absolute Neuts (auto) Absolute Nucleated RBC Nucleated RBC % Sodium Potassium Chloride Carbon Dioxide Anion Gap BUN Creatinine Estim Creat Clear Calc Estimated GFR Glucose Serum Osmolality Cancelled Calcium Total Bilirubin AST ALT Alkaline Phosphatase Total Protein Total Protein (PEP) Albumin Albumin (PEP) Globulin (PEP) Albumin/Globulin Ratio Gkoxj-3-Tdoqxaluf Cbwoz-4-Ualmrrjix Beta Globulins Gamma Globulins TSH (Reflex) Urine Osmolality Ur Random Sodium Pr Electrophoresis MSpike Preliminary micro results at discharge 05/29/25 03:41 Fungal Culture - Preliminary Sputum Discharge Plan Discharge Attending physician on discharge: Whit Childress Consulting providers: Honey Gallagher; Campbell Zaldivar; Andrzej Vigil; Denisa Juarez; Jack Barragan; Kenan Miller Discharging Clinician: Andrzej Vigil Anticipated Discharge Date/Time: 06/04/25 10:00 Patient Disposition: Home Activity: as tolerated Diet: heart healthy Discharge Instructions: Discharge disposition: Home Take medications as prescribed. You will be prescribed levofloxacin 750 mg to be taken once daily for an additional 2 days. You will also be prescribed 2 double-strength tablets Bactrim to be taken once every 8 hours (for a total of 6 tablets daily), take this as directed until 06/20/2025. Take these medications as guided by Pulmonology: Prednisone 7.5 mg once daily through 06/07/2025 then 5 mg daily. I will be prescribing you two scripts for prednisone, one at 7.5mg and one at 5.0 mg. Take the 7.5mg until 06/07 then start taking 5mg once daily. Symbicort 80-4.5 at 2 puffs twice daily Spiriva Respimat 1.25 mcg at 2 puffs once daily Rescue albuterol inhaler 2 puffs q.4 hours as needed for shortness of breath or wheezing Rescue albuterol nebulizer 2.5 mg Q 4 hours as needed for shortness of breath or wheezing Monitor blood pressures Take caution while standing, rising, or moving Change positions slowly taking a break between each position change If you standing feel dizzy sit back down and take a break Encouraged to continue with yearly vaccinations Return to the emergency department if he developed sudden shortness of breath, chest pain, nausea, vomiting, upset stomach or intractable diarrhea Return to the emergency department if you develop fever greater than 101.5 Follow-up with the primary care physician and Violent Crimes Detective within 1-2 weeks Follow up with Dr. Owen from [facility] to set up an outpatient bronchoscopy Follow up with Dr. Madison of Hematology/Oncology for an MRA of the Brain Thank you for choosing [facility] for your healthcare needs Patient Instructions: Antibiotic Form, Heart Failure (ED), Pain Management in Older Adults (DC) Patient Language: Peruvian Stand Alone Forms: General Discharge Information Follow-up/Referrals: Spike Madison MD [Physician, Hematology] Jack Barragan MD [Physician, Interventional Cardiology] - 4 Weeks Discharge Medications: New levofloxacin 750 mg tablet 750 mg PO DAILY 2 Days Qty: 2 0RF sulfamethoxazole-trimethoprim [Bactrim DS] 800-160 mg tablet 2 tablet PO Q8H Qty: 96 0RF prednisone 2.5 mg Tablet 7.5 mg PO DAILY@0800 Qty: 3 0RF prednisone 5 mg tablet 5 mg PO DAILY Qty: 20 0RF Rx Instructions: Start taking AFTER 06/07, once the 7.5mg is completed. ondansetron 4 mg tablet,disintegrating 4 mg PO Q8H PRN (Reason: nausea and vomiting) 5 Days Qty: 15 0RF Continued Spiriva Respimat 1.25 mcg/actuation mist 2 puff inhalation DAILY budesonide-formoterol [Symbicort] 80-4.5 mcg/actuation Hfa Aerosol Inhaler 2 puff INHALATION BID ipratropium-albuterol 0.5 mg-3 mg(2.5 mg base)/3 mL solution for nebulization 3 ml inhalation Q6H PRN (Reason: shortness of breath or wheezing) Qty: 90 0RF losartan 25 mg tablet 25 mg PO DAILY Qty: 30 0RF albuterol sulfate 90 mcg/actuation HFA aerosol inhaler 1 inh inhalation QID PRN (Reason: shortness of breath or wheezing) Qty: 6.7 0RF darunavir 800 mg tablet 800 mg PO DAILY emtricitabine-tenofovir (TDF) [Truvada] 200-300 mg tablet 1 tablet PO DAILY [place] Saline 0.65 % aerosol,spray 2 spray intranasal QID PRN (Reason: nasal congestion) ritonavir 100 mg tablet 100 mg PO DAILY guaifenesin [Mucus Relief ER] 600 mg Tablet Extended Release 12hr 1,200 mg PO Q12HR Qty: 30 0RF Discontinued prednisone 10 mg tablet 10 mg PO DIRECTED Qty: 62 0RF Rx Instructions: 6Tx3d, 5Tx3d, 4Tx3d, 3Tx3d, 2Tx3d, 1Tx3d prednisone 10 mg tablet 10 mg PO DIRECTED Qty: 18 0RF Rx Instructions: take 3 tabs daily x 3 days then 2 tabs daily x 3 days then 1 tab daily x 3 days Date of admission: 05/27/25 20:47 Primary Care Provider: AliyahDonya Admitting Provider: Char Sierra Attending physician on admission: Char Sierra Condition: Stable Quality VTE Prophylaxis VTE prophylaxis: pharmacologic ordered
--- NOTE | 2025-06-04 11:34 | PCRCNOTE ---
home 02 evaluation done. Resting spo2 94 pt spo2 with activity 91. No changes to pts home o2 settings.
[2025-06-05 08:14] LABS: Labcorp Miscellaneous Test Negative
[2025-06-05 20:07] LABS: Histoplasma Gal'mannan Ag, Ur Negative (<0.2 ng/mL)
[2025-06-06 15:09] LABS: Albumin 2.9 g/dL (2.9-4.4); Alpha-1-Globulin 0.2 g/dL (0.0-0.4); Alpha-2-Globulin 0.7 g/dL (0.4-1.0); Gamma Globulin 0.7 g/dL (0.4-1.8)
[2025-06-06 23:07] LABS: Osmolality, Urine 500 mOsmol/kg (.)
== END 2025-06-04 13:03 | disposition home or self-care (01) | DRG 890 ==
LOC: ANHED 20:08 → ANH2MED 23:10 → ANH3MEDSUR 06-06 09:09
PROVIDERS: Emergency Medicine; Internal Medicine Infectious Disease; Internal Medicine Nephrology; Internal Medicine Pulmonary Disease; Physician Assistant; Admitting Provider Internal Medicine; Emergency Provider Emergency Medicine; PCP Physician Assistant; Visit Provider Student in an Organized Health Care Education/Training Program
DX: A41.9 Sepsis, unspecified organism (principal); J96.01 Acute respiratory failure with hypoxia; B20 Human immunodeficiency virus [HIV] disease; J18.9 Pneumonia, unspecified organism; R65.20 Severe sepsis without septic shock; J96.02 Acute respiratory failure with hypercapnia; E83.00 Disorder of copper metabolism, unspecified; D18.00 Hemangioma unspecified site; J44.0 Chronic obstructive pulmonary disease with (acute) lower respiratory infection; R91.8 Other nonspecific abnormal finding of lung field; E43 Unspecified severe protein-calorie malnutrition; J43.1 Panlobular emphysema; I42.9 Cardiomyopathy, unspecified; E87.1 Hypo-osmolality and hyponatremia; I51.89 Other ill-defined heart diseases; F10.91 Alcohol use, unspecified, in remission; Z79.899 Other long term (current) drug therapy; Z87.891 Personal history of nicotine dependence; Z79.52 Long term (current) use of systemic steroids; Z68.1 Body mass index [BMI] 19.9 or less, adult; Z99.81 Dependence on supplemental oxygen; Z22.322 Carrier or suspected carrier of Methicillin resistant Staphylococcus aureus
CPT/HCPCS: 36415; 36600; 71045; 71046; 71275; 80048; 80053; 80202; 81001; 82103; 82104; 82805; 82948; 83605; 83690; 83735; 83880; 83935; 84145; 84155; 84165; 84300; 84443; 84484; 85018; 85025; 85610; 85730; 86140; 86361; 86612; 86738; 87015; 87040; 87070; 87101; 87205; 87281; 87385; 87449; 87536; 87637; 87641; 87899; 87901; 93005; 93306; 94618; 94640; 94762; 96365; 96367; 96375; 99285; A9270; J0456; J0692; J0696; J1650; J1885; J2270; J2919; J3373; J7030; J7050; J7512; Q9967

== ENCOUNTER 2025-08-05 21:33 | Emergency (ER) | payer OTHER, SELFPAY ==
[2025-08-05] VITALS (11 sets, daily range): BP systolic 117–185; BP diastolic 66–109; PULSE 109–133; RESP 20–45; TEMP 37.1–38.1; O2SAT 70–100
--- NOTE | ~2025-08-05 | CT_ITS ---
EXAMINATION:CT diagnostic chest w con DATE: 08/05/2025 23:17 INDICATION: Dyspnea. Lung mass. TECHNIQUE: Computed tomography (CT) of the chest was performed with 75 mL Omnipaque 350 intravenous contrast. Automated exposure control and iterative reconstruction technique were employed. The dose-length product (DLP) was 124.21 mGy-cm. COMPARISON: Chest CT 05/27/2025 FINDINGS: There is severe emphysema. Calcified pulmonary nodules are consistent with old granulomatous disease. There is a 3.2 x 2.9 cm mass in right lung middle lobe and upper lobe, worsened from 1.8 x 2.3 cm on 05/27/2025. There are nodules and airspace and groundglass opacities in right middle lobe with volume loss. There are airspace and groundglass opacities in left upper lobe and superior segment left lower lobe. These findings are consistent with pneumonia. No pleural effusion. The heart size is normal. There are coronary artery calcifications. No pericardial effusion. There is right hilar and mediastinal lymphadenopathy. For example, a right hilar freddie mass measures 4.5 x 2.2 cm. There are 2 masses in the liver with interrupted peripheral puddling of contrast measuring up to 3.1 cm, consistent with hemangiomas. There are 2.3 cm and 1.2 cm masses in left hepatic lobe that are new from 05/27/2025. There is severe cervical and thoracic spondylosis. There is a burst fracture of T9 with 1/5 loss of height. There is a compression fracture of T10 with 1/5 loss of height. There is a lytic lesion in T12 with pathologic compression fracture. IMPRESSION: 1. Mass in right lung middle and upper lobes with interval worsening, consistent with primary bronchogenic carcinoma. 2. Right hilar and mediastinal lymphadenopathy and new liver masses, consistent metastatic disease. 3. Lytic lesion of T12 suspicious for metastatic disease. T12 acute versus subacute compression fracture. 4. Acute versus subacute T9 burst fracture and T10 compression fracture. 5. Bilateral pneumonia. 6. Severe emphysema. Reviewed, dictated and finalized at location E. PATIONAL HYGIENIST IMPRESSION: 1. Mass in right lung middle and upper lobes with interval worsening, consisten t with primary bronchogenic carcinoma. 2. Right hilar and mediastinal lymphadenopathy and new liver masses, consistent metastatic disease. 3. Lytic lesion of T12 suspicious for metastatic disease. T12 acute versus suba cute compression fracture. 4. Acute versus subacute T9 burst fracture and T10 compression fracture. 5. Bilateral pneumonia. 6. Severe emphysema.
--- NOTE | ~2025-08-05 | XR_ITS ---
Examination: XR chest 1V portable Clinical History: dyspnea Comparison: X-ray 05/30/2025 CTA chest 05/27/2025 Technique: Portable AP Findings: Heart size normal. Emphysema and hyperinflation. Right hilar and lung masses as before. Left lower lobe airspace disease. No acute bony abnormality. IMPRESSION: 1. Left basilar pneumonia. 2. Right hilar and lung masses as before. Reviewed, dictated and finalized at location R. NG ASSOCIATE
[2025-08-05] MEDS: EPINEPHrine HCL INJ 1 MG/ML AMPUL (21:42)
[2025-08-05] MEDS: ALBUTEROL SULFATE NEB 2.5 MG/3 ML INH 10 MG INHALATION (21:51)
[2025-08-05] MEDS: IPRATROPIUM BR 0.02% INH SOLN 0.5 MG/2.5 ML VIAL 1 MG INHALATION (21:51)
--- NOTE | 2025-08-05 21:53 | ECG_ITS ---
Test Date: 2025-08-05 21:53:10 Measurements Intervals [place] Rate: 115 P: 74 WY: 169 QRS: 14 QRSD: 98 T: 39 QT: 325 QTc: 450 Interpretive Statements SINUS TACHYCARDIA POSSIBLE LEFT ATRIAL ENLARGEMENT [-0.1mV P WAVE IN V1/V2] POSSIBLE LEFT VENTRICULAR HYPERTROPHY [VOLTAGE CRITERIA PLUS LAE OR QRS WIDENING] AND ST CHANGES Compared to ECG 05/27/2025 18:20:21 ST (T wave) deviation now present Myocardial infarct finding no longer present Electronically Signed On 08-06-2025 09:32:26 [employer] by Jack Barragan M.D.
[2025-08-05 22:01] LABS: Hematocrit 43.7 % (37.0-47.0); Hemoglobin 13.3 g/dL (12.0-15.0); Immature Granulocyte Percent A 0.6 % (0-0.5); Lymphocytes Absolute Auto 1.28 K/mm3 (0.9-3.2); Mean Corpuscular HGB Conc 30.4 g/dl (32-36); Mean Corpuscular Hemoglobin 26.3 pg (26-34); Mean Corpuscular Volume 86.4 fl (80-100); Nucleated Red Blood Cells Absolute Auto 0.000 K/mm3 (0.0-0.012); Nucleated Red Blood Cells Perc 0.0 % (0.0-0.2); Platelet Count Result 466 k/mm3 (150-375); Red Blood Count 5.06 M/mm3 (4.2-5.4); White Blood Count 21.1 K/mm3 (4.5-10.0)
[2025-08-05] MEDS: LACTATED RINGERS 1,000 ML 999 ML IV CONT (22:04)
[2025-08-05] MEDS: MAGNESIUM SULF 2 GM/WATER 50ML 2 GM/50 ML BAG IVPB (22:05)
[2025-08-05] MEDS: cefTRIAXone 1 GM in SODIUM CHLORIDE 0.9% IV 50 ML 100 ML IVPB (22:06)
[2025-08-05 22:09] LABS: Alveolar/Arterial O2 Gradient 423.2 mmHg; Carboxyhemoglobin 0.8 % THb (0-2.0); Fractional Inspired Oxygen 100 %; HCO3 ABG 32.3 mEq/l (22.0-26.0); Methemoglobin ABG 0.2 %THb (0-1.5); Oxygen Content ABG 18.5 %vol (16.0-22.0); Oxygen Saturation ABG 99.4 % (95.0-100.0); PO2 ABG 228.3 mmHg (80.0-100.0); PO2 FiO2 Ratio Arterial Blood 2.28 %; Reduced Hemoglobin 0.6 %THb (0-5.0)
[2025-08-05 22:11] LABS: Alanine Aminotransferase 28 U/L (6-35); Albumin Level 4.4 g/dL (3.5-5.1); Alkaline Phosphatase 156 U/L (38-126); Anion Gap 5 mmol/L (4-12); Aspartate Amino Transferase 38 U/L (14-36); Bilirubin,Total 0.5 mg/dL (0.2-1.3); Blood Urea Nitrogen 7 mg/dL (7-17); Calcium 8.9 mg/dL (8.4-10.2); Carbon Dioxide 36 mmol/L (22-30); Chloride 91 mmol/L (98-107); Estimated Glomerular Filt Rate > 60; Glucose 128 mg/dL (65-110); Potassium 3.5 mmol/L (3.4-5.0); Sodium 132 mmol/L (137-145); Total Protein 8.5 g/dL (6.3-8.2)
--- NOTE | 2025-08-05 22:11 | ED.SOB ---
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 Recently hospitalized for respiratory failure requiring increased oxygenation and was diagnosed with PJP pneumonia and treated with Bactrim. Patient is on multiple specialists during the hospitalization including Nephrology for hyponatremia, infectious Disease for HIV status and PJP, pulmonology for COPD. Patient presents via EMS from home with respiratory distress and extremities. EMS administered DuoNeb in route. IV was established here patient is tripoding very dyspneic and wheezing throughout all lung waddell with coarse asymmetry on the bilateral bases and apices. Retracting and having 1-2 word dyspnea. Placed in the room to for resuscitation further evaluation. Respiratory therapy called to bedside. Historical elements limited secondary to patient distress. On review of the EMR patient was hospitalized and discharged in June for extensive hospital stay with similar presentation today based on review. Related Data Home Medications ?Medication ?Instructions ?Recorded ?Confirmed ?Last Taken ?Type budesonide-formoterol HFA 80 2 puff inhalation BID 03/09/22 05/28/25 04/12/25 History mcg-4.5 mcg/actuation aerosol inhaler (Symbicort) tiotropium bromide 1.25 2 puff inhalation DAILY 07/12/24 05/28/25 04/12/25 History mcg/actuation mist for inhalation (Spiriva Respimat) darunavir 800 mg tablet 800 mg PO DAILY 04/12/25 05/28/25 04/12/25 History emtricitabine 200 mg-tenofovir 1 tablet PO DAILY 04/12/25 05/28/25 04/12/25 History disoproxil fumarate 300 mg tablet (Truvada) ritonavir 100 mg tablet 100 mg PO DAILY 04/12/25 05/28/25 04/12/25 History sodium chloride 0.65 % nasal spray 2 spray intranasal QID PRN nasal 04/12/25 05/28/25 04/12/25 History aerosol (Issue Saline) congestion Allergies Allergy/AdvReac Type Severity Reaction Status Date / Time meperidine Allergy Unknown anaphlaxis Verified 04/12/25 17:57 orange Allergy Unknown Hives Verified 04/12/25 17:57 Review of Systems Review of Systems: As reviewed above in HPI ROS unobtainable: Yes unobtainable due to medical condition PMFSH Past Medical History Medical History Systolic heart failure Diastolic dysfunction Without diagnosis of CHF. Echo 08/2022: EF 50 55%, grade 1 diastolic dysfunction, normal right ventricular systolic function, mild mitral and tricuspid valve regurgitation Rupture long head biceps tendon Chronic steroid use 10 mg prednisone daily Essential hypertension Chronic hypoxic respiratory failure, on home oxygen therapy Cavernous hemangioma HIV (human immunodeficiency virus infection) COPD (chronic obstructive pulmonary disease) Surgical History Surgical History History of tonsillectomy History of hysterectomy Family History Family History Grandparent Diabetes mellitus Mother Diabetes mellitus Social History Social History Social History: She lives at home with her . She states that they been for few years. Her daughter recently moved in with the patient's 2 grand children and the daughters 2 dogs and 1 cat. She reports she used to smoke 1 pack of cigarettes per day from the time she was 7 years old in till 2020. She denies any illicit substance use. It sounds as if the patient likely drink at least a moderate amount of alcohol if not drinking on a daily basis for many years but quit drinking in 1994. 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 Code status: Full code Surrogate decision maker: Tha () Smoking packs per day: 1 Smoking cigarettes per day: 20.0 Years smoked: 55 Smoking pack-years: 55.00 Smoking status: Former smoker Second hand tobacco smoke exposure: Yes Alcohol intake: former Alcohol use details: She used to drink somewhat frequently when she was a landscaper helper but quit in 1994. Substance use: never Substance use type: does not use Do You Feel Safe in your Home?: Yes Lack of Transportation: No Lack of Food: Never True Current Housing: I Have Housing Concerned About Future Housing: No Difficulty Paying Gas/Electric Bills: No Difficulty Paying for Meds: No Currently Unemployed: No Education: Bachelor's Degree Difficulty w/ Childcare or Family Care: No Spiritual care concerns: No Exam Narrative: GENERAL: Respiratory failure with dyspnea, tripoding, retracting. 1-2 word dyspnea. Awake and able to nod and answer questions briefly. HEAD: Normocephalic and atraumatic EYES: PERRLA ENT: Nares clear, no rhinorrhea or epistaxis. Mucous membranes moist. NECK: Supple. CHEST: Coarse wheezing with retractions and tachypnea in the 40s. Bilateral bases with asymmetry right worse than left and apices with scattered coarse breath sounds. HEART: Tachycardic but regular rhythm. Warm extremities. ABDOMEN: Soft and nontender nondistended. EXTREMITIES: Normal range of motion. [No edema.] SKIN: Warm, dry, no rash. NEURO: [No focal deficits]. Alert and oriented [x3.] PSYCH: [Normal mood and affect.] Course Vital Signs Vital signs: Vital Signs Pulse Rate 133 H 08/05/25 21:43 Respiratory Rate 45 H 08/05/25 21:43 Blood Pressure 185/108 H 08/05/25 21:43 Pulse Oximetry 70 L 08/05/25 21:43 Oxygen Delivery Nasal Cannula 08/05/25 21:43 Oxygen Flow Rate 3 08/05/25 21:43 Temperature 37.1 C 08/05/25 22:53 Pulse Rate 84 08/06/25 06:17 Respiratory Rate 22 H 08/06/25 06:17 Blood Pressure 101/70 08/06/25 00:45 Pulse Oximetry 96 08/06/25 06:24 Oxygen Delivery Nasal Cannula 08/06/25 06:24 Oxygen Flow Rate 4 08/06/25 06:24 Fraction of Inspired Oxygen 50 08/05/25 22:15 MDM - SOB/Dyspnea MDM Narrative Medical decision making narrative: 65-year-old female with history of severe emphysematous COPD on home oxygen 3 L, history of HIV with low CD4 count in the 50s, hyponatremia, hypertension. Recently hospitalized for respiratory failure requiring increased oxygenation and was diagnosed with PJP pneumonia and treated with Bactrim. Patient is on multiple specialists during the hospitalization including Nephrology for hyponatremia, infectious Disease for HIV status and PJP, pulmonology for COPD. Patient presents via EMS from home with respiratory distress and extremities. EMS administered DuoNeb in route. IV was established here patient is tripoding very dyspneic and wheezing throughout all lung waddell with coarse asymmetry on the bilateral bases and apices. Retracting and having 1-2 word dyspnea. Placed in the room to for resuscitation further evaluation. Respiratory therapy called to bedside. Historical elements limited secondary to patient distress. On review of the EMR patient was hospitalized and discharged in June for extensive hospital stay with similar presentation today based on review. Respiratory failure with dyspnea, tripoding, retracting. 1-2 word dyspnea. Awake and able to nod and answer questions briefly. Coarse wheezing with retractions and tachypnea in the 40s. Bilateral bases with asymmetry right worse than left and apices with scattered coarse breath sounds. Patient is hypertensive tachycardic in the 130s, tachypneic in the 40s febrile at 38.1 and hypoxic despite 6 L supplemental oxygen. Currently 70% 3 L, not much improvement with 6 L. Placed on BiPAP when respiratory therapy arrived. Immediately given subcutaneous epinephrine for profound COPD exacerbation and respiratory compromise. Patient had improvement with epinephrine and BiPAP therapy. Albuterol and Atrovent continuously infused as well as magnesium and steroids. Respiratory status improved tachypnea still present in the 30s, tachycardia improved and blood pressure remains elevated. 100% on BiPAP therapy. Patient is able to converse now through the BiPAP mask and much more comfortable, no longer tripoding and now resting in her stretcher. X-ray called to bedside which shows asymmetric findings consistent with pneumonia versus PJP verses worsening of her known lung mass. She has not had this biopsied yet after talking with her. Broad workup obtained including blood cultures, ABG, empirically treated for PJP pneumonia and healthcare associated pneumonia recurrence with vancomycin cefepime as well as oral Bactrim after reading infectious disease note from prior encounter. Patient given Tylenol for fever an additional fluids. Patient significantly improved upon frequent re-evaluations. Still dependent on BiPAP with significant improvement respiratory efforts. Tachycardia and tachypnea have slowly resolved throughout the hours. Remains 96% saturation on BiPAP therapy. CT scan shows left-sided pneumonia in the lingula as well as new interstitial pulmonary mass on the right side measuring 3.3 cm concerning for neoplasm as well as interval increase in the right middle lobe pulmonary mass suspicious for endobronchial carcinoma to now 3.1 cm. Laboratory studies show leukocytosis of 21,000 consistent with active infection. She is currently on vancomycin cefepime and Bactrim for PJP treatment if this is the culprit as well as community/healthcare associated pneumonia treatment. Initial blood gas shows pH 7.3 with a pCO2 of 61 with repeat gas next 2 hours showing improvement to 7.36 and pCO2 of 53. Electrolytes show normal kidney function and glucose. Lactic acid of 2.2 down trending to 1.0. LFTs mildly elevated but not significantly. Viral panel negative. Given patient's metastatic suspected lung cancer a new metastasis with worsening burden I discussed options with the patient and she would like to pursue the original plan last month for biopsy and treatment with Oncology. Previously attempted to be transferred to [facility] for pulmonary and oncology evaluation. We do not have Oncology open today or this week. Discussed with her about transfer options and she was amenable to go to other facilities. Reached out to the [facility] where she was attempted to be established previously and she was accepted as a direct transfer to their facility [facility] in [place] under Dr. Valerio. Awaiting bed assignment. Patient remains hemodynamically stable and improved on repeat assessments. Schedule nebulization treatments and morning labs ordered. Additional fluids provided and she is able to tolerate oral intake with breaks off the BiPAP. Awaiting bed assignment and patient care signed over to morning physician pending transfer. Medical Records Attestation: I reviewed the patient's medical records. Lab Data Attestation: I reviewed the patient's lab results. 08/05/25 21:56 08/06/25 05:52 Labs: Lab Results 08/05/25 08/05/25 08/05/25 Range/Units 21:55 21:56 21:59 WBC 21.1 H (4.5-10.0) K/mm3 RBC 5.06 (4.2-5.4) M/mm3 Hgb 13.3 (12.0-15.0) g/dL Hct 43.7 (37.0-47.0) % MCV 86.4 (80-100) fl MCH 26.3 (26-34) pg MCHC 30.4 L (32-36) g/dl RDW 14.2 (11.5-14.5) % Plt Count 466 H (150-375) k/mm3 MPV 9.2 (7.4-10.4) fl Immature Gran % (Auto) 0.6 H (0-0.5) % Neut % (Auto) 89.5 H (45.5-73.1) % Lymph % (Auto) 6.1 L (18.3-44.2) % [place] % (Auto) 3.4 (2.6-8.5) % Eos % (Auto) 0.0 (0-4.4) % Baso % (Auto) 0.4 (0.2-1.2) % Lymph # (Auto) 1.28 (0.9-3.2) K/mm3 [place] # (Auto) 0.7 H (0.1-0.6) K/mm3 Eos # (Auto) 0.0 (0-0.3) K/mm3 Baso # (Auto) 0.1 (0.0-0.1) K/mm3 Abs Immat Gran (auto) 0.13 H (0.00-0.031) K/mm3 Absolute Neuts (auto) 18.9 H (1.3-6.7) K/mm3 Absolute Nucleated RBC 0.000 (0.0-0.012) K/mm3 Nucleated RBC % 0.0 (0.0-0.2) % Lymphocytes # Methemoglobin 0.2 (0-1.5) %THb Expiratory Pressure 6 cmH2O Inspiratory Pressure 12 cmH2O Sodium 132 L (137-145) mmol/L Potassium 3.5 (3.4-5.0) mmol/L Chloride 91 L (98-107) mmol/L Carbon Dioxide 36 H (22-30) mmol/L Anion Gap 5 (4-12) mmol/L BUN 7 D (7-17) mg/dL Creatinine 0.38 L (0.7-1.0) mg/dL Estim Creat Clear Calc Not Reportable Estimated GFR > 60 (59 - ) Glucose 128 H (65-110) mg/dL Lactic Acid (0.7-2.0) mmol/L Calcium 8.9 (8.4-10.2) mg/dL Total Bilirubin 0.5 (0.2-1.3) mg/dL AST 38 H (14-36) U/L ALT 28 (6-35) U/L Alkaline Phosphatase 156 H (38-126) U/L Total Protein 8.5 H (6.3-8.2) g/dL Albumin 4.4 (3.5-5.1) g/dL Nasal MRSA (PCR) (NOT DETECTE) Absolute CD4 [place] % CD4+ Lymphocyte Influenza A (RT-PCR) (Negative) Influenza B (RT-PCR) (Negative) RSV (RT-PCR) (Negative) SARS-CoV-2 RNA (RT-PCR) (Negative) 08/05/25 08/05/25 08/06/25 Range/Units 22:01 22:32 00:19 WBC (4.5-10.0) K/mm3 RBC (4.2-5.4) M/mm3 Hgb (12.0-15.0) g/dL Hct (37.0-47.0) % MCV (80-100) fl MCH (26-34) pg MCHC (32-36) g/dl RDW (11.5-14.5) % Plt Count (150-375) k/mm3 MPV (7.4-10.4) fl Immature Gran % (Auto) (0-0.5) % Neut % (Auto) (45.5-73.1) % Lymph % (Auto) (18.3-44.2) % [place] % (Auto) (2.6-8.5) % Eos % (Auto) (0-4.4) % Baso % (Auto) (0.2-1.2) % Lymph # (Auto) (0.9-3.2) K/mm3 [place] # (Auto) (0.1-0.6) K/mm3 Eos # (Auto) (0-0.3) K/mm3 Baso # (Auto) (0.0-0.1) K/mm3 Abs Immat Gran (auto) (0.00-0.031) K/mm3 Absolute Neuts (auto) (1.3-6.7) K/mm3 Absolute Nucleated RBC (0.0-0.012) K/mm3 Nucleated RBC % (0.0-0.2) % Lymphocytes # Methemoglobin 0.4 (0-1.5) %THb Expiratory Pressure 6 cmH2O Inspiratory Pressure 12 cmH2O Sodium (137-145) mmol/L Potassium (3.4-5.0) mmol/L Chloride (98-107) mmol/L Carbon Dioxide (22-30) mmol/L Anion Gap (4-12) mmol/L BUN (7-17) mg/dL Creatinine (0.7-1.0) mg/dL Estim Creat Clear Calc Estimated GFR (59 - ) Glucose (65-110) mg/dL Lactic Acid 2.2 H (0.7-2.0) mmol/L Calcium (8.4-10.2) mg/dL Total Bilirubin (0.2-1.3) mg/dL AST (14-36) U/L ALT (6-35) U/L Alkaline Phosphatase (38-126) U/L Total Protein (6.3-8.2) g/dL Albumin (3.5-5.1) g/dL Nasal MRSA (PCR) (NOT DETECTE) Absolute CD4 [place] % CD4+ Lymphocyte Influenza A (RT-PCR) Negative (Negative) Influenza B (RT-PCR) Negative (Negative) RSV (RT-PCR) Negative (Negative) SARS-CoV-2 RNA (RT-PCR) Negative (Negative) 08/06/25 08/06/25 08/06/25 Range/Units 01:09 05:52 05:52 WBC Pending (4.5-10.0) K/mm3 RBC Pending (4.2-5.4) M/mm3 Hgb Pending (12.0-15.0) g/dL Hct Pending (37.0-47.0) % MCV Pending (80-100) fl MCH Pending (26-34) pg MCHC Pending (32-36) g/dl RDW Pending (11.5-14.5) % Plt Count Pending (150-375) k/mm3 MPV Pending (7.4-10.4) fl Immature Gran % (Auto) Pending (0-0.5) % Neut % (Auto) Pending (45.5-73.1) % Lymph % (Auto) Pending (18.3-44.2) % [place] % (Auto) Pending (2.6-8.5) % Eos % (Auto) Pending (0-4.4) % Baso % (Auto) Pending (0.2-1.2) % Lymph # (Auto) Pending (0.9-3.2) K/mm3 [place] # (Auto) Pending (0.1-0.6) K/mm3 Eos # (Auto) Pending (0-0.3) K/mm3 Baso # (Auto) Pending (0.0-0.1) K/mm3 Abs Immat Gran (auto) Pending (0.00-0.031) K/mm3 Absolute Neuts (auto) Pending (1.3-6.7) K/mm3 Absolute Nucleated RBC Pending (0.0-0.012) K/mm3 Nucleated RBC % Pending (0.0-0.2) % Lymphocytes # Pending Methemoglobin (0-1.5) %THb Expiratory Pressure cmH2O Inspiratory Pressure cmH2O Sodium 132 L (137-145) mmol/L Potassium 3.8 (3.4-5.0) mmol/L Chloride 97 L (98-107) mmol/L Carbon Dioxide 32 H (22-30) mmol/L Anion Gap 3 L (4-12) mmol/L BUN 7 (7-17) mg/dL Creatinine Cancelled 0.32 L (0.7-1.0) mg/dL Estim Creat Clear Calc Cancelled Estimated GFR (59 - ) Glucose (65-110) mg/dL Lactic Acid 1.0 (0.7-2.0) mmol/L Calcium (8.4-10.2) mg/dL Total Bilirubin (0.2-1.3) mg/dL AST (14-36) U/L ALT (6-35) U/L Alkaline Phosphatase (38-126) U/L Total Protein (6.3-8.2) g/dL Albumin (3.5-5.1) g/dL Nasal MRSA (PCR) Not detected (NOT DETECTE) Absolute CD4 [place] Pending % CD4+ Lymphocyte Pending Influenza A (RT-PCR) (Negative) Influenza B (RT-PCR) (Negative) RSV (RT-PCR) (Negative) SARS-CoV-2 RNA (RT-PCR) (Negative) 08/06/25 08/06/25 Range/Units 05:52 05:52 WBC (4.5-10.0) K/mm3 RBC (4.2-5.4) M/mm3 Hgb (12.0-15.0) g/dL Hct (37.0-47.0) % MCV (80-100) fl MCH (26-34) pg MCHC (32-36) g/dl RDW (11.5-14.5) % Plt Count (150-375) k/mm3 MPV (7.4-10.4) fl Immature Gran % (Auto) (0-0.5) % Neut % (Auto) (45.5-73.1) % Lymph % (Auto) (18.3-44.2) % [place] % (Auto) (2.6-8.5) % Eos % (Auto) (0-4.4) % Baso % (Auto) (0.2-1.2) % Lymph # (Auto) (0.9-3.2) K/mm3 [place] # (Auto) (0.1-0.6) K/mm3 Eos # (Auto) (0-0.3) K/mm3 Baso # (Auto) (0.0-0.1) K/mm3 Abs Immat Gran (auto) (0.00-0.031) K/mm3 Absolute Neuts (auto) (1.3-6.7) K/mm3 Absolute Nucleated RBC (0.0-0.012) K/mm3 Nucleated RBC % (0.0-0.2) % Lymphocytes # Methemoglobin (0-1.5) %THb Expiratory Pressure cmH2O Inspiratory Pressure cmH2O Sodium (137-145) mmol/L Potassium (3.4-5.0) mmol/L Chloride (98-107) mmol/L Carbon Dioxide (22-30) mmol/L Anion Gap (4-12) mmol/L BUN (7-17) mg/dL Creatinine (0.7-1.0) mg/dL Estim Creat Clear Calc 91 Estimated GFR Cancelled > 60 (59 - ) Glucose 181 H (65-110) mg/dL Lactic Acid (0.7-2.0) mmol/L Calcium 7.7 L (8.4-10.2) mg/dL Total Bilirubin 0.4 (0.2-1.3) mg/dL AST 30 (14-36) U/L ALT 20 (6-35) U/L Alkaline Phosphatase 98 (38-126) U/L Total Protein 6.2 L (6.3-8.2) g/dL Albumin 3.3 L (3.5-5.1) g/dL Nasal MRSA (PCR) (NOT DETECTE) Absolute CD4 [place] % CD4+ Lymphocyte Influenza A (RT-PCR) (Negative) Influenza B (RT-PCR) (Negative) RSV (RT-PCR) (Negative) SARS-CoV-2 RNA (RT-PCR) (Negative) ABG Data ABG results: 08/05/25 08/06/25 21:59 00:19 Puncture Site Left radial Right radial ABG pH 7.338 L 7.360 ABG pCO2 61.5 H* 53.0 H ABG pO2 228.3 H 59.0 L ABG PO2/FiO2 Ratio 2.28 1.48 ABG HCO3 32.3 H 29.3 H ABG O2 Saturation 99.4 89.2 L ABG O2 Content 18.5 14.1 L ABG Base Excess 4.8 2.9 A-a Gradient 423.2 165.3 Oxyhemoglobin 98.4 88.0 L Carboxyhemoglobin 0.8 0.7 Reduced Hemoglobin 0.6 10.9 H Total Hemoglobin 13.0 11.4 L O2 Delivery Device Bipap Bipap O2 Liters/Min Not Reportable Not Reportable FiO2 100 40 Attestation: I personally reviewed and interpreted this ABG as follows: Interpretation: Respiratory acidosis with improvement on repeat Critical Care Time Critical Care Time Critical Care Time: Yes Total Critical Care Time: 75 Discharge Plan Discharge Clinical Impression: Respiratory failure with hypercapnia, Acute exacerbation of chronic obstructive pulmonary disease, Lung mass, Acute on chronic respiratory failure with hypoxia and hypercapnia, HCAP (healthcare-associated pneumonia) HIV (human immunodeficiency virus infection) Qualifiers: HIV symptom status: unspecified Qualified Code(s): Z21 - Asymptomatic human immunodeficiency virus [HIV] infection status Sepsis Qualifiers: Sepsis type: sepsis due to unspecified organism Sepsis acute organ dysfunction status: with acute organ dysfunction Severe sepsis acute organ dysfunction type: acute respiratory failure Acute respiratory failure type: unspecified Severe sepsis shock status: without septic shock Qualified Code(s): A41.9 - Sepsis, unspecified organism Patient Disposition: Acute Care Hospital Condition: Guarded Prognosis Patient Language: Lithuanian Prescriptions: No Action Spiriva Respimat 1.25 mcg/actuation mist 2 puff inhalation DAILY budesonide-formoterol [Symbicort] 80-4.5 mcg/actuation Hfa Aerosol Inhaler 2 puff INHALATION BID ipratropium-albuterol 0.5 mg-3 mg(2.5 mg base)/3 mL solution for nebulization 3 ml inhalation Q6H PRN (Reason: shortness of breath or wheezing) Qty: 90 0RF losartan 25 mg tablet 25 mg PO DAILY Qty: 30 0RF albuterol sulfate 90 mcg/actuation HFA aerosol inhaler 1 inh inhalation QID PRN (Reason: shortness of breath or wheezing) Qty: 6.7 0RF darunavir 800 mg tablet 800 mg PO DAILY emtricitabine-tenofovir (TDF) [Truvada] 200-300 mg tablet 1 tablet PO DAILY Issue Saline 0.65 % aerosol,spray 2 spray intranasal QID PRN (Reason: nasal congestion) ritonavir 100 mg tablet 100 mg PO DAILY guaifenesin [Mucus Relief ER] 600 mg Tablet Extended Release 12hr 1,200 mg PO Q12HR Qty: 30 0RF levofloxacin 750 mg tablet 750 mg PO DAILY 2 Days Qty: 2 0RF sulfamethoxazole-trimethoprim [Bactrim DS] 800-160 mg tablet 2 tablet PO Q8H Qty: 96 0RF prednisone 2.5 mg Tablet 7.5 mg PO DAILY@0800 Qty: 3 0RF prednisone 5 mg tablet 5 mg PO DAILY Qty: 20 0RF Rx Instructions: Start taking AFTER 9/4, once the 7.5mg is completed. ondansetron 4 mg tablet,disintegrating 4 mg PO Q8H PRN (Reason: nausea and vomiting) 5 Days Qty: 15 0RF Follow-up/Referrals: Jackie,KIMBERLI Naqvi [Primary Care Provider, Unknown] Time of Disposition: 06:36
[2025-08-05 22:12] LABS: Modified Allen's Test Pass; PCO2 ABG 61.5 mmHg (35.0-45.0); Site Drawn LEFT RADIAL
[2025-08-05] MEDS: ACETAMINOPHEN 500 MG TABLET 1000 MG PO (22:23)
[2025-08-05] MEDS: SULFAMETHOXAZOLE/TRIMETHOPRIM 800/160 MG DS TABLET 1 TAB PO (22:24)
[2025-08-05] MEDS: CEFEPIME 2 GM in SODIUM CHLORIDE 0.9% IV 50 ML 100 ML IVPB (22:24)
[2025-08-05 23:13] LABS: Influenza A QL RT-PCR Negative (Negative); Influenza B QL RT-PCR Negative (Negative); RSV RNA, RT-PCR Negative (Negative); SARS-CoV-2 RNA PCR Negative (Negative)
[2025-08-05] MEDS: VANCOMYCIN HCL 1,000 MG in SODIUM CHLORIDE 0.9% IV 250 ML 250 MG IVPB (23:15)
[2025-08-06] VITALS (24 sets, daily range): BP systolic 97–141; BP diastolic 65–86; PULSE 81–112; RESP 18–28; O2SAT 92–98
[2025-08-06 00:31] LABS: Alveolar/Arterial O2 Gradient 165.3 mmHg; Carboxyhemoglobin 0.7 % THb (0-2.0); Fractional Inspired Oxygen 40 %; HCO3 ABG 29.3 mEq/l (22.0-26.0); Methemoglobin ABG 0.4 %THb (0-1.5); Oxygen Content ABG 14.1 %vol (16.0-22.0); Oxygen Saturation ABG 89.2 % (95.0-100.0); PCO2 ABG 53.0 mmHg (35.0-45.0); PO2 ABG 59.0 mmHg (80.0-100.0); PO2 FiO2 Ratio Arterial Blood 1.48 %; Reduced Hemoglobin 10.9 %THb (0-5.0)
[2025-08-06 00:33] LABS: Modified Allen's Test Pass; Site Drawn RIGHT RADIAL
[2025-08-06 02:32] LABS: MRSA (PCR) NOT DETECTED (NOT DETECTE)
[2025-08-06] MEDS: LACTATED RINGERS 1,000 ML 500 ML IV CONT (02:45)
[2025-08-06 05:59] LABS: Hematocrit 33.8 % (37.0-47.0); Hemoglobin 10.3 g/dL (12.0-15.0); Immature Granulocyte Percent A 1.1 % (0-0.5); Lymphocytes Absolute Auto 0.22 K/mm3 (0.9-3.2); Mean Corpuscular HGB Conc 30.5 g/dl (32-36); Mean Corpuscular Hemoglobin 27.0 pg (26-34); Mean Corpuscular Volume 88.5 fl (80-100); Nucleated Red Blood Cells Absolute Auto 0.000 K/mm3 (0.0-0.012); Nucleated Red Blood Cells Perc 0.0 % (0.0-0.2); Platelet Count Result 369 k/mm3 (150-375); Red Blood Count 3.82 M/mm3 (4.2-5.4); White Blood Count 21.7 K/mm3 (4.5-10.0)
[2025-08-06] MEDS: IPRATROPIUM 0.5 MG/ALBUTEROL SULFATE 2.5 MG (BASE) AMPUL.NEB 3 ML INHALATION (06:10)
[2025-08-06 06:16] LABS: Alanine Aminotransferase 20 U/L (6-35); Albumin Level 3.3 g/dL (3.5-5.1); Alkaline Phosphatase 98 U/L (38-126); Anion Gap 3 mmol/L (4-12); Aspartate Amino Transferase 30 U/L (14-36); Bilirubin,Total 0.4 mg/dL (0.2-1.3); Blood Urea Nitrogen 7 mg/dL (7-17); Calcium 7.7 mg/dL (8.4-10.2); Carbon Dioxide 32 mmol/L (22-30); Chloride 97 mmol/L (98-107); Estimated CRCL calculation 91 ml/min; Estimated Glomerular Filt Rate > 60; Glucose 181 mg/dL (65-110); Potassium 3.8 mmol/L (3.4-5.0); Sodium 132 mmol/L (137-145); Total Protein 6.2 g/dL (6.3-8.2)
--- NOTE | 2025-08-06 08:20 | PC.NURSE ---
Breakfast tray ordered for the patient.
--- NOTE | 2025-08-06 09:04 | PC.NURSE ---
Update given to [facility], pt is still wait for bed.
[2025-08-06] MEDS: SULFAMETHOXAZOLE/TRIMETHOPRIM 800/160 MG DS TABLET 2 TAB PO (10:31)
[2025-08-06] MEDS: CEFEPIME 2 GM in SODIUM CHLORIDE 0.9% IV 50 ML 100 ML IVPB (11:30)
== END 2025-08-06 13:43 | disposition short-term general hospital (02) ==
PROVIDERS: Emergency Provider Student in an Organized Health Care Education/Training Program; PCP Physician Assistant
DX: A41.9 Sepsis, unspecified organism (principal); R65.20 Severe sepsis without septic shock; J96.22 Acute and chronic respiratory failure with hypercapnia; J96.21 Acute and chronic respiratory failure with hypoxia; J18.9 Pneumonia, unspecified organism; R91.8 Other nonspecific abnormal finding of lung field; J44.1 Chronic obstructive pulmonary disease with (acute) exacerbation; Z21 Asymptomatic human immunodeficiency virus [HIV] infection status; Z20.822 Contact with and (suspected) exposure to COVID-19; I50.20 Unspecified systolic (congestive) heart failure; I11.0 Hypertensive heart disease with heart failure; Z99.81 Dependence on supplemental oxygen; Z87.891 Personal history of nicotine dependence; Z90.710 Acquired absence of both cervix and uterus; Z79.899 Other long term (current) drug therapy
CPT/HCPCS: 36415; 36600; 71045; 71260; 80053; 82375; 82805; 83050; 83605; 85018; 85025; 86361; 87040; 87637; 87641; 93005; 94002; 94640; 96361; 96365; 96367; 96375; 99291; A9270; J0166; J0692; J0696; J2919; J3373; J3475; J7050; J7120; Q9967

== ENCOUNTER 2025-09-19 17:08 | Emergency (ER) | payer OTHER, SELFPAY ==
[2025-09-19] VITALS (13 sets, daily range): BP systolic 125–167; BP diastolic 83–93; PULSE 73–110; RESP 14–26; TEMP 36.9; O2SAT 91–100
--- NOTE | ~2025-09-19 | CT_ITS ---
CTA chest PE protocol HISTORY:sob and hx of metastatic lung cx . COMPARISON: None. TECHNIQUE: Following the noncontrasted extrusion former, axial images of the thorax were obtained following infusion of 100 cc of Isovue 370. Post-processing on an independent workstation was performed to reconstruct MIP images for evaluation of the thoracic vasculature. FINDINGS: There is no pulmonary embolism, aortic dissection, thoracic aneurysm or pericardial fluid. Diffuse centrilobular emphysema is noted. There are calcified granulomas within the upper lobes bilaterally. There are extensive mediastinal and right hilar lymphadenopathy. Largest right hilar lymph node measures 4.4 x 4 cm. Subcarinal lymph node measures 3 cm. AP window lymph node measures 2.6 x 4.7 cm. Precarinal lymph node measures 3.1 x 2.4 cm. No pleural effusion or pneumothorax is noted. Partially included upper abdomen demonstrate multiple hepatic masses suggestive of hepatic metastases. These measure up to 3 cm. Review of bone windows demonstrates no osteoblastic or lytic lesions. IMPRESSION: There is no pulmonary embolism, aortic dissection, pericardial fluid or thoracic aneurysm. There are extensive mediastinal and right hilar lymphadenopathy suggestive of metastases. Multiple hepatic masses suggestive of metastases. All CT scans at this facility are performed using low dose modulation techniques as appropriate to perform exam including the following: automated exposure control; use of iterative reconstruction technique; adjustment of the mA and/or kV according to patient size (this includes techniques or standardized protocols for targeted exams where dose is matched to indication/reason for exam). Reviewed, dictated and finalized at location S. UNHAIRER IMPRESSION: There is no pulmonary embolism, aortic dissection, pericardial fluid or thoraci c aneurysm. There are extensive mediastinal and right hilar lymphadenopathy suggestive of m etastases. Multiple hepatic masses suggestive of metastases. All CT scans at this facility are performed using low dose modulation techniqu es as appropriate to perform exam including the following: automated exposure c ontrol; use of iterative reconstruction technique; adjustment of the mA and/or kV according to patient size (this includes techniques or standardized protocol s for targeted exams where dose is matched to indication/reason for exam).
--- NOTE | ~2025-09-19 | XR_ITS ---
XR chest 2V HOSTORY: sob COMPARISON:[ None] FINDINGS: Frontal and lateral views of the chest were obtained. Right hilar opacity is noted. Groundglass opacities bilaterally. Left Port-A-Cath is in place. The heart size is normal in size. Pulmonary vasculature is unremarkable. Osseous structures are intact. IMPRESSION: Right perihilar opacity may represent mass or enlarged lymph node [ ] Reviewed, dictated and finalized at location S. HOST
--- OUTSIDE RECORDS SUMMARY | 2025-09-19 18:31 | XMS_ITS | Encounter Summary ---
Author Organization [facility] Address [address] [place] [address] Care Team Providers Care Plumber Assistant Name Role Phone Unavailable Primary Care Provider Unavailabl e Reason for Visit * Reason Onset Date Comments Hospital Follow Up 09/17/2025 Encounter Details Date Type Department Care Team (Late st Contact Info) Description 09/17/2025 Telephone [facility] Pulmonology [facility] [address] [place] [address] Farahat, Hamzah Duke MD [address] [place] [address] Hospital Follow Up Social History Tobacco Use Types Packs/Day Years Used Date Smoking Tobacco: Former Cigarettes 1 55 1 966 - 202 Food Insecurity Answer Date Recorded Do you find you are eating l ess than you should because you can t pay for food? No 08/21/2025 Transportation Needs Answer Date Record ed Have you gone without health care because you didn t have a way to get there? Or worry about transportation for future doctor visits, product picker medication, etc.? No 2024 Housing Stability Answer Date Recorded Do you worry you won t have a steady place to sleep or struggle to pay rent or mortgage? No 08/21/2025 Utility Needs Answer Date Recorded Do you have difficulty payin g for utility costs (electric, water or gas bills)? No 08/21/2025 Medication Needs Answer Date Recorded Have you skipped taking medi cation due to cost or worry you can t afford new medications? No 08/21/2025 Feeling Safe Answer Date Recorded Are you in a relationship wi th someone who hurts you emotionally and/or physically? No 08/21/2025 Food Insecurity Answer Date Recorded Patient needs follow up regardin 08/06/2025 Transportation Needs Answer Date Record ed Patient needs follow up regardin 08/06/2025 Utility Needs Answer Date Recorded Patient needs follow up regardin 08/06/2025 Comments No Sex and Gender Information Value Date Recorded Sex Assigned at Not on file Legal Sex Female 11:09 AM CDT Gender Identity Not on file Sexual Orientation Not on file documented as of this encounter Miscellaneous Notes * Telephone Encounter - Hamzah Butt MD - 09/17/2025 12:56 PM SCHEDULING SPECIALIST Fine to see in October. Can add onto late a.m. or Wednesday afternoon if nothing available. JF DULING SPECIALIST * Telephone Encounter - Fara Amaya - 09/17/2025 12:25 PM SCHEDULING SPECIALIST Patient recently admitted for dyspnea and you saw patient in hospital, an rn from oncology called to get patient in for hospital follow up. No openings until Oct, would you like to see patient sooner? DULING SPECIALIST documented in this encounter Plan of Treatment Upcoming Encounters Date Type Department Care Team (Late st Contact Info) Description 10/03/2025 2:45 PM SCHEDULING SPECIALIST Office Visit [facility] Oncology and Hematology [facility] [address] [place] [address] Pa Go MD [address] [place] [address] documented as of this encounter Visit Diagnoses Not on filedocumented in this encounter
--- OUTSIDE RECORDS SUMMARY | 2025-09-19 18:31 | XMS_ITS ---
Author Organization [facility] Address [address] [place] [address] Phone Care Team Providers Care Corporation Officer Name Role Phone Unavailable Primary Care Provider Unavailabl e Active Problems Problem Noted Date Diagnosed Date Goals of care, counseling/discussion 09/06/2025 Dyspnea 09/05/2025 History of pneumothorax 09/05/2025 Grief reaction 08/27/2025 Abnormal PET scan of head 08/23/2025 Overview (08/23/2025): Tongue uptake. Acute on chronic anemia 08/22/2025 Metastasis to bone 08/22/2025 Pneumothorax on left 08/21/2025 Assessment & Plan (08/21/2025 7:30 PM MAT MACHINE OPERATOR): Xray x2 rev/int= large post procedure pneumo. Then reduction with L ct placement Severe- large pneumo needing CT, severe pain, complicating comorbids Morphine IV prn Monitor for reaction, side effects, vitals Surgery is primary Rpt cxr in am Check cbc, cmp Consider toradol after labs IS Cancer, metastatic to bone 08/20/2025 Palliative care encounter 08/14/2025 NSCLC of right middle lobe 08/12/2025 Assessment & Plan (08/21/2025 7:30 PM MAT MACHINE OPERATOR): F/u oncology, no treatment planned here Port placed 08/21 MRI 08/11 reviewed no brain mets Chronic fatigue 08/12/2025 Treatment plan provided 08/12/2025 Health education/counseling 08/12/2025 ACP (advance care planning) 08/12/2025 Medically complex patient 08/12/2025 Metastasis to liver 08/12/2025 Oxygen dependent 08/12/2025 Acute exacerbation of chroni c obstructive pulmonary disease (COPD) 08/12/2025 Mediastinal lymphadenopathy 08/12/2025 Protein-calorie malnutrition, severe 08/08/2025 Acute on chronic respiratory failure with hypoxi a 08/08/2025 Mediastinal adenopathy 08/08/2025 Lung mass 08/06/2025 Assessment & Plan (08/06/2025 4:20 PM MAT MACHINE OPERATOR): Uploading osh CT Per records 3.3 cm R lung mass, new. 3.1 cm RML mass (seen 05/2025) Smoking hx Ddx: malignancy vs OI. Would benefit from bronch after treatment for acute resp failure Acute on chronic respiratory failure with hypoxia and hypercapnia 08/06/2025 Assessment & Plan (08/21/2025 7:30 PM MAT MACHINE OPERATOR): Xray x2 rev/int= large post procedure pneumo. Then reduction with L ct placement Severe- large pneumo needing CT, severe pain, complicating comorbids Morphine IV prn Monitor for reaction, side effects, vitals Surgery is primary Rpt cxr in am Check cbc, cmp Consider toradol after labs IS Assessment & Plan (08/06/2025 9:09 PM MAT MACHINE OPERATOR): Baseline 3L Hx copd/emphysema Sats 83% on arrival to OSH, pH7.33/61 Was on bipap at OSH On 4L now On pred daily at; home See pna/pjp Guaifenesin bid Solumedrol 40 q8 Cont home inhalers Duonebs CPT O2 prn cxr ADDENDEUM: inc wob. Was up to 12 L but now down to 6 after nebs. Saw her, comfortable, rr 20, still prolonged. Will get abg. Cxr reviewed= L infiltrated Emphysema lung 08/06/2025 Assessment & Plan (08/06/2025 9:09 PM MAT MACHINE OPERATOR): Baseline 3L Hx copd/emphysema Sats 83% on arrival to OSH, pH7.33/61 Was on bipap at OSH On 4L now On pred daily at; home See pna/pjp Guaifenesin bid Solumedrol 40 q8 Cont home inhalers Duonebs CPT O2 prn cxr ADDENDEUM: inc wob. Was up to 12 L but now down to 6 after nebs. Saw her, comfortable, rr 20, still prolonged. Will get abg. 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 Was up to 12 L but now down to 6 after nebs. Saw her, comfortable, rr 20, still prolonged. Will get abg. Cxr reviewed= L infiltrated On home oxygen therapy 08/06/2025 Assessment & Plan (08/06/2025 9:09 PM MAT MACHINE OPERATOR): Baseline 3L Hx copd/emphysema Sats 83% on arrival to OSH, pH7.33/61 Was on bipap at OSH On 4L now On pred daily at; home See pna/pjp Guaifenesin bid Solumedrol 40 q8 Cont home inhalers Duonebs CPT O2 prn cxr ADDENDEUM: inc wob. Was up to 12 L but now down to 6 after nebs. Saw her, comfortable, rr 20, still prolonged. Will get abg. Cxr reviewed= L infiltrated HIV (human immunodeficiency virus infection) 12/2024 Assessment & Plan (08/21/2025 7:30 PM MAT MACHINE OPERATOR): On ART Cont bactirm ppx CD4 48 08/16/25 Assessment & Plan (08/06/2025 4:20 PM MAT MACHINE OPERATOR): Cont ART, see med list Check cd4, VL Hypertension 08/06/2025 Assessment & Plan (08/21/2025 7:30 PM MAT MACHINE OPERATOR): Hold losartan Reassess in am Assessment & Plan (08/06/2025 4:20 PM MAT MACHINE OPERATOR): Hold home losartan Chronic combined systolic and diastolic heart fa ilure 08/06/2025 Assessment & Plan (08/06/2025 4:20 PM MAT MACHINE OPERATOR): Per OSH chart No crackles or edema currently No acute intervention needed. Consider reassessment of LVEF prior to dc. Tendinopathy of right biceps tendon 08/06/2025 Assessment & Plan (08/06/2025 4:20 PM MAT MACHINE OPERATOR): Hx noted Current chronic use of systemic steroids 025 Assessment & Plan (08/21/2025 7:30 PM MAT MACHINE OPERATOR): 3L at home Chronic pred use, 5 mg daily, just finished a taper Cont ICS/LABA, cont LAMA, cont SHERRI prn Assessment & Plan (08/06/2025 9:09 PM MAT MACHINE OPERATOR): Baseline 3L Hx copd/emphysema Sats 83% on arrival to OSH, pH7.33/61 Was on bipap at OSH On 4L now On pred daily at; home See pna/pjp Guaifenesin bid Solumedrol 40 q8 Cont home inhalers Duonebs CPT O2 prn cxr ADDENDEUM: inc wob. Was up to 12 L but now down to 6 after nebs. Saw her, comfortable, rr 20, still prolonged. Will get abg. Cxr reviewed= L infiltrated Former smoker 08/06/2025 Assessment & Plan (08/06/2025 9:09 PM MAT MACHINE OPERATOR): Baseline 3L Hx copd/emphysema Sats 83% on arrival to OSH, pH7.33/61 Was on bipap at OSH On 4L now On pred daily at; home See pna/pjp Guaifenesin bid Solumedrol 40 q8 Cont home inhalers Duonebs CPT O2 prn cxr ADDENDEUM: inc wob. Was up to 12 L but now down to 6 after nebs. Saw her, comfortable, rr 20, still prolonged. Will get abg. Cxr reviewed= L infiltrated Hyponatremia 08/06/2025 Assessment & Plan (08/06/2025 4:20 PM MAT MACHINE OPERATOR): Mild Volume down or euvolemic Na 132 @ OSH Repeat BMP Sepsis 08/06/2025 Assessment & Plan (08/06/2025 4:20 PM MAT MACHINE OPERATOR): RR 24, wbc 21 Was tachy as OSH. Treated with BiPAP, neds, epi, steroids Reported fever 11/2 LA 2.2 @ OSH She has respiratory failure MRSA pcr negative at OSH Viral panel neg @ OSH Treated for PJP in Jun 2025- I'm concerned she wasn't taking her bactrim after dc Cont 4L O2 (3L @ home) Bcx2 Sputum cx, afb, PCR for PJP Cont IVF Cefepime IV Bactrim 2 DS q8H If not resolving might need bronch sooner to evaluate for OI but would avoid if possible- she would be high risk for complication and has AHRF currently Check cmp, mg, cbc Reviewed OSH: EKG rev/int= sinus tach CT report-- 2 right sided masses. Infiltrates Reviewed all received OSH records Labs: BMP, LA, viral swab, MRSA PCR, CBC HCAP (healthcare-associated pneumonia) Assessment & Plan (08/06/2025 4:20 PM MAT MACHINE OPERATOR): RR 24, wbc 21 Was tachy as OSH. Treated with BiPAP, neds, epi, steroids Reported fever 11/2 LA 2.2 @ OSH She has respiratory failure MRSA pcr negative at OSH Viral panel neg @ OSH Treated for PJP in Jun 2025- I'm concerned she wasn't taking her bactrim after dc Cont 4L O2 (3L @ home) Bcx2 Sputum cx, afb, PCR for PJP Cont IVF Cefepime IV Bactrim 2 DS q8H If not resolving might need bronch sooner to evaluate for OI but would avoid if possible- she would be high risk for complication and has AHRF currently Check cmp, mg, cbc Reviewed OSH: EKG rev/int= sinus tach CT report-- 2 right sided masses. Infiltrates Reviewed all received OSH records Labs: BMP, LA, viral swab, MRSA PCR, CBC Pneumocystis jiroveci pneumonia 08/06/2025 Assessment & Plan (08/06/2025 4:20 PM MAT MACHINE OPERATOR): RR 24, wbc 21 Was tachy as OSH. Treated with BiPAP, neds, epi, steroids Reported fever 08/05 LA 2.2 @ OSH She has respiratory failure MRSA pcr negative at OSH Viral panel neg @ OSH Treated for PJP in Jun 2025- I'm concerned she wasn't taking her bactrim after dc Cont 4L O2 (3L @ home) Bcx2 Sputum cx, afb, PCR for PJP Cont IVF Cefepime IV Bactrim 2 DS q8H If not resolving might need bronch sooner to evaluate for OI but would avoid if possible- she would be high risk for complication and has AHRF currently Check cmp, mg, cbc Reviewed OSH: EKG rev/int= sinus tach CT report-- 2 right sided masses. Infiltrates Reviewed all received OSH records Labs: BMP, LA, viral swab, MRSA PCR, CBC Steroid-induced hyperglycemia 08/06/2025 Assessment & Plan (08/06/2025 4:20 PM MAT MACHINE OPERATOR): Check A1c HDSSI SADIE (obstructive sleep apnea) 08/06/2025 Current Treatment and Therapy Plans OP ONC LUNG (NSCLC)_CARBOPLATIN_PEMETREXED_EVERY 21 DAYS X 6 FOLLOWED BY PEMETREXED_EVERY 21 DAYS* Plan Start Date:08/19/2025 Plan Provider:Pa Go MD Linked Problems Cancer, metastatic to bone ( CMS/HCC)Metastasis to liver (CMS/HCC)NSCLC of right middle lobe (CMS/HCC) Treatment Medications Current Day (Addit ional Day, Standard Labs, Prescriptions and Pre-treatment Orders - Planned for 09/04/2025) Next Day (Day 1, Cycle 1 - Planned for 09/22/2025) CARBOplatin (PARAPLATIN) IVPBPEMEtrexed disodium (ALIMTA) IVPB No medications scheduled. CARBOplatin (PARAPLATIN) in dextrose 5 % 250 mL IVPBPEMEtrexed disodium (ALIMTA) 800 mg in sodium chloride 0.9 % 100 mL IVPB OP ONC ZOLEDRONIC ACID 4 MG (ZOMETA) FOR BONE METASTASIS OR MULTIPLE MYELOMA* Plan Start Date:08/20/2025 Plan Provider:Pa Go MD Linked Problems Cancer, metastatic to bone ( CMS/HCC)NSCLC of right middle lobe (CMS/HCC) Treatment Medications No medications scheduled. Past Treatment and Therapy Plans No past plan information found. Lifetime Dose Tracking * Chemical Lifetime Dose Automatic Entry Manual Entr y Effective Dose 30.27 mSv 30.27 mSv 0 mSv Total DLP 1,464.17 DLP 1,464.17 DLP 0 DLP CTDIvol Max 16.39 mGy 16.39 mGy 0 mGy CTDIvol Min 0.14 mGy 0.14 mGy 0 mGy
--- OUTSIDE RECORDS SUMMARY | 2025-09-19 18:31 | XMS_ITS | Continuity of Care Document ---
Author Organization [facility] Address [address] [place] [address] Care Team Providers Care Grocery Supervisor Name Role Phone CRYSTAL JOHNSON Primary Care Provider [phone] Assessment No assessment recorded. Plan of Treatment Reminders Order Date Submit Date Provider Last Modified By Organization Details Last Modified Time Details Appointments None recorded. Lab urinalysis, dipstick 2024 025 [email or web address] In-Office Order, Internal Use Only DO Not Attach Compendium DO Not Attach Compendium, Do Not Delete/merge, [id number] 16:03:15 urinalysis complete, reflex culture 2024 025 LEE ANN [facility], [address], [place] [address], [place], [address], 07:14:26 Referral None recorded. Procedures None recorded. Surgeries None recorded. Imaging None recorded. Medication Orders None recorded. Patient TargetsNo targets recorded. Patient InstructionsNo instructions recorded. Reason for Referral None Reported. Results Created Date Observation Date Name Description Value Unit Range Abnormal Flag Note LastModifiedBy Organization Detail LastModifiedTime 07/25/2007/26/2025 MICRO SCOPI C EXAMI NATIO N WBC None seen /hpf 0-5 Not Available [facility] ([facility]) [address] [facility], [place], [address], 07/26/2025 07:14:26 07/25/2007/26/2025 MICRO SCOPI C EXAMI NATIO N RBC None seen /hpf 0-2 Not Available [facility] ([facility]) [address] [facility], [place], [address], 07/26/2025 07:14:26 07/25/2007/26/2025 MICRO SCOPI C EXAMI NATIO N epithelial cells (non renal) 0-10 /hpf 0-10 Not Available [facility] ([facility]) [address] [facility], [place], [address], 07/26/2025 07:14:26 07/25/2007/26/2025 MICRO SCOPI C EXAMI NATIO N casts None seen /lpf nonese en Not Available [facility] ([facility]) [address] [facility], [place], [address], 07/26/2025 07:14:26 07/25/2007/26/2025 MICRO SCOPI C EXAMI NATIO N bacteria None seen nonese en/few Not Available [facility] ([facility]) [address] [facility], [place], [address], 07/26/2025 07:14:26 07/25/2007/26/2025 UA/M W/RFL X CULTU RE, ROUTI NE specific gravity 1.015 1.005- 1.030 Not Available [facility] ([facility]) [address] [facility], [place], [address], 07/26/2025 07:14:26 07/25/2007/26/2025 UA/M W/RFL X CULTU RE, ROUTI NE pH 8.0 5.0-7. 5 above high normal Not Available [facility] ([facility]) [address] [facility], [place], [address], 07/26/2025 07:14:26 07/25/2007/26/2025 UA/M W/RFL X CULTU RE, ROUTI NE urine-color YELLOW yellow Not Available [facility] ([facility]) [address] [place], [address], 07/26/2025 07:14:26 07/25/2007/26/2025 UA/M W/RFL X CULTU RE, ROUTI NE appearance TURBID clear abnormal Not Available [facility] ([facility]) [address] [facility], [place], [address], 07/26/2025 07:14:26 07/25/2007/26/2025 UA/M W/RFL X CULTU RE, ROUTI NE WBC esterase NEGATI VE negati ve Not Available [facility] ([facility]) [address] [facility], [place], [address], 07/26/2025 07:14:26 07/25/2007/26/2025 UA/M W/RFL X CULTU RE, ROUTI NE protein TRACE negati ve/tra ce Not Available [facility] ([facility]) [address] [facility], [place], [address], 07/26/2025 07:14:26 07/25/2007/26/2025 UA/M W/RFL X CULTU RE, ROUTI NE glucose NEGATI VE negati ve Not Available [facility] ([facility]) [address] [facility], [place], [address], 07/26/2025 07:14:26 07/25/2007/26/2025 UA/M W/RFL X CULTU RE, ROUTI NE ketones NEGATI VE negati ve Not Available [facility] ([facility]) [address] [facility], [place], [address], 07/26/2025 07:14:26 07/25/2007/26/2025 UA/M W/RFL X CULTU RE, ROUTI NE occult blood NEGATI VE negati ve Not Available [facility] ([facility]) [address] [facility], [place], [address], 07/26/2025 07:14:26 07/25/20 25 07/26/2025 UA/M W/RFL X CULTU RE, ROUTI NE bilirubin NEGATI VE negati ve Not Available [facility] ([facility]) [address] [facility], [place], [address], 07/26/2025 07:14:26 07/25/2007/26/2025 UA/M W/RFL X CULTU RE, ROUTI NE urobilinogen ,semi-qn 1.0 mg/dL 0.2-1. 0 Not Available [facility] ([facility]) [address] [facility], [place], [address], 07/26/2025 07:14:26 07/25/20 25 07/26/2025 UA/M W/RFL X CULTU RE, ROUTI NE nitrite, urine NEGATI VE negati ve Not Available [facility] ([facility]) [address] [facility], [place], [address], 07/26/2025 07:14:26 07/25/2007/26/2025 UA/M W/RFL X CULTU RE, ROUTI NE microscopic examination COMMEN T Micro scopi c follo ws if indic ated. Not Available [facility] ([facility]) [address] [facility], [place], [address], 07/26/2025 07:14:26 07/25/2007/26/2025 UA/M W/RFL X CULTU RE, ROUTI NE microscopic examination SEE BELOW: Micro scopi c was indic ated and was perfo rmed. Not Available [facility] ([facility]) [address] [facility], [place], [address], 07/26/2025 07:14:26 07/25/2007/26/2025 UA/M W/RFL X CULTU RE, ROUTI NE urinalysis reflex COMMEN T This speci men will not refle x to a Urine Cultu re. Not Available [facility] ([facility]) [address] [facility], [place], [address], 07/26/2025 07:14:26 07/25/2007/25/2025 urina lysis , dipst ick Leukocytes Negati ve Not Available In-Office Order Internal Use Only DO Not Attach Compendium DO Not Attach Compendium, Do Not Delete/merge, 07/25/2025 15:37:22 07/25/2007/25/2025 urina lysis , dipst ick Nitrite negati ve Not Available In-Office Order Internal Use Only DO Not Attach Compendium DO Not Attach Compendium, Do Not Delete/merge, 07/25/2025 15:37:22 07/25/2007/25/2025 urina lysis , dipst ick Urobilinogen 1 Not Available In-Of fice Order Internal Use Only DO Not Attach Compendium DO Not Attach Compendium, Do Not Delete/merge, 07/25/2025 15:37:22 07/25/2007/25/2025 urina lysis , dipst ick Protein 30 Not Available In-Office Order Internal Use Only DO Not Attach Compendium DO Not Attach Compendium, Do Not Delete/merge, 07/25/2025 15:37:22 07/25/2007/25/2025 urina lysis , dipst ick pH 8.0 Not Available In-Office Order Internal Use Only DO Not Attach Compendium DO Not Attach Compendium, Do Not Delete/merge, 07/25/2025 15:37:22 07/25/2007/25/2025 urina lysis , dipst ick Blood Non-He molyze d: Trace Not Available In-Office Order Internal Use Only DO Not Attach Compendium DO Not Attach Compendium, Do Not Delete/merge, 07/25/2025 15:37:22 07/25/2007/25/2025 urina lysis , dipst ick Specific [place] 1.010 Not Available In-Off ice Order Internal Use Only DO Not Attach Compendium DO Not Attach Compendium, Do Not Delete/merge, 07/25/2025 15:37:22 07/25/20 25 07/25/2025 urina lysis , dipst ick Ketone Trace Not Available In-Office Order Internal Use Only DO Not Attach Compendium DO Not Attach Compendium, Do Not Delete/merge, [id number] 07/25/2025 15:37:22 07/25/20 25 07/25/2025 urina lysis , dipst ick Bilirubin Negati ve Not Available In-Office Order Internal Use Only DO Not Attach Compendium DO Not Attach Compendium, Do Not Delete/merge, [id number] 07/25/2025 15:37:22 07/25/20 25 07/25/2025 urina lysis , dipst ick Glucose Negati ve Not Available In-Office Order Internal Use Only DO Not Attach Compendium DO Not Attach Compendium, Do Not Delete/merge, [id number] 07/25/2025 15:37:22 07/25/20 25 07/25/2025 urina lysis , dipst ick Appearance Cloudy Not Available In-Offi ce Order Internal Use Only DO Not Attach Compendium DO Not Attach Compendium, Do Not Delete/merge, [id number] 07/25/2025 15:37:22 07/25/2007/25/2025 urina lysis , dipst ick Color Pale Yellow Not Available In-Office Order Internal Use Only DO Not Attach Compendium DO Not Attach Compendium, Do Not Delete/merge, [id number] 07/25/2025 15:37:22 08/06/20 25 08/05/2025 XR, chest , 2 view No observ ation record ed. [facility] [address], [place], [address], 08/07/2025 12:43:19 08/06/2008/05/2025 CT, angio gram, chest , w/ contr ast No observ ation record ed. [facility] [address], [place], [address], 08/07/2025 11:14:26 Result Notes None recorded. 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 2021 KIMBERLI SALDANA Attn: Accountdutch g,[address] [facility], [place], [address], [place] [facility] 2 11:48:59 Tobacco dependence in remission 787557493 Active 2021 quit 01/2022 KIMBERLI SALDANA Attn: Accountdutch nixon,[address] [facility], [place], [address], [place] [facility] 2 11:49:16 Prediabete s 122008287 Active 2021 a1c 6.4 KIMBERLI SALDANA Attn: Accountdutch nixon,[address] [facility], [place], [address], [place] [facility] 2 11:15:00 Liver mass 496472070 Active 2023 MRI nl KIMBERLI SALDANA Attn: Accountdutch g,[address] [facility], [place], [address], [place] [facility] 4 09:17:42 Pulmonary emphysema 55166189 Active 2023 KIMBERLI SALDANA Attn: Accountdutch g,[address] [facility], [place], [address], [place] [facility] 4 09:25:28 Screening for malignant neoplasm of colon Active 2023 cologuard negative 06/2024, repeat 2026 KIMBERLI SALDANA Attn: Accountin g,[address] [facility], [place], [address], [facility] 4 10:56:13 Problem Notes None recorded. Procedures Surgical History Date Name Laterality Status Provider Name and Address Organization Details Recorded Time Partial hysterectomy completed Danni Chowdary MA [facility] 03/20/2022 11:01:10 tonsilectomy/wicho oids completed Danni Chowdary MA [facility] 03/20/2022 11:01:18 Imaging Results None recorded. Procedure Notes None recorded. Medical Equipment None Reported. Allergies Allergen ID Allergen Name Allergen Category Reaction Reaction Severity Criticality Documentation Date Start Date Code Code System Note Provider Name and Address Organization Details Recorded Time 425315 Demerol medicatio n Not available Not available Not available 03/20/2022 43784 1 RxNorm Danni Chowdary MA null, [facility] 2 10:55:01 20290404 meperidin e medicatio n anaphylax is Not available [facility] 07/24/20252021 6754 RxNorm Not Available lee ann - External Data Service - prod 5 16:20:33 Medications Name Sig Start Date Stop Date Status Note LastModified by Organization Details LastModified Time Prescriptio n - Renewal 05/20 completed Not Available Not Available Not Available Prescriptio n - New 05/20 completed Not Available Not Available Not Available Prescriptio n - Prior Authorizati on Request 05/20 completed Not Available Not Available Not Available nystatin 100,000 unit/mL oral suspension TAKE 2 ML (200,000 UNITS) BY MOUTH 4 TIMES DAILY FOR 1 DAY. active Not Available Not Available No t Available prednisone 10 mg tablet TAKE 1 [...] Not Available Not Available Not Available prednisone 5 mg tablet TAKE 1 TABLET BY MOUTH DAILY. START TAKING AFATER 06/07, ONCE THE 7.5 MG IS COMPLETED active Not Available Not Available No t Available sulfamethox azole 800 mg-trimetho prim 160 mg tablet TAKE 2 TABLETS BY MOUTH EVERY 8 HOURS active Not Available Not Available No t Available prednisone 2.5 mg tablet TAKE 3 TABLETS BY MOUTH DAILY AT 8:00 AM active Not Available Not Available No t Available dexamethaso ne 4 mg tablet PLEASE SEE ATTACHED FOR DETAILED DIRECTION S active Not Available Not Available No t Available losartan 25 mg tablet TAKE 1 TABLET BY MOUTH EVERY DAY IN THE MORNING active Not Available Not Available No t Available folic acid 1 mg tablet TAKE 1 TABLET BY MOUTH [...] Available Not Available Not Available levofloxaci n 750 mg tablet TAKE 1 TABLET BY MOUTH DAILY X2 DAYS active Not Available Not Available No t Available methylpredn isolone 4 mg tablets in [...] Not Available Not Available No t Available ondansetron 4 mg disintegrat ing tablet TAKE 1 TABLET BY MOUTH EVERY 8 HOURS NEEDED FOR NAUSEA AND VOMITING FOR 5 DAYS active Not Available Not Available No t Available amoxicillin 875 mg-gunnar brownlee clavulanate 125 mg tablet TAKE 1 TABLET BY MOUTH EVERY 12 HOURS WITH MEALS FOR 7 DAYS 02/02 completed Not Available Not Available Not Available Spiriva with HandiHaler 18 mcg and inhalation capsules active Not Available Not Available Not Available albuterol sulfate concentrate 2.5 mg/0.5 mL solution for nebulizatio n Inhale 0.5 mL 3 times a day by nebulizat ion route as needed, for wheezing. 2024 active Not Available Not Available Not Avai lable Truvada 200 mg-300 mg tablet Take 1 tablet every day by oral route as directed for 30 days, for HIV. 2024 active Not Available Not Available Not Avai lable Truvada 03/20 completed Not Available Not Available Not Available Symbicort 160 mcg-4.5 mcg/actuati on HFA aerosol inhaler INHALE 2 PUFFS INTO THE LUNGS TWICE A DAY active Not Available Not Available No t Available ritonavir 100 mg tablet TAKE 1 TABLET BY MOUTH EVERY DAY DIRECTED active Not Available Not Available No t Available Mucus Relief ER 600 mg tablet, extended release TAKE 1 TABLET BY MOUTH EVERY 12 HOURS FOR 7 DAYS 02/16 completed Not Available Not Available Not Available darunavir 800 mg tablet TAKE 1 TABLET BY MOUTH EVERY DAY DIRECTED active Not Available Not Available No t Available Spiriva Respimat 2.5 mcg/actuati on solution for inhalation INHALE 2 PUFFS BY MOUTH DAILY active Not Available Not Available No t [...] Not Available Not Available Not Available Vitals None Recorded Social History Question Answer Notes LastModified by Organizat ion Details LastModified Time Tobacco Smoking Status Former Smoker Quit smoking in 10/2021 Chiqui Barahona, G[place] null, [place] - [facility] 06/25/2022 10:53:32 Do You Have An Advance [...] Information not available 03/20/2022 HIV Dx By [facility] No Informatio n not available 03/14/2025 HIV Risk Counseling #1 03/14/2025 Information not available 03/14/2025 HIV QI Project No Information not available 03/14/2025 Dental Provider None Information not available 03/14/2025 Do You Feel Physically And Emotionally Safe In Your Neighborhood Or Other Public Places? Yes Information not available 03/14/2025 URN [id number] Information no t available 04/16/2025 Current Gender Identity Female Information not available 03/14/2025 Statistician Theoretical / Phone # None Information not available 04/20/2025 Statistician TheoreticalStitch Bonding Machine Operator None Information not available 04/20/2025 Risk Factor 1 Heterosexual Contact Information not available 03/14/2025 Program Designation Orlando Hernandez Information not available 03/15/2025 HIV Diagnosis Date 10/04/1999 Information not available 03/14/2025 Do You Have A Medical Power Of Display Designer? No [email or web address] Information not available 12/08/2022 What Was The Date Of Your Most Recent Tobacco Screening? 04/24/2025 Information not available 04/24/2025 What Is Your Current Pack Years? [email or web address] [...] What Date Was Tobacco Cessation Counseling Provided? 04/24/2025 Information not available 04/24/2025 How Many Years Have You Smoked Tobacco? [...] 03/20/2022 Are you able to care for yourself independently? Yes Information not available 03/20/2022 What is your exercise level? Moderate Information not available 03/20/2022 Mental Status Question Answer Note LastModified by Organization D etails LastModified Time Do you feel stressed (tense, restless, nervous, or anxious, or unable to sleep at night)? [id number] Information not available 03/20/2022 Family History Relationship Description Onset Age of this Age Resolved Age Notes LastModified by Organization Details LastModified Time Mother Malignant neoplasm of lung [email or web address] Not available 2021 10:48:48 Notes:Mother had Lung Cancer Medical History Condition Response Coronary Artery Disease N Other Y Atrial Fibrillation N High Blood Pressure Y Thyroid Problems N Kidney or Bladder Problems N Depression N COPD Y Blood Clots N GI Problems N Skin Problems N Eating Disorder N Anemia N Heart Attack (CA) N Diabetes N Anxiety Disorder N Muscle, Joint, or Bone Problems N Seizures/Epilepsy N Acid Reflux (GERD) N Cancer N Stroke N Allergies N Asthma N ADHD N Substance Abuse N High Cholesterol N Hepatitis N Liver Disease N Schizophrenia N Headaches N Osteoporosis N Heart Failure N Gynecological History Statement/Question Response Current Control Method Hysterectom y Obstetrics History GPAL:G 2 P 2 0 0 2 Type Value Full Term 2 Living 2 Total 2 Immunizations Vaccine Type Date Status Note Provider Nam e and Address Organization Details Recorded Time COVID-19, mRNA, LNP-S, PF, 30 mcg/0.3 mL dose 2 completed CHENG [place], [place] [facility] 04/14/2024 12:17:23 COVID-19, mRNA, LNP-S, PF, 30 mcg/0.3 mL dose 1 completed CHENG [place] [facility] 04/14/2024 12:17:23 COVID-19, [...] [facility] 04/14/2024 12:17:23 Pneumococcal conjugate PCV20, polysaccharide IVQ247 conjugate, adjuvant, PF 2 completed CHENG [place] [facility] 04/14/2024 12:17:23 pneumococcal polysaccharide PPV23 9 completed CHENG [place] [facility] 04/14/2024 12:17:23 Tdap 5 completed Vaishali Clifford MA null, [place] - [facility] 03/14/2025 13:55:16 HepB-CpG 5 completed Vaishali Clifford [place] null, [place] [facility] 04/24/2025 16:44:30 Past Encounters Encounter ID Performer Location Encounter Start Date Encounter Closed Date Diagnosis/Indication Diagnosis SNOMED-CT Code Diagnosis ICD10 Code Diagnosis IMO Codes Diagnosis Note [id number] Jason Salinas MD [facility] [address] [place] [address] 07/25/2025 15:10:45 07/25/2025 15:44:50 Dysuria 63650643 R30.0 35216 Health Concerns Section Related Observation LastModified by Organization Detai ls LastModified Time None Recorded Concern Status LastModified by Organization Details LastModified Time None Recorded Payers Encounter Date Sequence Insurance Name Policy Number Policy Lundberg Covered Member ID Lundberg Member ID Guarantor Name 07/25/2025 1 [facility] (MEDICAID HMO) [id number] Roxanne Lucas [id number] Roxanne Lucas OBGyn Episode No OBEpisode recorded.
--- OUTSIDE RECORDS SUMMARY | 2025-09-19 18:31 | XMS_ITS | Encounter Summary ---
Author Organization [facility] Address [address] [place] [address] Care Team Providers Care Rn Er Name Role Phone Unavailable Primary Care Provider Unavailabl e Encounter Details Date Type Department Care Team (Late st Contact Info) Description 09/16/2025 Orders Only [facility] Oncology and Hematology [facility] [address] [facility] [address] [place] [address] Pa Go MD [address] [place] [address] Post-op pain Social History Tobacco Use Types Packs/Day Years Used Date Smoking Tobacco: Former Cigarettes 1 55 1 966 - 2020 Food Insecurity Answer Date Recorded Do you find you are eating l ess than you should because you can t pay for food? No 08/21/2025 Transportation Needs Answer Date Record ed Have you gone without health care because you didn t have a way to get there? Or worry about transportation for future doctor visits, citrus picker medication, etc.? No 2024 Housing Stability [...] on file documented as of this encounter Plan of Treatment Upcoming Encounters Date Type Department Care Team (Late st Contact Info) Description 10/03/2025 2:45 PM HEAT AND FROST INSULATOR Office Visit [facility] Oncology and Hematology [facility] [address] [facility] [address] [place] [address] Pa Go MD [address] [place] [address] documented as of this encounter Visit Diagnoses Diagnosis Post-op pain Other acute postoperative pain documented in this encounter
--- OUTSIDE RECORDS SUMMARY | 2025-09-19 18:31 | XMS_ITS | Clinical Summary ---
Author Organization [facility] Address [address] [place] [address] Care Team Providers Care Sheep Herder Name Role Phone Donya Mejia Primary Care Provider [phone] Allergies Active Allergy Reactions Criticality Noted Date Comments Meperidine Anaphylaxis High 08/17/2022 [place] Rash Medium 08/17/2022 Medications albuterol HFA (PROVENTIL [...] in limb 08/17/2022 Right wrist pain 07/02/2022 Encounters Date Type Department Care Team Description 07/06/2025 Telephone [facility] Pulmonary at [address] [place] [address] Izzy Colin CMA from Last 3 Months Surgical History Surgery Date Site/Laterality Comments HYSTERECTOMY TONSILLECTOMY Medical History Medical History Date Comments HIV disease (HCC) Cavernous angioma brain stem Family History Medical History Relation Name Comments Cancer Father Cancer Mother Diabetes Mother Relation Name Status Comments Father Mother Social History Tobacco Use Types Packs/Day Years Used Date Smoking Tobacco: Former Cigarettes Tobacco Cessation:Counseling Given: Not Answered Comments Unknown Sex and Gender Information Value Date Recorded Sex Assigned at Not on file Legal Sex Female 1:28 PM PROBATION AND PATROL AGENT Gender Identity Not on file Sexual Orientation Not on file Last Filed Vital Signs Vital Sign Reading Time Taken Comments Blood Pressure - - Pulse - - Temperature - - Respiratory Rate - - Oxygen Saturation - - Inhaled Oxygen Concentration - - Weight 49.9 kg (110 lb) 08/17/2022 12:54 PM PROBATION AND PATROL AGENT Height 160 cm (5' 3) 08/17/2022 12:54 PM PROBATION AND PATROL AGENT Body Mass Index 19.49 08/17/2022 12:54 PM PROBATION AND PATROL AGENT Plan of Treatment Not on file Insurance [facility] [place] [address] [place] [address] Care Teams Sheep Herder Relationship Specialty Start Date End Date Donya Mejia PA [address] [place] [id number] PCP - General Physician Histology Teacher 03/26/22
--- OUTSIDE RECORDS SUMMARY | 2025-09-19 18:31 | XMS_ITS | Encounter Summary ---
Author Organization [facility] Address [address] [place] [address] Care Team Providers Care Enforcement Safety Officer Name Role Phone Unavailable Primary Care Provider Unavailabl e Reason for Visit * Reason Comments Nurse Navigation Follow up Encounter Details Date Type Department Care Team (Late st Contact Info) Description 09/19/2025 Chart Note [facility] Oncology Patient Navigation [address] [place] [address] Felisa Hyatt, RN Nurse Navigation (Follow up) Social History Tobacco Use Types Packs/Day Years Used Date Smoking Tobacco: Former Cigarettes 1 55 1 2020 Food Insecurity Answer Date Recorded Do you find you are eating l ess than you should because you can t pay for food? No 08/21/2025 Transportation Needs Answer Date Record ed Have you gone without health care because you didn t have a way to get there? Or worry about transportation for future doctor visits, waste picker medication, etc.? No 2024 Housing Stability [...] on file documented as of this encounter Progress Notes * Felisa Hyatt, RN - 09/19/2025 3:43 PM CST Nurse navigation -- spoke with patient regarding rescheduling visit with ENT -- pt states she is struggling to breath and is wheezing, asked if she should turn up her oxygen. I explained that turningup her oxygen may make breathing more difficult, advised pt to go to ER. Pt states she will call ambulance now. Felisa Hyatt RN, BSN Pulmonary Oncology Nurse Navigator T SCIENTIST documented in this encounter Plan of Treatment Upcoming Encounters Date Type Department Care Team (Late st Contact Info) Description 10/03/2025 2:45 PM PLANT SCIENTIST Office Visit [facility] Oncology and Hematology [facility] [address] [facility] [address] [place] [address] Pa Go MD [address] [place] [address] documented as of this encounter Visit Diagnoses Not on filedocumented in this encounter
--- OUTSIDE RECORDS SUMMARY | 2025-09-19 18:32 | XMS_ITS | Data Portability ---
Author Organization [facility] Donna 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 Lab urinalys is, dipstick 2024 025 alia In-Office Order, Internal Use Only DO Not Attach Compendium DO Not Attach Compendium, Do Not Delete/merge, [id number] 16:03:15 urinalys is complete , reflex culture 2024 025 LEE ANN [facility], [address], [address], [address], 07:14:26 urinalys is, dipstick 2024 025 LEE ANN In-Office Order, Internal Use Only DO Not Attach Compendium DO Not Attach Compendium, Do Not Delete/merge, [id number] 08/06/202 5 17:34:23 HIV-1 RNA, quantita tive, PCR, serum or plasma 2024 025 [facility], [address], [address], [place], [address], 5 20:09:45 CMP, serum or plasma 2024 025 [facility], [address], [address], [place], [address], 5 08:23:54 CBC w/ auto diff 2024 025 [facility], [address], [address], [place], [address], 5 08:23:55 cd4 T-cells, blood 2024 025 [facility], [address], [address], [place], [address], 5 09:39:56 Hepatiti s C IgG Ab, qual, serum 2024 025 [facility], [address], [address], [place], [address], 5 09:39:52 chlamydi a trachoma tis + neisseri a gonorrho eae + trichomo maverick vaginali s rRNA panel, JOSH+prob e 2024 025 [facility], [address], [address], [place], [address], 5 09:39:53 RPR (rapid plasma reagin), serum 2024 025 [facility], [address], [address], [place], [address], 5 09:39:59 HIV-1 RNA, quantita tive, PCR, serum or plasma 2024 025 LEE ANNJOSIAS [facility], [address], [address], [place], [address], 5 19:09:33 CMP, serum or plasma 2024 025 LEE ANN [facility], [address], [address], [place], [address], 5 09:39:55 CBC w/ auto diff 2024 025 [email or web address] [facility], [address], [address], [place], [address], 5 11:14:23 Mycobact erium tubercul osis stimulat ed gamma interfer on, qual, blood 2024 025 LEE ANN Ramirez, [address], [address], [place], [address], 5 06:15:26 hepatiti s B surface Ab, quantita tive, serum 2024 025 LEE ANN [facility], [address], [address], [place], [address], 5 09:39:58 lipid panel, serum 2024 025 LEE ANN Ramirez, [address], [address], [place], [address], 5 09:39:54 HIV 1 + 2, meaningf ul use set 2024 025 LEE ANN Ramirez, [address], [address], [place], [address], 5 09:40:00 HIV 1 RNA reverse transcri ptase and protease and integras e gene mutation s detected , sequenci ng, plasma 2024 025 LEE ANN Ramirez, [address], [address], [place], [address], 5 09:39:57 Referral pulmonol ogist referral 2024 025 LEE ANN Estrada MD, [address] [facility] [address], [place], [address], 5 16:02:14 ophthalm ologist referral 2024 025 addi [email or web address] [facility], [address], [place], [address], 5 10:54:45 Procedures None recorded . Surgeries None recorded . Imaging XR, chest, 2 view [address], [address], [place], [address], 5 09:13:35 XR, chest, 2 view - Follow up bilatera l PNA 2024 025 [facility], [address], [place], [address], 5 13:45:49 MAMMO, screenin g, digital, bilatera l 2024 025 [facility] [place] (Mamm[facility]) , [address], [place], [address], 5 14:24:47 Medication Orders Spiriva Respimat 2.5 mcg/actu ation solution for inhalati on 2024 025 [facility] #[id number], [address], [place], [address], 5 09:22:38 fluconaz ole 200 mg tablet 2024 025 [facility] #[id number], [address], [place], [address], 15:09:46 Patient TargetsNo targets recorded. Patient Instructions Encounter Date Encounter Id Patient Instructions Last Modified By Organization Details Last Modified Time 02/21/2025 [id number] 6 minute walk test* felisha Not steffanie lable 02/21/2025 16:51:08 03/14/2025 [id number] mammogram: about this test oajao Not available 03/14/2025 11:07:09 acquired immunodeficiency syndrome (AIDS): care instructions oajao Not available 03/14/2025 11:01:02 Most recent HIV labs from [facility] Records [facility] Op[facility] Follow up in 6 weeks oajao Not available 03/14/2025 11:09:02 HIV risk residence counselor ing was done oajao Not available 03/14/2025 14:08:59 04/24/2025 [id number] candidiasis: car e instructions oajao Not available 04/24/2025 15:09:43 eating healthy foods: care instructions oajao Not available 04/24/2025 15:16:19 Labs today D/C summary from , please Follow up with your net fisher Follow up with your PCP (Scheduled for 06/14/2025) CXR 06/01 Fluconazole Complete the course of Prednisone Continue Truvada/Norvir and Prezista Follow up in 1 month oajao Not available 04/24/2025 16:24:55 The role of her Spiriva was discussed, I have explained to her that she is on one and not two steroid inhalers. oajao Not available 04/24/2025 16:24:15 Reason for Referral Relations Manager Referral for Blurring of visual image Blurred vision, L. eye. Hx of cataracts and HIV disease Referring Physician: Cinda Go, Internal Medicine, Encounter Date: 03/14/2025 Histologic Technician Referral for P ulmonary emphysema Referring Physician: Donya Johnson, Family Medicine, Encounter Date: 05/09/2025 Results Created Date Observation Date Name Description Value Unit Range Abnormal Flag Note LastModifiedBy Organization Detail LastModifiedTime 03/14/20 25 03/16/2025 RNA, REAL TIME PCR (NON- GRAPH ) HIV-1 RNA by PCR [id number] copie s/mL The repor table range for this assay is 20 to 10,00 0,000 copie s HIV-1 RNA/m L. Not Available [facility] ([facility]) [address] [facility], [place], [address], 03/16/2025 19:09:33 03/14/20 25 03/16/2025 RNA, REAL TIME PCR (NON- GRAPH ) log10 HIV-1 RNA 4.852 log10 copy/ mL Not Available [facility] ([facility]) [address] [facility], [place], [address], 03/16/2025 19:09:33 03/14/2003/15/2025 QUANT IFERO N-TB GOLD PLUS quantiferon incubation INCUBA TION PERFOR MED. Not Available [facility] ([facility]) [address] [facility], [place], [address], 03/17/2025 06:15:26 03/14/2003/15/2025 QUANT IFERO N-TB GOLD [...] ol for the test. Not Available [facility] ([facility]) [address] [facility], [place], [address], 03/17/2025 06:15:26 03/14/2003/16/2025 QUANT IFERO N-TB GOLD PLUS quantiferon- TB [...] y metho dolog y Not Available [facility] ([facility]) [address] [place], [address], 03/17/2025 06:15:26 03/14/20 25 03/16/2025 QUANT IFERO N-TB GOLD PLUS quantiferon TB1 Ag value 0.04 IU/mL Not Available [facility] ([facility]) [address] [place], [address], 03/17/2025 06:15:26 03/14/20 25 03/16/2025 QUANT IFERO N-TB GOLD PLUS quantiferon TB2 Ag value 0.04 IU/mL Not Available [facility] ([facility]) [address] [place], [address], 03/17/2025 06:15:26 03/14/20 25 03/16/2025 QUANT IFERO N-TB GOLD PLUS quantiferon nil value 0.04 IU/mL Not Available [facility] ([facility]) [address] [place], [address], 03/17/2025 06:15:26 03/14/2003/16/2025 QUANT IFERO N-TB GOLD PLUS quantiferon mitogen value >10.00 IU/mL Not Available [facility] ([facility]) [address] [place], [address], 03/17/2025 06:15:26 03/14/20 25 03/15/2025 HCV ANTIB JALEN hep C virus Ab NON REACTI VE nonrea ctive HCV antib jalen alone does not diffe renti ate betwe en previ ously resol liss infec tion and activ e infec tion. Equiv ocal and React rodo HCV antib jalen resul ts shoul d be follo wed up with an HCV RNA test to suppo rt the diagn osis of activ e HCV infec tion. Not Available [facility] ([facility]) [address] [place], [address], 03/22/2025 09:39:52 03/14/20 25 03/16/2025 CT, NG, TRICH VAG BY JOSH chlamydia by JOSH NEGATI VE negati ve Not Available [facility] ([facility]) [address] [place], [address], 03/22/2025 09:39:53 03/14/20 25 03/16/2025 CT, NG, TRICH VAG BY JOSH gonococcus by JOSH NEGATI VE negati ve Not Available [facility] ([facility]) [address] [place], [address], 03/22/2025 09:39:53 03/14/20 25 03/16/2025 CT, NG, TRICH VAG BY JOSH trich vag by JOSH NEGATI VE negati ve Not Available [facility] ([facility]) [address] [place], [address], 03/22/2025 09:39:53 03/14/20 25 03/15/2025 LIPID PANEL cholesterol, total 170 mg/dL 100-19 9 Not Available [facility] ([facility]) [address] [place], [address], 03/22/2025 09:39:54 03/14/20 25 03/15/2025 LIPID PANEL triglyceride s 48 mg/dL 0-149 Not Available [facility] ([facility]) [address] [place], [address], 03/22/2025 09:39:54 03/14/20 25 03/15/2025 LIPID PANEL HDL cholesterol 70 mg/dL >39 Not Available [facility] ([facility]) [address] [place], [address], 03/22/2025 09:39:54 03/14/20 25 03/15/2025 LIPID PANEL VLDL cholesterol vaishali 10 mg/dL 5-40 Not Available [facility] ([facility]) [address] [facility], [place], [address], 03/22/2025 09:39:54 03/14/20 25 03/15/2025 LIPID PANEL LDL chol calc ([facility]) 90 mg/dL 0-99 Not Available [facility] ([facility]) [address] [facility], [place], [address], 03/22/2025 09:39:54 03/14/20 25 03/15/2025 COMP. METAB OLIC PANEL (14) glucose 81 mg/dL 70-99 Not Available [facility] ([facility]) [address] [place], [address], 03/22/2025 09:39:55 03/14/20 25 03/15/2025 COMP. METAB OLIC PANEL (14) BUN 8 mg/dL 8-27 Not Available [facility] ([facility]) [address] [place], [address], 03/22/2025 09:39:55 03/14/20 25 03/15/2025 COMP. METAB OLIC PANEL (14) creatinine 0.63 mg/dL 0.57-1 .00 Not Available [facility] ([facility]) [address] [place], [address], 03/22/2025 09:39:55 03/14/20 25 03/15/2025 COMP. METAB OLIC PANEL (14) eGFR 100 mL/mi n/1.7 3 >59 Not Available [facility] ([facility]) [address] [place], [address], 03/22/2025 09:39:55 03/14/20 25 03/15/2025 COMP. METAB OLIC PANEL (14) BUN/creatini ne ratio 13 12-28 Not Available [facility] ([facility]) [address] [facility] [place], [address], 03/22/2025 09:39:55 03/14/20 25 03/15/2025 COMP. METAB OLIC PANEL (14) sodium 134 mmol/ L 134-14 4 Not Available [facility] ([facility]) [address] [facility] [place], [address], 03/22/2025 09:39:55 03/14/20 25 03/15/2025 COMP. METAB OLIC PANEL (14) potassium 4.9 mmol/ L 3.5-5. 2 Not Available [facility] ([facility]) [address] [facility], [place], [address], 03/22/2025 09:39:55 03/14/20 25 03/15/2025 COMP. METAB OLIC PANEL (14) chloride 94 mmol/ L 96-106 below low normal Not Available [facility] ([facility]) [address] [facility] [place], [address], 03/22/2025 09:39:55 03/14/20 25 03/15/2025 COMP. METAB OLIC PANEL (14) carbon dioxide, total 27 mmol/ L 20-29 Not Available [facility] ([facility]) [address] [facility] [place], [address], 03/22/2025 09:39:55 03/14/20 25 03/15/2025 COMP. METAB OLIC PANEL (14) calcium 9.1 mg/dL 8.7-10 .3 Not Available [facility] ([facility]) [address] [facility] [place], [address], 03/22/2025 09:39:55 03/14/20 25 03/15/2025 COMP. METAB OLIC PANEL (14) protein, total 6.9 g/dL 6.0-8. 5 Not Available [facility] ([facility]) [address], [place], [address], 03/22/2025 09:39:55 03/14/20 25 03/15/2025 COMP. METAB OLIC PANEL (14) albumin 4.0 g/dL 3.9-4. 9 Not Available [facility] ([facility]) [address], [place], [address], 03/22/2025 09:39:55 03/14/20 25 03/15/2025 COMP. METAB OLIC PANEL (14) globulin, total 2.9 g/dL 1.5-4. 5 Not Available [facility] ([facility]) [address], [place], [address], 03/22/2025 09:39:55 03/14/20 25 03/15/2025 COMP. METAB OLIC PANEL (14) bilirubin, total <0.2 mg/dL 0.0-1. 2 Not Available [facility] ([facility]) [address], [place], [address], 03/22/2025 09:39:55 03/14/20 25 03/15/2025 COMP. METAB OLIC PANEL (14) alkaline phosphatase 78 IU/L 44-121 Not Available [facility] ([facility]) [address] [facility], [place], [address], 03/22/2025 09:39:55 03/14/20 25 03/15/2025 COMP. METAB OLIC PANEL (14) AST (SGOT) 21 IU/L 0-40 Not Available [facility] ([facility]) [address] [facility] [place], [address], 03/22/2025 09:39:55 03/14/20 25 03/15/2025 COMP. METAB OLIC PANEL (14) ALT (SGPT) 13 IU/L 0-32 Not Available [facility] ([facility]) [address] [facility], [place], [address], 03/22/2025 09:39:55 03/14/20 25 03/14/2025 HELPE R T-LYM PH-CD 4 WBC 6.6 x10e3 /uL 3.4-10 .8 Not Available [facility] ([facility]) [address] [facility], [place], [address], 03/22/2025 09:39:56 03/14/20 25 03/14/2025 HELPE R T-LYM PH-CD 4 RBC 4.89 x10e6 /uL 3.77-5 .28 Not Available [facility] ([facility]) [address] [place], [address], 03/22/2025 09:39:56 03/14/20 25 03/14/2025 HELPE R T-LYM PH-CD 4 hemoglobin 12.2 g/dL 11.1-1 5.9 Not Available [facility] ([facility]) [address] [facility], [place], [address], 03/22/2025 09:39:56 03/14/2003/14/2025 HELPE R T-LYM PH-CD 4 hematocrit 40.6 % 34.0-4 6.6 Not Available [facility] ([facility]) [address] [place], [address], 03/22/2025 09:39:56 03/14/20 25 03/14/2025 HELPE R T-LYM PH-CD 4 MCV 83 fL 79-97 Not Available [facility] ([facility]) [address] [place], [address], 03/22/2025 09:39:56 03/14/20 25 03/14/2025 HELPE R T-LYM PH-CD 4 MCH 24.9 pg 26.6-3 3.0 below low normal Not Available [facility] ([facility]) [address] [place], [address], 03/22/2025 09:39:56 03/14/20 25 03/14/2025 HELPE R T-LYM PH-CD 4 MCHC 30.0 g/dL 31.5-3 5.7 below low normal Not Available [facility] ([facility]) [address] [facility], [place], [address], 03/22/2025 09:39:56 03/14/20 25 03/14/2025 HELPE R T-LYM PH-CD 4 RDW 13.6 % 11.7-1 5.4 Not Available [facility] ([facility]) [address] [facility], [place], [address], 03/22/2025 09:39:56 03/14/20 25 03/14/2025 HELPE R T-LYM PH-CD 4 platelets 339 x10e3 /uL 150-45 0 Not Available [facility] ([facility]) [address] [facility], [place], [address], 03/22/2025 09:39:56 03/14/20 25 03/14/2025 HELPE R T-LYM PH-CD 4 neutrophils 73 % notest ab. Not Available [facility] ([facility]) [address] [facility], [place], [address], 03/22/2025 09:39:56 03/14/20 25 03/14/2025 HELPE R T-LYM PH-CD 4 lymphs 17 % notest ab. Not Available [facility] ([facility]) [address] [facility], [place], [address], 03/22/2025 09:39:56 03/14/20 25 03/14/2025 HELPE R T-LYM PH-CD 4 monocytes 7 % notest ab. Not Available [facility] ([facility]) [address] [facility], [place], [address], 03/22/2025 09:39:56 03/14/20 25 03/14/2025 HELPE R T-LYM PH-CD 4 eos 3 % notest ab. Not Available [facility] ([facility]) [address] [facility], [place], [address], 03/22/2025 09:39:56 03/14/20 25 03/14/2025 HELPE R T-LYM PH-CD 4 basos 0 % notest ab. Not Available [facility] ([facility]) [address] [facility], [place], [address], 03/22/2025 09:39:56 03/14/20 25 03/14/2025 HELPE R T-LYM PH-CD 4 neutrophils (absolute) 4.8 x10e3 /uL 1.4-7. 0 Not Available [facility] ([facility]) [address] [facility], [place], [address], 03/22/2025 09:39:56 03/14/2003/14/2025 HELPE R T-LYM PH-CD 4 lymphs (absolute) 1.1 x10e3 /uL 0.7-3. 1 Not Available [facility] ([facility]) [address] [facility], [place], [address], 03/22/2025 09:39:56 03/14/2003/14/2025 HELPE R T-LYM PH-CD 4 monocytes(ab solute) 0.5 x10e3 /uL 0.1-0. 9 Not Available [facility] ([facility]) [address] [place], [address], 03/22/2025 09:39:56 03/14/2003/14/2025 HELPE R T-LYM PH-CD 4 eos (absolute) 0.2 x10e3 /uL 0.0-0. 4 Not Available [facility] ([facility]) [address] [facility], [place], [address], 03/22/2025 09:39:56 03/14/20 25 03/14/2025 HELPE R T-LYM PH-CD 4 baso (absolute) 0.0 x10e3 /uL 0.0-0. 2 Not Available [facility] ([facility]) [address] [facility], [place], [address], 03/22/2025 09:39:56 03/14/20 25 03/14/2025 HELPE R T-LYM PH-CD 4 immature granulocytes 0 % notest ab. Not Available [facility] ([facility]) [address] [facility], [place], [address], 03/22/2025 09:39:56 03/14/20 25 03/14/2025 HELPE R T-LYM PH-CD 4 immature grans (abs) 0.0 x10e3 /uL 0.0-0. 1 Not Available [facility] ([facility]) [address] [facility], [place], [address], 03/22/2025 09:39:56 03/14/20 25 03/15/2025 HELPE R T-LYM PH-CD 4 absolute cd 4 helper 219 /uL 359-15 19 below low normal Not Available [facility] ([facility]) [address] [facility], [place], [address], 03/22/2025 09:39:56 03/14/20 25 03/15/2025 HELPE R T-LYM PH-CD 4 % cd 4 pos. lymph. 19.9 % 30.8-5 8.5 below low normal Not Available [facility] ([facility]) [address] [facility], [place], [address], 03/22/2025 09:39:56 03/14/20 25 03/22/2025 GENOS URE PRIME (R) pdf . Not Available [facility] ([facility]) [address] [facility], [place], [address], 03/22/2025 09:39:57 03/14/20 25 03/22/2025 GENOS URE PRIME (R) HIV genosure prime(R) COMMEN T Adonis gene ampli con adequ ate for seque ncing Not Available [facility] ([facility]) [address] [facility], [place], [address], 03/22/2025 09:39:57 03/14/2003/22/2025 GENOS URE PRIME (R) [...] gravi r Sensi tive Chucho* : None [place] egrav ir [place] egrav ir Sensi tive Chucho* : None [...] T125P , K156N , V201I , V234L TN: L10L/ I, L63P, I72I/ V, V77V/ I, I93L Asses sment of drug susce ptibi lity is based upon detec harry mutat ions and inter prete d using an advan moon propr ietar y algor ithm (vers ion 19). Not Available [facility] ([facility]) [address], [place], [address], 03/22/2025 09:39:57 03/14/20 25 03/22/2025 GENOS URE [...] the total popul ation . - Uses Monog anival's HIV genot yping algor ithm, which is [...] ng this repor t, pleas e call [facility] ann [facility] ce at [phone] betwe en the hours of 7:00a m to 6:30p m EST Monda y throu gh Nandini y or 8:00a m to 5:00p m EST day. GenoS ure PRIme is a DNA seque [...] on such speci mens. This test was jerson weaver and its perfo rmanc e henry cteri stics deter mined by [facility]. It has not been clear ed or appro liss by the Food and Drug Admin istra tion. [employer] is a subsi diary of Labor atory Corpo ratio n of [employer], using the brand [facility]. The resul ts shoul d not be used as the sole crite miguel for patie nt manag ement . This docum ent conta ins priva te and confi denti al healt h infor matio n prote cted by [facility] and bud al law. If you have recei liss this docum ent in error , felicity e call [phone] Not Available [facility] ([facility]) [address] [facility], [place], [address], 03/22/2025 09:39:57 03/14/2003/15/2025 HEPAT ITIS B SURF AB QUANT hepatitis B surf Ab quant <3.5 below low normal Statu s of Immun ity Anti- HBs Level ----- ----- ----- --- ----- ----- ---- Incon siste nt with Immun ity 0.0 - 10.0 Consi stent with Immun ity >10.0 Not Available [facility] ([facility]) [address] [facility], [place], [address], 03/22/2025 09:39:58 03/14/2003/14/2025 RPR, RFX QN RPR/C [...] N/A No labor atory evide nce React rodo of syphi lis. Retes t in 2-4 weeks if recen t expos ure us suspe cted. ----- --- ----- ---- ----- ----- ----- ----- ----- ----- ---- React rodo >/=1: 1 Non Nontr epone mal antib odies React rodo detec harry. Syphi lis unlik stanislaw; biolo gical false posit rodo possi ble. Retes t in 2-4 weeks if recen t expos ure is suspe cted. ----- --- ----- ---- ----- ----- ----- ----- ----- ----- ---- React rodo >/=1: 1 React rodo Trepo nemal and nontr epone mal antib odies detec harry. Consi stent with past or curre nt (ambrosio sánchezial early ) syphi lis. Not Available [facility] ([facility]) [address] [facility], [place], [address], 03/22/2025 09:39:59 03/14/2003/15/2025 RPR, RFX QN RPR/C ONFIR M TP RPR NON REACTI VE nonrea ctive Not Available [facility] ([facility]) [address] [facility], [place], [address], 03/22/2025 09:39:59 03/14/2003/15/2025 HIV AB/P2 4 AG WITH REFLE X HIV Ab/P24 Ag screen PRELIM INARY REACTI VE Pleas e refer to the Final Inter preta tion. Resul ts react rodo by HIV Antig en/An tibod y EIA must be confi rmed by the HIV testi ng [facility] to be consi dered indic ative of a true HIV infec tion. Not Available [facility] ([facility]) [address] [facility], [place], [address], 03/22/2025 09:39:59 03/14/20 25 03/15/2025 HIV 1/2 AB DIFFE RENTI ATION HIV 1 Ab REACTI VE nonrea ctive Not Available [facility] [address], [place], [address], 03/22/2025 09:40:01 03/14/20 25 03/15/2025 HIV 1/2 AB DIFFE RENTI ATION HIV 2 Ab NON REACTI VE nonrea ctive Not Available [facility] [address], [place], [address], 03/22/2025 09:40:01 03/14/20 25 03/15/2025 HIV 1/2 AB DIFFE RENTI ATION interpretati on: HIV-1 POSITI VE abnormal Labor atory evide nce consi stent with HIV-1 infec tion. Not Available [facility] [address], [place], [address], 03/22/2025 09:40:01 04/24/20 25 04/25/2025 COMP. METAB OLIC PANEL (14) glucose 106 mg/dL 70-99 above high normal Not Available [facility] ([facility]) [address] [facility], [place], [address], 04/25/2025 08:23:54 04/24/20 25 04/25/2025 COMP. METAB OLIC PANEL (14) BUN 7 mg/dL 8-27 below low normal Not Available [facility] ([facility]) [address] [facility] [place], [address], 04/25/2025 08:23:54 04/24/20 25 04/25/2025 COMP. METAB OLIC PANEL (14) creatinine 0.51 mg/dL 0.57-1 .00 below low normal Not Available [facility] ([facility]) [address] [place], [address], 04/25/2025 08:23:54 04/24/20 25 04/25/2025 COMP. METAB OLIC PANEL (14) eGFR 105 mL/mi n/1.7 3 >59 Not Available [facility] ([facility]) [address] [facility] [place], [address], 04/25/2025 08:23:54 04/24/20 25 04/25/2025 COMP. METAB OLIC PANEL (14) BUN/creatini ne ratio 14 12-28 Not Available [facility] ([facility]) [address] [facility] [place], [address], 04/25/2025 08:23:54 04/24/20 25 04/25/2025 COMP. METAB OLIC PANEL (14) sodium 135 mmol/ L 134-14 4 Not Available [facility] ([facility]) [address] [facility] [place], [address], 04/25/2025 08:23:54 04/24/20 25 04/25/2025 COMP. METAB OLIC PANEL (14) potassium 4.1 mmol/ L 3.5-5. 2 Not Available [facility] ([facility]) [address] [facility] [place], [address], 04/25/2025 08:23:54 04/24/20 25 04/25/2025 COMP. METAB OLIC PANEL (14) chloride 92 mmol/ L 96-106 below low normal Not Available [facility] ([facility]) [address] [facility] [place], [address], 04/25/2025 08:23:54 04/24/20 25 04/25/2025 COMP. METAB OLIC PANEL (14) carbon dioxide, total 30 mmol/ L 20-29 above high normal Not Available [facility] ([facility]) [address] [facility] [place], [address], 04/25/2025 08:23:54 04/24/20 25 04/25/2025 COMP. METAB OLIC PANEL (14) calcium 9.0 mg/dL 8.7-10 .3 Not Available [facility] ([facility]) [address] [facility] [place], [address], 04/25/2025 08:23:54 04/24/20 25 04/25/2025 COMP. METAB OLIC PANEL (14) protein, total 6.3 g/dL 6.0-8. 5 Not Available [facility] ([facility]) [address] [facility] [place], [address], 04/25/2025 08:23:54 04/24/20 25 04/25/2025 COMP. METAB OLIC PANEL (14) albumin 3.8 g/dL 3.9-4. 9 below low normal Not Available [facility] ([facility]) [address] [facility] [place], [address], 04/25/2025 08:23:54 04/24/20 25 04/25/2025 COMP. METAB OLIC PANEL (14) globulin, total 2.5 g/dL 1.5-4. 5 Not Available [facility] ([facility]) [address] [facility] [place], [address], 04/25/2025 08:23:54 04/24/20 25 04/25/2025 COMP. METAB OLIC PANEL (14) bilirubin, total <0.2 mg/dL 0.0-1. 2 Not Available [facility] ([facility]) [address] [facility] [place], [address], 04/25/2025 08:23:54 04/24/20 25 04/25/2025 COMP. METAB OLIC PANEL (14) alkaline phosphatase 71 IU/L 44-121 Not Available [facility] ([facility]) [address] [place], [address], 04/25/2025 08:23:54 04/24/20 25 04/25/2025 COMP. METAB OLIC PANEL (14) AST (SGOT) 24 IU/L 0-40 Not Available [facility] ([facility]) [address] [place], [address], 04/25/2025 08:23:54 04/24/20 25 04/25/2025 COMP. METAB OLIC PANEL (14) ALT (SGPT) 25 IU/L 0-32 Not Available [facility] ([facility]) [address] [place], [address], 04/25/2025 08:23:54 04/24/20 25 04/25/2025 CBC WITH DIFFE RENTI AL/PL ATELE T WBC 11.2 x10e3 /uL 3.4-10 .8 above high normal Not Available [facility] ([facility]) [address] [place], [address], 04/25/2025 08:23:55 04/24/20 25 04/25/2025 CBC WITH DIFFE RENTI AL/PL ATELE T RBC 4.66 x10e6 /uL 3.77-5 .28 Not Available [facility] ([facility]) [address] [place], [address], 04/25/2025 08:23:55 04/24/20 25 04/25/2025 CBC WITH DIFFE RENTI AL/PL ATELE T hemoglobin 11.8 g/dL 11.1-1 5.9 Not Available [facility] ([facility]) [address] [place], [address], 04/25/2025 08:23:55 04/24/20 25 04/25/2025 CBC WITH DIFFE RENTI AL/PL ATELE T hematocrit 38.4 % 34.0-4 6.6 Not Available [facility] ([facility]) [address] [facility], [place], [address], 04/25/2025 08:23:55 04/24/20 25 04/25/2025 CBC WITH DIFFE RENTI AL/PL ATELE T MCV 82 fL 79-97 Not Available [facility] ([facility]) [address] [place], [address], 04/25/2025 08:23:55 04/24/20 25 04/25/2025 CBC WITH DIFFE RENTI AL/PL ATELE T MCH 25.3 pg 26.6-3 3.0 below low normal Not Available [facility] ([facility]) [address] [place], [address], 04/25/2025 08:23:55 04/24/20 25 04/25/2025 CBC WITH DIFFE RENTI AL/PL ATELE T MCHC 30.7 g/dL 31.5-3 5.7 below low normal Not Available [facility] ([facility]) [address] [place], [address], 04/25/2025 08:23:55 04/24/20 25 04/25/2025 CBC WITH DIFFE RENTI AL/PL ATELE T RDW 14.7 % 11.7-1 5.4 Not Available [facility] ([facility]) [address] [place], [address], 04/25/2025 08:23:55 04/24/20 25 04/25/2025 CBC WITH DIFFE RENTI AL/PL ATELE T platelets 359 x10e3 /uL 150-45 0 Not Available [facility] ([facility]) [address] [place], [address], 04/25/2025 08:23:55 04/24/20 25 04/25/2025 CBC WITH DIFFE RENTI AL/PL ATELE T neutrophils 87 % notest ab. Not Available [facility] ([facility]) [address] [facility], [place], [address], 04/25/2025 08:23:55 04/24/20 25 04/25/2025 CBC WITH DIFFE RENTI AL/PL ATELE T lymphs 9 % notest ab. Not Available [facility] ([facility]) [address] [facility], [place], [address], 04/25/2025 08:23:55 04/24/20 25 04/25/2025 CBC WITH DIFFE RENTI AL/PL ATELE T monocytes 4 % notest ab. Not Available [facility] ([facility]) [address] [facility], [place], [address], 04/25/2025 08:23:55 04/24/20 25 04/25/2025 CBC WITH DIFFE RENTI AL/PL ATELE T eos 0 % notest ab. Not Available [facility] ([facility]) [address] [facility], [place], [address], 04/25/2025 08:23:55 04/24/20 25 04/25/2025 CBC WITH DIFFE RENTI AL/PL ATELE T basos 0 % notest ab. Not Available [facility] ([facility]) [address] [facility], [place], [address], 04/25/2025 08:23:55 04/24/20 25 04/25/2025 CBC WITH DIFFE RENTI AL/PL ATELE T neutrophils (absolute) 9.6 x10e3 /uL 1.4-7. 0 above high normal Not Available [facility] ([facility]) [address] [facility], [place], [address], 04/25/2025 08:23:55 04/24/20 25 04/25/2025 CBC WITH DIFFE RENTI AL/PL ATELE T lymphs (absolute) 1.0 x10e3 /uL 0.7-3. 1 Not Available [facility] ([facility]) [address] [facility], [place], [address], 04/25/2025 08:23:55 04/24/20 25 04/25/2025 CBC WITH DIFFE RENTI AL/PL ATELE T monocytes(ab solute) 0.5 x10e3 /uL 0.1-0. 9 Not Available [facility] ([facility]) [address] [facility], [place], [address], 04/25/2025 08:23:55 04/24/20 25 04/25/2025 CBC WITH DIFFE RENTI AL/PL ATELE T eos (absolute) 0.0 x10e3 /uL 0.0-0. 4 Not Available [facility] ([facility]) [address] [facility], [place], [address], 04/25/2025 08:23:55 04/24/20 25 04/25/2025 CBC WITH DIFFE RENTI AL/PL ATELE T baso (absolute) 0.0 x10e3 /uL 0.0-0. 2 Not Available [facility] ([facility]) [address] [place], [address], 04/25/2025 08:23:55 04/24/20 25 04/25/2025 CBC WITH DIFFE RENTI AL/PL ATELE T immature granulocytes 0 % notest ab. Not Available [facility] ([facility]) [address] [place], [address], 04/25/2025 08:23:55 04/24/20 25 04/25/2025 CBC WITH DIFFE RENTI AL/PL ATELE T immature grans (abs) 0.0 x10e3 /uL 0.0-0. 1 Not Available [facility] ([facility]) [address] [place], [address], 04/25/2025 08:23:55 04/24/20 25 04/25/2025 RNA, REAL TIME PCR (NON- GRAPH ) HIV-1 RNA by PCR 470 copie s/mL The repor table range for this assay is 20 to 10,00 0,000 copie s HIV-1 RNA/m L. Not Available [facility] ([facility]) [address] [facility], [place], [address], 04/25/2025 20:09:45 04/24/20 25 04/25/2025 RNA, REAL TIME PCR (NON- GRAPH ) log10 HIV-1 RNA 2.672 log10 copy/ mL Not Available [facility] ([facility]) [address] [facility], [place], [address], 04/25/2025 20:09:45 05/10/20 25 05/10/2025 urina lysis , dipst ick Leukocytes Negati ve Not Available In-Office Order Internal Use Only DO Not Attach Compendium DO Not Attach Compendium, Do Not Delete/merge, 05/09/2025 17:33:43 05/10/20 25 05/10/2025 urina lysis , dipst ick Nitrite negati ve Not Available In-Office Order Internal Use Only DO Not Attach Compendium DO Not Attach Compendium, Do Not Delete/merge, 05/09/2025 17:33:43 05/10/20 25 05/10/2025 urina lysis , dipst ick Urobilinogen .2 Not Available In-Of fice Order Internal Use Only DO Not Attach Compendium DO Not Attach Compendium, Do Not Delete/merge, 05/09/2025 17:33:43 05/10/20 25 05/10/2025 urina lysis , dipst ick Protein Trace Not Available In-Office Order Internal Use Only DO Not Attach Compendium DO Not Attach Compendium, Do Not Delete/merge, 05/09/2025 17:33:43 05/10/20 25 05/10/2025 urina lysis , dipst ick pH 7.0 Not Available In-Office Order Internal Use Only DO Not Attach Compendium DO Not Attach Compendium, Do Not Delete/merge, [facility] 05/09/2025 17:33:43 05/10/2005/10/2025 urina lysis , dipst ick Blood Hemoly zed: Trace Not Available In-Office Order Internal Use Only DO Not Attach Compendium DO Not Attach Compendium, Do Not Delete/merge, [facility] 05/09/2025 17:33:43 05/10/2005/10/2025 urina lysis , dipst ick Specific [place] 1.005 Not Available In-Off ice Order Internal Use Only DO Not Attach Compendium DO Not Attach Compendium, Do Not Delete/merge, [facility] 05/09/2025 17:33:43 05/10/2005/10/2025 urina lysis , dipst ick Ketone Negati ve Not Available In-Office Order Internal Use Only DO Not Attach Compendium DO Not Attach Compendium, Do Not Delete/merge, [facility] 05/09/2025 17:33:43 05/10/20 25 05/10/2025 urina lysis , dipst ick Bilirubin Negati ve Not Available In-Office Order Internal Use Only DO Not Attach Compendium DO Not Attach Compendium, Do Not Delete/merge, [facility] 05/09/2025 17:33:43 05/10/2005/10/2025 urina lysis , dipst ick Glucose Negati ve Not Available In-Office Order Internal Use Only DO Not Attach Compendium DO Not Attach Compendium, Do Not Delete/merge, [facility] 05/09/2025 17:33:43 05/10/2005/10/2025 urina lysis , dipst ick Appearance Clear Not Available In-Offi ce Order Internal Use Only DO Not Attach Compendium DO Not Attach Compendium, Do Not Delete/merge, [facility] 05/09/2025 17:33:43 05/10/20 25 05/10/2025 urina lysis , dipst ick Color Pale Yellow Not Available In-Office Order Internal Use Only DO Not Attach Compendium DO Not Attach Compendium, Do Not Delete/merge, [facility] 05/09/2025 17:33:43 07/25/20 25 07/26/2025 MICRO SCOPI C EXAMI NATIO N WBC None seen /hpf 0-5 Not Available [facility] ([facility]) [address] [facility], [place], [address], 07/26/2025 07:14:26 07/25/20 25 07/26/2025 MICRO SCOPI C EXAMI NATIO N RBC None seen /hpf 0-2 Not Available [facility] ([facility]) [address] [facility], [place], [address], 07/26/2025 07:14:26 07/25/2007/26/2025 MICRO SCOPI C EXAMI NATIO N epithelial cells (non renal) 0-10 /hpf 0-10 Not Available [facility] ([facility]) [address] [facility], [place], [address], 07/26/2025 07:14:26 07/25/20 25 07/26/2025 MICRO SCOPI C EXAMI NATIO N casts None seen /lpf nonese en Not Available [facility] ([facility]) [address] [facility], [place], [address], 07/26/2025 07:14:26 07/25/2007/26/2025 MICRO SCOPI C EXAMI NATIO N bacteria None seen nonese en/few Not Available [facility] ([facility]) [address] [facility], [place], [address], 07/26/2025 07:14:26 07/25/2007/26/2025 UA/M W/RFL X CULTU RE, ROUTI NE specific gravity 1.015 1.005- 1.030 Not Available [facility] ([facility]) [address] [facility], [place], [address], 07/26/2025 07:14:26 07/25/20 25 07/26/2025 UA/M W/RFL X CULTU RE, ROUTI NE pH 8.0 5.0-7. 5 above high normal Not Available [facility] ([facility]) [address] [place], [address], 07/26/2025 07:14:26 07/25/20 25 07/26/2025 UA/M W/RFL X CULTU RE, ROUTI NE urine-color YELLOW yellow Not Available [facility] ([facility]) [address] [place], [address], 07/26/2025 07:14:26 07/25/2007/26/2025 UA/M W/RFL X CULTU RE, ROUTI NE appearance TURBID clear abnormal Not Available [facility] ([facility]) [address] [place], [address], 07/26/2025 07:14:26 07/25/2007/26/2025 UA/M W/RFL X CULTU RE, ROUTI NE WBC esterase NEGATI VE negati ve Not Available [facility] ([facility]) [address] [place], [address], 07/26/2025 07:14:26 07/25/2007/26/2025 UA/M W/RFL X CULTU RE, ROUTI NE protein TRACE negati ve/tra ce Not Available [facility] ([facility]) [address] [place], [address], 07/26/2025 07:14:26 07/25/2007/26/2025 UA/M W/RFL X CULTU RE, ROUTI NE glucose NEGATI VE negati ve Not Available [facility] ([facility]) [address] [place], [address], 07/26/2025 07:14:26 07/25/20 25 07/26/2025 UA/M W/RFL X CULTU RE, ROUTI NE ketones NEGATI VE negati ve Not Available [facility] ([facility]) [address] [place], [address], 07/26/2025 07:14:26 07/25/2007/26/2025 UA/M W/RFL X CULTU RE, ROUTI NE occult blood NEGATI VE negati ve Not Available [facility] ([facility]) [address] [facility], [place], [address], 07/26/2025 07:14:26 07/25/2007/26/2025 UA/M W/RFL X CULTU RE, ROUTI NE bilirubin NEGATI VE negati ve Not Available [facility] ([facility]) [address] [facility], [place], [address], 07/26/2025 07:14:26 07/25/2007/26/2025 UA/M W/RFL X CULTU RE, ROUTI NE urobilinogen ,semi-qn 1.0 mg/dL 0.2-1. 0 Not Available [facility] ([facility]) [address] [facility], [place], [address], 07/26/2025 07:14:26 07/25/2007/26/2025 UA/M W/RFL X CULTU RE, ROUTI NE nitrite, urine NEGATI VE negati ve Not Available [facility] ([facility]) [address] [facility], [place], [address], 07/26/2025 07:14:26 07/25/2007/26/2025 UA/M W/RFL X CULTU RE, ROUTI NE microscopic examination COMMEN T Micro scopi c follo ws if indic ated. Not Available [facility] ([facility]) [address] [facility], [place], [address], 07/26/2025 07:14:26 07/25/2007/26/2025 UA/M W/RFL X CULTU RE, ROUTI NE microscopic examination SEE BELOW: Micro scopi c was indic ated and was perfo rmed. Not Available [facility] ([facility]) [address] [facility], [place], [address], 07/26/2025 07:14:26 07/25/2007/26/2025 UA/M W/RFL X CULTU RE, ROUTI NE urinalysis reflex COMMEN T This speci men will not refle x to a Urine Cultu re. Not Available [facility] ([facility]) [address] [facility], [place], [address], 07/26/2025 07:14:26 07/25/2007/25/2025 urina lysis , dipst [...] 07/25/2007/25/2025 urina lysis , dipst ick Specific [place] 1.010 Not Available In-Off ice Order Internal Use Only DO Not Attach Compendium DO Not Attach Compendium, Do Not Delete/merge, 07/25/2025 15:37:22 07/25/2007/25/2025 urina lysis , dipst ick Ketone Trace Not Available In-Office Order Internal Use Only DO Not Attach Compendium DO Not Attach Compendium, Do Not Delete/merge, 07/25/2025 15:37:22 07/25/2007/25/2025 urina lysis , dipst ick Bilirubin Negati ve Not Available In-Office Order Internal Use Only DO Not Attach Compendium DO Not Attach Compendium, Do Not Delete/merge, 07/25/2025 15:37:22 07/25/2007/25/2025 urina lysis , dipst ick Glucose Negati ve Not Available In-Office Order Internal Use Only DO Not Attach Compendium DO Not Attach Compendium, Do Not Delete/merge, 07/25/2025 15:37:22 07/25/2007/25/2025 urina lysis , dipst ick Appearance Cloudy Not Available In-Offi ce Order Internal Use Only DO Not Attach Compendium DO Not Attach Compendium, Do Not Delete/merge, 07/25/2025 15:37:22 07/25/2007/25/2025 urina lysis , dipst ick Color Pale Yellow Not Available In-Office Order Internal Use Only DO Not Attach Compendium DO Not Attach Compendium, Do Not Delete/merge, 07/25/2025 15:37:22 08/06/20 25 08/06/2025 Legio brett pneum ophil a 1 Ag, qual immun oassa y, urine legionella pneumophila 1 Ag, qual immunoassay, urine NOT DETECT ED text: not detect ed Not Available Not Available 09/05/2025 10:13:08 08/06/2008/06/2025 Legio brett pneum ophil a 1 Ag, qual immun oassa y, urine this test will not detect infections caused by legionella species other than L. pneumophila serogroup 1. A negative antigen result does not exclude infection with L. pneumophila serogroup 1. culture IS recommended for suspected pneumoniae to detect causative agents other than L. pneumophila serogroup 1 and to recover L. pneumophila serogroup 1 when antigen IS not detected in urine. This test will not detect infect ions caused by Legion france specie s other than L. pneumo phila serogr oup 1. A negati ve antige n result does not exclud e infect ion with L. pneumo phila serogr oup 1. Cultur e is recomm ended for suspec harry pneumo niae to detect causat rodo agents other than L. pneumo phila serogr oup 1 and to recove r L. pneumo phila serogr oup 1 when antige n is not detect ed in urine. Not Available Not Available 10:13:08 08/06/2008/06/2025 Legio brett pneum ophil a 1 Ag, qual immun oassa y, urine lab interpretati on Normal Not Available Not Available 12/2024 10:13:08 08/06/2008/06/2025 strep tococ cus pneum oniae Ag, urine streptococcu s pneumoniae Ag, urine NOT DETECT ED text: not detect ed Not Available Not Available 09/05/2025 10:13:08 08/06/2008/06/2025 strep tococ cus pneum oniae Ag, urine lab interpretati on Normal Not Available Not Available 12/2024 10:13:08 08/06/2008/06/2025 c diff toxin genes , qual, PCR, stool C diff toxin genes, qual, PCR, stool NOT DETECT ED text: not detect ed Not Available Not Available 09/05/2025 10:13:08 08/06/2008/06/2025 c diff toxin genes , qual, PCR, stool this assay IS used to detect toxigenic C. difficile target(B gene) DNA sequences in unformed stool specimens. if toxigenic C. difficile IS not detected, but clinical suspicion IS high please consult id for consultation and potential repeat testing. this test should not BE used A test of cure. This assay is used to detect Toxige gonzález C. diffic ile target (B gene) DNA sequen daniele in unform ed stool specim ens. If toxige gonzález C. diffic ile is not detect ed, but clinic al suspic ion is high please consul t ID for consul tation and potent ial repeat testin g. This test should not be used as a test of cure. Not Available Not Available 10:13:08 08/06/2008/06/2025 c diff toxin genes , qual, PCR, stool lab interpretati on Normal Not Available Not Available 12/2024 10:13:08 08/06/2008/06/2025 CBC w/ auto diff leukocyte count, blood 20.4 K/uL low: 4K/uLh igh: 9.8K/u L high Not Available Not Available 09/05/2025 10:16:30 08/06/2008/06/2025 CBC w/ auto diff RBC count, blood 3.99 text: 3.90 - 4.90 M/uL Not Available Not Available 09/05/2025 10:16:30 08/06/2008/06/2025 CBC w/ auto diff hemoglobin (Hb), blood 10.9 g/dL low: 11.8g/ dLhigh : 14.8g/ dL low Not Available Not Available 09/05/2025 10:16:30 08/06/2008/06/2025 CBC w/ auto diff hematocrit, automated count, blood 34.4 % low: 35.5%h igh: 44% low Not Available Not Available 09/05/2025 10:16:30 08/06/2008/06/2025 CBC w/ auto diff MCV, blood 86.2 fL low: 82fLhi gh: 99fL Not Available Not Available 09/05/2025 10:16:30 08/06/20 25 08/06/2025 CBC w/ auto diff MCH, qn, automated (obs) 27.3 pg low: 27.2pg high: 32.6pg Not Available Not Available 09/05/2025 10:16:30 08/06/20 25 08/06/2025 CBC w/ auto diff MCHC, qn, automated (obs) 31.7 g/dL low: 31.5g/ dLhigh : 35.5g/ dL Not Available Not Available 09/05/2025 10:16:30 08/06/20 25 08/06/2025 CBC w/ auto diff RDW 14.3 % low: 11.5%h igh: 14.5% Not Available Not Available 09/05/2025 10:16:30 08/06/20 25 08/06/2025 CBC w/ auto diff RDW-stdev 45 fL low: 37.1fL high: 48.7fL Not Available Not Available 09/05/2025 10:16:30 08/06/20 25 08/06/2025 CBC w/ auto diff platelets, auto, blood 400 K/uL low: 140K/u Lhigh: 350K/u L high Not Available Not Available 09/05/2025 10:16:30 08/06/20 25 08/06/2025 CBC w/ auto diff platelet mean volume, qn, automated, blood (obs) 9.4 fL low: 9.3fLh igh: 12.4fL Not Available Not Available 09/05/2025 10:16:30 08/06/20 25 08/06/2025 CBC w/ auto diff neutrophils 95 % Not Available Not Av ailable 09/05/2025 10:16:30 08/06/20 25 08/06/2025 CBC w/ auto diff lymphocytes/ 100 leukocytes, automated, blood (obs) 2 % Not Available Not Available 09/05/2025 10:16:30 08/06/20 25 08/06/2025 CBC w/ auto diff monocytes 2 % Not Available Not Avai lable 09/05/2025 10:16:30 08/06/20 25 08/06/2025 CBC w/ auto diff eosinophils 0 % Not Available Not Av ailable 09/05/2025 10:16:30 08/06/20 25 08/06/2025 CBC w/ auto diff basophils 0 % Not Available Not Avai lable 09/05/2025 10:16:30 08/06/20 25 08/06/2025 CBC w/ auto diff immature granulocytes 2 % IG (Damaris ture Granu locyt e) count inclu elsa Metam yeloc ytes, Myelo cytes , and Promy elocy robbie Not Available Not Available 09/05/2025 10:16:30 08/06/2008/06/2025 CBC w/ auto diff neutrophil count, absolute (anc), blood (obs) 19.31 K/uL low: 1.9K/u Lhigh: 7K/uL high Not Available Not Available 09/05/2025 10:16:30 08/06/2008/06/2025 CBC w/ auto diff lymphocytes, quantitative , blood, automated count (obs) 0.33 K/uL low: 0.7K/u Lhigh: 4.5K/u L low Not Available Not Available 09/05/2025 10:16:30 08/06/2008/06/2025 CBC w/ auto diff monocytes, count, automated, blood (obs) 0.39 K/uL low: 0.1K/u Lhigh: 1.3K/u L Not Available Not Available 09/05/2025 10:16:30 08/06/2008/06/2025 CBC w/ auto diff eosinophils, auto, blood, absolute 0.01 K/uL low: 0K/uLh igh: 0.7K/u L Not Available Not Available 09/05/2025 10:16:30 08/06/2008/06/2025 CBC w/ auto diff basophils, quant, auto, blood (obs) 0.02 K/uL low: 0K/uLh igh: 0.2K/u L Not Available Not Available 09/05/2025 10:16:30 08/06/20 25 08/06/2025 CBC w/ auto diff immature granulocytes absolute 0.31 K/uL low: 0K/uLh igh: 0.03K/ uL high Not Available Not Available 09/05/2025 10:16:30 08/06/20 25 08/06/2025 CBC w/ auto diff lab interpretati on Abnorm al Not Available Not Available 10:16:30 08/06/20 25 08/06/2025 CMP, serum or plasm a sodium, serum or plasma 135 mmol/ L low: 136mmo l/Lhig h: 145mmo l/L low Not Available Not Available 09/05/2025 10:16:30 08/06/2008/06/2025 CMP, serum or plasm a potassium, serum or plasma 3.8 mmol/ L low: 3.5mmo l/Lhig h: 5mmol/ L Not Available Not Available 09/05/2025 10:16:30 08/06/2008/06/2025 CMP, serum or plasm a chloride, serum or plasma 95 mmol/ L low: 98mmol /Lhigh : 107mmo l/L low Not Available Not Available 09/05/2025 10:16:30 08/06/2008/06/2025 CMP, serum or plasm a CO2, (carbon dioxide), total, serum or plasma 32 mmol/ L low: 22mmol /Lhigh : 29mmol /L high Not Available Not Available 09/05/2025 10:16:30 08/06/2008/06/2025 CMP, serum or plasm a calcium, serum or plasma 9 mg/dL low: 8.6mg/ dLhigh : 10.2mg /dL Not Available Not Available 09/05/2025 10:16:30 08/06/2008/06/2025 CMP, serum or plasm a BUN (blood urea nitrogen), serum or plasma 8 mg/dL low: 8mg/dL high: 23mg/d L Not Available Not Available 09/05/2025 10:16:30 08/06/2008/06/2025 CMP, serum or plasm a creatinine, serum or plasma 0.36 mg/dL low: 0.51mg /dLhig h: 0.95mg /dL low Not Available Not Available 09/05/2025 10:16:30 08/06/2008/06/2025 CMP, serum or plasm a glucose, qn [mass/volume ], serum or plasma 113 mg/dL low: 74mg/d Lhigh: 99mg/d L high Not Available Not Available 09/05/2025 10:16:30 08/06/2008/06/2025 CMP, serum or plasm a protein, total, serum 6.8 g/dL low: 6.7g/d Lhigh: 8.6g/d L Not Available Not Available 09/05/2025 10:16:30 08/06/2008/06/2025 CMP, serum or plasm a albumin, serum or plasma 3.6 g/dL low: 3.5g/d Lhigh: 5.2g/d L Not Available Not Available 09/05/2025 10:16:30 08/06/2008/06/2025 CMP, serum or plasm a bilirubin, total, serum or plasma 0.2 mg/dL low: 0mg/dL high: 1.1mg/ dL Not Available Not Available 09/05/2025 10:16:30 08/06/2008/06/2025 CMP, serum or plasm a alkaline phosphatase, serum or plasma 158 U/L low: 35U/Lh igh: 104U/L high Not Available Not Available 09/05/2025 10:16:30 08/06/2008/06/2025 CMP, serum or plasm a AST/SGOT (aspartate aminotransfe rase), serum or plasma 29 U/L high: 33U/L Not Available Not Available 09/05/2025 10:16:30 08/06/2008/06/2025 CMP, serum or plasm a alanine aminotransfe rase, qn, blood (obs) 18 U/L high: 34U/L Not Available Not Available 09/05/2025 10:16:30 08/06/2008/06/2025 CMP, serum or plasm a glomerular filtration rate/1.73 sq M predicted, qn, creatinine based formula (CKD-epi 2020), serum or plasma or blood text: >=60 mL/min /1.73 sq meter eGFR calcu lated with 2020 CKD-E PI equat ion. Veget mai diet, extre kamaljit high or low muscl e mass, and pregn rose may affec t resul ts. Cysta tin C with Glome rular Filtr ation Rate is a suita ble alter nativ e for these patie nts. Not Available Not Available 09/05/2025 10:16:30 08/06/2008/06/2025 CMP, serum or plasm a anion gap, serum or plasma 8 mmol/ L low: 8mmol/ Lhigh: 16mmol /L Not Available Not Available 09/05/2025 10:16:30 08/06/2008/06/2025 CMP, serum or plasm a samples containing indocyanine green cause interference s on total and/or direct bilirubin and must not BE measured. Sample s contai rosa m indocy anine green cause interf erence s on Total and/or Direct Biliru bin and must not be measur ed. Not Available Not Available 10:16:30 08/06/2008/06/2025 CMP, serum or plasm a lab interpretati on Abnorm al Not Available Not Available 10:16:30 08/06/2008/13/2025 cultu re, blood culture, bacterial No growth Not Available Not Available 10:13:08 08/06/2008/13/2025 cultu re, blood lab interpretati on Normal Not Available Not Available 12/2024 10:13:08 08/06/2008/08/2025 T-lym phocy te panel , blood cd3 percentage, blood 61 % low: 57%hig h: 85% Not Available Not Available 09/05/2025 10:13:08 08/06/2008/08/2025 T-lym phocy te panel , blood cd3 cells, qn, blood 221 text: 840 - 3060 cells/ uL low Not Available Not Available 09/05/2025 10:13:08 08/06/20 25 08/08/2025 T-lym phocy te panel , blood cd3 + cd4 cells, percentage, blood (obs) 13 % low: 30%hig h: 61% low Not Available Not Available 09/05/2025 10:13:08 08/06/2008/08/2025 T-lym phocy te panel , blood cd3 + cd4 + cells, qn, blood 48 text: 490 - 1740 cells/ uL low Not Available Not Available 09/05/2025 10:13:08 08/06/20 25 08/08/2025 T-lym phocy te panel , blood cd3 +cd8 cells, percentage, blood (obs) 48 % low: 12%hig h: 42% high Not Available Not Available 09/05/2025 10:13:08 08/06/20 25 08/08/2025 T-lym phocy te panel , blood cd3 + cd8 cells, count, blood 173 text: 180 - 1170 cells/ uL low Not Available Not Available 09/05/2025 10:13:08 08/06/2008/08/2025 T-lym phocy te panel , blood cd4/cd8, ratio, blood 0.28 low: 0.86hi gh: 5 low Not Available Not Available 09/05/2025 10:13:08 08/06/2008/08/2025 T-lym phocy te panel , blood lymphocytes, quantitative , blood, automated count (obs) 360 text: 850 - 3900 cells/ uL low Not Available Not Available 09/05/2025 10:13:08 08/06/2008/08/2025 T-lym phocy te panel , blood performing organization information: site id: cb [facility] address: [address] [place], [place] [id number] director: gustavo Clark [facility] Inform ation: Site ID: [id number] Addres s: [id number], [place] [id number] Direct or: Aisha Montero Not Available Not Available 10:13:08 08/06/2008/08/2025 T-lym phocy te panel , blood lab interpretati on Abnorm al Not Available Not Available 10:13:08 08/07/2008/07/2025 CBC w/ auto diff leukocyte count, blood 16.7 K/uL low: 4K/uLh igh: 9.8K/u L high Not Available Not Available 09/05/2025 10:16:30 08/07/20 25 08/07/2025 CBC w/ auto diff RBC count, blood 3.36 text: 3.90 - 4.90 M/uL low Not Available Not Available 09/05/2025 10:16:30 08/07/20 25 08/07/2025 CBC w/ auto diff hemoglobin (Hb), blood 9.1 g/dL low: 11.8g/ dLhigh : 14.8g/ dL low Not Available Not Available 09/05/2025 10:16:30 08/07/20 25 08/07/2025 CBC w/ auto diff hematocrit, automated count, blood 29 % low: 35.5%h igh: 44% low Not Available Not Available 09/05/2025 10:16:30 08/07/20 25 08/07/2025 CBC w/ auto diff MCV, blood 86.3 fL low: 82fLhi gh: 99fL Not Available Not Available 09/05/2025 10:16:30 08/07/20 25 08/07/2025 CBC w/ auto diff MCH, qn, automated (obs) 27.1 pg low: 27.2pg high: 32.6pg low Not Available Not Available 09/05/2025 10:16:30 08/07/20 25 08/07/2025 CBC w/ auto diff MCHC, qn, automated (obs) 31.4 g/dL low: 31.5g/ dLhigh : 35.5g/ dL low Not Available Not Available 09/05/2025 10:16:30 08/07/20 25 08/07/2025 CBC w/ auto diff RDW 14.4 % low: 11.5%h igh: 14.5% Not Available Not Available 09/05/2025 10:16:30 08/07/20 25 08/07/2025 CBC w/ auto diff RDW-stdev 45.1 fL low: 37.1fL high: 48.7fL Not Available Not Available 09/05/2025 10:16:30 08/07/20 25 08/07/2025 CBC w/ auto diff platelets, auto, blood 354 K/uL low: 140K/u Lhigh: 350K/u L high Not Available Not Available 09/05/2025 10:16:30 08/07/20 25 08/07/2025 CBC w/ auto diff platelet mean volume, qn, automated, blood (obs) 9.9 fL low: 9.3fLh igh: 12.4fL Not Available Not Available 09/05/2025 10:16:30 08/07/20 25 08/07/2025 CBC w/ auto diff neutrophils 95 % Not Available Not Av ailable 09/05/2025 10:16:30 08/07/20 25 08/07/2025 CBC w/ auto diff lymphocytes/ 100 leukocytes, automated, blood (obs) 2 % Not Available Not Available 09/05/2025 10:16:30 08/07/20 25 08/07/2025 CBC w/ auto diff monocytes 2 % Not Available Not Avai lable 09/05/2025 10:16:30 08/07/20 25 08/07/2025 CBC w/ auto diff eosinophils 0 % Not Available Not Av ailable 09/05/2025 10:16:30 08/07/20 25 08/07/2025 CBC w/ auto diff basophils 0 % Not Available Not Avai lable 09/05/2025 10:16:30 08/07/20 25 08/07/2025 CBC w/ auto diff immature granulocytes 1 % IG (Damaris ture Granu locyt e) count inclu elsa Metam yeloc ytes, Myelo cytes , and Promy elocy robbie Not Available Not Available 09/05/2025 10:16:30 08/07/20 25 08/07/2025 CBC w/ auto diff neutrophil count, absolute (anc), blood (obs) 15.79 K/uL low: 1.9K/u Lhigh: 7K/uL high Not Available Not Available 09/05/2025 10:16:30 08/07/20 25 08/07/2025 CBC w/ auto diff lymphocytes, quantitative , blood, automated count (obs) 0.37 K/uL low: 0.7K/u Lhigh: 4.5K/u L low Not Available Not Available 09/05/2025 10:16:30 08/07/20 25 08/07/2025 CBC w/ auto diff monocytes, count, automated, blood (obs) 0.31 K/uL low: 0.1K/u Lhigh: 1.3K/u L Not Available Not Available 09/05/2025 10:16:30 08/07/20 25 08/07/2025 CBC w/ auto diff eosinophils, auto, blood, absolute 0 K/uL low: 0K/uLh igh: 0.7K/u L Not Available Not Available 09/05/2025 10:16:30 08/07/20 25 08/07/2025 CBC w/ auto diff basophils, quant, auto, blood (obs) 0.02 K/uL low: 0K/uLh igh: 0.2K/u L Not Available Not Available 09/05/2025 10:16:30 08/07/20 25 08/07/2025 CBC w/ auto diff immature granulocytes absolute 0.22 K/uL low: 0K/uLh igh: 0.03K/ uL high Not Available Not Available 09/05/2025 10:16:30 08/07/20 25 08/07/2025 CBC w/ auto diff lab interpretati on Abnorm al Not Available Not Available 10:16:30 08/08/20 25 08/10/2025 cultu re, respi rator y culture, bacterial No pathog ens isolat ed. Normal respir atory nga reduce d. Not Available Not Available 10:13:09 08/08/20 25 08/10/2025 cultu re, respi rator y gram stain Non diagno stic patter n Not Available Not Available 10:13:09 08/08/20 25 08/10/2025 cultu re, respi rator y gram stain 2+ (Few) Polymo rphonu clear WBC Not Available Not Available 10:13:09 08/08/20 25 09/04/2025 fungu s, cultu re, unspe cifie d speci men culture, bacterial CANDID A ALBICA NS abnormal Not Available Not Available 10:13:08 08/08/20 25 09/04/2025 fungu s, cultu re, unspe cifie d speci men lab interpretati on Abnorm al Not Available Not Available 10:13:08 08/08/20 25 08/08/2025 CBC w/ manua l diff leukocyte count, blood 10.7 K/uL low: 4K/uLh igh: 9.8K/u L high Not Available Not Available 09/05/2025 10:16:30 08/08/20 25 08/08/2025 CBC w/ manua l diff RBC count, blood 3.33 text: 3.90 - 4.90 M/uL low Not Available Not Available 09/05/2025 10:16:30 08/08/20 25 08/08/2025 CBC w/ manua l diff hemoglobin (Hb), blood 9 g/dL low: 11.8g/ dLhigh : 14.8g/ dL low Not Available Not Available 09/05/2025 10:16:30 08/08/20 25 08/08/2025 CBC w/ manua l diff hematocrit, automated count, blood 28.6 % low: 35.5%h igh: 44% low Not Available Not Available 09/05/2025 10:16:30 08/08/20 25 08/08/2025 CBC w/ manua l diff MCV, blood 85.9 fL low: 82fLhi gh: 99fL Not Available Not Available 09/05/2025 10:16:30 08/08/20 25 08/08/2025 CBC w/ manua l diff MCH, qn, automated (obs) 27 pg low: 27.2pg high: 32.6pg low Not Available Not Available 09/05/2025 10:16:30 08/08/20 25 08/08/2025 CBC w/ manua l diff MCHC, qn, automated (obs) 31.5 g/dL low: 31.5g/ dLhigh : 35.5g/ dL Not Available Not Available 09/05/2025 10:16:30 08/08/20 25 08/08/2025 CBC w/ manua l diff RDW 14.4 % low: 11.5%h igh: 14.5% Not Available Not Available 09/05/2025 10:16:30 08/08/20 25 08/08/2025 CBC w/ manua l diff RDW-stdev 44.6 fL low: 37.1fL high: 48.7fL Not Available Not Available 09/05/2025 10:16:30 08/08/20 25 08/08/2025 CBC w/ manua l diff platelets, auto, blood 364 K/uL low: 140K/u Lhigh: 350K/u L high Not Available Not Available 09/05/2025 10:16:30 08/08/20 25 08/08/2025 CBC w/ manua l diff platelet mean volume, qn, automated, blood (obs) 9.3 fL low: 9.3fLh igh: 12.4fL Not Available Not Available 09/05/2025 10:16:30 08/08/2008/08/2025 CBC w/ manua l diff lab interpretati on Abnorm al Not Available Not Available 10:16:30 08/08/2008/09/2025 HIV-1 RNA, quant itati ve, PCR, serum or plasm a HIV-1 RNA, quantitative , PCR, serum or plasma NOT DETECT ED text: not detect ed copies /mL Not Available Not Available 09/05/2025 10:13:08 08/08/2008/09/2025 HIV-1 RNA, quant itati ve, PCR, serum or plasm a HIV-1 RNA, quantitative , plasma NOT DETECT ED text: not detect ed log copies /mL This test was perfo rmed using Real- Time Polym erase Chain React ion. Repor table Range : 20 copie s/mL to 10,00 0,000 copie s/mL (1.30 log copie s/mL to 7.00 log copie s/mL) . FASTI NG: UNKNO WN Not Available Not Available 09/05/2025 10:13:08 08/08/2008/09/2025 HIV-1 RNA, quant itati ve, PCR, serum or plasm a performing organization information: site id: ri name: [facility] address: [address] [place] [address] director: bhavna chandler Inform ation: Site ID: [place] Name: [facility] Addres s: [id number] [place] [address] Direct or: Dipak Garvin MD Not Available Not Available 10:13:08 08/10/2008/10/2025 CBC w/ auto diff leukocyte count, blood 7.2 K/uL low: 4K/uLh igh: 9.8K/u L Not Available Not Available 09/05/2025 10:16:31 08/10/20 25 08/10/2025 CBC w/ auto diff RBC count, blood 3.38 text: 3.90 - 4.90 M/uL low Not Available Not Available 09/05/2025 10:16:31 08/10/20 25 08/10/2025 CBC w/ auto diff hemoglobin (Hb), blood 9 g/dL low: 11.8g/ dLhigh : 14.8g/ dL low Not Available Not Available 09/05/2025 10:16:31 08/10/20 25 08/10/2025 CBC w/ auto diff hematocrit, automated count, blood 29.9 % low: 35.5%h igh: 44% low Not Available Not Available 09/05/2025 10:16:31 08/10/20 25 08/10/2025 CBC w/ auto diff MCV, blood 88.5 fL low: 82fLhi gh: 99fL Not Available Not Available 09/05/2025 10:16:31 08/10/20 25 08/10/2025 CBC w/ auto diff MCH, qn, automated (obs) 26.6 pg low: 27.2pg high: 32.6pg low Not Available Not Available 09/05/2025 10:16:31 08/10/20 25 08/10/2025 CBC w/ auto diff MCHC, qn, automated (obs) 30.1 g/dL low: 31.5g/ dLhigh : 35.5g/ dL low Not Available Not Available 09/05/2025 10:16:31 08/10/20 25 08/10/2025 CBC w/ auto diff RDW 14.3 % low: 11.5%h igh: 14.5% Not Available Not Available 09/05/2025 10:16:31 08/10/20 25 08/10/2025 CBC w/ auto diff RDW-stdev 45.4 fL low: 37.1fL high: 48.7fL Not Available Not Available 09/05/2025 10:16:31 08/10/20 25 08/10/2025 CBC w/ auto diff platelets, auto, blood 336 K/uL low: 140K/u Lhigh: 350K/u L Not Available Not Available 09/05/2025 10:16:31 08/10/20 25 08/10/2025 CBC w/ auto diff platelet mean volume, qn, automated, blood (obs) 9.7 fL low: 9.3fLh igh: 12.4fL Not Available Not Available 09/05/2025 10:16:31 08/10/20 25 08/10/2025 CBC w/ auto diff neutrophils 93 % Not Available Not Av ailable 09/05/2025 10:16:31 08/10/20 25 08/10/2025 CBC w/ auto diff lymphocytes/ 100 leukocytes, automated, blood (obs) 2 % Not Available Not Available 09/05/2025 10:16:31 08/10/20 25 08/10/2025 CBC w/ auto diff monocytes 4 % Not Available Not Avai lable 09/05/2025 10:16:31 08/10/20 25 08/10/2025 CBC w/ auto diff eosinophils 0 % Not Available Not Av ailable 09/05/2025 10:16:31 08/10/20 25 08/10/2025 CBC w/ auto diff basophils 0 % Not Available Not Avai lable 09/05/2025 10:16:31 08/10/20 25 08/10/2025 CBC w/ auto diff immature granulocytes 1 % IG (Damaris ture Granu locyt e) count inclu elsa Metam yeloc ytes, Myelo cytes , and Promy elocy robbie Not Available Not Available 09/05/2025 10:16:31 08/10/20 25 08/10/2025 CBC w/ auto diff neutrophil count, absolute (anc), blood (obs) 6.7 K/uL low: 1.9K/u Lhigh: 7K/uL Not Available Not Available 09/05/2025 10:16:31 08/10/20 25 08/10/2025 CBC w/ auto diff lymphocytes, quantitative , blood, automated count (obs) 0.15 K/uL low: 0.7K/u Lhigh: 4.5K/u L low Not Available Not Available 09/05/2025 10:16:31 08/10/20 25 08/10/2025 CBC w/ auto diff monocytes, count, automated, blood (obs) 0.31 K/uL low: 0.1K/u Lhigh: 1.3K/u L Not Available Not Available 09/05/2025 10:16:31 08/10/20 25 08/10/2025 CBC w/ auto diff eosinophils, auto, blood, absolute 0.01 K/uL low: 0K/uLh igh: 0.7K/u L Not Available Not Available 09/05/2025 10:16:31 08/10/2008/10/2025 CBC w/ auto diff basophils, quant, auto, blood (obs) 0.01 K/uL low: 0K/uLh igh: 0.2K/u L Not Available Not Available 09/05/2025 10:16:31 08/10/2008/10/2025 CBC w/ auto diff immature granulocytes absolute 0.05 K/uL low: 0K/uLh igh: 0.03K/ uL high Not Available Not Available 09/05/2025 10:16:31 08/10/2008/10/2025 CBC w/ auto diff lab interpretati on Abnorm al Not Available Not Available 10:16:31 08/10/2008/10/2025 BMP, serum or plasm a sodium, serum or plasma 128 mmol/ L low: 136mmo l/Lhig h: 145mmo l/L low Not Available Not Available 09/05/2025 10:16:31 08/10/2008/10/2025 BMP, serum or plasm a potassium, serum or plasma Test canno t be perfo rmed. Sampl e hemol ysis inter feren ce above limit s. Redra w if indic ated. Appro liss to repor t resul ts excep t K+ (due to speci men hemol ysis) per Delmis Miller RN at 4:03 PM on 2024. Not Available Not Available 09/05/2025 10:16:31 08/10/2008/10/2025 BMP, serum or plasm a chloride, serum or plasma 92 mmol/ L low: 98mmol /Lhigh : 107mmo l/L low Not Available Not Available 09/05/2025 10:16:31 08/10/20 25 08/10/2025 BMP, serum or plasm a CO2, (carbon dioxide), total, serum or plasma 29 mmol/ L low: 22mmol /Lhigh : 29mmol /L Not Available Not Available 09/05/2025 10:16:31 08/10/20 25 08/10/2025 BMP, serum or plasm a calcium, serum or plasma 7.9 mg/dL low: 8.6mg/ dLhigh : 10.2mg /dL low Not Available Not Available 09/05/2025 10:16:31 08/10/2008/10/2025 BMP, serum or plasm a BUN (blood urea nitrogen), serum or plasma 17 mg/dL low: 8mg/dL high: 23mg/d L Not Available Not Available 09/05/2025 10:16:31 08/10/2008/10/2025 BMP, serum or plasm a creatinine, serum or plasma 0.32 mg/dL low: 0.51mg /dLhig h: 0.95mg /dL low Not Available Not Available 09/05/2025 10:16:31 08/10/2008/10/2025 BMP, serum or plasm a glucose, qn [mass/volume ], serum or plasma 225 mg/dL low: 74mg/d Lhigh: 99mg/d L high Not Available Not Available 09/05/2025 10:16:31 08/10/2008/10/2025 BMP, serum or plasm a glomerular filtration rate/1.73 sq M predicted, qn, creatinine based formula (CKD-epi 2020), serum or plasma or blood text: >=60 mL/min /1.73 sq meter eGFR calcu lated with 2020 CKD-E PI equat ion. Veget mai diet, extre kamaljit high or low muscl e mass, and pregn rose may affec t resul ts. Cysta tin C with Glome rular Filtr ation Rate is a suita ble alter nativ e for these patie nts. Not Available Not Available 09/05/2025 10:16:31 08/10/2008/10/2025 BMP, serum or plasm a anion gap, serum or plasma 7 mmol/ L low: 8mmol/ Lhigh: 16mmol /L low Not Available Not Available 09/05/2025 10:16:31 08/10/20 25 08/10/2025 BMP, serum or plasm a lab interpretati on Abnorm al Not Available Not Available 10:16:31 08/11/2008/11/2025 CBC w/ auto diff leukocyte count, blood 9.1 K/uL low: 4K/uLh igh: 9.8K/u L Not Available Not Available 09/05/2025 10:16:31 08/11/20 25 08/11/2025 CBC w/ auto diff RBC count, blood 3.68 text: 3.90 - 4.90 M/uL low Not Available Not Available 09/05/2025 10:16:31 08/11/20 25 08/11/2025 CBC w/ auto diff hemoglobin (Hb), blood 9.7 g/dL low: 11.8g/ dLhigh : 14.8g/ dL low Not Available Not Available 09/05/2025 10:16:31 08/11/20 25 08/11/2025 CBC w/ auto diff hematocrit, automated count, blood 32.6 % low: 35.5%h igh: 44% low Not Available Not Available 09/05/2025 10:16:31 08/11/20 25 08/11/2025 CBC w/ auto diff MCV, blood 88.6 fL low: 82fLhi gh: 99fL Not Available Not Available 09/05/2025 10:16:31 08/11/20 25 08/11/2025 CBC w/ auto diff MCH, qn, automated (obs) 26.4 pg low: 27.2pg high: 32.6pg low Not Available Not Available 09/05/2025 10:16:31 08/11/20 25 08/11/2025 CBC w/ auto diff MCHC, qn, automated (obs) 29.8 g/dL low: 31.5g/ dLhigh : 35.5g/ dL low Not Available Not Available 09/05/2025 10:16:31 08/11/20 25 08/11/2025 CBC w/ auto diff RDW 14.2 % low: 11.5%h igh: 14.5% Not Available Not Available 09/05/2025 10:16:31 08/11/20 25 08/11/2025 CBC w/ auto diff RDW-stdev 45.2 fL low: 37.1fL high: 48.7fL Not Available Not Available 09/05/2025 10:16:31 08/11/20 25 08/11/2025 CBC w/ auto diff platelets, auto, blood 351 K/uL low: 140K/u Lhigh: 350K/u L high Not Available Not Available 09/05/2025 10:16:31 08/11/2008/11/2025 CBC w/ auto diff platelet mean volume, qn, automated, blood (obs) 9.5 fL low: 9.3fLh igh: 12.4fL Not Available Not Available 09/05/2025 10:16:31 08/11/20 25 08/11/2025 CBC w/ auto diff neutrophils 82 % Not Available Not Av ailable 09/05/2025 10:16:31 08/11/20 25 08/11/2025 CBC w/ auto diff lymphocytes/ 100 leukocytes, automated, blood (obs) 8 % Not Available Not Available 09/05/2025 10:16:31 08/11/20 25 08/11/2025 CBC w/ auto diff monocytes 9 % Not Available Not Avai lable 09/05/2025 10:16:31 08/11/20 25 08/11/2025 CBC w/ auto diff eosinophils 0 % Not Available Not Av ailable 09/05/2025 10:16:31 08/11/20 25 08/11/2025 CBC w/ auto diff basophils 0 % Not Available Not Avai lable 09/05/2025 10:16:31 08/11/20 25 08/11/2025 CBC w/ auto diff immature granulocytes 1 % IG (Damaris ture Granu locyt e) count inclu elsa Metam yeloc ytes, Myelo cytes , and Promy elocy robbie Not Available Not Available 09/05/2025 10:16:31 08/11/20 25 08/11/2025 CBC w/ auto diff neutrophil count, absolute (anc), blood (obs) 7.51 K/uL low: 1.9K/u Lhigh: 7K/uL high Not Available Not Available 09/05/2025 10:16:31 08/11/20 25 08/11/2025 CBC w/ auto diff lymphocytes, quantitative , blood, automated count (obs) 0.71 K/uL low: 0.7K/u Lhigh: 4.5K/u L Not Available Not Available 09/05/2025 10:16:31 08/11/2008/11/2025 CBC w/ auto diff monocytes, count, automated, blood (obs) 0.78 K/uL low: 0.1K/u Lhigh: 1.3K/u L Not Available Not Available 09/05/2025 10:16:31 08/11/20 25 08/11/2025 CBC w/ auto diff eosinophils, auto, blood, absolute 0 K/uL low: 0K/uLh igh: 0.7K/u L Not Available Not Available 09/05/2025 10:16:31 08/11/20 25 08/11/2025 CBC w/ auto diff basophils, quant, auto, blood (obs) 0.01 K/uL low: 0K/uLh igh: 0.2K/u L Not Available Not Available 09/05/2025 10:16:31 08/11/20 25 08/11/2025 CBC w/ auto diff immature granulocytes absolute 0.1 K/uL low: 0K/uLh igh: 0.03K/ uL high Not Available Not Available 09/05/2025 10:16:31 08/11/20 25 08/11/2025 CBC w/ auto diff lab interpretati on Abnorm al Not Available Not Available 10:16:31 08/12/2008/12/2025 BMP, serum or plasm a sodium, serum or plasma 129 mmol/ L low: 136mmo l/Lhig h: 145mmo l/L low Not Available Not Available 09/05/2025 10:16:31 08/12/20 25 08/12/2025 BMP, serum or plasm a potassium, serum or plasma 4.5 mmol/ L low: 3.5mmo l/Lhig h: 5mmol/ L Not Available Not Available 09/05/2025 10:16:31 08/12/20 25 08/12/2025 BMP, serum or plasm a chloride, serum or plasma 90 mmol/ L low: 98mmol /Lhigh : 107mmo l/L low Not Available Not Available 09/05/2025 10:16:31 08/12/20 25 08/12/2025 BMP, serum or plasm a CO2, (carbon dioxide), total, serum or plasma 33 mmol/ L low: 22mmol /Lhigh : 29mmol /L high Not Available Not Available 09/05/2025 10:16:31 08/12/20 25 08/12/2025 BMP, serum or plasm a calcium, serum or plasma 8.3 mg/dL low: 8.6mg/ dLhigh : 10.2mg /dL low Not Available Not Available 09/05/2025 10:16:31 08/12/20 25 08/12/2025 BMP, serum or plasm a BUN (blood urea nitrogen), serum or plasma 13 mg/dL low: 8mg/dL high: 23mg/d L Not Available Not Available 09/05/2025 10:16:31 08/12/20 25 08/12/2025 BMP, serum or plasm a creatinine, serum or plasma 0.32 mg/dL low: 0.51mg /dLhig h: 0.95mg /dL low Not Available Not Available 09/05/2025 10:16:31 08/12/20 25 08/12/2025 BMP, serum or plasm a glucose, qn [mass/volume ], serum or plasma 108 mg/dL low: 74mg/d Lhigh: 99mg/d L high Not Available Not Available 09/05/2025 10:16:31 08/12/20 25 08/12/2025 BMP, serum or plasm a glomerular filtration rate/1.73 sq M predicted, qn, creatinine based formula (CKD-epi 2020), serum or plasma or blood text: >=60 mL/min /1.73 sq meter eGFR calcu lated with 2020 CKD-E PI equat ion. Veget mai diet, extre kamaljit high or low muscl e mass, and pregn rose may affec t resul ts. Cysta tin C with Glome rular Filtr ation Rate is a suita ble alter nativ e for these patie nts. Not Available Not Available 09/05/2025 10:16:31 08/12/20 25 08/12/2025 BMP, serum or plasm a anion gap, serum or plasma 6 mmol/ L low: 8mmol/ Lhigh: 16mmol /L low Not Available Not Available 09/05/2025 10:16:31 08/12/20 25 08/12/2025 BMP, serum or plasm a lab interpretati on Abnorm al Not Available Not Available 10:16:31 08/14/20 25 08/14/2025 BMP, serum or plasm a sodium, serum or plasma 132 mmol/ L low: 136mmo l/Lhig h: 145mmo l/L low Not Available Not Available 09/05/2025 10:16:31 08/14/20 25 08/14/2025 BMP, serum or plasm a potassium, serum or plasma 4.2 mmol/ L low: 3.5mmo l/Lhig h: 5mmol/ L Not Available Not Available 09/05/2025 10:16:31 08/14/20 25 08/14/2025 BMP, serum or plasm a chloride, serum or plasma 93 mmol/ L low: 98mmol /Lhigh : 107mmo l/L low Not Available Not Available 09/05/2025 10:16:31 08/14/20 25 08/14/2025 BMP, serum or plasm a CO2, (carbon dioxide), total, serum or plasma 30 mmol/ L low: 22mmol /Lhigh : 29mmol /L high Not Available Not Available 09/05/2025 10:16:31 08/14/20 25 08/14/2025 BMP, serum or plasm a calcium, serum or plasma 8.2 mg/dL low: 8.6mg/ dLhigh : 10.2mg /dL low Not Available Not Available 09/05/2025 10:16:31 08/14/20 25 08/14/2025 BMP, serum or plasm a BUN (blood urea nitrogen), serum or plasma 13 mg/dL low: 8mg/dL high: 23mg/d L Not Available Not Available 09/05/2025 10:16:31 08/14/20 25 08/14/2025 BMP, serum or plasm a creatinine, serum or plasma 0.38 mg/dL low: 0.51mg /dLhig h: 0.95mg /dL low Not Available Not Available 09/05/2025 10:16:31 08/14/20 25 08/14/2025 BMP, serum or plasm a glucose, qn [mass/volume ], serum or plasma 143 mg/dL low: 74mg/d Lhigh: 99mg/d L high Not Available Not Available 09/05/2025 10:16:31 08/14/20 25 08/14/2025 BMP, serum or plasm a glomerular filtration rate/1.73 sq M predicted, qn, creatinine based formula (CKD-epi 2020), serum or plasma or blood text: >=60 mL/min /1.73 sq meter eGFR calcu lated with 2020 CKD-E PI equat ion. Veget mai diet, extre kamaljit high or low muscl e mass, and pregn rose may affec t resul ts. Cysta tin C with Glome rular Filtr ation Rate is a suita ble alter nativ e for these patie nts. Not Available Not Available 09/05/2025 10:16:31 08/14/20 25 08/14/2025 BMP, serum or plasm a anion gap, serum or plasma 9 mmol/ L low: 8mmol/ Lhigh: 16mmol /L Not Available Not Available 09/05/2025 10:16:31 08/14/20 25 08/14/2025 BMP, serum or plasm a lab interpretati on Abnorm al Not Available Not Available 10:16:31 08/14/20 25 08/14/2025 CBC leukocyte count, blood 9.5 K/uL low: 4K/uLh igh: 9.8K/u L Not Available Not Available 09/05/2025 10:13:08 08/14/20 25 08/14/2025 CBC RBC count, blood 3.64 text: 3.90 - 4.90 M/uL low Not Available Not Available 09/05/2025 10:13:08 08/14/20 25 08/14/2025 CBC hemoglobin (Hb), blood 9.7 g/dL low: 11.8g/ dLhigh : 14.8g/ dL low Not Available Not Available 09/05/2025 10:13:08 08/14/20 25 08/14/2025 CBC hematocrit, automated count, blood 30.6 % low: 35.5%h igh: 44% low Not Available Not Available 09/05/2025 10:13:08 08/14/20 25 08/14/2025 CBC MCV, blood 84.1 fL low: 82fLhi gh: 99fL Not Available Not Available 09/05/2025 10:13:08 08/14/2008/14/2025 CBC MCH, qn, automated (obs) 26.6 pg low: 27.2pg high: 32.6pg low Not Available Not Available 09/05/2025 10:13:08 08/14/20 25 08/14/2025 CBC MCHC, qn, automated (obs) 31.7 g/dL low: 31.5g/ dLhigh : 35.5g/ dL Not Available Not Available 09/05/2025 10:13:08 08/14/2008/14/2025 CBC platelets, auto, blood 368 K/uL low: 140K/u Lhigh: 350K/u L high Not Available Not Available 09/05/2025 10:13:08 08/14/2008/14/2025 CBC platelet mean volume, qn, automated, blood (obs) 9.5 fL low: 9.3fLh igh: 12.4fL Not Available Not Available 09/05/2025 10:13:08 08/14/2008/14/2025 CBC RDW 14.6 % low: 11.5%h igh: 14.5% high Not Available Not Available 09/05/2025 10:13:08 08/14/2008/14/2025 CBC RDW-stdev 44.6 fL low: 37.1fL high: 48.7fL Not Available Not Available 09/05/2025 10:13:08 08/14/20 25 08/14/2025 CBC lab interpretati on Abnorm al Not Available Not Available 10:13:08 08/21/2008/21/2025 CMP, serum or plasm a sodium, serum or plasma 133 mmol/ L low: 136mmo l/Lhig h: 145mmo l/L low Not Available Not Available 09/05/2025 10:13:32 08/21/20 25 08/21/2025 CMP, serum or plasm a potassium, serum or plasma 4.7 mmol/ L low: 3.5mmo l/Lhig h: 5mmol/ L Not Available Not Available 09/05/2025 10:13:32 08/21/20 25 08/21/2025 CMP, serum or plasm a chloride, serum or plasma 93 mmol/ L low: 98mmol /Lhigh : 107mmo l/L low Not Available Not Available 09/05/2025 10:13:32 08/21/2008/21/2025 CMP, serum or plasm a CO2, (carbon dioxide), total, serum or plasma 31 mmol/ L low: 22mmol /Lhigh : 29mmol /L high Not Available Not Available 09/05/2025 10:13:32 08/21/2008/21/2025 CMP, serum or plasm a calcium, serum or plasma 8.6 mg/dL low: 8.6mg/ dLhigh : 10.2mg /dL Not Available Not Available 09/05/2025 10:13:32 08/21/2008/21/2025 CMP, serum or plasm a BUN (blood urea nitrogen), serum or plasma 12 mg/dL low: 8mg/dL high: 23mg/d L Not Available Not Available 09/05/2025 10:13:32 08/21/2008/21/2025 CMP, serum or plasm a creatinine, serum or plasma 0.31 mg/dL low: 0.51mg /dLhig h: 0.95mg /dL low Not Available Not Available 09/05/2025 10:13:32 08/21/2008/21/2025 CMP, serum or plasm a glucose, qn [mass/volume ], serum or plasma 135 mg/dL low: 74mg/d Lhigh: 99mg/d L high Not Available Not Available 09/05/2025 10:13:32 08/21/2008/21/2025 CMP, serum or plasm a protein, total, serum 5.9 g/dL low: 6.7g/d Lhigh: 8.6g/d L low Not Available Not Available 09/05/2025 10:13:32 08/21/2008/21/2025 CMP, serum or plasm a albumin, serum or plasma 3.4 g/dL low: 3.5g/d Lhigh: 5.2g/d L low Not Available Not Available 09/05/2025 10:13:32 08/21/2008/21/2025 CMP, serum or plasm a bilirubin, total, serum or plasma 0.3 mg/dL low: 0mg/dL high: 1.1mg/ dL Not Available Not Available 09/05/2025 10:13:32 08/21/2008/21/2025 CMP, serum or plasm a alkaline phosphatase, serum or plasma 157 U/L low: 35U/Lh igh: 104U/L high Not Available Not Available 09/05/2025 10:13:32 08/21/2008/21/2025 CMP, serum or plasm a AST/SGOT (aspartate aminotransfe rase), serum or plasma 29 U/L high: 33U/L Not Available Not Available 09/05/2025 10:13:32 08/21/2008/21/2025 CMP, serum or plasm a alanine aminotransfe rase, qn, blood (obs) 30 U/L high: 34U/L Not Available Not Available 09/05/2025 10:13:32 08/21/2008/21/2025 CMP, serum or plasm a glomerular filtration rate/1.73 sq M predicted, qn, creatinine based formula (CKD-epi 2020), serum or plasma or blood text: >=60 mL/min /1.73 sq meter eGFR calcu lated with 2020 CKD-E PI equat ion. Veget mai diet, extre kamaljit high or low muscl e mass, and pregn rose may affec t resul ts. Cysta tin C with Glome rular Filtr ation Rate is a suita ble alter nativ e for these patie nts. Not Available Not Available 09/05/2025 10:13:32 08/21/2008/21/2025 CMP, serum or plasm a anion gap, serum or plasma 9 mmol/ L low: 8mmol/ Lhigh: 16mmol /L Not Available Not Available 09/05/2025 10:13:32 08/21/2008/21/2025 CMP, serum or plasm a samples containing indocyanine green cause interference s on total and/or direct bilirubin and must not BE measured. Sample s contai rosa m indocy anine green cause interf erence s on Total and/or Direct Biliru bin and must not be measur ed. Not Available Not Available 10:13:32 08/21/20 25 08/21/2025 CMP, serum or plasm a lab interpretati on Abnorm al Not Available Not Available 10:13:32 08/21/20 25 08/21/2025 CBC w/ auto diff leukocyte count, blood 12.9 K/uL low: 4K/uLh igh: 9.8K/u L high Not Available Not Available 09/05/2025 10:13:32 08/21/20 25 08/21/2025 CBC w/ auto diff RBC count, blood 3.74 text: 3.90 - 4.90 M/uL low Not Available Not Available 09/05/2025 10:13:32 08/21/20 25 08/21/2025 CBC w/ auto diff hemoglobin (Hb), blood 10 g/dL low: 11.8g/ dLhigh : 14.8g/ dL low Not Available Not Available 09/05/2025 10:13:32 08/21/20 25 08/21/2025 CBC w/ auto diff hematocrit, automated count, blood 32.3 % low: 35.5%h igh: 44% low Not Available Not Available 09/05/2025 10:13:32 08/21/20 25 08/21/2025 CBC w/ auto diff MCV, blood 86.4 fL low: 82fLhi gh: 99fL Not Available Not Available 09/05/2025 10:13:32 08/21/20 25 08/21/2025 CBC w/ auto diff MCH, qn, automated (obs) 26.7 pg low: 27.2pg high: 32.6pg low Not Available Not Available 09/05/2025 10:13:32 08/21/20 25 08/21/2025 CBC w/ auto diff MCHC, qn, automated (obs) 31 g/dL low: 31.5g/ dLhigh : 35.5g/ dL low Not Available Not Available 09/05/2025 10:13:32 08/21/20 25 08/21/2025 CBC w/ auto diff RDW 15.3 % low: 11.5%h igh: 14.5% high Not Available Not Available 09/05/2025 10:13:32 08/21/20 25 08/21/2025 CBC w/ auto diff RDW-stdev 47.8 fL low: 37.1fL high: 48.7fL Not Available Not Available 09/05/2025 10:13:32 08/21/20 25 08/21/2025 CBC w/ auto diff platelets, auto, blood 401 K/uL low: 140K/u Lhigh: 350K/u L high Not Available Not Available 09/05/2025 10:13:32 08/21/20 25 08/21/2025 CBC w/ auto diff platelet mean volume, qn, automated, blood (obs) 8.7 fL low: 9.3fLh igh: 12.4fL low Not Available Not Available 09/05/2025 10:13:32 08/21/20 25 08/21/2025 CBC w/ auto diff neutrophils 95 % Not Available Not Av ailable 09/05/2025 10:13:32 08/21/20 25 08/21/2025 CBC w/ auto diff lymphocytes/ 100 leukocytes, automated, blood (obs) 3 % Not Available Not Available 09/05/2025 10:13:32 08/21/20 25 08/21/2025 CBC w/ auto diff monocytes 2 % Not Available Not Avai lable 09/05/2025 10:13:32 08/21/20 25 08/21/2025 CBC w/ auto diff eosinophils 0 % Not Available Not Av ailable 09/05/2025 10:13:32 08/21/20 25 08/21/2025 CBC w/ auto diff basophils 0 % Not Available Not Avai lable 09/05/2025 10:13:32 08/21/20 25 08/21/2025 CBC w/ auto diff immature granulocytes 1 % IG (Damaris ture Granu locyt e) count inclu elsa Metam yeloc ytes, Myelo cytes , and Promy elocy robbie Not Available Not Available 09/05/2025 10:13:32 08/21/20 25 08/21/2025 CBC w/ auto diff neutrophil count, absolute (anc), blood (obs) 12.21 K/uL low: 1.9K/u Lhigh: 7K/uL high Not Available Not Available 09/05/2025 10:13:32 08/21/20 25 08/21/2025 CBC w/ auto diff lymphocytes, quantitative , blood, automated count (obs) 0.32 K/uL low: 0.7K/u Lhigh: 4.5K/u L low Not Available Not Available 09/05/2025 10:13:32 08/21/20 25 08/21/2025 CBC w/ auto diff monocytes, count, automated, blood (obs) 0.22 K/uL low: 0.1K/u Lhigh: 1.3K/u L Not Available Not Available 09/05/2025 10:13:32 08/21/20 25 08/21/2025 CBC w/ auto diff eosinophils, auto, blood, absolute 0 K/uL low: 0K/uLh igh: 0.7K/u L Not Available Not Available 09/05/2025 10:13:32 08/21/20 25 08/21/2025 CBC w/ auto diff basophils, quant, auto, blood (obs) 0.01 K/uL low: 0K/uLh igh: 0.2K/u L Not Available Not Available 09/05/2025 10:13:32 08/21/20 25 08/21/2025 CBC w/ auto diff immature granulocytes absolute 0.13 K/uL low: 0K/uLh igh: 0.03K/ uL high Not Available Not Available 09/05/2025 10:13:32 08/21/20 25 08/21/2025 CBC w/ auto diff lab interpretati on Abnorm al Not Available Not Available 10:13:32 08/23/20 25 08/23/2025 CMP, serum or plasm a sodium, serum or plasma 129 mmol/ L low: 136mmo l/Lhig h: 145mmo l/L low Not Available Not Available 09/05/2025 10:13:33 08/23/20 25 08/23/2025 CMP, serum or plasm a potassium, serum or plasma 4.7 mmol/ L low: 3.5mmo l/Lhig h: 5mmol/ L Not Available Not Available 09/05/2025 10:13:33 08/23/20 25 08/23/2025 CMP, serum or plasm a chloride, serum or plasma 90 mmol/ L low: 98mmol /Lhigh : 107mmo l/L low Not Available Not Available 09/05/2025 10:13:33 08/23/20 25 08/23/2025 CMP, serum or plasm a CO2, (carbon dioxide), total, serum or plasma 32 mmol/ L low: 22mmol /Lhigh : 29mmol /L high Not Available Not Available 09/05/2025 10:13:33 08/23/20 25 08/23/2025 CMP, serum or plasm a calcium, serum or plasma 8.5 mg/dL low: 8.6mg/ dLhigh : 10.2mg /dL low Not Available Not Available 09/05/2025 10:13:33 08/23/20 25 08/23/2025 CMP, serum or plasm a BUN (blood urea nitrogen), serum or plasma 11 mg/dL low: 8mg/dL high: 23mg/d L Not Available Not Available 09/05/2025 10:13:33 08/23/20 25 08/23/2025 CMP, serum or plasm a creatinine, serum or plasma 0.41 mg/dL low: 0.51mg /dLhig h: 0.95mg /dL low Not Available Not Available 09/05/2025 10:13:33 08/23/20 25 08/23/2025 CMP, serum or plasm a glucose, qn [mass/volume ], serum or plasma 119 mg/dL low: 74mg/d Lhigh: 99mg/d L high Not Available Not Available 09/05/2025 10:13:33 08/23/20 25 08/23/2025 CMP, serum or plasm a protein, total, serum 6.2 g/dL low: 6.7g/d Lhigh: 8.6g/d L low Not Available Not Available 09/05/2025 10:13:33 08/23/20 25 08/23/2025 CMP, serum or plasm a albumin, serum or plasma 3.4 g/dL low: 3.5g/d Lhigh: 5.2g/d L low Not Available Not Available 09/05/2025 10:13:33 08/23/20 25 08/23/2025 CMP, serum or plasm a bilirubin, total, serum or plasma 0.2 mg/dL low: 0mg/dL high: 1.1mg/ dL Not Available Not Available 09/05/2025 10:13:33 08/23/20 25 08/23/2025 CMP, serum or plasm a alkaline phosphatase, serum or plasma 168 U/L low: 35U/Lh igh: 104U/L high Not Available Not Available 09/05/2025 10:13:33 08/23/20 25 08/23/2025 CMP, serum or plasm a AST/SGOT (aspartate aminotransfe rase), serum or plasma 28 U/L high: 33U/L Not Available Not Available 09/05/2025 10:13:33 08/23/20 25 08/23/2025 CMP, serum or plasm a alanine aminotransfe rase, qn, blood (obs) 26 U/L high: 34U/L Not Available Not Available 09/05/2025 10:13:33 08/23/20 25 08/23/2025 CMP, serum or plasm a glomerular filtration rate/1.73 sq M predicted, qn, creatinine based formula (CKD-epi 2020), serum or plasma or blood text: >=60 mL/min /1.73 sq meter eGFR calcu lated with 2020 CKD-E PI equat ion. Veget mai diet, extre kamaljit high or low muscl e mass, and pregn rose may affec t resul ts. Cysta tin C with Glome rular Filtr ation Rate is a suita ble alter nativ e for these patie nts. Not Available Not Available 09/05/2025 10:13:33 08/23/2008/23/2025 CMP, serum or plasm a anion gap, serum or plasma 7 mmol/ L low: 8mmol/ Lhigh: 16mmol /L low Not Available Not Available 09/05/2025 10:13:33 08/23/20 25 08/23/2025 CMP, serum or plasm a samples containing indocyanine green cause interference s on total and/or direct bilirubin and must not BE measured. Sample s contai rosa m indocy anine green cause interf erence s on Total and/or Direct Biliru bin and must not be measur ed. Not Available Not Available 10:13:33 08/23/20 25 08/23/2025 CMP, serum or plasm a lab interpretati on Abnorm al Not Available Not Available 10:13:33 08/23/20 25 08/23/2025 CBC w/ auto diff leukocyte count, blood 9.9 K/uL low: 4K/uLh igh: 9.8K/u L high Not Available Not Available 09/05/2025 10:13:32 08/23/20 25 08/23/2025 CBC w/ auto diff RBC count, blood 3.83 text: 3.90 - 4.90 M/uL low Not Available Not Available 09/05/2025 10:13:32 08/23/20 25 08/23/2025 CBC w/ auto diff hemoglobin (Hb), blood 10.4 g/dL low: 11.8g/ dLhigh : 14.8g/ dL low Not Available Not Available 09/05/2025 10:13:32 08/23/20 25 08/23/2025 CBC w/ auto diff hematocrit, automated count, blood 33.1 % low: 35.5%h igh: 44% low Not Available Not Available 09/05/2025 10:13:32 08/23/20 25 08/23/2025 CBC w/ auto diff MCV, blood 86.4 fL low: 82fLhi gh: 99fL Not Available Not Available 09/05/2025 10:13:32 08/23/20 25 08/23/2025 CBC w/ auto diff MCH, qn, automated (obs) 27.2 pg low: 27.2pg high: 32.6pg Not Available Not Available 09/05/2025 10:13:32 08/23/20 25 08/23/2025 CBC w/ auto diff MCHC, qn, automated (obs) 31.4 g/dL low: 31.5g/ dLhigh : 35.5g/ dL low Not Available Not Available 09/05/2025 10:13:32 08/23/20 25 08/23/2025 CBC w/ auto diff RDW 15.2 % low: 11.5%h igh: 14.5% high Not Available Not Available 09/05/2025 10:13:32 08/23/20 25 08/23/2025 CBC w/ auto diff RDW-stdev 47.2 fL low: 37.1fL high: 48.7fL Not Available Not Available 09/05/2025 10:13:32 08/23/20 25 08/23/2025 CBC w/ auto diff platelets, auto, blood 391 K/uL low: 140K/u Lhigh: 350K/u L high Not Available Not Available 09/05/2025 10:13:32 08/23/20 25 08/23/2025 CBC w/ auto diff platelet mean volume, qn, automated, blood (obs) 8.8 fL low: 9.3fLh igh: 12.4fL low Not Available Not Available 09/05/2025 10:13:32 08/23/20 25 08/23/2025 CBC w/ auto diff neutrophils 87 % Not Available Not Av ailable 09/05/2025 10:13:32 08/23/20 25 08/23/2025 CBC w/ auto diff lymphocytes/ 100 leukocytes, automated, blood (obs) 6 % Not Available Not Available 09/05/2025 10:13:32 08/23/20 25 08/23/2025 CBC w/ auto diff monocytes 6 % Not Available Not Avai lable 09/05/2025 10:13:32 08/23/20 25 08/23/2025 CBC w/ auto diff eosinophils 0 % Not Available Not Av ailable 09/05/2025 10:13:32 08/23/20 25 08/23/2025 CBC w/ auto diff basophils 0 % Not Available Not Avai lable 09/05/2025 10:13:32 08/23/20 25 08/23/2025 CBC w/ auto diff immature granulocytes 1 % IG (Damaris ture Granu locyt e) count inclu elsa Metam yeloc ytes, Myelo cytes , and Promy elocy robbie Not Available Not Available 09/05/2025 10:13:32 08/23/20 25 08/23/2025 CBC w/ auto diff neutrophil count, absolute (anc), blood (obs) 8.62 K/uL low: 1.9K/u Lhigh: 7K/uL high Not Available Not Available 09/05/2025 10:13:32 08/23/20 25 08/23/2025 CBC w/ auto diff lymphocytes, quantitative , blood, automated count (obs) 0.61 K/uL low: 0.7K/u Lhigh: 4.5K/u L low Not Available Not Available 09/05/2025 10:13:32 08/23/20 25 08/23/2025 CBC w/ auto diff monocytes, count, automated, blood (obs) 0.58 K/uL low: 0.1K/u Lhigh: 1.3K/u L Not Available Not Available 09/05/2025 10:13:32 08/23/20 25 08/23/2025 CBC w/ auto diff eosinophils, auto, blood, absolute 0 K/uL low: 0K/uLh igh: 0.7K/u L Not Available Not Available 09/05/2025 10:13:32 08/23/20 25 08/23/2025 CBC w/ auto diff basophils, quant, auto, blood (obs) 0.01 K/uL low: 0K/uLh igh: 0.2K/u L Not Available Not Available 09/05/2025 10:13:32 08/23/20 25 08/23/2025 CBC w/ auto diff immature granulocytes absolute 0.08 K/uL low: 0K/uLh igh: 0.03K/ uL high Not Available Not Available 09/05/2025 10:13:32 08/23/20 25 08/23/2025 CBC w/ auto diff lab interpretati on Abnorm al Not Available Not Available 10:13:32 08/24/20 25 08/24/2025 CBC w/ auto diff leukocyte count, blood 7.8 K/uL low: 4K/uLh igh: 9.8K/u L Not Available Not Available 09/05/2025 10:13:33 08/24/20 25 08/24/2025 CBC w/ auto diff RBC count, blood 3.44 text: 3.90 - 4.90 M/uL low Not Available Not Available 09/05/2025 10:13:33 08/24/20 25 08/24/2025 CBC w/ auto diff hemoglobin (Hb), blood 9.1 g/dL low: 11.8g/ dLhigh : 14.8g/ dL low Not Available Not Available 09/05/2025 10:13:33 08/24/20 25 08/24/2025 CBC w/ auto diff hematocrit, automated count, blood 30.5 % low: 35.5%h igh: 44% low Not Available Not Available 09/05/2025 10:13:33 08/24/20 25 08/24/2025 CBC w/ auto diff MCV, blood 88.7 fL low: 82fLhi gh: 99fL Not Available Not Available 09/05/2025 10:13:33 08/24/20 25 08/24/2025 CBC w/ auto diff MCH, qn, automated (obs) 26.5 pg low: 27.2pg high: 32.6pg low Not Available Not Available 09/05/2025 10:13:33 08/24/20 25 08/24/2025 CBC w/ auto diff MCHC, qn, automated (obs) 29.8 g/dL low: 31.5g/ dLhigh : 35.5g/ dL low Not Available Not Available 09/05/2025 10:13:33 08/24/20 25 08/24/2025 CBC w/ auto diff RDW 15.3 % low: 11.5%h igh: 14.5% high Not Available Not Available 09/05/2025 10:13:33 08/24/20 25 08/24/2025 CBC w/ auto diff RDW-stdev 49.4 fL low: 37.1fL high: 48.7fL high Not Available Not Available 09/05/2025 10:13:33 08/24/20 25 08/24/2025 CBC w/ auto diff platelets, auto, blood 332 K/uL low: 140K/u Lhigh: 350K/u L Not Available Not Available 09/05/2025 10:13:33 08/24/20 25 08/24/2025 CBC w/ auto diff platelet mean volume, qn, automated, blood (obs) 8.8 fL low: 9.3fLh igh: 12.4fL low Not Available Not Available 09/05/2025 10:13:33 08/24/20 25 08/24/2025 CBC w/ auto diff neutrophils 76 % Not Available Not Av ailable 09/05/2025 10:13:33 08/24/20 25 08/24/2025 CBC w/ auto diff lymphocytes/ 100 leukocytes, automated, blood (obs) 13 % Not Available Not Available 09/05/2025 10:13:33 08/24/20 25 08/24/2025 CBC w/ auto diff monocytes 9 % Not Available Not Avai lable 09/05/2025 10:13:33 08/24/20 25 08/24/2025 CBC w/ auto diff eosinophils 1 % Not Available Not Av ailable 09/05/2025 10:13:33 08/24/20 25 08/24/2025 CBC w/ auto diff basophils 0 % Not Available Not Avai lable 09/05/2025 10:13:33 08/24/20 25 08/24/2025 CBC w/ auto diff immature granulocytes 1 % IG (Damaris ture Granu locyt e) count inclu elsa Metam yeloc ytes, Myelo cytes , and Promy elocy robbie Not Available Not Available 09/05/2025 10:13:33 08/24/20 25 08/24/2025 CBC w/ auto diff neutrophil count, absolute (anc), blood (obs) 5.94 K/uL low: 1.9K/u Lhigh: 7K/uL Not Available Not Available 09/05/2025 10:13:33 08/24/20 25 08/24/2025 CBC w/ auto diff lymphocytes, quantitative , blood, automated count (obs) 1.05 K/uL low: 0.7K/u Lhigh: 4.5K/u L Not Available Not Available 09/05/2025 10:13:33 08/24/20 25 08/24/2025 CBC w/ auto diff monocytes, count, automated, blood (obs) 0.67 K/uL low: 0.1K/u Lhigh: 1.3K/u L Not Available Not Available 09/05/2025 10:13:33 08/24/20 25 08/24/2025 CBC w/ auto diff eosinophils, auto, blood, absolute 0.05 K/uL low: 0K/uLh igh: 0.7K/u L Not Available Not Available 09/05/2025 10:13:33 08/24/20 25 08/24/2025 CBC w/ auto diff basophils, quant, auto, blood (obs) 0.01 K/uL low: 0K/uLh igh: 0.2K/u L Not Available Not Available 09/05/2025 10:13:33 08/24/20 25 08/24/2025 CBC w/ auto diff immature granulocytes absolute 0.09 K/uL low: 0K/uLh igh: 0.03K/ uL high Not Available Not Available 09/05/2025 10:13:33 08/24/20 25 08/24/2025 CBC w/ auto diff lab interpretati on Abnorm al Not Available Not Available 10:13:33 08/25/20 25 08/25/2025 CBC w/ auto diff leukocyte count, blood 9 K/uL low: 4K/uLh igh: 9.8K/u L Not Available Not Available 09/05/2025 10:13:33 08/25/20 25 08/25/2025 CBC w/ auto diff RBC count, blood 3.7 text: 3.90 - 4.90 M/uL low Not Available Not Available 09/05/2025 10:13:33 08/25/20 25 08/25/2025 CBC w/ auto diff hemoglobin (Hb), blood 9.9 g/dL low: 11.8g/ dLhigh : 14.8g/ dL low Not Available Not Available 09/05/2025 10:13:33 08/25/20 25 08/25/2025 CBC w/ auto diff hematocrit, automated count, blood 32.8 % low: 35.5%h igh: 44% low Not Available Not Available 09/05/2025 10:13:33 08/25/20 25 08/25/2025 CBC w/ auto diff MCV, blood 88.6 fL low: 82fLhi gh: 99fL Not Available Not Available 09/05/2025 10:13:33 08/25/20 25 08/25/2025 CBC w/ auto diff MCH, qn, automated (obs) 26.8 pg low: 27.2pg high: 32.6pg low Not Available Not Available 09/05/2025 10:13:33 08/25/20 25 08/25/2025 CBC w/ auto diff MCHC, qn, automated (obs) 30.2 g/dL low: 31.5g/ dLhigh : 35.5g/ dL low Not Available Not Available 09/05/2025 10:13:33 08/25/20 25 08/25/2025 CBC w/ auto diff RDW 15.5 % low: 11.5%h igh: 14.5% high Not Available Not Available 09/05/2025 10:13:33 08/25/20 25 08/25/2025 CBC w/ auto diff RDW-stdev 50.2 fL low: 37.1fL high: 48.7fL high Not Available Not Available 09/05/2025 10:13:33 08/25/20 25 08/25/2025 CBC w/ auto diff platelets, auto, blood 335 K/uL low: 140K/u Lhigh: 350K/u L Not Available Not Available 09/05/2025 10:13:33 08/25/20 25 08/25/2025 CBC w/ auto diff platelet mean volume, qn, automated, blood (obs) 9.3 fL low: 9.3fLh igh: 12.4fL Not Available Not Available 09/05/2025 10:13:33 08/25/20 25 08/25/2025 CBC w/ auto diff neutrophils 82 % Not Available Not Av ailable 09/05/2025 10:13:33 08/25/20 25 08/25/2025 CBC w/ auto diff lymphocytes/ 100 leukocytes, automated, blood (obs) 9 % Not Available Not Available 09/05/2025 10:13:33 08/25/20 25 08/25/2025 CBC w/ auto diff monocytes 7 % Not Available Not Avai lable 09/05/2025 10:13:33 08/25/20 25 08/25/2025 CBC w/ auto diff eosinophils 1 % Not Available Not Av ailable 09/05/2025 10:13:33 08/25/20 25 08/25/2025 CBC w/ auto diff basophils 0 % Not Available Not Avai lable 09/05/2025 10:13:33 08/25/20 25 08/25/2025 CBC w/ auto diff immature granulocytes 1 % IG (Damaris ture Granu locyt e) count inclu elsa Metam yeloc ytes, Myelo cytes , and Promy elocy robbie Not Available Not Available 09/05/2025 10:13:33 08/25/20 25 08/25/2025 CBC w/ auto diff neutrophil count, absolute (anc), blood (obs) 7.38 K/uL low: 1.9K/u Lhigh: 7K/uL high Not Available Not Available 09/05/2025 10:13:33 08/25/20 25 08/25/2025 CBC w/ auto diff lymphocytes, quantitative , blood, automated count (obs) 0.79 K/uL low: 0.7K/u Lhigh: 4.5K/u L Not Available Not Available 09/05/2025 10:13:33 08/25/20 25 08/25/2025 CBC w/ auto diff monocytes, count, automated, blood (obs) 0.63 K/uL low: 0.1K/u Lhigh: 1.3K/u L Not Available Not Available 09/05/2025 10:13:33 08/25/20 25 08/25/2025 CBC w/ auto diff eosinophils, auto, blood, absolute 0.07 K/uL low: 0K/uLh igh: 0.7K/u L Not Available Not Available 09/05/2025 10:13:33 08/25/20 25 08/25/2025 CBC w/ auto diff basophils, quant, auto, blood (obs) 0.01 K/uL low: 0K/uLh igh: 0.2K/u L Not Available Not Available 09/05/2025 10:13:33 08/25/20 25 08/25/2025 CBC w/ auto diff immature granulocytes absolute 0.13 K/uL low: 0K/uLh igh: 0.03K/ uL high Not Available Not Available 09/05/2025 10:13:33 08/25/20 25 08/25/2025 CBC w/ auto diff lab interpretati on Abnorm al Not Available Not Available 10:13:33 08/26/20 25 08/26/2025 CBC w/ auto diff leukocyte count, blood 8.6 K/uL low: 4K/uLh igh: 9.8K/u L Not Available Not Available 09/05/2025 10:13:33 08/26/20 25 08/26/2025 CBC w/ auto diff RBC count, blood 3.17 text: 3.90 - 4.90 M/uL low Not Available Not Available 09/05/2025 10:13:33 08/26/20 25 08/26/2025 CBC w/ auto diff hemoglobin (Hb), blood 8.6 g/dL low: 11.8g/ dLhigh : 14.8g/ dL low Not Available Not Available 09/05/2025 10:13:33 08/26/20 25 08/26/2025 CBC w/ auto diff hematocrit, automated count, blood 28.1 % low: 35.5%h igh: 44% low Not Available Not Available 09/05/2025 10:13:33 08/26/20 25 08/26/2025 CBC w/ auto diff MCV, blood 88.6 fL low: 82fLhi gh: 99fL Not Available Not Available 09/05/2025 10:13:33 08/26/20 25 08/26/2025 CBC w/ auto diff MCH, qn, automated (obs) 27.1 pg low: 27.2pg high: 32.6pg low Not Available Not Available 09/05/2025 10:13:33 08/26/20 25 08/26/2025 CBC w/ auto diff MCHC, qn, automated (obs) 30.6 g/dL low: 31.5g/ dLhigh : 35.5g/ dL low Not Available Not Available 09/05/2025 10:13:33 08/26/20 25 08/26/2025 CBC w/ auto diff RDW 15.5 % low: 11.5%h igh: 14.5% high Not Available Not Available 09/05/2025 10:13:33 08/26/20 25 08/26/2025 CBC w/ auto diff RDW-stdev 50.1 fL low: 37.1fL high: 48.7fL high Not Available Not Available 09/05/2025 10:13:33 08/26/20 25 08/26/2025 CBC w/ auto diff platelets, auto, blood 289 K/uL low: 140K/u Lhigh: 350K/u L Not Available Not Available 09/05/2025 10:13:33 08/26/20 25 08/26/2025 CBC w/ auto diff platelet mean volume, qn, automated, blood (obs) 9.3 fL low: 9.3fLh igh: 12.4fL Not Available Not Available 09/05/2025 10:13:33 08/26/20 25 08/26/2025 CBC w/ auto diff neutrophils 78 % Not Available Not Av ailable 09/05/2025 10:13:33 08/26/20 25 08/26/2025 CBC w/ auto diff lymphocytes/ 100 leukocytes, automated, blood (obs) 11 % Not Available Not Available 09/05/2025 10:13:33 08/26/20 25 08/26/2025 CBC w/ auto diff monocytes 8 % Not Available Not Avai lable 09/05/2025 10:13:33 08/26/20 25 08/26/2025 CBC w/ auto diff eosinophils 1 % Not Available Not Av ailable 09/05/2025 10:13:33 08/26/20 25 08/26/2025 CBC w/ auto diff basophils 0 % Not Available Not Avai lable 09/05/2025 10:13:33 08/26/20 25 08/26/2025 CBC w/ auto diff immature granulocytes 2 % IG (Damaris ture Granu locyt e) count inclu elsa Metam yeloc ytes, Myelo cytes , and Promy elocy robbie Not Available Not Available 09/05/2025 10:13:33 08/26/20 25 08/26/2025 CBC w/ auto diff neutrophil count, absolute (anc), blood (obs) 6.72 K/uL low: 1.9K/u Lhigh: 7K/uL Not Available Not Available 09/05/2025 10:13:33 08/26/20 25 08/26/2025 CBC w/ auto diff lymphocytes, quantitative , blood, automated count (obs) 0.98 K/uL low: 0.7K/u Lhigh: 4.5K/u L Not Available Not Available 09/05/2025 10:13:33 08/26/20 25 08/26/2025 CBC w/ auto diff monocytes, count, automated, blood (obs) 0.65 K/uL low: 0.1K/u Lhigh: 1.3K/u L Not Available Not Available 09/05/2025 10:13:33 08/26/20 25 08/26/2025 CBC w/ auto diff eosinophils, auto, blood, absolute 0.1 K/uL low: 0K/uLh igh: 0.7K/u L Not Available Not Available 09/05/2025 10:13:33 08/26/20 25 08/26/2025 CBC w/ auto diff basophils, quant, auto, blood (obs) 0.01 K/uL low: 0K/uLh igh: 0.2K/u L Not Available Not Available 09/05/2025 10:13:33 08/26/20 25 08/26/2025 CBC w/ auto diff immature granulocytes absolute 0.13 K/uL low: 0K/uLh igh: 0.03K/ uL high Not Available Not Available 09/05/2025 10:13:33 08/26/20 25 08/26/2025 CBC w/ auto diff lab interpretati on Abnorm al Not Available Not Available 10:13:33 08/27/20 25 08/27/2025 CBC w/ auto diff leukocyte count, blood 8.2 K/uL low: 4K/uLh igh: 9.8K/u L Not Available Not Available 09/05/2025 10:13:33 08/27/20 25 08/27/2025 CBC w/ auto diff RBC count, blood 3.41 text: 3.90 - 4.90 M/uL low Not Available Not Available 09/05/2025 10:13:33 08/27/20 25 08/27/2025 CBC w/ auto diff hemoglobin (Hb), blood 9.4 g/dL low: 11.8g/ dLhigh : 14.8g/ dL low Not Available Not Available 09/05/2025 10:13:33 08/27/20 25 08/27/2025 CBC w/ auto diff hematocrit, automated count, blood 29.8 % low: 35.5%h igh: 44% low Not Available Not Available 09/05/2025 10:13:33 08/27/20 25 08/27/2025 CBC w/ auto diff MCV, blood 87.4 fL low: 82fLhi gh: 99fL Not Available Not Available 09/05/2025 10:13:33 08/27/20 25 08/27/2025 CBC w/ auto diff MCH, qn, automated (obs) 27.6 pg low: 27.2pg high: 32.6pg Not Available Not Available 09/05/2025 10:13:33 08/27/20 25 08/27/2025 CBC w/ auto diff MCHC, qn, automated (obs) 31.5 g/dL low: 31.5g/ dLhigh : 35.5g/ dL Not Available Not Available 09/05/2025 10:13:33 08/27/20 25 08/27/2025 CBC w/ auto diff RDW 15.7 % low: 11.5%h igh: 14.5% high Not Available Not Available 09/05/2025 10:13:33 08/27/20 25 08/27/2025 CBC w/ auto diff RDW-stdev 49.8 fL low: 37.1fL high: 48.7fL high Not Available Not Available 09/05/2025 10:13:33 08/27/20 25 08/27/2025 CBC w/ auto diff platelets, auto, blood 290 K/uL low: 140K/u Lhigh: 350K/u L Not Available Not Available 09/05/2025 10:13:33 08/27/20 25 08/27/2025 CBC w/ auto diff platelet mean volume, qn, automated, blood (obs) 9.4 fL low: 9.3fLh igh: 12.4fL Not Available Not Available 09/05/2025 10:13:33 08/27/20 25 08/27/2025 CBC w/ auto diff neutrophils 76 % Not Available Not Av ailable 09/05/2025 10:13:33 08/27/20 25 08/27/2025 CBC w/ auto diff lymphocytes/ 100 leukocytes, automated, blood (obs) 14 % Not Available Not Available 09/05/2025 10:13:33 08/27/20 25 08/27/2025 CBC w/ auto diff monocytes 8 % Not Available Not Avai lable 09/05/2025 10:13:33 08/27/20 25 08/27/2025 CBC w/ auto diff eosinophils 1 % Not Available Not Av ailable 09/05/2025 10:13:33 08/27/20 25 08/27/2025 CBC w/ auto diff basophils 0 % Not Available Not Avai lable 09/05/2025 10:13:33 08/27/20 25 08/27/2025 CBC w/ auto diff immature granulocytes 1 % IG (Damaris ture Granu locyt e) count inclu elsa Metam yeloc ytes, Myelo cytes , and Promy elocy robbie Not Available Not Available 09/05/2025 10:13:33 08/27/20 25 08/27/2025 CBC w/ auto diff neutrophil count, absolute (anc), blood (obs) 6.21 K/uL low: 1.9K/u Lhigh: 7K/uL Not Available Not Available 09/05/2025 10:13:33 08/27/20 25 08/27/2025 CBC w/ auto diff lymphocytes, quantitative , blood, automated count (obs) 1.13 K/uL low: 0.7K/u Lhigh: 4.5K/u L Not Available Not Available 09/05/2025 10:13:33 08/27/20 25 08/27/2025 CBC w/ auto diff monocytes, count, automated, blood (obs) 0.64 K/uL low: 0.1K/u Lhigh: 1.3K/u L Not Available Not Available 09/05/2025 10:13:33 08/27/20 25 08/27/2025 CBC w/ auto diff eosinophils, auto, blood, absolute 0.08 K/uL low: 0K/uLh igh: 0.7K/u L Not Available Not Available 09/05/2025 10:13:33 08/27/20 25 08/27/2025 CBC w/ auto diff basophils, quant, auto, blood (obs) 0.01 K/uL low: 0K/uLh igh: 0.2K/u L Not Available Not Available 09/05/2025 10:13:33 08/27/20 25 08/27/2025 CBC w/ auto diff immature granulocytes absolute 0.11 K/uL low: 0K/uLh igh: 0.03K/ uL high Not Available Not Available 09/05/2025 10:13:33 08/27/20 25 08/27/2025 CBC w/ auto diff lab interpretati on Abnorm al Not Available Not Available 10:13:33 08/28/2008/28/2025 CBC w/ auto diff leukocyte count, blood 8.5 K/uL low: 4K/uLh igh: 9.8K/u L Not Available Not Available 09/05/2025 10:13:33 08/28/2008/28/2025 CBC w/ auto diff RBC count, blood 3.61 text: 3.90 - 4.90 M/uL low Not Available Not Available 09/05/2025 10:13:33 08/28/2008/28/2025 CBC w/ auto diff hemoglobin (Hb), blood 9.6 g/dL low: 11.8g/ dLhigh : 14.8g/ dL low Not Available Not Available 09/05/2025 10:13:33 08/28/2008/28/2025 CBC w/ auto diff hematocrit, automated count, blood 31.2 % low: 35.5%h igh: 44% low Not Available Not Available 09/05/2025 10:13:33 08/28/2008/28/2025 CBC w/ auto diff MCV, blood 86.4 fL low: 82fLhi gh: 99fL Not Available Not Available 09/05/2025 10:13:33 08/28/2008/28/2025 CBC w/ auto diff MCH, qn, automated (obs) 26.6 pg low: 27.2pg high: 32.6pg low Not Available Not Available 09/05/2025 10:13:33 08/28/2008/28/2025 CBC w/ auto diff MCHC, qn, automated (obs) 30.8 g/dL low: 31.5g/ dLhigh : 35.5g/ dL low Not Available Not Available 09/05/2025 10:13:33 08/28/2008/28/2025 CBC w/ auto diff RDW 15.8 % low: 11.5%h igh: 14.5% high Not Available Not Available 09/05/2025 10:13:33 08/28/20 25 08/28/2025 CBC w/ auto diff RDW-stdev 49.4 fL low: 37.1fL high: 48.7fL high Not Available Not Available 09/05/2025 10:13:33 08/28/2008/28/2025 CBC w/ auto diff platelets, auto, blood 294 K/uL low: 140K/u Lhigh: 350K/u L Not Available Not Available 09/05/2025 10:13:33 08/28/2008/28/2025 CBC w/ auto diff platelet mean volume, qn, automated, blood (obs) 9.3 fL low: 9.3fLh igh: 12.4fL Not Available Not Available 09/05/2025 10:13:33 08/28/2008/28/2025 CBC w/ auto diff neutrophils 76 % Not Available Not Av ailable 09/05/2025 10:13:33 08/28/2008/28/2025 CBC w/ auto diff lymphocytes/ 100 leukocytes, automated, blood (obs) 13 % Not Available Not Available 09/05/2025 10:13:33 08/28/2008/28/2025 CBC w/ auto diff monocytes 9 % Not Available Not Avai lable 09/05/2025 10:13:33 08/28/2008/28/2025 CBC w/ auto diff eosinophils 1 % Not Available Not Av ailable 09/05/2025 10:13:33 08/28/2008/28/2025 CBC w/ auto diff basophils 0 % Not Available Not Avai lable 09/05/2025 10:13:33 08/28/2008/28/2025 CBC w/ auto diff immature granulocytes 2 % IG (Damaris ture Granu locyt e) count inclu elsa Metam yeloc ytes, Myelo cytes , and Promy elocy robbie Not Available Not Available 09/05/2025 10:13:33 08/28/2008/28/2025 CBC w/ auto diff neutrophil count, absolute (anc), blood (obs) 6.41 K/uL low: 1.9K/u Lhigh: 7K/uL Not Available Not Available 09/05/2025 10:13:33 08/28/20 25 08/28/2025 CBC w/ auto diff lymphocytes, quantitative , blood, automated count (obs) 1.11 K/uL low: 0.7K/u Lhigh: 4.5K/u L Not Available Not Available 09/05/2025 10:13:33 08/28/2008/28/2025 CBC w/ auto diff monocytes, count, automated, blood (obs) 0.75 K/uL low: 0.1K/u Lhigh: 1.3K/u L Not Available Not Available 09/05/2025 10:13:33 08/28/2008/28/2025 CBC w/ auto diff eosinophils, auto, blood, absolute 0.08 K/uL low: 0K/uLh igh: 0.7K/u L Not Available Not Available 09/05/2025 10:13:33 08/28/2008/28/2025 CBC w/ auto diff basophils, quant, auto, blood (obs) 0.02 K/uL low: 0K/uLh igh: 0.2K/u L Not Available Not Available 09/05/2025 10:13:33 08/28/2008/28/2025 CBC w/ auto diff immature granulocytes absolute 0.13 K/uL low: 0K/uLh igh: 0.03K/ uL high Not Available Not Available 09/05/2025 10:13:33 08/28/2008/28/2025 CBC w/ auto diff lab interpretati on Abnorm al Not Available Not Available 10:13:33 08/29/2008/29/2025 CBC w/ auto diff leukocyte count, blood 7.6 K/uL low: 4K/uLh igh: 9.8K/u L Not Available Not Available 09/05/2025 10:13:33 08/29/20 25 08/29/2025 CBC w/ auto diff RBC count, blood 3.37 text: 3.90 - 4.90 M/uL low Not Available Not Available 09/05/2025 10:13:33 08/29/20 25 08/29/2025 CBC w/ auto diff hemoglobin (Hb), blood 9.1 g/dL low: 11.8g/ dLhigh : 14.8g/ dL low Not Available Not Available 09/05/2025 10:13:33 08/29/20 25 08/29/2025 CBC w/ auto diff hematocrit, automated count, blood 30.1 % low: 35.5%h igh: 44% low Not Available Not Available 09/05/2025 10:13:33 08/29/20 25 08/29/2025 CBC w/ auto diff MCV, blood 89.3 fL low: 82fLhi gh: 99fL Not Available Not Available 09/05/2025 10:13:33 08/29/20 25 08/29/2025 CBC w/ auto diff MCH, qn, automated (obs) 27 pg low: 27.2pg high: 32.6pg low Not Available Not Available 09/05/2025 10:13:33 08/29/20 25 08/29/2025 CBC w/ auto diff MCHC, qn, automated (obs) 30.2 g/dL low: 31.5g/ dLhigh : 35.5g/ dL low Not Available Not Available 09/05/2025 10:13:33 08/29/20 25 08/29/2025 CBC w/ auto diff RDW 15.7 % low: 11.5%h igh: 14.5% high Not Available Not Available 09/05/2025 10:13:33 08/29/20 25 08/29/2025 CBC w/ auto diff RDW-stdev 51.2 fL low: 37.1fL high: 48.7fL high Not Available Not Available 09/05/2025 10:13:33 08/29/20 25 08/29/2025 CBC w/ auto diff platelets, auto, blood 289 K/uL low: 140K/u Lhigh: 350K/u L Not Available Not Available 09/05/2025 10:13:33 08/29/20 25 08/29/2025 CBC w/ auto diff platelet mean volume, qn, automated, blood (obs) 9.6 fL low: 9.3fLh igh: 12.4fL Not Available Not Available 09/05/2025 10:13:33 08/29/20 25 08/29/2025 CBC w/ auto diff neutrophils 75 % Not Available Not Av ailable 09/05/2025 10:13:33 08/29/20 25 08/29/2025 CBC w/ auto diff lymphocytes/ 100 leukocytes, automated, blood (obs) 12 % Not Available Not Available 09/05/2025 10:13:33 08/29/20 25 08/29/2025 CBC w/ auto diff monocytes 10 % Not Available Not Avai lable 09/05/2025 10:13:33 08/29/20 25 08/29/2025 CBC w/ auto diff eosinophils 1 % Not Available Not Av ailable 09/05/2025 10:13:33 08/29/20 25 08/29/2025 CBC w/ auto diff basophils 0 % Not Available Not Avai lable 09/05/2025 10:13:33 08/29/20 25 08/29/2025 CBC w/ auto diff immature granulocytes 2 % IG (Damaris ture Granu locyt e) count inclu elsa Metam yeloc ytes, Myelo cytes , and Promy elocy robbie Not Available Not Available 09/05/2025 10:13:33 08/29/20 25 08/29/2025 CBC w/ auto diff neutrophil count, absolute (anc), blood (obs) 5.72 K/uL low: 1.9K/u Lhigh: 7K/uL Not Available Not Available 09/05/2025 10:13:33 08/29/20 25 08/29/2025 CBC w/ auto diff lymphocytes, quantitative , blood, automated count (obs) 0.94 K/uL low: 0.7K/u Lhigh: 4.5K/u L Not Available Not Available 09/05/2025 10:13:33 08/29/20 25 08/29/2025 CBC w/ auto diff monocytes, count, automated, blood (obs) 0.73 K/uL low: 0.1K/u Lhigh: 1.3K/u L Not Available Not Available 09/05/2025 10:13:33 08/29/20 25 08/29/2025 CBC w/ auto diff eosinophils, auto, blood, absolute 0.07 K/uL low: 0K/uLh igh: 0.7K/u L Not Available Not Available 09/05/2025 10:13:33 08/29/20 25 08/29/2025 CBC w/ auto diff basophils, quant, auto, blood (obs) 0.01 K/uL low: 0K/uLh igh: 0.2K/u L Not Available Not Available 09/05/2025 10:13:33 08/29/20 25 08/29/2025 CBC w/ auto diff immature granulocytes absolute 0.14 K/uL low: 0K/uLh igh: 0.03K/ uL high Not Available Not Available 09/05/2025 10:13:33 08/29/20 25 08/29/2025 CBC w/ auto diff lab interpretati on Abnorm al Not Available Not Available 10:13:33 09/04/20 25 09/04/2025 respi rator y patho gens DNA and RNA panel , PCR, nasop haryn x respiratory pathogens DNA + RNA panel, JOSH+probe, nasopharynx NOT DETECT ED text: no respir atory pathog en nuclei c acids detect ed. Not Available Not Available 09/05/2025 10:12:20 09/04/20 25 09/04/2025 respi rator y patho gens DNA and RNA panel , PCR, nasop haryn x sars cov 2 RNA, ql, nasopharynx NOT DETECT ED text: not detect ed Not Available Not Available 09/05/2025 10:12:20 09/04/20 25 09/04/2025 respi rator y patho gens DNA and RNA panel , PCR, nasop haryn x the film array respiratory panel (rp2.1) IS A multiplex nucleic acid detection test for 22 targets. viruses: adenovirus coronavirus hku1, nl63, 229E, and oc43 covid-19/sev ere acute respiratory syndrome coronavirus 2 influenza A with the following subtypes: H1, H1-2009, and H3 influenza B human metapneumovi shelley parainfluenz a virus 1, 2, 3, and 4 respiratory syncytial virus (RSV) rhinovirus/e nterovirus (cannot differentiat e due to genetic similarities ) bacteria: bordetella pertussis bordetella parapertussi s chlamydophil a pneumoniae mycoplasma pneumoniae The Film Array Respir atory Panel (RP2.1 ) is a multip marychuy nuclei c acid detect ion test for 22 target s. Viruse s: Adenov irus Mendoza virus HKU1, NL63, 229E, and OC43 COVID- 19/Sev ere Acute Respir atory Syndro me Mendoza virus 2 Influe nza A with the follow ing subtyp es: H1, H1-200 9, and H3 Influe nza B Human Metapn eumovi shelley Parain fluenz a virus 1, 2, 3, and 4 Respir atory Syncyt ial virus (RSV) Rhinov irus/E nterov irus (canno t differ entiat e due to geneti c simila rities ) Bacter ia: Bordet france pertus sis Bordet france parape rtussi s Chlamy dophil a pneumo niae Mycopl asma pneumo niae Not Available Not Available 10:12:20 09/04/20 25 09/04/2025 respi rator y patho gens DNA and RNA panel , PCR, nasop haryn x lab interpretati on Normal Not Available Not Available 12/2024 10:12:20 09/04/20 25 09/04/2025 BMP, serum or plasm a sodium, serum or plasma 133 mmol/ L low: 136mmo l/Lhig h: 145mmo l/L low Not Available Not Available 09/05/2025 10:12:20 09/04/20 25 09/04/2025 BMP, serum or plasm a potassium, serum or plasma 4.2 mmol/ L low: 3.5mmo l/Lhig h: 5mmol/ L Not Available Not Available 09/05/2025 10:12:20 09/04/2009/04/2025 BMP, serum or plasm a chloride, serum or plasma 95 mmol/ L low: 98mmol /Lhigh : 107mmo l/L low Not Available Not Available 09/05/2025 10:12:20 09/04/20 25 09/04/2025 BMP, serum or plasm a CO2, (carbon dioxide), total, serum or plasma 31 mmol/ L low: 22mmol /Lhigh : 29mmol /L high Not Available Not Available 09/05/2025 10:12:20 09/04/20 25 09/04/2025 BMP, serum or plasm a calcium, serum or plasma 8.8 mg/dL low: 8.6mg/ dLhigh : 10.2mg /dL Not Available Not Available 09/05/2025 10:12:20 09/04/20 25 09/04/2025 BMP, serum or plasm a BUN (blood urea nitrogen), serum or plasma 13 mg/dL low: 8mg/dL high: 23mg/d L Not Available Not Available 09/05/2025 10:12:20 09/04/2009/04/2025 BMP, serum or plasm a creatinine, serum or plasma 0.3 mg/dL low: 0.51mg /dLhig h: 0.95mg /dL low Not Available Not Available 09/05/2025 10:12:20 09/04/20 25 09/04/2025 BMP, serum or plasm a glucose, qn [mass/volume ], serum or plasma 109 mg/dL low: 74mg/d Lhigh: 99mg/d L high Not Available Not Available 09/05/2025 10:12:20 09/04/2009/04/2025 BMP, serum or plasm a glomerular filtration rate/1.73 sq M predicted, qn, creatinine based formula (CKD-epi 2020), serum or plasma or blood text: >=60 mL/min /1.73 sq meter eGFR calcu lated with 2020 CKD-E PI equat ion. Veget mai diet, extre kamaljit high or low muscl e mass, and pregn rose may affec t resul ts. Cysta tin C with Glome rular Filtr ation Rate is a suita ble alter nativ e for these patie nts. Not Available Not Available 09/05/2025 10:12:20 09/04/2009/04/2025 BMP, serum or plasm a anion gap, serum or plasma 7 mmol/ L low: 8mmol/ Lhigh: 16mmol /L low Not Available Not Available 09/05/2025 10:12:20 09/04/20 25 09/04/2025 BMP, serum or plasm a lab interpretati on Abnorm al Not Available Not Available 10:12:20 09/04/20 25 09/04/2025 CBC w/ auto diff leukocyte count, blood 10.1 K/uL low: 4K/uLh igh: 9.8K/u L high Not Available Not Available 09/05/2025 10:12:20 09/04/20 25 09/04/2025 CBC w/ auto diff RBC count, blood 3.9 text: 3.90 - 4.90 M/uL Not Available Not Available 09/05/2025 10:12:20 09/04/20 25 09/04/2025 CBC w/ auto diff hemoglobin (Hb), blood 10.5 g/dL low: 11.8g/ dLhigh : 14.8g/ dL low Not Available Not Available 09/05/2025 10:12:20 09/04/20 25 09/04/2025 CBC w/ auto diff hematocrit, automated count, blood 33.7 % low: 35.5%h igh: 44% low Not Available Not Available 09/05/2025 10:12:20 09/04/20 25 09/04/2025 CBC w/ auto diff MCV, blood 86.4 fL low: 82fLhi gh: 99fL Not Available Not Available 09/05/2025 10:12:20 09/04/20 25 09/04/2025 CBC w/ auto diff MCH, qn, automated (obs) 26.9 pg low: 27.2pg high: 32.6pg low Not Available Not Available 09/05/2025 10:12:20 09/04/20 25 09/04/2025 CBC w/ auto diff MCHC, qn, automated (obs) 31.2 g/dL low: 31.5g/ dLhigh : 35.5g/ dL low Not Available Not Available 09/05/2025 10:12:20 09/04/20 25 09/04/2025 CBC w/ auto diff RDW 15.7 % low: 11.5%h igh: 14.5% high Not Available Not Available 09/05/2025 10:12:20 09/04/20 25 09/04/2025 CBC w/ auto diff RDW-stdev 49.1 fL low: 37.1fL high: 48.7fL high Not Available Not Available 09/05/2025 10:12:20 09/04/20 25 09/04/2025 CBC w/ auto diff platelets, auto, blood 389 K/uL low: 140K/u Lhigh: 350K/u L high Not Available Not Available 09/05/2025 10:12:20 09/04/20 25 09/04/2025 CBC w/ auto diff platelet mean volume, qn, automated, blood (obs) 9.3 fL low: 9.3fLh igh: 12.4fL Not Available Not Available 09/05/2025 10:12:20 09/04/20 25 09/04/2025 CBC w/ auto diff neutrophils 78 % Not Available Not Av ailable 09/05/2025 10:12:20 09/04/20 25 09/04/2025 CBC w/ auto diff lymphocytes/ 100 leukocytes, automated, blood (obs) 13 % Not Available Not Available 09/05/2025 10:12:20 09/04/20 25 09/04/2025 CBC w/ auto diff monocytes 8 % Not Available Not Avai lable 09/05/2025 10:12:20 09/04/20 25 09/04/2025 CBC w/ auto diff eosinophils 0 % Not Available Not Av ailable 09/05/2025 10:12:20 09/04/20 25 09/04/2025 CBC w/ auto diff basophils 0 % Not Available Not Avai lable 09/05/2025 10:12:20 09/04/20 25 09/04/2025 CBC w/ auto diff immature granulocytes 1 % IG (Damaris ture Granu locyt e) count inclu elsa Metam yeloc ytes, Myelo cytes , and Promy elocy robbie Not Available Not Available 09/05/2025 10:12:20 09/04/20 25 09/04/2025 CBC w/ auto diff neutrophil count, absolute (anc), blood (obs) 7.8 K/uL low: 1.9K/u Lhigh: 7K/uL high Not Available Not Available 09/05/2025 10:12:20 09/04/20 25 09/04/2025 CBC w/ auto diff lymphocytes, quantitative , blood, automated count (obs) 1.3 K/uL low: 0.7K/u Lhigh: 4.5K/u L Not Available Not Available 09/05/2025 10:12:20 09/04/20 25 09/04/2025 CBC w/ auto diff monocytes, count, automated, blood (obs) 0.79 K/uL low: 0.1K/u Lhigh: 1.3K/u L Not Available Not Available 09/05/2025 10:12:20 09/04/20 25 09/04/2025 CBC w/ auto diff eosinophils, auto, blood, absolute 0.01 K/uL low: 0K/uLh igh: 0.7K/u L Not Available Not Available 09/05/2025 10:12:20 09/04/20 25 09/04/2025 CBC w/ auto diff basophils, quant, auto, blood (obs) 0.02 K/uL low: 0K/uLh igh: 0.2K/u L Not Available Not Available 09/05/2025 10:12:20 09/04/20 25 09/04/2025 CBC w/ auto diff immature granulocytes absolute 0.14 K/uL low: 0K/uLh igh: 0.03K/ uL high Not Available Not Available 09/05/2025 10:12:20 09/04/20 25 09/04/2025 CBC w/ auto diff lab interpretati on Abnorm al Not Available Not Available 10:12:20 04/04/20 25 03/14/2025 6 minut e walk test* No observ ation record ed. [facility] [id number], [place], [address], 04/11/2025 13:58:22 04/12/20 25 04/12/2025 XR, chest , 2 view No observ ation record ed. [facility] [address], [place], [address], 04/24/2025 14:54:36 05/28/20 25 05/27/2025 lab* No observ ation record ed. [email or web address], [place], [address], 05/29/2025 15:38:35 05/30/20 25 05/30/2025 lab* No observ ation record ed. [email or web address] [id number] [facility] [address], [place], [address], 05/30/2025 15:39:23 06/05/20 25 05/27/2025 US, echoc ardio gram, trans thora cic, compl ete, w/ color flow No observ ation record ed. BARCODE Not Available 2024 15:35:38 08/06/2008/05/2025 XR, chest , 2 view No observ ation record ed. [facility] [address], [place], [address], 08/07/2025 12:43:19 08/06/2008/05/2025 CT, angio gram, chest , w/ contr ast No observ ation record ed. [facility] [address] [facility] [address], [place], [address], 08/07/2025 11:14:26 Result Notes None recorded. Problems Name Problem SNOMED Code Status Onset Date Resolution Date Notes Provider Name and Address Organization Details Recorded Time Chronic obstructiv e pulmonary disease 86378264 Active 2021 KIMBERLI SALDANA Attn: Narendra nixon,[address] [place], [address], [place] [facility] 11:05:32 Human immunodefi ciency virus infection 39151239 Active 2021 Cinda Go MD Attn: Narendra nixon,[address] [place], [address], [place] [facility] 5 11:28:54 Cavernous hemangioma of brain 684658876 Active 2021 KIMBERLI SALDANA Attn: Narendra nixon,[address] [place], [address], [place] [facility] 2 11:48:59 Tobacco dependence in remission 844635807 Active 2021 quit 01/2022 KIMBERLI SALDANA Attn: Narendra nixon,[address] [place], [address], [place] [facility] 2 11:49:16 Prediabete s 542482425 Active 2021 a1c 6.4 KIMBERLI SALDANA Attn: Narendra nixon,[address] [place], [address], [place] [facility] 2 11:15:00 Liver mass 338010154 Active 2023 MRI nl KIMBERLI SALDANA Attn: Narendra nixon,[address], [place], [address], [place] [facility] 4 09:17:42 Pulmonary emphysema 14091906 Active 2023 KIMBERLI SALDANA Attn: Narendra g,[address], [place], [address], [place] [facility] 4 09:25:28 Screening for malignant neoplasm of colon Active 2023 cologuard negative 06/2024, repeat 2026 KIMBERLI SALDANA Attn: Narendra nixon,[address], [place], [address], [place] [facility] 4 10:56:13 Problem Notes None recorded. Procedures Surgical History Date Name Laterality Status Provider Name and Address Organization Details Recorded Time Partial hysterectomy completed Danni Chowdary [place] [facility] 03/20/2022 11:01:10 tonsilectomy/wicho oids completed Danni Chowdary [place] [facility] 03/20/2022 11:01:18 Imaging Results None recorded. Procedure Notes None recorded. Medical Equipment None Reported. Allergies Allergen ID Allergen Name Allergen Category Reaction Reaction Severity Criticality Documentation Date Start Date Code Code System Note Provider Name and Address Organization Details Recorded Time 568339 Demerol medicatio n Not available Not available Not available 03/20/2022 97182 1 RxNorm Danni Chowdary [place] null, [place] - [facility] 2 10:55:01 [id number] meperidin e medicatio n anaphylax is Not available high 07/24/20252021 6754 RxNorm Not Available lee ann [...] completed Not Available Not Available Not Available Perlaztri Aerosphere 160 mcg-9mcg-4. 8mcg/actuat ion HFA aerosol inhaler Inhale by inhalatio n route for 30 days. 05/20 completed Not Available Not Available Not Available Vitals Date Recorded Body height Body mass index (BMI) Body weight Body temperature Respiratory rate Pain severity - 0-10 verbal numeric rating [Score] - Reported Oxygen saturation Heart rate Systolic And Diastolic Provider Name and Address Organization Details Last Updated DateTime 5 160.02 cm 16.7 kg/m2 14712.6 8 g 96.6 [degF] 22 /min 0 96 % 96 /min 162/86 mm[Hg] Renate Fraser LPN [place] - [facility] 5 15:31:05 Date Recorded Body height Body mass index (BMI) Body weight Heart rate Oxygen saturation Respiratory rate Body temperature Systolic And Diastolic Provider Name and Address Organization Details Last Updated DateTime 5 160.02 cm 16.5 kg/m2 12987.0 9 g 86 /min 90 % 18 /min 97.5 [degF] 130/80 mm[Hg] Vaishali Clifford MA [place] - [facility] 5 10:44:49 Date Recorded Body height Body mass index (BMI) Body weight Heart rate Oxygen saturation Respiratory rate Body temperature Systolic And Diastolic Provider Name and Address Organization Details Last Updated DateTime 5 160.02 cm 17.5 kg/m2 37087.2 9 g 81 /min 91 % 17 /min 98.6 [degF] 120/70 mm[Hg] Jordana Dempsey MA [facility] 5 14:39:33 Date Recorded Body height Body mass index (BMI) Body weight Heart rate Oxygen saturation Inhaled oxygen flow rate Respiratory rate Systolic And Diastolic Provider Name and Address Organization Details Last Updated DateTime 5 160.02 cm 17.6 kg/m2 19251.7 4 g 101 /min 93 % 2 L/min 20 /min 110/70 mm[Hg] KIMBERLI SALDANA Attn: Narendra nixon,[address] [facility], [place], [address], [facility] 5 09:19:42 Social History Question Answer Notes LastModified by Organizat ion Details LastModified Time Tobacco Smoking Status Former Smoker Quit smoking in 10/2021 Chiqui Barahona LPN null, [facility] 06/25/2022 10:53:32 Do You Have An Advance [...] Information not available 03/20/2022 HIV Dx By [facility] No Informatio n not available 03/14/2025 RW HIV Risk Counseling #1 03/14/2025 Information not available 03/14/2025 RW HIV QI Project No Information not available 03/14/2025 RW Dental Provider None Information not available 03/14/2025 Do You Feel Physically And Emotionally Safe In Your Neighborhood Or Other Public Places? 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 No [email or web address] Information not available 12/08/2022 What [...] anxious, or unable to sleep at night)? [id number] Information not available 03/20/2022 Family History Relationship [...] Eating Disorder N Anemia N Heart Attack ([place]) N Diabetes N Anxiety Disorder N Muscle, [...] [facility] 04/14/2024 12:17:23 Pneumococcal conjugate PCV20, polysaccharide KGS098 conjugate, adjuvant, PF 2 completed Mimi Edouard RMA null, [place] - [facility] 04/14/2024 12:17:23 pneumococcal polysaccharide PPV23 9 completed Mimi Edouard RMA [place] [facility] 04/14/2024 12:17:23 Tdap 5 completed Vaishali Clifford [place], [place] [facility] 03/14/2025 13:55:16 HepB-CpG 5 jadyn Clifford [place], [place] [facility] 04/24/2025 16:44:30 Past Encounters Encounter ID Performer Location Encounter Start Date Encounter Closed Date Diagnosis/Indication Diagnosis SNOMED-CT Code Diagnosis ICD10 Code Diagnosis IMO Codes Diagnosis Note [id number] Nitin gracia MD [facility] [address] [place] [address] 03/20/2022 10:38:00 03/24/2022 09:14:28 Chronic obstructive pulmonary disease 98552332 J44.9 quit smoking 2 months ago1/2 ppd since age 7not controlled with symbicortu sing neb every 6 hours and albuterol inhaler dailyc/o productive cough and SOBPEx- nl, lungs CTABtrial LAMAPFTsLD CTrefer to pulm Human immunodeficiency virus infection 62765488 B20 diagnosed 20 yrs ago, states her levels are undetecta bleon truvada, prezista, and ritonavirp t of Dr. Franco, moved to [facility] to establish with infectious disease provider Adult heal th examination 389451838 Z00.00 hospitaliz ed x3 days at [place] for hypokalemi a and acute COPD exacerbati onput on IV potassiumc /o leg cramping and SOB, eating bananaswil l re-check labs today to see if need to start PO potassium Depression screening 171 888124 Z13.31 PHQ 3 Cavernous hemangioma of brain 036475628 D18.02 1994- half of her body went numb due to brain bleedingha s not seen neurology in years, unknown last imaging studyrefer to neuro to establish [id number] Nitin gracia MD [facility] [address] [place] [address] 04/21/2022 15:26:41 04/22/2022 12:53:49 Chronic obstructive pulmonary disease 20918484 J44.9 04/21/22:c/ o worsening cough with incruse powder, difficulty swallowing up all night coughingus ing neb and albuterol TIDPFTs were scheduled this AM, but was advised to re-schedul e due to persistent coughO2 93%PEx- mild rhonchi to bilateral lower lobessched uled appt [facility] w/ Marielena Mroeno [facility] DEPARTMENT [facility] on 04/30/22 @ 9:45 AMtrial spiriva w/o [...] CTrefer to pulm Cavernous hemangioma of brain 031238324 D18.02 04/21/22:pr inted off referral and encouraged pt to call to schedule appt 03/20/22:19 95- half of her body went numb due to brain bleedingha s not seen neurology in years, unknown last imaging studyrefer to neuro to establish Human immunodeficiency virus infection 11284832 B20 04/21/22:pr inted off referral and encouraged pt to call to schedule appt 03/20/22:di agnosed 20 yrs ago, states her levels are undetecta bleon truvada, prezista, and ritonavirp t of Dr. Franco, moved to [facility] to establish with infectious disease provider Screening for malignant neoplasm of breast 127117691 Z12.39 due for mammo [id number] Bass[facility] [address] [address] 06/25/2022 10:45:56 06/25/2022 14:00:18 Chronic obstructive pulmonary disease 04232355 J44.9 Stable on Symbicort 160 mcg as maintenanc eContinue MDI, albuterol as needed, duonebsPFT , 6 min walkWill check AATEchoove rnight oximetry on room air Human immunodeficiency virus infection 17905544 B20 Taking truvada, prezista, and ritonavir Body mass index less than 20 984701295 Z68.1 Nicotine d ependence in remission 315506759 F17.201 stopped smoking mok ing for 55 years, 1 ppd - 57 PYHWill order LDCT, lung cancer screening. Discussed risk/benef its, importance of annual screening adherence, and smoking cessation. [id number] Nitin gracia MD [facility] [address] [place] [address] 07/13/2022 10:05:38 07/14/2022 16:26:46 Chronic obstructive pulmonary disease 60199238 J44.9 07/13/22:e nico gracia today, see abovesaw [...] lobessched uled appt [facility] w/ Marielena Moreno ART DEPARTMENT HEAD on 04/30/22 @ 9:45 AMtrial spiriva w/o [...] CTrefer to pulm Candidiasis of mouth 797 20446 B37.0 due to symbicorto ral nystatin mouth wash Elevated blood-pressure reading without diagnosis of hypertension 093208654 R03.0 150/80 e9enswhf at [facility], 150s/80sst art losartan 25advised to check BP at home, goal BP <130/80, f/u with BP log in 1 wk Acute exac erbation of chronic obstructive pulmonary disease 348260475 J44.1 c/o productive cough with sputum x3 [...] to liquid form Pain in right arm 496757 [address] 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 I have recommende d referral to the elbow specialist at [place] as this is a very unusual and difficult case and I have no personal experience with this type of surgery.Ad dendum: Patient called on 07/03/2022 concerned that she would not be able to be seen until August at [place]. as it is possible that her exacerbati [...] We will order MRI without gadolinium . [id number] Bassam Salas MD [facility] [address] [address] 12/08/2022 14:05:32 12/09/2022 11:30:12 Chronic obstructive pulmonary disease 20329632 J44.9 StableSymb icort 160 mcg as maintenanc eContinue I, albuterol as needed, duonebsove rnight oximetry on room air Nicotine d ependence in remission 942479827 F17.201 stopped smoking mok ing for 55 years, 1 ppd - 57 PYHWill re-order LDCT, lung cancer screening ordered prior and approved, not completed. Discussed risk/benef its, importance of annual screening adherence, and smoking cessation. Human immunodeficiency virus infection 54821970 B20 Taking truvada, prezista, and ritonavir Body mass index less than 20 545132631 Z68.1 [id number] MARIELENA MORENO NP [facility] [address] [address] 02/16/2023 14:45:29 02/17/2023 07:19:09 Chronic obstructive pulmonary disease 18849905 J44.9 StableSymb icort 160 mcg and spiriva respimatCo ntinue MDI, albuterol as needed, duonebs Nicotine d ependence in remission 122720548 F17.201 stopped smoking mok ing for 55 years, 1 ppd - 57 PYH Will re-order LDCT, lung cancer screening ordered prior and approved, not completed. Discussed risk/benef its, importance of annual screening adherence, and smoking cessation. Human immunodeficiency virus infection 65662389 B20 Taking truvada, prezista, and ritonavir Body mass index less than 20 352664675 Z68.1 Dependence on nocturnal oxygen therapy 8616656041 9108 Z99.81 increase to 2L/min O2 with sleepWill repeat oximetry study on 2l/min [id number] KIMBERLI SALDANA [facility] [address] [place] [address] 10/21/2023 12:28:56 10/22/2023 13:00:02 Chronic obstructive pulmonary disease 02820075 J44.9 10/21/23: 08/2022- PFT and 6 Minute [...] lobessched uled appt [facility] w/ Marielena Moreno ART DEPARTMENT HEAD on 04/30/22 @ 9:45 AMtrial spiriva w/o [...] CTrefer to pulm Human immunodeficiency virus infection 40322152 B20 10/21/23: taking HIV medication needs new HIV referral, sent to Dr. Solorzano npt declined labs today 04/21/22:pr inted off referral and encouraged pt to call to schedule appt 03/20/22:di agnosed 20 yrs ago, states her levels are undetecta bleon truvada, prezista, and ritonavirp t of Dr. Franco, moved to [facility] to establish with infectious disease provider Acute exac erbation of chronic obstructive pulmonary disease 072492625 J44.1 10/21/23:pr oductive cough with yellow sputum [...] prezista, changed to liquid form Essential hypertension 79930225 I10 BP 132/60refi l losartan 25 Tobacco de pendence in remission 279276676 F17.201 quit smoking 01/2022, 1/2 ppd since age 7ordered LDCT scanf/u in 1 mo Depression screening 171 671823 Z13.31 PHQ 0 [id number] Bassam Salas MD [facility] [address] [place] [address] 03/15/2024 11:19:56 03/27/2024 12:40:30 Chronic obstructive pulmonary disease 99127427 J44.9 symbicort/ spirivaMDI teachingLD CT Chronic cough 59326760 R 05.3 Nicotine dependence 5629 4008 F17.644 [id number] Nitin gracia MD [facility] [address] [place] [address] 03/30/2024 16:45:55 03/30/2024 17:29:12 Underweight 417530876 R63.6 routine labs- will complete outpatient or come back for nurse visitBMI 16.2severe emphysema Human immunodeficiency virus infection 45800246 B20 03/30/24: needs new referral to ID 10/21/23: taking HIV medication needs new HIV referral, sent to Dr. Solorzano npt declined labs today 04/21/22:pr inted off referral and encouraged pt to call to schedule appt 03/20/22:di agnosed 20 yrs ago, states her levels are undetecta bleon truvada, prezista, and ritonavirp t of Dr. Franco, moved to [facility] to establish with infectious disease provider Screening for malignant neoplasm of breast 606573047 Z12.39 declines Screening for malignant neoplasm of colon 152502342 Z12.11 declines colonoscop y, will send Cologuard Pulmonary emphysema 8743 3001 J43.9 found on LDCT 01/2024OV with Dr. Salas 03/15/24- Doing well on symbicort 160 and spiriva respimatde nies increased SOB or coughdenie s wheezingha s not required nebsdue for repeat PFTs Excessive thirst 9898944 7 R63.1 x3 monthsoccu rs once a [...] to r/o hypoglycem ia Depression screening 171 456608 Z13.31 PHQ 0 [id number] Bassam Salas MD [facility] [address] [place] [address] 06/14/2024 13:50:31 06/14/2024 14:23:20 Chronic obstructive pulmonary disease 26348524 J44.9 symbicort/ spirivaMDI teaching Chronic cough 19580622 R 05.3 Nicotine dependence 5629 4008 F17.178 [id number] Bassam Salas MD [facility] [address] [place] [address] 02/21/2025 15:22:53 02/21/2025 16:01:19 Chronic obstructive pulmonary disease 63756520 J44.9 symbicort/ spirivaMDI teachingpr ednisone at 10 mg Chronic bronchitis 36136 004 J42 286522645 symbicort/ spirivaMDI teaching Essential hypertension 43636243 I10 80744 home meds [id number] Cinda Go MD [facility] (Adult Med) [address] [place] [address] 03/14/2025 10:30:02 03/15/2025 09:49:31 Requires tetanus and diphtheria vaccination 594606320 Z23 7730155 Human immunodeficiency virus infection 24155013 B20 266460 Screening mammography 24 687659 Z12.31 3775672 Blurring o f visual image 050343619 H53.8 457932 [id number] Cinda Go MD [facility] (Adult Med) [address] [place] [address] 04/24/2025 14:30:14 04/25/2025 13:27:40 Human immunodeficiency virus infection 85558753 B20 Labs todayConti nue the current regimen (Norvir/Tr uvada/Maximus ista)She may be an excellent candidate for a simpler regimen when she is suppressed Note from Labs 03/14/2025 HIV VL 71,000, CD4 219Restart Prezista, Norvir and Truvada. I have spoken to Ms Zavala and discussed her lab results with her, the side effects were discussed including but not limited to renal and MSK issues.She may be a candidate for Symtuza, after her Hep B serology is checked. History of pneumonia 161 992638 Z87.01 [id number] Bilateral PNA 04/12/2025F ollow up CXR 06/01/2025 Candidiasis of mouth 797 75271 B37.0 0497356 Hepatitis B non-immune 696041262 Z78.9 03360321 Decreased body mass index 9370325 Z68.6 0375520803 Underweight 441544854 R6 3.6 [id number] Jason Salinas MD [facility] [address] [place] [address] 05/09/2025 17:04:22 05/09/2025 17:32:52 Pulmonary emphysema 44374965 J43.9 05/09/25: started oxygen 2 L O2 on 04/11/[address] Mccain ing up dark stuff againdoub le pneumonia, admitted to [place] mid April, hospital notesreque sting new Pulm 03/30/24: found on LDCT 01/2024OV with Dr. Salas 03/15/24- Doing well on symbicort 160 and spiriva respimatde nies increased SOB or coughdenie s wheezingha s not required nebsdue for repeat PFTs History of pneumonia 161 152561 Z87.01 [id number] repeat CXRdiagnos ed mid April and admitted to [place], hospital notes Screening for malignant neoplasm of breast 312753956 Z12.39 has orders for mammogram, encouraged to complete Screening for malignant neoplasm of colon 880549225 Z12.11 cologuard negative 06/2024, repeat 2026 Increased frequency of urination 968137488 R35.0 02285 drinks water and green teac/o lower back and lower pelvic painurine dip nl Human immunodeficiency virus infection 67258516 B20 145177 05/09/25: has establishe d with Dr. Go 03/30/24: needs new referral to ID 10/21/23: taking HIV medication needs new HIV referral, sent to Dr. Solorzano npt declined labs today 04/21/22:pr inted off referral and encouraged pt to call to schedule appt 03/20/22:di agnosed 20 yrs ago, states her levels are undetecta bleon truvada, prezista, and ritonavirp t of Dr. Franco, moved to [facility] to establish with infectious disease provider Depression screening 171 995605 Z13.31 8981356 PHQ 0 [id number] Jason Salinas MD [facility] [address] [place] [address] 07/25/2025 15:10:45 07/25/2025 15:44:50 Dysuria 37524297 R30.0 10958 Health Concerns Section Related Observation LastModified by Organization Detai ls LastModified Time None Recorded Concern Status LastModified by Organization Details LastModified Time None Recorded Advance Directives Directive N: Payers Insurance Date Sequence Insurance Name Policy Number Policy Lundberg Covered Member ID Lundberg Member ID Guarantor Name 08/12/2025 1 [id number] (MEDICAID HMO) [id number] Roxanne Zavala [id number] Roxanne Zavala 03/24/2022 1 *SELF PAY* Allen Zavala Notes Date Note Type Note Provider Name and Address Organization Details Recorded Time 5 text/html ROS as noted in the HPI f/u for COPDCOPD, tobacco use, HIV, prediabetes, cavernous hemangioma of brainDoing well on symbicort 160 and spiriva respimatdenies increased SOB or coughdenies wheezingPFT reviewed from 06/21/2024LDCT,reviewedsto pped smoking 10/2021uses nocturnal Y4tacdbsq in 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 She is not sexually active, but she has had oral candidiasis and worsening of the vision in the left eye, she apparently has history of cataracts. PMHX. COPD, HTN, HIV disease, Hypercholesterolemia. PCP Dr Johnstonulmonologist Dr Maritza Go MD Attn: Accounting,[address] [facility], [place], [address], [facility] 03/14/2025 14:10:47 5 text/html HIVReported by PatientHPIFor baseline labs, patient reportscd4:219andviral load:71,000. For constitutional, (+5lbs).ROS as noted in the [facility] HIV care. only I have been better, I was in the hospital with double PneumoniaI keep on getting Thrush Fully compliant with her HIV regimen and not sexually active. Admitted 04/12/2025 with Pneumonia, she is better and possibly completing her course of steroids.She complains another flare of her oral candidiasis. Cinda Go MD Attn: Accounting,[address] [facility], [place], [address], [facility] 04/24/2025 16:25:42 5 text/html ROS as noted in the HPI Patient presents for hospital follow-up. Last office visit was 03/2024. States that she was admitted to [facility] mid April due to double pneumonia. Patient started on oxygen per Dr. Salas at the end of April. Complains of feeling short of breath with exertion and coughing up dark stuff since discharge from hospital. Requesting new net fisher in [place]. KIMBERLI SALDANA Attn: Accounting,[address] [place], [address], [place] [facility] 05/10/2025 09:30:03 OBGyn Episode No OBEpisode recorded.
--- OUTSIDE RECORDS SUMMARY | 2025-09-19 18:32 | XMS_ITS | Clinical Summary ---
Author Organization [facility] Address [address] [place] [address] Phone Care Team Providers Care Jailkeeper Name Role Phone Unavailable Primary Care Provider Unavailabl e Allergies Active Allergy Reactions Criticality Noted Date Comments Meperidine Shortness of Breath/Wheezing High 025 Parker Rash Low 08/06/2025 Medications TIOTROPIUM BROMIDE INHALATION Take 2 Puffs by inhalation daily. Active DARUNAVIR ETHANOLATE ORAL Take 800 mg by mouth daily. Active emtricitabine- tenofovir, TDF, (TRUVADA) 200-300 mg Tablet Take 1 Tablet by mouth daily. Active RITONAVIR ORAL Take 100 mg by mouth daily. Active losartan (COZAAR) 25 mg tablet Take 25 mg by mouth daily. Active predniSONE (DELTASONE) 2.5 mg tablet Take 5 mg by mouth daily. Active melatonin 3 mg Tablet Take 2 Tablets (6 mg) by mouth nightly as needed for Insomnia. 08/15/20 25 Active sulfamethoxazo le-trimethopri m (BACTRIM) 400-80 mg tablet Starting 08/16, Take 1 Tablet by mouth daily. 30 Tablet 08/16/20 25 Active albuterol sulfate 90 mcg/Actuation inhaler Take 2 Puffs by inhalation every 4 hours as needed for Shortness of Breath or Wheezing. 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 30 Tablet 3 08/20/20 Active polyethylene glycol 3350 (MIRALAX) 17 gram/dose Powder Take 1 Scoop (17 Grams) by mouth daily for 7 days. Dissolve in 8 ounces of fluid and drink entire liquid 527 Gram 5 3:20 PM MUSEUM PREPARATOR 08/21/20 25 2024 Active fluticasone-um eclidinium-dorina anterol (TRELEGY ELLIPTA) 200-62.5-25 mcg Disk with Device Take 1 Puff by inhalation daily. 60 Each 1 09/07/20 Active predniSONE (DELTASONE) 20 mg tablet Take 2 Tablets daily with breakfast for 3 days, THEN 1.5 Tablets daily with breakfast for 3 days, THEN 1 Tablet daily with breakfast for 3 days, THEN 0.5 Tablet daily for 3 days. 15 Tablet 5 4:05 PM MUSEUM PREPARATOR 09/07/20 25 2024 Active Nebulizer Accessories Kit Use as needed for nebulizer 1 Kit 09/07/20 Active oxyCODONE (ROXICODONE) 5 mg tabletIndicati ons:ACP (advance care planning) Take 1 Tablet (5 mg) by mouth every 4 hours as needed for Pain. Max Daily Amount: 30 mg 20 Tablet 5 4:05 PM MUSEUM PREPARATOR 09/07/20 Active HYDROcodone-ac etaminophen (NORCO) 5-325 mg tabletIndicati ons:Post-op pain Take 1 Tablet by mouth every 4 hours as needed for Pain. Max Daily Amount: 6 Tablets 30 Tablet 09/16/20 25 2024 Active levoFLOXacin (LEVAQUIN) 500 mg tablet Take 1 Tablet (500 mg) by mouth daily. 7 Tablet 09/16/20 Active budesonide-for moteroL (SYMBICORT) 80-4.5 mcg/actuation HFA Aerosol Inhaler Take 2 Puffs by inhalation 2 times daily. 2024 Discontinued predniSONE (DELTASONE) 10 mg tablet Starting 08/16, Take 3 Tablets (30 mg) by mouth daily with breakfast for 1 day, THEN 2 Tablets (20 mg) daily with breakfast for 3 days, THEN 1 Tablet (10 mg) daily with breakfast for 3 days. 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 Take 8 mg (two tablets) by mouth in the morning on Day 2. Take 8 mg (two tablets) by mouth twice a day on Days 3-4 of each chemotherapy cycle. 12 Tablet 3 08/20/20 25 2024 Discontinued HYDROcodone-ac etaminophen (NORCO) 5-325 mg tabletIndicati ons:Post-op pain Take 1 Tablet by mouth every 4 hours as needed for Pain, Moderate. Max Daily Amount: 6 Tablets 10 Tablet 5 3:20 PM MUSEUM PREPARATOR 08/21/20 25 2024 Discontinued(R eorder) benzonatate (TESSALON) 200 mg capsule Take 1 Capsule (200 mg) by mouth 3 times daily for 7 days. 21 Capsule 5 3:20 PM MUSEUM PREPARATOR 08/29/20 25 2024 Discontinued HYDROcodone-ac etaminophen (NORCO) 5-325 mg tabletIndicati ons:Post-op pain Take 1 Tablet by mouth every 6 hours as needed for Pain, Moderate. Max Daily Amount: 4 Tablets 10 Tablet 5 4:05 PM MUSEUM PREPARATOR 09/03/20 25 2024 Discontinued(R eorder) benzonatate (TESSALON) 200 mg capsule Take 1 Capsule (200 mg) by mouth 3 times daily for 7 days. 21 Capsule 5 4:05 PM MUSEUM PREPARATOR 09/07/20 25 2024 Active Problems Problem Noted Date Diagnosed Date Goals of care, counseling/discussion 09/06/2025 Dyspnea 09/05/2025 History of pneumothorax 09/05/2025 Grief reaction 08/27/2025 Abnormal PET scan of head 08/23/2025 Overview (08/23/2025): Tongue uptake. Acute on chronic anemia 08/22/2025 Metastasis to bone 08/22/2025 Pneumothorax on left 08/21/2025 Assessment & Plan (08/21/2025 7:30 PM MUSEUM PREPARATOR): Xray x2 rev/int= large post procedure pneumo. [...] 08/12/2025 Assessment & Plan (08/21/2025 7:30 PM MUSEUM PREPARATOR): F/u oncology, no treatment planned here Port [...] 08/06/2025 Assessment & Plan (08/06/2025 4:20 PM MUSEUM PREPARATOR): Uploading osh CT Per records 3.3 cm R lung mass, new. 3.1 cm RML mass (seen 05/2025) Smoking hx Ddx: malignancy vs OI. Would benefit from bronch after treatment for acute resp failure Acute on chronic respiratory failure with hypoxia and hypercapnia 08/06/2025 Assessment & Plan (08/21/2025 7:30 PM MUSEUM PREPARATOR): Xray x2 rev/int= large post procedure pneumo. Then reduction with L ct placement Severe- large pneumo needing CT, severe pain, complicating comorbids Morphine IV prn Monitor for reaction, side effects, vitals Surgery is primary Rpt cxr in am Check cbc, cmp Consider toradol after labs IS Assessment & Plan (08/06/2025 9:09 PM MUSEUM PREPARATOR): Baseline 3L Hx copd/emphysema Sats 83% on [...] 08/06/2025 Assessment & Plan (08/06/2025 9:09 PM MUSEUM PREPARATOR): Baseline 3L Hx copd/emphysema Sats 83% on [...] 08/06/2025 Assessment & Plan (08/21/2025 7:30 PM MUSEUM PREPARATOR): 3L at home Chronic pred use, 5 mg daily, just finished a taper Cont ICS/LABA, cont LAMA, cont SHERRI prn Assessment & Plan (08/06/2025 9:09 PM MUSEUM PREPARATOR): Baseline 3L Hx copd/emphysema Sats 83% on [...] 08/06/2025 Assessment & Plan (08/06/2025 9:09 PM MUSEUM PREPARATOR): Baseline 3L Hx copd/emphysema Sats 83% on [...] 12/2024 Assessment & Plan (08/21/2025 7:30 PM MUSEUM PREPARATOR): On ART Cont bactirm ppx CD4 48 08/16/25 Assessment & Plan (08/06/2025 4:20 PM MUSEUM PREPARATOR): Cont ART, see med list Check cd4, VL Hypertension 08/06/2025 Assessment & Plan (08/21/2025 7:30 PM MUSEUM PREPARATOR): Hold losartan Reassess in am Assessment & Plan (08/06/2025 4:20 PM MUSEUM PREPARATOR): Hold home losartan Chronic combined systolic and diastolic heart fa ilure 08/06/2025 Assessment & Plan (08/06/2025 4:20 PM MUSEUM PREPARATOR): Per OSH chart No crackles or edema currently No acute intervention needed. Consider reassessment of LVEF prior to dc. Tendinopathy of right biceps tendon 08/06/2025 Assessment & Plan (08/06/2025 4:20 PM MUSEUM PREPARATOR): Hx noted Current chronic use of systemic steroids 025 Assessment & Plan (08/21/2025 7:30 PM MUSEUM PREPARATOR): 3L at home Chronic pred use, 5 mg daily, just finished a taper Cont ICS/LABA, cont LAMA, cont SHERRI prn Assessment & Plan (08/06/2025 9:09 PM MUSEUM PREPARATOR): Baseline 3L Hx copd/emphysema Sats 83% on [...] 08/06/2025 Assessment & Plan (08/06/2025 9:09 PM MUSEUM PREPARATOR): Baseline 3L Hx copd/emphysema Sats 83% on [...] 08/06/2025 Assessment & Plan (08/06/2025 4:20 PM MUSEUM PREPARATOR): Mild Volume down or euvolemic Na 132 @ OSH Repeat BMP Sepsis 08/06/2025 Assessment & Plan (08/06/2025 4:20 PM MUSEUM PREPARATOR): RR 24, wbc 21 Was tachy as [...] pneumonia) Assessment & Plan (08/06/2025 4:20 PM MUSEUM PREPARATOR): RR 24, wbc 21 Was tachy as OSH. Treated with BiPAP, neds, epi, steroids Reported fever 11/ LA 2.2 @ OSH She has respiratory [...] 08/06/2025 Assessment & Plan (08/06/2025 4:20 PM MUSEUM PREPARATOR): RR 24, wbc 21 Was tachy as [...] 08/06/2025 Assessment & Plan (08/06/2025 4:20 PM MUSEUM PREPARATOR): Check A1c HDSSI SADIE (obstructive sleep apnea) 08/06/2025 Encounters Date Type Department Care Team Description 09/19/2025 Chart Note [facility] On[facility] Patient Navigation [address] [place] [address] Felisa Hyatt, RN Nurse Navigation (Follow up) 09/17/2025 Chart Note [facility] Patient Navigation [address] [place] [address] Felisa Hyatt, RN Nurse Navigation (Follow up) 09/17/2025 Telephone [facility] Pulmonology [facility] [address] [place] [phone] Hamzah Butt MD Hospital Follow Up 09/17/2025 Telephone [facility] Oncology and Hematology [facility] [address] [place] [address] Dimple Neff MD coordination of care and refills 09/16/2025 Orders Only [facility] formerly [facility] Hematology [facility] [address] [place] [address] Dimple Neff MD Post-op pain 09/12/2025 Chart Note [facility] Patient Navigation [address] [place] [address] Neyda Mitchell, PENNY Nurse Navigation (Follow up) 09/11/2025 External Device Data STL ABSTRACTION Provider, Abstract 09/11/2025 External Device Data STL ABSTRACTION Provider, Abstract 09/10/2025 Chart Note [facility] Patient Navigation [address] [place] [address] Neyda Mitchell, RN Nurse Navigation (Follow up) 09/04/2025 6:22 PM MUSEUM PREPARATOR - 09/07/2025 4:30 PM MUSEUM PREPARATOR Hospital Encounter [facility] [address] [place] [address] Mitch Lockwood DO Pfeiffer, Paul Rei, DO Sangani, Vikram, MD Weitzel, Laura Jean, MD Hawatmeh, Shady, MD Dyspnea Discharge Disposition: Home or Self Care 09/04/2025 Travel 09/04/2025 Chart Note [facility] Patient Navigation [address] [place] [address] Felisa Hyatt, PENNY Nurse Navigation (Follow up) 09/03/2025 Telephone [facility] [address] [place] [address] Marge Richardson PA-C peer to peer 09/03/2025 Orders Only [facility] Surgical Spec [place] [address] [facility] [address] [place] [address] Balaji Win MD Post-op pain 09/03/2025 Chart Note [facility] Patient Navigation [address] [place] [address] Felisa Hyatt, RN Nurse Navigation (Follow up) 08/29/2025 Orders Only [facility] [address] [facility] [address] [place] [address] Keshia Noonan RN Cancer, metastatic to bone (CMS/HCC) (Primary Dx); Metastasis to liver (CMS/HCC); NSCLC of right middle lobe (CMS/HCC); Cancer, metastatic to liver (CMS/HCC); Mediastinal lymphadenopathy; Abnormal CT of the abdomen; Abnormal CT of the chest 08/27/2025 Abstract [facility] [address] [facility] [place] [address] Dimple Neff MD 08/23/2025 Chart Note [facility] Patient Navigation [address] [place] [address] Felisa Hyatt, RN Nurse Navigation (Follow up) 08/21/2025 1:06 PM MUSEUM PREPARATOR Anesthesia Event [facility] Operating Room [address] [place] [address] Mimi Lawler MD Arnold, Donald E, MD 08/21/2025 12:46 PM MUSEUM PREPARATOR - 08/21/2025 1:26 PM MUSEUM PREPARATOR Surgery [facility] Operating Room [address] [place] [address] Balaji Win MD CENTRAL VENOUS ACCESS INSERTION WITH PORT 08/21/2025 11:48 AM MUSEUM PREPARATOR - 08/29/2025 3:01 PM MUSEUM PREPARATOR Hospital Encounter [facility] Telemetry [address] [place] [phone] Balaji Win MD Williams, Timothy John, MD Padgett, Sabrina, MD Araujo, Tiago, MD Pneumothorax on left Discharge Disposition: Home or Self Care 08/21/2025 Travel 08/20/2025 Chart Note [facility] On[facility] Patient Navigation [address] [place] [address] Felisa Hyatt, RN Nurse Navigation (Follow up) 08/20/2025 Telephone [facility] Surgical Spec [place] [address] [facility] [address] [place] [address] Balaji Win MD Scheduled Port Placement 08/20/2025 Orders Only [facility] Oncology and Hematology [facility] [address] [address] [place] [phone] Dimple Neff MD Cancer, metastatic to bone (CMS/HCC) (Primary Dx); Metastasis to liver (CMS/HCC); NSCLC of right middle lobe (CMS/HCC) 08/17/2025 10:07 AM MUSEUM PREPARATOR - 08/17/2025 11:59 PM MUSEUM PREPARATOR Hospital Encounter [facility] Imaging Services [facility] [address] [place] [address] Dimple Neff MD Discharge Disposition: Home or Self Care 08/17/2025 Telephone [facility] Surgical Spec [place] [address] [facility] [address] [place] [address] Balaji Win MD surgery arrival time 08/16/2025 Chart Note [facility] On[facility] Patient Navigation [address] [place] [address] Felisa Hyatt, RN Nurse Navigation (Establish care) 08/16/2025 Orders Only [facility] Oncology [facility] [address] [facility] [address] [place] [address] Dimple Neff MD NSCLC of right middle lobe (CMS/HCC) (Primary Dx); Cancer, metastatic to liver (CMS/HCC); Mediastinal lymphadenopathy; Abnormal CT of the abdomen; Abnormal CT of the chest 08/16/2025 Prep for Surgery [facility] Surgical Spec [place] [address] [facility] [address] [place] [address] Cara Workman RN NSCLC of right middle lobe (CMS/HCC) (Primary Dx); Metastasis to liver (CMS/HCC); Lung mass 08/16/2025 Telephone [facility] Surgical Spec [place] [address] [facility] [address] [place] [address] Baljai Win MD Surgery 08/14/2025 External Device Data STL ABSTRACTION Provider, Abstract 08/14/2025 External Device Data [place] ABSTRACTION Provider, Abstract 08/14/2025 External Device Data [place] ABSTRACTION Provider, Abstract 08/13/2025 Orders Only [facility] Oncology [facility] [address] [facility] [address] [place] [address] Dimple Neff MD NSCLC of right middle lobe (CMS/HCC) (Primary Dx) 08/09/2025 Abstract [facility]FECTIOUS DISE[facility] [place] [facility] [address] [place] [address] Mal Espino MD 08/08/2025 External Device Data [place] ABSTRACTION Provider, Abstract 08/07/2025 External Device Data [place] ABSTRACTION Provider, Abstract 08/07/2025 External Device Data [place] ABSTRACTION Provider, Abstract 08/07/2025 External Device Data [place] ABSTRACTION Provider, Abstract 08/06/2025 2:41 PM MUSEUM PREPARATOR - 08/15/2025 5:40 PM MUSEUM PREPARATOR Hospital Encounter [facility] On[facility] [address] [place] [address] Rhonda Valerio MD Williams, Timothy John, MD Garri, Mikael, MD Hoos, Cullen, MD Lung mass Discharge Disposition: Home or Self Care 08/06/2025 Travel from Last 3 Months Social History Tobacco Use Types Packs/Day Years [...] worry about transportation for future doctor visits, 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 No 2024 Housing Stability Answer [...] Sign Reading Time Taken Comments Blood Pressure 130/81 09/07/2025 8:52 AM MUSEUM PREPARATOR Pulse 102 09/07/2025 8:52 AM MUSEUM PREPARATOR Temperature 36.7 C (98.1 F) 09/07/2025 8:52 AM MUSEUM PREPARATOR Respiratory Rate 18 09/07/2025 8:52 AM MUSEUM PREPARATOR Oxygen Saturation 93% 09/07/2025 8:52 AM MUSEUM PREPARATOR Inhaled Oxygen Concentration - - Weight 48 kg (105 lb 12.8 oz) 09/07/2025 4:17 AM MUSEUM PREPARATOR Height 160 cm (5' 3) 09/04/2025 5:25 PM MUSEUM PREPARATOR Body Mass Index 18.74 09/04/2025 5:25 PM MUSEUM PREPARATOR Plan of Treatment Upcoming Encounters Date Type Department Care Team (Late st Contact Info) Description 10/03/2025 2:45 PM MUSEUM PREPARATOR Office Visit [facility] Oncology and Hematology [facility] [address] [place] [phone] Dimple Neff MD [address] [place] [address] Health Maintenance Due Date Last Done Comments HPV/Cotest (21-29) 1983 CERVICAL CANCER SCREENING 01/02/1992 HPV/Cotest (30-65) 01/02/1992 PAP SMEAR 01/02/1992 BREAST CANCER SCREENING 2002 COLORECTAL SCREENING 2007 Colorectal Cancer Screening 2007 FIT-DNA Q 3 years 2007 FIT/FOBT Q 1 year 2007 Flex Sig/CT Colonography Q 5 years 2007 RSV VACCINE (60+ or ) (1 - Risk 50-74 years 1-dose series) 01/02/2012 INFLUENZA VACCINE (#1) 2025 COVID-19 Vaccine (2024-2 6 season) 2025 12/08/2021, 05/21/2021, 12/29/2020, Additional history exists DTAP/TDAP/TD VACCINES (2 - T d or Tdap) 03/14/2035 03/14/2025 ZOSTER VACCINE Completed 04/13/2018, 02/07/2018 Medical Devices Implanted Type Area Rehab Manager Device Identifier Shelf Expiration Date Model / Serial / Lot Port Powerport Clearvue 8fr Mri [id number] - [id number] Implanted:Qty : 1 on 08/21/2025 by Balaji Win MD at [facility] Port Left: Chest BARD MADDIE VASC [id number] 11/03/2026 [id number] / / [id number] Procedures Procedure Name Priority Date/Time Associated Diagnosis Comments TELEMETRY REPORT 09/11/2025 7:44 AM MUSEUM PREPARATOR TELEMETRY REPORT 09/06/2025 1:52 PM MUSEUM PREPARATOR C-REACTIVE PROTEIN Routine 09/05/2025 9: 04 PM MUSEUM PREPARATOR PROCALCITONIN Routine 09/05/2025 9:04 PM MUSEUM PREPARATOR PNEUMONIA PATHOGEN PCR PANEL Routine 09/05/2025 11:40 AM MUSEUM PREPARATOR SPUTUM CULTURE WITH GRAM STAIN Routine 09/05/2025 11:39 AM MUSEUM PREPARATOR RT ASSESS AND TREAT Routine 09/05/2025 2 :00 AM MUSEUM PREPARATOR TROPONIN 6 HR, 5TH GEN Timed Study 5 1:59 AM MUSEUM PREPARATOR CTA CHEST W AND/OR WO CONTRAST Stat 09/04/2025 10:59 PM MUSEUM PREPARATOR XR CHEST PA OR AP 1 VW Stat 9:41 PM MUSEUM PREPARATOR TROPONIN 2 HR, 5TH GEN Timed Study 5 9:01 PM MUSEUM PREPARATOR BLOOD GAS VENOUS Stat 09/04/2025 6:55 PM MUSEUM PREPARATOR TROPONIN BASELINE, 5TH GEN Stat 09/04/2025 6:47 PM MUSEUM PREPARATOR BRAIN NATRIURETIC PEPTIDE, BNP OR PROBNP Stat 09/04/2025 6:47 PM MUSEUM PREPARATOR BASIC METABOLIC PANEL Stat 09/04/2025 6:47 PM MUSEUM PREPARATOR CBC WITH DIFFERENTIAL Stat 09/04/2025 6:47 PM MUSEUM PREPARATOR RESPIRATORY PATHOGEN PCR PANEL Stat 09/04/2025 6:47 PM MUSEUM PREPARATOR EKG 12-LEAD Stat 09/04/2025 5:32 PM MUSEUM PREPARATOR CRITICAL CARE Routine 09/04/2025 5:05 PM MUSEUM PREPARATOR TELEMETRY REPORT 08/29/2025 2:50 PM MUSEUM PREPARATOR XR CHEST PA OR AP 1 VW Timed Study 1:05 PM MUSEUM PREPARATOR COMPREHENSIVE METABOLIC PANEL Routine 08/29/2025 2:11 AM MUSEUM PREPARATOR CBC WITH DIFFERENTIAL Routine 08/29/2025 2:11 AM MUSEUM PREPARATOR XR CHEST PA OR AP 1 VW Stat 4:48 PM MUSEUM PREPARATOR COMPREHENSIVE METABOLIC PANEL Routine 08/28/2025 12:40 AM MUSEUM PREPARATOR CBC WITH DIFFERENTIAL Routine 08/28/2025 12:40 AM MUSEUM PREPARATOR TELEMETRY REPORT 08/27/2025 1:25 PM MUSEUM PREPARATOR XR CHEST PA OR AP 1 VW Routine 12:18 PM MUSEUM PREPARATOR XR CHEST PA OR AP 1 VW Stat 12:08 PM MUSEUM PREPARATOR COMPREHENSIVE METABOLIC PANEL Routine 08/27/2025 1:27 AM MUSEUM PREPARATOR CBC WITH DIFFERENTIAL Routine 08/27/2025 1:[address] CHEST WO CONTRAST Routine 08/26/2025 9:28 AM MUSEUM PREPARATOR COMPREHENSIVE METABOLIC PANEL Routine 08/26/2025 1:52 AM MUSEUM PREPARATOR CBC WITH DIFFERENTIAL Routine 08/26/2025 1:52 AM MUSEUM PREPARATOR XR CHEST PA AND LATERAL 2 VW Routine 08/25/2025 3:36 PM MUSEUM PREPARATOR COMPREHENSIVE METABOLIC PANEL Routine 08/25/2025 12:45 AM MUSEUM PREPARATOR CBC WITH DIFFERENTIAL Routine 08/25/2025 12:45 AM MUSEUM PREPARATOR COMPREHENSIVE METABOLIC PANEL Routine 08/24/2025 3:41 AM MUSEUM PREPARATOR CBC WITH DIFFERENTIAL Routine 08/24/2025 3:41 AM MUSEUM PREPARATOR XR CHEST PA OR AP 1 VW Timed Study 1:59 PM MUSEUM PREPARATOR COMPREHENSIVE METABOLIC PANEL Routine 08/23/2025 11:01 AM MUSEUM PREPARATOR CBC WITH DIFFERENTIAL Routine 08/23/2025 11:01 AM MUSEUM PREPARATOR VITAMIN B12 AND FOLATE Routine 12:38 PM MUSEUM PREPARATOR XR CHEST PA OR AP 1 VW Routine 6:24 AM MUSEUM PREPARATOR IRON, TIBC, AND PERCENT SATURATION Routine 08/21/2025 8:25 PM MUSEUM PREPARATOR COMPREHENSIVE METABOLIC PANEL Routine 08/21/2025 8:25 PM MUSEUM PREPARATOR CBC WITH DIFFERENTIAL Routine 08/21/2025 8:25 PM MUSEUM PREPARATOR XR CHEST PA OR AP 1 VW Stat 5:20 PM MUSEUM PREPARATOR XR FLUORO CENTRAL VENOUS ACCESS Routine 08/21/2025 3:30 PM MUSEUM PREPARATOR XR CHEST PA OR AP 1 VW Pending Discharge 08/21/2025 2:50 PM MUSEUM PREPARATOR AR ANES INSERT ENDOTRACHEAL AIRWAY Routine 08/21/2025 1:20 PM MUSEUM PREPARATOR AR INSJ TUNNELED CTR VAD W/SUBQ PORT AGE 5 YR/> 08/21/2025 12:46 PM MUSEUM PREPARATOR NSCLC of right middle lobe (CMS/HCC) POC GLUCOSE Routine 08/21/2025 12:27 PM MUSEUM PREPARATOR TELEMETRY REPORT 08/17/2025 4:27 PM MUSEUM PREPARATOR PET TUMOR OR INFECTION IMG W CT SKB MDTH Stat 08/17/2025 11:44 AM MUSEUM PREPARATOR Cancer, metastatic to liver (CMS/HCC) NSCLC of right middle lobe (CMS/HCC) Mediastinal lymphadenopathy Abnormal CT of the abdomen Abnormal CT of the chest POC GLUCOSE Routine 08/17/2025 10:20 AM MUSEUM PREPARATOR POC GLUCOSE Routine 08/15/2025 4:16 PM MUSEUM PREPARATOR POC GLUCOSE Routine 08/15/2025 12:42 PM MUSEUM PREPARATOR POC GLUCOSE Routine 08/15/2025 7:24 AM MUSEUM PREPARATOR POC GLUCOSE Routine 08/14/2025 10:04 PM MUSEUM PREPARATOR POC GLUCOSE Routine 08/14/2025 5:53 PM MUSEUM PREPARATOR POC GLUCOSE Routine 08/14/2025 11:59 AM MUSEUM PREPARATOR BASIC METABOLIC PANEL Routine 08/14/2025 9:17 AM MUSEUM PREPARATOR CBC WITHOUT DIFFERENTIAL Routine 08/14/2025 9:17 AM MUSEUM PREPARATOR POC GLUCOSE Routine 08/14/2025 8:33 AM MUSEUM PREPARATOR TEMPUS XT DNA AND RNA SOLID TUMOR Routine 08/13/2025 3:00 PM MUSEUM PREPARATOR NSCLC of right middle lobe (CMS/HCC) TEMPUS XT DNA AND RNA Routine 08/13/2025 3:00 PM MUSEUM PREPARATOR NSCLC of right middle lobe (CMS/HCC) TEMPUS XT NORMAL BLOOD Routine 3:00 PM MUSEUM PREPARATOR NSCLC of right middle lobe (CMS/HCC) POC GLUCOSE Routine 08/13/2025 12:20 PM MUSEUM PREPARATOR ECHOCARDIOGRAM W/ CONTRAST AGENT Routine 08/13/2025 11:27 AM MUSEUM PREPARATOR US VENOUS DOPPLER LEG BILATERAL Routine 08/13/2025 9:57 AM MUSEUM PREPARATOR POC GLUCOSE Routine 08/12/2025 3:25 PM MUSEUM PREPARATOR POC GLUCOSE Routine 08/12/2025 11:57 AM MUSEUM PREPARATOR BRAIN NATRIURETIC PEPTIDE, BNP OR PROBNP Routine 08/12/2025 8:29 AM MUSEUM PREPARATOR BASIC METABOLIC PANEL Stat 08/12/2025 8:29 AM MUSEUM PREPARATOR POC GLUCOSE Routine 08/12/2025 7:45 AM MUSEUM PREPARATOR POC GLUCOSE Routine 08/11/2025 9:20 PM MUSEUM PREPARATOR MRI BRAIN W WO CONTRAST Routine 08/11/2025 5:50 PM MUSEUM PREPARATOR POC GLUCOSE Routine 08/11/2025 4:[address] ABDOMEN PELVIS W WO CONTRAST Routine 08/11/2025 3:07 PM MUSEUM PREPARATOR POC GLUCOSE Routine 08/11/2025 12:37 PM MUSEUM PREPARATOR POC GLUCOSE Routine 08/11/2025 9:03 AM MUSEUM PREPARATOR COMPREHENSIVE METABOLIC PANEL Stat 08/11/2025 8:49 AM MUSEUM PREPARATOR CBC WITH DIFFERENTIAL Stat 08/11/2025 8:49 AM MUSEUM PREPARATOR POC GLUCOSE Routine 08/10/2025 9:31 PM MUSEUM PREPARATOR POC GLUCOSE Routine 08/10/2025 5:43 PM MUSEUM PREPARATOR CBC WITH DIFFERENTIAL Routine 08/10/2025 3:54 PM MUSEUM PREPARATOR BASIC METABOLIC PANEL Routine 08/10/2025 2:43 PM MUSEUM PREPARATOR POC GLUCOSE Routine 08/10/2025 12:25 PM MUSEUM PREPARATOR POC GLUCOSE Routine 08/10/2025 7:59 AM MUSEUM PREPARATOR POC GLUCOSE Routine 08/09/2025 10:28 PM MUSEUM PREPARATOR POC GLUCOSE Routine 08/09/2025 6:25 PM MUSEUM PREPARATOR POC GLUCOSE Routine 08/09/2025 1:06 PM MUSEUM PREPARATOR XR CHEST PA OR AP 1 VW Stat 9:58 AM MUSEUM PREPARATOR POC GLUCOSE Routine 08/09/2025 8:10 AM MUSEUM PREPARATOR HISTOPLASMA ANTIGEN Routine 08/08/2025 11:21 PM MUSEUM PREPARATOR PROCEDURE REPORT 08/08/2025 10:21 PM MUSEUM PREPARATOR POC GLUCOSE Routine 08/08/2025 9:44 PM MUSEUM PREPARATOR POC GLUCOSE Routine 08/08/2025 5:10 PM MUSEUM PREPARATOR XR FLUORO LESS THAN 1 HOUR Routine 08/08/2025 3:43 PM MUSEUM PREPARATOR XR CHEST PA OR AP 1 VW Stat 3:39 PM MUSEUM PREPARATOR PATHOLOGY Pathology 08/08/2025 3:26 PM MUSEUM PREPARATOR CYTOLOGY, NON GYNE Pathology 08/08/2025 3: 26 PM MUSEUM PREPARATOR HISTOPLASMA PCR Routine 08/08/2025 3:26 PM MUSEUM PREPARATOR CELL COUNT WITH DIFFERENTIAL, BODY FLUID Routine 08/08/2025 3:26 PM MUSEUM PREPARATOR PNEUMOCYSTIS JIROVECI BY PCR Routine 08/08/2025 3:26 PM MUSEUM PREPARATOR PNEUMONIA PATHOGEN PCR PANEL Routine 08/08/2025 3:26 PM MUSEUM PREPARATOR ASPERGILLUS ANTIGEN, BRONCHOALVEOLAR LAVAGE Routine 08/08/2025 3:26 PM MUSEUM PREPARATOR FUNGUS CULTURE, OTHER Routine 08/08/2025 3:26 PM MUSEUM PREPARATOR FUNGUS CULTURE, OTHER Routine 08/08/2025 3:26 PM MUSEUM PREPARATOR AFB CULTURE WITH STAIN Routine 3:26 PM MUSEUM PREPARATOR AFB CULTURE WITH STAIN Routine 3:26 PM MUSEUM PREPARATOR RESPIRATORY CULTURE WITH GRAM STAIN Routine 08/08/2025 3:26 PM MUSEUM PREPARATOR RESPIRATORY CULTURE WITH GRAM STAIN Routine 08/08/2025 3:26 PM MUSEUM PREPARATOR POC GLUCOSE Routine 08/08/2025 12:26 PM MUSEUM PREPARATOR BRONCHOSCOPY Routine 08/08/2025 10:15 AM MUSEUM PREPARATOR POC GLUCOSE Routine 08/08/2025 8:19 AM MUSEUM PREPARATOR DIFFERENTIAL, MANUAL Routine 08/08/2025 3:29 AM MUSEUM PREPARATOR COMPREHENSIVE METABOLIC PANEL Routine 08/08/2025 3:29 AM MUSEUM PREPARATOR CBC WITH DIFFERENTIAL Routine 08/08/2025 3:29 AM MUSEUM PREPARATOR MAGNESIUM LEVEL Routine 08/08/2025 3:29 AM MUSEUM PREPARATOR HIV 1 RNA, QUANTITATIVE Routine 08/08/2025 3:29 AM MUSEUM PREPARATOR Symptomatic HIV infection (CMS/HCC) POC GLUCOSE Routine 08/07/2025 10:05 PM MUSEUM PREPARATOR POC GLUCOSE Routine 08/07/2025 5:19 PM MUSEUM PREPARATOR POC GLUCOSE Routine 08/07/2025 1:24 PM MUSEUM PREPARATOR POC GLUCOSE Routine 08/07/2025 8:41 AM MUSEUM PREPARATOR POC GLUCOSE Routine 08/07/2025 7:33 AM MUSEUM PREPARATOR COMPREHENSIVE METABOLIC PANEL Routine 08/07/2025 4:53 AM MUSEUM PREPARATOR CBC WITH DIFFERENTIAL Routine 08/07/2025 4:53 AM MUSEUM PREPARATOR MAGNESIUM LEVEL Routine 08/07/2025 4:53 AM MUSEUM PREPARATOR POC GLUCOSE Routine 08/06/2025 9:18 PM MUSEUM PREPARATOR BLOOD GAS ARTERIAL Routine 08/06/2025 9: 11 PM MUSEUM PREPARATOR AFB CULTURE WITH STAIN Routine 7:39 PM MUSEUM PREPARATOR STREPTOCOCCUS PNEUMONIAE ANTIGEN Routine 08/06/2025 5:56 PM MUSEUM PREPARATOR LEGIONELLA ANTIGEN, URINE Routine 08/06/2025 5:56 PM MUSEUM PREPARATOR PNEUMOCYSTIS JIROVECI BY PCR Routine 08/06/2025 5:23 PM MUSEUM PREPARATOR SPUTUM CULTURE WITH GRAM STAIN Routine 08/06/2025 5:23 PM MUSEUM PREPARATOR C. DIFFICILE DETECTION Routine 5:20 PM MUSEUM PREPARATOR POC GLUCOSE Routine 08/06/2025 5:17 PM MUSEUM PREPARATOR CBC WITH DIFFERENTIAL Routine 08/06/2025 5:17 PM MUSEUM PREPARATOR COMPREHENSIVE METABOLIC PANEL Routine 08/06/2025 5:17 PM MUSEUM PREPARATOR HEMOGLOBIN A1C Routine 08/06/2025 5:17 PM MUSEUM PREPARATOR CD4/CD8 T CELLS PANEL Routine 08/06/2025 5:17 PM MUSEUM PREPARATOR BLOOD CULTURE Routine 08/06/2025 5:17 PM MUSEUM PREPARATOR BLOOD CULTURE Routine 08/06/2025 5:17 PM MUSEUM PREPARATOR BLOOD CULTURE Routine 08/06/2025 5:17 PM MUSEUM PREPARATOR BLOOD CULTURE Routine 08/06/2025 5:17 PM MUSEUM PREPARATOR XR CHEST PA OR AP 1 VW Routine 4:35 PM MUSEUM PREPARATOR from Last 3 Months Results * TELEMETRY REPORT (09/11/2025 7:44 AM MUSEUM PREPARATOR) Only the most recent of5 resultswithin the time period is included. us Provider Scanning ECG ORDERABLES Final Result * PROCALCITONIN (09/05/2025 9:04 PM MUSEUM PREPARATOR) PROCALCITONIN <0.06 <=0.25 ng/mL 09/05/2025 10:05 PM MUSEUM PREPARATOR [facility] Blood Venipuncture / Unknown 09/05/2025 9:04 PM MUSEUM PREPARATOR 09/05/2025 9:16 PM MUSEUM PREPARATOR Narrative [facility] - 09/05/2025 10:05 PM MUSEUM PREPARATOR The utility of procalcitonin is limited/NOT recommended in certain populations (e.g. newborns, dialysis/ESRD, patients with recent major surgery/trauma/shetty, liver cirrhosis, viral hepatitis, certain cancers, etc.). Procalcitonin levels MUST be interpreted in the context of the patient's clinical condition and CANNOT be solely relied upon for diagnosis of infection. <0.25 ng/mL: Bacterial infection unlikely, particularly lower respiratory tract infections. <0.5 ng/mL: Low risk for progression to severe sepsis/septic shock. Localized infection possible. Measurements done early (<6 hours) after systemic process starts may still be low. 0.5-2 ng/mL: Moderate risk for progression to severe sepsis/septic shock. >2 ng/mL: High risk for progression to severe sepsis/septic shock. If antibiotics ARE administered, repeat testing is recommended every 2-3 days to help guide antibiotic cessation. Once a decrease of 80% or more has occurred from baseline, discontinuation of antibiotics should strongly be considered in clinically stable patients. Procalcitonin is produced in the setting of systemic inflammation, particularly bacterial infections. It is detectable within 2-4 hours and peaks within 6-24 hours. Frank Camarillo NP CHEMISTRY ORDERABLES Final Result Performing Organization Address [facility] Co de Phone Number [facility]# [id number] [address] [place] [address] * (ABNORMAL) C-REACTIVE PROTEIN (09/05/2025 9:04 PM MUSEUM PREPARATOR) [facility] CRP 27.1(H) <5.0 mg/L 09/05/2025 9:58 PM MUSEUM PREPARATOR [facility] Blood Venipuncture / Unknown 09/05/2025 9:04 PM MUSEUM PREPARATOR 09/05/2025 9:16 PM MUSEUM PREPARATOR Frank Camarillo NP CHEMISTRY ORDERABLES Final Result Performing Organization Address [facility] de Phone Number [facility]# [id number] [address] [place] [address] * PNEUMONIA PATHOGEN PCR PANEL (09/05/2025 11:40 AM MUSEUM PREPARATOR) Only the most recent of2 resultswithin the time period is included. [facility] Pneumonia Pathogen PCR Panel NOT DETECTED No nucleic acids detected. 09/05/2025 3:58 PM MUSEUM PREPARATOR [facility] Sputum COUGHED SPUTUM SPECIMEN / Unknown Collection / Unknown 09/05/2025 11:40 AM MUSEUM PREPARATOR 09/05/2025 11:47 AM MUSEUM PREPARATOR Letitia [facility] - 09/05/2025 3:58 PM MUSEUM PREPARATOR A negative result does not exclude the possibility of infection. A semi-quantitative (copies/mL) result is provided for bacteria. This panel does not distinguish between nucleic acid from live or bacteria or virus. Culture is needed for recovery of bacterial isolates and antimicrobial susceptibility testing. The Film Array Pneumonia Pathogen PCR Panel is a multiplexed nucleic acid detection test for 33 targets of bacteria, viruses, and resistance markers in respiratory specimens that cause pneumonia. Bacteria: Acinetobacter calcoaceticus-baumannii complex Enterobacter cloacae complex Escherichia coli Haemophilus influenzae Klebsiella aerogenes Klebsiella oxytoca Klebsiella pneumoniae group Moraxella catarrhalis Proteus spp. Pseudomonas aeruginosa Serratia marcescens Staphylococcus aureus Streptococcus agalactiae Streptococcus pneumoniae Streptococcus pyogenes Atypical Bacteria: Chlamydia pneumoniae Legionella pneumophila Mycoplasma pneumoniae Viruses: Adenovirus Coronavirus (229E, OC43, HKU1, NL63) Human Metapneumovirus Human Rhinovirus/Enterovirus Influenza A Influenza B Parainfluenza Virus Respiratory Syncytial Virus Antimicrobial Resistance Genes: CTX-M IMP KPC NDM OXA-48-like VIM mecA/C and MREJ Frank Camarillo NP MICROBIOLOGY - GENERAL ORD ERABLES Final Result Performing Organization Address City/State/[facility] Co de Phone Number [facility]# [id number] [address] [place] [address] * SPUTUM CULTURE WITH GRAM STAIN (09/05/2025 11:39 AM MUSEUM PREPARATOR) Only the most recent of2 resultswithin the time period is included. CULTURE No pathogens isolated. Normal respiratory nga present. 09/07/2025 10:30 AM MUSEUM PREPARATOR [facility] GRAM STAIN Non diagnostic pattern 09/07/2025 10:30 AM MUSEUM PREPARATOR [facility] GRAM STAIN 3+ (Moderate) Polymorphonuclear WBC 09/07/2025 10:30 AM MUSEUM PREPARATOR [facility] Sputum COUGHED SPUTUM SPECIMEN / Unknown Collection / Unknown 09/05/2025 11:39 AM MUSEUM PREPARATOR 09/05/2025 11:47 AM MUSEUM PREPARATOR Frank Camarillo NP MICROBIOLOGY - GENERAL ORD ERABLES Final Result Performing Organization Address City/[facility]/ZIP Co de Phone Number [facility] [place]# [id number] [address] [place] [address] * (ABNORMAL) TROPONIN 6 HR, 5TH GEN (09/05/2025 1:59 AM MUSEUM PREPARATOR) TROPONIN T, 6 HR 5TH GEN 15(H) <11 ng/L 09/05/2025 3:38 AM MUSEUM PREPARATOR [facility] DELTA 6HR TROPONIN T 1 See Interp. 09/05/2025 3:38 AM MUSEUM PREPARATOR [facility] Blood Venipuncture / Unknown 09/05/2025 1:59 AM MUSEUM PREPARATOR 09/05/2025 3:05 AM MUSEUM PREPARATOR Narrative [facility] - 09/05/2025 3:38 AM MUSEUM PREPARATOR Troponin elevated. Delta indeterminate. Delay in collection of timed specimen beyond recommended collection interval. Results must be interpreted in clinical context. Aleksandar Mathis DO CHEMISTRY ORDERABLES Final Result Performing Organization Address [facility] Co de Phone Number [facility] CLIA# [id number] [address] [place] [address] * CTA CHEST W AND/OR WO CONTRAST (09/04/2025 10:59 PM MUSEUM PREPARATOR) Anatomical Region Laterality Modality Chest Computed Tomogra phy 09/04/2025 10:5 0 PM MUSEUM PREPARATOR Impressions 09/04/2025 11:24 PM MUSEUM PREPARATOR IMPRESSION: 1. No pulmonary emboli. 2. Interval removal of left pleural catheter. 3. Redemonstrated right middle lobe pulmonary mass with extensive mediastinal/hilar lymphadenopathy. 4. Hypodensities throughout the liver consistent with hepatic metastases. DICTATION LOCATION: Location 4 Narrative 09/04/2025 11:24 PM MUSEUM PREPARATOR EXAM: CTA CHEST W AND/OR WO CONTRAST, 09/04/2025 10:59 PM HISTORY: Pulmonary embolism (PE) suspected, high prob TECHNIQUE: CT images of the chest were acquired following IV contrast administration (IOPAMIDOL 61 % INTRAVENOUS SOLUTION (MULTI-DOSE BULK PACK) Given:80 mL) following pulmonary embolism protocol. Coronal and sagittal reconstructions, as well as MIP images of the lungs and 3-D MPR reconstructions of the chest. In accordance with CT policies/protocols and the ALARA principal, radiation dose reduction techniques (such as automated exposure control, adjustment of mA/kV according to patient size and/or iterative reconstruction technique) were utilized for this examination. CTA CHEST PE FINDINGS: Pulmonary arteries and vascular: Diagnostic quality bolus. No filling defects. Lungs: Extensive emphysematous lung changes with scarring of the apices. Nodular calcifications within the lung apices are redemonstrated. Redemonstrated right middle lobe mass measuring 3.5 x 3.4 cm. Interval removal of left pigtail catheter. Pleura: No pleural effusion or pneumothorax. Airways: Debris is present within the right mainstem airway extending into the right upper lobe airway. Heart and mediastinum: Heart size is normal. Atherosclerosis of the coronary arteries is present. Enlarged mediastinal and hilar lymph nodes. Right paratracheal reference left node is similar in size measuring 1.8 cm. Thyroid gland: Normal appearance of the thyroid gland. Subphrenic structures: A punctate nonobstructive stone is present in the left kidney. Multiple ill-defined hypodensities are present within the liver. Musculoskeletal system: Extensive spondylosis of the thoracic spine. Chronic L1 compression fracture is redemonstrated. Procedure Note Asuncion Donohue, DO - 09/04/2025 EXAM: CTA CHEST W AND/OR WO CONTRAST, 09/04/2025 10:59 PM HISTORY: Pulmonary embolism (PE) suspected, high prob TECHNIQUE: CT images of the chest were acquired following IV contrast administration (IOPAMIDOL 61 % INTRAVENOUS SOLUTION (MULTI-DOSE BULK PACK) Given:80 mL) following pulmonary embolism protocol. Coronal and sagittal reconstructions, as well as MIP images of the lungs and 3-D MPR reconstructions of the chest. In accordance with CT policies/protocols and the ALARA principal, radiation dose reduction techniques (such as automated exposure control, adjustment of mA/kV according to patient size and/or iterative reconstruction technique) were utilized for this examination. CTA CHEST PE FINDINGS: Pulmonary arteries and vascular: Diagnostic quality bolus. No filling defects. Lungs: Extensive emphysematous lung changes with scarring of the apices. Nodular calcifications within the lung apices are redemonstrated. Redemonstrated right middle lobe mass measuring 3.5 x 3.4 cm. Interval removal of left pigtail catheter. Pleura: No pleural effusion or pneumothorax. Airways: Debris is present within the right mainstem airway extending into the right upper lobe airway. Heart and mediastinum: Heart size is normal. Atherosclerosis of the coronary arteries is present. Enlarged mediastinal and hilar lymph nodes. Right paratracheal reference left node is similar in size measuring 1.8 cm. Thyroid gland: Normal appearance of the thyroid gland. Subphrenic structures: A punctate nonobstructive stone is present in the left kidney. Multiple ill-defined hypodensities are present within the liver. Musculoskeletal system: Extensive spondylosis of the thoracic spine. Chronic L1 compression fracture is redemonstrated. IMPRESSION: 1. No pulmonary emboli. 2. Interval removal of left pleural catheter. 3. Redemonstrated right middle lobe pulmonary mass with extensive mediastinal/hilar lymphadenopathy. 4. Hypodensities throughout the liver consistent with hepatic metastases. DICTATION LOCATION: Location [address] ORDERABLES Final Resul t * XR CHEST PA OR AP 1 VW (09/04/2025 9:41 PM MUSEUM PREPARATOR) Only the most recent of12 resultswithin the time period is included. Anatomical Region Laterality Modality Chest Computed Radiogr aphy 09/04/2025 9:42 PM MUSEUM PREPARATOR Impressions 09/04/2025 9:46 PM MUSEUM PREPARATOR IMPRESSION: 1. Right hilar/middle lobe mass, largely unchanged. There is some increasing opacity more peripheral aspect of the right midlung which could relate atelectasis or pneumonia. DICTATION LOCATION: Location 4 Narrative 09/04/2025 9:46 PM MUSEUM PREPARATOR XR CHEST PA OR AP 1 VW DATE: 09/04/2025 9:41 PM HISTORY: Shortness of breath. COMPARISON: 08/29/2025. FINDINGS: Right hilar/middle lobe mass, not significantly changed. There is some mild opacity noted in the more peripheral aspect of the right midlung which has increased and could relate atelectasis or pneumonia. No pleural effusion. No pneumothorax. Heart size and mediastinal contour are normal. Left subclavian port, unchanged Procedure Note Kurtis Diggs MD - 09/04/2025 XR CHEST PA OR AP 1 VW DATE: 09/04/2025 9:41 PM HISTORY: Shortness of breath. COMPARISON: 08/29/2025. FINDINGS: Right hilar/middle lobe mass, not significantly changed. There is some mild opacity noted in the more peripheral aspect of the right midlung which has increased and could relate atelectasis or pneumonia. No pleural effusion. No pneumothorax. Heart size and mediastinal contour are normal. Left subclavian port, unchanged IMPRESSION: 1. Right hilar/middle lobe mass, largely unchanged. There is some increasing opacity more peripheral aspect of the right midlung which could relate atelectasis or pneumonia. DICTATION LOCATION: Location 4 Mitch Lockwood DO DIAGNOSTIC IMAGING ORDERABLES Fi nal Result * (ABNORMAL) TROPONIN 2 HR, 5TH GEN (09/04/2025 9:01 PM MUSEUM PREPARATOR) Pathologist [facility] [place] TROPONIN T, 2 HR 5TH GEN 15(H) <=10 ng/L 09/04/2025 9:38 PM MUSEUM PREPARATOR [facility] [place] 2HR TROPONIN T 1 See Interp. 09/04/2025 9:38 PM MUSEUM PREPARATOR [facility] Blood Venipuncture / Unknown 09/04/2025 9:01 PM MUSEUM PREPARATOR 09/04/2025 9:04 PM MUSEUM PREPARATOR Narrative [facility] - 09/04/2025 9:38 PM MUSEUM PREPARATOR Troponin elevated. Delta not changing. Delay in collection of timed specimen beyond recommended collection interval. Results must be interpreted in clinical context. Aleksandar Mathis DO CHEMISTRY ORDERABLES Final Result [facility]# [id number] [address] [facility] [place] [address] [place] [address] * (ABNORMAL) BLOOD GAS VENOUS (09/04/2025 6:55 PM MUSEUM PREPARATOR) Pathologist [facility] [place] PH BLOOD POC 7.47(H) 7.32 - 7.43 09/04/2025 6:55 PM [facility] PCO2 POC 44 38 - 50 mm Hg 09/04/2025 6:55 PM [facility] PO2 POC 83(H) 25 - 40 mm Hg 09/04/2025 6:55 PM [facility] HCO3 (CALC) POC 32(H) 22 - 29 mmol/L 09/04 6:55 PM [facility] BASE EXCESS POC 7 No Reference Range Established mmol/L 09/04/2025 6:55 PM [facility] O2 SATURATION CALCULATED POC 97(H) 40 - 70 % 09/04/2025 6:55 PM [facility] Comment:Calculated sO2 may b e less accurate due to the factors affecting the oxygen dissociation curve. Measured sO2 by Co-oximetry is unaffected by these factors. Clinical correlation is suggested. PH TEMP CORRECT 7.47(H) 7.32 - 7.43 09/04/20 25 6:55 PM [facility] PCO2 TEMP CORRECT 44 38 - 50 mm Hg 09/04/2025 6:55 PM [facility] PO2 TEMP CORRECT 83(H) 25 - 40 mm Hg 09/04 6:55 PM [facility] SPECIMEN SOURCE, GASES POC Venous 09/04/2025 6:55 PM [facility] TCO2 (CALC) POC 33(H) 22 - 26 mmol/L 09/04 6:55 PM [facility] PATIENT'S TEMPERATURE POC 37.0 degrees 09/04/2025 6:55 PM [facility] Blood, venous 09/04/2025 6:5 5 PM MUSEUM PREPARATOR 09/04/2025 6:57 PM MUSEUM PREPARATOR us Mitch Lockwood DO ABG ORDERABLES Final Result [facility] CLIA# [id number] [address] [place] [address] * (ABNORMAL) TROPONIN BASELINE, 5TH GEN (09/04/2025 6:47 PM MUSEUM PREPARATOR) [facility] TROPONIN T, BASELINE 5TH GEN 14(H) <=10 ng/L 09/04/2025 9:01 PM MUSEUM PREPARATOR [facility] Blood Venipuncture / Unknown 09/04/2025 6:47 PM MUSEUM PREPARATOR 09/04/2025 6:56 PM MUSEUM PREPARATOR [facility] - 09/04/2025 9:01 PM MUSEUM PREPARATOR Troponin elevated. Aleksandar Mathis DO CHEMISTRY ORDERABLES Final Result [facility]# [id number] [address] [place] [place] [address] * RESPIRATORY PATHOGEN PCR PANEL (09/04/2025 6:47 PM MUSEUM PREPARATOR) [facility] Respiratory Pathogen PCR Panel NOT DETECTED No respiratory pathogen nucleic acids detected. 09/04/2025 8:07 PM MUSEUM PREPARATOR [facility] COVID-19 PCR NOT DETECTED Not Detected 09/04/2025 8:07 PM MUSEUM PREPARATOR [facility] Upper Respiratory ENTIRE NASOPHARYNX / Unknown 09/04/2025 6:47 PM MUSEUM PREPARATOR 09/04/2025 6:56 PM MUSEUM PREPARATOR [facility] - 09/04/2025 8:07 PM MUSEUM PREPARATOR The Film Array Respiratory Panel (RP2.1) is a multiplex nucleic acid detection test for 22 targets. Viruses: Adenovirus Coronavirus HKU1, NL63, 229E, and OC43 COVID-19/Severe Acute Respiratory Syndrome Coronavirus 2 Influenza A with the following subtypes: H1, H1-2009, and H3 Influenza B Human Metapneumovirus Parainfluenza virus 1, 2, 3, and 4 Respiratory Syncytial virus (RSV) Rhinovirus/Enterovirus (cannot differentiate due to genetic similarities) Bacteria: Bordetella pertussis Bordetella parapertussis Chlamydophila pneumoniae Mycoplasma pneumoniae us iMtch Lockwood DO MICROBIOLOGY - GENERAL ORDERABLE S Final Result [facility]# [id number] [address] [place] [address] * (ABNORMAL) CBC WITH DIFFERENTIAL (09/04/2025 6:47 PM MUSEUM PREPARATOR) Only the most recent of14 resultswithin the time period is included. WBC 10.1(H) 4.0 - 9.8 K/uL 09/04/2025 7:01 PM [facility] RBC 3.90 3.90 - 4.90 M/uL 09/04/2025 7:01 PM [facility] HEMOGLOBIN 10.5(L) 11.8 - 14.8 g/dL 09/04/2025 7:01 PM [facility] HEMATOCRIT 33.7(L) 35.5 - 44.0 % 09/04/2025 7:01 PM [facility] MCV 86.4 82.0 - 99.0 fL 09/04/2025 7:01 PM [facility] MCH 26.9(L) 27.2 - 32.6 pg 09/04/2025 7:01 PM [facility] MCHC 31.2(L) 31.5 - 35.5 g/dL 09/04/2025 7:01 PM [facility] RDW 15.7(H) 11.5 - 14.5 % 09/04/2025 7:01 PM [facility] RDW-STDEV 49.1(H) 37.1 - 48.7 fL 09/04/2025 7:01 PM [facility] PLATELETS 389(H) 140 - 350 K/uL 09/04/2025 7:01 PM [facility] MPV 9.3 9.3 - 12.4 fL 09/04/2025 7:01 PM MUSEUM PREPARATOR [employer] LABORATORY SERVICES [facility] NEUTROPHILS 78 % 09/04/2025 7:01 PM [facility] LYMPHOCYTES 13 % 09/04/2025 7:01 PM [facility] MONOCYTES 8 % 09/04/2025 7:01 PM [facility] EOSINOPHILS 0 % 09/04/2025 7:01 PM [facility] BASOPHILS 0 % 09/04/2025 7:01 PM [facility] IMMATURE GRANULOCYTES 1 % 09/04/2025 7:01 PM [facility] Comment:IG (Immature Granulo cyte) count includes Metamyelocytes, Myelocytes, and Promyelocytes NEUTROPHIL ABSOLUTE 7.80(H) 1.90 - 7.00 K/uL 09/04/2025 7:01 PM [facility] LYMPHOCYTE ABSOLUTE 1.30 0.70 - 4.50 K/uL 09/04/2025 7:01 PM [facility] MONOCYTE ABSOLUTE 0.79 0.10 - 1.30 K/uL 09/04/2025 7:01 PM [facility] EOSINOPHIL ABSOLUTE 0.01 0.00 - 0.70 K/uL 09/04/2025 7:01 PM [facility] BASOPHILS ABSOLUTE 0.02 0.00 - 0.20 K/uL 09/04/2025 7:01 PM [facility] IMMATURE GRANULOCYTES ABSOLUTE 0.14(H) 0.00 - 0.03 K/uL 09/04/2025 7:01 PM [facility] Blood Venipuncture / Unknown 09/04/2025 6:47 PM MUSEUM PREPARATOR 09/04/2025 6:56 PM MUSEUM PREPARATOR us Mitch Lockwood DO HEMATOLOGY ORDERABLES Final Resu lt [facility] CLIA# [id number] [address] [facility] [place] [address] * (ABNORMAL) BRAIN NATRIURETIC PEPTIDE, BNP OR PROBNP (09/04/2025 6:47 PM MUSEUM PREPARATOR) Only the most recent of2 resultswithin the time period is included. PROBNP, N TERMINAL 155(H) <124 pg/mL 09/04/2025 7:35 PM [facility] Comment: INTERPRETIVE COMMENT based on diagnosis: Diagnostic NT pro-BNP cutoffs for Heart Failure in the absence of renal failure is suggested for the following ranges <75 years: <125 pg/mL >=75 years: <450 pg/mL Exclusionary rule out cut-point for Acute Decompensated Heart Failure(ADHF) All ages: <300 pg/mL Diagnostic NT pro-BNP cutoffs for Acute Decompensated Heart Failure(ADHF) in the absence of renal failure is suggested for the following ages <50 years: > 450 pg/mL 50-75 years: > 900 pg/mL >75 years: >1800 pg/mL Blood Venipuncture / Unknown 09/04/2025 6:47 PM MUSEUM PREPARATOR 09/04/2025 6:56 PM MUSEUM PREPARATOR Mitch Lockwood DO CHEMISTRY ORDERABLES Final Resul t [facility]# [id number] [address] [place] [place] [address] * (ABNORMAL) BASIC METABOLIC PANEL (09/04/2025 6:47 PM MUSEUM PREPARATOR) Only the most recent of4 resultswithin the time period is included. SODIUM 133(L) 136 - 145 mmol/L 09/04/2025 7:35 PM [facility] POTASSIUM 4.2 3.5 - 5.0 mmol/L 09/04/2025 7:35 PM [facility] CHLORIDE 95(L) 98 - 107 mmol/L 09/04/2025 7:35 PM [facility] CO2 31(H) 22 - 29 mmol/L 09/04/2025 7:35 PM [facility] CALCIUM 8.8 8.6 - 10.2 mg/dL 09/04/2025 7:35 PM [facility] BUN 13 8 - 23 mg/dL 09/04/2025 7:35 PM [facility] CREATININE 0.30(L) 0.51 - 0.95 mg/dL 09/04/2025 7:35 PM [facility] GLUCOSE 109(H) 74 - 99 mg/dL 09/04/2025 7:35 PM [facility] GFR >60 >=60 mL/min/1.7 3 sq meter 09/04/2025 7:35 PM [facility] Comment:eGFR calculated with 2020 CKD-EPI equation. Vegetarian diet, extremely high or low muscle mass, and may affect results. Cystatin C with Glomerular Filtration Rate is a suitable alternative for these patients. ANION GAP 7(L) 8 - 16 mmol/L 09/04/2025 7:35 PM [facility] Blood Venipuncture / Unknown 09/04/2025 6:47 PM MUSEUM PREPARATOR 09/04/2025 6:56 PM MUSEUM PREPARATOR us Mitch Lockwood DO CHEMISTRY ORDERABLES Final Resul t [facility] [id number] [address] [id number] * EKG 12-LEAD (09/04/2025 5:32 PM MUSEUM PREPARATOR) 09/04/2025 5:32 PM MUSEUM PREPARATOR Narrative INTERFACE SYSTEM - 09/05/2025 11:59 AM [facility] [address] [place] [address] Test Date: 2025-09-04 Pat Name: ANAT DAVEY Department: 36 Room: 4079 Gender: F Fitter Tacker: [id number] : 1960 Requested By: Order Number: [id number] Reading MD: Hal Deleon Measurements Intervals [place] Rate: 94 P: 65 AR: 145 QRS: 28 QRSD: 85 T: 38 QT: 332 QTc: 416 Interpretive Statements Sinus rhythm Borderline ST depression, anterolateral leads Electronically Signed On 09-05-2025 11:59:44 MUSEUM PREPARATOR by Hal Deleon Procedure Note Hal Deleon MD - 09/05/2025 [facility] [address] , [place] [address] Test Date: 2025-09-04 Pat Name: ANAT DAVEY Department: 36 Room: [facility] Gender: F Fitter Tacker: [id number] : 1960 Requested By: Order Number: [id number] Reading MD: Hal Deleon Measurements Intervals [place] Rate: 94 P: 65 AR: 145 QRS: 28 QRSD: 85 T: 38 QT: 332 QTc: 416 Interpretive Statements Sinus rhythm Borderline ST depression, anterolateral leads Electronically Signed On 09-05-2025 11:59:44 MUSEUM PREPARATOR by Hal Deleon Mitch Lockwood DO ECG ORDERABLES Final Result Performing Organization Address City/State/[facility] Co de Phone Number INTERFACE SYSTEM Refer to clinic/hospital department * Critical Care (09/04/2025 5:05 PM MUSEUM PREPARATOR) Narrative Aleksandar Mathis DO - 09/04/2025 5:05 PM MUSEUM PREPARATOR Aleksandar Mathis DO 09/04/2025 11:28 PM Critical Care Performed by: Aleksandar Mathis DO Authorized by: Aleksandar Mathis DO Critical care provider statement: Critical care time (minutes): 45 Critical care time was exclusive of: Separately billable procedures and treating other patients Critical care was necessary to treat or prevent imminent or life-threatening deterioration of the following conditions: Respiratory failure Critical care was time spent personally by me on the following activities: Development of treatment plan with patient or surrogate, evaluation of patient's response to treatment, ordering and performing treatments and interventions, ordering and review of laboratory studies, ordering and review of radiographic studies, pulse oximetry, re-evaluation of patient's condition, review of old charts, examination of patient, obtaining history from patient or surrogate and discussions with consultants I assumed direction of critical care for this patient from another provider in my specialty: no Care discussed with: admitting provider Aleksandar Monahan Delfina DO PROCEDURE/MINOR SURGICAL OR DERABLES Final Result * (ABNORMAL) COMPREHENSIVE METABOLIC PANEL (08/29/2025 2:11 AM MUSEUM PREPARATOR) Only the most recent of12 resultswithin the time period is included. SODIUM 132(L) 136 - 145 mmol/L 08/29/2025 3:18 AM [facility] POTASSIUM 4.1 3.5 - 5.0 mmol/L 08/29/2025 3:18 AM [facility] CHLORIDE 93(L) 98 - 107 mmol/L 08/29/2025 3:18 AM MUSEUM PREPARATOR [facility] CO2 33(H) 22 - 29 mmol/L 08/29/2025 3:18 AM [facility] CALCIUM 8.4(L) 8.6 - 10.2 mg/dL 08/29/2025 3:18 AM MUSEUM PREPARATOR [facility] BUN 12 8 - 23 mg/dL 08/29/2025 3:18 AM [facility] CREATININE 0.32(L) 0.51 - 0.95 mg/dL 08/29/2025 3:18 AM [facility] GLUCOSE 118(H) 74 - 99 mg/dL 08/29/2025 3:18 AM [facility] TOTAL PROTEIN 5.4(L) 6.7 - 8.6 g/dL 08/29/2025 3:18 AM MUSEUM PREPARATOR [facility] ALBUMIN 3.2(L) 3.5 - 5.2 g/dL 08/29/2025 3:18 AM MUSEUM PREPARATOR [facility] BILIRUBIN TOTAL <0.2 0.0 - 1.1 mg/dL 08/29/2025 3:18 AM MUSEUM PREPARATOR [facility] ALKALINE PHOSPHATASE 124(H) 35 - 104 U/L 08/29/2025 3:18 AM MUSEUM PREPARATOR [facility] AST 27 <33 U/L 08/29/2025 3:18 AM [facility] ALT 23 <34 U/L 08/29/2025 3:18 AM [facility] GFR >60 >=60 mL/min/1.7 3 sq meter 08/29/2025 3:18 AM [facility] Comment:eGFR calculated with 2020 CKD-EPI equation. Vegetarian diet, extremely high or low muscle mass, and may affect results. Cystatin C with Glomerular Filtration Rate is a suitable alternative for these patients. ANION GAP 6(L) 8 - 16 mmol/L 08/29/2025 3:18 AM [facility] Blood Venipuncture / Unknown 08/29/2025 2:11 AM MUSEUM PREPARATOR 08/29/2025 2:31 AM MUSEUM PREPARATOR Narrative [facility] - 08/29/2025 3:18 AM MUSEUM PREPARATOR Samples containing indocyanine green cause interferences on Total and/or Direct Bilirubin and must not be measured. Sharon AG CHEMISTRY ORDERABLES Final Result Performing Organization Address City/State/[facility] Co de Phone Number [facility]# [id number] [address] [facility] [place] [address] * CT CHEST WO CONTRAST (08/26/2025 9:28 AM MUSEUM PREPARATOR) Anatomical Region Laterality Modality Chest Computed Tomogra phy 08/26/2025 9:18 AM MUSEUM PREPARATOR Impressions 08/26/2025 10:39 AM MUSEUM PREPARATOR IMPRESSION: 1. Small left pneumothorax. Left pleural catheter in place. 2. Unchanged right middle lobe pulmonary mass. 3. Similar mediastinal and hilar lymphadenopathy. 4. Unchanged metastatic lesions within the liver. 5. Interval mild superior endplate compression fracture at T10. DICTATION LOCATION: Location 4 Narrative 08/26/2025 10:[address] CHEST WO CONTRAST INDICATION: Pneumothorax, pneumothorax. COMPARISON STUDY: Chest radiograph 08/05/2025. TECHNIQUE: CT was obtained from the neck base through the upper abdomen without contrast in the axial plane, reconstructed using lung and soft tissue algorithms and reformatted in coronal and sagittal planes. The examination was performed with the adjustment of mA according to the patient size and/or the use of Iterative Reconstruction Technique. FINDINGS: Lungs and Airways: Layering secretions within the right greater than left mainstem bronchi. Unchanged right middle lobe mass measuring 3.2 x 2.6 cm. Diffuse emphysema. Unchanged nodular calcifications within the lung apices. Pleura: No pleural effusion. Small left pneumothorax. Left pigtail pleural catheter projects in the anterior pleural space. Heart and Mediastinum: The visualized portions of the thyroid gland are normal in size and attenuation. No axillary or supraclavicular lymphadenopathy. Similar mediastinal lymphadenopathy, including 2.7 cm subcarinal lymph node and 1.8 cm right paratracheal lymph node. Unchanged extensive right hilar lymphadenopathy. Normal heart size. No pericardial effusion. The thoracic aorta is normal caliber. Left pectoral Port-A-Cath with tip terminating at the superior cavoatrial junction. Abdomen: Unchanged evidence lesions within the liver. Punctate nonobstructing left renal calculus. Bones and Soft Tissues: Interval mild superior endplate compression fracture at T10. Remaining compression deformities are unchanged. Trace subcutaneous emphysema within the left anterior chest wall. Procedure Note Kenney Toledo, DO - 08/26/2025 CT CHEST WO CONTRAST INDICATION: Pneumothorax, pneumothorax. COMPARISON STUDY: Chest radiograph 08/05/2025. TECHNIQUE: CT was obtained from the neck base through the upper abdomen without contrast in the axial plane, reconstructed using lung and soft tissue algorithms and reformatted in coronal and sagittal planes. The examination was performed with the adjustment of mA according to the patient size and/or the use of Iterative Reconstruction Technique. FINDINGS: Lungs and Airways: Layering secretions within the right greater than left mainstem bronchi. Unchanged right middle lobe mass measuring 3.2 x 2.6 cm. Diffuse emphysema. Unchanged nodular calcifications within the lung apices. Pleura: No pleural effusion. Small left pneumothorax. Left pigtail pleural catheter projects in the anterior pleural space. Heart and Mediastinum: The visualized portions of the thyroid gland are normal in size and attenuation. No axillary or supraclavicular lymphadenopathy. Similar mediastinal lymphadenopathy, including 2.7 cm subcarinal lymph node and 1.8 cm right paratracheal lymph node. Unchanged extensive right hilar lymphadenopathy. Normal heart size. No pericardial effusion. The thoracic aorta is normal caliber. Left pectoral Port-A-Cath with tip terminating at the superior cavoatrial junction. Abdomen: Unchanged evidence lesions within the liver. Punctate nonobstructing left renal calculus. Bones and Soft Tissues: Interval mild superior endplate compression fracture at T10. Remaining compression deformities are unchanged. Trace subcutaneous emphysema within the left anterior chest wall. IMPRESSION: 1. Small left pneumothorax. Left pleural catheter in place. 2. Unchanged right middle lobe pulmonary mass. 3. Similar mediastinal and hilar lymphadenopathy. 4. Unchanged metastatic lesions within the liver. 5. Interval mild superior endplate compression fracture at T10. DICTATION LOCATION: Location [address] ORDERABLES Final Result * XR CHEST PA AND LATERAL 2 VW (08/25/2025 3:36 PM MUSEUM PREPARATOR) Anatomical Region Laterality Modality Chest Computed Radiogr aphy 08/25/2025 3:37 PM MUSEUM PREPARATOR Impressions 08/25/2025 4:13 PM MUSEUM PREPARATOR IMPRESSION: Known left apical pneumothorax has slightly increased in size. DICTATION LOCATION: Location [address] [place] [address] Narrative 08/25/2025 4:13 PM MUSEUM PREPARATOR XR CHEST PA AND LATERAL 2 VW DATE: 08/25/2025 3:36 PM HISTORY: Pneumothorax TECHNIQUE: Two views of the chest were obtained. COMPARISON: 08/23/2025 FINDINGS: Small left apical pneumothorax has slightly increased in size. Pigtail chest tube remains over the left mid thorax. Right hilar and right apical nodules are again noted. Atelectatic changes persist within the left base. No new airspace consolidation has developed. Procedure Note Cyrus Kay MD - 08/25/2025 XR CHEST PA AND LATERAL 2 VW DATE: 08/25/2025 3:36 PM HISTORY: Pneumothorax TECHNIQUE: Two views of the chest were obtained. COMPARISON: 08/23/2025 FINDINGS: Small left apical pneumothorax has slightly increased in size. Pigtail chest tube remains over the left mid thorax. Right hilar and right apical nodules are again noted. Atelectatic changes persist within the left base. No new airspace consolidation has developed. IMPRESSION: Known left apical pneumothorax has slightly increased in size. DICTATION LOCATION: Location 1 - [facility] Orlando Florez MD DIAGNOSTIC IMAGING ORDERABLES Fi nal Result * VITAMIN B12 AND FOLATE (08/22/2025 12:38 PM MUSEUM PREPARATOR) VITAMIN B12 703 232 - 1,245 pg/mL 08/22/2025 3:00 PM [facility] Comment:It has been reported that between 5 to 10% of patients with values between 200 and 400 pg/mL may experience neuropsychiatric and hematologic abnormalities due to occult B12 deficiency. Less than 1% of patients with values above 400 pg/mL will have symptoms. FOLATE, SERUM >20.0 >4.5 ng/mL 08/22/2025 3:00 PM MUSEUM PREPARATOR [facility] Blood Venipuncture / Unknown 08/22/2025 12:38 PM MUSEUM PREPARATOR 08/22/2025 1:47 PM MUSEUM PREPARATOR Sharon AG CHEMISTRY ORDERABLES Final Result Performing Organization Address City/[facility]/ZIP Co de Phone Number [facility]# [id number] [address] [facility] [address] [place], [place] [address] * (ABNORMAL) IRON, TIBC, AND PERCENT SATURATION (08/21/2025 8:25 PM MUSEUM PREPARATOR) Pathologist [facility] IRON 41 37 - 145 ug/dL 08/22/2025 12:58 PM [facility] TIBC 337 250 - 450 ug/dL 08/22/2025 12:58 PM MUSEUM PREPARATOR [facility] [employer] [facility] IRON % SATURATION 12(L) 15 - 50 % 08/22/2025 12:58 PM MUSEUM PREPARATOR [facility] [employer] [facility] TRANSFERRIN 265 200 - 360 mg/dL 08/22/2025 12:58 PM MUSEUM PREPARATOR [facility] [employer] [facility] Blood Venipuncture / Unknown 08/21/2025 8:25 PM MUSEUM PREPARATOR 08/21/2025 8:57 PM MUSEUM PREPARATOR Sharon AG CHEMISTRY ORDERABLES Final Result Performing Organization Address City/[facility]/ZIP Co de Phone Number [facility] CLIA# [id number] [address] [place] [address] * XR FLUORO CENTRAL VENOUS ACCESS (08/21/2025 3:30 PM MUSEUM PREPARATOR) Anatomical Region Laterality Modality Computed Radiogr aphy 08/21/2025 4:02 PM MUSEUM PREPARATOR Impressions 08/21/2025 7:16 PM MUSEUM PREPARATOR IMPRESSION: 1. Intraoperative fluoroscopy provided for left chest port-a-cath placement. DICTATION LOCATION: Location [address] [place] [address] Narrative 08/21/2025 7:16 PM MUSEUM PREPARATOR EXAMINATION: X-RAY FLUORO CENTRAL VENOUS ACCESS DATE: 08/21/2025 3:30 PM HISTORY: Central venous catheter placement. COMPARISON: None. FLUOROSCOPY: The fluoroscopy time was 6.0 seconds. REFERENCE AIR KERMA DOSE: 0.6 mGy. FINDINGS: 4 intraoperative views of the chest are submitted. Images show ongoing left chest port-a-cath placement. The final fluoroscopic image demonstrates the catheter with its tip over the superior cavoatrial junction. Procedure Note Balaji Jovel MD - 08/21/2025 EXAMINATION: X-RAY FLUORO CENTRAL VENOUS ACCESS DATE: 08/21/2025 3:30 PM HISTORY: Central venous catheter placement. COMPARISON: None. FLUOROSCOPY: The fluoroscopy time was 6.0 seconds. REFERENCE AIR KERMA DOSE: 0.6 mGy. FINDINGS: 4 intraoperative views of the chest are submitted. Images show ongoing left chest port-a-cath placement. The final fluoroscopic image demonstrates the catheter with its tip over the superior cavoatrial junction. IMPRESSION: 1. Intraoperative fluoroscopy provided for left chest port-a-cath placement. DICTATION LOCATION: Location - [facility] us Balaji Win MD DIAGNOSTIC IMAGING ORDERABLES Final Result * AR ANES INSERT ENDOTRACHEAL AIRWAY (08/21/2025 1:20 PM MUSEUM PREPARATOR) Narrative Kt Singer AA-C - 08/21/2025 1:20 PM MUSEUM PREPARATOR Kt Singer AA-C 08/21/2025 1:35 PM Airway Date/Time: 08/21/2025 1:20 PM Location: OR Plan: routine intubation Patient Identity Confirmed by: Verbally with patient and armband Airway: not difficult Staffing Performed: REMOTE SENSING SURVEYOR/CAA Authorized by: Mimi Lawler MD Performed by: Kt Singer AA-C Indications and Patient Condition: Indications for Airway Management: Anesthesia Sedation Level: general anesthesia Preoxygenated: yes Mask Difficulty Assessment: 0 - not attempted Plan to extubate at end of case: Yes Final Airway Details: Final Airway Type: Endotracheal airway ETT Cuffed: Yes Cuff Volume (mL): 5 Technique Used for Successful ETT Placement: Direct laryngoscopy Blade Type: curved blade Blade Size: 3 Insertion Site: Oral ETT Size (mm): 6.0 Measured from: Lips ETT to Lips (cm): 19 Tube secured with: Tape Placement Verified by: auscultation, end tidal CO2 and chest rise Cormack-Lehane Classification: Grade I - full view of glottis Number of Attempts at Approach: 1 Additional Procedure Information: atraumatic Mimi Lawler MD PROCEDURE/MINOR SURGICAL ORDERA BLES Final Result * (ABNORMAL) POC GLUCOSE (08/21/2025 12:27 PM MUSEUM PREPARATOR) Only the most recent of36 resultswithin the time period is included. GLUCOSE POC 107(H) 74 - 99 mg/dL 08/21/2025 12:27 PM MUSEUM PREPARATOR [facility] SPECIMEN SOURCE, GLUCOSE POC Whole Blood 08/21/2025 12:27 PM MUSEUM PREPARATOR [facility] Blood, whole 08/21/2025 12:2 7 PM MUSEUM PREPARATOR 08/21/2025 12:42 PM MUSEUM PREPARATOR Balaji Win MD POINT OF CARE TESTING Final Re sult [facility]# [id number] [address] [facility] [place] [address] * PET TUMOR OR INFECTION IMG W CT SKB MDTH (08/17/2025 11:44 AM MUSEUM PREPARATOR) Anatomical Region Laterality Modality Positron Emissio n Tomography (PET) 08/17/2025 11:4 5 AM MUSEUM PREPARATOR Impressions 08/17/2025 12:51 PM MUSEUM PREPARATOR IMPRESSION: 1. Right middle lobe malignancy is present with metastatic lymph nodes in the right hilum and throughout the mediastinum. Multiple liver metastases and scattered osseous metastases are present. 2. The lesion in hepatic segment 8 is photopenic and likely represents an unrelated benign lesion. 3. Asymmetric FDG activity in the region of the left base of the tongue may represent asymmetric salivary excretion. Correlation with direct visualization is recommended. DICTATION LOCATION: Location 7 - [facility] 08/17/2025 12:51 PM MUSEUM PREPARATOR EXAMINATION: PET TUMOR OR INFECTION IMG W CT SKB [facility] DATE: 08/17/2025 11:44 AM REFERRING PHYSICIAN: DIMPLE NEFF HISTORY: Initial staging study - metastatic lung cancer - needs PET for staging, known hepatic metastatic disease, abnormal CT chest and abnormal CT abdomen; Cancer, metastatic to liver (CMS/HCC); NSCLC of right middle lobe (CMS/HCC); Mediastinal lymphadenopathy; Abnormal CT of the abdomen; Abnormal CT of the chest Evaluate for initial treatment strategy. TECHNIQUE: PET/CT image acquisition from the skull base to the mid thighs after 57 minutes post-injection with the CT being low-dose, non-contrast. No separate report for the CT was generated since it was of non-diagnostic quality BASELINE PARAMETERS: - Dose: 8.8 mCi of F-18 FDG by IV in the right antecubital. - Liver parenchymal tissue SUV is 2.31. - Mediastinal parenchymal tissue SUV is 1.97. - Blood glucose level is a 6 mg/dL. - Height: 5 foot 3 inches. - Weight: 126 pounds. COMPARISON: CT chest dated 08/05/2025, CT abdomen pelvis dated 08/11/2025 FINDINGS: Head and neck: No abnormal FDG uptake is seen in the visible brain. There are no significantly FDG avid or enlarged cervical lymph nodes. Asymmetric uptake at the left base of the tongue is favored to represent asymmetric salivary activity. Correlation with direct visualization is recommended. Chest: The aorta and main pulmonary artery are normal in caliber. The aorta and coronary arteries are atherosclerotic. There is a 3.5 cm right middle lobe perihilar mass demonstrating SUV max of 14. The lungs are emphysematous. The lungs are clear of focal consolidation. No pleural effusion is identified. There is no evidence of pneumothorax. The heart size is normal. There is extensive mediastinal and right hilar lymphadenopathy. For reference, a right hilar lymph node measures 1.4 cm in short axis with SUV max of 8.6. A subcarinal lymph node measures 1.9 cm in short axis with SUV max of 12. A left prevascular lymph node measures 9 mm in short axis with MAXIMUM TEMPERATURE of 6.9. Multiple additional mediastinal lymph nodes are present with intense FDG uptake. Abdomen and pelvis: Hypoattenuating liver metastases are present with intense FDG uptake. At least 6 lesions are present. The largest is present in hepatic segment 4 measuring 2.8 cm with SUV max of 12. The second largest is present in hepatic segment 6 measures 2.2 cm with SUV max of 11. A photopenic liver lesion in hepatic segment 8 is also present and may represent other benign process. The gallbladder appears normal. The bile ducts are nondilated. The spleen, pancreas, and adrenal glands appear normal. The kidneys are normal in size. There is no evidence of renal calculus or hydronephrosis. There is no evidence of bowel wall thickening or obstruction. No free air or free fluid is identified within the abdomen. There is no abdominopelvic lymphadenopathy. Musculoskeletal: Scattered osseous metastatic lesions are present. The lesions demonstrate ill-defined lucency. For reference, a xiphoid process lesion demonstrates an SUV max of 13.9. An L4 vertebral body lesion SUV max measures 10. The right iliac wing lesion demonstrates SUV max of 8.0. Procedure Note Carlos Pineda MD - 08/17/2025 EXAMINATION: PET TUMOR OR INFECTION IMG W CT SKB [facility] DATE: 08/17/2025 11:44 AM REFERRING PHYSICIAN: DIMPLE NEFF HISTORY: Initial staging study - metastatic lung cancer - needs PET for staging, known hepatic metastatic disease, abnormal CT chest and abnormal CT abdomen; Cancer, metastatic to liver (CMS/HCC); NSCLC of right middle lobe (CMS/HCC); Mediastinal lymphadenopathy; Abnormal CT of the abdomen; Abnormal CT of the chest Evaluate for initial treatment strategy. TECHNIQUE: PET/CT image acquisition from the skull base to the mid thighs after 57 minutes post-injection with the CT being low-dose, non-contrast. No separate report for the CT was generated since it was of non-diagnostic quality BASELINE PARAMETERS: - Dose: 8.8 mCi of F-18 FDG by IV in the right antecubital. - Liver parenchymal tissue SUV is 2.31. - Mediastinal parenchymal tissue SUV is 1.97. - Blood glucose level is a 6 mg/dL. - Height: 5 foot 3 inches. - Weight: 126 pounds. COMPARISON: CT chest dated 08/05/2025, CT abdomen pelvis dated 08/11/2025 FINDINGS: Head and neck: No abnormal FDG uptake is seen in the visible brain. There are no significantly FDG avid or enlarged cervical lymph nodes. Asymmetric uptake at the left base of the tongue is favored to represent asymmetric salivary activity. Correlation with direct visualization is recommended. Chest: The aorta and main pulmonary artery are normal in caliber. The aorta and coronary arteries are atherosclerotic. There is a 3.5 cm right middle lobe perihilar mass demonstrating SUV max of 14. The lungs are emphysematous. The lungs are clear of focal consolidation. No pleural effusion is identified. There is no evidence of pneumothorax. The heart size is normal. There is extensive mediastinal and right hilar lymphadenopathy. For reference, a right hilar lymph node measures 1.4 cm in short axis with SUV max of 8.6. A subcarinal lymph node measures 1.9 cm in short axis with SUV max of 12. A left prevascular lymph node measures 9 mm in short axis with MAXIMUM TEMPERATURE of 6.9. Multiple additional mediastinal lymph nodes are present with intense FDG uptake. Abdomen and pelvis: Hypoattenuating liver metastases are present with intense FDG uptake. At least 6 lesions are present. The largest is present in hepatic segment 4 measuring 2.8 cm with SUV max of 12. The second largest is present in hepatic segment 6 measures 2.2 cm with SUV max of 11. A photopenic liver lesion in hepatic segment 8 is also present and may represent other benign process. The gallbladder appears normal. The bile ducts are nondilated. The spleen, pancreas, and adrenal glands appear normal. The kidneys are normal in size. There is no evidence of renal calculus or hydronephrosis. There is no evidence of bowel wall thickening or obstruction. No free air or free fluid is identified within the abdomen. There is no abdominopelvic lymphadenopathy. Musculoskeletal: Scattered osseous metastatic lesions are present. The lesions demonstrate ill-defined lucency. For reference, a xiphoid process lesion demonstrates an SUV max of 13.9. An L4 vertebral body lesion SUV max measures 10. The right iliac wing lesion demonstrates SUV max of 8.0. IMPRESSION: 1. Right middle lobe malignancy is present with metastatic lymph nodes in the right hilum and throughout the mediastinum. Multiple liver metastases and scattered osseous metastases are present. 2. The lesion in hepatic segment 8 is photopenic and likely represents an unrelated benign lesion. 3. Asymmetric FDG activity in the region of the left base of the tongue may represent asymmetric salivary excretion. Correlation with direct visualization is recommended. DICTATION LOCATION: Location - [facility] Dimple Neff MD ORDERABLES Final Result * (ABNORMAL) CBC WITHOUT DIFFERENTIAL (08/14/2025 9:17 AM MUSEUM PREPARATOR) WBC 9.5 4.0 - 9.8 K/uL 08/14/2025 10:27 AM [facility] RBC 3.64(L) 3.90 - 4.90 M/uL 08/14/2025 10:27 AM [facility] HEMOGLOBIN 9.7(L) 11.8 - 14.8 g/dL 08/14/2025 10:27 AM [facility] HEMATOCRIT 30.6(L) 35.5 - 44.0 % 08/14/2025 10:27 AM [facility] MCV 84.1 82.0 - 99.0 fL 08/14/2025 10:27 AM [facility] MCH 26.6(L) 27.2 - 32.6 pg 08/14/2025 10:27 AM [facility] MCHC 31.7 31.5 - 35.5 g/dL 08/14/2025 10:27 AM [facility] PLATELETS 368(H) 140 - 350 K/uL 08/14/2025 10:27 AM [facility] MPV 9.5 9.3 - 12.4 fL 08/14/2025 10:27 AM [facility] RDW 14.6(H) 11.5 - 14.5 % 08/14/2025 10:27 AM MUSEUM PREPARATOR [facility] RDW-STDEV 44.6 37.1 - 48.7 fL 08/14/2025 10:27 AM MUSEUM PREPARATOR [facility] Blood Venipuncture / Unknown 08/14/2025 9:17 AM MUSEUM PREPARATOR 08/14/2025 9:47 AM MUSEUM PREPARATOR us Mera [place] [employer] HEMATOLOGY ORDERABLES Shalini norris Result [facility] CLIA# [id number] [address] [place] [address] * [facility] DNA AND RNA SOLID TUMOR (08/13/2025 3:00 PM MUSEUM PREPARATOR) Reason for Study To identify somatic and germline mutations relevant to patient's cancer. 09/07/2025 8:20 AM MUSEUM PREPARATOR [facility] Genetic Diseases Assessed Cancer 09/07/2025 8:20 AM MUSEUM PREPARATOR [facility] Description of Ranges of DNA Sequences Examined 648 gene panel 09/07/2025 8:20 AM MUSEUM PREPARATOR [facility] Overall Interpretation positive 09/07/2025 8:20 AM MUSEUM PREPARATOR [facility] MSI Stable 09/07/2025 8:20 AM MUSEUM PREPARATOR [facility] TMB 11.6 m/MB 09/07/2025 8:20 AM MUSEUM PREPARATOR [facility] Portal [email or web address] 09/07/2025 8:20 AM MUSEUM PREPARATOR [facility] Comment:[facility] link PD-L1 Interpretation by 22C3 negative 09/07/2025 8:20 AM MUSEUM PREPARATOR [facility] PD-L1 Interpretation by 28-8 negative 09/07/2025 8:20 AM MUSEUM PREPARATOR [facility] PD-L1 Interpretation by SP142 negative 09/07/2025 8:20 AM MUSEUM PREPARATOR [facility] PD-L1 by SP142 Tiss Q <1 % 09/07/2025 8:20 AM MUSEUM PREPARATOR [facility] PD-L1 (22C3) Combined Positive Score <1 09/07/2025 8:20 AM MUSEUM PREPARATOR [facility] PD-L1 (22C3) Tumor Proportion Score <1 % 09/07/2025 8:20 AM MUSEUM PREPARATOR [facility] PD-L1 (28-8) Cells.PD-L1/100 viab zina NFr Tiss ImStn <1 % 09/07/2025 8:20 AM MUSEUM PREPARATOR [facility] PD-L1 (SP142) Cells.PD-L1/100 viab zina NFr Tiss ImStn <1 % 09/07/2025 8:20 AM MUSEUM PREPARATOR [facility] PD-L1 Interpretation by SP263 negative 09/07/2025 8:20 AM MUSEUM PREPARATOR [facility] PD-L1 (SP263) Cells. PD-L1/100 viab zina NFr Tiss ImStn <1 % 09/07/2025 8:20 AM MUSEUM PREPARATOR [facility] Pertinent Negatives EGFR, KRAS, BRAF, ALK, ROS1, RET, MET, ERBB2 (HER2) 09/07/2025 8:20 AM MUSEUM PREPARATOR [facility] Low Coverage Regions [id number] 09/07/2025 8:20 AM MUSEUM PREPARATOR [facility] Therapy Count 2 09/07/2025 8:20 AM MUSEUM PREPARATOR [facility]us: Potential Therapy 1 Gene: N/A Variant: N/A Match Type: tmb Agent: Pembrolizumab Drug Class: Anti-PD-1 MAb Tissue: Solid Tumors Association: Response Evidence Status: Consensus Evidence ID: FDA KDB Variant: TMB-High MSK Associated Evidence: MSK OncoKB, Level 1 Label: FDA On Label FDA Approved?: Yes On label?: Yes 09/07/2025 8:20 AM MUSEUM PREPARATOR [facility]: Potential Therapy 2 Gene: 952^BARD1^[facility] Variant: BARD1 c.1677+1G>T Match Type: snvIndel Match Type Description: BARD1 c.1677+1G>T Agent: Olaparib Drug Class: PARP Inhibitor Tissue: Prostate Cancer Association: Response Evidence Status: Consensus Evidence ID: NCCN KDB Variant: [id number]-ta-[id number] Label: FDA Off Label FDA Approved?: Yes On label?: No 09/07/2025 8:20 AM MUSEUM PREPARATOR [facility] Trial Count 3 09/07/2025 8:20 AM MUSEUM PREPARATOR [facility] Tempus: Clinical Trial Match 1 Clinical Trial NCT ID: [id number] Clinical Trial Title: A Study of PARG Inhibitor [id number] in Participants With Advanced Solid Tumors Clinical Trial URL: [email or web address] [facility].gov/[email or web address]/linda [email or web address] Clinical Phase: Phase 1 Clinical Trial Matches: BARD1 c.1677+1G>T mutation Clinical Trial Distance and Location: [address], [place], [place] 09/07/2025 8:20 AM MUSEUM PREPARATOR [facility] Tempus: Clinical Trial Match 2 Clinical Trial NCT ID: [id number] Clinical Trial Title: A Study of a Selective T Cell Receptor (TCR) Targeting, Bifunctional Antibody-fusion Molecule [id number] in Participants With Advanced Solid Tumors Clinical Trial URL: [email or web address] [email or web address].gov/[email or web address]/[email or web address] Clinical Phase: Phase 1/Phase 2 Clinical Trial Matches: TMB-High Clinical Trial Distance and Location: [address] [place], [place] 09/07/2025 8:20 AM MUSEUM PREPARATOR [facility] Tempus: Clinical Trial Match 3 Clinical Trial NCT ID: [id number] Clinical Trial Title: A Study of [id number] in Participants With Advanced or Metastatic Solid Tumors Clinical Trial URL: [email or web address] [facility].gov/ct2/linda [id number] Clinical Phase: Phase 1 Clinical Trial Matches: 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 No gene rearrangements nor reportable altered splicing events were identified from RNA sequencing. 09/07/2025 8:20 AM MUSEUM PREPARATOR [facility] Germline Variant Note No normal sample was received, therefore tumor/normal matched analysis was not performed. 09/07/2025 8:20 AM MUSEUM PREPARATOR [facility] HER2 Result NEGATIVE 09/07/2025 8:20 AM MUSEUM PREPARATOR [facility] Comment:IHC Interprete: HER2 : 0, (0%), DOES NOT MEET FDA APPROVAL; See CommentComment: The IHC slide stained with Her2 demonstrates tumor cells with diffusestrong cytoplasmic staining and scattered foci of nuclear staining, nodefinitive membranous staining is present. This staining pattern was not partof the qualifying criteria for the Maggy Pantumor-02 trial therefore thesignificance with respect to predicting a response to Her2 antibody drugconjugates is unknown. Clinical correlation is recommended. Score 0 09/07/2025 8:20 AM MUSEUM PREPARATOR [facility] % Cells Complete Membrane Staining 0% 09/07/2025 8:20 AM MUSEUM PREPARATOR [facility] Tissue 08/13/2025 3:00 PM MUSEUM PREPARATOR 08/13/2025 3:00 PM MUSEUM PREPARATOR Narrative This result has genomic variants that were not included in this document. Dimple Neff MD MOLECULAR ORDERABLES Edited Res ult - Final Performing Organization Address City/[facility]/ZIP Co de Phone Number [facility] [address], [address] [place] [id number], * [facility] X[facility] NORMAL BLOOD (08/13/2025 3:00 PM MUSEUM PREPARATOR) Pathologist [facility] Portal 08/13/2025 11:00 PM MUSEUM PREPARATOR [facility] Comment:See NGS Report for R esults. Blood specimen (specimen) 08/13/2025 3:00 PM MUSEUM PREPARATOR 08/13/2025 3:02 PM MUSEUM PREPARATOR Dimple Neff MD MOLECULAR ORDERABLES Final Resu lt Performing Organization Address [facility]/ZIP Co de Phone Number [facility] [address], [address] [place] [address], [facility] [address], [address] [place] [address] * ECHOCARDIOGRAM W/ CONTRAST AGENT (08/13/2025 11:27 AM MUSEUM PREPARATOR) Pathologist [facility] [place] EJECTION FRACTION 60 INTERFACE SYSTEM 08/13/2025 10:3 8 AM MUSEUM PREPARATOR Narrative INTERFACE SYSTEM - 08/13/2025 11:[address] [address] [email or web address] Transthoracic Echocardiogram Patient: Anat Davey Study ID: ECHO COMPLETE - Gender: F : 1960 Age: 65 Race: Height 160cm Study Date: 08/13/2025 Weight: 41.7kg Access. #: [id number] BP: *Referring Physician:* Anjali Santana Alpana *Ordering Physician:* Anjali Santana sawmill moulder operator: Nurse: STUDY CONCLUSIONS: SUMMARY: - Left ventricle: The cavity size was normal. Wall thickness was normal. Global systolic function is normal. The estimated ejection fraction is 55-60%. For Epic reporting: the left ventricular ejection fraction is 60% . Diastolic function assessment consistent with abnormal left ventricular relaxation (grade 1 diastolic dysfunction). - Mitral valve: Moderate regurgitation. - Left atrium: The atrium is normal in size. - Right ventricle: The cavity size is normal. Systolic function is normal. - Pericardium: There is a small pericardial effusion, no hemodynamic effect. Cardiac Anatomy: LEFT VENTRICLE: The cavity size was normal. Wall thickness was normal. Global systolic function is normal. The estimated ejection fraction is 55-60%. For Epic reporting: the left ventricular ejection fraction is 60% . Diastolic function assessment consistent with abnormal left ventricular relaxation (grade 1 diastolic dysfunction). AORTIC VALVE: Structurally normal valve. Trileaflet. No significant regurgitation. The mean systolic gradient is 5mm Hg. The peak systolic gradient is 8mm Hg. The LVOT to aortic valve VTI ratio is 0.69. The valve area is 2.2cm^2. The ratio of LVOT to aortic valve peak velocity is 0.73. AORTA: Aortic root: The root is normal-sized. MITRAL VALVE: Structurally normal valve. Moderate regurgitation. LEFT ATRIUM: The atrium is normal in size. RIGHT VENTRICLE: The cavity size is normal. Systolic function is normal. PULMONIC VALVE: Structurally normal valve. No significant regurgitation. TRICUSPID VALVE: Structurally normal valve. No significant regurgitation. RIGHT ATRIUM: The atrium was normal in size. SYSTEMIC VEINS: Inferior vena cava: The IVC is normal-sized. PERICARDIUM: There is a small pericardial effusion, no hemodynamic effect. Measurements Left ventricle Value Ref IVS, ED, LAX (H) 1.0 cm 0.6 - 0.9 NATHALIE, LAX (L) 3.0 cm 3.8 - 5.2 NATHALIE/bsa, LAX (L) 2.2 cm/m^2 2.3 - 3.1 NATHALIE, LAX chord (N) 4.5 cm 3.8 - 5.2 ESD, LAX chord (N) 3.0 cm 2.2 - 3.5 NATHALIE/bsa, LAX chord (H) 3.2 cm/m^2 2.3 - 3.1 ESD/bsa, LAX chord (H) 2.2 cm/m^2 1.3 - 2.1 FS, LAX chord (N) 33 % 27 - 45 IVS, ED (H) 1.0 cm 0.6 - 0.9 PW, ED (H) 1.3 cm 0.6 - 0.9 EDV, 2-p (N) 102 ml 46 - 106 ESV, 2-p (H) 52 ml 14 - 42 EF, 2-p (L) 49 % 54 - 74 SV, 2-p 50 ml --------- SV/bsa, 2-p 35.8 ml/m^2 --------- E', lat raina, TDI (N) 10.2 cm/sec >=10.0 E/e', lat raina, TDI (N) 5 <=13 E', med raina, TDI (N) 10.3 cm/sec >=7.0 E/e', med raina, TDI 5 --------- E', avg, TDI 10.3 cm/sec --------- E/e', avg, TDI (N) 5 <=14 LVOT Value Ref Diam, S 2.0 cm --------- Area 3.1 cm^2 --------- Peak ann-marie, S 1.02 m/sec --------- VTI, S 17.5 cm --------- Right ventricle Value Ref NATHALIE minor ax, A4C base (N) 2.8 cm 2.5 - 4.1 TAPSE, MM (L) 1.2 cm >=1.7 S' lateral (N) 18.7 cm/sec >=9.5 Left atrium Value Ref AP dim, ES (N) 3.0 cm 2.7 - 3.8 AP dim index, ES (N) 2.2 cm/m^2 1.5 - 2.3 SI dim, A4C 5.1 cm --------- Area ES, A4C (N) 16 cm^2 <=20 Area/bsa ES, A4C 11.73 cm^2/m^2 --------- SI dim, A2C 4.4 cm --------- SI dim, shorter 4.4 cm --------- Vol, ES, 1-p A2C (N) 38 ml 22 - 52 Vol/bsa, ES, 1-p A2C (N) 28 ml/m^2 13 - 40 Vol, ES, 2-p 42 ml --------- Vol/bsa, ES, 2-p (N) 30 ml/m^2 16 - 34 LA/Ao root ratio 1.15 --------- Right atrium Value Ref SI dim, ES, A4C (N) 4.2 cm 3.4 - 5.3 SI dim/bsa, ES, A4C (N) 3.0 cm/m^2 1.9 - 3.1 Area, ES, A4C (N) 10 cm^2 10 - 18 Vol, ES, 1-p A4C 22 ml --------- Vol/bsa, ES, 1-p A4C (N) 16 ml/m^2 9 - 33 Aortic valve Value Ref Peak v, S 1.4 m/sec --------- Mean v, S 1.04 m/sec --------- VTI, S 25.3 cm --------- Mean grad, S 5 mm Hg --------- Peak grad, S 8 mm Hg --------- LVOT/AV, VTI ratio 0.69 --------- BETTY, VTI 2.2 cm^2 --------- BETTY/bsa, VTI 1.56 cm^2/m^2 --------- LVOT/AV, Vpeak ratio 0.73 --------- BETTY, Vmax 2.3 cm^2 --------- BETTY/bsa, Vmax 1.65 cm^2/m^2 --------- Mitral valve Value Ref Peak E 0.56 m/sec --------- Peak A 0.82 m/sec --------- Decel time 148 ms --------- Peak E/A ratio 0.7 --------- Max MR v 5.05 m/sec --------- Peak LV-LA grad S 102 mm Hg --------- Aortic root Value Ref Root diam, 2.6 cm --------- Systemic veins Value Ref Estimated RA pressure 3 mm Hg --------- Legend: (L) and (H) cyrus values outside specified reference range. (N) pratt values inside specified reference range. Procedure data: Procedure information: A transthoracic echocardiogram was performed. Scanning was performed from the parasternal, apical, and subcostal acoustic windows. Intravenous contrast (Definity) was administered. Transthoracic echocardiogram. Complete 2D, complete spectral Doppler, and color Doppler. Birthdate: Patient birthdate: 1960. Age: Patient is 65year(s) old. Sex: gender: female. Height: 160cm. 63in. Weight: 41.7kg. 92lb. Body mass index: 16.3kg/m^2. Body surface area: 1.39m^2. Study date: Study date: 08/13/2025. Study time: 10:38 AM. Prepared and Electronically Authenticated Cyrus Bernal [id number]:[id number] Procedure Note Cyrus Bernal MD - 08/13/[address] [place] [address] [email or web address] Transthoracic Echocardiogram Patient: Anat Davey Study ID: ECHO COMPLETE - Gender: F : 1960 Age: 65 Race: Height 160cm Study Date: 08/13/2025 Weight: 41.7kg Access. #: [id number] BP: *Referring Physician:* Anjali Santana Alpana *Ordering Physician:* Anjali Santana sawmill moulder operator: Nurse: STUDY CONCLUSIONS: SUMMARY: - Left ventricle: The cavity size was normal. Wall thickness was normal. Global systolic function is normal. The estimated ejection fraction is 55-60%. For Epic reporting: the left ventricular ejection fraction is60% . Diastolic function assessment consistent with abnormal leftventricular relaxation (grade 1 diastolic dysfunction). - Mitral valve: Moderate regurgitation. - Left atrium: The atrium is normal in size. - Right ventricle: The cavity size is normal. Systolic function isnormal. - Pericardium: There is a small pericardial effusion, no hemodynamiceffect. Cardiac Anatomy: LEFT VENTRICLE: The cavity size was normal. Wall thickness was normal.Global systolic function is normal. The estimated ejection fraction is 55-60%.For Epic reporting: the left ventricular ejection fraction is 60% .Diastolic function assessment consistent with abnormal left ventricular relaxation (grade 1 diastolic dysfunction). AORTIC VALVE: Structurally normal valve. Trileaflet. No significant regurgitation. The mean systolic gradient is 5mm Hg. The peak systolic gradient is 8mm Hg. The LVOT to aortic valve VTI ratio is 0.69. The valvearea is 2.2cm^2. The ratio of LVOT to aortic valve peak velocity is 0.73. AORTA: Aortic root: The root is normal-sized. MITRAL VALVE: Structurally normal valve. Moderate regurgitation. LEFT ATRIUM: The atrium is normal in size. RIGHT VENTRICLE: The cavity size is normal. Systolic function isnormal. PULMONIC VALVE: Structurally normal valve. No significantregurgitation. TRICUSPID VALVE: Structurally normal valve. No significantregurgitation. RIGHT ATRIUM: The atrium was normal in size. SYSTEMIC VEINS: Inferior vena cava: The IVC is normal-sized. PERICARDIUM: There is a small pericardial effusion, no hemodynamiceffect. Measurements Left ventricle Value Ref IVS, ED, LAX (H) 1.0 cm 0.6 - 0.9 NATHALIE, LAX (L) 3.0 cm 3.8 - 5.2 NATHALIE/bsa, LAX (L) 2.2 cm/m^2 2.3 - 3.1 NATHALIE, LAX chord (N) 4.5 cm 3.8 - 5.2 ESD, LAX chord (N) 3.0 cm 2.2 - 3.5 NATHALIE/bsa, LAX chord (H) 3.2 cm/m^2 2.3 - 3.1 ESD/bsa, LAX chord (H) 2.2 cm/m^2 1.3 - 2.1 FS, LAX chord (N) 33 % 27 - 45 IVS, ED (H) 1.0 cm 0.6 - 0.9 PW, ED (H) 1.3 cm 0.6 - 0.9 EDV, 2-p (N) 102 ml 46 - 106 ESV, 2-p (H) 52 ml 14 - 42 EF, 2-p (L) 49 % 54 - 74 SV, 2-p 50 ml --------- SV/bsa, 2-p 35.8 ml/m^2 --------- E', lat raina, TDI (N) 10.2 cm/sec >=10.0 E/e', lat raina, TDI (N) 5 <=13 E', med raina, TDI (N) 10.3 cm/sec >=7.0 E/e', med raina, TDI 5 --------- E', avg, TDI 10.3 cm/sec --------- E/e', avg, TDI (N) 5 <=14 LVOT Value Ref Diam, S 2.0 cm --------- Area 3.1 cm^2 --------- Peak ann-marie, S 1.02 m/sec --------- VTI, S 17.5 cm --------- Right ventricle Value Ref NATHALIE minor ax, A4C base (N) 2.8 cm 2.5 - 4.1 TAPSE, MM (L) 1.2 cm >=1.7 S' lateral (N) 18.7 cm/sec >=9.5 Left atrium Value Ref AP dim, ES (N) 3.0 cm 2.7 - 3.8 AP dim index, ES (N) 2.2 cm/m^2 1.5 - 2.3 SI dim, A4C 5.1 cm --------- Area ES, A4C (N) 16 cm^2 <=20 Area/bsa ES, A4C 11.73 cm^2/m^2 --------- SI dim, A2C 4.4 cm --------- SI dim, shorter 4.4 cm --------- Vol, ES, 1-p A2C (N) 38 ml 22 - 52 Vol/bsa, ES, 1-p A2C (N) 28 ml/m^2 13 - 40 Vol, ES, 2-p 42 ml --------- Vol/bsa, ES, 2-p (N) 30 ml/m^2 16 - 34 LA/Ao root ratio 1.15 --------- Right atrium Value Ref SI dim, ES, A4C (N) 4.2 cm 3.4 - 5.3 SI dim/bsa, ES, A4C (N) 3.0 cm/m^2 1.9 - 3.1 Area, ES, A4C (N) 10 cm^2 10 - 18 Vol, ES, 1-p A4C 22 ml --------- Vol/bsa, ES, 1-p A4C (N) 16 ml/m^2 9 - 33 Aortic valve Value Ref Peak v, S 1.4 m/sec --------- Mean v, S 1.04 m/sec --------- VTI, S 25.3 cm --------- Mean grad, S 5 mm Hg --------- Peak grad, S 8 mm Hg --------- LVOT/AV, VTI ratio 0.69 --------- BETTY, VTI 2.2 cm^2 --------- BETTY/bsa, VTI 1.56 cm^2/m^2 --------- LVOT/AV, Vpeak ratio 0.73 --------- BETTY, Vmax 2.3 cm^2 --------- BETTY/bsa, Vmax 1.65 cm^2/m^2 --------- Mitral valve Value Ref Peak E 0.56 m/sec --------- Peak A 0.82 m/sec --------- Decel time 148 ms --------- Peak E/A ratio 0.7 --------- Max MR v 5.05 m/sec --------- Peak LV-LA grad S 102 mm Hg --------- Aortic root Value Ref Root diam, 2.6 cm --------- Systemic veins Value Ref Estimated RA pressure 3 mm Hg --------- Legend: (L) and (H) cyrus values outside specified reference range. (N) pratt values inside specified reference range. Procedure data: Procedure information: A transthoracic echocardiogram was performed.Scanning was performed from the parasternal, apical, and subcostal acousticwindows. Intravenous contrast (Definity) was administered. Transthoracic echocardiogram. Complete 2D, complete spectral Doppler, and colorDoppler. Birthdate: Patient birthdate: 1960. Age: Patient is 65year(s)old. Sex: gender: female. Height: 160cm. 63in. Weight: 41.7kg.92lb. Body mass index: 16.3kg/m^2. Body surface area: 1.39m^2. Studydate: Study date: 08/13/2025. Study time: 10:38 AM. Prepared andElectronically Authenticated Cyrus Bernal [id number]:51:51 us Anjali Santana MD US ORDERABLES Final Result Performing Organization Address City/State/[facility] Co de Phone Number INTERFACE SYSTEM Refer to clinic/hospital department * US VENOUS DOPPLER LEG BILATERAL (08/13/2025 9:57 AM MUSEUM PREPARATOR) Anatomical Region Laterality Modality Lower Extremity Ultrasound 08/13/2025 10:4 2 AM MUSEUM PREPARATOR Narrative 08/13/2025 2:31 PM MUSEUM PREPARATOR [address] [address] [email or web address] Venous Exam Complete Lower Extremity Duplex Patient: Anat Davey Study ID: [id number] Gender: F : 1960 Age: 65 Race: Height Study Date: 08/13/2025 Weight: Access. #: [id number] *Referring Physician:Anjali Arango Alpana *Ordering Physician:Anjali Arango *Patient Care Assistant:Amber Sorto History: PMH: No prior study is available for comparison. Pulmonary embolus. Study data: Study status: Routine. Complete lower extremity venous duplex evaluation. Doppler flow study including spectral analysis, color and alejo scale imaging. Birthdate: Patient birthdate: 1960. Age: Patient is 65year(s) old. Sex: gender: female. Study date: Study date: 08/13/2025. Study time: 10:42 AM. Location: Vascular laboratory. Patient status: Inpatient. Impressions Study data: No prior study is available for comparison. No evidence of deep vein thrombosis involving the visualized veins of the bilateral lower extremities. Tables: Venous: + +-------+ + !Location !Overall!Flow properties ! + +-------+ + !Right common femoral !Patent !Phasic; spontaneous; normal augmentation; ! ! ! !compressible; no reflux ! + +-------+ + !Right femoral !Patent !Compressible ! + +-------+ + !Right profunda femoral!Patent !Compressible ! + +-------+ + !Right popliteal !Patent !Phasic; spontaneous; normal augmentation; ! ! ! !compressible; no reflux ! + +-------+ + !Right posterior tibial!Patent !Compressible ! + +-------+ + !Right peroneal !Patent !Compressible ! + +-------+ + !Left common femoral !Patent !Phasic; spontaneous; normal augmentation; ! ! ! !compressible; no reflux ! + +-------+ + !Left femoral !Patent !Compressible ! + +-------+ + !Left profunda femoral !Patent !Compressible ! + +-------+ + !Left popliteal !Patent !Phasic; spontaneous; normal augmentation; ! ! ! !compressible; no reflux ! + +-------+ + !Left posterior tibial !Patent !Compressible ! + +-------+ + !Left peroneal !Patent !Compressible ! + +-------+ + *Velocities are expressed in cm/s, Diameters are expressed in mm Prepared and Electronically Authenticated Queenie Mueller [id number]:31:34 Procedure Note Queenie Mueller MD - 08/13/2025 [address] [place] [address] [email or web address] Venous Exam Complete Lower Extremity Duplex Patient: Anat Davey Study ID:[id number] Gender: F :1960 Age: 65 Race: Height Study Date:08/13/2025 Weight: Access. #:[id number] *Referring Physician:Anjali Arango Alpana *Ordering Physician:Anjali Arango *Patient Care Assistant:* Amber Catherine History: PMH: No prior study is available for comparison. Pulmonary embolus. Study data: Study status: Routine. Complete lower extremity venous duplex evaluation. Doppler flow study including spectral analysis,color and alejo scale imaging. Birthdate: Patient birthdate: 1960.Age: Patient is 65year(s) old. Sex: gender: female. Study date:Study date: 08/13/2025. Study time: 10:42 AM. Location: Vascular laboratory. Patient status: Inpatient. Impressions Study data: No prior study is available for comparison. No evidence ofdeep vein thrombosis involving the visualized veins of the bilateral lower extremities. Tables: Venous: + +-------+ + !Location !Overall!Flow properties! + +-------+ + !Right common femoral !Patent !Phasic; spontaneous; normal augmentation;! ! ! !compressible; no reflux! + +-------+ + !Right femoral !Patent !Compressible! + +-------+ + !Right profunda femoral!Patent !Compressible! + +-------+ + !Right popliteal !Patent !Phasic; spontaneous; normal augmentation;! ! ! !compressible; no reflux! + +-------+ + !Right posterior tibial!Patent !Compressible! + +-------+ + !Right peroneal !Patent !Compressible! + +-------+ + !Left common femoral !Patent !Phasic; spontaneous; normal augmentation;! ! ! !compressible; no reflux! + +-------+ + !Left femoral !Patent !Compressible! + +-------+ + !Left profunda femoral !Patent !Compressible! + +-------+ + !Left popliteal !Patent !Phasic; spontaneous; normal augmentation;! ! ! !compressible; no reflux! + +-------+ + !Left posterior tibial !Patent !Compressible! + +-------+ + !Left peroneal !Patent !Compressible! + +-------+ + *Velocities are expressed in cm/s, Diameters are expressed in mm Prepared and Electronically Authenticated Queenie Mueller [id number] us Anjali Santana MD ORDERABLES Final Result * MRI BRAIN W WO CONTRAST (08/11/2025 5:50 PM MUSEUM PREPARATOR) Anatomical Region Laterality Modality Head Magnetic Resonan ce 08/11/2025 5:51 PM MUSEUM PREPARATOR Impressions 08/11/2025 6:13 PM MUSEUM PREPARATOR IMPRESSION: 1. 1.0 x 0.8 x 1.0 cm T2 hyperintense lesion in the left marco antonio. Given that this lesion demonstrates no surrounding brain edema or abnormal enhancement, it is favored to represent a cavernous malformation. 2. No evidence of intracranial metastatic disease. 3. No acute infarct, acute intracranial hemorrhage, hydrocephalus. 4. Mild subcortical and deep periventricular white matter FLAIR hyperintensities, a nonspecific finding, most commonly seen with chronic small vessel ischemic disease. DICTATION LOCATION: Location 4 Narrative 08/11/2025 6:13 PM MUSEUM PREPARATOR MRI BRAIN W WO CONTRAST Date: 08/11/2025 5:50 PM Indication: Brain metastases suspected Comparison: None. Technique: Multiplanar multisequence MRI of the brain was performed with and without intravenous contrast using the brain tumor protocol. CONTRAST: GADOTERIDOL 279.3 MG/ML INTRAVENOUS SOLUTION Given:9 mL Findings: Patient motion artifact degrades image quality. T2 hyperintense lesion with peripheral hemosiderin staining in the marco antonio measuring 1.0 x 0.8 x 1.0 cm there is no stranding T2 hyperintense signal in the adjacent brain parenchyma. No associated enhancement. No acute infarct. Mild subcortical and deep periventricular white matter FLAIR hyperintensities, a nonspecific finding, most commonly seen with chronic small vessel ischemic disease. No acute hemorrhage. The ventricles are normal in size and configuration without hydrocephalus. No abnormal enhancement. The scalp and calvarium are normal. The pituitary and sella are normal. No Chiari malformation. Incompletely characterized degenerative spondylosis of the visualized upper cervical spine. The visualized orbits and globes are normal. The visualized paranasal sinuses are clear. The mastoid air cells are clear. Normal flow voids within the vertebral, basilar, and internal carotid arteries indicating patency. Procedure Note Josue Albarado MD - 08/11/2025 MRI BRAIN W WO CONTRAST Date: 08/11/2025 5:50 PM Indication: Brain metastases suspected Comparison: None. Technique: Multiplanar multisequence MRI of the brain was performed with and without intravenous contrast using the brain tumor protocol. CONTRAST: GADOTERIDOL 279.3 MG/ML INTRAVENOUS SOLUTION Given:9 mL Findings: Patient motion artifact degrades image quality. T2 hyperintense lesion with peripheral hemosiderin staining in the marco antonio measuring 1.0 x 0.8 x 1.0 cm there is no stranding T2 hyperintense signal in the adjacent brain parenchyma. No associated enhancement. No acute infarct. Mild subcortical and deep periventricular white matter FLAIR hyperintensities, a nonspecific finding, most commonly seen with chronic small vessel ischemic disease. No acute hemorrhage. The ventricles are normal in size and configuration without hydrocephalus. No abnormal enhancement. The scalp and calvarium are normal. The pituitary and sella are normal. No Chiari malformation. Incompletely characterized degenerative spondylosis of the visualized upper cervical spine. The visualized orbits and globes are normal. The visualized paranasal sinuses are clear. The mastoid air cells are clear. Normal flow voids within the vertebral, basilar, and internal carotid arteries indicating patency. IMPRESSION: 1. 1.0 x 0.8 x 1.0 cm T2 hyperintense lesion in the left marco antonio. Given that this lesion demonstrates no surrounding brain edema or abnormal enhancement, it is favored to represent a cavernous malformation. 2. No evidence of intracranial metastatic disease. 3. No acute infarct, acute intracranial hemorrhage, hydrocephalus. 4. Mild subcortical and deep periventricular white matter FLAIR hyperintensities, a nonspecific finding, most commonly seen with chronic small vessel ischemic disease. DICTATION LOCATION: Location 4 us Ravi Diaz MD MR ORDERABLES Final Result * CT ABDOMEN PELVIS W WO CONTRAST (08/11/2025 3:07 PM MUSEUM PREPARATOR) Anatomical Region Laterality Modality Abdomen Computed Tomogra phy 08/11/2025 2:47 PM MUSEUM PREPARATOR Impressions 08/11/2025 4:48 PM MUSEUM PREPARATOR IMPRESSION: 1. Normal kidneys. No concerning renal lesion or hydronephrosis. 2. Multiple hypodense hepatic lesions suspicious for widespread hepatic metastatic disease. 3. Multiple benign hepatic hemangiomas. 4. New small bilateral pleural effusions and increased atelectasis in the lung bases. Right middle lobe consolidation has decreased from the prior. A 2.8 cm right hilar mass is incompletely imaged. Bulky mediastinal/hilar lymphadenopathy on the outside hospital chest CT from 08/05/2025 are above the [id number]. DICTATION LOCATION: Location 1 - [facility] 08/11/2025 4:48 PM MUSEUM PREPARATOR EXAMINATION: CT ABDOMEN PELVIS W WO CONTRAST DATE: 08/11/2025 3:07 PM HISTORY: Renal mass/cyst, indeterminate, mass Symptomatic HIV infection (CMS/HCC) TECHNIQUE: Computed tomography of the abdomen and pelvis was performed prior to and following the uneventful administration of intravenous contrast (IOPAMIDOL 61 % INTRAVENOUS SOLUTION (MULTI-DOSE BULK PACK) Given:90 mL) according to a renal mass protocol. The examination was performed with the adjustment of mA according to the patient size and/or the use of Iterative Reconstruction Technique. FINDINGS: Comparison made with a chest CT from 08/05/2025. LUNG BASES: There are new small bilateral pleural effusions and increased atelectasis in the lung bases. Right middle lobe consolidation has decreased from the prior. Previously seen bulky mediastinal/hilar lymphadenopathy on the prior CT from 08/05/2025 are mostly above the [id number]. A 2.8 cm right hilar mass is incompletely imaged. LIVER: Multiple benign enhancing hepatic hemangiomas with characteristic discontinuous peripheral nodular hyperenhancement in segment 4A, segment 8, and segment 7. Largest benign hemangioma in segment 8 measures 3.3 cm TV. There is an additional subcentimeter flash filling hemangioma or transient hepatic attenuation difference in the periphery of segment 7. There are two small subcentimeter flash filling hemangiomas in the left hemiliver.. Multiple hypodense hepatic lesions which cannot be characterized as definitively benign and suspicious for bilobar hepatic metastatic disease. Reference 1.8 cm lesion in segment four. Reference 1.7 cm lesion in hepatic segment six. At least five additional hypodense hepatic lesions in the right hemiliver. BILE DUCTS: Nondilated. GALLBLADDER: Gallbladder is nondistended. SPLEEN: Within normal limits. PANCREAS: No focal lesion. No main duct ectasia. ADRENALS: Within normal limits. KIDNEYS/URETERS: Kidneys enhance symmetrically. No enhancing renal lesion. No hydronephrosis or hydroureter. BOWEL: Large colonic stool burden. No bowel obstruction or acute inflammation. Normal appendix. PERITONEUM/RETROPERITONEUM: No ascites, free air, or enlarged mesenteric/retroperitoneal lymph nodes. PELVIC ORGANS: Hysterectomy. Urinary bladder is normal. No pelvic lymphadenopathy or free pelvic fluid. VESSELS: Within normal limits. ABDOMINAL WALL: Within normal limits. BONES: No suspicious lytic or blastic lesions. INCIDENTAL FINDINGS: None. Procedure Note Zia Carpenter, DO - 08/11/2025 EXAMINATION: CT ABDOMEN PELVIS W WO CONTRAST DATE: 08/11/2025 3:07 PM HISTORY: Renal mass/cyst, indeterminate, mass Symptomatic HIV infection (CMS/HCC) TECHNIQUE: Computed tomography of the abdomen and pelvis was performed prior to and following the uneventful administration of intravenous contrast (IOPAMIDOL 61 % INTRAVENOUS SOLUTION (MULTI-DOSE BULK PACK) Given:90 mL) according to a renal mass protocol. The examination was performed with the adjustment of mA according to the patient size and/or the use of Iterative Reconstruction Technique. FINDINGS: Comparison made with a chest CT from 08/05/2025. LUNG BASES: There are new small bilateral pleural effusions and increased atelectasis in the lung bases. Right middle lobe consolidation has decreased from the prior. Previously seen bulky mediastinal/hilar lymphadenopathy on the prior CT from 08/05/2025 are mostly above the [id number]. A 2.8 cm right hilar mass is incompletely imaged. LIVER: Multiple benign enhancing hepatic hemangiomas with characteristic discontinuous peripheral nodular hyperenhancement in segment 4A, segment 8, and segment 7. Largest benign hemangioma in segment 8 measures 3.3 cm TV. There is an additional subcentimeter flash filling hemangioma or transient hepatic attenuation difference in the periphery of segment 7. There are two small subcentimeter flash filling hemangiomas in the left hemiliver.. Multiple hypodense hepatic lesions which cannot be characterized as definitively benign and suspicious for bilobar hepatic metastatic disease. Reference 1.8 cm lesion in segment four. Reference 1.7 cm lesion in hepatic segment six. At least five additional hypodense hepatic lesions in the right hemiliver. BILE DUCTS: Nondilated. GALLBLADDER: Gallbladder is nondistended. SPLEEN: Within normal limits. PANCREAS: No focal lesion. No main duct ectasia. ADRENALS: Within normal limits. KIDNEYS/URETERS: Kidneys enhance symmetrically. No enhancing renal lesion. No hydronephrosis or hydroureter. BOWEL: Large colonic stool burden. No bowel obstruction or acute inflammation. Normal appendix. PERITONEUM/RETROPERITONEUM: No ascites, free air, or enlarged mesenteric/retroperitoneal lymph nodes. PELVIC ORGANS: Hysterectomy. Urinary bladder is normal. No pelvic lymphadenopathy or free pelvic fluid. VESSELS: Within normal limits. ABDOMINAL WALL: Within normal limits. BONES: No suspicious lytic or blastic lesions. INCIDENTAL FINDINGS: None. IMPRESSION: 1. Normal kidneys. No concerning renal lesion or hydronephrosis. 2. Multiple hypodense hepatic lesions suspicious for widespread hepatic metastatic disease. 3. Multiple benign hepatic hemangiomas. 4. New small bilateral pleural effusions and increased atelectasis in the lung bases. Right middle lobe consolidation has decreased from the prior. A 2.8 cm right hilar mass is incompletely imaged. Bulky mediastinal/hilar lymphadenopathy on the outside hospital chest CT from 08/05/2025 are above the [id number]. DICTATION LOCATION: Location 1 [facility] Ravi Diaz MD CT ORDERABLES Final Result * HISTOPLASMA ANTIGEN, URINE (08/08/2025 11:21 PM MUSEUM PREPARATOR) HISTOPLASMA GAL AG QN U <0.2 ng/mL 08/11/2025 11:56 PM MUSEUM PREPARATOR [facility] Comment: REFERENCE RANGE: <0.2 ng/mL Histoplasma galactomannan is frequently detected in urine from patients with disseminated histoplasmosis. However, a negative result does not exclude a diagnosis of histoplasmosis. Many patients with acute pulmonary disease or chronic cavitary disease do not exhibit antigenuria. Specimens from patients with other endemic fungal infections, such as blastomycosis, paracoccidioidomycosis, or candidiasis, may also be positive in this assay. This test should be used in conjunction with other diagnostics tests, including culture, molecular assays, and histology in making a final diagnosis. Urine URINE SPECIMEN OBTAINED BY CLEAN CATCH PROCEDURE / Unknown Collection / Unknown 08/08/2025 11:21 PM MUSEUM PREPARATOR 08/09/2025 12:02 AM MUSEUM PREPARATOR [facility] - 08/11/2025 11:56 PM MUSEUM PREPARATOR Performing Organization Information: Site ID: EZ Name: [facility], Address: [address] [place] [address] Director: Judy Connell MD,PhD,JOSH Mal Espino MD URINE ORDERABLES F inal Result [facility] [phone] * PROCEDURE REPORT (08/08/2025 10:21 PM MUSEUM PREPARATOR) Narrative Procedure Note Jeremy Owen MD - 08/08/2025 10:21 PM CST [facility] Pulmonology Patient Name: Anat Davey Procedure Date: 08/08/2025 Date of : 1960 Admit Type: Inpatient Attending MD: Jeremy Owen MD, Procedure: Bronchoscopy Indications: Right upper lobe mass, Mediastinal adenopathy Providers: Jeremy Owen MD (Doctor) Referring MD: Requesting Physician: Medicines: Midazolam 7 mg IV, Fentanyl 175 mcg IV Complications: No immediate complications Procedure: Informed consent was obtained for the procedure, including sedation. Risks of hypoxia, dental injury, lung injury/perforation, hemorrhage, infection, arrhythmia, and adverse drug reaction were discussed. A time-out process was performed and verified patient identification, procedure, correct patient position, as well as special equipment available. The patient was brought to the bronchoscopy suite. 2% lidocaine was used for topical anesthesia of the tracheobronchial tree. Oxygen saturation and vital signs were monitored continuously. The scope was introduced through the mouth, via the endotracheal tube (the patient was intubated for the procedure) and advanced to the tracheobronchial tree. The procedure was accomplished without difficulty. The patient tolerated the procedure fairly well. Moderate sedation start time 2:09 PM Moderate sedation end time 3:10 PM Findings: The carlos itself was sharp with no mucosal abnormalities, thereafter a comprehensive inspection of the entire bronchial tree was performed to the subsegmental level at which time a moderate amount of mucoid secretions were suctioned throughout the tracheobronchial tree. A radial probe was introduced into the anterior segment of the right upper lobe and radial ultrasound imaging was performed to localize an area of abnormal heterogeneous echogenicity. The probe was withdrawn and a bronchoalveolar lavage, cytology brushings, transbronchial needle aspirates and multiple transbronchial forceps biopsies were obtained under fluoroscopic guidance. Multiple acquisition modalities were utilized to improve the diagnostic yield. Thereafter, additional radial ultrasound imaging was performed in the inferior lingular segment to localize an area of abnormal echogenicity following which an additional bronchoalveolar lavage and multiple transbronchial forceps biopsies were obtained from the left upper lobe under fluoroscopic guidance. Thereafter, the bronchoscope was withdrawn without incident. An EBUS-bronchoscope was inserted via the indwelling airway and advanced to the right secondary carlos; linear ultrasound imaging demonstrated confluent areas of lymphadenopathy corresponding to station 11R. Multiple EBUS-guided needle aspirations and core biopsies were performed. Next, the bronchoscope was proximally retracted and further ultrasound imaging was performed that likewise demonstrated lymphadenopathy corresponding to Stations 7, 4L and 4R; additional EBUS-guided needle aspirations were performed. The EBUS-bronchoscope was withdrawn without incident. Specimens: 1.Transbronchial needle aspirates from the RUL 2.Bronchoalveolar lavage from the RUL and LAMAR 3.Cytology brushings from the RUL 4.Transbronchial forceps biopsies from the RUL and LAMAR 5.Needle aspirates from lymph node stations 4R, 4L, 7 and 11R 6.Needle core biopsy from lymph node station 11R Impression: - Right upper lobe mass - Mediastinal adenopathy Recommendation: - Await test results. - Chest X-ray post-procedure. Jeremy Owen MD 08/08/2025 10:21:07 PM Number of Addenda: 0 Note Initiated On: 08/08/2025 1:[address]; [place] [address] Jeremy Owen MD PROCEDURE/MINOR SURGICAL ORDE MAYRA Final Result * XR FLUORO LESS THAN 1 HOUR (08/08/2025 3:43 PM MUSEUM PREPARATOR) Narrative 08/08/2025 3:44 PM MUSEUM PREPARATOR Order information only. Exam was auto-finalized. us Jeremy Owen MD DIAGNOSTIC IMAGING ORDERABLES Final Result * HISTOPLASMA PCR (08/08/2025 3:26 PM MUSEUM PREPARATOR) Pathologist [facility] [place] SOURCE BAL RIGHT UPPER LUNG 08/14/2025 6:57 AM MUSEUM PREPARATOR [facility] HISTOPLASMA CAPSULATUM DNA NOT DETECTED 08/14/2025 6:57 AM MUSEUM PREPARATOR [facility] Comment: REFERENCE RANGE: NOT DETECTED This test was developed and its analytical performance characteristics have been determined by [employer]. It has not been cleared or approved by FDA. This assay has been validated pursuant to the CLIA regulations and is used for clinical purposes. BAL (Lung, RUL) Collection / Unknown 08/08/2025 3:26 PM MUSEUM PREPARATOR 08/08/2025 4:22 PM MUSEUM PREPARATOR Narrative [facility] - 08/14/2025 6:57 AM MUSEUM PREPARATOR Performing Organization Information: Site ID: EZ Name: [employer], Address: [address] [place] [id number] Director: Judy Connell MD,PhD,JOSH Result [facility] Jeremy Owen MD BODY FLUIDS AND STOOLS Final Result Performing Organization Address City/State/[facility] Co de Phone Number [facility] [phone] * (ABNORMAL) ASPERGILLUS ANTIGEN, BRONCHOALVEOLAR LAVAGE (08/08/2025 3:26 PM MUSEUM PREPARATOR) [facility] ASPERGILLUS GALACTOMANAN INDEX 0.77 08/11/2025 5:44 PM MUSEUM PREPARATOR [facility] ASPERGILLUS GALACTOMANNAN AG DETECTED( A) 08/11/2025 5:44 PM MUSEUM PREPARATOR [facility] Comment: Results for bronchoalveolar lavage between 0.50 and 1.00 have a lower specificity and positive predictive value. Recommend to support evidence of invasive aspergillosis with other clinical information. REFERENCE RANGE: <0.50 NOT DETECTED RESULT INTERPRETATION: An Index <0.50 is considered to be negative. An Index >=0.50 is considered to be positive. A positive result for patients being treated with piperacillin-tazobactam and other beta-lactam antibiotics such as amoxicillin-clavulanate may be false positive due to cross reactivity and should be viewed in conjunction with all clinical findings. Positive results with this assay has also been reported in patients infected with Penicillium marneffei and Cryptococcus. BAL (Lung, RUL) Collection / Unknown 08/08/2025 3:26 PM MUSEUM PREPARATOR 08/08/2025 4:22 PM MUSEUM PREPARATOR Narrative [facility] - 08/11/2025 5:44 PM MUSEUM PREPARATOR Performing Organization Information: Site ID: EZ Name: [employer], Address: [address] [place] [id number] Director: Judy Connell MD,PhD,JOSH Jeremy Owen MD MICROBIOLOGY - GENERAL ORDERA [facility] Final Result Performing Organization Address City/State/[facility] Co de Phone Number [facility] [phone] * PATHOLOGY (08/08/2025 3:26 PM MUSEUM PREPARATOR) CASE REPORT Surgical Pathology Report Case: [id number] Authorizing Provider: Jeremy Owen MD Collected: 08/08/2025 03:26 PM Ordering Location: [facility] Received: 08/09/2025 07:17 AM [facility] Pathologist: Abel Coppola MD Specimens: A) - Lung, RUL, Transbronchial bx B) - Lymph node, Needle core bx Station 11R C) - Lung, LAMAR, Transbronchial bx 3:08 PM MUSEUM PREPARATOR [facility] ADDENDUM 1 A request for [employer] was received on 08/13/[address] Dimple Neff. This test was performed on tissue from case [id number]. The case report, slides, and blocks for this case were retrieved from archives. The pathologist reviewed the original pathology report, examined candidate slides, and selected the most appropriate block(s). This selected material was forwarded to [facility] where the test was performed. The final report will be issued directly to the requesting physician. 3:08 PM [facility] Addendum electronically signed by Abel Coppola MD on 08/15/2025 at 1508 MUSEUM PREPARATOR FINAL DIAGNOSIS Lung, right upper lobe, transbronchial biopsy: - Poorly differentiated non-small cell carcinoma. Lymph node, station 11R, fine-needle aspiration: - Poorly differentiated non-small cell carcinoma. Lung, left upper lobe, transbronchial biopsy: - Bronchial mucosa and alveolar parenchyma with mild chronic inflammation. - No malignant population identified. 3:08 PM [facility] at 1841 MUSEUM PREPARATOR GROSS DESCRIPTION The specimens are received in three containers each labeled Anat Davey. Received in the first container additionally labeled RUL transbronchial biopsy are 4 pieces of red-brown tissue each measuring 0.1 cm in greatest dimension. All are submitted in cassettes A1 and A2. Received in the second container additionally labeled 11R needle core biopsy is a 2.0 x 1.0 x 0.1 cm aggregate of friable red-byrne tissue cores and core fragments. The contents of the container is filtered in a mesh bag and entirely submitted in cassettes B1 and B2. Received in the third container additionally labeled LAMAR transbronchial biopsy are 2 pieces of alejo-byrne possible tissue each measuring 0.1 cm in greatest dimension. All are submitted in cassettes C1 and C2. [facility] 3:08 PM [facility] MICROSCOPIC DESCRIPTION The slides are labeled [id number] and Anat Davey. This case reviewed in conjunction with the concomitant cytology material [id number]. The clinical history of a right hilar mass is noted. Sections of the right upper lobe transbronchial biopsy and 11R needle core biopsy show fragments of an epithelioid neoplasm composed of enlarged cells with moderate cytoplasm and prominent macronucleoli. Extensive necrosis is present. The cytoplasm is soft and slightly granular. Overt squamous or glandular differentiation is inapparent. An extended immunoprofile was performed on the 11R material, which is the most cellular. This population of interest is immunoreactive with pancytokeratin, CK7, and synaptophysin (diffuse, weak to moderate). No immunoreactivity is seen with TTF-1, Napsin A, chromogranin, GATA3, PAX8, p40, and/or CK20. CDX2 highlights rare tumor cells, weakly, of uncertain significance. Mucicarmine staining is negative (block A2). The proliferation index by Ki67 labeling is very brisk (greater than 60%). Sections of the right upper lobe transbronchial biopsy show bronchial mucosa infiltrated by this population of interest, which is shown to be immunoreactive with pancytokeratin, BerEp4, and CK7. TTF-1, p40, and CK20 are negative. No definitive intracytoplasmic mucin is highlighted via mucicarmine staining (block A2). Malignant cells are not identified in the left upper lobe transbronchial biopsy. AFB and GMS histochemical stains are negative (block C1). Additional levels were examined (blocks C1 and C2). The cytomorphology and immunophenotype are that of a poorly differentiated non-small cell carcinoma. Some neuroendocrine expression is seen, which may represent a component of large cell neuroendocrine carcinoma or be nonspecific. Features of small cell carcinoma are not identified. Molecular studies (e.g. ALK, ROS1, and EGFR) will be performed upon request. 5 3:08 PM [facility] OPERATIVE PROCEDURE Transbronchial biopsy 5 3:08 PM [facility] CLINICAL INFORMATION Lung mass, adenopathy, HIV + 5 3:08 PM [facility] COMMENT Special stain, immunohistochemical, and/or in situ hybridization results are interpreted with controls that demonstrate appropriate staining reactions. Note on use of immunohistochemistry reagents and in situ hybridization probes: These tests were developed and their performance characteristics determined by [facility], Department of Laboratory Medicine. It has not been cleared or approved by the U.S. Food and Drug Administration. The FDA has determined that such clearance or approval is not necessary. The test is used for clinical purposes. It should not be regarded as investigational or for research. This laboratory is certified to perform high complexity testing. Frozen section/operating room consultation, gross examination and dissection, and case sign out may have been performed in part or completely in the following laboratories: [facility], CLIA #[id number] [address] [place] [id number] [place] [address], [place] #[id number] [address] [place] [address] [facility]/[place], [facility] #[id number] [place] [address] This report was created with the [employer] voice-activated dictation system. Inherent to this system is the possibility of syntax, grammar, punctuation and other errors that could impact the interpretation of the report. If there are interpretative questions about aspects of this report, please contact the performing pathologist. 3:08 PM [facility] Tissue (Lung, RUL) Collection / Unknown 08/08/2025 3:26 PM MUSEUM PREPARATOR 08/09/2025 7:17 AM MUSEUM PREPARATOR Tissue specimen (specimen) ENTIRE LYMPH NODE / Unknown 08/08/2025 3:26 PM MUSEUM PREPARATOR 08/09/2025 7:17 AM MUSEUM PREPARATOR Tissue specimen (specimen) (Lung, LAMAR) 08/08/2025 3:26 PM MUSEUM PREPARATOR 08/09/2025 7:17 AM MUSEUM PREPARATOR Jeremy Owen MD PATHOLOGY/CYTOLOGY ORDERABLES Edited Result - Final [facility]# [id number] [address] [facility] [place] [address] * RESPIRATORY CULTURE WITH GRAM STAIN (08/08/2025 3:26 PM MUSEUM PREPARATOR) Only the most recent of2 resultswithin the time period is included. CULTURE No pathogens isolated. Normal respiratory nga reduced. 08/10/2025 10:10 AM [facility] GRAM STAIN Non diagnostic pattern 08/10/2025 10:10 AM [facility] GRAM STAIN 2+ (Few) Polymorphonuclear WBC 08/10/2025 10:10 AM [facility] Washings (Lung, bilateral) Collection / Unknown 08/08/2025 3:26 PM MUSEUM PREPARATOR 08/08/2025 4:22 PM MUSEUM PREPARATOR Jeremy Owen MD MICROBIOLOGY - GENERAL ORDERA BLES Final Result Performing Organization Address [facility]/ZIP Co de Phone Number [facility] CLIA# [id number] [address] [place] [address] * (ABNORMAL) FUNGUS CULTURE, OTHER (08/08/2025 3:26 PM MUSEUM PREPARATOR) Only the most recent of2 resultswithin the time period is included. CULTURE RANJEET ALBICANS(A) EZIO MCG/ML 09/04/2025 8:08 AM MUSEUM PREPARATOR [facility] Washings (Lung, bilateral) Collection / Unknown 08/08/2025 3:26 PM MUSEUM PREPARATOR 08/08/2025 4:22 PM MUSEUM PREPARATOR Jeremy Owen MD MICROBIOLOGY - GENERAL ORDERA BLES Final Result Performing Organization Address [facility] de Phone Number [facility] CLIA# [id number] [address] [place] [address] * PNEUMOCYSTIS JIROVECI BY PCR (08/08/2025 3:26 PM MUSEUM PREPARATOR) Only the most recent of2 resultswithin the time period is included. SOURCE BAL 08/10/2025 3:15 PM MUSEUM PREPARATOR [facility] PNEUMOCYSTIS JIROVECI BY PCR Not Detected Not Detected 08/10/2025 3:15 PM MUSEUM PREPARATOR [facility] Comment: (Note) This test was developed and its analytical performance characteristics have been determined by [employer]. It has not been cleared or approved by the U.S. Food and Drug Administration. This assay has been validated pursuant to the CLIA regulations and is used for clinical purposes. [facility] [address] [address],[address] [facility] [address] Laura Carranza MD, PhD BAL (Lung, RUL) Collection / Unknown 08/08/2025 3:26 PM MUSEUM PREPARATOR 08/08/2025 4:22 PM MUSEUM PREPARATOR Narrative [facility] - 08/10/2025 3:15 PM MUSEUM PREPARATOR Performing Organization Information: Site ID: [id number] Name: [facility] Address: [address] [place] [address], [address] [place] [address] Director: Laura Carranza MD,PhD Jeremy Owen MD BODY FLUIDS AND STOOLS Final Result [facility] [phone] * (ABNORMAL) CELL COUNT WITH DIFFERENTIAL, BODY FLUID (08/08/2025 3:26 PM MUSEUM PREPARATOR) APPEARANCE, BODY FLUID Cloudy 08/08/2025 5:47 PM MUSEUM PREPARATOR [facility] - [facility] COLOR, FLD [place] 08/08/2025 5:47 PM MUSEUM PREPARATOR [facility] - . [facility] NUCLEATED CELL, FLD 21 1,395 - 3,734 /uL 08/08/2025 5:47 PM MUSEUM PREPARATOR [facility] - [facility] RBC, FLD 8,225 No Ref Range Estab /uL 08/08/2025 5:47 PM MUSEUM PREPARATOR [facility] - [facility] NEUTROPHILS, FLD 81(H) 0 - 1 % 08/08/2025 5:47 PM MUSEUM PREPARATOR [facility] - [facility] LYMPHOCYTE, FLD 2(L) 18 - 36 % 08/08/2025 5:47 PM MUSEUM PREPARATOR [facility] - . [facility] BASOPHIL FLD 1 No Ref Range Estab % 08/08/2025 5:47 PM MUSEUM PREPARATOR [facility] - [facility] MONOCYTE/MACRO PHAGE, FLD 17(L) 64 - 80 % 08/08/2025 5:47 PM MUSEUM PREPARATOR [facility] - [facility] BAL (Lung, RUL) Collection / Unknown 08/08/2025 3:26 PM MUSEUM PREPARATOR 08/08/2025 4:22 PM MUSEUM PREPARATOR Jeremy Owen MD BODY FLUIDS AND STOOLS Final Result [facility] - [facility] CLIA# [id number] [address] [place] [address] * CYTOLOGY, NON GYNE (08/08/2025 3:26 PM MUSEUM PREPARATOR) CASE REPORT Medical Cytology Report Case: [id number] Authorizing Provider: Jeremy Owen MD Collected: 08/08/2025 03:26 PM Ordering Location: [facility] Surg Received: 08/09/2025 06:20 AM Step Down [facility] Pathologist: Lindsay Montalvo MD Specimens: A) - Fine needle aspirate, lymph node, Station 11R B) - Fine needle aspirate, lymph node, Station 7 C) - Fine needle aspirate, lymph node, Station 4L D) - Fine needle aspirate, lymph node, RUL E) - Fine needle aspirate, lymph node, station 4R F) - Bronchial brushing, RUL G) - BAL, right upper lobe, Station 4L H) - BAL, left upper lobe, RUL 5 6:44 PM MUSEUM PREPARATOR [facility] FINAL DIAGNOSIS Lymph node, station 11R, fine-needle aspiration: - Metastatic poorly differentiated non-small cell carcinoma. - Cell block supports the cytologic diagnosis. Lymph node, station 7, fine-needle aspiration: - Metastatic poorly differentiated non-small cell carcinoma. - Cell block supports the cytologic diagnosis. Lymph node, station 4L, fine-needle aspiration: - Metastatic poorly differentiated non-small cell carcinoma. - Cell block confirms the cytologic diagnosis. Lung, right upper lobe, fine-needle aspiration: - Poorly differentiated non-small cell carcinoma. - Cell block confirms the cytologic diagnosis. Lymph node, station 4R, fine-needle aspiration: - Metastatic poorly differentiated non-small cell carcinoma. - Cell block supports the cytologic diagnosis. Lung, right upper lobe, bronchoalveolar lavage: - Malignant cells present; non-small cell carcinoma. - GMS staining negative for fungal elements. Lung, left upper lobe, bronchoalveolar lavage: - Pulmonary macrophages and respiratory epithelial cells in a background of mixed inflammation. - No definitive malignant population identified. - GMS staining negative for fungal elements. 5 6:44 PM MUSEUM PREPARATOR [facility] at 1844 MUSEUM PREPARATOR GROSS DESCRIPTION Received are 8 containers all labeled Anat Davey. The first specimen (A) is additionally labeled station 11R FNA. It consists of 4 direct smears (2 Pap, 2 Diff-Quik stained) and a container of CytoLyt that is made into a ThinPrep and cell block. The second specimen (B) is additionally labeled station 7 FNA. It consists of 2 direct smears (1 Pap, 1 Diff-Quik stained) and a container of CytoLyt that is made into a ThinPrep and cell block. The third container (C) is additionally labeled station 4L FNA. It holds 30 mL of cloudy red CytoLyt fluid. One ThinPrep and one cell block made. The fourth container (D) is additionally labeled lymph node RUL FNA. It holds 30 mL of cloudy pink CytoLyt fluid. One ThinPrep and one cell block made. The fifth container (E) is additionally labeled station 4R FNA. It holds 30 mL of cloudy red CytoLyt fluid. One ThinPrep and one cell block made. The sixth container (F) is additionally labeled bronchial brush RUL. It holds 1 brush(s) in 30 mL of CytoLyt fluid. One ThinPrep made. The seventh container (G) is additionally labeled BAL RUL. It contains 1 mL of cloudy light red fluid. One ThinPrep made. The eighth container (H) is additionally labeled BAL LAMAR. It contains 1 mL of cloudy light red fluid. One ThinPrep made. 5 6:44 PM MUSEUM PREPARATOR [facility] MICROSCOPIC DESCRIPTION The slides are labeled [id number] and Anat Davey. This case is in conjunction with the concomitant surgical material [id number]. The radiographic description of a right hilar mass is noted. Microscopic examination of the lymph node aspirate and right upper lobe aspirate show involvement by a extensively necrotic epithelioid neoplasm composed of enlarged cells present as clusters and also singly dispersed pattern, with prominent nucleoli, in keeping with a non-small cell carcinoma. As evaluated in the 4L material, this population is immunoreactive with pancytokeratin and CK7 and shows focal questionable expression of synaptophysin. No immunoreactivity is seen with GATA3, chromogranin, p40, CDX2, and/or CK5/6. Mucicarmine staining is negative (block C2). As evaluated in the right upper lobe material (part D) the tumor cells express pancytokeratin and synaptophysin (weak, focal). No immunoreactivity is seen with p40, TTF-1, and/or Napsin A. GMS staining is negative for fungal elements (block D2). Coupled with the cytomorphology and immunophenotype demonstrated in the surgical material, the findings are that of a poorly differentiated non-small cell carcinoma. Some neuroendocrine differentiation is more apparent in the surgical material, and may represent a component of large cell neuroendocrine carcinoma or maybe nonspecific. Features of small cell carcinoma are not identified. Malignant cells are present in the right upper lobe BAL. GMS staining of each BAL is negative for fungal elements. Molecular studies (e.g. ALK, ROS1, and EGFR) will be performed upon request. 5 6:44 PM [facility] IMMEDIATE ASSESSMENT Lymph node, station 11R, fine-needle aspiration: Pass 1: Unsatisfactory Pass 2: Satisfactory Lymph node, station 7, fine-needle aspiration: Pass 3: Unsatisfactory Catrachita Valle, CT 5 6:44 PM [facility] OPERATIVE PROCEDURE Fine-needle aspiration, bronchial brushing, BAL 5 6:44 PM [facility] CLINICAL INFORMATION Lung mass, adenopathy, HIV + 5 6:44 PM [facility] COMMENT Special stain, immunohistochemical, and/or in situ hybridization results are interpreted with controls that demonstrate appropriate staining reactions. Note on use of immunohistochemistry reagents and in situ hybridization probes: These tests were developed and their performance characteristics determined by [facility], Department of Laboratory Medicine. It has not been cleared or approved by the U.S. Food and Drug Administration. The FDA has determined that such clearance or approval is not necessary. The test is used for clinical purposes. It should not be regarded as investigational or for research. This laboratory is certified to perform high complexity testing. Cases may have been signed out in part or completely in the following laboratories: [facility], CLIA #[id number] [address] [place] [id number] [place] [address]/[place], CLIA #[id number] [address] [place] [address] [address] [place] [address]. 6:44 PM MUSEUM PREPARATOR [facility] Body fluid SPECIMEN FROM LYMPH NODE OBTAINED BY FINE NEEDLE ASPIRATION BIOPSY / Unknown Collection / Unknown 08/08/2025 3:26 PM MUSEUM PREPARATOR 08/09/2025 6:20 AM MUSEUM PREPARATOR Body fluid specimen (specimen) SPECIMEN FROM LYMPH NODE OBTAINED BY FINE NEEDLE ASPIRATION BIOPSY / Unknown 08/08/2025 3:26 PM MUSEUM PREPARATOR 08/09/2025 6:20 AM MUSEUM PREPARATOR Body fluid specimen (specimen) SPECIMEN FROM LYMPH NODE OBTAINED BY FINE NEEDLE ASPIRATION BIOPSY / Unknown 08/08/2025 3:26 PM MUSEUM PREPARATOR 08/09/2025 6:20 AM MUSEUM PREPARATOR Body fluid specimen (specimen) SPECIMEN FROM LYMPH NODE OBTAINED BY FINE NEEDLE ASPIRATION BIOPSY / Unknown 08/08/2025 3:26 PM MUSEUM PREPARATOR 08/09/2025 6:20 AM MUSEUM PREPARATOR Body fluid specimen (specimen) SPECIMEN FROM LYMPH NODE OBTAINED BY FINE NEEDLE ASPIRATION BIOPSY / Unknown 08/08/2025 3:26 PM MUSEUM PREPARATOR 08/09/2025 6:20 AM MUSEUM PREPARATOR Body fluid specimen (specimen) (Bronchial brushing) 08/08/2025 3:26 PM MUSEUM PREPARATOR 08/09/2025 6:20 AM MUSEUM PREPARATOR Body fluid specimen (specimen) (BAL, right upper lobe) 08/08/2025 3:26 PM MUSEUM PREPARATOR 08/09/2025 6:20 AM MUSEUM PREPARATOR Body fluid specimen (specimen) (BAL, left upper lobe) 08/08/2025 3:26 PM MUSEUM PREPARATOR 08/09/2025 6:20 AM MUSEUM PREPARATOR Jeremy Owen MD PATHOLOGY/CYTOLOGY ORDERABLES Final Result [facility] CLIA# [id number] [address] [place] [address] * (ABNORMAL) MANUAL DIFFERENTIAL (08/08/2025 3:29 AM MUSEUM PREPARATOR) SEGMENTED NEUTROPHILS 98 % 08/08/2025 6:07 AM MUSEUM PREPARATOR [facility] LYMPHOCYTES RELATIVE 1(L) 43 - 53 % 08/08/2025 6:07 AM [facility] MONOCYTES RELATIVE 1 % 08/08/2025 6:07 AM [facility] NEUTROPHILS ABSOLUTE COUNT 10.50(H) 1.90 - 7.00 K/uL 08/08/2025 6:07 AM [facility]. [facility] LYMPHOCYTES ABSOLUTE 0.10(L) 0.70 - 4.50 K/uL 08/08/2025 6:07 AM [facility]. [facility] MONOCYTES ABSOLUTE 0.10 0.10 - 1.30 K/uL 08/08/2025 6:07 AM [facility]. [facility] TOTAL CELLS COUNTED IN DIFF 109 08/08/2025 6:07 AM [facility]. [facility] RBC MORPHOLOGY Normal 08/08/2025 6:07 AM [facility] PLATELET EST. Consistent w Count 08/08/2025 6:07 AM [facility]. [facility] Blood Venipuncture / Unknown 08/08/2025 3:29 AM MUSEUM PREPARATOR 08/08/2025 4:06 AM [facility] Frank Macdonald MD HEMATOLOGY ORDERABLES C OM Final Result [facility]# [id number] 5 [facility] [place] [address] * HIV 1 RNA, QUANTITATIVE (08/08/2025 3:29 AM MUSEUM PREPARATOR) Pathologist [facility] [place] HIV 1 RNA COPIES/ML NOT DETECTED NOT DETECTED copies/mL 08/09/2025 2:20 PM MUSEUM PREPARATOR [facility] HIV 1 RNA LOGCOPIES/ML NOT DETECTED NOT DETECTED Log copies/mL 08/09/2025 2:20 PM MUSEUM PREPARATOR [facility] Comment: This test was performed using Real-Time Polymerase Chain Reaction. Reportable Range: 20 copies/mL to 10,000,000 copies/mL (1.30 log copies/mL to 7.00 log copies/mL). FASTING: UNKNOWN Blood Venipuncture / Unknown 08/08/2025 3:29 AM MUSEUM PREPARATOR 08/08/2025 10:11 AM MUSEUM PREPARATOR Narrative [facility] - 08/09/2025 2:20 PM MUSEUM PREPARATOR Performing Organization Information: Site ID: [id number] Name: [place] Address: [address] [address] Director: Bel Garvin MD Frank Macdonald MD CHEMISTRY ORDERABLES Fi nal Result [facility] TINA [phone] * MAGNESIUM LEVEL (08/08/2025 3:29 AM MUSEUM PREPARATOR) Only the most recent of2 resultswithin the time period is included. Pathologist [facility] [place] MAGNESIUM 1.9 1.6 - 2.4 mg/dL 08/08/2025 4:59 AM [facility] Blood Venipuncture / Unknown 08/08/2025 3:29 AM MUSEUM PREPARATOR 08/08/2025 4:06 AM MUSEUM PREPARATOR Frank Macdonald MD CHEMISTRY ORDERABLES Fi nal Result Performing Organization Address City/[facility]/ZIP Co de Phone Number [facility]# [id number] [address] [place] [address] [place] [address] * (ABNORMAL) BLOOD GAS ARTERIAL (08/06/2025 9:11 PM MUSEUM PREPARATOR) PH ARTERIAL 7.40 7.35 - 7.45 08/06/2025 9:33 PM MUSEUM PREPARATOR [facility] SERVICES [facility] PCO2 ARTERIAL 50(H) 35 - 48 mm Hg 08/06/2025 9:33 PM [facility] PO2 ARTERIAL 91 83 - 108 mm Hg 08/06/2025 9:33 PM MUSEUM PREPARATOR [facility] HCO3 ARTERIAL 30(H) 22 - 26 mmol/L 08/06/2025 9:33 PM [facility] BASE EXCESS ABG 5.3(H) -2.0 - 3.0 mmol/L 08/06/2025 9:33 PM [facility] O2 SAT EST ARTERIAL 97 95 - 99 % 08/06/2025 9:33 PM [facility] P/F RATIO ARTERIAL 169 08/06/2025 9:33 PM [facility] OXYGEN MODE High Flow Nasal Cannula 08/06/2025 9:33 PM [facility] FIO2 54.0 21.0 - 100.0 % 08/06/2025 9:33 PM [facility] LITER FLOW 6.0 L/min 08/06/2025 9:33 PM [facility] Blood, arterial Arterial / Unknown 2024 9:11 PM MUSEUM PREPARATOR 08/06/2025 9:19 PM MUSEUM PREPARATOR Frank Macdonald MD ABG ORDERABLES Final R esult [facility] CLIA# [id number] [address] [place] [address] * AFB CULTURE WITH STAIN (08/06/2025 7:39 PM MUSEUM PREPARATOR) CULTURE No acid fast bacilli isolated. 09/19/2025 2:50 PM [facility] AFB STAIN No acid fast bacilli observed 09/19/2025 2:50 PM [facility] Sputum SPUTUM SPECIMEN OBTAINED BY SPUTUM INDUCTION / Unknown Collection / Unknown 08/06/2025 7:39 PM MUSEUM PREPARATOR 08/06/2025 7:53 PM MUSEUM PREPARATOR Narrative [facility] - 09/19/2025 2:50 PM MUSEUM PREPARATOR Culture is held for a minimum of 6 weeks. Frank Macdonald MD MICROBIOLOGY - GENERAL ORDERABLES Final Result [facility] CLIA# [id number] [address] [place] [address] * LEGIONELLA ANTIGEN, URINE (08/06/2025 5:56 PM MUSEUM PREPARATOR) [facility] LEGIONELLA AG, URINE NOT DETECTED Not Detected 08/06/2025 7:15 PM MUSEUM PREPARATOR [facility] Urine URINE SPECIMEN OBTAINED BY CLEAN CATCH PROCEDURE / Unknown Collection / Unknown 08/06/2025 5:56 PM MUSEUM PREPARATOR 08/06/2025 6:12 PM MUSEUM PREPARATOR Narrative [facility] - 08/06/2025 7:15 PM MUSEUM PREPARATOR This test will not detect infections caused by Legionella species other than L. pneumophila serogroup 1. A negative antigen result does not exclude infection with L. pneumophila serogroup 1. Culture is recommended for suspected pneumoniae to detect causative agents other than L. pneumophila serogroup 1 and to recover L. pneumophila serogroup 1 when antigen is not detected in urine. Frank Macdonald MD MICROBIOLOGY - GENERAL ORDERABLES Final Result Performing Organization Address City/[facility]/ZIP Co de Phone Number [facility] CLIA# [id number] [address] [place] [address] * STREPTOCOCCUS PNEUMONIAE ANTIGEN (08/06/2025 5:56 PM MUSEUM PREPARATOR) [facility] STREPTOCOCCUS PNEUMONIAE AG NOT DETECTED Not Detected 08/06/2025 7:16 PM MUSEUM PREPARATOR [facility] Urine URINE SPECIMEN OBTAINED BY CLEAN CATCH PROCEDURE / Unknown Collection / Unknown 08/06/2025 5:56 PM MUSEUM PREPARATOR 08/06/2025 6:12 PM MUSEUM PREPARATOR Frank Macdonald MD MICROBIOLOGY - GENERAL ORDERABLES Final Result [facility] CLIA# [id number] [address] [place] [address] * C. DIFFICILE DETECTION (08/06/2025 5:20 PM MUSEUM PREPARATOR) [facility] TOXIGENIC C DIFFICILE NOT DETECTED Not Detected 08/06/2025 6:53 PM MUSEUM PREPARATOR [facility] Stool STOOL SPECIMEN / Unknown Collection / Unknown 08/06/2025 5:20 PM MUSEUM PREPARATOR 08/06/2025 5:51 PM MUSEUM PREPARATOR Narrative [facility] - 08/06/2025 6:53 PM MUSEUM PREPARATOR This assay is used to detect Toxigenic C. difficile target(B gene) DNA sequences in unformed stool specimens. If toxigenic C. difficile is not detected, but clinical suspicion is high please consult ID for consultation and potential repeat testing. This test should not be used as a test of cure. Rhonda Valerio MD MICROBIOLOGY - [facility] AL ORDERABLES Final Result [facility]# [id number] [address] [place] [address] * BLOOD CULTURE (08/06/2025 5:17 PM MUSEUM PREPARATOR) Only the most recent of2 resultswithin the time period is included. Pathologist [facility] [place] BLOOD CULTURE No growth 08/13/2025 1:40 PM MUSEUM PREPARATOR [facility] Blood (Peripheral) Venipuncture / Unknown 08/06/2025 5:17 PM MUSEUM PREPARATOR 08/06/2025 5:30 PM MUSEUM PREPARATOR Frank Macdonald MD MICROBIOLOGY - GENERAL ORDERABLES Final Result [facility]# [id number] [address] [place] [address] * (ABNORMAL) CD4 COUNT AND T4T8 RATIO (08/06/2025 5:17 PM MUSEUM PREPARATOR) CD3 61 57 - 85 % 08/08/2025 3:39 AM MUSEUM PREPARATOR [facility] CD3 ABSOLUTE 221(L) 840 - 3060 cells/uL 08/08/2025 3:39 AM MUSEUM PREPARATOR [facility] % CD4 (T CELLS) 13(L) 30 - 61 % 3:39 AM MUSEUM PREPARATOR [facility] ABSOLUTE CD4+ CELLS 48(L) 490 - 1740 cells/uL 08/08/2025 3:39 AM MUSEUM PREPARATOR [facility] % CD8 (T CELLS) 48(H) 12 - 42 % 3:39 AM MUSEUM PREPARATOR [facility] ABSOLUTE CD8+ CELLS 173(L) 180 - 1170 cells/uL 08/08/2025 3:39 AM MUSEUM PREPARATOR [facility] CD4/CD8 RATIO 0.28(L) 0.86 - 5.00 08/08/2025 3:39 AM MUSEUM PREPARATOR [facility] LYMPHOCYTE ABSOLUTE 360(L) 850 - 3900 cells/uL 08/08/2025 3:39 AM MUSEUM PREPARATOR [facility] Blood Venipuncture / Unknown 08/06/2025 5:17 PM MUSEUM PREPARATOR 08/06/2025 5:30 PM MUSEUM PREPARATOR Narrative [facility] - 08/08/2025 3:39 AM MUSEUM PREPARATOR Performing Organization Information: Site ID: CB Name: [facility] Address: [address] [place] [id number] Director: Naseem Montero Frank Macdonald MD HEMATOLOGY ORDERABLES F inal Result [facility] [phone] * (ABNORMAL) HEMOGLOBIN A1C (08/06/2025 5:17 PM MUSEUM PREPARATOR) HEMOGLOBIN A1C 5.9(H) <5.7 % 08/06/2025 6:03 PM MUSEUM PREPARATOR [facility] EST. AVG GLUCOSE, A1C 123 mg/dL 08/06/2025 6:03 PM MUSEUM PREPARATOR [facility] Blood Venipuncture / Unknown 08/06/2025 5:17 PM MUSEUM PREPARATOR 08/06/2025 5:30 PM MUSEUM PREPARATOR [facility] - 08/06/2025 6:03 PM MUSEUM PREPARATOR HGB A1C INTERPRETATION NORMAL: <5.7% PRE-DIABETES: 5.7 - 6.4% DIABETES: 6.5% OR GREATER Frank Macdonald MD CHEMISTRY ORDERABLES Fi nal Result [facility]# [id number] [address] [place] [address] from Last 3 Months Insurance [employer] [place] RX INFOCROSSING Medicaid RX BLAS PLANS (INTERNAL) [facility] RX [employer] [employer] Commercial RX [employer]VOLVE PH[employer] Commercial Advance Directives For more information, please contact: [phone] Documents on File Type Date Recorded 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 intubation): No Mechanical Ventilation (for respiratory distress) - Non-Invasive (i.e. BiPAP, CPAP): No * Full Code Date Activated Date Inactivated Comments 09/05/2025 2:00 AM 09/06/2025 11:59 AM * Full Code Date Activated Date Inactivated Comments 08/25/2025 12:55 PM 08/29/2025 5:57 PM * NO CPR (In Event of Cardiopulmonary Arrest) Date Activated Date Inactivated Comments 08/23/2025 10:20 AM 08/25/2025 12:55 PM Question Answer Comments Mechanical Ventilation (for respiratory distress) - Invasive (i.e. intubation): Yes Mechanical Ventilation (for respiratory distress) - Non-Invasive (i.e. BiPAP, CPAP): Yes * Full Code Date Activated Date Inactivated Comments 08/21/2025 6:00 PM 08/23/2025 10:20 AM Healthcare Agents on File Name Relationship Healthcare Agent [facility] Communication Felisa Zavala Daughter Health Care Agent
--- NOTE | 2025-09-19 18:47 | ECG_ITS ---
Test Date: 2025-09-19 20:40:06 Measurements Intervals [place] Rate: 75 P: 73 WA: 149 QRS: 3 QRSD: 97 T: 70 QT: 400 QTc: 447 Interpretive Statements SINUS RHYTHM BASELINE ARTIFACT- V2-V3 NORMAL ECG Compared to ECG 08/05/2025 21:53:10 HEART RATE HAS DECREASED Electronically Signed On 09-20-2025 06:13:38 PRODUCT COMMUNICATIONS MANAGER by Jimmie Gordon D.O.
--- OUTSIDE RECORDS SUMMARY | 2025-09-19 19:01 | XMS_ITS ---
Author Organization [facility] Address [address] [place] [address] Phone Care Team Providers Care Spring Fitter Helper Name Role Phone Unavailable Primary Care Provider Unavailabl e Active Problems Problem Noted Date Diagnosed Date Goals of care, counseling/discussion 09/06/2025 Dyspnea 09/05/2025 History of pneumothorax 09/05/2025 Grief reaction 08/27/2025 Abnormal PET scan of head 08/23/2025 Overview (08/23/2025): Tongue uptake. Acute on chronic anemia 08/22/2025 Metastasis to bone 08/22/2025 Pneumothorax on left 08/21/2025 Assessment & Plan (08/21/2025 7:30 PM SERVICE DESK TEAM LEAD): Xray x2 rev/int= large post procedure pneumo. [...] 08/12/2025 Assessment & Plan (08/21/2025 7:30 PM SERVICE DESK TEAM LEAD): F/u oncology, no treatment planned here Port [...] 08/06/2025 Assessment & Plan (08/06/2025 4:20 PM SERVICE DESK TEAM LEAD): Uploading osh CT Per records 3.3 cm R lung mass, new. 3.1 cm RML mass (seen 05/2025) Smoking hx Ddx: malignancy vs OI. Would benefit from bronch after treatment for acute resp failure Acute on chronic respiratory failure with hypoxia and hypercapnia 08/06/2025 Assessment & Plan (08/21/2025 7:30 PM SERVICE DESK TEAM LEAD): Xray x2 rev/int= large post procedure pneumo. Then reduction with L ct placement Severe- large pneumo needing CT, severe pain, complicating comorbids Morphine IV prn Monitor for reaction, side effects, vitals Surgery is primary Rpt cxr in am Check cbc, cmp Consider toradol after labs IS Assessment & Plan (08/06/2025 9:09 PM SERVICE DESK TEAM LEAD): Baseline 3L Hx copd/emphysema Sats 83% on [...] 08/06/2025 Assessment & Plan (08/06/2025 9:09 PM SERVICE DESK TEAM LEAD): Baseline 3L Hx copd/emphysema Sats 83% on [...] 08/06/2025 Assessment & Plan (08/21/2025 7:30 PM SERVICE DESK TEAM LEAD): 3L at home Chronic pred use, 5 mg daily, just finished a taper Cont ICS/LABA, cont LAMA, cont SHERRI prn Assessment & Plan (08/06/2025 9:09 PM SERVICE DESK TEAM LEAD): Baseline 3L Hx copd/emphysema Sats 83% on [...] 08/06/2025 Assessment & Plan (08/06/2025 9:09 PM SERVICE DESK TEAM LEAD): Baseline 3L Hx copd/emphysema Sats 83% on [...] 12/2024 Assessment & Plan (08/21/2025 7:30 PM SERVICE DESK TEAM LEAD): On ART Cont bactirm ppx CD4 48 08/16/25 Assessment & Plan (08/06/2025 4:20 PM SERVICE DESK TEAM LEAD): Cont ART, see med list Check cd4, VL Hypertension 08/06/2025 Assessment & Plan (08/21/2025 7:30 PM SERVICE DESK TEAM LEAD): Hold losartan Reassess in am Assessment & Plan (08/06/2025 4:20 PM SERVICE DESK TEAM LEAD): Hold home losartan Chronic combined systolic and diastolic heart fa ilure 08/06/2025 Assessment & Plan (08/06/2025 4:20 PM SERVICE DESK TEAM LEAD): Per OSH chart No crackles or edema currently No acute intervention needed. Consider reassessment of LVEF prior to dc. Tendinopathy of right biceps tendon 08/06/2025 Assessment & Plan (08/06/2025 4:20 PM SERVICE DESK TEAM LEAD): Hx noted Current chronic use of systemic steroids 025 Assessment & Plan (08/21/2025 7:30 PM SERVICE DESK TEAM LEAD): 3L at home Chronic pred use, 5 mg daily, just finished a taper Cont ICS/LABA, cont LAMA, cont SHERRI prn Assessment & Plan (08/06/2025 9:09 PM SERVICE DESK TEAM LEAD): Baseline 3L Hx copd/emphysema Sats 83% on [...] 08/06/2025 Assessment & Plan (08/06/2025 9:09 PM SERVICE DESK TEAM LEAD): Baseline 3L Hx copd/emphysema Sats 83% on [...] 08/06/2025 Assessment & Plan (08/06/2025 4:20 PM SERVICE DESK TEAM LEAD): Mild Volume down or euvolemic Na 132 @ OSH Repeat BMP Sepsis 08/06/2025 Assessment & Plan (08/06/2025 4:20 PM SERVICE DESK TEAM LEAD): RR 24, wbc 21 Was tachy as [...] pneumonia) Assessment & Plan (08/06/2025 4:20 PM SERVICE DESK TEAM LEAD): RR 24, wbc 21 Was tachy as [...] 08/06/2025 Assessment & Plan (08/06/2025 4:20 PM SERVICE DESK TEAM LEAD): RR 24, wbc 21 Was tachy as [...] 08/06/2025 Assessment & Plan (08/06/2025 4:20 PM SERVICE DESK TEAM LEAD): Check A1c HDSSI SADIE (obstructive sleep apnea) [...]
--- OUTSIDE RECORDS SUMMARY | 2025-09-19 19:01 | XMS_ITS | Encounter Summary ---
Author Organization [facility] Address [address] [place] [address] Care Team Providers Care Event Crew Technician Name Role Phone Unavailable Primary Care Provider Unavailabl e Reason for Visit * Reason Comments Nurse Navigation Follow up Encounter Details Date Type Department Care Team (Late st Contact Info) Description 09/19/2025 Chart Note [facility] Oncology Patient Navigation [address] [place] [address] Felisa Hyatt, RN Nurse Navigation (Follow up) [...] Hyatt RN, BSN Pulmonary Oncology Nurse Navigator EMS SOFTWARE ENGINEER documented in this encounter Plan of Treatment Upcoming Encounters Date Type Department Care Team (Late st Contact Info) Description 10/03/2025 2:45 PM SYSTEMS SOFTWARE ENGINEER Office Visit [facility] Oncology and Hematology [facility] [address] [facility] [address] [place] [address] Pa Go MD [address] [place] [address] documented as of this encounter Visit Diagnoses Not on filedocumented in this encounter
--- OUTSIDE RECORDS SUMMARY | 2025-09-19 19:01 | XMS_ITS | Clinical Summary ---
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 30 Tablet 3 08/20/20 Active polyethylene glycol 3350 (MIRALAX) 17 gram/dose Powder Take 1 Scoop (17 Grams) by mouth daily for 7 days. Dissolve in 8 ounces of fluid and drink entire liquid 527 Gram 5 3:20 PM HOME RESTORATION SERVICE SUPERVISOR 08/21/20 25 2024 Active fluticasone-um eclidinium-dorina anterol [...] 3 days. 15 Tablet 5 4:05 PM HOME RESTORATION SERVICE SUPERVISOR 09/07/20 25 2024 Active Nebulizer Accessories Kit Use as needed for nebulizer 1 Kit 09/07/20 Active oxyCODONE (ROXICODONE) 5 mg tabletIndicati ons:ACP (advance care planning) Take 1 Tablet (5 mg) by mouth every 4 hours as needed for Pain. Max Daily Amount: 30 mg 20 Tablet 5 4:05 PM HOME RESTORATION SERVICE SUPERVISOR 09/07/20 Active HYDROcodone-ac etaminophen (NORCO) 5-325 mg [...] 4 mg tabletIndicati ons:Cancer, metastatic to bone (CMS/HCC),[place] stasis to liver (CMS/HCC),NSCL C of right [...] 6 Tablets 10 Tablet 5 3:20 PM HOME RESTORATION SERVICE SUPERVISOR 08/21/20 25 2024 Discontinued(R eorder) benzonatate (TESSALON) 200 mg capsule Take 1 Capsule (200 mg) by mouth 3 times daily for 7 days. 21 Capsule 5 3:20 PM HOME RESTORATION SERVICE SUPERVISOR 08/29/20 25 2024 Discontinued HYDROcodone-ac etaminophen (NORCO) 5-325 mg tabletIndicati ons:Post-op pain Take 1 Tablet by mouth every 6 hours as needed for Pain, Moderate. Max Daily Amount: 4 Tablets 10 Tablet 5 4:05 PM HOME RESTORATION SERVICE SUPERVISOR 09/03/20 25 2024 Discontinued(R eorder) benzonatate (TESSALON) 200 mg capsule Take 1 Capsule (200 mg) by mouth 3 times daily for 7 days. 21 Capsule 5 4:05 PM HOME RESTORATION SERVICE SUPERVISOR 09/07/20 25 2024 Active Problems Problem Noted Date Diagnosed Date Goals of care, counseling/discussion 09/06/2025 Dyspnea 09/05/2025 History of pneumothorax 09/05/2025 Grief reaction 08/27/2025 Abnormal PET scan of head 08/23/2025 Overview (08/23/2025): Tongue uptake. Acute on chronic anemia 08/22/2025 Metastasis to bone 08/22/2025 Pneumothorax on left 08/21/2025 Assessment & Plan (08/21/2025 7:30 PM HOME RESTORATION SERVICE SUPERVISOR): Xray x2 rev/int= large post procedure pneumo. [...] 08/12/2025 Assessment & Plan (08/21/2025 7:30 PM HOME RESTORATION SERVICE SUPERVISOR): F/u oncology, no treatment planned here Port [...] 08/06/2025 Assessment & Plan (08/06/2025 4:20 PM HOME RESTORATION SERVICE SUPERVISOR): Uploading osh CT Per records 3.3 cm R lung mass, new. 3.1 cm RML mass (seen 05/2025) Smoking hx Ddx: malignancy vs OI. Would benefit from bronch after treatment for acute resp failure Acute on chronic respiratory failure with hypoxia and hypercapnia 08/06/2025 Assessment & Plan (08/21/2025 7:30 PM HOME RESTORATION SERVICE SUPERVISOR): Xray x2 rev/int= large post procedure pneumo. Then reduction with L ct placement Severe- large pneumo needing CT, severe pain, complicating comorbids Morphine IV prn Monitor for reaction, side effects, vitals Surgery is primary Rpt cxr in am Check cbc, cmp Consider toradol after labs IS Assessment & Plan (08/06/2025 9:09 PM HOME RESTORATION SERVICE SUPERVISOR): Baseline 3L Hx copd/emphysema Sats 83% on [...] 08/06/2025 Assessment & Plan (08/06/2025 9:09 PM HOME RESTORATION SERVICE SUPERVISOR): Baseline 3L Hx copd/emphysema Sats 83% on [...] 08/06/2025 Assessment & Plan (08/21/2025 7:30 PM HOME RESTORATION SERVICE SUPERVISOR): 3L at home Chronic pred use, 5 mg daily, just finished a taper Cont ICS/LABA, cont LAMA, cont SHERRI prn Assessment & Plan (08/06/2025 9:09 PM HOME RESTORATION SERVICE SUPERVISOR): Baseline 3L Hx copd/emphysema Sats 83% on [...] 08/06/2025 Assessment & Plan (08/06/2025 9:09 PM HOME RESTORATION SERVICE SUPERVISOR): Baseline 3L Hx copd/emphysema Sats 83% on [...] 12/2024 Assessment & Plan (08/21/2025 7:30 PM HOME RESTORATION SERVICE SUPERVISOR): On ART Cont bactirm ppx CD4 48 08/16/25 Assessment & Plan (08/06/2025 4:20 PM HOME RESTORATION SERVICE SUPERVISOR): Cont ART, see med list Check cd4, VL Hypertension 08/06/2025 Assessment & Plan (08/21/2025 7:30 PM HOME RESTORATION SERVICE SUPERVISOR): Hold losartan Reassess in am Assessment & Plan (08/06/2025 4:20 PM HOME RESTORATION SERVICE SUPERVISOR): Hold home losartan Chronic combined systolic and diastolic heart fa ilure 08/06/2025 Assessment & Plan (08/06/2025 4:20 PM HOME RESTORATION SERVICE SUPERVISOR): Per OSH chart No crackles or edema currently No acute intervention needed. Consider reassessment of LVEF prior to dc. Tendinopathy of right biceps tendon 08/06/2025 Assessment & Plan (08/06/2025 4:20 PM HOME RESTORATION SERVICE SUPERVISOR): Hx noted Current chronic use of systemic steroids 025 Assessment & Plan (08/21/2025 7:30 PM HOME RESTORATION SERVICE SUPERVISOR): 3L at home Chronic pred use, 5 mg daily, just finished a taper Cont ICS/LABA, cont LAMA, cont SHERRI prn Assessment & Plan (08/06/2025 9:09 PM HOME RESTORATION SERVICE SUPERVISOR): Baseline 3L Hx copd/emphysema Sats 83% on [...] 08/06/2025 Assessment & Plan (08/06/2025 9:09 PM HOME RESTORATION SERVICE SUPERVISOR): Baseline 3L Hx copd/emphysema Sats 83% on [...] 08/06/2025 Assessment & Plan (08/06/2025 4:20 PM HOME RESTORATION SERVICE SUPERVISOR): Mild Volume down or euvolemic Na 132 @ OSH Repeat BMP Sepsis 08/06/2025 Assessment & Plan (08/06/2025 4:20 PM HOME RESTORATION SERVICE SUPERVISOR): RR 24, wbc 21 Was tachy as [...] pneumonia) Assessment & Plan (08/06/2025 4:20 PM HOME RESTORATION SERVICE SUPERVISOR): RR 24, wbc 21 Was tachy as [...] 08/06/2025 Assessment & Plan (08/06/2025 4:20 PM HOME RESTORATION SERVICE SUPERVISOR): RR 24, wbc 21 Was tachy as [...] 08/06/2025 Assessment & Plan (08/06/2025 4:20 PM HOME RESTORATION SERVICE SUPERVISOR): Check A1c HDSSI SADIE (obstructive sleep apnea) 08/06/2025 Encounters Date Type Department Care Team Description 09/19/2025 Chart Note [facility] Oncology Patient Navigation [address] [place] [address] Felisa Hyatt, RN Nurse Navigation (Follow up) 09/17/2025 Chart Note [facility] Oncology Patient Navigation [address] [place] [address] Felisa Hyatt, RN Nurse Navigation (Follow up) 09/17/2025 Telephone [facility] Pulmonology [facility] [address] [place] [phone] Hamzah Butt MD Hospital Follow Up 09/17/2025 Telephone [facility] Oncology and Hematology [facility] [address] [place] [phone] Dimple Neff MD coordination of care and refills 09/16/2025 Orders Only [facility] Oncology [facility] H[facility] [address] [place] [address] Dimple Neff MD Post-op pain 09/12/2025 Chart Note [facility] Oncology Patient Navigation [address] [place] [address] Neyda Mitchell, PENNY Nurse Navigation (Follow up) 09/11/2025 External Device Data STL ABSTRACTION Provider, Abstract 09/11/2025 External Device Data STL ABSTRACTION Provider, Abstract 09/10/2025 Chart Note [facility] Oncology Patient Navigation [address] [place] [address] Neyda Mitchell, RN Nurse Navigation (Follow up) 09/04/2025 6:22 PM HOME RESTORATION SERVICE SUPERVISOR - 09/07/2025 4:30 PM HOME RESTORATION SERVICE SUPERVISOR Hospital Encounter [facility][note 3] Care Unit [address] [place] [address] Mitch Lockwood DO Pfeiffer, Paul Rei, DO Sangani, Vikram, MD Weitzel, Laura Jean, MD Hawatmeh, Shady, MD Dyspnea Discharge Disposition: Home or Self Care 09/04/2025 Travel 09/04/2025 Chart Note [facility] Oncology Patient Navigation [address] [place] [address] Felisa Hyatt, PENNY Nurse Navigation (Follow up) 09/03/2025 Telephone [facility] [address] [place] [address] Marge Richardson PA-C peer to peer 09/03/2025 Orders Only [facility] Surgical Spec [place] [address] [place] [address] Balaji Win MD Post-op pain 09/03/2025 Chart Note [facility] Oncology Patient Navigation [address] [place] [address] Felisa Hyatt, RN Nurse Navigation (Follow up) 08/29/2025 Orders Only [facility] [address] [place] [address] Keshia Noonan RN Cancer, metastatic to bone (CMS/HCC) (Primary Dx); Metastasis to liver (CMS/HCC); NSCLC of right middle lobe (CMS/HCC); Cancer, metastatic to liver (CMS/HCC); Mediastinal lymphadenopathy; Abnormal CT of the abdomen; Abnormal CT of the chest 08/27/2025 Abstract [facility] [address] [place] [address] Dimple Neff MD 08/23/2025 Chart Note [facility] Oncology Patient Navigation [address] [place] [address] Felisa Hyatt, RN Nurse Navigation (Follow up) 08/21/2025 1:06 PM HOME RESTORATION SERVICE SUPERVISOR Anesthesia Event [facility] Operating Room [address] [place] [address] Mimi Lawler MD Arnold, Donald E, MD 08/21/2025 12:46 PM HOME RESTORATION SERVICE SUPERVISOR - 08/21/2025 1:26 PM HOME RESTORATION SERVICE SUPERVISOR Surgery [facility] Operating Room [address] [place] [address] Balaji Win MD CENTRAL VENOUS ACCESS INSERTION WITH PORT 08/21/2025 11:48 AM HOME RESTORATION SERVICE SUPERVISOR - 08/29/2025 3:01 PM HOME RESTORATION SERVICE SUPERVISOR Hospital Encounter [facility] Telemetry [address] [place] [phone] Balaji Win MD Williams, Timothy John, MD Padgett, Sabrina, MD Araujo, Tiago, MD Pneumothorax on left Discharge Disposition: Home or Self Care 08/21/2025 Travel 08/20/2025 Chart Note [facility] Oncology Patient Navigation [address] [place] [address] Felisa Hyatt, RN Nurse Navigation (Follow up) 08/20/2025 Telephone [facility] Surgical Spec [place] [address] [facility] [address] [place] [address] Balaji Win MD Scheduled Port Placement 08/20/2025 Orders Only [facility] Oncology and Hematology [facility] [address] [place] [phone] Dimple Neff MD Cancer, metastatic to bone (CMS/HCC) (Primary Dx); Metastasis to liver (CMS/HCC); NSCLC of right middle lobe (CMS/HCC) 08/17/2025 10:07 AM HOME RESTORATION SERVICE SUPERVISOR - 08/17/2025 11:59 PM HOME RESTORATION SERVICE SUPERVISOR Hospital Encounter [facility] [address] [place] [address] Dimple Neff MD Discharge Disposition: Home or Self Care 08/17/2025 Telephone [facility] Surgical Spec [place] [address] [facility] [address] [place] [address] Balaji Win MD surgery arrival time 08/16/2025 Chart Note [facility] Oncology Patient Navigation [address] [place] [address] Felisa Hyatt, RN Nurse Navigation (Establish care) 08/16/2025 Orders Only [facility] Oncology [facility] [address] [place] [address] Dimple Neff MD NSCLC of right middle lobe (CMS/HCC) (Primary Dx); Cancer, metastatic to liver (CMS/HCC); Mediastinal lymphadenopathy; Abnormal CT of the abdomen; Abnormal CT of the chest 08/16/2025 Prep for Surgery [facility] Surgical Spec [place] [address] [facility] [address] [place] [address] Cara Workman RN NSCLC of right middle lobe (CMS/HCC) (Primary Dx); Metastasis to liver (CMS/HCC); Lung mass 08/16/2025 Telephone [facility] Surgical Spec [place] [address] [facility] [address] [place] [address] Balaji Win MD Surgery 08/14/2025 External Device Data STL ABSTRACTION Provider, Abstract 08/14/2025 External Device Data ST[facility] ABSTRACTION Provider, Abstract 08/14/2025 External Device Data [facility] ABSTRACTION Provider, Abstract 08/13/2025 Orders Only [facility] Oncology [facility] [address] [place] [address] Dimple Neff MD NSCLC of right middle lobe (CMS/HCC) (Primary Dx) 08/09/2025 Abstract [facility] INFECTIOUS DISEASE [place] [facility] [address] [place] [address] Mal Espino MD 08/08/2025 External Device Data ST[facility] ABSTRACTION Provider, Abstract 08/07/2025 External Device Data [facility] ABSTRACTION Provider, Abstract 08/07/2025 External Device Data [facility] ABSTRACTION Provider, Abstract 08/07/2025 External Device Data STL ABSTRACTION Provider, Abstract 08/06/2025 2:41 PM HOME RESTORATION SERVICE SUPERVISOR - 08/15/2025 5:40 PM HOME RESTORATION SERVICE SUPERVISOR Hospital Encounter [facility] Oncology [address] [place] [phone] Rhonda Valerio MD Williams, Timothy John, MD [...] worry about transportation for future doctor visits, 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 No 2024 Housing Stability [...] Comments Blood Pressure 130/81 09/07/2025 8:52 AM HOME RESTORATION SERVICE SUPERVISOR Pulse 102 09/07/2025 8:52 AM HOME RESTORATION SERVICE SUPERVISOR Temperature 36.7 C (98.1 F) 09/07/2025 8:52 AM HOME RESTORATION SERVICE SUPERVISOR Respiratory Rate 18 09/07/2025 8:52 AM HOME RESTORATION SERVICE SUPERVISOR Oxygen Saturation 93% 09/07/2025 8:52 AM HOME RESTORATION SERVICE SUPERVISOR Inhaled Oxygen Concentration - - Weight 48 kg (105 lb 12.8 oz) 09/07/2025 4:17 AM HOME RESTORATION SERVICE SUPERVISOR Height 160 cm (5' 3) 09/04/2025 5:25 PM HOME RESTORATION SERVICE SUPERVISOR Body Mass Index 18.74 09/04/2025 5:25 PM HOME RESTORATION SERVICE SUPERVISOR Plan of Treatment Upcoming Encounters Date Type Department Care Team (Late st Contact Info) Description 10/03/2025 2:45 PM HOME RESTORATION SERVICE SUPERVISOR Office Visit [facility] Oncology and Hematology [facility] [address] [place] [phone] Dimple Neff MD [address] [place] [address] Health Maintenance Due Date Last [...] 04/13/2018, 02/07/2018 Medical Devices Implanted Type Area Jewellery Designer Device Identifier Shelf Expiration Date Model / Serial / Lot Port Powerport Clearvue 8fr Mri [id number] - [id number] Implanted:Qty : 1 on 08/21/2025 by Balaji Win MD at [facility] Port Left: Chest BARD MADDIE VASC [id number] 11/03/2026 [id number] / / [id number] Procedures Procedure Name Priority Date/Time Associated Diagnosis Comments TELEMETRY REPORT 09/11/2025 7:44 AM HOME RESTORATION SERVICE SUPERVISOR TELEMETRY REPORT 09/06/2025 1:52 PM HOME RESTORATION SERVICE SUPERVISOR C-REACTIVE PROTEIN Routine 09/05/2025 9: 04 PM HOME RESTORATION SERVICE SUPERVISOR PROCALCITONIN Routine 09/05/2025 9:04 PM HOME RESTORATION SERVICE SUPERVISOR PNEUMONIA PATHOGEN PCR PANEL Routine 09/05/2025 11:40 AM HOME RESTORATION SERVICE SUPERVISOR SPUTUM CULTURE WITH GRAM STAIN Routine 09/05/2025 11:39 AM HOME RESTORATION SERVICE SUPERVISOR RT ASSESS AND TREAT Routine 09/05/2025 2 :00 AM HOME RESTORATION SERVICE SUPERVISOR TROPONIN 6 HR, 5TH GEN Timed Study 5 1:59 AM HOME RESTORATION SERVICE SUPERVISOR CTA CHEST W AND/OR WO CONTRAST Stat 09/04/2025 10:59 PM HOME RESTORATION SERVICE SUPERVISOR XR CHEST PA OR AP 1 VW Stat 9:41 PM HOME RESTORATION SERVICE SUPERVISOR TROPONIN 2 HR, 5TH GEN Timed Study 5 9:01 PM HOME RESTORATION SERVICE SUPERVISOR BLOOD GAS VENOUS Stat 09/04/2025 6:55 PM HOME RESTORATION SERVICE SUPERVISOR TROPONIN BASELINE, 5TH GEN Stat 09/04/2025 6:47 PM HOME RESTORATION SERVICE SUPERVISOR BRAIN NATRIURETIC PEPTIDE, BNP OR PROBNP Stat 09/04/2025 6:47 PM HOME RESTORATION SERVICE SUPERVISOR BASIC METABOLIC PANEL Stat 09/04/2025 6:47 PM HOME RESTORATION SERVICE SUPERVISOR CBC WITH DIFFERENTIAL Stat 09/04/2025 6:47 PM HOME RESTORATION SERVICE SUPERVISOR RESPIRATORY PATHOGEN PCR PANEL Stat 09/04/2025 6:47 PM HOME RESTORATION SERVICE SUPERVISOR EKG 12-LEAD Stat 09/04/2025 5:32 PM HOME RESTORATION SERVICE SUPERVISOR CRITICAL CARE Routine 09/04/2025 5:05 PM HOME RESTORATION SERVICE SUPERVISOR TELEMETRY REPORT 08/29/2025 2:50 PM HOME RESTORATION SERVICE SUPERVISOR XR CHEST PA OR AP 1 VW Timed Study 1:05 PM HOME RESTORATION SERVICE SUPERVISOR COMPREHENSIVE METABOLIC PANEL Routine 08/29/2025 2:11 AM HOME RESTORATION SERVICE SUPERVISOR CBC WITH DIFFERENTIAL Routine 08/29/2025 2:11 AM HOME RESTORATION SERVICE SUPERVISOR XR CHEST PA OR AP 1 VW Stat 4:48 PM HOME RESTORATION SERVICE SUPERVISOR COMPREHENSIVE METABOLIC PANEL Routine 08/28/2025 12:40 AM HOME RESTORATION SERVICE SUPERVISOR CBC WITH DIFFERENTIAL Routine 08/28/2025 12:40 AM HOME RESTORATION SERVICE SUPERVISOR TELEMETRY REPORT 08/27/2025 1:25 PM HOME RESTORATION SERVICE SUPERVISOR XR CHEST PA OR AP 1 VW Routine 12:18 PM HOME RESTORATION SERVICE SUPERVISOR XR CHEST PA OR AP 1 VW Stat 12:08 PM HOME RESTORATION SERVICE SUPERVISOR COMPREHENSIVE METABOLIC PANEL Routine 08/27/2025 1:27 AM HOME RESTORATION SERVICE SUPERVISOR CBC WITH DIFFERENTIAL Routine 08/27/2025 1:27 AM HOME RESTORATION SERVICE SUPERVISOR CT CHEST WO CONTRAST Routine 08/26/2025 9:28 AM HOME RESTORATION SERVICE SUPERVISOR COMPREHENSIVE METABOLIC PANEL Routine 08/26/2025 1:52 AM HOME RESTORATION SERVICE SUPERVISOR CBC WITH DIFFERENTIAL Routine 08/26/2025 1:52 AM HOME RESTORATION SERVICE SUPERVISOR XR CHEST PA AND LATERAL 2 VW Routine 08/25/2025 3:36 PM HOME RESTORATION SERVICE SUPERVISOR COMPREHENSIVE METABOLIC PANEL Routine 08/25/2025 12:45 AM HOME RESTORATION SERVICE SUPERVISOR CBC WITH DIFFERENTIAL Routine 08/25/2025 12:45 AM HOME RESTORATION SERVICE SUPERVISOR COMPREHENSIVE METABOLIC PANEL Routine 08/24/2025 3:41 AM HOME RESTORATION SERVICE SUPERVISOR CBC WITH DIFFERENTIAL Routine 08/24/2025 3:41 AM HOME RESTORATION SERVICE SUPERVISOR XR CHEST PA OR AP 1 VW Timed Study 1:59 PM HOME RESTORATION SERVICE SUPERVISOR COMPREHENSIVE METABOLIC PANEL Routine 08/23/2025 11:01 AM HOME RESTORATION SERVICE SUPERVISOR CBC WITH DIFFERENTIAL Routine 08/23/2025 11:01 AM HOME RESTORATION SERVICE SUPERVISOR VITAMIN B12 AND FOLATE Routine 12:38 PM HOME RESTORATION SERVICE SUPERVISOR XR CHEST PA OR AP 1 VW Routine 6:24 AM HOME RESTORATION SERVICE SUPERVISOR IRON, TIBC, AND PERCENT SATURATION Routine 08/21/2025 8:25 PM HOME RESTORATION SERVICE SUPERVISOR COMPREHENSIVE METABOLIC PANEL Routine 08/21/2025 8:25 PM HOME RESTORATION SERVICE SUPERVISOR CBC WITH DIFFERENTIAL Routine 08/21/2025 8:25 PM HOME RESTORATION SERVICE SUPERVISOR XR CHEST PA OR AP 1 VW Stat 5:20 PM HOME RESTORATION SERVICE SUPERVISOR XR FLUORO CENTRAL VENOUS ACCESS Routine 08/21/2025 3:30 PM HOME RESTORATION SERVICE SUPERVISOR XR CHEST PA OR AP 1 VW Pending Discharge 08/21/2025 2:50 PM HOME RESTORATION SERVICE SUPERVISOR [place] ANES INSERT ENDOTRACHEAL AIRWAY Routine 08/21/2025 1:20 PM HOME RESTORATION SERVICE SUPERVISOR NY INSJ TUNNELED CTR VAD W/SUBQ PORT AGE 5 YR/> 08/21/2025 12:46 PM HOME RESTORATION SERVICE SUPERVISOR NSCLC of right middle lobe (CMS/HCC) POC GLUCOSE Routine 08/21/2025 12:27 PM HOME RESTORATION SERVICE SUPERVISOR TELEMETRY REPORT 08/17/2025 4:27 PM HOME RESTORATION SERVICE SUPERVISOR PET TUMOR OR INFECTION IMG W CT SKB MDTH Stat 08/17/2025 11:44 AM HOME RESTORATION SERVICE SUPERVISOR Cancer, metastatic to liver (CMS/HCC) NSCLC of right middle lobe (CMS/HCC) Mediastinal lymphadenopathy Abnormal CT of the abdomen Abnormal CT of the chest POC GLUCOSE Routine 08/17/2025 10:20 AM HOME RESTORATION SERVICE SUPERVISOR POC GLUCOSE Routine 08/15/2025 4:16 PM HOME RESTORATION SERVICE SUPERVISOR POC GLUCOSE Routine 08/15/2025 12:42 PM HOME RESTORATION SERVICE SUPERVISOR POC GLUCOSE Routine 08/15/2025 7:24 AM HOME RESTORATION SERVICE SUPERVISOR POC GLUCOSE Routine 08/14/2025 10:04 PM HOME RESTORATION SERVICE SUPERVISOR POC GLUCOSE Routine 08/14/2025 5:53 PM HOME RESTORATION SERVICE SUPERVISOR POC GLUCOSE Routine 08/14/2025 11:59 AM HOME RESTORATION SERVICE SUPERVISOR BASIC METABOLIC PANEL Routine 08/14/2025 9:17 AM HOME RESTORATION SERVICE SUPERVISOR CBC WITHOUT DIFFERENTIAL Routine 08/14/2025 9:17 AM HOME RESTORATION SERVICE SUPERVISOR POC GLUCOSE Routine 08/14/2025 8:33 AM HOME RESTORATION SERVICE SUPERVISOR TEMPUS XT DNA AND RNA SOLID TUMOR Routine 08/13/2025 3:00 PM HOME RESTORATION SERVICE SUPERVISOR NSCLC of right middle lobe (CMS/HCC) TEMPUS XT DNA AND RNA Routine 08/13/2025 3:00 PM HOME RESTORATION SERVICE SUPERVISOR NSCLC of right middle lobe (CMS/HCC) TEMPUS XT NORMAL BLOOD Routine 3:00 PM HOME RESTORATION SERVICE SUPERVISOR NSCLC of right middle lobe (CMS/HCC) POC GLUCOSE Routine 08/13/2025 12:20 PM HOME RESTORATION SERVICE SUPERVISOR ECHOCARDIOGRAM W/ CONTRAST AGENT Routine 08/13/2025 11:27 AM HOME RESTORATION SERVICE SUPERVISOR US VENOUS DOPPLER LEG BILATERAL Routine 08/13/2025 9:57 AM HOME RESTORATION SERVICE SUPERVISOR POC GLUCOSE Routine 08/12/2025 3:25 PM HOME RESTORATION SERVICE SUPERVISOR POC GLUCOSE Routine 08/12/2025 11:57 AM HOME RESTORATION SERVICE SUPERVISOR BRAIN NATRIURETIC PEPTIDE, BNP OR PROBNP Routine 08/12/2025 8:29 AM HOME RESTORATION SERVICE SUPERVISOR BASIC METABOLIC PANEL Stat 08/12/2025 8:29 AM HOME RESTORATION SERVICE SUPERVISOR POC GLUCOSE Routine 08/12/2025 7:45 AM HOME RESTORATION SERVICE SUPERVISOR POC GLUCOSE Routine 08/11/2025 9:20 PM HOME RESTORATION SERVICE SUPERVISOR MRI BRAIN W WO CONTRAST Routine 08/11/2025 5:50 PM HOME RESTORATION SERVICE SUPERVISOR POC GLUCOSE Routine 08/11/2025 4:51 PM HOME RESTORATION SERVICE SUPERVISOR CT ABDOMEN PELVIS W WO CONTRAST Routine 08/11/2025 3:07 PM HOME RESTORATION SERVICE SUPERVISOR POC GLUCOSE Routine 08/11/2025 12:37 PM HOME RESTORATION SERVICE SUPERVISOR POC GLUCOSE Routine 08/11/2025 9:03 AM HOME RESTORATION SERVICE SUPERVISOR COMPREHENSIVE METABOLIC PANEL Stat 08/11/2025 8:49 AM HOME RESTORATION SERVICE SUPERVISOR CBC WITH DIFFERENTIAL Stat 08/11/2025 8:49 AM HOME RESTORATION SERVICE SUPERVISOR POC GLUCOSE Routine 08/10/2025 9:31 PM HOME RESTORATION SERVICE SUPERVISOR POC GLUCOSE Routine 08/10/2025 5:43 PM HOME RESTORATION SERVICE SUPERVISOR CBC WITH DIFFERENTIAL Routine 08/10/2025 3:54 PM HOME RESTORATION SERVICE SUPERVISOR BASIC METABOLIC PANEL Routine 08/10/2025 2:43 PM HOME RESTORATION SERVICE SUPERVISOR POC GLUCOSE Routine 08/10/2025 12:25 PM HOME RESTORATION SERVICE SUPERVISOR POC GLUCOSE Routine 08/10/2025 7:59 AM HOME RESTORATION SERVICE SUPERVISOR POC GLUCOSE Routine 08/09/2025 10:28 PM HOME RESTORATION SERVICE SUPERVISOR POC GLUCOSE Routine 08/09/2025 6:25 PM HOME RESTORATION SERVICE SUPERVISOR POC GLUCOSE Routine 08/09/2025 1:06 PM HOME RESTORATION SERVICE SUPERVISOR XR CHEST PA OR AP 1 VW Stat 9:58 AM HOME RESTORATION SERVICE SUPERVISOR POC GLUCOSE Routine 08/09/2025 8:10 AM HOME RESTORATION SERVICE SUPERVISOR HISTOPLASMA ANTIGEN Routine 08/08/2025 11:21 PM HOME RESTORATION SERVICE SUPERVISOR PROCEDURE REPORT 08/08/2025 10:21 PM HOME RESTORATION SERVICE SUPERVISOR POC GLUCOSE Routine 08/08/2025 9:44 PM HOME RESTORATION SERVICE SUPERVISOR POC GLUCOSE Routine 08/08/2025 5:10 PM HOME RESTORATION SERVICE SUPERVISOR XR FLUORO LESS THAN 1 HOUR Routine 08/08/2025 3:43 PM HOME RESTORATION SERVICE SUPERVISOR XR CHEST PA OR AP 1 VW Stat 3:39 PM HOME RESTORATION SERVICE SUPERVISOR PATHOLOGY Pathology 08/08/2025 3:26 PM HOME RESTORATION SERVICE SUPERVISOR CYTOLOGY, NON GYNE Pathology 08/08/2025 3: 26 PM HOME RESTORATION SERVICE SUPERVISOR HISTOPLASMA PCR Routine 08/08/2025 3:26 PM HOME RESTORATION SERVICE SUPERVISOR CELL COUNT WITH DIFFERENTIAL, BODY FLUID Routine 08/08/2025 3:26 PM HOME RESTORATION SERVICE SUPERVISOR PNEUMOCYSTIS JIROVECI BY PCR Routine 08/08/2025 3:26 PM HOME RESTORATION SERVICE SUPERVISOR PNEUMONIA PATHOGEN PCR PANEL Routine 08/08/2025 3:26 PM HOME RESTORATION SERVICE SUPERVISOR ASPERGILLUS ANTIGEN, BRONCHOALVEOLAR LAVAGE Routine 08/08/2025 3:26 PM HOME RESTORATION SERVICE SUPERVISOR FUNGUS CULTURE, OTHER Routine 08/08/2025 3:26 PM HOME RESTORATION SERVICE SUPERVISOR FUNGUS CULTURE, OTHER Routine 08/08/2025 3:26 PM HOME RESTORATION SERVICE SUPERVISOR AFB CULTURE WITH STAIN Routine 3:26 PM HOME RESTORATION SERVICE SUPERVISOR AFB CULTURE WITH STAIN Routine 3:26 PM HOME RESTORATION SERVICE SUPERVISOR RESPIRATORY CULTURE WITH GRAM STAIN Routine 08/08/2025 3:26 PM HOME RESTORATION SERVICE SUPERVISOR RESPIRATORY CULTURE WITH GRAM STAIN Routine 08/08/2025 3:26 PM HOME RESTORATION SERVICE SUPERVISOR POC GLUCOSE Routine 08/08/2025 12:26 PM HOME RESTORATION SERVICE SUPERVISOR BRONCHOSCOPY Routine 08/08/2025 10:15 AM HOME RESTORATION SERVICE SUPERVISOR POC GLUCOSE Routine 08/08/2025 8:19 AM HOME RESTORATION SERVICE SUPERVISOR DIFFERENTIAL, MANUAL Routine 08/08/2025 3:29 AM HOME RESTORATION SERVICE SUPERVISOR COMPREHENSIVE METABOLIC PANEL Routine 08/08/2025 3:29 AM HOME RESTORATION SERVICE SUPERVISOR CBC WITH DIFFERENTIAL Routine 08/08/2025 3:29 AM HOME RESTORATION SERVICE SUPERVISOR MAGNESIUM LEVEL Routine 08/08/2025 3:29 AM HOME RESTORATION SERVICE SUPERVISOR HIV 1 RNA, QUANTITATIVE Routine 08/08/2025 3:29 AM HOME RESTORATION SERVICE SUPERVISOR Symptomatic HIV infection (CMS/HCC) POC GLUCOSE Routine 08/07/2025 10:05 PM HOME RESTORATION SERVICE SUPERVISOR POC GLUCOSE Routine 08/07/2025 5:19 PM HOME RESTORATION SERVICE SUPERVISOR POC GLUCOSE Routine 08/07/2025 1:24 PM HOME RESTORATION SERVICE SUPERVISOR POC GLUCOSE Routine 08/07/2025 8:41 AM HOME RESTORATION SERVICE SUPERVISOR POC GLUCOSE Routine 08/07/2025 7:33 AM HOME RESTORATION SERVICE SUPERVISOR COMPREHENSIVE METABOLIC PANEL Routine 08/07/2025 4:53 AM HOME RESTORATION SERVICE SUPERVISOR CBC WITH DIFFERENTIAL Routine 08/07/2025 4:53 AM HOME RESTORATION SERVICE SUPERVISOR MAGNESIUM LEVEL Routine 08/07/2025 4:53 AM HOME RESTORATION SERVICE SUPERVISOR POC GLUCOSE Routine 08/06/2025 9:18 PM HOME RESTORATION SERVICE SUPERVISOR BLOOD GAS ARTERIAL Routine 08/06/2025 9: 11 PM HOME RESTORATION SERVICE SUPERVISOR AFB CULTURE WITH STAIN Routine 7:39 PM HOME RESTORATION SERVICE SUPERVISOR STREPTOCOCCUS PNEUMONIAE ANTIGEN Routine 08/06/2025 5:56 PM HOME RESTORATION SERVICE SUPERVISOR LEGIONELLA ANTIGEN, URINE Routine 08/06/2025 5:56 PM HOME RESTORATION SERVICE SUPERVISOR PNEUMOCYSTIS JIROVECI BY PCR Routine 08/06/2025 5:23 PM HOME RESTORATION SERVICE SUPERVISOR SPUTUM CULTURE WITH GRAM STAIN Routine 08/06/2025 5:23 PM HOME RESTORATION SERVICE SUPERVISOR C. DIFFICILE DETECTION Routine 5:20 PM HOME RESTORATION SERVICE SUPERVISOR POC GLUCOSE Routine 08/06/2025 5:17 PM HOME RESTORATION SERVICE SUPERVISOR CBC WITH DIFFERENTIAL Routine 08/06/2025 5:17 PM HOME RESTORATION SERVICE SUPERVISOR COMPREHENSIVE METABOLIC PANEL Routine 08/06/2025 5:17 PM HOME RESTORATION SERVICE SUPERVISOR HEMOGLOBIN A1C Routine 08/06/2025 5:17 PM HOME RESTORATION SERVICE SUPERVISOR CD4/CD8 T CELLS PANEL Routine 08/06/2025 5:17 PM HOME RESTORATION SERVICE SUPERVISOR BLOOD CULTURE Routine 08/06/2025 5:17 PM HOME RESTORATION SERVICE SUPERVISOR BLOOD CULTURE Routine 08/06/2025 5:17 PM HOME RESTORATION SERVICE SUPERVISOR BLOOD CULTURE Routine 08/06/2025 5:17 PM HOME RESTORATION SERVICE SUPERVISOR BLOOD CULTURE Routine 08/06/2025 5:17 PM HOME RESTORATION SERVICE SUPERVISOR XR CHEST PA OR AP 1 VW Routine 4:35 PM HOME RESTORATION SERVICE SUPERVISOR from Last 3 Months Results * TELEMETRY REPORT (09/11/2025 7:44 AM HOME RESTORATION SERVICE SUPERVISOR) Only the most recent of5 resultswithin the time period is included. us Provider Scanning ECG ORDERABLES Final Result * PROCALCITONIN (09/05/2025 9:04 PM HOME RESTORATION SERVICE SUPERVISOR) PROCALCITONIN <0.06 <=0.25 ng/mL 09/05/2025 10:05 PM HOME RESTORATION SERVICE SUPERVISOR [facility] Blood Venipuncture / Unknown 09/05/2025 9:04 PM HOME RESTORATION SERVICE SUPERVISOR 09/05/2025 9:16 PM HOME RESTORATION SERVICE SUPERVISOR Narrative [facility] - 09/05/2025 10:05 PM HOME RESTORATION SERVICE SUPERVISOR The utility of procalcitonin is limited/NOT recommended [...] Final Result Performing Organization Address [facility] Co de Phone Number [facility]# [id number] [address] [place] [address] * (ABNORMAL) C-REACTIVE PROTEIN (09/05/2025 9:04 PM HOME RESTORATION SERVICE SUPERVISOR) [facility] CRP 27.1(H) <5.0 mg/L 09/05/2025 9:58 PM HOME RESTORATION SERVICE SUPERVISOR [facility] Blood Venipuncture / Unknown 09/05/2025 9:04 PM HOME RESTORATION SERVICE SUPERVISOR 09/05/2025 9:16 PM HOME RESTORATION SERVICE SUPERVISOR Frank Camarillo NP CHEMISTRY ORDERABLES Final Result Performing Organization Address [facility] de Phone Number [facility]# [id number] [address] [place] [address] * PNEUMONIA PATHOGEN PCR PANEL (09/05/2025 11:40 AM HOME RESTORATION SERVICE SUPERVISOR) Only the most recent of2 resultswithin the time period is included. [facility] Pneumonia Pathogen PCR Panel NOT DETECTED No nucleic acids detected. 09/05/2025 3:58 PM HOME RESTORATION SERVICE SUPERVISOR [facility] Sputum COUGHED SPUTUM SPECIMEN / Unknown Collection / Unknown 09/05/2025 11:40 AM HOME RESTORATION SERVICE SUPERVISOR 09/05/2025 11:47 AM HOME RESTORATION SERVICE SUPERVISOR Letitia [facility] - 09/05/2025 3:58 PM HOME RESTORATION SERVICE SUPERVISOR A negative result does not exclude the [...] ORD ERABLES Final Result Performing Organization Address City/State/[facility] Co de Phone Number [facility]# [id number] [address] [place] [address] * SPUTUM CULTURE WITH GRAM STAIN (09/05/2025 11:39 AM HOME RESTORATION SERVICE SUPERVISOR) Only the most recent of2 resultswithin the time period is included. CULTURE No pathogens isolated. Normal respiratory nga present. 09/07/2025 10:30 AM HOME RESTORATION SERVICE SUPERVISOR [facility] GRAM STAIN Non diagnostic pattern 09/07/2025 10:30 AM HOME RESTORATION SERVICE SUPERVISOR [facility] GRAM STAIN 3+ (Moderate) Polymorphonuclear WBC 09/07/2025 10:30 AM HOME RESTORATION SERVICE SUPERVISOR [facility] Sputum COUGHED SPUTUM SPECIMEN / Unknown Collection / Unknown 09/05/2025 11:39 AM HOME RESTORATION SERVICE SUPERVISOR 09/05/2025 11:47 AM HOME RESTORATION SERVICE SUPERVISOR Frank Camarillo NP MICROBIOLOGY - GENERAL ORD ERABLES Final Result Performing Organization Address City/[facility]/ZIP Co de Phone Number [facility] CLYENNI# [id number] [address] [place] [address] * (ABNORMAL) TROPONIN 6 HR, 5TH GEN (09/05/2025 1:59 AM HOME RESTORATION SERVICE SUPERVISOR) TROPONIN T, 6 HR 5TH GEN 15(H) <11 ng/L 09/05/2025 3:38 AM HOME RESTORATION SERVICE SUPERVISOR [facility] DELTA 6HR TROPONIN T 1 See Interp. 09/05/2025 3:38 AM HOME RESTORATION SERVICE SUPERVISOR [facility] Blood Venipuncture / Unknown 09/05/2025 1:59 AM HOME RESTORATION SERVICE SUPERVISOR 09/05/2025 3:05 AM HOME RESTORATION SERVICE SUPERVISOR Narrative [facility] - 09/05/2025 3:38 AM HOME RESTORATION SERVICE SUPERVISOR Troponin elevated. Delta indeterminate. Delay in collection of timed specimen beyond recommended collection interval. Results must be interpreted in clinical context. Aleksandar Mathis DO CHEMISTRY ORDERABLES Final Result Performing Organization Address [facility] Co de Phone Number [facility] CLIA# [id number] [address] [place] [address] * CTA CHEST W AND/OR WO CONTRAST (09/04/2025 10:59 PM HOME RESTORATION SERVICE SUPERVISOR) Anatomical Region Laterality Modality Chest Computed Tomogra phy 09/04/2025 10:5 0 PM HOME RESTORATION SERVICE SUPERVISOR Impressions 09/04/2025 11:24 PM HOME RESTORATION SERVICE SUPERVISOR IMPRESSION: 1. No pulmonary emboli. 2. Interval removal of left pleural catheter. 3. Redemonstrated right middle lobe pulmonary mass with extensive mediastinal/hilar lymphadenopathy. 4. Hypodensities throughout the liver consistent with hepatic metastases. DICTATION LOCATION: Location 4 Narrative 09/04/2025 11:24 PM HOME RESTORATION SERVICE SUPERVISOR EXAM: CTA CHEST W AND/OR WO CONTRAST, [...] OR AP 1 VW (09/04/2025 9:41 PM HOME RESTORATION SERVICE SUPERVISOR) Only the most recent of12 resultswithin the time period is included. Anatomical Region Laterality Modality Chest Computed Radiogr aphy 09/04/2025 9:42 PM HOME RESTORATION SERVICE SUPERVISOR Impressions 09/04/2025 9:46 PM HOME RESTORATION SERVICE SUPERVISOR IMPRESSION: 1. Right hilar/middle lobe mass, largely unchanged. There is some increasing opacity more peripheral aspect of the right midlung which could relate atelectasis or pneumonia. DICTATION LOCATION: Location 4 Narrative 09/04/2025 9:46 PM HOME RESTORATION SERVICE SUPERVISOR XR CHEST PA OR AP 1 VW [...] 2 HR, 5TH GEN (09/04/2025 9:01 PM HOME RESTORATION SERVICE SUPERVISOR) Pathologist [facility] TROPONIN T, 2 HR 5TH GEN 15(H) <=10 ng/L 09/04/2025 9:38 PM HOME RESTORATION SERVICE SUPERVISOR [facility] DELTA 2HR TROPONIN T 1 See Interp. 09/04/2025 9:38 PM HOME RESTORATION SERVICE SUPERVISOR [facility] Blood Venipuncture / Unknown 09/04/2025 9:01 PM HOME RESTORATION SERVICE SUPERVISOR 09/04/2025 9:04 PM HOME RESTORATION SERVICE SUPERVISOR Narrative [facility] - 09/04/2025 9:38 PM HOME RESTORATION SERVICE SUPERVISOR Troponin elevated. Delta not changing. Delay in collection of timed specimen beyond recommended collection interval. Results must be interpreted in clinical context. Aleksandar Mathis DO CHEMISTRY ORDERABLES Final Result [facility]# [id number] 5 [facility] [place] [address] [place] [address] * (ABNORMAL) BLOOD GAS VENOUS (09/04/2025 6:55 PM HOME RESTORATION SERVICE SUPERVISOR) Pathologist [facility] PH BLOOD POC 7.47(H) 7.32 - 7.43 09/04/2025 6:55 PM [facility] PCO2 POC 44 38 - 50 mm Hg 09/04/2025 6:55 PM [facility] PO2 POC 83(H) 25 - 40 mm Hg 09/04/2025 6:55 PM [facility] HCO3 (CALC) POC 32(H) 22 - 29 mmol/L 09/04 6:55 PM [facility] BASE EXCESS POC 7 No Reference Range Established mmol/L 09/04/2025 6:55 PM [facility] O2 SATURATION CALCULATED POC 97(H) 40 - 70 % 09/04/2025 6:55 PM [facility] Comment:Calculated sO2 may b e less accurate due to the factors affecting the oxygen dissociation curve. Measured sO2 by Co-oximetry is unaffected by these factors. Clinical correlation is suggested. PH TEMP CORRECT 7.47(H) 7.32 - 7.43 09/04/20 25 6:55 PM [facility] PCO2 TEMP CORRECT 44 38 - 50 mm Hg 09/04/2025 6:55 PM [facility] PO2 TEMP CORRECT 83(H) 25 - 40 mm Hg 09/04 6:55 PM [facility] SPECIMEN SOURCE, GASES POC Venous 09/04/2025 6:55 PM [facility] TCO2 (CALC) POC 33(H) 22 - 26 mmol/L 09/04 6:55 PM [facility] PATIENT'S TEMPERATURE POC 37.0 degrees 09/04/2025 6:55 PM [facility] Blood, venous 09/04/2025 6:5 5 PM HOME RESTORATION SERVICE SUPERVISOR 09/04/2025 6:57 PM HOME RESTORATION SERVICE SUPERVISOR us Mitch Lockwood DO ABG ORDERABLES Final Result [facility] CLIA# [id number] [address] [place] [address] * (ABNORMAL) TROPONIN BASELINE, 5TH GEN (09/04/2025 6:47 PM HOME RESTORATION SERVICE SUPERVISOR) [facility] TROPONIN T, BASELINE 5TH GEN 14(H) <=10 ng/L 09/04/2025 9:01 PM HOME RESTORATION SERVICE SUPERVISOR [facility] Blood Venipuncture / Unknown 09/04/2025 6:47 PM HOME RESTORATION SERVICE SUPERVISOR 09/04/2025 6:56 PM HOME RESTORATION SERVICE SUPERVISOR [facility] - 09/04/2025 9:01 PM HOME RESTORATION SERVICE SUPERVISOR Troponin elevated. Aleksandar Mathis DO CHEMISTRY ORDERABLES Final Result [facility]# [id number] [address] [place] [address] * RESPIRATORY PATHOGEN PCR PANEL (09/04/2025 6:47 PM HOME RESTORATION SERVICE SUPERVISOR) [facility] Respiratory Pathogen PCR Panel NOT DETECTED No respiratory pathogen nucleic acids detected. 09/04/2025 8:07 PM HOME RESTORATION SERVICE SUPERVISOR [facility] COVID-19 PCR NOT DETECTED Not Detected 09/04/2025 8:07 PM HOME RESTORATION SERVICE SUPERVISOR [facility] Upper Respiratory ENTIRE NASOPHARYNX / Unknown 09/04/2025 6:47 PM HOME RESTORATION SERVICE SUPERVISOR 09/04/2025 6:56 PM HOME RESTORATION SERVICE SUPERVISOR [facility] - 09/04/2025 8:07 PM HOME RESTORATION SERVICE SUPERVISOR The Film Array Respiratory Panel (RP2.1) is [...] Bordetella parapertussis Chlamydophila pneumoniae Mycoplasma pneumoniae us Mitch Lockwood DO MICROBIOLOGY - GENERAL ORDERABLE S Final Result [facility] CLDE# [id number] [address] [place] [address] * (ABNORMAL) CBC WITH DIFFERENTIAL (09/04/2025 6:47 PM HOME RESTORATION SERVICE SUPERVISOR) Only the most recent of14 resultswithin the time period is included. WBC 10.1(H) 4.0 - 9.8 K/uL 09/04/2025 7:[address] [facility] RBC 3.90 3.90 - 4.90 M/uL 09/04/2025 7:[address] [facility] HEMOGLOBIN 10.5(L) 11.8 - 14.8 g/dL 09/04/2025 7:[address] [facility] HEMATOCRIT 33.7(L) 35.5 - 44.0 % 09/04/2025 7:[address] [facility] MCV 86.4 82.0 - 99.0 fL 09/04/2025 7:[address] [facility] MCH 26.9(L) 27.2 - 32.6 pg 09/04/2025 7:[address] [facility] MCHC 31.2(L) 31.5 - 35.5 g/dL 09/04/2025 7:[address] [facility] RDW 15.7(H) 11.5 - 14.5 % 09/04/2025 7:01 PM [facility] RDW-STDEV 49.1(H) 37.1 - 48.7 fL 09/04/2025 7:01 PM [facility] PLATELETS 389(H) 140 - 350 K/uL 09/04/2025 7:01 PM [facility] MPV 9.3 9.3 - 12.4 fL 09/04/2025 7:01 PM HOME RESTORATION SERVICE SUPERVISOR [employer] [facility]ORY [facility] NEUTROPHILS 78 % 09/04/2025 7:[address] [facility] LYMPHOCYTES 13 % 09/04/2025 7:[address] [facility] MONOCYTES 8 % 09/04/2025 7:01 PM [facility] EOSINOPHILS 0 % 09/04/2025 7:01 PM [facility] BASOPHILS 0 % 09/04/2025 7:01 PM [facility] IMMATURE GRANULOCYTES 1 % 09/04/2025 7:01 PM [facility] Comment:IG (Immature Granulo cyte) count includes Metamyelocytes, Myelocytes, and Promyelocytes NEUTROPHIL ABSOLUTE 7.80(H) 1.90 - 7.00 K/uL 09/04/2025 7:01 PM [facility] LYMPHOCYTE ABSOLUTE 1.30 0.70 - 4.50 K/uL 09/04/2025 7:01 PM [facility] MONOCYTE ABSOLUTE 0.79 0.10 - 1.30 K/uL 09/04/2025 7:01 PM [facility] EOSINOPHIL ABSOLUTE 0.01 0.00 - 0.70 K/uL 09/04/2025 7:[address] [facility] BASOPHILS ABSOLUTE 0.02 0.00 - 0.20 K/uL 09/04/2025 7:01 PM [facility] IMMATURE GRANULOCYTES ABSOLUTE 0.14(H) 0.00 - 0.03 K/uL 09/04/2025 7:01 PM [facility] Blood Venipuncture / Unknown 09/04/2025 6:47 PM HOME RESTORATION SERVICE SUPERVISOR 09/04/2025 6:56 PM HOME RESTORATION SERVICE SUPERVISOR us Mitch Lockwood DO HEMATOLOGY ORDERABLES Final Resu lt [facility] CLIA# [id number] [address] [facility] [address] [place] [address] * (ABNORMAL) BRAIN NATRIURETIC PEPTIDE, BNP OR PROBNP (09/04/2025 6:47 PM HOME RESTORATION SERVICE SUPERVISOR) Only the most recent of2 resultswithin the time period is included. PROBNP, N TERMINAL 155(H) <124 pg/mL 09/04/2025 7:[address] [facility] Comment: INTERPRETIVE COMMENT based on diagnosis: [...] Blood Venipuncture / Unknown 09/04/2025 6:47 PM HOME RESTORATION SERVICE SUPERVISOR 09/04/2025 6:56 PM HOME RESTORATION SERVICE SUPERVISOR Mitch Lockwood DO CHEMISTRY ORDERABLES Final Resul t [facility]# [id number] [address] [facility] [place] [address] * (ABNORMAL) BASIC METABOLIC PANEL (09/04/2025 6:47 PM HOME RESTORATION SERVICE SUPERVISOR) Only the most recent of4 resultswithin the time period is included. SODIUM 133(L) 136 - 145 mmol/L 09/04/2025 7:[address] [facility] POTASSIUM 4.2 3.5 - 5.0 mmol/L 09/04/2025 7:[address] [facility] CHLORIDE 95(L) 98 - 107 mmol/L 09/04/2025 7:[address] [facility] CO2 31(H) 22 - 29 mmol/L 09/04/2025 7:[address] [facility] CALCIUM 8.8 8.6 - 10.2 mg/dL 09/04/2025 7:35 PM [facility] BUN 13 8 - 23 mg/dL 09/04/2025 7:35 PM [facility] CREATININE 0.30(L) 0.51 - 0.95 mg/dL 09/04/2025 7:35 PM [facility] GLUCOSE 109(H) 74 - 99 mg/dL 09/04/2025 7:35 PM [facility] GFR >60 >=60 mL/min/1.7 3 sq meter 09/04/2025 7:35 PM [facility] Comment:eGFR calculated with 2020 CKD-EPI equation. Vegetarian diet, extremely high or low muscle mass, and may affect results. Cystatin C with Glomerular Filtration Rate is a suitable alternative for these patients. ANION GAP 7(L) 8 - 16 mmol/L 09/04/2025 7:35 PM [facility] Blood Venipuncture / Unknown 09/04/2025 6:47 PM HOME RESTORATION SERVICE SUPERVISOR 09/04/2025 6:56 PM HOME RESTORATION SERVICE SUPERVISOR us Mitch Lockwood DO CHEMISTRY ORDERABLES Final Resul t [id number] [address] [id number] * EKG 12-LEAD (09/04/2025 5:32 PM HOME RESTORATION SERVICE SUPERVISOR) 09/04/2025 5:32 PM HOME RESTORATION SERVICE SUPERVISOR Narrative INTERFACE SYSTEM - 09/05/2025 11:59 AM 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 Gender: F Tax Form Preparer: [id number] : 1960 Requested By: Order Number: [id number] Reading MD: Hal Deleon Measurements Intervals [place] Rate: 94 P: 65 [place]: 145 QRS: 28 QRSD: 85 T: 38 QT: 332 QTc: 416 Interpretive Statements Sinus rhythm Borderline ST depression, anterolateral leads Electronically Signed On 09-05-2025 11:59:44 HOME RESTORATION SERVICE SUPERVISOR by Hal Deleon Mitch Lockwood DO ECG ORDERABLES Final Result Performing Organization Address City/State/[facility] Co de Phone Number INTERFACE SYSTEM Refer to clinic/hospital department * Critical Care (09/04/2025 5:05 PM HOME RESTORATION SERVICE SUPERVISOR) Narrative Aleksandar Mathis DO - 09/04/2025 5:05 PM HOME RESTORATION SERVICE SUPERVISOR Aleksandar Mathis DO 09/04/2025 11:28 PM Critical [...] (ABNORMAL) COMPREHENSIVE METABOLIC PANEL (08/29/2025 2:11 AM HOME RESTORATION SERVICE SUPERVISOR) Only the most recent of12 resultswithin the time period is included. SODIUM 132(L) 136 - 145 mmol/L 08/29/2025 3:18 AM [facility] [employer] [facility]AT[facility] SERVICES [facility] POTASSIUM 4.1 3.5 - 5.0 mmol/L 08/29/2025 3:18 AM [facility] [email or web address] [facility] CHLORIDE 93(L) 98 - 107 mmol/L 08/29/2025 3:18 AM HOME RESTORATION SERVICE SUPERVISOR [employer] LAB[facility]ATORY [facility] CO2 33(H) 22 - 29 mmol/L 08/29/2025 3:18 AM [facility] [email or web address] [facility] CALCIUM 8.4(L) 8.6 - 10.2 mg/dL 08/29/2025 3:18 AM HOME RESTORATION SERVICE SUPERVISOR [email or web address] [facility] BUN 12 8 - 23 mg/dL 08/29/2025 3:18 AM [facility] [email or web address] [facility] CREATININE 0.32(L) 0.51 - 0.95 mg/dL 08/29/2025 3:18 AM [facility] [email or web address] [facility] GLUCOSE 118(H) 74 - 99 mg/dL 08/29/2025 3:18 AM [facility] [email or web address] [facility] TOTAL PROTEIN 5.4(L) 6.7 - 8.6 g/dL 08/29/2025 3:18 AM HOME RESTORATION SERVICE SUPERVISOR [email or web address] [facility] ALBUMIN 3.2(L) 3.5 - 5.2 g/dL 08/29/2025 3:18 AM HOME RESTORATION SERVICE SUPERVISOR [employer] LABORATORY [facility] BILIRUBIN TOTAL <0.2 0.0 - 1.1 mg/dL 08/29/2025 3:18 AM [employer]ICE SUPER[email or web address] [facility] ALKALINE PHOSPHATASE 124(H) 35 - 104 U/L 08/29/2025 3:18 AM HOME [employer]ATION SERVICE SUPER[employer] LABORATORY [facility] AST 27 <33 U/L 08/29/2025 3:18 AM [employer] LABORATORY SERVICES [facility] ALT 23 <34 U/L 08/29/2025 3:18 AM [facility] GFR >60 >=60 mL/min/1.7 3 sq meter 08/29/2025 3:18 AM [facility] Comment:eGFR calculated with 2020 CKD-EPI equation. Vegetarian diet, extremely high or low muscle mass, and may affect results. Cystatin C with Glomerular Filtration Rate is a suitable alternative for these patients. ANION GAP 6(L) 8 - 16 mmol/L 08/29/2025 3:18 AM [facility] Blood Venipuncture / Unknown 08/29/2025 2:11 AM [employer] SUPERVISOR 08/29/2025 2:31 AM HOME [employer]ATION SERVICE SUPERVISOR Narrative [facility] - 08/29/2025 3:18 AM HOME [employer]ATION SERVICE SUPERVISOR Samples containing indocyanine green cause interferences on Total and/or Direct Bilirubin and must not be measured. [employer] CHEMISTRY ORDERABLES Final Result Performing Organization Address City/State/[facility] Co de Phone Number [facility]# [phone] [id number] [facility] [place] [address] * CT CHEST WO CONTRAST (08/26/2025 9:28 AM HOME RESTORATION SERVICE SUPERVISOR) Anatomical Region Laterality Modality Chest Computed Tomogra phy 08/26/2025 9:18 AM HOME RESTORATION SERVICE SUPERVISOR Impressions 08/26/2025 10:39 AM HOME RESTORATION SERVICE SUPERVISOR IMPRESSION: 1. Small left pneumothorax. Left pleural catheter in place. 2. Unchanged right middle lobe pulmonary mass. 3. Similar mediastinal and hilar lymphadenopathy. 4. Unchanged metastatic lesions within the liver. 5. Interval mild superior endplate compression fracture at T10. DICTATION LOCATION: Location 4 Narrative 08/26/2025 10:39 AM HOME RESTORATION SERVICE SUPERVISOR CT CHEST WO CONTRAST INDICATION: Pneumothorax, pneumothorax. [...] AND LATERAL 2 VW (08/25/2025 3:36 PM HOME RESTORATION SERVICE SUPERVISOR) Anatomical Region Laterality Modality Chest Computed Radiogr aphy 08/25/2025 3:37 PM HOME RESTORATION SERVICE SUPERVISOR Impressions 08/25/2025 4:13 PM HOME RESTORATION SERVICE SUPERVISOR IMPRESSION: Known left apical pneumothorax has slightly increased in size. DICTATION LOCATION: Location [address] [place] [address] Narrative 08/25/2025 4:13 PM HOME RESTORATION SERVICE SUPERVISOR XR CHEST PA AND LATERAL 2 VW [...] size. DICTATION LOCATION: Location 1 - [facility] Orlando Florez MD DIAGNOSTIC IMAGING ORDERABLES Fi nal Result * VITAMIN B12 AND FOLATE (08/22/2025 12:38 PM HOME RESTORATION SERVICE SUPERVISOR) VITAMIN B12 703 232 - 1,245 pg/mL 08/22/2025 3:00 PM [facility] Comment:It has been reported that between 5 to 10% of patients with values between 200 and 400 pg/mL may experience neuropsychiatric and hematologic abnormalities due to occult B12 deficiency. Less than 1% of patients with values above 400 pg/mL will have symptoms. FOLATE, SERUM >20.0 >4.5 ng/mL 08/22/2025 3:00 PM HOME RESTORATION SERVICE SUPERVISOR [facility] Blood Venipuncture / Unknown 08/22/2025 12:38 PM HOME RESTORATION SERVICE SUPERVISOR 08/22/2025 1:47 PM HOME RESTORATION SERVICE SUPERVISOR Sharon AG CHEMISTRY ORDERABLES Final Result Performing Organization Address City/[facility]/ZIP Co de Phone Number [facility]# [id number] [address] [facility] JANE SCHAFER, [place] [address] * (ABNORMAL) IRON, TIBC, AND PERCENT SATURATION (08/21/2025 8:25 PM HOME RESTORATION SERVICE SUPERVISOR) Pathologist [facility] IRON 41 37 - 145 ug/dL 08/22/2025 12:58 PM [facility] TIBC 337 250 - 450 ug/dL 08/22/2025 12:58 PM HOME RESTORATION SERVICE SUPERVISOR [facility] IRON % SATURATION 12(L) 15 - 50 % 08/22/2025 12:58 PM HOME RESTORATION SERVICE SUPERVISOR [facility] TRANSFERRIN 265 200 - 360 mg/dL 08/22/2025 12:58 PM HOME RESTORATION SERVICE SUPERVISOR [facility] Blood Venipuncture / Unknown 08/21/2025 8:25 PM HOME RESTORATION SERVICE SUPERVISOR 08/21/2025 8:57 PM HOME RESTORATION SERVICE SUPERVISOR Sharon AG CHEMISTRY ORDERABLES Final Result Performing Organization Address City/[facility]/ZIP Co de Phone Number [facility] CLIA# [id number] [address] [place] [address] * XR FLUORO CENTRAL VENOUS ACCESS (08/21/2025 3:30 PM HOME RESTORATION SERVICE SUPERVISOR) Anatomical Region Laterality Modality Computed Radiogr aphy 08/21/2025 4:02 PM HOME RESTORATION SERVICE SUPERVISOR Impressions 08/21/2025 7:16 PM HOME RESTORATION SERVICE SUPERVISOR IMPRESSION: 1. Intraoperative fluoroscopy provided for left chest port-a-cath placement. DICTATION LOCATION: Location [address] [place] [address] Narrative 08/21/2025 7:16 PM HOME RESTORATION SERVICE SUPERVISOR EXAMINATION: X-RAY FLUORO CENTRAL VENOUS ACCESS DATE: [...] port-a-cath placement. DICTATION LOCATION: Location - [facility] us Balaji Win MD DIAGNOSTIC IMAGING ORDERABLES Final Result * [place] ANES INSERT ENDOTRACHEAL AIRWAY (08/21/2025 1:20 PM HOME RESTORATION SERVICE SUPERVISOR) Narrative Kt Singer AA-C - 08/21/2025 1:20 PM HOME RESTORATION SERVICE SUPERVISOR Kt Singer AA-C 08/21/2025 1:35 PM Airway Date/Time: 08/21/2025 1:20 PM Location: OR Plan: routine intubation Patient Identity Confirmed by: Verbally with patient and armband Airway: not difficult Staffing Performed: WINDOWS SYSTEMS ENGINEER/CAA Authorized by: Mimi Lawler MD Performed by: [...] * (ABNORMAL) POC GLUCOSE (08/21/2025 12:27 PM HOME RESTORATION SERVICE SUPERVISOR) Only the most recent of36 resultswithin the time period is included. GLUCOSE POC 107(H) 74 - 99 mg/dL 08/21/2025 12:27 PM HOME RESTORATION SERVICE SUPERVISOR [facility] SPECIMEN SOURCE, GLUCOSE POC Whole Blood 08/21/2025 12:27 PM HOME RESTORATION SERVICE SUPERVISOR [facility] Blood, whole 08/21/2025 12:2 7 PM HOME RESTORATION SERVICE SUPERVISOR 08/21/2025 12:42 PM HOME RESTORATION SERVICE SUPERVISOR Balaji Win MD POINT OF CARE TESTING Final Re sult [facility]# [id number] [facility] [place] [id number] * PET TUMOR OR INFECTION IMG W CT SKB MDTH (08/17/2025 11:44 AM HOME RESTORATION SERVICE SUPERVISOR) Anatomical Region Laterality Modality Positron Emissio n Tomography (PET) 08/17/2025 11:4 5 AM HOME RESTORATION SERVICE SUPERVISOR Impressions 08/17/2025 12:51 PM HOME RESTORATION SERVICE SUPERVISOR IMPRESSION: 1. Right middle lobe malignancy is [...] is recommended. DICTATION LOCATION: Location 7 - [facility] 08/17/2025 12:51 PM HOME RESTORATION SERVICE SUPERVISOR EXAMINATION: PET TUMOR OR INFECTION IMG W [...] TUMOR OR INFECTION IMG W CT SKB [facility] DATE: 08/17/2025 11:44 AM REFERRING PHYSICIAN: DIMPLE [...] visualization is recommended. DICTATION LOCATION: Location - [facility] Dimple Neff MD ORDERABLES Final Result * (ABNORMAL) CBC WITHOUT DIFFERENTIAL (08/14/2025 9:17 AM HOME RESTORATION SERVICE SUPERVISOR) WBC 9.5 4.0 - 9.8 K/uL 08/14/2025 10:[address] [facility] RBC 3.64(L) 3.90 - 4.90 M/uL 08/14/2025 10:[address] [facility] HEMOGLOBIN 9.7(L) 11.8 - 14.8 g/dL 08/14/2025 10:[address] [facility] HEMATOCRIT 30.6(L) 35.5 - 44.0 % 08/14/2025 10:[address] [facility] MCV 84.1 82.0 - 99.0 fL 08/14/2025 10:[address] [facility] MCH 26.6(L) 27.2 - 32.6 pg 08/14/2025 10:[address] [facility] MCHC 31.7 31.5 - 35.5 g/dL 08/14/2025 10:[address] [facility] PLATELETS 368(H) 140 - 350 K/uL 08/14/2025 10:[address] [facility] MPV 9.5 9.3 - 12.4 fL 08/14/2025 10:[address] [facility] RDW 14.6(H) 11.5 - 14.5 % 08/14/2025 10:27 AM HOME RESTORATION SERVICE SUPERVISOR [facility] RDW-STDEV 44.6 37.1 - 48.7 fL 08/14/2025 10:27 AM HOME RESTORATION SERVICE SUPERVISOR [facility] Blood Venipuncture / Unknown 08/14/2025 9:17 AM HOME RESTORATION SERVICE SUPERVISOR 08/14/2025 9:47 AM HOME RESTORATION SERVICE SUPERVISOR us Mera [place] ART COORDINATOR HEMATOLOGY ORDERABLES Shalini norris Result [facility] CLIA# [id number] [address] [place] [address] * [facility] X[facility] DNA AND RNA SOLID TUMOR (08/13/2025 3:00 PM HOME RESTORATION SERVICE SUPERVISOR) Reason for Study To identify somatic and germline mutations relevant to patient's cancer. 09/07/2025 8:20 AM HOME RESTORATION SERVICE SUPERVISOR [facility] Genetic Diseases Assessed Cancer 09/07/2025 8:20 AM HOME RESTORATION SERVICE SUPERVISOR [facility] Description of Ranges of DNA Sequences Examined 648 gene panel 09/07/2025 8:20 AM HOME RESTORATION SERVICE SUPERVISOR [facility] Overall Interpretation positive 09/07/2025 8:20 AM HOME RESTORATION SERVICE SUPERVISOR [facility] MSI Stable 09/07/2025 8:20 AM HOME RESTORATION SERVICE SUPERVISOR [facility] TMB 11.6 m/MB 09/07/2025 8:20 AM HOME RESTORATION SERVICE SUPERVISOR [facility] [email or web address] 09/07/2025 8:20 AM HOME RESTORATION SERVICE SUPERVISOR [facility] Comment:[facility] link PD-L1 Interpretation by 22C3 negative 09/07/2025 8:20 AM HOME RESTORATION SERVICE SUPERVISOR [facility] PD-L1 Interpretation by 28-8 negative 09/07/2025 8:20 AM HOME RESTORATION SERVICE SUPERVISOR [facility] PD-L1 Interpretation by SP142 negative 09/07/2025 8:20 AM HOME RESTORATION SERVICE SUPERVISOR [facility] PD-L1 by SP142 Tiss Q <1 % 09/07/2025 8:20 AM HOME RESTORATION SERVICE SUPERVISOR [facility] PD-L1 (22C3) Combined Positive Score <1 09/07/2025 8:20 AM HOME RESTORATION SERVICE SUPERVISOR [facility] PD-L1 (22C3) Tumor Proportion Score <1 % 09/07/2025 8:20 AM HOME RESTORATION SERVICE SUPERVISOR [facility] PD-L1 (28-8) Cells.PD-L1/100 viab zina NFr Tiss ImStn <1 % 09/07/2025 8:20 AM HOME RESTORATION SERVICE SUPERVISOR [facility] PD-L1 (SP142) Cells.PD-L1/100 viab zina NFr Tiss ImStn <1 % 09/07/2025 8:20 AM HOME RESTORATION SERVICE SUPERVISOR [facility] PD-L1 Interpretation by SP263 negative 09/07/2025 8:20 AM HOME RESTORATION SERVICE SUPERVISOR [facility] PD-L1 (SP263) Cells. PD-L1/100 viab zina NFr Tiss ImStn <1 % 09/07/2025 8:20 AM HOME RESTORATION SERVICE SUPERVISOR [facility] Pertinent Negatives EGFR, KRAS, BRAF, ALK, ROS1, RET, MET, ERBB2 (HER2) 09/07/2025 8:20 AM HOME RESTORATION SERVICE SUPERVISOR [facility] Low Coverage Regions KDM5D 09/07/2025 8:20 AM HOME RESTORATION SERVICE SUPERVISOR [facility] Therapy Count 2 09/07/2025 8:20 AM HOME RESTORATION SERVICE SUPERVISOR [facility]: Potential Therapy 1 Gene: N/A Variant: N/A Match Type: tmb Agent: Pembrolizumab Drug Class: Anti-PD-1 MAb Tissue: Solid Tumors Association: Response Evidence Status: Consensus Evidence ID: FDA KDB Variant: TMB-High MSK Associated Evidence: MSK OncoKB, Level 1 Label: FDA On Label FDA Approved?: Yes On label?: Yes 09/07/2025 8:20 AM HOME RESTORATION SERVICE SUPERVISOR [facility]: Potential Therapy 2 Gene: 952^BARD1^[facility] Variant: BARD1 c.1677+1G>T Match Type: snvIndel Match Type Description: BARD1 c.1677+1G>T Agent: Olaparib Drug Class: PARP Inhibitor Tissue: Prostate Cancer Association: Response Evidence Status: Consensus Evidence ID: NCCN KDB Variant: Jyak-lu-wiqljjqb Label: FDA Off Label FDA Approved?: Yes On label?: No 09/07/2025 8:20 AM HOME RESTORATION SERVICE SUPERVISOR [facility] Trial Count 3 09/07/2025 8:20 AM HOME RESTORATION SERVICE SUPERVISOR [facility]: Clinical Trial Match 1 Clinical Trial NCT ID: [id number] Clinical Trial Title: A Study of PARG Inhibitor SDY804 in Participants With Advanced Solid Tumors Clinical Trial URL: [email or web address]://[facility]t [facility].gov/ct2/linda w/[email or web address] Clinical Phase: Phase 1 Clinical Trial Matches: BARD1 c.1677+1G>T mutation Clinical Trial Distance and Location: [address], [place], [place] 09/07/2025 8:20 AM HOME RESTORATION SERVICE SUPERVISOR [facility]: Clinical Trial Match 2 Clinical Trial NCT ID: [id number] Clinical Trial Title: A Study of a Selective T Cell Receptor (TCR) Targeting, Bifunctional Antibody-fusion Molecule [id number] in Participants With Advanced Solid Tumors Clinical Trial URL: https://clinicalt [facility].gov/ct2/linda w/[email or web address] Clinical Phase: Phase 1/Phase 2 Clinical Trial Matches: TMB-High Clinical Trial Distance and Location: [address], [place] 09/07/2025 8:20 AM HOME RESTORATION SERVICE SUPERVISOR [facility]: Clinical Trial Match 3 Clinical Trial NCT ID: [id number] Clinical Trial Title: A Study of [id number] in Participants With Advanced or Metastatic Solid Tumors Clinical Trial URL: [email or web address]://clinicalt [facility].gov/ct2/linda w/[email or web address] Clinical Phase: Phase 1 Clinical Trial Matches: SMARCA4 p.K800* mutation Clinical Trial Distance and Location: [address], [place], [place] 09/07/2025 8:20 AM HOME RESTORATION SERVICE SUPERVISOR [facility] xR Result 1 NEGATIVE Negative - This report is being issued to report the results of gene rearrangement and altered splicing analysis from RNA sequencing. No gene rearrangements nor reportable altered splicing events were identified from RNA sequencing. 09/07/2025 8:20 AM HOME RESTORATION SERVICE SUPERVISOR [facility] Germline Variant Note No normal sample was received, therefore tumor/normal matched analysis was not performed. 09/07/2025 8:20 AM HOME RESTORATION SERVICE SUPERVISOR [facility] HER2 Result NEGATIVE 09/07/2025 8:20 AM HOME RESTORATION SERVICE SUPERVISOR [facility] Comment:[employer]HC Interprete: HER2 : 0, [...] is recommended. Score 0 09/07/2025 8:20 AM HOME RESTORATION SERVICE SUPERVISOR [facility] % Cells Complete Membrane Staining 0% 09/07/2025 8:20 AM HOME RESTORATION SERVICE SUPERVISOR [facility] Tissue 08/13/2025 3:00 PM HOME RESTORATION SERVICE SUPERVISOR 08/13/2025 3:00 PM HOME RESTORATION SERVICE SUPERVISOR Narrative This result has genomic variants that were not included in this document. Dimple Neff MD MOLECULAR ORDERABLES Edited Res ult - Final Performing Organization Address City/[facility]/ZIP Co de Phone Number [facility] [address], [address] [place] [id number], * [facility] XT NORMAL BLOOD (08/13/2025 3:00 PM HOME RESTORATION SERVICE SUPERVISOR) Pathologist [facility] Portal 08/13/2025 11:00 PM HOME RESTORATION SERVICE SUPERVISOR [facility] Comment:See NGS Report for R esults. Blood specimen (specimen) 08/13/2025 3:00 PM HOME RESTORATION SERVICE SUPERVISOR 08/13/2025 3:02 PM HOME RESTORATION SERVICE SUPERVISOR Dimple Neff MD MOLECULAR ORDERABLES Final Resu lt Performing Organization Address [facility]/ZIP Co de Phone Number [facility] [address], [address] [place] [address], [facility] [address], [address] [place] [address] * ECHOCARDIOGRAM W/ CONTRAST AGENT (08/13/2025 11:27 AM HOME RESTORATION SERVICE SUPERVISOR) Pathologist [facility] EJECTION FRACTION 60 INTERFACE SYSTEM 08/13/2025 10:3 8 AM HOME RESTORATION SERVICE SUPERVISOR Narrative INTERFACE SYSTEM - 08/13/2025 11:[address] [address] [email or web address] Transthoracic Echocardiogram Patient: Anat Davey Study ID: ECHO COMPLETE - Gender: F : 1960 Age: 65 Race: Height 160cm Study Date: 08/13/2025 Weight: 41.7kg Access. #: [id number] BP: *Referring Physician:* Anjali Santana Alpana *Ordering Physician:* Anjali Santana lace tearing supervisor: Nurse: STUDY CONCLUSIONS: SUMMARY: - Left ventricle: [...] AM. Prepared and Electronically Authenticated Cyrus Bernal [id number]:51:51 Procedure Note Cyrus Bernal MD - 08/13/[address] [place] [address] [email or web address] Transthoracic Echocardiogram Patient: Anat Davey Study ID: ECHO COMPLETE - Gender: F : 1960 Age: 65 Race: Height 160cm Study Date: 08/13/2025 Weight: 41.7kg Access. #: [id number] BP: *Referring Physician:* Anjali Santana Alpana *Ordering Physician:* Anjali Santana lace tearing supervisor: Nurse: STUDY CONCLUSIONS: SUMMARY: - Left ventricle: [...] 10:38 AM. Prepared andElectronically Authenticated Cyrus Bernal [id number]:51:51 us Anjali Santana MD US ORDERABLES Final Result Performing Organization Address City/State/[facility] Co de Phone Number INTERFACE SYSTEM Refer to clinic/hospital department * US VENOUS DOPPLER LEG BILATERAL (08/13/2025 9:57 AM HOME RESTORATION SERVICE SUPERVISOR) Anatomical Region Laterality Modality Lower Extremity Ultrasound 08/13/2025 10:4 2 AM HOME RESTORATION SERVICE SUPERVISOR Narrative 08/13/2025 2:31 PM HOME RESTORATION SERVICE SUPERVISOR [address] [address] [email or web address] Venous Exam Complete Lower Extremity Duplex Patient: Anat Davey Study ID: [id number] Gender: F : 1960 Age: 65 Race: Height Study Date: 08/13/2025 Weight: Access. #: [id number] *Referring Physician:Anjali Arango Alpana *Ordering Physician:Anjali Arango *Radio Assembler:Amber Sorto History: PMH: No prior study is [...] mm Prepared and Electronically Authenticated Queenie Mueller [id number]:31:34 Procedure Note Queenie Mueller MD - 08/13/2025 [address] [address] [place] [address] [email or web address] [email or web address] Venous Exam Complete Lower Extremity Duplex Patient: Anat Davey Study ID:[id number] Gender: F :1960 Age: 65 Race: Height Study Date:08/13/2025 Weight: Access. #:[id number] *Referring Physician:Anjali Arango Alpana *Ordering Physician:Anjali Arango *Radio Assembler:* Amber Catherine History: PMH: No prior study [...] mm Prepared and Electronically Authenticated Queenie Mueller [id number]:31:34 us Anjali Santana MD ORDERABLES Final Result * MRI BRAIN W WO CONTRAST (08/11/2025 5:50 PM HOME RESTORATION SERVICE SUPERVISOR) Anatomical Region Laterality Modality Head Magnetic Resonan ce 08/11/2025 5:51 PM HOME RESTORATION SERVICE SUPERVISOR Impressions 08/11/2025 6:13 PM HOME RESTORATION SERVICE SUPERVISOR IMPRESSION: 1. 1.0 x 0.8 x 1.0 [...] LOCATION: Location 4 Narrative 08/11/2025 6:13 PM HOME RESTORATION SERVICE SUPERVISOR MRI BRAIN W WO CONTRAST Date: 08/11/2025 [...] PELVIS W WO CONTRAST (08/11/2025 3:07 PM HOME RESTORATION SERVICE SUPERVISOR) Anatomical Region Laterality Modality Abdomen Computed Tomogra phy 08/11/2025 2:47 PM HOME RESTORATION SERVICE SUPERVISOR Impressions 08/11/2025 4:48 PM HOME RESTORATION SERVICE SUPERVISOR IMPRESSION: 1. Normal kidneys. No concerning renal [...] chest CT from 08/05/2025 are above the wddcb-mc-mmbk. DICTATION LOCATION: Location 1 - [facility] 08/11/2025 4:48 PM HOME RESTORATION SERVICE SUPERVISOR EXAMINATION: CT ABDOMEN PELVIS W WO CONTRAST [...] CT from 08/05/2025 are mostly above the znnal-tc-jhxb. A 2.8 cm right hilar mass is [...] CT from 08/05/2025 are mostly above the yudps-oj-uvlv. A 2.8 cm right hilar mass is [...] chest CT from 08/05/2025 are above the oaruv-ne-jmzc. DICTATION LOCATION: Location 1 [facility] Ravi Diaz MD CT ORDERABLES Final Result * HISTOPLASMA ANTIGEN, URINE (08/08/2025 11:21 PM HOME RESTORATION SERVICE SUPERVISOR) HISTOPLASMA GAL AG QN U <0.2 ng/mL 08/11/2025 11:56 PM HOME RESTORATION SERVICE SUPERVISOR [facility] Comment: REFERENCE RANGE: <0.2 ng/mL Histoplasma galactomannan [...] Unknown Collection / Unknown 08/08/2025 11:21 PM HOME RESTORATION SERVICE SUPERVISOR 08/09/2025 12:02 AM HOME RESTORATION SERVICE SUPERVISOR [facility] - 08/11/2025 11:56 PM HOME RESTORATION SERVICE SUPERVISOR Performing Organization Information: Site ID: EZ Name: [facility], Address: [address] [place] [address] Director: Judy Connell MD,PhD,JOSH Mal Espino MD URINE ORDERABLES F inal Result [facility] [phone] * PROCEDURE REPORT (08/08/2025 10:21 PM HOME RESTORATION SERVICE SUPERVISOR) Narrative Procedure Note Jeremy Owen MD - 08/08/2025 10:21 PM CST [facility] Pulmonology Patient Name: Anat Davey Procedure Date: [...] On: 08/08/2025 1:[address]; [place] [address] Jeremy Owen MD PROCEDURE/MINOR SURGICAL ORDE MAYRA Final Result * XR FLUORO LESS THAN 1 HOUR (08/08/2025 3:43 PM HOME RESTORATION SERVICE SUPERVISOR) Narrative 08/08/2025 3:44 PM HOME RESTORATION SERVICE SUPERVISOR Order information only. Exam was auto-finalized. us Jeremy Owen MD DIAGNOSTIC IMAGING ORDERABLES Final Result * HISTOPLASMA PCR (08/08/2025 3:26 PM HOME RESTORATION SERVICE SUPERVISOR) Pathologist [facility] SOURCE BAL RIGHT UPPER LUNG 08/14/2025 6:57 AM HOME RESTORATION SERVICE SUPERVISOR [facility] HISTOPLASMA CAPSULATUM DNA NOT DETECTED 08/14/2025 6:57 AM HOME RESTORATION SERVICE SUPERVISOR [facility] Comment: REFERENCE RANGE: NOT DETECTED This test was developed and its analytical performance characteristics have been determined by [facility]. It has not been cleared or approved by FDA. This assay has been validated pursuant to the CLIA regulations and is used for clinical purposes. BAL (Lung, RUL) Collection / Unknown 08/08/2025 3:26 PM HOME RESTORATION SERVICE SUPERVISOR 08/08/2025 4:22 PM HOME RESTORATION SERVICE SUPERVISOR Narrative [facility] - 08/14/2025 6:57 AM HOME RESTORATION SERVICE SUPERVISOR Performing Organization Information: Site ID: EZ Name: [facility], Address: [address] [place] [id number] Director: Judy Connell MD,PhD,JOSH Result [facility] Jeremy Owen MD BODY FLUIDS AND STOOLS Final Result Performing Organization Address City/State/[facility] Co de Phone Number [facility] [phone] * (ABNORMAL) ASPERGILLUS ANTIGEN, BRONCHOALVEOLAR LAVAGE (08/08/2025 3:26 PM HOME RESTORATION SERVICE SUPERVISOR) [facility] ASPERGILLUS GALACTOMANAN INDEX 0.77 08/11/2025 5:44 PM HOME RESTORATION SERVICE SUPERVISOR [facility] ASPERGILLUS GALACTOMANNAN AG DETECTED( A) 08/11/2025 5:44 PM HOME RESTORATION SERVICE SUPERVISOR [facility] Comment: Results for [...] RUL) Collection / Unknown 08/08/2025 3:26 PM HOME RESTORATION SERVICE SUPERVISOR 08/08/2025 4:22 PM HOME RESTORATION SERVICE SUPERVISOR Narrative [facility] - 08/11/2025 5:44 PM HOME RESTORATION SERVICE SUPERVISOR Performing Organization Information: Site ID: EZ Name: [facility], Address: [address] [place] [id number] Director: Judy Connell MD,PhD,JOSH Jeremy Owen MD MICROBIOLOGY - GENERAL ORDERA [facility] Final Result Performing Organization Address City/State/[facility] Co de Phone Number [facility] [phone] * PATHOLOGY (08/08/2025 3:26 PM HOME RESTORATION SERVICE SUPERVISOR) CASE REPORT Surgical Pathology Report Case: [id number] Authorizing Provider: Jeremy Owen MD Collected: 08/08/2025 03:26 PM Ordering Location: [facility] Received: 08/09/2025 07:17 AM [facility] Pathologist: Abel Coppola MD Specimens: A) - Lung, RUL, Transbronchial bx B) - Lymph node, Needle core bx Station 11R C) - Lung, LAMAR, Transbronchial bx 3:08 PM HOME RESTORATION SERVICE SUPERVISOR [facility] ADDENDUM 1 A request for [facility] was received on 08/13/[address] Dimple Neff. This test was performed on tissue from case [id number]. The case report, slides, and blocks for this case were retrieved from archives. The pathologist reviewed the original pathology report, examined candidate slides, and selected the most appropriate block(s). This selected material was forwarded to [facility] where the test was performed. The final report will be issued directly to the requesting physician. 3:[address] [facility] Addendum electronically signed by Abel Coppola MD on 08/15/2025 at 1508 HOME RESTORATION SERVICE SUPERVISOR FINAL DIAGNOSIS Lung, right upper lobe, transbronchial biopsy: - Poorly differentiated non-small cell carcinoma. Lymph node, station 11R, fine-needle aspiration: - Poorly differentiated non-small cell carcinoma. Lung, left upper lobe, transbronchial biopsy: - Bronchial mucosa and alveolar parenchyma with mild chronic inflammation. - No malignant population identified. 3:[address] [facility] at 1841 HOME RESTORATION SERVICE SUPERVISOR GROSS DESCRIPTION The specimens are received in [...] are submitted in cassettes C1 and C2. [facility] 3:08 PM [facility] MICROSCOPIC DESCRIPTION The slides are labeled [id number] and Anat Davey. This case reviewed in conjunction with the concomitant cytology material [id number]. The clinical history of a right hilar [...] be performed upon request. 5 3:[address] [facility] OPERATIVE PROCEDURE Transbronchial biopsy 5 3:08 PM [facility] CLINICAL INFORMATION Lung mass, adenopathy, HIV + 5 3:[address] [facility] COMMENT Special stain, immunohistochemical, and/or in situ hybridization results are interpreted with controls that demonstrate appropriate staining reactions. Note on use of immunohistochemistry reagents and in situ hybridization probes: These tests were developed and their performance characteristics determined by [facility], Department of Laboratory Medicine. It has not [...] part or completely in the following laboratories: [facility], CLIA #[id number] [address] [place] [address] [place] [address], [place] #[id number] [address] [place] [address] [facility]/[place], [facility] #[id number] [address] [place] [address] This report was created with the Intense voice-activated dictation system. Inherent to this system is the possibility of syntax, grammar, punctuation and other errors that could impact the interpretation of the report. If there are interpretative questions about aspects of this report, please contact the performing pathologist. 3:[address] [facility] Tissue (Lung, RUL) Collection / Unknown 08/08/2025 3:26 PM HOME [employer]ORATION SERVICE SUPERVISOR 08/09/2025 7:17 AM HOME RESTORATION SERVICE SUPERVISOR Tissue specimen (specimen) ENTIRE LYMPH NODE / Unknown 08/08/2025 3:26 PM HOME RESTORATION SERVICE SUPERVISOR 08/09/2025 7:17 AM HOME RESTORATION SERVICE SUPERVISOR Tissue specimen (specimen) (Lung, LAMAR) 08/08/2025 3:26 PM HOME RESTORATION SERVICE SUPERVISOR 08/09/2025 7:17 AM HOME RESTORATION SERVICE SUPERVISOR Jeremy Owen MD PATHOLOGY/CYTOLOGY ORDERABLES Edited Result - Final [facility]# [id number] [address] [facility] [place] [address] * RESPIRATORY CULTURE WITH GRAM STAIN (08/08/2025 3:26 PM HOME RESTORATION SERVICE SUPERVISOR) Only the most recent of2 resultswithin the time period is included. CULTURE No pathogens isolated. Normal respiratory nga reduced. 08/10/2025 10:[address] [facility] GRAM STAIN Non diagnostic pattern 08/10/2025 10:[address] [facility] GRAM STAIN 2+ (Few) Polymorphonuclear WBC 08/10/2025 10:[address] [facility] Washings (Lung, bilateral) Collection / Unknown 08/08/2025 3:26 PM HOME RESTORATION SERVICE SUPERVISOR 08/08/2025 4:22 PM HOME RESTORATION SERVICE SUPERVISOR Jeremy Owen MD MICROBIOLOGY - GENERAL ORDERA BLES Final Result Performing Organization Address [facility]/ZIP Co de Phone Number [facility] CLIA# [id number] [address] [place] [address] * (ABNORMAL) FUNGUS CULTURE, OTHER (08/08/2025 3:26 PM HOME RESTORATION SERVICE SUPERVISOR) Only the most recent of2 resultswithin the time period is included. CULTURE RANJEET ALBICANS(A) EZIO MCG/ML 09/04/2025 8:08 AM HOME RESTORATION SERVICE SUPERVISOR [facility] Washings (Lung, bilateral) Collection / Unknown 08/08/2025 3:26 PM HOME RESTORATION SERVICE SUPERVISOR 08/08/2025 4:22 PM HOME RESTORATION SERVICE SUPERVISOR Jeremy Owen MD MICROBIOLOGY - GENERAL ORDERA BLES Final Result Performing Organization Address [facility] de Phone Number [facility] CLIA# [id number] [address] [place] [address] * PNEUMOCYSTIS JIROVECI BY PCR (08/08/2025 3:26 PM HOME RESTORATION SERVICE SUPERVISOR) Only the most recent of2 resultswithin the time period is included. SOURCE BAL 08/10/2025 3:15 PM HOME RESTORATION SERVICE SUPERVISOR [facility] PNEUMOCYSTIS JIROVECI BY PCR Not Detected Not Detected 08/10/2025 3:15 PM HOME RESTORATION SERVICE SUPERVISOR [facility] Comment: (Note) This test was developed and its analytical performance characteristics have been determined by [employer]. It has not been cleared or approved by the U.S. Food and Drug Administration. This assay has been validated pursuant to the CLIA regulations and is used for clinical purposes. [facility] [address] [address],[address] [facility] [address] Laura Carranza MD, PhD BAL (Lung, RUL) Collection / Unknown 08/08/2025 3:26 PM HOME RESTORATION SERVICE SUPERVISOR 08/08/2025 4:22 PM HOME RESTORATION SERVICE SUPERVISOR Narrative [facility] - 08/10/2025 3:15 PM HOME RESTORATION SERVICE SUPERVISOR Performing Organization Information: Site ID: [id number] Name: [facility] Address: [address] [place] [address], [address] [place] [address] Director: Laura Carranza MD,PhD Jeremy Owen MD BODY FLUIDS AND STOOLS Final Result [facility] [phone] * (ABNORMAL) CELL COUNT WITH DIFFERENTIAL, BODY FLUID (08/08/2025 3:26 PM HOME RESTORATION SERVICE SUPERVISOR) APPEARANCE, BODY FLUID Cloudy 08/08/2025 5:47 PM HOME RESTORATION SERVICE SUPERVISOR [facility] - [facility] COLOR, FLD [place] 08/08/2025 5:47 PM HOME RESTORATION SERVICE SUPERVISOR [employer] LABORATORY SERVICES - . [facility] NUCLEATED CELL, FLD 21 1,395 - 3,734 /uL 08/08/2025 5:47 PM HOME RESTORATION SERVICE SUPERVISOR [employer] [facility]AT[facility] SERVICES - [facility] RBC, FLD 8,225 No Ref Range Estab /uL 08/08/2025 5:47 PM HOME RESTORATION SERVICE SUPERVISOR [employer] [facility] - [facility] NEUTROPHILS, FLD 81(H) 0 - 1 % 08/08/2025 5:47 PM HOME RESTORATION SERVICE SUPERVISOR [employer] [facility] - [facility] LYMPHOCYTE, FLD 2(L) 18 - 36 % 08/08/2025 5:47 PM HOME RESTORATION SERVICE SUPERVISOR [employer] LABORATORY SERVICES - . [facility] BASOPHIL FLD 1 No Ref Range Estab % 08/08/2025 5:47 PM HOME RESTORATION SERVICE SUPERVISOR [employer] [facility] - [facility] MONOCYTE/MACRO PHAGE, FLD 17(L) 64 - 80 % 08/08/2025 5:47 PM HOME RESTORATION SERVICE SUPERVISOR [employer] [facility] - [facility] BAL (Lung, RUL) Collection / Unknown 08/08/2025 3:26 PM HOME RESTORATION SERVICE SUPERVISOR 08/08/2025 4:22 PM HOME RESTORATION SERVICE SUPERVISOR Jeremy Owen MD BODY FLUIDS AND STOOLS Final Result [facility] SERVICES - [facility] CLIA# [id number] [address] [place] [address] * CYTOLOGY, NON GYNE (08/08/2025 3:26 PM HOME RESTORATION SERVICE SUPERVISOR) CASE REPORT Medical Cytology Report Case: [id number] Authorizing Provider: Jeremy Owen MD Collected: 08/08/2025 03:26 PM Ordering Location: [facility] Surg Received: 08/09/2025 06:20 AM [facility] Pathologist: Lindsay Montalvo MD Specimens: A) [...] left upper lobe, RUL 5 6:44 PM HOME RESTORATION SERVICE SUPERVISOR [facility] FINAL DIAGNOSIS Lymph node, station 11R, fine-needle [...] negative for fungal elements. 5 6:44 PM HOME RESTORATION SERVICE SUPERVISOR [facility] at 1844 HOME RESTORATION SERVICE SUPERVISOR GROSS DESCRIPTION Received are 8 containers all [...] fluid. One ThinPrep made. 5 6:44 PM HOME RESTORATION SERVICE SUPERVISOR [facility] MICROSCOPIC DESCRIPTION The slides are labeled [id number] and Anat Davey. This case is in conjunction with the concomitant surgical material [id number]. The radiographic description of a right hilar [...] be performed upon request. 5 6:[address] [facility] IMMEDIATE ASSESSMENT Lymph node, station 11R, fine-needle aspiration: Pass 1: Unsatisfactory Pass 2: Satisfactory Lymph node, station 7, fine-needle aspiration: Pass 3: Unsatisfactory Catrachita Valle, CT 5 6:[address] [facility] OPERATIVE PROCEDURE Fine-needle aspiration, bronchial brushing, BAL 5 6:44 PM [facility] CLINICAL INFORMATION Lung mass, adenopathy, HIV + 5 6:[address] [facility] COMMENT Special stain, immunohistochemical, and/or in situ hybridization results are interpreted with controls that demonstrate appropriate staining reactions. Note on use of immunohistochemistry reagents and in situ hybridization probes: These tests were developed and their performance characteristics determined by [facility], Department of Laboratory Medicine. It has not [...] part or completely in the following laboratories: [facility], CLIA #[id number] [address] [place] [id number] [place] [address]/[place], CLIA #[id number] [address] [place] [address] Rd[address] [place] [address]. 6:44 PM HOME RESTORATION SERVICE SUPERVISOR [facility] Body fluid SPECIMEN FROM LYMPH NODE OBTAINED BY FINE NEEDLE ASPIRATION BIOPSY / Unknown Collection / Unknown 08/08/2025 3:26 PM HOME RESTORATION SERVICE SUPERVISOR 08/09/2025 6:20 AM HOME RESTORATION SERVICE SUPERVISOR Body fluid specimen (specimen) SPECIMEN FROM LYMPH NODE OBTAINED BY FINE NEEDLE ASPIRATION BIOPSY / Unknown 08/08/2025 3:26 PM HOME RESTORATION SERVICE SUPERVISOR 08/09/2025 6:20 AM HOME RESTORATION SERVICE SUPERVISOR Body fluid specimen (specimen) SPECIMEN FROM LYMPH NODE OBTAINED BY FINE NEEDLE ASPIRATION BIOPSY / Unknown 08/08/2025 3:26 PM HOME RESTORATION SERVICE SUPERVISOR 08/09/2025 6:20 AM HOME RESTORATION SERVICE SUPERVISOR Body fluid specimen (specimen) SPECIMEN FROM LYMPH NODE OBTAINED BY FINE NEEDLE ASPIRATION BIOPSY / Unknown 08/08/2025 3:26 PM HOME RESTORATION SERVICE SUPERVISOR 08/09/2025 6:20 AM HOME RESTORATION SERVICE SUPERVISOR Body fluid specimen (specimen) SPECIMEN FROM LYMPH NODE OBTAINED BY FINE NEEDLE ASPIRATION BIOPSY / Unknown 08/08/2025 3:26 PM HOME RESTORATION SERVICE SUPERVISOR 08/09/2025 6:20 AM HOME RESTORATION SERVICE SUPERVISOR Body fluid specimen (specimen) (Bronchial brushing) 08/08/2025 3:26 PM HOME RESTORATION SERVICE SUPERVISOR 08/09/2025 6:20 AM HOME RESTORATION SERVICE SUPERVISOR Body fluid specimen (specimen) (BAL, right upper lobe) 08/08/2025 3:26 PM HOME RESTORATION SERVICE SUPERVISOR 08/09/2025 6:20 AM HOME RESTORATION SERVICE SUPERVISOR Body fluid specimen (specimen) (BAL, left upper lobe) 08/08/2025 3:26 PM HOME RESTORATION SERVICE SUPERVISOR 08/09/2025 6:20 AM HOME RESTORATION SERVICE SUPERVISOR Jeremy Owen MD PATHOLOGY/CYTOLOGY ORDERABLES Final Result [facility] CLIA# [id number] [address] [place] [address] * (ABNORMAL) MANUAL DIFFERENTIAL (08/08/2025 3:29 AM HOME RESTORATION SERVICE SUPERVISOR) SEGMENTED NEUTROPHILS 98 % 08/08/2025 6:07 AM HOME RESTORATION SERVICE SUPERVISOR [facility] LYMPHOCYTES RELATIVE 1(L) 43 - 53 % 08/08/2025 6:07 AM [facility] MONOCYTES RELATIVE 1 % 08/08/2025 6:07 AM [facility] NEUTROPHILS ABSOLUTE COUNT 10.50(H) 1.90 - 7.00 K/uL 08/08/2025 6:07 AM [facility] LYMPHOCYTES ABSOLUTE 0.10(L) 0.70 - 4.50 K/uL 08/08/2025 6:07 AM [facility] MONOCYTES ABSOLUTE 0.10 0.10 - 1.30 K/uL 08/08/2025 6:07 AM [facility] TOTAL CELLS COUNTED IN DIFF 109 08/08/2025 6:07 AM [facility] RBC MORPHOLOGY Normal 08/08/2025 6:07 AM [facility] PLATELET EST. Consistent w Count 08/08/2025 6:07 AM [facility] Blood Venipuncture / Unknown 08/08/2025 3:29 AM HOME RESTORATION SERVICE SUPERVISOR 08/08/2025 4:06 AM [facility] Frank Macdonald MD HEMATOLOGY ORDERABLES C OM Final Result [facility]# [id number] [address] [facility] [place] [address] * HIV 1 RNA, QUANTITATIVE (08/08/2025 3:29 AM HOME RESTORATION SERVICE SUPERVISOR) Pathologist [facility] HIV 1 RNA COPIES/ML NOT DETECTED NOT DETECTED copies/mL 08/09/2025 2:20 PM HOME RESTORATION SERVICE SUPERVISOR [facility] HIV 1 RNA LOGCOPIES/ML NOT DETECTED NOT DETECTED Log copies/mL 08/09/2025 2:20 PM HOME RESTORATION SERVICE SUPERVISOR [facility] Comment: This test was performed using Real-Time Polymerase Chain Reaction. Reportable Range: 20 copies/mL to 10,000,000 copies/mL (1.30 log copies/mL to 7.00 log copies/mL). FASTING: UNKNOWN Blood Venipuncture / Unknown 08/08/2025 3:29 AM HOME RESTORATION SERVICE SUPERVISOR 08/08/2025 10:11 AM HOME RESTORATION SERVICE SUPERVISOR Narrative [facility] - 08/09/2025 2:20 PM HOME RESTORATION SERVICE SUPERVISOR Performing Organization Information: Site ID: [id number] Name: [facility]aye Address: [address] [address] Director: Bel Garvin MD Frank Macdonald MD CHEMISTRY ORDERABLES Fi nal Result [facility] [phone] * MAGNESIUM LEVEL (08/08/2025 3:29 AM HOME RESTORATION SERVICE SUPERVISOR) Only the most recent of2 resultswithin the time period is included. Pathologist [facility] MAGNESIUM 1.9 1.6 - 2.4 mg/dL 08/08/2025 4:[address] [facility] Blood Venipuncture / Unknown 08/08/2025 3:29 AM HOME RESTORATION SERVICE SUPERVISOR 08/08/2025 4:06 AM HOME RESTORATION SERVICE SUPERVISOR Frank Macdonald MD CHEMISTRY ORDERABLES Fi nal Result Performing Organization Address City/[facility]/ZIP Co de Phone Number [facility]# [id number] [address] [place] [address] [place] [address] * (ABNORMAL) BLOOD GAS ARTERIAL (08/06/2025 9:11 PM HOME RESTORATION SERVICE SUPERVISOR) PH ARTERIAL 7.40 7.35 - 7.45 08/06/2025 9:33 PM HOME RESTORATION SERVICE SUPERVISOR [facility]ORATORY SERVICES [facility] PCO2 ARTERIAL 50(H) 35 - 48 mm Hg 08/06/2025 9:[address] [facility] PO2 ARTERIAL 91 83 - 108 mm Hg 08/06/2025 9:33 PM HOME RESTORATION SERVICE SUPERVISOR [facility] HCO3 ARTERIAL 30(H) 22 - 26 mmol/L 08/06/2025 9:[address] [facility] BASE EXCESS ABG 5.3(H) -2.0 - 3.0 mmol/L 08/06/2025 9:[address] [facility] O2 SAT EST ARTERIAL 97 95 - 99 % 08/06/2025 9:[address] [facility] P/F RATIO ARTERIAL 169 08/06/2025 9:[address] [facility] OXYGEN MODE High Flow Nasal Cannula 08/06/2025 9:[address] [facility] FIO2 54.0 21.0 - 100.0 % 08/06/2025 9:[address] [facility] LITER FLOW 6.0 L/min 08/06/2025 9:[address] [facility] Blood, arterial Arterial / Unknown 2024 9:11 PM HOME RESTORATION SERVICE SUPERVISOR 08/06/2025 9:19 PM HOME RESTORATION SERVICE SUPERVISOR rFank Macdonald MD ABG ORDERABLES Final R esult [facility] CLIA# [id number] [address] [place] [address] * AFB CULTURE WITH STAIN (08/06/2025 7:39 PM HOME RESTORATION SERVICE SUPERVISOR) CULTURE No acid fast bacilli isolated. 09/19/2025 2:[address] [facility] AFB STAIN No acid fast bacilli observed 09/19/2025 2:50 PM [facility] Sputum SPUTUM SPECIMEN OBTAINED BY SPUTUM INDUCTION / Unknown Collection / Unknown 08/06/2025 7:39 PM HOME RESTORATION SERVICE SUPERVISOR 08/06/2025 7:53 PM HOME RESTORATION SERVICE SUPERVISOR Narrative [facility] - 09/19/2025 2:50 PM HOME RESTORATION SERVICE SUPERVISOR Culture is held for a minimum of 6 weeks. Frank Macdonald MD MICROBIOLOGY - GENERAL ORDERABLES Final Result [facility] CLIA# [id number] [address] [place] [address] * LEGIONELLA ANTIGEN, URINE (08/06/2025 5:56 PM HOME RESTORATION SERVICE SUPERVISOR) [facility] LEGIONELLA AG, URINE NOT DETECTED Not Detected 08/06/2025 7:15 PM HOME RESTORATION SERVICE SUPERVISOR [facility] Urine URINE SPECIMEN OBTAINED BY CLEAN CATCH PROCEDURE / Unknown Collection / Unknown 08/06/2025 5:56 PM HOME RESTORATION SERVICE SUPERVISOR 08/06/2025 6:12 PM HOME RESTORATION SERVICE SUPERVISOR Narrative [facility] - 08/06/2025 7:15 PM HOME RESTORATION SERVICE SUPERVISOR This test will not detect infections caused [...] GENERAL ORDERABLES Final Result Performing Organization Address City/[facility]/ZIP Co de Phone Number [facility] CLIA# [id number] [address] [place] [address] * STREPTOCOCCUS PNEUMONIAE ANTIGEN (08/06/2025 5:56 PM HOME RESTORATION SERVICE SUPERVISOR) [facility] STREPTOCOCCUS PNEUMONIAE AG NOT DETECTED Not Detected 08/06/2025 7:16 PM HOME RESTORATION SERVICE SUPERVISOR [facility] Urine URINE SPECIMEN OBTAINED BY CLEAN CATCH PROCEDURE / Unknown Collection / Unknown 08/06/2025 5:56 PM HOME RESTORATION SERVICE SUPERVISOR 08/06/2025 6:12 PM HOME RESTORATION SERVICE SUPERVISOR Frank Macdonald MD MICROBIOLOGY - GENERAL ORDERABLES Final Result [facility] CLIA# [id number] [address] [place] [address] * C. DIFFICILE DETECTION (08/06/2025 5:20 PM HOME RESTORATION SERVICE SUPERVISOR) [facility] TOXIGENIC C DIFFICILE NOT DETECTED Not Detected 08/06/2025 6:53 PM HOME RESTORATION SERVICE SUPERVISOR [facility] Stool STOOL SPECIMEN / Unknown Collection / Unknown 08/06/2025 5:20 PM HOME RESTORATION SERVICE SUPERVISOR 08/06/2025 5:51 PM HOME RESTORATION SERVICE SUPERVISOR Narrative [facility] - 08/06/2025 6:53 PM HOME RESTORATION SERVICE SUPERVISOR This assay is used to detect Toxigenic C. difficile target(B gene) DNA sequences in unformed stool specimens. If toxigenic C. difficile is not detected, but clinical suspicion is high please consult ID for consultation and potential repeat testing. This test should not be used as a test of cure. Rhonda Valerio MD MICROBIOLOGY - [facility] AL ORDERABLES Final Result [facility]# [id number] [address] [place] [address] * BLOOD CULTURE (08/06/2025 5:17 PM HOME RESTORATION SERVICE SUPERVISOR) Only the most recent of2 resultswithin the time period is included. Pathologist [facility] BLOOD CULTURE No growth 08/13/2025 1:40 PM HOME RESTORATION SERVICE SUPERVISOR [facility] Blood (Peripheral) Venipuncture / Unknown 08/06/2025 5:17 PM HOME RESTORATION SERVICE SUPERVISOR 08/06/2025 5:30 PM HOME RESTORATION SERVICE SUPERVISOR Frank Macdonald MD MICROBIOLOGY - GENERAL ORDERABLES Final Result [facility]# [id number] [address] [place] [address] * (ABNORMAL) CD4 COUNT AND T4T8 RATIO (08/06/2025 5:17 PM HOME RESTORATION SERVICE SUPERVISOR) CD3 61 57 - 85 % 08/08/2025 3:39 AM HOME RESTORATION SERVICE SUPERVISOR [facility] CD3 ABSOLUTE 221(L) 840 - 3060 cells/uL 08/08/2025 3:39 AM HOME RESTORATION SERVICE SUPERVISOR [facility] % CD4 (T CELLS) 13(L) 30 - 61 % 3:39 AM HOME RESTORATION SERVICE SUPERVISOR [facility] ABSOLUTE CD4+ CELLS 48(L) 490 - 1740 cells/uL 08/08/2025 3:39 AM HOME RESTORATION SERVICE SUPERVISOR [facility] % CD8 (T CELLS) 48(H) 12 - 42 % 3:39 AM HOME RESTORATION SERVICE SUPERVISOR [facility] ABSOLUTE CD8+ CELLS 173(L) 180 - 1170 cells/uL 08/08/2025 3:39 AM HOME RESTORATION SERVICE SUPERVISOR [facility] CD4/CD8 RATIO 0.28(L) 0.86 - 5.00 08/08/2025 3:39 AM HOME RESTORATION SERVICE SUPERVISOR [facility] LYMPHOCYTE ABSOLUTE 360(L) 850 - 3900 cells/uL 08/08/2025 3:39 AM HOME RESTORATION SERVICE SUPERVISOR [facility] REFERENCE LAB ST Blood Venipuncture / Unknown 08/06/2025 5:17 PM HOME RESTORATION SERVICE SUPERVISOR 08/06/2025 5:30 PM HOME RESTORATION SERVICE SUPERVISOR Narrative [facility] - 08/08/2025 3:39 AM HOME RESTORATION SERVICE SUPERVISOR Performing Organization Information: Site ID: CB Name: [facility] Address: [address] [place] [id number] Director: Naseem Montero Frank Macdonald MD HEMATOLOGY ORDERABLES F inal Result [facility] RE[facility]ENCE [facility] [phone] * (ABNORMAL) HEMOGLOBIN A1C (08/06/2025 5:17 PM HOME RESTORATION SERVICE SUPERVISOR) HEMOGLOBIN A1C 5.9(H) <5.7 % 08/06/2025 6:03 PM HOME RESTORATION SERVICE SUPERVISOR [facility] EST. AVG GLUCOSE, A1C 123 mg/dL 08/06/2025 6:03 PM HOME RESTORATION SERVICE SUPERVISOR [facility] Blood Venipuncture / Unknown 08/06/2025 5:17 PM HOME RESTORATION SERVICE SUPERVISOR 08/06/2025 5:30 PM HOME RESTORATION SERVICE SUPERVISOR [facility] LABORATORY [facility] - 08/06/2025 6:03 PM HOME RESTORATION SERVICE SUPERVISOR HGB A1C INTERPRETATION NORMAL: <5.7% PRE-DIABETES: 5.7 - 6.4% DIABETES: 6.5% OR GREATER Frank Macdonald MD CHEMISTRY ORDERABLES Fi nal Result [facility]# [id number] [address] [place] [address] [address] from Last 3 Months Insurance [place] RX INFOCROSSING Medicaid RX BLAS PLANS (INTERNAL) [facility] RX [facility] SOLUTIONS Commercial RX [facility]VE PHARM[facility]Y Paymentus Commercial Advance Directives For more information, please contact: [phone] Documents on File Type Date Recorded Patient Party Plan Sales Host/Hostess Expl anation Advance Directive POA 08/15/2025 10:57 [...] Agents on File Name Relationship Healthcare Agent [facility] Communication Felisa Zavala Daughter Health Care Agent
--- OUTSIDE RECORDS SUMMARY | 2025-09-19 19:01 | XMS_ITS | Encounter Summary ---
Author Organization [facility] Address [address] [place] [address] Care Team Providers Care Photographic Process Worker Name Role Phone Unavailable Primary Care Provider Unavailabl e Reason for Visit * Reason Onset Date Comments Hospital Follow Up 09/17/2025 Encounter Details Date Type Department Care Team (Late st Contact Info) Description 09/17/[address] [facility] Pulmonology [facility] [address] [place] [address] Farahat, Hamzah Duke MD [address] [place] [address] Hospital Follow Up Social History [...] worry about transportation for future doctor visits, pick up worker medication, etc.? No 2024 Housing Stability [...] Hamzah Butt MD - 09/17/2025 12:56 PM RN INVASIVE Fine to see in October. Can add onto late a.m. or Wednesday afternoon if nothing available. JF INVASIVE * Telephone Encounter - Fara Amaya - 09/17/2025 12:25 PM RN INVASIVE Patient recently admitted for dyspnea and you saw patient in hospital, an rn from oncology called to get patient in for hospital follow up. No openings until Oct, would you like to see patient sooner? INVASIVE documented in this encounter Plan of Treatment Upcoming Encounters Date Type Department Care Team (Late st Contact Info) Description 10/03/2025 2:45 PM RN INVASIVE Office Visit [facility] Oncology and Hematology [facility] [address] [place] [address] Pa Go MD [address] [place] [address] documented as of this encounter Visit Diagnoses Not on filedocumented in this encounter
--- OUTSIDE RECORDS SUMMARY | 2025-09-19 19:01 | XMS_ITS | Encounter Summary ---
Author Organization [facility] Address [address] [place] [address] Care Team Providers Care Human Resources Professional Name Role Phone Unavailable Primary Care Provider Unavailabl e Encounter Details Date Type Department Care Team (Late st Contact Info) Description 09/16/2025 Orders Only [facility] Oncology and Hematology [facility] [address] [place] [address] Pa Go MD [address] [place] [address] Post-op pain Social History Tobacco [...] worry about transportation for future doctor visits, belt picker medication, etc.? No 2024 Housing Stability [...] st Contact Info) Description 10/03/2025 2:45 PM BOILER CONTROL TECHNICIAN Office Visit [facility] Oncology and Hematology [facility] [address] [place] [id number] Pa Go MD [address] [place] [address] documented as of this encounter Visit Diagnoses Diagnosis Post-op pain Other acute postoperative pain documented in this encounter
--- OUTSIDE RECORDS SUMMARY | 2025-09-19 19:01 | XMS_ITS | Clinical Summary ---
Author Organization [facility] Address [address] [place] [id number] Care Team Providers Care Casing Cooker Name Role Phone Donya Mejia Primary Care Provider [phone] Allergies Active Allergy Reactions Criticality Noted Date Comments Meperidine Anaphylaxis High 08/17/2022 [place] Rash Medium 08/17/2022 Medications albuterol HFA (PROVENTIL [...] Type Department Care Team Description 07/06/2025 Telephone [facility] Pulmonary at [address] [place] [address] Izzy Colin CMA from Last [...] on file Legal Sex Female 1:28 PM DATA REPORT ANALYST Gender Identity Not on file Sexual Orientation Not on file Last Filed Vital Signs Vital Sign Reading Time Taken Comments Blood Pressure - - Pulse - - Temperature - - Respiratory Rate - - Oxygen Saturation - - Inhaled Oxygen Concentration - - Weight 49.9 kg (110 lb) 08/17/2022 12:54 PM DATA REPORT ANALYST Height 160 cm (5' 3) 08/17/2022 12:54 PM DATA REPORT ANALYST Body Mass Index 19.49 08/17/2022 12:54 PM DATA REPORT ANALYST Plan of Treatment Not on file Insurance [facility] [place] [address] [place] [address] Care Teams Casing Cooker Relationship Specialty Start Date End Date Donya Mejia PA [address] [place] [id number] PCP - General Physician Wedding Decorator 03/26/22
[2025-09-19] MEDS: HYDROcodone/acetaminophen (*CRX) 10-325 MG TABLET 1 TAB PO (19:07)
[2025-09-19 19:15] LABS: Hematocrit 34.6 % (37.0-47.0); Hemoglobin 11.0 g/dL (12.0-15.0); Immature Granulocyte Percent A 4.0 % (0-0.5); Lymphocytes Absolute Auto 0.68 K/mm3 (0.9-3.2); Mean Corpuscular HGB Conc 31.8 g/dl (32-36); Mean Corpuscular Hemoglobin 26.6 pg (26-34); Mean Corpuscular Volume 83.6 fl (80-100); Nucleated Red Blood Cells Absolute Auto 0.000 K/mm3 (0.0-0.012); Nucleated Red Blood Cells Perc 0.0 % (0.0-0.2); Platelet Count Result 349 k/mm3 (150-375); Red Blood Count 4.14 M/mm3 (4.2-5.4); White Blood Count 12.6 K/mm3 (4.5-10.0)
[2025-09-19 19:26] LABS: Alanine Aminotransferase 37 U/L (6-35); Albumin Level 3.6 g/dL (3.5-5.1); Alkaline Phosphatase 187 U/L (38-126); Anion Gap 2 mmol/L (4-12); Aspartate Amino Transferase 40 U/L (14-36); Bilirubin,Total 0.3 mg/dL (0.2-1.3); Blood Urea Nitrogen 12 mg/dL (7-17); Calcium 9.0 mg/dL (8.4-10.2); Carbon Dioxide 35 mmol/L (22-30); Chloride 92 mmol/L (98-107); Estimated CRCL calculation 83 ml/min; Estimated Glomerular Filt Rate > 60; Glucose 117 mg/dL (65-110); Magnesium 1.9 mg/dL (1.6-2.3); Potassium 4.3 mmol/L (3.4-5.0); Sodium 129 mmol/L (137-145); Total Protein 7.0 g/dL (6.3-8.2)
[2025-09-19 19:37] LABS: INR 0.9; Partial Thromboplastin Time 22.9 Seconds (22.3-36.8); Prothrombin Time 12.1 Seconds (11.1-14.7)
[2025-09-19 19:38] LABS: Troponin I < 0.012 ng/mL (0.000-0.034)
[2025-09-19 19:55] LABS: Influenza A QL RT-PCR Negative (Negative); Influenza B QL RT-PCR Negative (Negative); RSV RNA, RT-PCR Negative (Negative); SARS-CoV-2 RNA PCR Negative (Negative)
[2025-09-19] MEDS: MAGNESIUM SULF 2 GM/WATER 50ML 2 GM/50 ML BAG IVPB (20:03)
--- NOTE | 2025-09-19 20:40 | ED_ITS ---
HPI - General Adult General Chief complaint: Shortness of Breath/Dyspnea Stated complaint: SOB Time Seen by Provider: 09/19/25 17:56 History of Present Illness HPI narrative: 65-year-old female presenting with increased shortness of breath that began today. Patient has a history of metastatic lung cancer and has a port placed. Patient states she is actively being treated for pneumonia and reports that she recently had 2 chest tubes removed after sustaining a pneumothorax following her port placement. She sees oncologist Dr. Pa Go at [facility] and had planned to go there by EMS but EMS told her they could not transfer her that distance. Related Data Home Medications ?Medication ?Instructions ?Recorded ?Confirmed ?Last Taken ?Type budesonide-formoterol HFA 80 2 puff inhalation BID 03/2508/06/25 04/12/25 History mcg-4.5 mcg/actuation aerosol inhaler (Symbicort) tiotropium bromide 1.25 2 puff inhalation DAILY 06/2705/28/25 04/12/25 History mcg/actuation mist for inhalation (Spiriva Respimat) darunavir 800 mg tablet 800 mg PO DAILY 04/12/2512/2604/12/25 History emtricitabine 200 mg-tenofovir 1 tablet PO DAILY 04/1208/06/25 04/12/25 History disoproxil fumarate 300 mg tablet (Truvada) ritonavir 100 mg tablet 100 mg PO DAILY 04/12/2512/2604/12/25 History sodium chloride 0.65 % nasal spray 2 spray intranasal QID PRN nasal 04/12/25 08/06/25 04/12/25 History aerosol (Sanborn Saline) congestion tiotropium bromide 2.5 2 puff inhalation Q24H 08/0608/06/25 Unknown History mcg/actuation mist for inhalation (Spiriva Respimat) Allergies Allergy/AdvReac Type Severity Reaction Status Date / Time meperidine Allergy Unknown anaphlaxis Verified 04/12/25 17:57 orange Allergy Unknown Hives Verified 04/12/25 17:57 Review of Systems 2 Review of Systems: All systems reviewed & are unremarkable except as noted in HPI and below PMFSH Past Medical History Medical History Systolic heart failure Diastolic dysfunction Without diagnosis of CHF. Echo 08/2022: EF 50 55%, grade 1 diastolic dysfunction, normal right ventricular systolic function, mild mitral and tricuspid valve regurgitation Rupture long head biceps tendon Chronic steroid use 10 mg prednisone daily Essential hypertension Chronic hypoxic respiratory failure, on home oxygen therapy Cavernous hemangioma HIV (human immunodeficiency virus infection) COPD (chronic obstructive pulmonary disease) Surgical History Surgical History History of tonsillectomy History of hysterectomy Family History Family History Grandparent Diabetes mellitus Mother Diabetes mellitus Social History Social History Social History: She lives at home with her . She states that they been for few years. Her daughter recently moved in with the patient's 2 grand children and the daughters 2 dogs and 1 cat. She reports she used to smoke 1 pack of cigarettes per day from the time she was 7 years old in till 2020. She denies any illicit substance use. It sounds as if the patient likely drink at least a moderate amount of alcohol if not drinking on a daily basis for many years but quit drinking in 1994. 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 Code status: Full code Surrogate decision maker: Tha () Smoking packs per day: 1 Smoking cigarettes per day: 20.0 Years smoked: 55 Smoking pack-years: 55.00 Smoking status: Former smoker Second hand tobacco smoke exposure: Yes Alcohol intake: former Alcohol use details: She used to drink somewhat frequently when she was a plating and point assembly supervisor but quit in 1994. Substance use: never Substance use type: does not use Lack of Transportation: No Lack of Food: Never True Current Housing: I Have Housing Concerned About Future Housing: No Difficulty Paying Gas/Electric Bills: No Difficulty Paying for Meds: No Currently Unemployed: No Education: Bachelor's Degree Difficulty w/ Childcare or Family Care: No Spiritual care concerns: No Exam 2 Narrative: GENERAL: Ill-appearing. Frail. HEAD: Normocephalic, atraumatic. EYES: PERRLA and EOMI. ENT: Nares clear, no rhinorrhea or epistaxis. Mucous membranes moist. Oropharynx without tonsillar hypertrophy exudate or other lesions. Bilateral TMs pearly alejo non-bulging NECK: Supple. No adenopathy or masses. No carotid bruits or JVD CHEST: Wheezing in all lung waddell. No respiratory distress. HEART: Regular rate and rhythm. No murmur heard. Normal peripheral pulses. ABDOMEN: Soft, nontender, nondistended, normal active bowel sounds. EXTREMITIES: Normal range of motion. No edema. SKIN: Warm, dry, no rash. NEURO: No focal deficits. Alert and oriented x3. PSYCH: Normal mood and affect Course Vital Signs Vital signs: Vital Signs Temperature 98.4 F 09/19/25 17:32 Pulse Rate 110 H 09/19/25 17:32 Respiratory Rate 26 H 09/19/25 17:32 Blood Pressure 137/87 09/19/25 17:32 Pulse Oximetry 98 09/19/25 17:32 Temperature 98.4 F 09/19/25 17:32 Pulse Rate 97 09/19/25 22:16 Respiratory Rate 20 09/19/25 22:16 Blood Pressure 147/88 H 09/19/25 22:16 Pulse Oximetry 91 09/19/25 22:16 Oxygen Delivery Room Air 09/19/25 17:49 MDM MDM Narrative Medical decision making narrative: 65-year-old female presenting with increased shortness of breath that began today. Patient has a history of metastatic lung cancer and has a port placed. Patient states she is actively being treated for pneumonia and reports that she recently had 2 chest tubes removed after sustaining a pneumothorax following her port placement. She sees oncologist Dr. Pa Go at [facility] and had planned to go there by EMS but EMS told her they could not transfer her that distance. She is on 3 L NC at baseline with EMS increasing this to 4 L NC to achieve appropriate oxygen saturations. Upon my initial assessment patient appears frail and sickly but has stable vitals. Significant wheezing on clinical exam. CTA and CXR are negative for acute processes. EKG is without high-risk changes. Labs are within normal limits for the patient. Administered DuoNeb, magnesium, and Solu-Medrol. Lung sounds improved on reexamination, though mild wheezing persists. Oxygen saturations were stable throughout her visit. Advised to continue with 4L NC at home. Patient is felt to be a reasonable candidate for additional evaluation as an outpatient. Strict return precautions provided. Differential Diagnosis Differential Diagnosis: Differential diagnostic considerations for shortness of breath include respiratory failure, pulmonary embolus, ACS, COPD, CHF, pneumonia, pneumothorax, asthma, metabolic disorder, anxiety. Medical Records I have reviewed the following patient records and this information was taken into consideration when formulating the assessment and plan.: previous labs, previous ER visits, previous hospitalizations and previous clinic visits Lab Data MDM Lab Attestation statement: I personally reviewed the patient's lab results. 09/19/25 19:04 09/19/25 19:04 Labs: Lab Results 09/19/25 09/19/25 09/19/25 Range/Units 19:04 19:11 20:56 WBC 12.6 H (4.5-10.0) K/mm3 RBC 4.14 L (4.2-5.4) M/mm3 Hgb 11.0 L (12.0-15.0) g/dL Hct 34.6 L (37.0-47.0) % MCV 83.6 (80-100) fl MCH 26.6 (26-34) pg MCHC 31.8 L (32-36) g/dl RDW 15.2 H (11.5-14.5) % Plt Count 349 (150-375) k/mm3 MPV 9.2 (7.4-10.4) fl Immature Gran % (Auto) 4.0 H (0-0.5) % Neut % (Auto) 84.6 H (45.5-73.1) % Lymph % (Auto) 5.4 L (18.3-44.2) % Zavala % (Auto) 5.6 (2.6-8.5) % Eos % (Auto) 0.1 (0-4.4) % Baso % (Auto) 0.3 (0.2-1.2) % Lymph # (Auto) 0.68 L (0.9-3.2) K/mm3 Zavala # (Auto) 0.7 H (0.1-0.6) K/mm3 Eos # (Auto) 0.0 (0-0.3) K/mm3 Baso # (Auto) 0.0 (0.0-0.1) K/mm3 Abs Immat Gran (auto) 0.51 H (0.00-0.031) K/mm3 Absolute Neuts (auto) 10.7 H (1.3-6.7) K/mm3 Absolute Nucleated RBC 0.000 (0.0-0.012) K/mm3 Nucleated RBC % 0.0 (0.0-0.2) % PT 12.1 (11.1-14.7) Seconds INR 0.9 APTT 22.9 (22.3-36.8) Seconds Sodium 129 L (137-145) mmol/L Potassium 4.3 (3.4-5.0) mmol/L Chloride 92 L (98-107) mmol/L Carbon Dioxide 35 H (22-30) mmol/L Anion Gap 2 L (4-12) mmol/L BUN 12 D (7-17) mg/dL Creatinine 0.39 L (0.7-1.0) mg/dL Estim Creat Clear Calc 83 ml/min Estimated GFR > 60 (59 - ) Glucose 117 H (65-110) mg/dL Lactic Acid 1.4 (0.7-2.0) mmol/L Calcium 9.0 (8.4-10.2) mg/dL Magnesium 1.9 (1.6-2.3) mg/dL Total Bilirubin 0.3 (0.2-1.3) mg/dL AST 40 H (14-36) U/L ALT 37 H (6-35) U/L Alkaline Phosphatase 187 H (38-126) U/L Troponin I < 0.012 (0.000-0.034) ng/mL Total Protein 7.0 (6.3-8.2) g/dL Albumin 3.6 (3.5-5.1) g/dL Urine Color Yellow (Yellow) Urine Appearance Clear (Clear) Urine pH 7.0 (5.0-9.0) Ur Specific [place] > 1.045 H (1.001-1.035) Urine Protein Negative (Negative) mg/dL Urine Glucose (UA) Negative (Negative) mg/dL Urine Ketones Negative (Negative) mg/dL Ur Blood (Man) Negative (Negative) Urine Nitrate Negative (Negative) Urine Bilirubin Negative (Negative) Urine Urobilinogen 1.0 (<2.0) mg/dL Leukocyte Esterase Rfl Negative (Negative) GAYATHRI/UL Influenza A (RT-PCR) Negative (Negative) Influenza B (RT-PCR) Negative (Negative) RSV (RT-PCR) Negative (Negative) SARS-CoV-2 RNA (RT-PCR) Negative (Negative) Imaging Data Attestation: I personally reviewed and interpreted this imaging study as follows: Radiologist's impression: ITS Impressions Chest X-Ray 09/19/25 19:23 IMPRESSION: Right perihilar opacity may represent mass or enlarged lymph node [ ] Chest CTA 09/19/25 19:52 IMPRESSION: There is no pulmonary embolism, aortic dissection, pericardial fluid or thoracic aneurysm. There are extensive mediastinal and right hilar lymphadenopathy suggestive of metastases. Multiple hepatic masses suggestive of metastases. All CT scans at this facility are performed using low dose modulation techniques as appropriate to perform exam including the following: automated exposure control; use of iterative reconstruction technique; adjustment of the mA and/or kV according to patient size (this includes techniques or standardized protocols for targeted exams where dose is matched to indication/reason for exam). ECG Data EKG #1: ECG completion date: 09/19/25 ECG completion time: 20:40 normal rate, sinus rhythm and no acute changes Discharge Plan Discharge Clinical Impression: Shortness of breath, Metastatic primary lung cancer Patient Disposition: Home Condition: Stable Instructions: Shortness of Breath (ED) Additional Instructions: Return to the emergency department if you experience fever, chest pain, shortness of breath, abdominal pain with nausea and vomiting, weakness, numbness/tingling, or any other symptoms that are concerning to you. Take medications as prescribed. Continue home oxygen at 4 L/min via nasal canula at home. Follow-up with your oncology team and other specialists for ongoing management of metastatic disease. Patient Language: Polish Prescriptions: New prednisone 50 mg tablet 50 mg PO DAILY Qty: 5 0RF No Action Spiriva Respimat 1.25 mcg/actuation mist 2 puff inhalation DAILY budesonide-formoterol [Symbicort] 80-4.5 mcg/actuation Hfa Aerosol Inhaler 2 puff INHALATION BID ipratropium-albuterol 0.5 mg-3 mg(2.5 mg base)/3 mL solution for nebulization 3 ml inhalation Q6H PRN (Reason: shortness of breath or wheezing) Qty: 90 0RF losartan 25 mg tablet 25 mg PO DAILY Qty: 30 0RF albuterol sulfate 90 mcg/actuation HFA aerosol inhaler 1 inh inhalation QID PRN (Reason: shortness of breath or wheezing) Qty: 6.7 0RF darunavir 800 mg tablet 800 mg PO DAILY emtricitabine-tenofovir (TDF) [Truvada] 200-300 mg tablet 1 tablet PO DAILY Sanborn Saline 0.65 % aerosol,spray 2 spray intranasal QID PRN (Reason: nasal congestion) ritonavir 100 mg tablet 100 mg PO DAILY guaifenesin [Mucus Relief ER] 600 mg Tablet Extended Release 12hr 1,200 mg PO Q12HR Qty: 30 0RF levofloxacin 750 mg tablet 750 mg PO DAILY 2 Days Qty: 2 0RF sulfamethoxazole-trimethoprim [Bactrim DS] 800-160 mg tablet 2 tablet PO Q8H Qty: 96 0RF prednisone 2.5 mg Tablet 7.5 mg PO DAILY@0800 Qty: 3 0RF ondansetron 4 mg tablet,disintegrating 4 mg PO Q8H PRN (Reason: nausea and vomiting) 5 Days Qty: 15 0RF Spiriva Respimat 2.5 mcg/actuation mist 2 puff INHALATION Q24H Follow-up/Referrals: PHYSICIAN,[facility] [Primary Care Provider, Internal Medicine]
[2025-09-19] MEDS: IPRATROPIUM BR 0.02% INH SOLN 0.5 MG/2.5 ML VIAL 1 MG INHALATION (20:44)
[2025-09-19] MEDS: ALBUTEROL SULFATE NEB 2.5 MG/3 ML INH 10 MG INHALATION (20:44)
[2025-09-19 21:19] LABS: Add Urine Microscopic? NO; Appearance Urine Clear (Clear); Glucose Urine UA Negative (Negative); Leukocyte Esterase Ur Negative LEU/UL (Negative); Nitrate Urine Negative (Negative); Specific Grav Ur > 1.045 (1.001-1.035)
== END 2025-09-19 22:50 | disposition home or self-care (01) ==
DX: J18.9 Pneumonia, unspecified organism (principal); C34.90 Malignant neoplasm of unspecified part of unspecified bronchus or lung; C79.9 Secondary malignant neoplasm of unspecified site; Z20.822 Contact with and (suspected) exposure to COVID-19; J44.9 Chronic obstructive pulmonary disease, unspecified; J96.11 Chronic respiratory failure with hypoxia; Z99.81 Dependence on supplemental oxygen; I11.0 Hypertensive heart disease with heart failure; I50.20 Unspecified systolic (congestive) heart failure; Z21 Asymptomatic human immunodeficiency virus [HIV] infection status; Z87.891 Personal history of nicotine dependence; Z90.710 Acquired absence of both cervix and uterus; Z79.899 Other long term (current) drug therapy; R16.0 Hepatomegaly, not elsewhere classified
CPT/HCPCS: 36415; 71046; 71275; 80053; 81003; 83605; 83735; 84484; 85025; 85610; 85730; 87637; 93005; 94640; 96365; 96374; 99284; A9270; J2919; J3475; Q9967